=== PATIENT | female | born 1955 | race Two or more races ===

== ENCOUNTER → 2020-03-05 13:02 | Outpatient (BNVA) | payer OTHER, SELFPAY | PROVIDERS: PCP Internal Medicine; Visit Provider Internal Medicine | DX: I82.402 Acute embolism and thrombosis of unspecified deep veins of left lower extremity (principal); Z51.81 Encounter for therapeutic drug level monitoring; Z79.01 Long term (current) use of anticoagulants | CPT/HCPCS: 85610; 99211 ==

== ENCOUNTER → 2020-03-19 13:15 | Outpatient (BNVA) | payer OTHER, SELFPAY | PROVIDERS: PCP Internal Medicine; Visit Provider Internal Medicine | DX: I82.402 Acute embolism and thrombosis of unspecified deep veins of left lower extremity (principal); Z51.81 Encounter for therapeutic drug level monitoring; Z79.01 Long term (current) use of anticoagulants | CPT/HCPCS: 85610; 99211 ==

== ENCOUNTER → 2020-03-26 13:28 | Outpatient (BNVA) | payer OTHER, SELFPAY | PROVIDERS: PCP Internal Medicine; Visit Provider Internal Medicine | DX: I82.402 Acute embolism and thrombosis of unspecified deep veins of left lower extremity (principal); Z51.81 Encounter for therapeutic drug level monitoring; Z79.01 Long term (current) use of anticoagulants | CPT/HCPCS: 85610; 99211 ==

== ENCOUNTER → 2020-04-03 11:42 | Outpatient (BNVA) | payer OTHER, SELFPAY | PROVIDERS: PCP Internal Medicine; Visit Provider Internal Medicine | DX: I82.402 Acute embolism and thrombosis of unspecified deep veins of left lower extremity (principal); Z51.81 Encounter for therapeutic drug level monitoring; Z79.01 Long term (current) use of anticoagulants | CPT/HCPCS: 85610; 99211 ==

== ENCOUNTER → 2020-04-15 14:23 | Outpatient (BNVA) | payer OTHER, SELFPAY | PROVIDERS: Visit Provider Internal Medicine | DX: I82.409 Acute embolism and thrombosis of unspecified deep veins of unspecified lower extremity (principal); Z51.81 Encounter for therapeutic drug level monitoring; Z79.01 Long term (current) use of anticoagulants | CPT/HCPCS: 85610; 99211 ==

== ENCOUNTER → 2020-05-01 13:24 | Outpatient (BNVA) | payer OTHER, SELFPAY | PROVIDERS: PCP Internal Medicine; Visit Provider Internal Medicine | DX: I82.409 Acute embolism and thrombosis of unspecified deep veins of unspecified lower extremity (principal); Z51.81 Encounter for therapeutic drug level monitoring; Z79.01 Long term (current) use of anticoagulants | CPT/HCPCS: 85610; 99211 ==

== ENCOUNTER → 2020-05-14 13:04 | Outpatient (BNVA) | payer OTHER, SELFPAY | PROVIDERS: PCP Internal Medicine; Visit Provider Internal Medicine | DX: I82.409 Acute embolism and thrombosis of unspecified deep veins of unspecified lower extremity (principal); Z51.81 Encounter for therapeutic drug level monitoring; Z79.01 Long term (current) use of anticoagulants | CPT/HCPCS: 85610; 99211 ==

== ENCOUNTER → 2020-06-04 13:05 | Outpatient (BNVA) | payer OTHER, SELFPAY | PROVIDERS: PCP Internal Medicine; Visit Provider Internal Medicine | DX: I82.409 Acute embolism and thrombosis of unspecified deep veins of unspecified lower extremity (principal); Z79.01 Long term (current) use of anticoagulants; Z51.81 Encounter for therapeutic drug level monitoring | CPT/HCPCS: 85610; 99211 ==

== ENCOUNTER → 2020-07-02 09:12 | Outpatient (BNVA) | payer OTHER, SELFPAY | PROVIDERS: PCP Internal Medicine; Visit Provider Internal Medicine | DX: I82.402 Acute embolism and thrombosis of unspecified deep veins of left lower extremity (principal); Z51.81 Encounter for therapeutic drug level monitoring; Z79.01 Long term (current) use of anticoagulants | CPT/HCPCS: 85610; 99211 ==

== ENCOUNTER → 2020-07-30 11:34 | Outpatient (BNVA) | payer OTHER, SELFPAY | PROVIDERS: PCP Internal Medicine; Visit Provider Internal Medicine | DX: I82.402 Acute embolism and thrombosis of unspecified deep veins of left lower extremity (principal); Z51.81 Encounter for therapeutic drug level monitoring; Z79.01 Long term (current) use of anticoagulants | CPT/HCPCS: 85610; 99211 ==

== ENCOUNTER → 2020-08-20 11:01 | Outpatient (BNVA) | payer OTHER, SELFPAY | PROVIDERS: PCP Internal Medicine; Visit Provider Internal Medicine | DX: I82.402 Acute embolism and thrombosis of unspecified deep veins of left lower extremity (principal); Z51.81 Encounter for therapeutic drug level monitoring; Z79.01 Long term (current) use of anticoagulants | CPT/HCPCS: 85610; 99211 ==

== ENCOUNTER 2020-08-27 11:05 | Outpatient (REF) | payer OTHER, SELFPAY ==
[2020-08-27 13:17] LABS: MANUAL DIFF FLAG NO
[2020-08-27 13:23] LABS: Basophils Percent Auto 0.3 % (0-2); Eosinophils Absolute Auto 0.2 X10*3/uL (0.0-0.4); Eosinophils Percent Auto 2.9 % (0-4); Hematocrit 42.9 % (37-47); Hemoglobin 14.3 g/dl (12.0-16.0); Imm Gran Abs Auto 0.01 X10*3/uL (0.00-0.03); Imm Gran Pct Auto 0.2 % (0.0-0.4); Lymphocytes Absolute Auto 1.6 X10*3/uL (1.2-4.9); Lymphocytes Percent Auto 27.3 % (20-40); Mean Corpuscular HGB Conc 33.3 g/dl (31.0-35.0); Mean Corpuscular Hemoglobin 28.7 pg (27.0-33.0); Mean Corpuscular Volume 86.1 fL (80-98); Monocytes Absolute Auto 0.5 X10*3/uL (0.1-1.2); Monocytes Percent Auto 8.9 % (2-11); Neutrophils Absolute Auto 3.5 X10*3/uL (2.0-8.3); Neutrophils Percent Auto 60.4 % (45-73); Platelet Count 204 X10*3/uL (160-400); Red Blood Count 4.98 X10*6/uL (4.20-5.50); Red Cell Distribution Width 13.8 % (11.0-16.0); White Blood Count 5.9 X10*3/uL (4.8-10.8)
[2020-08-27 13:30] LABS: D Dimer 268 NG/ML
[2020-08-27 13:37] LABS: Estimated Average Glucose 206 mg/dL; Hemoglobin A1c % 8.8 %
[2020-08-27 13:43] LABS: Alanine Aminotransferase 37 U/L (0-31); Alkaline Phosphatase 92 U/L (39-117); Anion Gap 14 (12-20); Aspartate Amino Transferase 34 U/L (5-31); Bilirubin Direct 0.3 mg/dL (0.0-0.5); Bilirubin Total 0.7 mg/dL (0.0-1.0); Blood Urea Nitrogen 20 mg/dL (9-16); Calcium 9.2 mg/dL (8.4-10.2); Carbon Dioxide 26 mmol/L (22-29); Chloride 103 mmol/L (96-108); Estimated Glomerular Filt Rate 53; Glucose Random 313 mg/dL (60-115); Potassium 4.6 mmol/L (3.3-5.1); Sodium 138 mmol/L (135-145); Total Protein 6.8 g/dL (6.5-8.0)
[2020-08-27 13:50] LABS: Creatinine Urine 119.58 mg/dL; Microalbum/Creatinine Ratio Ur 64.3 ug/mg cr
[2020-08-28 05:12] LABS: LDL Cholesterol Direct 83 mg/dL (<100)
== END 2020-08-27 11:06 | disposition home or self-care (01) ==
LOC: HO.LAB 11:05
PROVIDERS: Absent Provider Internal Medicine; PCP Internal Medicine; Referring Provider Internal Medicine Medical Oncology; Visit Provider Internal Medicine
DX: E13.9 Other specified diabetes mellitus without complications (principal); N18.2 Chronic kidney disease, stage 2 (mild); E55.9 Vitamin D deficiency, unspecified; K21.9 Gastro-esophageal reflux disease without esophagitis; E66.01 Morbid (severe) obesity due to excess calories; I82.409 Acute embolism and thrombosis of unspecified deep veins of unspecified lower extremity; Z79.4 Long term (current) use of insulin
CPT/HCPCS: 36415; 80053; 80076; 82043; 82248; 83036; 83721; 85025; 85379; 85610; 99211

== ENCOUNTER 2020-09-08 11:29 | Outpatient (REF) | payer OTHER, SELFPAY ==
--- NOTE | ~2020-09-08 | MM_ITS ---
EXAMINATION: MM SCREENING DIGITAL BREAST TOMOSYNTHESIS, BILATERAL CLINICAL INFORMATION: Screening. Asymptomatic. The lifetime risk of breast cancer based on the Tyrer-Cuzick Model is 8.9%. COMPARISON: Mammography: June 17, 2019 and studies dating back to January 30, 2014 TECHNIQUE: Digital breast tomosynthesis is performed in both the craniocaudal and mediolateral oblique views along with computer-aided detection (CAD). Synthesized 2D images are generated from the tomosynthesis. FINDINGS: The breasts are almost entirely fatty (ACR BI-RADS breast composition Category a). There are no significant masses, abnormal calcifications, or other abnormalities. MM/MM tomosynthesis screening BI IMPRESSION: There are no significant changes from prior study. ASSESSMENT: BI-RADS 1: Negative RECOMMENDATION: Routine annual mammography screening. This patient's information was entered into a reminder system with a target due date for their next mammogram.
== END 2020-09-08 11:30 | disposition home or self-care (01) ==
LOC: HO.MAMMO 11:29
PROVIDERS: PCP Internal Medicine; Visit Provider Internal Medicine
DX: Z12.31 Encounter for screening mammogram for malignant neoplasm of breast (principal)
CPT/HCPCS: 77063; 77067

== ENCOUNTER → 2020-09-10 11:01 | Outpatient (BNVA) | payer OTHER, SELFPAY | PROVIDERS: PCP Internal Medicine; Visit Provider Internal Medicine | DX: I82.402 Acute embolism and thrombosis of unspecified deep veins of left lower extremity (principal); Z51.81 Encounter for therapeutic drug level monitoring; Z79.01 Long term (current) use of anticoagulants | CPT/HCPCS: 85610; 99211 ==

== ENCOUNTER → 2020-10-01 11:20 | Outpatient (BNVA) | payer OTHER, SELFPAY | PROVIDERS: PCP Internal Medicine; Visit Provider Internal Medicine | DX: I82.402 Acute embolism and thrombosis of unspecified deep veins of left lower extremity (principal); Z51.81 Encounter for therapeutic drug level monitoring; Z79.01 Long term (current) use of anticoagulants | CPT/HCPCS: 85610; 99211 ==

== ENCOUNTER → 2020-10-29 11:28 | Outpatient (BNVA) | payer OTHER, SELFPAY | PROVIDERS: PCP Internal Medicine; Visit Provider Internal Medicine | DX: I82.402 Acute embolism and thrombosis of unspecified deep veins of left lower extremity (principal); Z51.81 Encounter for therapeutic drug level monitoring; Z79.01 Long term (current) use of anticoagulants | CPT/HCPCS: 85610; 99211 ==

== ENCOUNTER → 2020-11-26 11:38 | Outpatient (BNVA) | payer OTHER, SELFPAY | PROVIDERS: PCP Internal Medicine; Visit Provider Internal Medicine | DX: I82.402 Acute embolism and thrombosis of unspecified deep veins of left lower extremity (principal); Z51.81 Encounter for therapeutic drug level monitoring; Z79.01 Long term (current) use of anticoagulants | CPT/HCPCS: 85610; 99211 ==

== ENCOUNTER → 2020-12-24 11:43 | Outpatient (BNVA) | payer OTHER, SELFPAY | PROVIDERS: PCP Internal Medicine; Visit Provider Internal Medicine | DX: I82.402 Acute embolism and thrombosis of unspecified deep veins of left lower extremity (principal); Z51.81 Encounter for therapeutic drug level monitoring; Z79.01 Long term (current) use of anticoagulants | CPT/HCPCS: 85610; 99211 ==

== ENCOUNTER → 2021-01-21 11:30 | Outpatient (BNVA) | payer OTHER, SELFPAY | PROVIDERS: PCP Internal Medicine; Visit Provider Internal Medicine | DX: I82.402 Acute embolism and thrombosis of unspecified deep veins of left lower extremity (principal); Z51.81 Encounter for therapeutic drug level monitoring; Z79.01 Long term (current) use of anticoagulants | CPT/HCPCS: 85610; 99211 ==

== ENCOUNTER → 2021-02-18 11:22 | Outpatient (BNVA) | payer OTHER, SELFPAY | PROVIDERS: PCP Internal Medicine; Visit Provider Internal Medicine | DX: I82.402 Acute embolism and thrombosis of unspecified deep veins of left lower extremity (principal); Z51.81 Encounter for therapeutic drug level monitoring; Z79.01 Long term (current) use of anticoagulants | CPT/HCPCS: 85610; 99211 ==

== ENCOUNTER → 2021-03-11 11:11 | Outpatient (BNVA) | payer OTHER, SELFPAY | PROVIDERS: PCP Internal Medicine; Visit Provider Internal Medicine | DX: I82.402 Acute embolism and thrombosis of unspecified deep veins of left lower extremity (principal); Z51.81 Encounter for therapeutic drug level monitoring; Z79.01 Long term (current) use of anticoagulants | CPT/HCPCS: 85610; 99211 ==

== ENCOUNTER 2021-03-23 14:30 | Outpatient (REF) | payer OTHER, SELFPAY ==
[2021-03-23 16:29] LABS: MANUAL DIFF FLAG NO
[2021-03-23 16:33] LABS: Basophils Percent Auto 0.3 % (0-2); Eosinophils Absolute Auto 0.2 X10*3/uL (0.0-0.4); Eosinophils Percent Auto 2.3 % (0-4); Hematocrit 44.2 % (37.0-47.0); Hemoglobin 14.8 g/dl (12.0-16.0); Imm Gran Abs Auto 0.03 X10*3/uL (0.00-0.03); Imm Gran Pct Auto 0.4 % (0.0-0.4); Lymphocytes Absolute Auto 1.8 X10*3/uL (1.2-4.9); Lymphocytes Percent Auto 23.8 % (20-40); Mean Corpuscular HGB Conc 33.5 g/dl (31.0-35.0); Mean Corpuscular Hemoglobin 28.3 pg (27.0-33.0); Mean Corpuscular Volume 84.5 fL (80.0-98.0); Mean Platelet Volume 12.9 fL (9.4-12.3); Monocytes Absolute Auto 0.7 X10*3/uL (0.1-1.2); Monocytes Percent Auto 9.5 % (2-11); Neutrophils Absolute Auto 4.9 x10*3/uL (2.0-8.3); Neutrophils Percent Auto 63.7 % (45-73); Platelet Count 210 X10*3/uL (160-400); Red Blood Count 5.23 X10*6/uL (4.20-5.50); White Blood Count 7.7 X10*3/uL (4.8-10.8)
[2021-03-23 16:51] LABS: Alanine Aminotransferase 28 U/L (0-31); Albumin Level 4.2 g/dL (3.5-5.0); Alkaline Phosphatase 90 U/L (39-117); Anion Gap 12 (12-20); Aspartate Amino Transferase 29 U/L (5-31); Bilirubin Total 0.6 mg/dL (0.0-1.0); Blood Urea Nitrogen 19 mg/dL (9-16); Calcium 9.3 mg/dL (8.4-10.2); Carbon Dioxide 25 mmol/L (22-29); Chloride 107 mmol/L (96-108); Estimated Glomerular Filt Rate 52; Glucose Random 185 mg/dL (60-115); Magnesium 1.8 mg/dL (1.6-2.6); Sodium 140 mmol/L (135-145); Total Protein 6.9 g/dL (6.5-8.0)
[2021-03-23 16:56] LABS: Creatinine Urine 129.51 mg/dL; Microalbum/Creatinine Ratio Ur 79.5 ug/mg cr
[2021-03-23 17:14] LABS: Estimated Average Glucose 186 mg/dL; Hemoglobin A1c % 8.1 %
== END 2021-03-23 14:31 | disposition home or self-care (01) ==
LOC: HO.HMGCLDS 14:30
PROVIDERS: PCP Internal Medicine; Visit Provider Internal Medicine
DX: I12.9 Hypertensive chronic kidney disease with stage 1 through stage 4 chronic kidney disease, or unspecified chronic kidney disease (principal); N18.2 Chronic kidney disease, stage 2 (mild); E11.22 Type 2 diabetes mellitus with diabetic chronic kidney disease; E11.21 Type 2 diabetes mellitus with diabetic nephropathy; E66.01 Morbid (severe) obesity due to excess calories; F32.9 Major depressive disorder, single episode, unspecified; F41.9 Anxiety disorder, unspecified; K21.9 Gastro-esophageal reflux disease without esophagitis; Z79.4 Long term (current) use of insulin; Z91.09 Other allergy status, other than to drugs and biological substances
CPT/HCPCS: 36415; 80053; 82043; 83036; 83735; 85025

== ENCOUNTER → 2021-03-25 11:14 | Outpatient (BNVA) | payer OTHER, SELFPAY | PROVIDERS: PCP Internal Medicine; Visit Provider Internal Medicine | DX: I82.402 Acute embolism and thrombosis of unspecified deep veins of left lower extremity (principal); Z79.01 Long term (current) use of anticoagulants; Z51.81 Encounter for therapeutic drug level monitoring | CPT/HCPCS: 85610; 99211 ==

== ENCOUNTER → 2021-04-15 11:28 | Outpatient (BNVA) | payer OTHER, SELFPAY | PROVIDERS: PCP Internal Medicine; Visit Provider Internal Medicine | DX: I82.402 Acute embolism and thrombosis of unspecified deep veins of left lower extremity (principal); Z51.81 Encounter for therapeutic drug level monitoring; Z79.01 Long term (current) use of anticoagulants | CPT/HCPCS: 85610; 99211 ==

== ENCOUNTER → 2021-05-06 10:59 | Outpatient (BNVA) | payer OTHER, SELFPAY | PROVIDERS: PCP Internal Medicine; Visit Provider Internal Medicine | DX: I82.402 Acute embolism and thrombosis of unspecified deep veins of left lower extremity (principal); Z51.81 Encounter for therapeutic drug level monitoring; Z79.01 Long term (current) use of anticoagulants | CPT/HCPCS: 85610; 99211 ==

== ENCOUNTER → 2021-06-03 11:06 | Outpatient (BNVA) | payer OTHER, SELFPAY | PROVIDERS: PCP Internal Medicine; Visit Provider Internal Medicine | DX: I82.402 Acute embolism and thrombosis of unspecified deep veins of left lower extremity (principal); Z51.81 Encounter for therapeutic drug level monitoring; Z79.01 Long term (current) use of anticoagulants | CPT/HCPCS: 85610; 99211 ==

== ENCOUNTER → 2021-06-24 11:08 | Outpatient (BNVA) | payer OTHER, SELFPAY | PROVIDERS: PCP Internal Medicine; Visit Provider Internal Medicine | DX: I82.402 Acute embolism and thrombosis of unspecified deep veins of left lower extremity (principal); Z51.81 Encounter for therapeutic drug level monitoring; Z79.01 Long term (current) use of anticoagulants | CPT/HCPCS: 85610; 99211 ==

== ENCOUNTER 2021-07-12 09:55 | Outpatient (REF) | payer OTHER, SELFPAY ==
[2021-07-12 11:47] LABS: Estimated Average Glucose 174 mg/dL; Hemoglobin A1c % 7.7 %
[2021-07-12 11:55] LABS: Alanine Aminotransferase 25 U/L (0-31); Albumin Level 4.1 g/dL (3.5-5.0); Alkaline Phosphatase 94 U/L (39-117); Anion Gap 13 (12-20); Aspartate Amino Transferase 28 U/L (5-31); Bilirubin Total 0.7 mg/dL (0.0-1.0); Blood Urea Nitrogen 17 mg/dL (9-16); Calcium 9.5 mg/dL (8.4-10.2); Carbon Dioxide 27 mmol/L (22-29); Chloride 103 mmol/L (96-108); Estimated Glomerular Filt Rate 50; Glucose Random 179 mg/dL (60-115); Potassium 4.4 mmol/L (3.3-5.1); Sodium 139 mmol/L (135-145)
== END 2021-07-12 09:56 | disposition home or self-care (01) ==
LOC: HO.HMGCLDS 09:55
PROVIDERS: Visit Provider Internal Medicine
DX: F41.9 Anxiety disorder, unspecified (principal); F32.9 Major depressive disorder, single episode, unspecified; E66.01 Morbid (severe) obesity due to excess calories; E11.22 Type 2 diabetes mellitus with diabetic chronic kidney disease; I12.9 Hypertensive chronic kidney disease with stage 1 through stage 4 chronic kidney disease, or unspecified chronic kidney disease; E11.21 Type 2 diabetes mellitus with diabetic nephropathy; N18.2 Chronic kidney disease, stage 2 (mild); K21.9 Gastro-esophageal reflux disease without esophagitis; E13.9 Other specified diabetes mellitus without complications; Z79.4 Long term (current) use of insulin
CPT/HCPCS: 36415; 80053; 83036

== ENCOUNTER 2021-07-13 12:28 | Outpatient (REF) | payer OTHER, SELFPAY ==
[2021-07-13 13:33] LABS: Creatinine Urine 106.37 mg/dL; Microalbum/Creatinine Ratio Ur 25.3 ug/mg cr
== END 2021-07-13 12:29 | disposition home or self-care (01) ==
LOC: HO.LNP 12:28
PROVIDERS: Visit Provider Internal Medicine
DX: E10.21 Type 1 diabetes mellitus with diabetic nephropathy (principal); E10.22 Type 1 diabetes mellitus with diabetic chronic kidney disease; I12.9 Hypertensive chronic kidney disease with stage 1 through stage 4 chronic kidney disease, or unspecified chronic kidney disease; N18.2 Chronic kidney disease, stage 2 (mild); K21.9 Gastro-esophageal reflux disease without esophagitis; E66.01 Morbid (severe) obesity due to excess calories; F41.8 Other specified anxiety disorders; Z79.4 Long term (current) use of insulin
CPT/HCPCS: 82043

== ENCOUNTER → 2021-07-15 10:56 | Outpatient (BNVA) | payer OTHER, SELFPAY | PROVIDERS: PCP Internal Medicine; Visit Provider Internal Medicine | DX: Z86.718 Personal history of other venous thrombosis and embolism (principal); Z51.81 Encounter for therapeutic drug level monitoring; Z79.01 Long term (current) use of anticoagulants | CPT/HCPCS: 85610; 99211 ==

== ENCOUNTER → 2021-08-12 11:12 | Outpatient (BNVA) | payer OTHER, SELFPAY | PROVIDERS: PCP Internal Medicine; Visit Provider Internal Medicine | DX: Z86.718 Personal history of other venous thrombosis and embolism (principal); Z51.81 Encounter for therapeutic drug level monitoring; Z79.01 Long term (current) use of anticoagulants | CPT/HCPCS: 85610; 99211 ==

== ENCOUNTER 2021-08-25 08:50 | Outpatient (REF) | payer OTHER, SELFPAY ==
--- NOTE | ~2021-08-25 | MM_ITS ---
EXAMINATION: MM DIAGNOSTIC DIGITAL BREAST TOMOSYNTHESIS, BILATERAL US DIAGNOSTIC ULTRASOUND BREAST, RIGHT CLINICAL INFORMATION: Palpable area periareolar upper outer right breast noted at routine clinical exam. No palpable concern noted by patient. No discharge. Due for yearly. Family history breast cancer, sister. The lifetime risk of breast cancer based on the Tyrer-Cuzick Model is 9%. COMPARISON: Mammography: 09/08/2020, 06/17/2019, 01/31/2018. TECHNIQUE: Digital breast tomosynthesis is performed in both the craniocaudal and mediolateral oblique views along with computer-aided detection (CAD). Synthesized 2D images are generated from the tomosynthesis. Additional right CC and right MLO views are obtained with nipple in profile. Ultrasound right breast is targeted to the retroareolar and periareolar region including the periareolar upper outer quadrant in area of recent palpable concern at clinical exam. Grayscale imaging and color Doppler are performed without and with harmonics. FINDINGS: There are scattered areas of fibroglandular density (ACR BI-RADS breast composition Category b). Parenchymal pattern is similar to prior studies. There is no developing density or interval mass or architectural abnormality. No skin thickening or coarsening of the Adeel's ligaments. There is a biopsy clip marker again noted left breast mid upper outer quadrant. Scattered bilateral predominantly vascular and some punctate round calcifications are again seen. No significant changes. Ultrasound demonstrates no cystic or solid mass, architectural abnormality, or focal duct ectasia. No skin thickening or edema tracking in soft tissue planes. No hyperemia. Results are discussed with the patient at time of visit. MM/MM tomosynthesis diagnostic BI IMPRESSION: -No mammographic evidence of malignancy. -Unremarkable right breast ultrasound. ASSESSMENT: BI-RADS 1: Negative RECOMMENDATION: 1. Patient should be managed based on the clinical impression. If there is still a clinically palpable concern, further evaluation may be considered with surgical consult. Decision to proceed with biopsy should be based on clinical grounds and degree of clinical concern. 2. Otherwise, routine annual screening mammography. This patient's information was entered into a reminder system with a target due date for their next mammogram.
== END 2021-08-25 08:51 | disposition home or self-care (01) ==
LOC: HO.MAMMO 08:50
PROVIDERS: PCP Internal Medicine; Visit Provider Internal Medicine
DX: N64.59 Other signs and symptoms in breast (principal)
CPT/HCPCS: 76642; 77062; 77066

== ENCOUNTER → 2021-08-26 11:15 | Outpatient (BNVA) | payer OTHER, SELFPAY | PROVIDERS: PCP Internal Medicine; Visit Provider Internal Medicine | DX: Z86.718 Personal history of other venous thrombosis and embolism (principal); Z79.01 Long term (current) use of anticoagulants; Z51.81 Encounter for therapeutic drug level monitoring | CPT/HCPCS: 85610; 99211 ==

== ENCOUNTER → 2021-09-09 11:35 | Outpatient (BNVA) | payer OTHER, SELFPAY | PROVIDERS: PCP Internal Medicine; Visit Provider Internal Medicine | DX: Z86.718 Personal history of other venous thrombosis and embolism (principal); Z79.01 Long term (current) use of anticoagulants; Z51.81 Encounter for therapeutic drug level monitoring | CPT/HCPCS: 85610; 99211 ==

== ENCOUNTER → 2021-09-23 11:13 | Outpatient (BNVA) | payer OTHER, SELFPAY | PROVIDERS: PCP Internal Medicine; Visit Provider Internal Medicine | DX: Z86.718 Personal history of other venous thrombosis and embolism (principal); Z79.01 Long term (current) use of anticoagulants; Z51.81 Encounter for therapeutic drug level monitoring | CPT/HCPCS: 85610; 99211 ==

== ENCOUNTER 2021-10-07 10:14 | Outpatient (REF) | payer OTHER, SELFPAY ==
[2021-10-13 06:12] LABS: HPV mRNA E6/E7 rflx Not Detected (Not Detected)
== END 2021-10-07 10:15 | disposition home or self-care (01) ==
LOC: HO.LAB 10:14
PROVIDERS: PCP Internal Medicine; Visit Provider Advanced Practice Midwife
DX: Z01.419 Encounter for gynecological examination (general) (routine) without abnormal findings (principal); Z87.891 Personal history of nicotine dependence
CPT/HCPCS: 87624; 88142

== ENCOUNTER → 2021-10-08 11:20 | Outpatient (BNVA) | payer OTHER, SELFPAY | PROVIDERS: PCP Internal Medicine; Visit Provider Internal Medicine | DX: Z86.718 Personal history of other venous thrombosis and embolism (principal); Z79.01 Long term (current) use of anticoagulants; Z51.81 Encounter for therapeutic drug level monitoring | CPT/HCPCS: 85610; 99211 ==

== ENCOUNTER → 2021-10-22 11:17 | Outpatient (BNVA) | payer OTHER, SELFPAY | PROVIDERS: PCP Internal Medicine; Visit Provider Internal Medicine | DX: Z86.718 Personal history of other venous thrombosis and embolism (principal); Z79.01 Long term (current) use of anticoagulants; Z51.81 Encounter for therapeutic drug level monitoring | CPT/HCPCS: 85610; 99211 ==

== ENCOUNTER → 2021-11-11 15:16 | Outpatient (BNVA) | payer OTHER, SELFPAY | PROVIDERS: PCP Internal Medicine; Visit Provider Internal Medicine | DX: Z86.718 Personal history of other venous thrombosis and embolism (principal); Z51.81 Encounter for therapeutic drug level monitoring; Z79.01 Long term (current) use of anticoagulants | CPT/HCPCS: 85610; 99211 ==

== ENCOUNTER 2021-11-23 10:37 | Outpatient (REF) | payer OTHER, SELFPAY ==
[2021-11-23 14:02] LABS: Alanine Aminotransferase 25 U/L (0-31); Albumin Level 4.2 g/dL (3.5-5.0); Alkaline Phosphatase 79 U/L (39-117); Anion Gap 12 (12-20); Aspartate Amino Transferase 30 U/L (5-31); Bilirubin Total 0.9 mg/dL (0.0-1.0); Blood Urea Nitrogen 20 mg/dL (9-16); Calcium 9.4 mg/dL (8.4-10.2); Carbon Dioxide 27 mmol/L (22-29); Chloride 104 mmol/L (96-108); Estimated Glomerular Filt Rate 49; Glucose Random 249 mg/dL (60-115); Potassium 4.6 mmol/L (3.3-5.1); Sodium 138 mmol/L (135-145)
[2021-11-23 14:06] LABS: Estimated Average Glucose 194 mg/dL; Hemoglobin A1c % 8.4 %
== END 2021-11-23 10:38 | disposition home or self-care (01) ==
LOC: HO.HMGCLDS 10:37
PROVIDERS: Visit Provider Internal Medicine
DX: Z00.01 Encounter for general adult medical examination with abnormal findings (principal); E11.21 Type 2 diabetes mellitus with diabetic nephropathy; F32.9 Major depressive disorder, single episode, unspecified; F41.9 Anxiety disorder, unspecified; I10 Essential (primary) hypertension; K21.9 Gastro-esophageal reflux disease without esophagitis; Z91.09 Other allergy status, other than to drugs and biological substances; Z79.4 Long term (current) use of insulin
CPT/HCPCS: 36415; 80053; 83036

== ENCOUNTER → 2021-12-02 11:11 | Outpatient (BNVA) | payer OTHER, SELFPAY | PROVIDERS: PCP Internal Medicine; Visit Provider Internal Medicine | DX: Z86.718 Personal history of other venous thrombosis and embolism (principal); Z79.01 Long term (current) use of anticoagulants; Z51.81 Encounter for therapeutic drug level monitoring | CPT/HCPCS: 85610; 99211 ==

== ENCOUNTER → 2021-12-30 09:16 | Outpatient (BNVA) | payer OTHER, SELFPAY | PROVIDERS: PCP Internal Medicine; Visit Provider Internal Medicine | DX: Z86.718 Personal history of other venous thrombosis and embolism (principal); Z79.01 Long term (current) use of anticoagulants; Z51.81 Encounter for therapeutic drug level monitoring | CPT/HCPCS: 85610; 99211 ==

== ENCOUNTER → 2022-01-27 10:58 | Outpatient (BNVA) | payer OTHER, SELFPAY | PROVIDERS: PCP Internal Medicine; Visit Provider Internal Medicine | DX: Z86.718 Personal history of other venous thrombosis and embolism (principal); Z79.01 Long term (current) use of anticoagulants; Z51.81 Encounter for therapeutic drug level monitoring | CPT/HCPCS: 85610; 99211 ==

== ENCOUNTER → 2022-02-03 10:52 | Outpatient (BNVA) | payer OTHER, SELFPAY | PROVIDERS: PCP Internal Medicine; Visit Provider Internal Medicine | DX: Z86.718 Personal history of other venous thrombosis and embolism (principal); Z79.01 Long term (current) use of anticoagulants; Z51.81 Encounter for therapeutic drug level monitoring | CPT/HCPCS: 85610; 99211 ==

== ENCOUNTER → 2022-02-25 11:00 | Outpatient (BNVA) | payer OTHER, SELFPAY | PROVIDERS: PCP Internal Medicine; Visit Provider Internal Medicine | DX: Z86.718 Personal history of other venous thrombosis and embolism (principal); Z79.01 Long term (current) use of anticoagulants; Z51.81 Encounter for therapeutic drug level monitoring | CPT/HCPCS: 85610; 99211 ==

== ENCOUNTER → 2022-03-10 11:14 | Outpatient (BNVA) | payer OTHER, SELFPAY | PROVIDERS: PCP Internal Medicine; Visit Provider Internal Medicine | DX: Z86.718 Personal history of other venous thrombosis and embolism (principal); Z79.01 Long term (current) use of anticoagulants; Z51.81 Encounter for therapeutic drug level monitoring | CPT/HCPCS: 85610; 99211 ==

== ENCOUNTER 2022-03-21 10:01 | Outpatient (REF) | payer OTHER, SELFPAY ==
[2022-03-21 11:22] LABS: MANUAL DIFF FLAG NO
[2022-03-21 11:25] LABS: Basophils Percent Auto 0.5 % (0-2); Eosinophils Absolute Auto 0.2 X10*3/uL (0.0-0.4); Eosinophils Percent Auto 3.1 % (0-4); Hematocrit 42.2 % (37.0-47.0); Imm Gran Abs Auto 0.01 X10*3/uL (0.00-0.03); Imm Gran Pct Auto 0.2 % (0.0-0.4); Lymphocytes Absolute Auto 1.6 X10*3/uL (1.2-4.9); Lymphocytes Percent Auto 26.6 % (20-40); Mean Corpuscular HGB Conc 33.2 g/dl (31.0-35.0); Mean Corpuscular Hemoglobin 28.2 pg (27.0-33.0); Mean Corpuscular Volume 85.1 fL (80.0-98.0); Mean Platelet Volume 12.3 fL (9.4-12.3); Monocytes Absolute Auto 0.6 X10*3/uL (0.1-1.2); Monocytes Percent Auto 10.2 % (2-11); Neutrophils Absolute Auto 3.5 x10*3/uL (2.0-8.3); Neutrophils Percent Auto 59.4 % (45-73); Platelet Count 194 X10*3/uL (160-400); Red Blood Count 4.96 X10*6/uL (4.20-5.50); Red Cell Distribution Width 13.7 % (11.0-16.0); White Blood Count 5.9 X10*3/uL (4.8-10.8)
[2022-03-21 12:00] LABS: Creatinine Urine 114.02 mg/dL; Microalbum/Creatinine Ratio Ur 53.4 ug/mg cr
[2022-03-21 12:28] LABS: Estimated Average Glucose 151 mg/dL; Hemoglobin A1c % 6.9 %
[2022-03-21 12:29] LABS: Alanine Aminotransferase 26 U/L (0-31); Albumin Level 4.1 g/dL (3.5-5.0); Alkaline Phosphatase 85 U/L (39-117); Anion Gap 16 (12-20); Aspartate Amino Transferase 31 U/L (5-31); Bilirubin Total 0.6 mg/dL (0.0-1.0); Blood Urea Nitrogen 20 mg/dL (9-16); Calcium 9.1 mg/dL (8.4-10.2); Carbon Dioxide 24 mmol/L (22-29); Chloride 105 mmol/L (96-108); Estimated Glomerular Filt Rate 47; Glucose Random 116 mg/dL (60-115); Potassium 4.3 mmol/L (3.3-5.1); Sodium 141 mmol/L (135-145); Total Protein 6.8 g/dL (6.5-8.0)
== END 2022-03-21 10:02 | disposition home or self-care (01) ==
LOC: HO.HMGCLDS 10:01
PROVIDERS: PCP Internal Medicine; Visit Provider Internal Medicine
DX: I12.9 Hypertensive chronic kidney disease with stage 1 through stage 4 chronic kidney disease, or unspecified chronic kidney disease (principal); E11.22 Type 2 diabetes mellitus with diabetic chronic kidney disease; E11.21 Type 2 diabetes mellitus with diabetic nephropathy; N18.2 Chronic kidney disease, stage 2 (mild); F32.9 Major depressive disorder, single episode, unspecified; F41.9 Anxiety disorder, unspecified; K21.9 Gastro-esophageal reflux disease without esophagitis; Z79.4 Long term (current) use of insulin
CPT/HCPCS: 36415; 80053; 82043; 83036; 85025

== ENCOUNTER → 2022-03-30 10:52 | Outpatient (BNVA) | payer OTHER, SELFPAY | PROVIDERS: PCP Internal Medicine; Visit Provider Internal Medicine | DX: Z86.718 Personal history of other venous thrombosis and embolism (principal); Z79.01 Long term (current) use of anticoagulants; Z51.81 Encounter for therapeutic drug level monitoring | CPT/HCPCS: 85610; 99211 ==

== ENCOUNTER → 2022-04-06 10:21 | Outpatient (BNVA) | payer OTHER, SELFPAY | PROVIDERS: PCP Internal Medicine; Visit Provider Internal Medicine | DX: Z86.718 Personal history of other venous thrombosis and embolism (principal); Z79.01 Long term (current) use of anticoagulants; Z51.81 Encounter for therapeutic drug level monitoring | CPT/HCPCS: 85610; 99211 ==

== ENCOUNTER → 2022-04-21 11:01 | Outpatient (BNVA) | payer OTHER, SELFPAY | PROVIDERS: PCP Internal Medicine; Visit Provider Internal Medicine | DX: Z86.718 Personal history of other venous thrombosis and embolism (principal); Z79.01 Long term (current) use of anticoagulants; Z51.81 Encounter for therapeutic drug level monitoring | CPT/HCPCS: 85610; 99211 ==

== ENCOUNTER → 2022-05-05 13:15 | Outpatient (BNVA) | payer OTHER, SELFPAY | PROVIDERS: PCP Internal Medicine; Visit Provider Internal Medicine | DX: Z86.718 Personal history of other venous thrombosis and embolism (principal); Z79.01 Long term (current) use of anticoagulants; Z51.81 Encounter for therapeutic drug level monitoring | CPT/HCPCS: 85610; 99211 ==

== ENCOUNTER → 2022-05-26 11:41 | Outpatient (BNVA) | payer OTHER, SELFPAY | PROVIDERS: PCP Internal Medicine; Visit Provider Internal Medicine | DX: Z86.718 Personal history of other venous thrombosis and embolism (principal); Z79.01 Long term (current) use of anticoagulants; Z51.81 Encounter for therapeutic drug level monitoring | CPT/HCPCS: 85610; 99211 ==

== ENCOUNTER → 2022-05-30 08:24 | Outpatient (BNVA) | payer OTHER, SELFPAY | PROVIDERS: PCP Internal Medicine; Visit Provider Internal Medicine | DX: Z86.718 Personal history of other venous thrombosis and embolism (principal); Z79.01 Long term (current) use of anticoagulants; Z51.81 Encounter for therapeutic drug level monitoring | CPT/HCPCS: 85610; 99211 ==

== ENCOUNTER → 2022-06-07 11:04 | Outpatient (BNVA) | payer OTHER, SELFPAY | PROVIDERS: PCP Internal Medicine; Visit Provider Internal Medicine | DX: Z86.718 Personal history of other venous thrombosis and embolism (principal); Z79.01 Long term (current) use of anticoagulants; Z51.81 Encounter for therapeutic drug level monitoring | CPT/HCPCS: 85610; 99211 ==

== ENCOUNTER → 2022-06-13 11:24 | Outpatient (BNVA) | payer OTHER, SELFPAY | PROVIDERS: PCP Internal Medicine; Visit Provider Internal Medicine | DX: Z79.01 Long term (current) use of anticoagulants (principal) ==

== ENCOUNTER → 2022-06-14 16:06 | Outpatient (BNVA) | payer OTHER, SELFPAY | PROVIDERS: PCP Internal Medicine; Visit Provider Internal Medicine | DX: Z79.01 Long term (current) use of anticoagulants (principal) ==

== ENCOUNTER 2022-06-16 09:00 | Outpatient (REF) | payer OTHER, SELFPAY ==
--- NOTE | ~2022-06-16 | XR_ITS ---
EXAMINATION: XR CHEST CLINICAL INFORMATION: Cough. COMPARISON: None TECHNIQUE: 2 views of the chest were obtained. FINDINGS: No significant abnormality is noted involving the heart, lungs, mediastinum, bony thorax or soft tissues. XR/XR chest 2V IMPRESSION: Unremarkable chest examination.
[2022-06-16 11:21] LABS: MANUAL DIFF FLAG NO
[2022-06-16 11:37] LABS: Basophils Percent Auto 0.2 % (0-2); Eosinophils Absolute Auto 0.1 X10*3/uL (0.0-0.4); Eosinophils Percent Auto 2.2 % (0-4); Hematocrit 45.2 % (37.0-47.0); Lymphocytes Absolute Auto 1.5 X10*3/uL (1.2-4.9); Lymphocytes Percent Auto 28.8 % (20-40); Mean Corpuscular HGB Conc 33.2 g/dl (31.0-35.0); Mean Corpuscular Hemoglobin 27.8 pg (27.0-33.0); Mean Corpuscular Volume 83.7 fL (80.0-98.0); Mean Platelet Volume 12.8 fL (9.4-12.3); Monocytes Absolute Auto 0.7 X10*3/uL (0.1-1.2); Monocytes Percent Auto 12.7 % (2-11); Neutrophils Absolute Auto 2.9 x10*3/uL (2.0-8.3); Neutrophils Percent Auto 56.1 % (45-73); Platelet Count 200 X10*3/uL (160-400); Red Cell Distribution Width 13.6 % (11.0-16.0); White Blood Count 5.1 X10*3/uL (4.8-10.8)
[2022-06-16 11:44] LABS: INTERNATIONAL NORM RATIO 1.4 (0.9-1.1)
[2022-06-16 12:09] LABS: Alanine Aminotransferase 37 U/L (0-31); Albumin Level 3.9 g/dL (3.5-5.0); Alkaline Phosphatase 83 U/L (39-117); Anion Gap 12 (12-20); Aspartate Amino Transferase 45 U/L (5-31); Bilirubin Total 0.9 mg/dL (0.0-1.0); Blood Urea Nitrogen 20 mg/dL (9-16); Calcium 8.7 mg/dL (8.4-10.2); Carbon Dioxide 26 mmol/L (22-29); Chloride 103 mmol/L (96-108); Estimated Glomerular Filt Rate 49; Glucose Random 101 mg/dL (60-115); Potassium 3.3 mmol/L (3.3-5.1); Sodium 138 mmol/L (135-145); Total Protein 6.6 g/dL (6.5-8.0)
[2022-06-16 12:47] LABS: Influenza A PCR POSITIVE (Negative); Influenza B PCR NEGATIVE (Negative); Resp Syncy Virus RNA Qual PCR NEGATIVE (Negative); SARS COV2 PCR INHOUSE NEGATIVE (Negative)
== END 2022-06-16 09:01 | disposition home or self-care (01) ==
LOC: HO.HMGCX 09:00
PROVIDERS: PCP Internal Medicine; Visit Provider Internal Medicine
DX: R05.9 Cough, unspecified (principal); R50.9 Fever, unspecified; R11.2 Nausea with vomiting, unspecified; R53.83 Other fatigue; R09.89 Other specified symptoms and signs involving the circulatory and respiratory systems; Z20.822 Contact with and (suspected) exposure to COVID-19; Z86.718 Personal history of other venous thrombosis and embolism; Z51.81 Encounter for therapeutic drug level monitoring; Z79.01 Long term (current) use of anticoagulants
CPT/HCPCS: 0241U; 36415; 71046; 80053; 85025; 85610; 99211

== ENCOUNTER → 2022-06-20 11:24 | Outpatient (BNVA) | payer OTHER, SELFPAY | PROVIDERS: PCP Internal Medicine; Visit Provider Internal Medicine | DX: Z86.718 Personal history of other venous thrombosis and embolism (principal); Z79.01 Long term (current) use of anticoagulants; Z51.81 Encounter for therapeutic drug level monitoring | CPT/HCPCS: 85610; 99211 ==

== ENCOUNTER → 2022-06-27 11:33 | Outpatient (BNVA) | payer OTHER, SELFPAY | PROVIDERS: PCP Internal Medicine; Visit Provider Internal Medicine | DX: Z86.718 Personal history of other venous thrombosis and embolism (principal); Z79.01 Long term (current) use of anticoagulants; Z51.81 Encounter for therapeutic drug level monitoring | CPT/HCPCS: 85610; 99211 ==

== ENCOUNTER → 2022-07-08 10:56 | Outpatient (BNVA) | payer OTHER, SELFPAY | PROVIDERS: PCP Internal Medicine; Visit Provider Internal Medicine | DX: Z86.718 Personal history of other venous thrombosis and embolism (principal); Z79.01 Long term (current) use of anticoagulants; Z51.81 Encounter for therapeutic drug level monitoring | CPT/HCPCS: 85610; 99211 ==

== ENCOUNTER → 2022-07-22 11:17 | Outpatient (BNVA) | payer OTHER, SELFPAY | PROVIDERS: PCP Internal Medicine; Visit Provider Internal Medicine | DX: Z86.718 Personal history of other venous thrombosis and embolism (principal); Z79.01 Long term (current) use of anticoagulants; Z51.81 Encounter for therapeutic drug level monitoring | CPT/HCPCS: 85610; 99211 ==

== ENCOUNTER → 2022-08-08 11:21 | Outpatient (BNVA) | payer OTHER, SELFPAY | PROVIDERS: PCP Internal Medicine; Visit Provider Internal Medicine | DX: Z86.718 Personal history of other venous thrombosis and embolism (principal); Z79.01 Long term (current) use of anticoagulants; Z51.81 Encounter for therapeutic drug level monitoring | CPT/HCPCS: 85610; 99211 ==

== ENCOUNTER 2022-08-12 11:39 | Outpatient (REF) | payer OTHER, SELFPAY ==
--- NOTE | ~2022-08-12 | XR_ITS ---
EXAMINATION: XR FOOT, RIGHT CLINICAL INFORMATION: Right foot contusion. COMPARISON: None available. TECHNIQUE: AP, lateral, and oblique views of the right foot. FINDINGS: No acute fracture or dislocation. The tarsal bones are normally aligned. There is a small plantar calcaneal spur. Mild calcification is seen proximally in the plantar facia. The soft tissues are unremarkable. XR/XR foot RT min 3V IMPRESSION: 1. No acute fracture. 2. Small plantar calcaneal spur. 3. Mild calcification in the plantar facia is nonspecific, but could be degenerative in nature.
--- NOTE | ~2022-08-12 | XR_ITS ---
EXAMINATION: XR FOOT, LEFT CLINICAL INFORMATION: Left foot pain. COMPARISON: None available. TECHNIQUE: AP, lateral, and oblique views of the left foot. FINDINGS: There is no acute fracture or dislocation. The bony pelvis is intact. Moderate sized plantar calcaneal spur. Mild calcifications proximally in the plantar fascia. Mild soft tissue swelling. XR/XR foot LT min 3V IMPRESSION: 1. Mild soft tissue swelling without acute underlying osseous abnormality. 2. Moderate plantar calcaneal spur. 3. Mild calcifications proximally in the plantar fascia.
[2022-08-12 14:05] LABS: Alanine Aminotransferase 22 U/L (0-31); Alkaline Phosphatase 81 U/L (39-117); Anion Gap 12 (12-20); Aspartate Amino Transferase 25 U/L (5-31); Bilirubin Total 0.9 mg/dL (0.0-1.0); Blood Urea Nitrogen 16 mg/dL (9-16); Calcium 9.7 mg/dL (8.4-10.2); Carbon Dioxide 30 mmol/L (22-29); Chloride 104 mmol/L (96-108); Estimated Glomerular Filt Rate 52; Glucose Random 111 mg/dL (60-115); Potassium 4.5 mmol/L (3.3-5.1); Sodium 141 mmol/L (135-145); Total Protein 6.8 g/dL (6.5-8.0)
[2022-08-12 14:13] LABS: Estimated Average Glucose 140 mg/dL; Hemoglobin A1c % 6.5 %
== END 2022-08-12 11:40 | disposition home or self-care (01) ==
LOC: HO.HMGCX 11:39
PROVIDERS: Absent Provider Internal Medicine; PCP Internal Medicine; Visit Provider Internal Medicine
DX: E11.21 Type 2 diabetes mellitus with diabetic nephropathy (principal); S90.32XA Contusion of left foot, initial encounter; S90.31XA Contusion of right foot, initial encounter
CPT/HCPCS: 36415; 73630; 80053; 83036

== ENCOUNTER → 2022-08-25 10:57 | Outpatient (BNVA) | payer OTHER, SELFPAY | PROVIDERS: PCP Internal Medicine; Visit Provider Internal Medicine | DX: Z86.718 Personal history of other venous thrombosis and embolism (principal); Z51.81 Encounter for therapeutic drug level monitoring; Z79.01 Long term (current) use of anticoagulants | CPT/HCPCS: 85610; 99211 ==

== ENCOUNTER 2022-09-12 12:14 | Outpatient (REF) | payer OTHER, SELFPAY ==
--- NOTE | ~2022-09-12 | MM_ITS ---
EXAMINATION: MM SCREENING DIGITAL BREAST TOMOSYNTHESIS, BILATERAL CLINICAL INFORMATION: Screening. Asymptomatic. Family history breast cancer, sister. The lifetime risk of breast cancer based on the Tyrer-Cuzick Model is 7%. COMPARISON: Mammography: 08/25/2021, 09/08/2020, 06/17/2019, 05/02/2018; right breast ultrasound 08/25/2021. TECHNIQUE: Digital breast tomosynthesis is performed in both the craniocaudal and mediolateral oblique views along with computer-aided detection (CAD). Synthesized 2D images are generated from the tomosynthesis. FINDINGS: There are scattered areas of fibroglandular density (ACR BI-RADS breast composition Category b). There are no significant masses, abnormal calcifications, or other abnormalities. No architectural abnormality or developing density. There are scattered bilateral predominantly vascular and some punctate round calcifications again seen. Left breast has biopsy clip marker central mid upper outer quadrant. The axilla and skin contours are unremarkable. MM/MM tomosynthesis screening BI IMPRESSION: No mammographic evidence of malignancy. ASSESSMENT: BI-RADS 2: Benign RECOMMENDATION: Routine annual mammography screening. This patient's information was entered into a reminder system with a target due date for their next mammogram.
== END 2022-09-12 12:15 | disposition home or self-care (01) ==
LOC: HO.MAMMO 12:14
PROVIDERS: PCP Internal Medicine; Visit Provider Internal Medicine
DX: Z12.31 Encounter for screening mammogram for malignant neoplasm of breast (principal)
CPT/HCPCS: 77063; 77067

== ENCOUNTER → 2022-09-15 11:17 | Outpatient (BNVA) | payer OTHER, SELFPAY | PROVIDERS: PCP Internal Medicine; Visit Provider Internal Medicine | DX: Z86.718 Personal history of other venous thrombosis and embolism (principal); Z79.01 Long term (current) use of anticoagulants; Z51.81 Encounter for therapeutic drug level monitoring | CPT/HCPCS: 85610; 99211 ==

== ENCOUNTER → 2022-10-06 11:45 | Outpatient (BNVA) | payer OTHER, SELFPAY | PROVIDERS: PCP Internal Medicine; Visit Provider Internal Medicine | DX: Z86.718 Personal history of other venous thrombosis and embolism (principal); Z79.01 Long term (current) use of anticoagulants; Z51.81 Encounter for therapeutic drug level monitoring | CPT/HCPCS: 85610; 99211 ==

== ENCOUNTER → 2022-10-27 11:13 | Outpatient (BNVA) | payer MEDICARE, MEDICAID, SELFPAY | PROVIDERS: PCP Internal Medicine; Visit Provider Internal Medicine | DX: Z86.718 Personal history of other venous thrombosis and embolism (principal); Z79.01 Long term (current) use of anticoagulants; Z51.81 Encounter for therapeutic drug level monitoring | CPT/HCPCS: 85610; 99211 ==

== ENCOUNTER → 2022-11-03 11:16 | Outpatient (BNVA) | payer MEDICARE, MEDICAID, SELFPAY | PROVIDERS: PCP Internal Medicine; Visit Provider Internal Medicine | DX: Z86.718 Personal history of other venous thrombosis and embolism (principal); Z79.01 Long term (current) use of anticoagulants; Z51.81 Encounter for therapeutic drug level monitoring | CPT/HCPCS: 85610; 99211 ==

== ENCOUNTER → 2022-11-08 11:30 | Outpatient (BNVA) | payer MEDICARE, MEDICAID, SELFPAY | PROVIDERS: PCP Internal Medicine; Visit Provider Internal Medicine | DX: Z86.718 Personal history of other venous thrombosis and embolism (principal); Z51.81 Encounter for therapeutic drug level monitoring; Z79.01 Long term (current) use of anticoagulants | CPT/HCPCS: 85610; 99212 ==

== ENCOUNTER → 2022-11-16 11:24 | Outpatient (BNVA) | payer MEDICARE, SELFPAY | PROVIDERS: PCP Internal Medicine; Visit Provider Internal Medicine | DX: Z86.718 Personal history of other venous thrombosis and embolism (principal); Z79.01 Long term (current) use of anticoagulants; Z51.81 Encounter for therapeutic drug level monitoring | CPT/HCPCS: 85610; 99211 ==

== ENCOUNTER 2022-11-23 11:18 | Outpatient (AMB) | payer MEDICARE, SELFPAY ==
[2022-11-23 11:30] LABS: Prothrombin Time Whole Bld POC 23.6 sec (11.1-13.5)
--- NOTE | 2022-11-23 11:35 | MHC.OFFVISCO ---
Intake Intake Visit Reasons: Anticoagulation Allergies medroxyprogesterone [Provera] Allergy (Intermediate, Verified 11/23/22 11:25) SKIN PEELING niacin [From NIASPAN EXTENDED-RELEASE] Allergy (Intermediate, Verified 11/23/22 11:25) facial flushing atorvastatin [From Lipitor] Allergy (Mild, Verified 11/23/22 11:25) MUSCLE ACHES, myalgia gemfibrozil [From Lopid] Allergy (Mild, Verified 11/23/22 11:25) MUSCLE ACHES fluconazole [From DIFLUCAN] Allergy (Unknown, Verified 11/23/22 11:25) PER H&P nitroglycerin [From Nitro-Dur] Adverse Reaction (Mild, Verified 11/23/22 11:25) LOW BLOOD PRESSURE Medication List - Last Reconciled 11/23/22 by Amee Quintero RN albuterol sulfate 90 mcg/actuation 2 puffs PO Q6H PRN 30 days amoxicillin 2,000 mg PO ONCE blood sugar diagnostic (FreeStyle Lite Strips) Use to check blood sugars twice daily citalopram 20 mg PO DAILY 90 days FreeStyle Lite Meter (blood-glucose meter) As directed NS hydrochlorothiazide 12.5 mg PO DAILY insulin glargine (Lantus Solostar U-100 Insulin) 75 units (0.75 mL) subcut BID 90 days lancets (BD Ultra Fine Lancets) Use to check blood sugar twice daily lisinopril 20 mg PO DAILY 90 days metformin 1,000 mg PO BID 90 days omeprazole 20 mg PO ONCE 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, 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 [place]) BID PRN warfarin 10 mg See Protocol PO DAILY Nursing Note NO CP,SOB,DIET/MED CHANGES,FALLS OR SX OF BLEEDING. WILL CONTINUE PRESENT DOSE AND FOLLOW-UP IN 1 WEEK GOOD UNDERSTANDFING OF DOSING INSTR. Anti-Coag Initial Assessment Social Hx Patient Tobacco Use Status: Former Tobacco user Tobacco use type: Cigarette alcohol intake: former Alcohol intake frequency: holidays/special occasions only Coding Level of Care Code Est Patient Level 1 Diagnoses Current use of anticoagulant therapy Z79.01 Assessment & Plan Assessment & Plan (1) Current use of anticoagulant therapy: Code(s): Z79.01 - long-term (current) use of 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
== END 2022-11-23 11:37 | disposition home or self-care (01) ==
LOC: HO.ACS 11:18
PROVIDERS: PCP Internal Medicine; Visit Provider Internal Medicine
DX: Z79.01 Long term (current) use of anticoagulants (principal)

== ENCOUNTER → 2022-11-23 11:18 | Outpatient (BNVA) | payer MEDICARE, SELFPAY | PROVIDERS: PCP Internal Medicine; Visit Provider Internal Medicine | DX: Z86.718 Personal history of other venous thrombosis and embolism (principal); Z79.01 Long term (current) use of anticoagulants; Z51.81 Encounter for therapeutic drug level monitoring | CPT/HCPCS: 85610; 99211 ==

== ENCOUNTER 2022-11-30 11:24 | Outpatient (AMB) | payer MEDICARE, SELFPAY ==
--- NOTE | 2022-11-30 11:32 | MHC.OFFVISCO ---
Intake Intake Visit Reasons: Anticoagulation Allergies medroxyprogesterone [Provera] Allergy (Intermediate, Verified 11/30/22 11:27) SKIN PEELING niacin [From NIASPAN EXTENDED-RELEASE] Allergy (Intermediate, Verified 11/30/22 11:27) facial flushing atorvastatin [From Lipitor] Allergy (Mild, Verified 11/30/22 11:27) MUSCLE ACHES, myalgia gemfibrozil [From Lopid] Allergy (Mild, Verified 11/30/22 11:27) MUSCLE ACHES fluconazole [From DIFLUCAN] Allergy (Unknown, Verified 11/30/22 11:27) PER H&P nitroglycerin [From Nitro-Dur] Adverse Reaction (Mild, Verified 11/30/22 11:27) LOW BLOOD PRESSURE Medication List - Last Reconciled 11/30/22 by Shruthi Quinones RN albuterol sulfate 90 mcg/actuation 2 puffs PO Q6H PRN 30 days amoxicillin 2,000 mg PO ONCE blood sugar diagnostic (FreeStyle Lite Strips) Use to check blood sugars twice daily citalopram 20 mg PO DAILY 90 days FreeStyle Lite Meter (blood-glucose meter) As directed NS hydrochlorothiazide 12.5 mg PO DAILY insulin glargine (Lantus Solostar U-100 Insulin) 75 units (0.75 mL) subcut BID 90 days lancets (BD Ultra Fine Lancets) Use to check blood sugar twice daily lisinopril 20 mg PO DAILY 90 days metformin 1,000 mg PO BID 90 days omeprazole 20 mg PO ONCE 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 Bleeding, bruising, clotting discussed Nutritional guidance given Dose: 15mg x 2, 10mg x 5 F/U INR: 10 days Patient verbalizes understanding of instructions given pt amb with cane today, c.o vertigo- states blood sugar this am 88, enc to f/u with pcp Anti-Coag Initial Assessment Social Hx Patient Tobacco Use Status: Former Tobacco user Tobacco use type: Cigarette alcohol intake: former Alcohol intake frequency: holidays/special occasions only Coding Level of Care Code Est Patient Level 1 Diagnoses Current use of anticoagulant therapy Z79.01 Assessment & Plan Assessment & Plan (1) Current use of anticoagulant therapy: Code(s): Z79.01 - alf (current) use of 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
[2022-11-30 11:33] LABS: Prothrombin Time Whole Bld POC 30.4 sec (11.1-13.5); ~PT, ~INR - Anti Coag Clinic 2.5 (0.9-1.1)
== END 2022-11-30 13:01 | disposition home or self-care (01) ==
LOC: HO.ACS 11:24
PROVIDERS: PCP Internal Medicine; Visit Provider Internal Medicine
DX: Z79.01 Long term (current) use of anticoagulants (principal)

== ENCOUNTER → 2022-11-30 11:24 | Outpatient (BNVA) | payer MEDICARE, SELFPAY | PROVIDERS: PCP Internal Medicine; Visit Provider Internal Medicine | DX: Z86.718 Personal history of other venous thrombosis and embolism (principal); Z79.01 Long term (current) use of anticoagulants; Z51.81 Encounter for therapeutic drug level monitoring | CPT/HCPCS: 85610; 99211 ==

== ENCOUNTER 2022-12-09 13:30 | Outpatient (AMB) | payer MEDICARE, SELFPAY ==
[2022-12-09 13:41] LABS: ~PT, ~INR - Anti Coag Clinic 2.8 (0.9-1.1)
--- NOTE | 2022-12-09 13:45 | MHC.OFFVISCO ---
Intake Intake Visit Reasons: Anticoagulation Allergies medroxyprogesterone [Provera] Allergy (Intermediate, Verified 12/09/22 13:35) SKIN PEELING niacin [From NIASPAN EXTENDED-RELEASE] Allergy (Intermediate, Verified 12/09/22 13:35) facial flushing atorvastatin [From Lipitor] Allergy (Mild, Verified 12/09/22 13:35) MUSCLE ACHES, myalgia gemfibrozil [From Lopid] Allergy (Mild, Verified 12/09/22 13:35) MUSCLE ACHES fluconazole [From DIFLUCAN] Allergy (Unknown, Verified 12/09/22 13:35) PER H&P nitroglycerin [From Nitro-Dur] Adverse Reaction (Mild, Verified 12/09/22 13:35) LOW BLOOD PRESSURE Medication List - Last Reconciled 12/09/22 by Bernadette Hutchinson RN albuterol sulfate 90 mcg/actuation 2 puffs PO Q6H PRN 30 days amoxicillin 2,000 mg PO ONCE blood sugar diagnostic (FreeStyle Lite Strips) Use to check blood sugars twice daily citalopram 20 mg PO DAILY 90 days FreeStyle Lite Meter (blood-glucose meter) As directed NS hydrochlorothiazide 12.5 mg PO DAILY insulin glargine (Lantus Solostar U-100 Insulin) 75 units (0.75 mL) subcut BID 90 days lancets (BD Ultra Fine Lancets) Use to check blood sugar twice daily lisinopril 20 mg PO DAILY 90 days metformin 1,000 mg PO BID 90 days omeprazole 20 mg PO ONCE 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, 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 [place]) BID PRN warfarin 10 mg See Protocol PO DAILY Nursing Note Amb to ACS feeling well, sts no vertigo now Medications and supplements reviewed No changes in health, diet, medications, or supplements Denies any unusual signs and symptoms of bruising, bleeding Denies any new Chest pain, SOB, or clotting INR: 2.8 in therapeutic range Nutritional guidance given: ok for greens today then balance greens and reds in diet Dose: continue usual dosing; 15mg x 2 days and 10mg x 5 days F/U INR: 10 days Patient verbalizes understanding of instructions given with accurate read back/ teach back of dosing Anti-Coag Initial Assessment Social Hx Patient Tobacco Use Status: Former Tobacco user Tobacco use type: Cigarette alcohol intake: former Alcohol intake frequency: holidays/special occasions only Coding Level of Care Code Est Patient Level 1 Diagnoses Current use of anticoagulant therapy Z79.01 Time Spent (min) 15 Assessment & Plan Assessment & Plan (1) Current use of anticoagulant therapy: Code(s): Z79.01 - 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
== END 2022-12-09 15:42 | disposition home or self-care (01) ==
LOC: HO.ACS 13:30
PROVIDERS: PCP Internal Medicine; Visit Provider Internal Medicine
DX: Z79.01 Long term (current) use of anticoagulants (principal)

== ENCOUNTER → 2022-12-09 13:30 | Outpatient (BNVA) | payer MEDICARE, SELFPAY | PROVIDERS: PCP Internal Medicine; Visit Provider Internal Medicine | DX: Z86.718 Personal history of other venous thrombosis and embolism (principal); Z79.01 Long term (current) use of anticoagulants; Z51.81 Encounter for therapeutic drug level monitoring | CPT/HCPCS: 85610; 99211 ==

== ENCOUNTER 2022-12-20 13:34 | Outpatient (AMB) | payer MEDICARE, SELFPAY ==
--- NOTE | 2022-12-20 13:47 | MHC.OFFVISCO ---
Intake Intake Visit Reasons: Anticoagulation Allergies medroxyprogesterone [Provera] Allergy (Intermediate, Verified 12/20/22 13:43) SKIN PEELING niacin [From NIASPAN EXTENDED-RELEASE] Allergy (Intermediate, Verified 12/20/22 13:43) facial flushing atorvastatin [From Lipitor] Allergy (Mild, Verified 12/20/22 13:43) MUSCLE ACHES, myalgia gemfibrozil [From Lopid] Allergy (Mild, Verified 12/20/22 13:43) MUSCLE ACHES fluconazole [From DIFLUCAN] Allergy (Unknown, Verified 12/20/22 13:43) PER H&P nitroglycerin [From Nitro-Dur] Adverse Reaction (Mild, Verified 12/20/22 13:43) LOW BLOOD PRESSURE Medication List - Last Reconciled 12/20/22 by Shruthi Quinones RN albuterol sulfate 90 mcg/actuation 2 puffs PO Q6H PRN 30 days amoxicillin 2,000 mg PO ONCE blood sugar diagnostic (FreeStyle Lite Strips) Use to check blood sugars twice daily citalopram 20 mg PO DAILY 90 days FreeStyle Lite Meter (blood-glucose meter) As directed NS hydrochlorothiazide 12.5 mg PO DAILY insulin glargine (Lantus Solostar U-100 Insulin) 75 units (0.75 mL) subcut BID 90 days lancets (BD Ultra Fine Lancets) Use to check blood sugar twice daily lisinopril 20 mg PO DAILY 90 days metformin 1,000 mg PO BID 90 days omeprazole 20 mg PO ONCE 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 Bleeding, bruising, clotting discussed Nutritional guidance given Dose: 15mg x 2, 10mg x 5 F/U INR: 2 weeks Patient verbalizes understanding of instructions given Anti-Coag Initial Assessment Social Hx Patient Tobacco Use Status: Former Tobacco user Tobacco use type: Cigarette alcohol intake: former Alcohol intake frequency: holidays/special occasions only Coding Level of Care Code Est Patient Level 1 Diagnoses Current use of anticoagulant therapy Z79.01 Assessment & Plan Assessment & Plan (1) Current use of anticoagulant therapy: Code(s): Z79.01 - detention (current) use of 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
[2022-12-20 13:48] LABS: Prothrombin Time Whole Bld POC 28.1 sec (11.1-13.5); ~PT, ~INR - Anti Coag Clinic 2.3 (0.9-1.1)
== END 2022-12-20 13:52 | disposition home or self-care (01) ==
LOC: HO.ACS 13:34
PROVIDERS: PCP Internal Medicine; Visit Provider Internal Medicine
DX: Z79.01 Long term (current) use of anticoagulants (principal)

== ENCOUNTER → 2022-12-20 13:34 | Outpatient (BNVA) | payer MEDICARE, SELFPAY | PROVIDERS: PCP Internal Medicine; Visit Provider Internal Medicine | DX: Z86.718 Personal history of other venous thrombosis and embolism (principal); Z79.01 Long term (current) use of anticoagulants; Z51.81 Encounter for therapeutic drug level monitoring | CPT/HCPCS: 85610; 99211 ==

== ENCOUNTER 2022-12-28 11:43 | Outpatient (REF) | payer MEDICARE, SELFPAY ==
[2022-12-28 13:03] LABS: MANUAL DIFF FLAG NO
[2022-12-28 13:22] LABS: Basophils Percent Auto 0.5 % (0-2); Eosinophils Absolute Auto 0.2 X10*3/uL (0.0-0.4); Eosinophils Percent Auto 2.6 % (0-4); Hematocrit 43.4 % (37.0-47.0); Hemoglobin 14.5 g/dl (12.0-16.0); Imm Gran Abs Auto 0.02 X10*3/uL (0.00-0.03); Imm Gran Pct Auto 0.3 % (0.0-0.4); Lymphocytes Absolute Auto 1.4 X10*3/uL (1.2-4.9); Lymphocytes Percent Auto 24.3 % (20-40); Mean Corpuscular HGB Conc 33.4 g/dl (31.0-35.0); Mean Corpuscular Hemoglobin 28.5 pg (27.0-33.0); Mean Corpuscular Volume 85.4 fL (80.0-98.0); Mean Platelet Volume 12.5 fL (9.4-12.3); Monocytes Absolute Auto 0.6 X10*3/uL (0.1-1.2); Monocytes Percent Auto 9.9 % (2-11); Neutrophils Absolute Auto 3.7 x10*3/uL (2.0-8.3); Neutrophils Percent Auto 62.4 % (45-73); Platelet Count 208 X10*3/uL (160-400); Red Blood Count 5.08 X10*6/uL (4.20-5.50); Red Cell Distribution Width 13.5 % (11.0-16.0); White Blood Count 5.9 X10*3/uL (4.8-10.8)
[2022-12-28 13:30] LABS: Estimated Average Glucose 120 mg/dL; Hemoglobin A1C 150.9719 umol/L; Hemoglobin A1c % 5.8 %
[2022-12-28 13:31] LABS: D Dimer High Sensitivity < 150 NG/ML
[2022-12-28 13:42] LABS: Alanine Aminotransferase 27 U/L (0-31); Albumin Level 3.9 g/dL (3.5-5.0); Alkaline Phosphatase 89 U/L (39-117); Anion Gap 12 (12-20); Aspartate Amino Transferase 29 U/L (5-31); Bilirubin Total 0.7 mg/dL (0.0-1.0); Blood Urea Nitrogen 17 mg/dL (9-16); Calcium 9.2 mg/dL (8.4-10.2); Carbon Dioxide 27 mmol/L (22-29); Chloride 105 mmol/L (96-108); Estimated Glomerular Filt Rate 51; Glucose Random 160 mg/dL (60-115); Potassium 4.2 mmol/L (3.3-5.1); Sodium 140 mmol/L (135-145); Total Protein 7.1 g/dL (6.5-8.0)
== END 2022-12-28 11:44 | disposition home or self-care (01) ==
LOC: HO.HMGCLDS 11:43
PROVIDERS: Absent Provider Internal Medicine; PCP Internal Medicine; Visit Provider Internal Medicine Medical Oncology
DX: I82.409 Acute embolism and thrombosis of unspecified deep veins of unspecified lower extremity (principal); I10 Essential (primary) hypertension; F41.9 Anxiety disorder, unspecified; F32.9 Major depressive disorder, single episode, unspecified; N18.2 Chronic kidney disease, stage 2 (mild); E13.9 Other specified diabetes mellitus without complications; Z79.4 Long term (current) use of insulin; K21.9 Gastro-esophageal reflux disease without esophagitis; E11.21 Type 2 diabetes mellitus with diabetic nephropathy
CPT/HCPCS: 36415; 80053; 83036; 85025; 85379

== ENCOUNTER 2023-01-03 10:51 | Outpatient (AMB) | payer MEDICARE, SELFPAY ==
[2023-01-03 11:00] LABS: Prothrombin Time Whole Bld POC 26.4 sec (11.1-13.5); ~PT, ~INR - Anti Coag Clinic 2.2 (0.9-1.1)
--- NOTE | 2023-01-03 11:07 | MHC.OFFVISCO ---
Intake Intake Visit Reasons: Anticoagulation Allergies medroxyprogesterone [Provera] Allergy (Intermediate, Verified 01/03/23 10:55) SKIN PEELING niacin [From NIASPAN EXTENDED-RELEASE] Allergy (Intermediate, Verified 01/03/23 10:55) facial flushing atorvastatin [From Lipitor] Allergy (Mild, Verified 01/03/23 10:55) MUSCLE ACHES, myalgia gemfibrozil [From Lopid] Allergy (Mild, Verified 01/03/23 10:55) MUSCLE ACHES fluconazole [From DIFLUCAN] Allergy (Unknown, Verified 01/03/23 10:55) PER H&P nitroglycerin [From Nitro-Dur] Adverse Reaction (Mild, Verified 01/03/23 10:55) LOW BLOOD PRESSURE Medication List - Last Reconciled 01/03/23 by Amee Quintero RN albuterol sulfate 90 mcg/actuation 2 puffs PO Q6H PRN 30 days amoxicillin 2,000 mg PO ONCE blood sugar diagnostic (FreeStyle Lite Strips) Use to check blood sugars twice daily citalopram 20 mg PO DAILY 90 days FreeStyle Lite Meter (blood-glucose meter) As directed NS hydrochlorothiazide 12.5 mg PO DAILY insulin glargine (Lantus Solostar U-100 Insulin) 75 units (0.75 mL) subcut BID 90 days lancets (BD Ultra Fine Lancets) Use to check blood sugar twice daily lisinopril 20 mg PO DAILY 90 days metformin 1,000 mg PO BID 90 days omeprazole 20 mg PO ONCE 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 CONTINUE PRESENT DOSE AND FOLLOW-UP IN 3 WEEKS. GOOD UNDERSTANDING OF DOSING INSTR. 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
== END 2023-01-03 11:08 | disposition home or self-care (01) ==
LOC: HO.ACS 10:51
PROVIDERS: PCP Internal Medicine; Visit Provider Internal Medicine
DX: Z79.01 Long term (current) use of anticoagulants (principal)

== ENCOUNTER → 2023-01-03 10:51 | Outpatient (BNVA) | payer MEDICARE, SELFPAY | PROVIDERS: PCP Internal Medicine; Visit Provider Internal Medicine | DX: Z86.718 Personal history of other venous thrombosis and embolism (principal); Z79.01 Long term (current) use of anticoagulants; Z51.81 Encounter for therapeutic drug level monitoring | CPT/HCPCS: 85610; 99211 ==

== ENCOUNTER 2023-01-06 12:37 | Outpatient (AMB) | payer MEDICARE, SELFPAY ==
--- NOTE | 2023-01-06 12:39 | MHC.PC.OV ---
Vital Signs 01/06/23 12:40 Height 5 ft 7 in Weight 290 lb BMI 45.4 BP 120/70 Blood Pressure Location Lt brachial Position Sitting Pulse 70 Pulse Source Pulse Oximeter Pulse Oximetry (%) 98 Oxygen Delivery Method Room Air Intake Visit Reasons: Dec Follow up Intake Note: Pt is here today for a follow up visit. Allergies medroxyprogesterone [Provera] Allergy (Intermediate, Verified 01/06/23 12:42) SKIN PEELING niacin [From NIASPAN EXTENDED-RELEASE] Allergy (Intermediate, Verified 01/06/23 12:42) facial flushing atorvastatin [From Lipitor] Allergy (Mild, Verified 01/06/23 12:42) MUSCLE ACHES, myalgia gemfibrozil [From Lopid] Allergy (Mild, Verified 01/06/23 12:42) MUSCLE ACHES fluconazole [From DIFLUCAN] Allergy (Unknown, Verified 01/06/23 12:42) PER H&P nitroglycerin [From Nitro-Dur] Adverse Reaction (Mild, Verified 01/06/23 12:42) LOW BLOOD PRESSURE Medication List - Last Reconciled 01/06/23 by Ricco Hill MD albuterol sulfate 90 mcg/actuation 2 puffs PO Q6H PRN 30 days amoxicillin 2,000 mg PO ONCE blood sugar diagnostic (FreeStyle Lite Strips) Use to check blood sugars twice daily citalopram 20 mg PO DAILY 90 days FreeStyle Lite Meter (blood-glucose meter) As directed NS hydrochlorothiazide 12.5 mg PO DAILY insulin glargine (Lantus Solostar U-100 Insulin) 75 units (0.75 mL) subcut BID 90 days lancets (BD Ultra Fine Lancets) Use to check blood sugar twice daily lisinopril 20 mg PO DAILY 90 days metformin 1,000 mg PO BID 90 days omeprazole 20 mg PO ONCE 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, 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 [place]) BID PRN warfarin 10 mg See Protocol PO DAILY Tobacco use date assessed: 01/06/23 Fall risk assessment: 1 Fall in past year Last assessed Fall Risk: 01/06/23 Dental Screening Dental Screen Date: 01/06/23 Did you have a dental visit in the last 12 months?: Yes Did you have a dental problem in the last 6 months where you did not have access to dental care?: No Was dental information given to patient?: Patient has dentist HPI Aug Follow up HPI Details Patient is 67-year-old female came in today for her regular follow-up appointment Labs done recently reviewed with the patient Insulin dependent diabetes mellitus:? Patient is currently on Lantus 75 units b.i.d. her hemoglobin A1c is stable at 5.8% Patient says that couple of time she had low sugar so she cut done Lantus to 60 units and metformin to 500 mg from 1 g b.i.d. Kidney function liver functions within normal limit allergies stable with generic Zyrtec, depression anxiety:? Patient is on? citalopram 20 mg, and is doing well blood pressure is stable with hydrochlorothiazide 12.5 mg and lisinopril 20 mg daily GERD is stable with omeprazole b.i.d. BMI is elevated patient is trying to lose weight f/u 3 M? ? ?labs are needed before visit [facility] Medical History Diabetes 1.5, managed as type 1 Long-term insulin use Surgical History History of breast biopsy History of colonoscopy History of revision of total replacement of right knee joint History of tonsillectomy History of total left knee replacement (TKR) History of total right knee replacement (TKR) Family History Father Type 2 diabetes mellitus Polymyalgia Mother Cancer of thyroid Sister Breast cancer Sister Leukemia Brother Diabetes mellitus HTN (hypertension) High cholesterol Social History Housing: House Alcohol intake: former Patient Tobacco Use Status: Former Tobacco user Tobacco use type: Cigarette Years Smoked: 4 years e-Cigarette/Vaping Use: Never Used Current occupational status: unemployed Cognitive needs: No Hearing needs: No Vision needs: Yes Questionnaire Thrive Questionnaire Date Thrive assessed: 09/09/22 LEX-7 AMB Questionnaire LEX-7 Date LEX - 7 assessed: 09/09/22 Source: Developed by Drs. Roney Mitchell, Molly Duran, Earl Muhammad and colleagues, with an educational willem from [employer]. Review of Systems Const Denies chills and Denies fever(s) ENT Denies epistaxis and Denies nasal discharge Card Denies chest pain Resp Denies chest congestion, Denies cough and Denies hemoptysis GI Denies diarrhea and Denies nausea Skin/Breast Denies rash Neuro Reports no additional complaints Psych Reports no additional complaints Endo Reports no additional complaints Physical exam (Primary Care) Vital Signs: Last Vital Signs Pulse 70 01/06/23 12:40 BP 120/70 01/06/23 12:40 Pulse Ox 98 01/06/23 12:40 Oxygen Delivery Method Room Air 01/06/23 12:40 BMI result Body Mass Index 45.4 BMI Assessment/Plan discussion: High Tobacco/Smoking Status: Tobacco use Status Tobacco use date assessed 01/06/23 01/06/23 12:43 Patient Tobacco Use Status Former Tobacco user 01/06/23 12:43 Tobacco use type Cigarette 01/06/23 12:43 e-Cigarette/Vaping Use Never Used 01/06/23 12:43 Thrive Assessment: Date of Thrive Assessment Date Thrive assessed 09/09/22 01/06/23 12:43 Const General: cooperative, comfortable and no acute distress Orientation/consciousness: patient oriented x3 HENMT Head: Yes normocephalic Eyes General: appearance normal, both eyes and all related structures Neck Neck: Yes supple Resp Effort & Inspection: normal respiratory effort, no cough and no stridor Cardio Rhythm: regular rhythm Heart sounds: S1 normal heart sound present and S2 normal heart sound present Skin General skin exam: turgor normal Neuro General: patient oriented x3, tone normal and moves all extremities Extrem Right lower extremity: no edema Left lower extremity: no edema Assessment and Plan Assessment & Plan (1) Diabetes 1.5, managed as type 1: Code(s): E13.9 - Other specified diabetes mellitus without complications (2) Long-term insulin use: Code(s): Z79.4 - intermission coordinator (current) use of insulin (3) Hypertension, essential: Code(s): I10 - Essential (primary) hypertension (4) Anxiety and depression: Code(s): F41.9 - Anxiety disorder, unspecified; F32.9 - Major depressive disorder, single episode, unspecified (5) Chronic kidney disease, stage 2 (mild): Code(s): N18.2 - Chronic kidney disease, stage 2 (mild) (6) Chronic GERD: Code(s): K21.9 - Gastro-esophageal reflux disease without esophagitis (7) Diabetic nephropathy: Code(s): E11.21 - Type 2 diabetes mellitus with diabetic nephropathy Qualifiers: Diabetes mellitus type: due to underlying condition Qualified Code(s): E08.21 - Diabetes mellitus due to underlying condition with diabetic nephropathy (8) Morbid obesity: Code(s): E66.01 - Morbid (severe) obesity due to excess calories Plan Patient is 67-year-old female came in today for her regular follow-up appointment Labs done recently reviewed with the patient Insulin dependent diabetes mellitus:? Patient is currently on Lantus 75 units b.i.d. her hemoglobin A1c is stable at 5.8% Patient says that couple of time she had low sugar so she cut done Lantus to 60 units and metformin to 500 mg from 1 g b.i.d. Kidney function liver functions within normal limit allergies stable with generic Zyrtec, depression anxiety:? Patient is on? citalopram 20 mg, and is doing well blood pressure is stable with hydrochlorothiazide 12.5 mg and lisinopril 20 mg daily GERD is stable with omeprazole b.i.d. BMI is elevated patient is trying to lose weight f/u 3 M? ? ?labs are needed before visit Orders: Orders Comprehensive Met. Panel 3 Months E11.21 - Type 2 diabetes mellitus with diabetic nephropathy, E13.9 - Other specified diabetes mellitus without complications, E66.01 - Morbid (severe) obesity due to excess calories, F32.9 - Major depressive disorder, single episode, unspecified, F41.9 - Anxiety disorder, unspecified, I10 - Essential (primary) hypertension, K21.9 - Gastro-esophageal reflux disease without esophagitis, N18.2 - Chronic kidney disease, stage 2 (mild), Z79.4 - intermission coordinator (current) use of insulin Hemoglobin A1c 3 Months E11.21 - Type 2 diabetes mellitus with diabetic nephropathy, E13.9 - Other specified diabetes mellitus without complications, E66.01 - Morbid (severe) obesity due to excess calories, F32.9 - Major depressive disorder, single episode, unspecified, F41.9 - Anxiety disorder, unspecified, I10 - Essential (primary) hypertension, K21.9 - Gastro-esophageal reflux disease without esophagitis, N18.2 - Chronic kidney disease, stage 2 (mild), Z79.4 - retirement (current) use of insulin Medications: Refilled omeprazole 20 mg PO ONCE 90 days 90 caps 0RF K21.9 - Gastro-esophageal reflux disease without esophagitis Discontinued warfarin 10 mg See Protocol PO DAILY 90 tabs 0RF Coding Level of Care Code Est Pt Level 4 (06903) Diagnoses Diabetes 1.5, managed as type 1 E13.9 Long-term insulin use Z79.4 Hypertension, essential I10 Anxiety and depression F41.9; F32.9 Chronic kidney disease, stage 2 (mild) N18.2 Chronic GERD K21.9 Diabetic nephropathy E08.21 Diabetes mellitus type: due to underlying condition Morbid obesity E66.01
[2023-01-06 12:40] VITALS: BP 120/70; PULSE 70; O2SAT 98; BMI 45.4
== END 2023-01-06 13:58 | disposition home or self-care (01) ==
PROVIDERS: PCP Internal Medicine; Visit Provider Internal Medicine
DX: I12.9 Hypertensive chronic kidney disease with stage 1 through stage 4 chronic kidney disease, or unspecified chronic kidney disease (principal); N18.2 Chronic kidney disease, stage 2 (mild); E13.9 Other specified diabetes mellitus without complications; Z79.4 Long term (current) use of insulin; F41.9 Anxiety disorder, unspecified; F32.9 Major depressive disorder, single episode, unspecified; K21.9 Gastro-esophageal reflux disease without esophagitis; E08.21 Diabetes mellitus due to underlying condition with diabetic nephropathy; E66.01 Morbid (severe) obesity due to excess calories
CPT/HCPCS: 99214

== ENCOUNTER 2023-01-11 10:28 | Outpatient (AMB) | payer MEDICARE, SELFPAY ==
--- NOTE | 2023-01-11 10:32 | A.OFFVIS_ITS ---
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 Scribed for FERN Morales by Capri Sahu medical reimbursement manager, on 01/11/2023 at 10:50 am EST. Veterinary Virologist Required: No Information Interpreted: non-clinical & clinical Grant Specialist: Grant Specialist Present (Aidyn) Allergies medroxyprogesterone [Provera] Allergy (Intermediate, Verified 01/11/23 10:36) SKIN PEELING niacin [From NIASPAN EXTENDED-RELEASE] Allergy (Intermediate, Verified 01/11/23 10:36) facial flushing atorvastatin [From Lipitor] Allergy (Mild, Verified 01/11/23 10:36) MUSCLE ACHES, myalgia gemfibrozil [From Lopid] Allergy (Mild, Verified 01/11/23 10:36) MUSCLE ACHES fluconazole [From DIFLUCAN] Allergy (Unknown, Verified 01/11/23 10:36) PER H&P nitroglycerin [From Nitro-Dur] Adverse Reaction (Mild, Verified 01/11/23 10:36) LOW BLOOD PRESSURE Is last menstrual period known: No Post menopausal: Yes HPI HPI Comments History of Present Illness Details She is a postmenopausal woman presenting for annual exam. Doing well with no rug setter velvet concerns. She reports a rash under her breast due to ill fitting bra, she is looking for a replacement. Patient admits she tries to eat a healthy diet including Calcium and Vitamin D. She stays active with exercise. Currently not sexually active. Denies vaginal itching and irritation. Denies family hx of colon and ovarian cancer. Last pap smear 09/17/21. Last mammogram 09/12/22. Not UTD on colonoscopy. [facility] Medical History Diabetes 1.5, managed as type 1 Long-term insulin use Surgical History History of breast biopsy History of colonoscopy History of revision of total replacement of right knee joint History of tonsillectomy History of total left knee replacement (TKR) History of total right knee replacement (TKR) Family History Father Type 2 diabetes mellitus Polymyalgia Mother Cancer of thyroid Sister Breast cancer Sister Leukemia Brother Diabetes mellitus HTN (hypertension) High cholesterol Social History Housing: House Alcohol intake: former Patient Tobacco Use Status: Former Tobacco user Tobacco use type: Cigarette Years Smoked: 4 years e-Cigarette/Vaping Use: Never Used Current occupational status: unemployed Cognitive needs: No Hearing needs: No Vision needs: Yes Female Reproductive History Menstrual Age of Menarche: 12 control method: none Total pregnancies: 2 Full term: 2 Number of Living Children: 2 Date of last pap smear: 09/17/21 (negative) History of abnormal pap smear: No Date of Mammogram: 09/12/22 Physical Exam Vital Signs: Last Vital Signs BP 130/74 01/11/23 10:33 BMI result Body Mass Index 45.1 Const General: cooperative, healthy appearing, no acute distress, well developed and alert Orientation/consciousness: patient oriented x3 HEENT Head: Yes normal to inspection Eyes General: appearance normal, both eyes and all related structures Neck Neck: Yes normal visual inspection Thyroid: Thyroid normal Chest Other: bilateral rash under breast due to clothing irritation Chest palpation & inspection: normal inspection of the chest Breast/axilla inspection: normal inspection of the breasts (no puckering, di mpling, peau de orange, retraction, discharge, masses) Breast/axilla palpation: normal palpation of the breasts Resp Effort & Inspection: normal respiratory effort GI Inspection: Yes normal to inspection and Yes obesity Palpation (GI): Soft to palpation (to palpation) Rectal Exam - Female: deferred General: Yes bladder normal to inspection External Female Exam: normal external appearance and normal appearance of the urethra Speculum Exam - Vagina: normal appearance of the vagina, normal palpation and vagina atrophic Speculum Exam - Cervix: normal appearance of the cervix and normal palpation Bimanual exam- vagina & uterus: normal palpation and normal palpation Bimanual Exam- Adnexa, other: normal adnexae and no masses Skin General skin exam: no rashes or lesions noted Neuro General: patient oriented x3 Cognition (Neuro): normal cognition Extrem General: Yes normal to inspection Psych Attitude: cooperative Thought process: Normal thought process present Assessment & Plan Assessment & Plan (1) Encounter for well woman exam: Code(s): Z01.419 - Encounter for gynecological examination (general) (routine) without abnormal findings Plan: Discussed: Current recommendations for pap smears per ASCCP guidelines. Breast awareness and periodic self breast exams. Encouraged yearly mammograms. Maintaining a healthy lifestyle including a well balanced diet including Calcium and Vitamin D and routine exercise. Contact office with any PMB. All of her questions and concerns were addressed to the best of my ability. RTO in 1 year for AG. Medications: Discontinued warfarin 10 mg See Protocol PO DAILY 90 tabs 0RF Coding Level of Care Code Est Pt Prev Care >65y(53090) Diagnoses Encounter for well woman exam Z01.419
[2023-01-11 10:33] VITALS: BP 130/74; BMI 45.1
== END 2023-01-11 11:03 | disposition home or self-care (01) ==
PROVIDERS: Visit Provider Advanced Practice Midwife
DX: Z01.419 Encounter for gynecological examination (general) (routine) without abnormal findings (principal)
CPT/HCPCS: 99397

== ENCOUNTER → 2023-01-11 10:28 | Outpatient (BNVA) | payer MEDICARE, SELFPAY | PROVIDERS: Visit Provider Advanced Practice Midwife ==

== ENCOUNTER 2023-01-24 11:00 | Outpatient (AMB) | payer MEDICARE, SELFPAY ==
--- NOTE | 2023-01-24 11:11 | MHC.OFFVISCO ---
Intake Intake Visit Reasons: Anticoagulation Allergies medroxyprogesterone [Provera] Allergy (Intermediate, Verified 01/24/23 11:06) SKIN PEELING niacin [From NIASPAN EXTENDED-RELEASE] Allergy (Intermediate, Verified 01/24/23 11:06) facial flushing atorvastatin [From Lipitor] Allergy (Mild, Verified 01/24/23 11:06) MUSCLE ACHES, myalgia gemfibrozil [From Lopid] Allergy (Mild, Verified 01/24/23 11:06) MUSCLE ACHES fluconazole [From DIFLUCAN] Allergy (Unknown, Verified 01/24/23 11:06) PER H&P nitroglycerin [From Nitro-Dur] Adverse Reaction (Mild, Verified 01/11/23 10:36) LOW BLOOD PRESSURE Medication List - Last Reconciled 01/24/23 by Shruthi Quinones RN albuterol sulfate 90 mcg/actuation 2 puffs PO Q6H PRN 30 days blood sugar diagnostic (FreeStyle Lite Strips) Use to check blood sugars twice daily citalopram 20 mg PO DAILY 90 days FreeStyle Lite Meter (blood-glucose meter) As directed NS hydrochlorothiazide 12.5 mg PO DAILY insulin glargine (Lantus Solostar U-100 Insulin) 75 units (0.75 mL) subcut BID 90 days lancets (BD Ultra Fine Lancets) Use to check blood sugar twice daily lisinopril 20 mg PO DAILY 90 days omeprazole 20 mg PO 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 Bleeding, bruising, clotting discussed Nutritional guidance given Dose: 15mg x 2, 10mg x 5 F/U INR: 3 weeks Patient verbalizes understanding of instructions given pt states tendonitis and arthritis to foot Anti-Coag Initial Assessment Social Hx Patient Tobacco Use Status: Former Tobacco user Tobacco use type: Cigarette alcohol intake: former Alcohol intake frequency: holidays/special occasions only Coding Level of Care Code Est Patient Level 1 Diagnoses Current use of anticoagulant therapy Z79.01 Assessment & Plan Assessment & Plan (1) Current use of anticoagulant therapy: Code(s): Z79.01 - senior living (current) use of anticoagulants Category: Medical Medications: New metformin 500 mg PO BID Changed From insulin glargine (Lantus Solostar U-100 Insulin) 75 units (0.75 mL) subcut BID 90 days 135 mL 3RF To insulin glargine (Lantus Solostar U-100 Insulin) 60 units (0.6 mL) subcut BID 108 mL 3RF 90 days
[2023-01-24 11:12] LABS: Prothrombin Time Whole Bld POC 30.1 sec (11.1-13.5); ~PT, ~INR - Anti Coag Clinic 2.5 (0.9-1.1)
== END 2023-01-24 11:18 | disposition home or self-care (01) ==
LOC: HO.ACS 11:00
PROVIDERS: PCP Internal Medicine; Visit Provider Internal Medicine
DX: Z79.01 Long term (current) use of anticoagulants (principal)

== ENCOUNTER → 2023-01-24 11:00 | Outpatient (BNVA) | payer MEDICARE, SELFPAY | PROVIDERS: PCP Internal Medicine; Visit Provider Internal Medicine | DX: Z86.718 Personal history of other venous thrombosis and embolism (principal); Z79.01 Long term (current) use of anticoagulants; Z51.81 Encounter for therapeutic drug level monitoring | CPT/HCPCS: 85610; 99211 ==

== ENCOUNTER 2023-02-14 11:15 | Outpatient (AMB) | payer MEDICARE, SELFPAY ==
[2023-02-14 11:39] LABS: Prothrombin Time Whole Bld POC 12.4 sec (11.1-13.5)
--- NOTE | 2023-02-14 11:48 | MHC.OFFVISCO ---
Intake Intake Visit Reasons: Anticoagulation Allergies medroxyprogesterone [Provera] Allergy (Intermediate, Verified 02/14/23 11:23) SKIN PEELING niacin [From NIASPAN EXTENDED-RELEASE] Allergy (Intermediate, Verified 02/14/23 11:23) facial flushing atorvastatin [From Lipitor] Allergy (Mild, Verified 02/14/23 11:23) MUSCLE ACHES, myalgia gemfibrozil [From Lopid] Allergy (Mild, Verified 02/14/23 11:23) MUSCLE ACHES fluconazole [From DIFLUCAN] Allergy (Unknown, Verified 02/14/23 11:23) PER H&P nitroglycerin [From Nitro-Dur] Adverse Reaction (Mild, Verified 02/14/23 11:23) LOW BLOOD PRESSURE Medication List - Last Reconciled 02/14/23 by Bernadette Hutchinson RN albuterol sulfate 90 mcg/actuation 2 puffs PO Q6H PRN 30 days blood sugar diagnostic (FreeStyle Lite Strips) Use to check blood sugars twice daily citalopram 20 mg PO DAILY 90 days FreeStyle Lite Meter (blood-glucose meter) As directed NS hydrochlorothiazide 12.5 mg PO DAILY insulin glargine (Lantus Solostar U-100 Insulin) 60 units (0.6 mL) subcut BID 90 days lancets (BD Ultra Fine Lancets) Use to check blood sugar twice daily lisinopril 20 mg PO DAILY 90 days metformin 500 mg PO BID omeprazole 20 mg PO 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, 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 [place]) 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 PRN warfarin 10 mg orally 5days/ 15mg x 2 days; warfarin 10 mg See Protocol PO DAILY Nursing Note Amb to [facility] feeling ok, sts she ran out of her warfarin taking last dose last (see compose note of 02/13) sts did not receive refill untill Monday Medications and supplements reviewed, no other changes No changes in health, diet, medications, or supplements-sts she quit job on Monday due to continued health issues Denies any unusual signs and symptoms of bruising, bleeding Denies any new Chest pain, SOB, or clotting INR:1.0 critical low however expected due to 3 missed doses and just resuming warfarin last night Nutritional guidance given: no greens until seen Dose: take 15mg daily till recheck on Monday; F/U INR: Saturday 02/17 Patient verbalizes understanding of instructions given with accurate read back/ teach back of dosing call to Dr Contreras office, spoke with Azul TREJO critical INR reported 1.0, missed doses x 3 days as pt ran out of warfarin, resumed last night 15mg, continue 15mg until seen on Monday return call from Elizabeth TREJO at Dr Contreras office, no new orders, continue with dosing this week as noted Anti-Coag Initial Assessment Social Hx Patient Tobacco Use Status: Former Tobacco user Tobacco use type: Cigarette alcohol intake: former Alcohol intake frequency: holidays/special occasions only Questionnaires HAS-BLED Does the patient had uncontrolled Hypertension?: No Does the patient have renal disease?: Yes Does the patient have liver disease?: No Does the patient have a history of stroke?: No Has the patient had major bleeding or predisposition to bleeding?: No Does the patient have labile INRs?: Yes Is the patient over 65 years of age?: Yes Is the patient on medications that gives them a predisposition to bleeding?: Yes Does the patient use alcohol?: No HAS-BLED Score: 4 CHADSVASC Age: <65 Gender: Female Does the patient have a history of CHF?: No Does the patient have a history of Hypertension?: Yes Does the patient have a history of Stroke/TIA/Thromboembolism?: Yes Does the patient have a history of Vascular Disease (prior CA, PAD or aortic plaque)?: No Does the patient have a history of Diabetes?: Yes CHADS VACS Score: 5 Mode Prediction Score Rsk VTE Active Cancer: No Previous VTE, excluding superficial vein thrombosis: Yes Reduced mobility: No Already known Thrombophilic Condition: Yes With-in last month Trauma and/or Surgery: No Elderly 70 year or older: No Heart and/or Respiratory Failure: No Acute Myocardial infarction and/or Ischemic Stroke: No Acute Infection and/or Rheumatologic Disorder: No Obesity (BMI 30 or greater): Yes Ongoing Hormonal Treatment: No Score: 7 Mode Score less than 4; Low Risk of VTE Mode Score 4 or greater; High Risk of VTE Coding Level of Care Code Est Patient Level 1 Diagnoses Current use of anticoagulant therapy Z79.01 Time Spent (min) 15 Results AMB INR Fingerstick AMB INR Fingerstick 1.0 Last Edit by Bernadette Hutchinson RN on 02/14/23 11:31 interface failure Assessment & Plan Assessment & Plan (1) Current use of anticoagulant therapy: 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
== END 2023-02-14 12:09 | disposition home or self-care (01) ==
LOC: HO.ACS 11:15
PROVIDERS: PCP Internal Medicine; Visit Provider Internal Medicine
DX: Z79.01 Long term (current) use of anticoagulants (principal)

== ENCOUNTER → 2023-02-14 11:15 | Outpatient (BNVA) | payer MEDICARE, SELFPAY | PROVIDERS: PCP Internal Medicine; Visit Provider Internal Medicine | DX: Z86.718 Personal history of other venous thrombosis and embolism (principal); Z51.81 Encounter for therapeutic drug level monitoring; Z79.01 Long term (current) use of anticoagulants | CPT/HCPCS: 85610; 99211 ==

== ENCOUNTER 2023-02-17 10:50 | Outpatient (AMB) | payer MEDICARE, SELFPAY ==
--- NOTE | 2023-02-17 11:01 | MHC.OFFVISCO ---
Intake Intake Visit Reasons: Anticoagulation Allergies medroxyprogesterone [Provera] Allergy (Intermediate, Verified 02/17/23 10:53) SKIN PEELING niacin [From NIASPAN EXTENDED-RELEASE] Allergy (Intermediate, Verified 02/17/23 10:53) facial flushing atorvastatin [From Lipitor] Allergy (Mild, Verified 02/17/23 10:53) MUSCLE ACHES, myalgia gemfibrozil [From Lopid] Allergy (Mild, Verified 02/17/23 10:53) MUSCLE ACHES fluconazole [From DIFLUCAN] Allergy (Unknown, Verified 02/17/23 10:53) PER H&P nitroglycerin [From Nitro-Dur] Adverse Reaction (Mild, Verified 02/17/23 10:53) LOW BLOOD PRESSURE Medication List - Last Reconciled 02/17/23 by Bernadette Hutchinson RN albuterol sulfate 90 mcg/actuation 2 puffs PO Q6H PRN 30 days blood sugar diagnostic (FreeStyle Lite Strips) Use to check blood sugars twice daily citalopram 20 mg PO DAILY 90 days FreeStyle Lite Meter (blood-glucose meter) As directed NS hydrochlorothiazide 12.5 mg PO DAILY insulin glargine (Lantus Solostar U-100 Insulin) 60 units (0.6 mL) subcut BID 90 days lancets (BD Ultra Fine Lancets) Use to check blood sugar twice daily lisinopril 20 mg PO DAILY 90 days metformin 500 mg PO BID omeprazole 20 mg PO ONCE 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, 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 [place]) BID PRN warfarin See Protocol 10 mg orally 5days/ 15mg x 2 days; warfarin 10 mg See Protocol PO DAILY Nursing Note Amb to [facility] feeling well Medications and supplements reviewed No changes in health, diet, medications, or supplements Denies any unusual signs and symptoms of bruising, bleeding Denies any new Chest pain, SOB, or clotting INR: 2.2 now in therapeutic range after prev 1.0 due to no med x 3 days Nutritional guidance given: balance greens and reds in diet Dose: continue usual dosing;15mg x 2 days and 10mg x 5 days F/U INR: 2 weeks Patient verbalizes understanding of instructions given with accurate read back/ teach back of dosing Anti-Coag Initial Assessment Social Hx Patient Tobacco Use Status: Former Tobacco user Tobacco use type: Cigarette alcohol intake: former Alcohol intake frequency: holidays/special occasions only Coding Level of Care Code Est Patient Level 1 Diagnoses Current use of anticoagulant therapy Z79.01 Time Spent (min) 15 Assessment & Plan Assessment & Plan (1) Current use of anticoagulant therapy: 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
== END 2023-02-17 11:06 | disposition home or self-care (01) ==
LOC: HO.ACS 10:50
PROVIDERS: PCP Internal Medicine; Visit Provider Internal Medicine
DX: Z79.01 Long term (current) use of anticoagulants (principal)

== ENCOUNTER → 2023-02-17 10:50 | Outpatient (BNVA) | payer MEDICARE, SELFPAY | PROVIDERS: PCP Internal Medicine; Visit Provider Internal Medicine | DX: Z86.718 Personal history of other venous thrombosis and embolism (principal); Z79.01 Long term (current) use of anticoagulants; Z51.81 Encounter for therapeutic drug level monitoring | CPT/HCPCS: 85610; 99211 ==

== ENCOUNTER 2023-03-02 11:08 | Outpatient (AMB) | payer MEDICARE, SELFPAY ==
--- NOTE | 2023-03-02 11:22 | MHC.OFFVISCO ---
Intake Intake Visit Reasons: Anticoagulation Allergies medroxyprogesterone [Provera] Allergy (Intermediate, Verified 03/02/23 11:14) SKIN PEELING niacin [From NIASPAN EXTENDED-RELEASE] Allergy (Intermediate, Verified 03/02/23 11:14) facial flushing atorvastatin [From Lipitor] Allergy (Mild, Verified 03/02/23 11:14) MUSCLE ACHES, myalgia gemfibrozil [From Lopid] Allergy (Mild, Verified 03/02/23 11:14) MUSCLE ACHES fluconazole [From DIFLUCAN] Allergy (Unknown, Verified 03/02/23 11:14) PER H&P nitroglycerin [From Nitro-Dur] Adverse Reaction (Mild, Verified 03/02/23 11:14) LOW BLOOD PRESSURE Medication List - Last Reconciled 03/02/23 by Shruthi Quinones RN albuterol sulfate 90 mcg/actuation 2 puffs PO Q6H PRN 30 days blood sugar diagnostic (FreeStyle Lite Strips) Use to check blood sugars twice daily citalopram 20 mg PO DAILY 90 days FreeStyle Lite Meter (blood-glucose meter) As directed NS hydrochlorothiazide 12.5 mg PO DAILY insulin glargine (Lantus Solostar U-100 Insulin) 60 units (0.6 mL) subcut BID 90 days lancets (BD Ultra Fine Lancets) Use to check blood sugar twice daily lisinopril 20 mg PO DAILY 90 days metformin 500 mg PO BID omeprazole 20 mg PO ONCE 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 Bleeding, bruising, clotting discussed Nutritional guidance given Dose: 10mg x 5, 15mg x 2 F/U INR: 2 weeks Patient verbalizes understanding of instructions given Anti-Coag Initial Assessment Social Hx Patient Tobacco Use Status: Former Tobacco user Tobacco use type: Cigarette alcohol intake: former Alcohol intake frequency: holidays/special occasions only Coding Level of Care Code Est Patient Level 1 Diagnoses Current use of anticoagulant therapy Z79.01 Results AMB INR Fingerstick AMB INR Fingerstick 2.9 Last Edit by Shruthi Quinones RN on 03/02/23 11:29 Assessment & Plan Assessment & Plan (1) Current use of anticoagulant therapy: Code(s): Z79.01 - group home (current) use of anticoagulants Category: Medical
[2023-03-02 12:10] LABS: Prothrombin Time Whole Bld POC 34.8 sec (11.1-13.5); ~PT, ~INR - Anti Coag Clinic 2.9 (0.9-1.1)
== END 2023-03-02 11:34 | disposition home or self-care (01) ==
LOC: HO.ACS 11:08
PROVIDERS: PCP Internal Medicine; Visit Provider Internal Medicine
DX: Z79.01 Long term (current) use of anticoagulants (principal)

== ENCOUNTER → 2023-03-02 11:08 | Outpatient (BNVA) | payer MEDICARE, SELFPAY | PROVIDERS: PCP Internal Medicine; Visit Provider Internal Medicine | DX: Z86.718 Personal history of other venous thrombosis and embolism (principal); Z79.01 Long term (current) use of anticoagulants; Z51.81 Encounter for therapeutic drug level monitoring | CPT/HCPCS: 85610; 99211 ==

== ENCOUNTER 2023-03-16 11:10 | Outpatient (AMB) | payer MEDICARE, SELFPAY ==
[2023-03-16 11:16] LABS: ~PT, ~INR - Anti Coag Clinic 4.1 (0.9-1.1)
--- NOTE | 2023-03-16 11:21 | MHC.OFFVISCO ---
Intake Intake Visit Reasons: Anticoagulation Allergies medroxyprogesterone [Provera] Allergy (Intermediate, Verified 03/16/23 11:11) SKIN PEELING niacin [From NIASPAN EXTENDED-RELEASE] Allergy (Intermediate, Verified 03/16/23 11:11) facial flushing atorvastatin [From Lipitor] Allergy (Mild, Verified 03/16/23 11:11) MUSCLE ACHES, myalgia gemfibrozil [From Lopid] Allergy (Mild, Verified 03/16/23 11:11) MUSCLE ACHES fluconazole [From DIFLUCAN] Allergy (Unknown, Verified 03/16/23 11:11) PER H&P nitroglycerin [From Nitro-Dur] Adverse Reaction (Mild, Verified 03/16/23 11:11) LOW BLOOD PRESSURE Medication List - Last Reconciled 03/16/23 by Bernadette Hutchinson RN albuterol sulfate 90 mcg/actuation 2 puffs PO Q6H PRN 30 days blood sugar diagnostic (FreeStyle Lite Strips) Use to check blood sugars twice daily citalopram 20 mg PO DAILY 90 days FreeStyle Lite Meter (blood-glucose meter) As directed NS hydrochlorothiazide 12.5 mg PO DAILY insulin glargine (Lantus Solostar U-100 Insulin) 60 units (0.6 mL) subcut BID 90 days lancets (BD Ultra Fine Lancets) Use to check blood sugar twice daily lisinopril 20 mg PO DAILY 90 days metformin 500 mg PO BID omeprazole 20 mg PO ONCE 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, 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 [place]) BID PRN warfarin See Protocol 10 mg orally 5days/ 15mg x 2 days; warfarin 10 mg See Protocol PO DAILY Nursing Note Amb to [facility] feeling well Medications and supplements reviewed No changes in health, diet, medications, or supplements Denies any unusual signs and symptoms of bruising, bleeding Denies any new Chest pain, SOB, or clotting INR: 4.1 above therapeutic range, sts she hasn't been eating the usual greens Nutritional guidance given: greens today then balance greens and reds in diet, be consistent Dose: decrease dose today to 5mg (vs 15mg) then resume usual dosing; 15mg x 2 days and 10mg x 5 days F/U INR: 1 week Patient verbalizes understanding of instructions given with accurate read back/ teach back of dosing Anti-Coag Initial Assessment Social Hx Patient Tobacco Use Status: Former Tobacco user Tobacco use type: Cigarette alcohol intake: former Alcohol intake frequency: holidays/special occasions only Coding Level of Care Code Est Patient Level 1 Diagnoses Current use of anticoagulant therapy Z79.01 Time Spent (min) 15 Assessment & Plan Assessment & Plan (1) Current use of anticoagulant therapy: Code(s): Z79.01 - [facility] (current) use of anticoagulants Category: Medical
== END 2023-03-16 11:27 | disposition home or self-care (01) ==
LOC: HO.ACS 11:10
PROVIDERS: PCP Internal Medicine; Visit Provider Internal Medicine
DX: Z79.01 Long term (current) use of anticoagulants (principal)

== ENCOUNTER → 2023-03-16 11:10 | Outpatient (BNVA) | payer MEDICARE, SELFPAY | PROVIDERS: PCP Internal Medicine; Visit Provider Internal Medicine | DX: Z86.718 Personal history of other venous thrombosis and embolism (principal); Z79.01 Long term (current) use of anticoagulants; Z51.81 Encounter for therapeutic drug level monitoring | CPT/HCPCS: 85610; 99211 ==

== ENCOUNTER 2023-03-23 11:14 | Outpatient (AMB) | payer MEDICARE, SELFPAY ==
--- NOTE | 2023-03-23 11:27 | MHC.OFFVISCO ---
Intake Intake Visit Reasons: Anticoagulation Allergies medroxyprogesterone [Provera] Allergy (Intermediate, Verified 03/23/23 11:15) SKIN PEELING niacin [From NIASPAN EXTENDED-RELEASE] Allergy (Intermediate, Verified 03/23/23 11:15) facial flushing atorvastatin [From Lipitor] Allergy (Mild, Verified 03/23/23 11:15) MUSCLE ACHES, myalgia gemfibrozil [From Lopid] Allergy (Mild, Verified 03/23/23 11:15) MUSCLE ACHES fluconazole [From DIFLUCAN] Allergy (Unknown, Verified 03/23/23 11:15) PER H&P nitroglycerin [From Nitro-Dur] Adverse Reaction (Mild, Verified 03/23/23 11:15) LOW BLOOD PRESSURE Medication List - Last Reconciled 03/23/23 by Kathia Kennedy RN albuterol sulfate 90 mcg/actuation 2 puffs PO Q6H PRN 30 days blood sugar diagnostic (FreeStyle Lite Strips) Use to check blood sugars twice daily citalopram 20 mg PO DAILY 90 days FreeStyle Lite Meter (blood-glucose meter) As directed NS hydrochlorothiazide 12.5 mg PO DAILY insulin glargine (Lantus Solostar U-100 Insulin) 60 units (0.6 mL) subcut BID 90 days lancets (BD Ultra Fine Lancets) Use to check blood sugar twice daily lisinopril 20 mg PO DAILY 90 days metformin 500 mg PO BID omeprazole 20 mg PO ONCE 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 Bleeding, bruising, clotting discussed Nutritional guidance given - EXPLAINED COOKED GREENS LOWER INR MORE Dose: 15MG X 2 DAYS/ 10MG X 5 DAYS F/U INR: 04/04/23 Patient verbalizes understanding of instructions given Anti-Coag Initial Assessment Social Hx Patient Tobacco Use Status: Former Tobacco user Tobacco use type: Cigarette alcohol intake: former Alcohol intake frequency: holidays/special occasions only Coding Level of Care Code Est Patient Level 1 Diagnoses Current use of anticoagulant therapy Z79.01 Results AMB INR Fingerstick AMB INR Fingerstick 3.3 Last Edit by Kathia Kennedy RN on 03/23/23 11:21 MANUAL ENTRY AMB INR Fingerstick AMB INR Fingerstick 3.2 Last Edit by Kathia Kennedy RN on 03/23/23 11:26 MANUAL ENTRY Assessment & Plan Assessment & Plan (1) Current use of anticoagulant therapy: 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
[2023-03-24 09:36] LABS: Prothrombin Time Whole Bld POC 38.6 sec (11.1-13.5); ~PT, ~INR - Anti Coag Clinic 3.2 (0.9-1.1)
== END 2023-03-23 11:32 | disposition home or self-care (01) ==
LOC: HO.ACS 11:14
PROVIDERS: PCP Internal Medicine; Visit Provider Internal Medicine
DX: Z79.01 Long term (current) use of anticoagulants (principal)

== ENCOUNTER → 2023-03-23 11:14 | Outpatient (BNVA) | payer MEDICARE, SELFPAY | PROVIDERS: PCP Internal Medicine; Visit Provider Internal Medicine | DX: Z86.718 Personal history of other venous thrombosis and embolism (principal); Z79.01 Long term (current) use of anticoagulants; Z51.81 Encounter for therapeutic drug level monitoring | CPT/HCPCS: 85610; 99211 ==

== ENCOUNTER 2023-04-11 11:15 | Outpatient (AMB) | payer MEDICARE, SELFPAY ==
[2023-04-11 11:22] LABS: Prothrombin Time Whole Bld POC 40.3 sec (11.1-13.5); ~PT, ~INR - Anti Coag Clinic 3.4 (0.9-1.1)
--- NOTE | 2023-04-11 11:22 | MHC.OFFVISCO ---
Intake Intake Visit Reasons: Anticoagulation Allergies medroxyprogesterone [Provera] Allergy (Intermediate, Verified 04/11/23 11:16) SKIN PEELING niacin [From NIASPAN EXTENDED-RELEASE] Allergy (Intermediate, Verified 04/11/23 11:16) facial flushing atorvastatin [From Lipitor] Allergy (Mild, Verified 04/11/23 11:16) MUSCLE ACHES, myalgia gemfibrozil [From Lopid] Allergy (Mild, Verified 04/11/23 11:16) MUSCLE ACHES fluconazole [From DIFLUCAN] Allergy (Unknown, Verified 04/11/23 11:16) PER H&P nitroglycerin [From Nitro-Dur] Adverse Reaction (Mild, Verified 04/11/23 11:16) LOW BLOOD PRESSURE Medication List - Last Reconciled 04/11/23 by Kathia Kennedy RN albuterol sulfate 90 mcg/actuation 2 puffs PO Q6H PRN 30 days blood sugar diagnostic (FreeStyle Lite Strips) Use to check blood sugars twice daily citalopram 20 mg PO DAILY 90 days FreeStyle Lite Meter (blood-glucose meter) As directed NS hydrochlorothiazide 12.5 mg PO DAILY insulin glargine (Lantus Solostar U-100 Insulin) 60 units (0.6 mL) subcut BID 90 days lancets (BD Ultra Fine Lancets) Use to check blood sugar twice daily lisinopril 20 mg PO DAILY 90 days metformin 500 mg PO BID omeprazole 20 mg PO ONCE 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, 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 [place]) BID PRN warfarin See Protocol 10 mg orally 5days/ 15mg x 2 days; warfarin 10 mg See Protocol PO DAILY Nursing Note INR 3.4 out of therapeutic range Medications and supplements reviewed Patient status: S/P COVID AND FLU VACCINE LAST WEEK, AND THANKSGIVING, HAS HAD SALADS Medications or supplements: NO CHANGES Diet: GOOD Denies any signs and symptoms of bleeding or clotting or unusual bruising Bleeding, bruising, clotting discussed Nutritional guidance given: KEEP EATING WEEKLY GREENS AND A MIX OF FRUITS AND VEGETABLES Dose: KEEP SAME DOSE FOR NOW 15MG X 2 DAYS/ 10MG X 5 DAYS F/U INR Date: 2 WEEKS ?? Patient verbalizing understanding of instructions given. Anti-Coag Initial Assessment Social Hx Patient Tobacco Use Status: Former Tobacco user Tobacco use type: Cigarette alcohol intake: former Alcohol intake frequency: holidays/special occasions only Coding Level of Care Code Est Patient Level 1
== END 2023-04-11 11:51 | disposition home or self-care (01) ==
LOC: HO.ACS 11:15
PROVIDERS: PCP Internal Medicine; Visit Provider Internal Medicine
DX: Z79.01 Long term (current) use of anticoagulants (principal)

== ENCOUNTER 2023-04-11 11:15 | Outpatient (REF) | payer MEDICARE, SELFPAY ==
[2023-04-11 14:31] LABS: Alanine Aminotransferase 21 U/L (0-31); Albumin Level 4.1 g/dL (3.5-5.0); Alkaline Phosphatase 93 U/L (39-117); Anion Gap 12 (12-20); Aspartate Amino Transferase 25 U/L (5-31); Bilirubin Total 0.8 mg/dL (0.0-1.0); Blood Urea Nitrogen 15 mg/dL (9-16); Calcium 9.7 mg/dL (8.4-10.2); Carbon Dioxide 29 mmol/L (22-29); Chloride 103 mmol/L (96-108); Estimated Glomerular Filt Rate 51; Glucose Random 137 mg/dL (60-115); Sodium 140 mmol/L (135-145); Total Protein 7.5 g/dL (6.5-8.0)
[2023-04-11 14:32] LABS: Estimated Average Glucose 174 mg/dL; Hemoglobin A1c % 7.7 % (<6.0)
== END 2023-04-11 11:16 | disposition home or self-care (01) ==
LOC: HO.LAB 11:15
PROVIDERS: Absent Provider Internal Medicine; PCP Internal Medicine; Visit Provider Internal Medicine
DX: Z86.718 Personal history of other venous thrombosis and embolism (principal); Z51.81 Encounter for therapeutic drug level monitoring; Z79.01 Long term (current) use of anticoagulants; I12.9 Hypertensive chronic kidney disease with stage 1 through stage 4 chronic kidney disease, or unspecified chronic kidney disease; E11.22 Type 2 diabetes mellitus with diabetic chronic kidney disease; N18.2 Chronic kidney disease, stage 2 (mild); E11.21 Type 2 diabetes mellitus with diabetic nephropathy; E66.01 Morbid (severe) obesity due to excess calories; K21.9 Gastro-esophageal reflux disease without esophagitis; Z79.4 Long term (current) use of insulin
CPT/HCPCS: 36415; 80053; 83036; 85610; 99211

== ENCOUNTER 2023-04-14 13:07 | Outpatient (AMB) | payer MEDICARE, SELFPAY ==
--- NOTE | 2023-04-14 13:10 | MHC.PC.OV ---
Vital Signs 04/14/23 13:12 Height 5 ft 7 in Weight 288 lb BMI 45.1 BP 110/64 Blood Pressure Location Rt brachial Position Sitting Pulse 72 Pulse Source Pulse Oximeter Pulse Oximetry (%) 93 Oxygen Delivery Method Room Air Intake Visit Reasons: 3 month fu Allergies medroxyprogesterone [Provera] Allergy (Intermediate, Verified 04/14/23 13:12) SKIN PEELING niacin [From NIASPAN EXTENDED-RELEASE] Allergy (Intermediate, Verified 04/14/23 13:12) facial flushing atorvastatin [From Lipitor] Allergy (Mild, Verified 04/14/23 13:12) MUSCLE ACHES, myalgia gemfibrozil [From Lopid] Allergy (Mild, Verified 04/14/23 13:12) MUSCLE ACHES fluconazole [From DIFLUCAN] Allergy (Unknown, Verified 04/14/23 13:12) PER H&P nitroglycerin [From Nitro-Dur] Adverse Reaction (Mild, Verified 04/14/23 13:12) LOW BLOOD PRESSURE Medication List - Last Reconciled 04/14/23 by Ricco Hill MD albuterol sulfate 90 mcg/actuation 2 puffs PO Q6H PRN 30 days blood sugar diagnostic (FreeStyle Lite Strips) Use to check blood sugars twice daily citalopram 20 mg PO DAILY 90 days FreeStyle Lite Meter (blood-glucose meter) As directed NS hydrochlorothiazide 12.5 mg PO DAILY insulin glargine (Lantus Solostar U-100 Insulin) 60 units (0.6 mL) subcut BID 90 days lancets (BD Ultra Fine Lancets) Use to check blood sugar twice daily lisinopril 20 mg PO DAILY 90 days metformin 500 mg PO BID omeprazole 20 mg PO ONCE 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, 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 [place]) BID PRN warfarin See Protocol 10 mg orally 5days/ 15mg x 2 days; warfarin 10 mg See Protocol PO DAILY Tobacco use date assessed: 04/14/23 Fall risk assessment: 2 + Falls in past year Last assessed Fall Risk: 04/14/23 Dental Screening Dental Screen Date: 04/14/23 Did you have a dental visit in the last 12 months?: Yes Did you have a dental problem in the last 6 months where you did not have access to dental care?: No Was dental information given to patient?: Patient has dentist HPI 3 month fu HPI Details Patient is 67-year-old female came in today for her regular follow-up appointment Insulin dependent diabetes mellitus:? Patient is currently on Lantus 75 units b.i.d. her hemoglobin A1c is stable at 5.8% Patient says that couple of time she had low sugar so she cut done Lantus to 60 units and metformin to 500 mg from 1 g b.i.d. Kidney function liver functions within normal limit allergies stable with generic Zyrtec, depression anxiety:? Patient is on? citalopram 20 mg, and is doing well blood pressure is stable with hydrochlorothiazide 12.5 mg and lisinopril 20 mg daily GERD is stable with omeprazole b.i.d. BMI is elevated patient is trying to lose weight f/u 3 M? ? ?labs are needed before visit [facility] Medical History Long-term insulin use Diabetes 1.5, managed as type 1 Surgical History History of revision of total replacement of right knee joint History of colonoscopy History of total left knee replacement (TKR) History of total right knee replacement (TKR) History of breast biopsy History of tonsillectomy Family History Father Type 2 diabetes mellitus Polymyalgia Mother Cancer of thyroid Sister Breast cancer Sister Leukemia Brother Diabetes mellitus HTN (hypertension) High cholesterol Social History Housing: House Alcohol intake: former Patient Tobacco Use Status: Former Tobacco user Tobacco use type: Cigarette Years Smoked: 4 years e-Cigarette/Vaping Use: Never Used Current occupational status: unemployed Cognitive needs: No Hearing needs: No Vision needs: Yes Female Reproductive History Menstrual Age of Menarche: 12 Questionnaire PHQ-9 Over the last 2 weeks, how often have you been bothered by any of the following problems? 1. Little interest or pleasure in doing things: not at all 2. Feeling down, depressed, or hopeless: not at all 3. Trouble falling or staying asleep, or sleeping too much: several days 4. Feeling tired or having little energy: several days 5. Poor appetite or overeating: not at all 6. Feeling bad about yourself - or that you are a failure or have let yourself or your family down: not at all 7. Trouble concentrating on things, such as reading the newspaper or watching television: not at all 8. Moving or speaking so slowly that other people could have noticed. Or the opposite - being so fidgety or restless that you have been moving around a lot more than usual: not at all 9. Thoughts that you would be better off or of hurting yourself in some way: not at all Total score: 2 Depression Screening Interpretation: Negative Depression Screening Done: Yes 35111 - PHQ-9 Billing: Yes Source: Developed by Drs. Roney Mitchell, Molly Duran, Earl Muhammad and colleagues, with an educational willem from [employer]. Thrive Questionnaire Date Thrive assessed: 09/09/22 LEX-7 AMB Questionnaire LEX-7 Date LEX - 7 assessed: 09/09/22 Source: Developed by Drs. Roney Mitchell, Molly Duran, Earl Muhammad and colleagues, with an educational willem from [employer]. Review of Systems Const Denies chills and Denies fever(s) ENT Denies epistaxis and Denies nasal discharge Card Denies chest pain Resp Denies hemoptysis GI Denies diarrhea and Denies nausea Skin/Breast Denies rash Neuro Reports no additional complaints Psych Reports no additional complaints Endo Reports no additional complaints Physical exam (Primary Care) Vital Signs: Last Vital Signs Pulse 72 04/14/23 13:12 BP 110/64 04/14/23 13:12 Pulse Ox 93 04/14/23 13:12 Oxygen Delivery Method Room Air 04/14/23 13:12 BMI result Body Mass Index 45.1 Tobacco/Smoking Status: Tobacco use Status Tobacco use date assessed 04/14/23 04/14/23 13:13 Patient Tobacco Use Status Former Tobacco user 04/14/23 13:11 Tobacco use type Cigarette 04/14/23 13:11 e-Cigarette/Vaping Use Never Used 04/14/23 13:11 PHQ-9: PHQ-9 Score PHQ-9: Total score 2 04/14/23 15:16 Depression Screening Interpretation: Negative Thrive Assessment: Date of Thrive Assessment Date Thrive assessed 09/09/22 04/14/23 13:11 Const General: cooperative, comfortable and no acute distress Orientation/consciousness: patient oriented x3 HENMT Head: Yes normocephalic Eyes General: appearance normal, both eyes and all related structures Neck Neck: Yes supple Resp Effort & Inspection: normal respiratory effort, no cough and no stridor Cardio Rhythm: regular rhythm Heart sounds: S1 normal heart sound present and S2 normal heart sound present Skin General skin exam: turgor normal Neuro General: patient oriented x3, tone normal and moves all extremities Extrem Right lower extremity: no edema Left lower extremity: no edema Assessment and Plan Assessment & Plan (1) Diabetes 1.5, managed as type 1: Code(s): E13.9 - Other specified diabetes mellitus without complications (2) Long-term insulin use: Code(s): 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.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 (3) Hypertension, essential: Code(s): I10 - Essential (primary) hypertension (4) Anxiety and depression: Code(s): F41.9 - Anxiety disorder, unspecified; F32.9 - Major depressive disorder, single episode, unspecified (5) Chronic kidney disease, stage 2 (mild): Code(s): N18.2 - Chronic kidney disease, stage 2 (mild) (6) Chronic GERD: Code(s): K21.9 - Gastro-esophageal reflux disease without esophagitis (7) Diabetic nephropathy: Code(s): E11.21 - Type 2 diabetes mellitus with diabetic nephropathy Qualifiers: Diabetes mellitus type: due to underlying condition Qualified Code(s): E08.21 - Diabetes mellitus due to underlying condition with diabetic nephropathy (8) Morbid obesity: Code(s): E66.01 - Morbid (severe) obesity due to excess calories Plan Patient is 67-year-old female came in today for her regular follow-up appointment Insulin dependent diabetes mellitus:? Patient is currently on Lantus 75 units b.i.d. her hemoglobin A1c is stable at 5.8% Patient says that couple of time she had low sugar so she cut done Lantus to 60 units and metformin to 500 mg from 1 g b.i.d. Kidney function liver functions within normal limit allergies stable with generic Zyrtec, depression anxiety:? Patient is on? citalopram 20 mg, and is doing well blood pressure is stable with hydrochlorothiazide 12.5 mg and lisinopril 20 mg daily GERD is stable with omeprazole b.i.d. BMI is elevated patient is trying to lose weight f/u 3 M? ? ?labs are needed before visit Medications: New amoxicillin 500 mg PO Q8H 30 caps 0RF 10 days Changed From metformin 500 mg PO BID To metformin 500 mg (1/2 x 1,000 mg) PO BID 90 tabs 0RF 90 days Refilled omeprazole 20 mg PO ONCE 90 caps 0RF 90 days K21.9 - Gastro-esophageal reflux disease without esophagitis warfarin 10 mg See Protocol PO DAILY 90 tabs 0RF albuterol sulfate 90 mcg/actuation 2 puffs PO Q6H PRN 8.5 grams 0RF Wheezing 30 days hydrochlorothiazide 12.5 mg PO DAILY 90 caps 0RF I10 - Essential (primary) hypertension Coding Level of Care Code Est Pt Level 4 (89329) Diagnoses Diabetes 1.5, managed as type 1 E13.9 Long-term insulin use Z79.4 Hypertension, essential I10 Anxiety and depression F41.9; F32.9 Chronic kidney disease, stage 2 (mild) N18.2 Chronic GERD K21.9 Diabetic nephropathy associated with diabetes mellitus due to underlying condition E08.21 Diabetes mellitus type: due to underlying condition Morbid obesity E66.01
[2023-04-14 13:12] VITALS: BP 110/64; PULSE 72; O2SAT 93; BMI 45.1
== END 2023-04-14 14:04 | disposition home or self-care (01) ==
PROVIDERS: PCP Internal Medicine; Visit Provider Internal Medicine
DX: I12.9 Hypertensive chronic kidney disease with stage 1 through stage 4 chronic kidney disease, or unspecified chronic kidney disease (principal); E11.22 Type 2 diabetes mellitus with diabetic chronic kidney disease; N18.2 Chronic kidney disease, stage 2 (mild); Z79.4 Long term (current) use of insulin; E08.21 Diabetes mellitus due to underlying condition with diabetic nephropathy; E66.01 Morbid (severe) obesity due to excess calories; F41.9 Anxiety disorder, unspecified; F32.9 Major depressive disorder, single episode, unspecified; K21.9 Gastro-esophageal reflux disease without esophagitis
CPT/HCPCS: 99214

== ENCOUNTER 2023-04-21 11:06 | Outpatient (AMB) | payer MEDICARE, SELFPAY ==
--- NOTE | 2023-04-21 11:24 | MHC.OFFVISCO ---
Intake Intake Visit Reasons: Anticoagulation Allergies medroxyprogesterone [Provera] Allergy (Intermediate, Verified 04/21/23 11:20) SKIN PEELING niacin [From NIASPAN EXTENDED-RELEASE] Allergy (Intermediate, Verified 04/21/23 11:20) facial flushing atorvastatin [From Lipitor] Allergy (Mild, Verified 04/21/23 11:20) MUSCLE ACHES, myalgia gemfibrozil [From Lopid] Allergy (Mild, Verified 04/21/23 11:20) MUSCLE ACHES fluconazole [From DIFLUCAN] Allergy (Unknown, Verified 04/21/23 11:20) PER H&P nitroglycerin [From Nitro-Dur] Adverse Reaction (Mild, Verified 04/21/23 11:20) LOW BLOOD PRESSURE Medication List - Last Reconciled 04/21/23 by Shruthi Quinones RN albuterol sulfate 90 mcg/actuation 2 puffs PO Q6H PRN 30 days amoxicillin 500 mg PO Q8H 10 days blood sugar diagnostic (FreeStyle Lite Strips) Use to check blood sugars twice daily citalopram 20 mg PO DAILY 90 days FreeStyle Lite Meter (blood-glucose meter) As directed NS hydrochlorothiazide 12.5 mg PO DAILY insulin glargine (Lantus Solostar U-100 Insulin) 60 units (0.6 mL) subcut BID 90 days lancets (BD Ultra Fine Lancets) Use to check blood sugar twice daily lisinopril 20 mg PO DAILY 90 days metformin 500 mg (1/2 x 1,000 mg) PO BID 90 days omeprazole 20 mg PO ONCE 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 out of therapeutic range of 2-3 Medications and supplements reviewed Patient status: upper resp emigdio- clear Medications or supplements: no changes but taking mucinex prn Diet: same Denies any signs and symptoms of bleeding or clotting or unusual bruising Bleeding, bruising, clotting discussed - aware at risk for bleeding, avoid high risk activity Nutritional guidance given: greens for 2 days, no reds for 2 days Dose: hold warfarin today then reduce weekly dosing to 10mg x 6. 15mg x 1 F/U INR Date : 1 week?? Patient verbalizing understanding of instructions given. Anti-Coag Initial Assessment Social Hx Patient Tobacco Use Status: Former Tobacco user Tobacco use type: Cigarette alcohol intake: former Alcohol intake frequency: holidays/special occasions only Coding Level of Care Code Est Patient Level 1 Diagnoses Current use of anticoagulant therapy Z79.01 Assessment & Plan Assessment & Plan (1) Current use of anticoagulant therapy: Code(s): Z79.01 - [facility] (current) use of anticoagulants Category: Medical
[2023-04-21 11:26] LABS: Prothrombin Time Whole Bld POC 53.5 sec (11.1-13.5); ~PT, ~INR - Anti Coag Clinic 4.5 (0.9-1.1)
== END 2023-04-21 11:38 | disposition home or self-care (01) ==
LOC: HO.ACS 11:06
PROVIDERS: PCP Internal Medicine; Visit Provider Internal Medicine
DX: Z79.01 Long term (current) use of anticoagulants (principal)

== ENCOUNTER → 2023-04-21 11:06 | Outpatient (BNVA) | payer MEDICARE, SELFPAY | PROVIDERS: PCP Internal Medicine; Visit Provider Internal Medicine | DX: Z86.718 Personal history of other venous thrombosis and embolism (principal); Z79.01 Long term (current) use of anticoagulants; Z51.81 Encounter for therapeutic drug level monitoring | CPT/HCPCS: 85610; 99211 ==

== ENCOUNTER 2023-04-27 10:54 | Outpatient (AMB) | payer MEDICARE, SELFPAY ==
[2023-04-27 11:08] LABS: Prothrombin Time Whole Bld POC 33.9 sec (11.1-13.5); ~PT, ~INR - Anti Coag Clinic 2.8 (0.9-1.1)
--- NOTE | 2023-04-27 11:18 | MHC.OFFVISCO ---
Intake Intake Visit Reasons: Anticoagulation Allergies medroxyprogesterone [Provera] Allergy (Intermediate, Verified 04/27/23 11:03) SKIN PEELING niacin [From NIASPAN EXTENDED-RELEASE] Allergy (Intermediate, Verified 04/27/23 11:03) facial flushing atorvastatin [From Lipitor] Allergy (Mild, Verified 04/27/23 11:03) MUSCLE ACHES, myalgia gemfibrozil [From Lopid] Allergy (Mild, Verified 04/27/23 11:03) MUSCLE ACHES fluconazole [From DIFLUCAN] Allergy (Unknown, Verified 04/27/23 11:03) PER H&P nitroglycerin [From Nitro-Dur] Adverse Reaction (Mild, Verified 04/27/23 11:03) LOW BLOOD PRESSURE Medication List - Last Reconciled 04/27/23 by Amee Quintero RN albuterol sulfate 90 mcg/actuation 2 puffs PO Q6H PRN 30 days amoxicillin 500 mg PO Q8H 10 days blood sugar diagnostic (FreeStyle Lite Strips) Use to check blood sugars twice daily citalopram 20 mg PO DAILY 90 days FreeStyle Lite Meter (blood-glucose meter) As directed NS hydrochlorothiazide 12.5 mg PO DAILY insulin glargine (Lantus Solostar U-100 Insulin) 60 units (0.6 mL) subcut BID 90 days lancets (BD Ultra Fine Lancets) Use to check blood sugar twice daily lisinopril 20 mg PO DAILY 90 days metformin 500 mg (1/2 x 1,000 mg) PO BID 90 days omeprazole 20 mg PO ONCE 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 COMTINUE PRESENT DOSE AND FOLLOW-UP IN 2 WEEKS. GOOD UNDERSTANDING OF DOSING INSTR. 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
== END 2023-04-27 11:19 | disposition home or self-care (01) ==
LOC: HO.ACS 10:54
PROVIDERS: PCP Internal Medicine; Visit Provider Internal Medicine
DX: Z79.01 Long term (current) use of anticoagulants (principal)

== ENCOUNTER → 2023-04-27 10:54 | Outpatient (BNVA) | payer MEDICARE, SELFPAY | PROVIDERS: PCP Internal Medicine; Visit Provider Internal Medicine | DX: Z86.718 Personal history of other venous thrombosis and embolism (principal); Z79.01 Long term (current) use of anticoagulants; Z51.81 Encounter for therapeutic drug level monitoring | CPT/HCPCS: 85610; 99211 ==

== ENCOUNTER 2023-05-11 10:54 | Outpatient (AMB) | payer MEDICARE, SELFPAY ==
[2023-05-11 11:09] LABS: Prothrombin Time Whole Bld POC 23.7 sec (11.1-13.5)
--- NOTE | 2023-05-11 11:09 | MHC.OFFVISCO ---
Intake Intake Visit Reasons: Anticoagulation Allergies medroxyprogesterone [Provera] Allergy (Intermediate, Verified 05/11/23 11:03) SKIN PEELING niacin [From NIASPAN EXTENDED-RELEASE] Allergy (Intermediate, Verified 05/11/23 11:03) facial flushing atorvastatin [From Lipitor] Allergy (Mild, Verified 05/11/23 11:03) MUSCLE ACHES, myalgia gemfibrozil [From Lopid] Allergy (Mild, Verified 05/11/23 11:03) MUSCLE ACHES fluconazole [From DIFLUCAN] Allergy (Unknown, Verified 05/11/23 11:03) PER H&P nitroglycerin [From Nitro-Dur] Adverse Reaction (Mild, Verified 05/11/23 11:03) LOW BLOOD PRESSURE Medication List - Last Reconciled 05/11/23 by Shruthi Quinones RN albuterol sulfate 90 mcg/actuation 2 puffs PO Q6H PRN 30 days amoxicillin 500 mg PO Q8H 10 days blood sugar diagnostic (FreeStyle Lite Strips) Use to check blood sugars twice daily citalopram 20 mg PO DAILY 90 days FreeStyle Lite Meter (blood-glucose meter) As directed NS hydrochlorothiazide 12.5 mg PO DAILY insulin glargine (Lantus Solostar U-100 Insulin) 60 units (0.6 mL) subcut BID 90 days lancets (BD Ultra Fine Lancets) Use to check blood sugar twice daily lisinopril 20 mg PO DAILY 90 days metformin 500 mg (1/2 x 1,000 mg) PO BID 90 days omeprazole 20 mg PO ONCE 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 Bleeding, bruising, clotting discussed Nutritional guidance given - no greens for 2-3 days, eat reds to raise Dose: cont 15mg x 2, 10mg x 5 F/U INR 1 week due to missed dose Patient verbalizes understanding of instructions given Anti-Coag Initial Assessment Social Hx Patient Tobacco Use Status: Former Tobacco user Tobacco use type: Cigarette alcohol intake: former Alcohol intake frequency: holidays/special occasions only Coding Level of Care Code Est Patient Level 1 Diagnoses Current use of anticoagulant therapy Z79.01 Assessment & Plan Assessment & Plan (1) Current use of anticoagulant therapy: Code(s): Z79.01 - snf (current) use of anticoagulants Category: Medical
== END 2023-05-11 11:31 | disposition home or self-care (01) ==
LOC: HO.ACS 10:54
PROVIDERS: PCP Internal Medicine; Visit Provider Internal Medicine
DX: Z79.01 Long term (current) use of anticoagulants (principal)

== ENCOUNTER → 2023-05-11 10:54 | Outpatient (BNVA) | payer MEDICARE, SELFPAY | PROVIDERS: PCP Internal Medicine; Visit Provider Internal Medicine | DX: Z86.718 Personal history of other venous thrombosis and embolism (principal); Z79.01 Long term (current) use of anticoagulants; Z51.81 Encounter for therapeutic drug level monitoring | CPT/HCPCS: 85610; 99211 ==

== ENCOUNTER 2023-05-18 11:02 | Outpatient (AMB) | payer MEDICARE, SELFPAY ==
--- NOTE | 2023-05-18 11:14 | MHC.OFFVISCO ---
Intake Intake Visit Reasons: Anticoagulation Allergies medroxyprogesterone [Provera] Allergy (Intermediate, Verified 05/18/23 11:02) SKIN PEELING niacin [From NIASPAN EXTENDED-RELEASE] Allergy (Intermediate, Verified 05/18/23 11:02) facial flushing atorvastatin [From Lipitor] Allergy (Mild, Verified 05/18/23 11:02) MUSCLE ACHES, myalgia gemfibrozil [From Lopid] Allergy (Mild, Verified 05/18/23 11:02) MUSCLE ACHES fluconazole [From DIFLUCAN] Allergy (Unknown, Verified 05/18/23 11:02) PER H&P nitroglycerin [From Nitro-Dur] Adverse Reaction (Mild, Verified 05/18/23 11:02) LOW BLOOD PRESSURE Medication List - Last Reconciled 05/18/23 by Amee Quintero RN albuterol sulfate 90 mcg/actuation 2 puffs PO Q6H PRN 30 days amoxicillin 500 mg PO Q8H 10 days blood sugar diagnostic (FreeStyle Lite Strips) Use to check blood sugars twice daily citalopram 20 mg PO DAILY 90 days FreeStyle Lite Meter (blood-glucose meter) As directed NS hydrochlorothiazide 12.5 mg PO DAILY insulin glargine (Lantus Solostar U-100 Insulin) 60 units (0.6 mL) subcut BID 90 days lancets (BD Ultra Fine Lancets) Use to check blood sugar twice daily lisinopril 20 mg PO DAILY 90 days metformin 500 mg (1/2 x 1,000 mg) PO BID 90 days omeprazole 20 mg PO ONCE 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 CONMTINUE PRESENT DOSE AND FOLLOW-UP IN 2 WEEKS. GOOD UNDERSTANDING OF DOSING INSTR. Anti-Coag Initial Assessment Social Hx Patient Tobacco Use Status: Former Tobacco user Tobacco use type: Cigarette alcohol intake: former Alcohol intake frequency: holidays/special occasions only Coding Level of Care Code Est Patient Level 1 Diagnoses Current use of anticoagulant therapy Z79.01 Assessment & Plan Assessment & Plan (1) Current use of anticoagulant therapy: Code(s): Z79.01 - [facility] (current) use of anticoagulants Category: Medical
== END 2023-05-18 11:15 | disposition home or self-care (01) ==
LOC: HO.ACS 11:02
PROVIDERS: PCP Internal Medicine; Visit Provider Internal Medicine
DX: Z79.01 Long term (current) use of anticoagulants (principal)

== ENCOUNTER → 2023-05-18 11:02 | Outpatient (BNVA) | payer MEDICARE, SELFPAY | PROVIDERS: PCP Internal Medicine; Visit Provider Internal Medicine | DX: Z86.718 Personal history of other venous thrombosis and embolism (principal); Z79.01 Long term (current) use of anticoagulants; Z51.81 Encounter for therapeutic drug level monitoring | CPT/HCPCS: 85610; 99211 ==

== ENCOUNTER 2023-06-02 10:48 | Outpatient (AMB) | payer MEDICARE, SELFPAY ==
[2023-06-02 11:00] LABS: Prothrombin Time Whole Bld POC 37.6 sec (11.1-13.5); ~PT, ~INR - Anti Coag Clinic 3.1 (0.9-1.1)
--- NOTE | 2023-06-02 11:09 | MHC.OFFVISCO ---
Intake Intake Visit Reasons: Anticoagulation Allergies medroxyprogesterone [Provera] Allergy (Intermediate, Verified 06/02/23 11:00) SKIN PEELING niacin [From NIASPAN EXTENDED-RELEASE] Allergy (Intermediate, Verified 06/02/23 11:00) facial flushing atorvastatin [From Lipitor] Allergy (Mild, Verified 06/02/23 11:00) MUSCLE ACHES, myalgia gemfibrozil [From Lopid] Allergy (Mild, Verified 06/02/23 11:00) MUSCLE ACHES fluconazole [From DIFLUCAN] Allergy (Unknown, Verified 06/02/23 11:00) PER H&P nitroglycerin [From Nitro-Dur] Adverse Reaction (Mild, Verified 06/02/23 11:00) LOW BLOOD PRESSURE Medication List - Last Reconciled 06/02/23 by Bernadette Barreto, RN albuterol sulfate 90 mcg/actuation 2 puffs PO Q6H PRN 30 days amoxicillin 500 mg PO Q8H 10 days blood sugar diagnostic (FreeStyle Lite Strips) Use to check blood sugars twice daily citalopram 20 mg PO DAILY 90 days FreeStyle Lite Meter (blood-glucose meter) As directed NS hydrochlorothiazide 12.5 mg PO DAILY insulin glargine (Lantus Solostar U-100 Insulin) 60 units (0.6 mL) subcut BID 90 days lancets (BD Ultra Fine Lancets) Use to check blood sugar twice daily lisinopril 20 mg PO DAILY 90 days metformin 500 mg (1/2 x 1,000 mg) PO BID 90 days omeprazole 20 mg PO ONCE 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 PT DENIES BLEEDING. USUAL SMALL BRUISES. TO RETURN IN 3WEEKS. INSTRUCTED TO CONTINUE EATING GREENS. PT VERBALIZES UNDERSTANDING. Anti-Coag Initial Assessment Social Hx Patient Tobacco Use Status: Former Tobacco user Tobacco use type: Cigarette alcohol intake: former Alcohol intake frequency: holidays/special occasions only Coding Level of Care Code Est Patient Level 1 Diagnoses Current use of anticoagulant therapy Z79.01 Assessment & Plan Assessment & Plan (1) Current use of anticoagulant therapy: Code(s): Z79.01 - half-way (current) use of anticoagulants Category: Medical
== END 2023-06-02 11:16 | disposition home or self-care (01) ==
LOC: HO.ACS 10:48
PROVIDERS: PCP Internal Medicine; Visit Provider Internal Medicine
DX: Z79.01 Long term (current) use of anticoagulants (principal)

== ENCOUNTER → 2023-06-02 10:48 | Outpatient (BNVA) | payer MEDICARE, SELFPAY | PROVIDERS: PCP Internal Medicine; Visit Provider Internal Medicine | DX: Z86.718 Personal history of other venous thrombosis and embolism (principal); Z79.01 Long term (current) use of anticoagulants; Z51.81 Encounter for therapeutic drug level monitoring | CPT/HCPCS: 85610; 99211 ==

== ENCOUNTER 2023-06-22 10:26 | Outpatient (AMB) | payer MEDICARE, SELFPAY ==
[2023-06-22 10:37] LABS: Prothrombin Time Whole Bld POC 39.9 sec (11.1-13.5); ~PT, ~INR - Anti Coag Clinic 3.3 (0.9-1.1)
--- NOTE | 2023-06-22 10:43 | MHC.OFFVISCO ---
Intake Intake Visit Reasons: Anticoagulation Allergies medroxyprogesterone [Provera] Allergy (Intermediate, Verified 06/22/23 10:32) SKIN PEELING niacin [From NIASPAN EXTENDED-RELEASE] Allergy (Intermediate, Verified 06/22/23 10:32) facial flushing atorvastatin [From Lipitor] Allergy (Mild, Verified 06/22/23 10:32) MUSCLE ACHES, myalgia gemfibrozil [From Lopid] Allergy (Mild, Verified 06/22/23 10:32) MUSCLE ACHES fluconazole [From DIFLUCAN] Allergy (Unknown, Verified 06/22/23 10:32) PER H&P nitroglycerin [From Nitro-Dur] Adverse Reaction (Mild, Verified 06/22/23 10:32) LOW BLOOD PRESSURE Medication List - Last Reconciled 06/22/23 by Bernadette Barreto, RN albuterol sulfate 90 mcg/actuation 2 puffs PO Q6H PRN 30 days amoxicillin 500 mg PO Q8H 10 days blood sugar diagnostic (FreeStyle Lite Strips) Use to check blood sugars twice daily citalopram 20 mg PO DAILY 90 days FreeStyle Lite Meter (blood-glucose meter) As directed NS hydrochlorothiazide 12.5 mg PO DAILY insulin glargine (Lantus Solostar U-100 Insulin) 60 units (0.6 mL) subcut BID 90 days lancets (BD Ultra Fine Lancets) Use to check blood sugar twice daily lisinopril 20 mg PO DAILY 90 days metformin 500 mg (1/2 x 1,000 mg) PO BID 90 days omeprazole 20 mg PO ONCE 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 Bleeding, bruising, clotting discussed Nutritional guidance given Dose: todays dose decreased to 10 mg then resume usual dose of 15 mg X2 days and 10 mg X 1 day F/U INR: 1 week Patient verbalizes understanding of instructions given Anti-Coag Initial Assessment Social Hx Patient Tobacco Use Status: Former Tobacco user Tobacco use type: Cigarette alcohol intake: former Alcohol intake frequency: holidays/special occasions only Coding Level of Care Code Est Patient Level 1 Diagnoses Current use of anticoagulant therapy Z79.01 Assessment & Plan Assessment & Plan (1) Current use of anticoagulant therapy: 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
== END 2023-06-22 10:47 | disposition home or self-care (01) ==
LOC: HO.ACS 10:26
PROVIDERS: PCP Internal Medicine; Visit Provider Internal Medicine
DX: Z79.01 Long term (current) use of anticoagulants (principal)

== ENCOUNTER → 2023-06-22 10:26 | Outpatient (BNVA) | payer MEDICARE, SELFPAY | PROVIDERS: PCP Internal Medicine; Visit Provider Internal Medicine | DX: Z86.718 Personal history of other venous thrombosis and embolism (principal); Z79.01 Long term (current) use of anticoagulants; Z51.81 Encounter for therapeutic drug level monitoring | CPT/HCPCS: 85610; 99211 ==

== ENCOUNTER 2023-06-29 10:38 | Outpatient (AMB) | payer MEDICARE, SELFPAY ==
[2023-06-29 10:47] LABS: Prothrombin Time Whole Bld POC 35.4 sec (11.1-13.5); ~PT, ~INR - Anti Coag Clinic 2.9 (0.9-1.1)
--- NOTE | 2023-06-29 10:49 | MHC.OFFVISCO ---
Intake Intake Visit Reasons: Anticoagulation Allergies medroxyprogesterone [Provera] Allergy (Intermediate, Verified 06/29/23 10:43) SKIN PEELING niacin [From NIASPAN EXTENDED-RELEASE] Allergy (Intermediate, Verified 06/29/23 10:43) facial flushing atorvastatin [From Lipitor] Allergy (Mild, Verified 06/29/23 10:43) MUSCLE ACHES, myalgia gemfibrozil [From Lopid] Allergy (Mild, Verified 06/29/23 10:43) MUSCLE ACHES fluconazole [From DIFLUCAN] Allergy (Unknown, Verified 06/29/23 10:43) PER H&P nitroglycerin [From Nitro-Dur] Adverse Reaction (Mild, Verified 06/29/23 10:43) LOW BLOOD PRESSURE Medication List - Last Reconciled 06/29/23 by Bernadette Htuchinson RN albuterol sulfate 90 mcg/actuation 2 puffs PO Q6H PRN 30 days amoxicillin 500 mg PO Q8H 10 days blood sugar diagnostic (FreeStyle Lite Strips) Use to check blood sugars twice daily citalopram 20 mg PO DAILY 90 days FreeStyle Lite Meter (blood-glucose meter) As directed NS hydrochlorothiazide 12.5 mg PO DAILY insulin glargine (Lantus Solostar U-100 Insulin) 60 units (0.6 mL) subcut BID 90 days lancets (BD Ultra Fine Lancets) Use to check blood sugar twice daily lisinopril 20 mg PO DAILY 90 days metformin 500 mg (1/2 x 1,000 mg) PO BID 90 days omeprazole 20 mg PO ONCE 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, 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) 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 PRN warfarin See Protocol 10 mg orally 5days/ 15mg x 2 days; Nursing Note Amb to ACS feeling well Medications and supplements reviewed No changes in health, diet, medications, or supplements Denies any unusual signs and symptoms of bruising, bleeding Denies any new Chest pain, SOB, or clotting INR: 2.9 now in therapeutic range Nutritional guidance given: balance greens and reds in diet, sts she has cut back on her garlic and onions Dose: continue usual dosing; 15mg x 2 days and 10mg x 5 days F/U INR: 2 weeks Patient verbalizes understanding of instructions given with accurate read back/ teach back of dosing Anti-Coag Initial Assessment Social Hx Patient Tobacco Use Status: Former Tobacco user Tobacco use type: Cigarette alcohol intake: former Alcohol intake frequency: holidays/special occasions only Coding Level of Care Code Est Patient Level 1 Diagnoses Current use of anticoagulant therapy Z79.01 Time Spent (min) 15 Assessment & Plan Assessment & Plan (1) Current use of anticoagulant therapy: Code(s): 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
== END 2023-06-29 10:54 | disposition home or self-care (01) ==
LOC: HO.ACS 10:38
PROVIDERS: PCP Internal Medicine; Visit Provider Internal Medicine
DX: Z79.01 Long term (current) use of anticoagulants (principal)

== ENCOUNTER → 2023-06-29 10:38 | Outpatient (BNVA) | payer MEDICARE, SELFPAY | PROVIDERS: PCP Internal Medicine; Visit Provider Internal Medicine | DX: Z86.718 Personal history of other venous thrombosis and embolism (principal); Z79.01 Long term (current) use of anticoagulants; Z51.81 Encounter for therapeutic drug level monitoring | CPT/HCPCS: 85610; 99211 ==

== ENCOUNTER 2023-07-13 10:59 | Outpatient (AMB) | payer MEDICARE, SELFPAY ==
[2023-07-13 11:06] LABS: Prothrombin Time Whole Bld POC 44.3 sec (11.1-13.5); ~PT, ~INR - Anti Coag Clinic 3.7 (0.9-1.1)
--- NOTE | 2023-07-13 11:20 | MHC.OFFVISCO ---
Intake Intake Visit Reasons: Anticoagulation Allergies medroxyprogesterone [Provera] Allergy (Intermediate, Verified 07/13/23 11:00) SKIN PEELING niacin [From NIASPAN EXTENDED-RELEASE] Allergy (Intermediate, Verified 07/13/23 11:00) facial flushing atorvastatin [From Lipitor] Allergy (Mild, Verified 07/13/23 11:00) MUSCLE ACHES, myalgia gemfibrozil [From Lopid] Allergy (Mild, Verified 07/13/23 11:00) MUSCLE ACHES fluconazole [From DIFLUCAN] Allergy (Unknown, Verified 07/13/23 11:00) PER H&P nitroglycerin [From Nitro-Dur] Adverse Reaction (Mild, Verified 07/13/23 11:00) LOW BLOOD PRESSURE Medication List - Last Reconciled 07/13/23 by Kathia Kennedy RN albuterol sulfate 90 mcg/actuation 2 puffs PO Q6H PRN 30 days amoxicillin 500 mg PO Q8H 10 days blood sugar diagnostic (FreeStyle Lite Strips) Use to check blood sugars twice daily citalopram 20 mg PO DAILY 90 days FreeStyle Lite Meter (blood-glucose meter) As directed NS hydrochlorothiazide 12.5 mg PO DAILY insulin glargine (Lantus Solostar U-100 Insulin) 60 units (0.6 mL) subcut BID 90 days lancets (BD Ultra Fine Lancets) Use to check blood sugar twice daily lisinopril 20 mg PO DAILY 90 days metformin 500 mg (1/2 x 1,000 mg) PO BID 90 days omeprazole 20 mg PO ONCE 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, 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) 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 PRN warfarin See Protocol 10 mg orally 5days/ 15mg x 2 days; Nursing Note INR 3.7 out of therapeutic range Medications and supplements reviewed 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 Patient verbalizing understanding of instructions given. 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
== END 2023-07-13 11:25 | disposition home or self-care (01) ==
LOC: HO.ACS 10:59
PROVIDERS: PCP Internal Medicine; Visit Provider Internal Medicine
DX: Z79.01 Long term (current) use of anticoagulants (principal)

== ENCOUNTER → 2023-07-13 10:59 | Outpatient (BNVA) | payer MEDICARE, SELFPAY | PROVIDERS: PCP Internal Medicine; Visit Provider Internal Medicine | DX: Z86.718 Personal history of other venous thrombosis and embolism (principal); Z79.01 Long term (current) use of anticoagulants; Z51.81 Encounter for therapeutic drug level monitoring | CPT/HCPCS: 85610; 99211 ==

== ENCOUNTER 2023-07-20 11:25 | Outpatient (AMB) | payer MEDICARE, SELFPAY ==
[2023-07-20 11:58] LABS: Prothrombin Time Whole Bld POC 47.4 sec (11.1-13.5); ~PT, ~INR - Anti Coag Clinic 3.9 (0.9-1.1)
--- NOTE | 2023-07-20 12:11 | MHC.OFFVISCO ---
Intake Intake Visit Reasons: Anticoagulation Allergies medroxyprogesterone [Provera] Allergy (Intermediate, Verified 07/20/23 11:44) SKIN PEELING niacin [From NIASPAN EXTENDED-RELEASE] Allergy (Intermediate, Verified 07/20/23 11:44) facial flushing atorvastatin [From Lipitor] Allergy (Mild, Verified 07/20/23 11:44) MUSCLE ACHES, myalgia gemfibrozil [From Lopid] Allergy (Mild, Verified 07/20/23 11:44) MUSCLE ACHES fluconazole [From DIFLUCAN] Allergy (Unknown, Verified 07/20/23 11:44) PER H&P nitroglycerin [From Nitro-Dur] Adverse Reaction (Mild, Verified 07/20/23 11:44) LOW BLOOD PRESSURE Nursing Note INR 3.9??out of therapeutic range of 2-3 Medications and supplements reviewed, no change Patient status: feels well Medications or supplements: no change Diet: pt states has been eating peanut butter and crackers lately, possible cause of increased INR Denies any signs and symptoms of bleeding or clotting or unusual bruising Bleeding, bruising, clotting discussed, pt aware high INR can cause bleeding Nutritional guidance given: have a serving og greens today and tomorrow Dose: todays dose decreased to 5mg(10mg), then to continue usual dose of 10 mg X6 Days and 15mg X 1 day F/U INR Date : 1 week?? Patient verbalizing understanding of instructions given. 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
== END 2023-07-20 13:43 | disposition home or self-care (01) ==
LOC: HO.ACS 11:25
PROVIDERS: PCP Internal Medicine; Visit Provider Internal Medicine
DX: Z79.01 Long term (current) use of anticoagulants (principal)

== ENCOUNTER → 2023-07-20 11:25 | Outpatient (BNVA) | payer MEDICARE, SELFPAY | PROVIDERS: PCP Internal Medicine; Visit Provider Internal Medicine | DX: Z86.718 Personal history of other venous thrombosis and embolism (principal); Z79.01 Long term (current) use of anticoagulants; Z51.81 Encounter for therapeutic drug level monitoring | CPT/HCPCS: 85610; 99211 ==

== ENCOUNTER 2023-07-27 11:27 | Outpatient (AMB) | payer MEDICARE, SELFPAY ==
[2023-07-27 11:34] LABS: Prothrombin Time Whole Bld POC 30.5 sec (11.1-13.5); ~PT, ~INR - Anti Coag Clinic 2.5 (0.9-1.1)
--- NOTE | 2023-07-27 11:36 | MHC.OFFVISCO ---
Intake Intake Visit Reasons: Anticoagulation Allergies medroxyprogesterone [Provera] Allergy (Intermediate, Verified 07/27/23 11:28) SKIN PEELING niacin [From NIASPAN EXTENDED-RELEASE] Allergy (Intermediate, Verified 07/27/23 11:28) facial flushing atorvastatin [From Lipitor] Allergy (Mild, Verified 07/27/23 11:28) MUSCLE ACHES, myalgia gemfibrozil [From Lopid] Allergy (Mild, Verified 07/27/23 11:28) MUSCLE ACHES fluconazole [From DIFLUCAN] Allergy (Unknown, Verified 07/27/23 11:28) PER H&P nitroglycerin [From Nitro-Dur] Adverse Reaction (Mild, Verified 07/27/23 11:28) LOW BLOOD PRESSURE Medication List - Last Reconciled 07/27/23 by Bernadette Hutchinson RN albuterol sulfate 90 mcg/actuation 2 puffs PO Q6H PRN 30 days amoxicillin 500 mg PO Q8H 10 days blood sugar diagnostic (FreeStyle Lite Strips) Use to check blood sugars twice daily citalopram 20 mg PO DAILY 90 days FreeStyle Lite Meter (blood-glucose meter) As directed NS hydrochlorothiazide 12.5 mg PO DAILY insulin glargine (Lantus Solostar U-100 Insulin) 60 units (0.6 mL) subcut BID 90 days lancets (BD Ultra Fine Lancets) Use to check blood sugar twice daily lisinopril 20 mg PO DAILY 90 days metformin 500 mg (1/2 x 1,000 mg) PO BID 90 days omeprazole 20 mg PO ONCE 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, 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) BID PRN warfarin See Protocol 10 mg orally 5days/ 15mg x 2 days; Nursing Note Amb to [facility] feeling well Medications and supplements reviewed, recent warfarin dosing changes No changes in health, diet, medications, or supplements Denies any unusual signs and symptoms of bruising, bleeding Denies any new Chest pain, SOB, or clotting INR: 2.5 in therapeutic range Nutritional guidance given: balance greens and reds in diet Dose: continue new dosing; 15mg x 1 day and 10mg x 6 days F/U INR: 2 weeks Patient verbalizes understanding of instructions given with accurate read back/ teach back of dosing Anti-Coag Initial Assessment Social Hx Patient Tobacco Use Status: Former Tobacco user Tobacco use type: Cigarette alcohol intake: former Alcohol intake frequency: holidays/special occasions only Coding Level of Care Code Est Patient Level 1 Diagnoses Current use of anticoagulant therapy Z79.01 Time Spent (min) 15 Assessment & Plan Assessment & Plan (1) Current use of anticoagulant therapy: 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
== END 2023-07-27 11:42 | disposition home or self-care (01) ==
LOC: HO.ACS 11:27
PROVIDERS: PCP Internal Medicine; Visit Provider Internal Medicine
DX: Z79.01 Long term (current) use of anticoagulants (principal)

== ENCOUNTER → 2023-07-27 11:27 | Outpatient (BNVA) | payer MEDICARE, SELFPAY | PROVIDERS: PCP Internal Medicine; Visit Provider Internal Medicine | DX: Z86.718 Personal history of other venous thrombosis and embolism (principal); Z79.01 Long term (current) use of anticoagulants; Z51.81 Encounter for therapeutic drug level monitoring | CPT/HCPCS: 85610; 99211 ==

== ENCOUNTER 2023-08-10 13:02 | Outpatient (AMB) | payer MEDICARE, SELFPAY ==
[2023-08-10 13:14] LABS: Prothrombin Time Whole Bld POC 39.8 sec (11.1-13.5); ~PT, ~INR - Anti Coag Clinic 3.3 (0.9-1.1)
--- NOTE | 2023-08-10 13:23 | MHC.OFFVISCO ---
Intake Intake Visit Reasons: Anticoagulation Allergies medroxyprogesterone [Provera] Allergy (Intermediate, Verified 08/10/23 13:05) SKIN PEELING niacin [From NIASPAN EXTENDED-RELEASE] Allergy (Intermediate, Verified 08/10/23 13:05) facial flushing atorvastatin [From Lipitor] Allergy (Mild, Verified 08/10/23 13:05) MUSCLE ACHES, myalgia gemfibrozil [From Lopid] Allergy (Mild, Verified 08/10/23 13:05) MUSCLE ACHES fluconazole [From DIFLUCAN] Allergy (Unknown, Verified 08/10/23 13:05) PER H&P nitroglycerin [From Nitro-Dur] Adverse Reaction (Mild, Verified 08/10/23 13:05) LOW BLOOD PRESSURE Medication List - Last Reconciled 08/10/23 by Bernadette Hutchinson RN albuterol sulfate 90 mcg/actuation 2 puffs PO Q6H PRN 30 days amoxicillin 500 mg PO Q8H 10 days blood sugar diagnostic (FreeStyle Lite Strips) Use to check blood sugars twice daily citalopram 20 mg PO DAILY 90 days FreeStyle Lite Meter (blood-glucose meter) As directed NS hydrochlorothiazide 12.5 mg PO DAILY insulin glargine (Lantus Solostar U-100 Insulin) 60 units (0.6 mL) subcut BID 90 days lancets (BD Ultra Fine Lancets) Use to check blood sugar twice daily lisinopril 20 mg PO DAILY 90 days metformin 500 mg (1/2 x 1,000 mg) PO BID 90 days omeprazole 20 mg PO ONCE 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, 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) BID PRN warfarin See Protocol 10 mg orally 5days/ 15mg x 2 days; Nursing Note Amb to [facility] feeling ok Medications and supplements reviewed No changes in health, diet, medications, or supplements Denies any unusual signs and symptoms of bruising, bleeding Denies any new Chest pain, SOB, or clotting INR: 3.3 above therapeutic range, sts she has been eating a lot of nuts , celery and carrots but also brussels sprouts, broccoli and cauliflower Nutritional guidance given: balance greens and reds in diet and be consistent Dose: decrease dose today to 5mg (10mg tablets) then resume usual dosing; 15mg x 1 day and 10mg x 6 days F/U INR: 1 week Patient verbalizes understanding of instructions given with accurate read back/ teach back of dosing Anti-Coag Initial Assessment Social Hx Patient Tobacco Use Status: Former Tobacco user Tobacco use type: Cigarette alcohol intake: former Alcohol intake frequency: holidays/special occasions only Coding Level of Care Code Est Patient Level 1 Diagnoses Current use of anticoagulant therapy Z79.01 Time Spent (min) 15 Assessment & Plan Assessment & Plan (1) Current use of anticoagulant therapy: 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
== END 2023-08-10 13:44 | disposition home or self-care (01) ==
LOC: HO.ACS 13:02
PROVIDERS: PCP Internal Medicine; Visit Provider Internal Medicine
DX: Z79.01 Long term (current) use of anticoagulants (principal)

== ENCOUNTER → 2023-08-10 13:02 | Outpatient (BNVA) | payer MEDICARE, SELFPAY | PROVIDERS: PCP Internal Medicine; Visit Provider Internal Medicine | DX: Z86.718 Personal history of other venous thrombosis and embolism (principal); Z79.01 Long term (current) use of anticoagulants; Z51.81 Encounter for therapeutic drug level monitoring | CPT/HCPCS: 85610; 99211 ==

== ENCOUNTER 2023-08-17 09:32 | Outpatient (AMB) | payer MEDICARE, SELFPAY ==
[2023-08-17 09:47] LABS: Prothrombin Time Whole Bld POC 33.6 sec (11.1-13.5); ~PT, ~INR - Anti Coag Clinic 2.8 (0.9-1.1)
--- NOTE | 2023-08-17 09:51 | MHC.OFFVISCO ---
Intake Intake Visit Reasons: Anticoagulation Allergies medroxyprogesterone [Provera] Allergy (Intermediate, Verified 08/17/23 09:35) SKIN PEELING niacin [From NIASPAN EXTENDED-RELEASE] Allergy (Intermediate, Verified 08/17/23 09:35) facial flushing atorvastatin [From Lipitor] Allergy (Mild, Verified 08/17/23 09:35) MUSCLE ACHES, myalgia gemfibrozil [From Lopid] Allergy (Mild, Verified 08/17/23 09:35) MUSCLE ACHES fluconazole [From DIFLUCAN] Allergy (Unknown, Verified 08/17/23 09:35) PER H&P nitroglycerin [From Nitro-Dur] Adverse Reaction (Mild, Verified 08/17/23 09:35) LOW BLOOD PRESSURE Medication List - Last Reconciled 08/17/23 by Bernadette Barreto, RN albuterol sulfate 90 mcg/actuation 2 puffs PO Q6H PRN 30 days amoxicillin 500 mg PO Q8H 10 days blood sugar diagnostic (FreeStyle Lite Strips) Use to check blood sugars twice daily citalopram 20 mg PO DAILY 90 days FreeStyle Lite Meter (blood-glucose meter) As directed NS hydrochlorothiazide 12.5 mg PO DAILY insulin glargine (Lantus Solostar U-100 Insulin) 60 units (0.6 mL) subcut BID 90 days lancets (BD Ultra Fine Lancets) Use to check blood sugar twice daily lisinopril 20 mg PO DAILY 90 days metformin 500 mg (1/2 x 1,000 mg) PO BID 90 days omeprazole 20 mg PO ONCE 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 Pt is eating healthier. reviewed pt's diet and she is having more greens but also increased intake of fruit and foods from the red side. Denies any signs and symptoms of bleeding or bruising or clotting. Bleeding, bruising, clotting discussed Nutritional guidance given to continue to balance reds and greens Dose: decrease weekly dose to 10mg daily a 5mg weekly decrease as pt has been high. F/U INR: 1 week Patient verbalizes understanding of instructions given Anti-Coag Initial Assessment Social Hx Patient Tobacco Use Status: Former Tobacco user Tobacco use type: Cigarette alcohol intake: former Alcohol intake frequency: holidays/special occasions only Coding Level of Care Code Est Patient Level 1 Diagnoses Current use of anticoagulant therapy Z79.01 Results AMB INR Fingerstick AMB INR Fingerstick 2.8 Last Edit by Bernadette Barreto RN on 08/17/23 09:42 interface delay Assessment & Plan Assessment & Plan (1) Current use of anticoagulant therapy: Code(s): Z79.01 - snf (current) use of anticoagulants Category: Medical
== END 2023-08-17 09:59 | disposition home or self-care (01) ==
LOC: HO.ACS 09:32
PROVIDERS: PCP Internal Medicine; Visit Provider Internal Medicine
DX: Z79.01 Long term (current) use of anticoagulants (principal)

== ENCOUNTER → 2023-08-17 09:32 | Outpatient (BNVA) | payer MEDICARE, SELFPAY | PROVIDERS: PCP Internal Medicine; Visit Provider Internal Medicine | DX: I82.402 Acute embolism and thrombosis of unspecified deep veins of left lower extremity (principal); Z79.01 Long term (current) use of anticoagulants; Z51.81 Encounter for therapeutic drug level monitoring | CPT/HCPCS: 85610; 99211 ==

== ENCOUNTER 2023-08-24 10:59 | Outpatient (AMB) | payer MEDICARE, SELFPAY ==
[2023-08-24 11:09] LABS: Prothrombin Time Whole Bld POC 27.8 sec (11.1-13.5); ~PT, ~INR - Anti Coag Clinic 2.3 (0.9-1.1)
--- NOTE | 2023-08-24 11:16 | MHC.OFFVISCO ---
Intake Intake Visit Reasons: Anticoagulation Allergies medroxyprogesterone [Provera] Allergy (Intermediate, Verified 08/24/23 11:02) SKIN PEELING niacin [From NIASPAN EXTENDED-RELEASE] Allergy (Intermediate, Verified 08/24/23 11:02) facial flushing atorvastatin [From Lipitor] Allergy (Mild, Verified 08/24/23 11:02) MUSCLE ACHES, myalgia gemfibrozil [From Lopid] Allergy (Mild, Verified 08/24/23 11:02) MUSCLE ACHES fluconazole [From DIFLUCAN] Allergy (Unknown, Verified 08/24/23 11:02) PER H&P nitroglycerin [From Nitro-Dur] Adverse Reaction (Mild, Verified 08/24/23 11:02) LOW BLOOD PRESSURE Medication List - Last Reconciled 08/24/23 by Kathia Kennedy RN albuterol sulfate 90 mcg/actuation 2 puffs PO Q6H PRN 30 days amoxicillin 500 mg PO Q8H 10 days blood sugar diagnostic (FreeStyle Lite Strips) Use to check blood sugars twice daily citalopram 20 mg PO DAILY 90 days FreeStyle Lite Meter (blood-glucose meter) As directed NS hydrochlorothiazide 12.5 mg PO DAILY insulin glargine (Lantus Solostar U-100 Insulin) 60 units (0.6 mL) subcut BID 90 days lancets (BD Ultra Fine Lancets) Use to check blood sugar twice daily lisinopril 20 mg PO DAILY 90 days metformin takes 500mg q hs omeprazole 20 mg PO ONCE 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 Bleeding, bruising, clotting discussed Nutritional guidance given- REVIEW FOOD LIST WEEKLY Dose: KEEP SAME 10MG DAILY F/U INR: 2 WEEKS Patient verbalizes understanding of instructions given Anti-Coag Initial Assessment Social Hx Patient Tobacco Use Status: Former Tobacco user Tobacco use type: Cigarette alcohol intake: former Alcohol intake frequency: holidays/special occasions only Coding Level of Care Code Est Patient Level 1 Diagnoses Current use of anticoagulant therapy Z79.01 Results AMB INR Fingerstick AMB INR Fingerstick 2.3 Last Edit by Kathia Kennedy RN on 08/24/23 11:11 manual entry Assessment & Plan Assessment & Plan (1) Current use of anticoagulant therapy: Code(s): Z79.01 - retirement (current) use of anticoagulants Category: Medical Medications: Changed From metformin 500 mg (1/2 x 1,000 mg) PO BID 90 days 90 tabs 0RF To metformin takes 500mg q hs
== END 2023-08-24 11:18 | disposition home or self-care (01) ==
LOC: HO.ACS 10:59
PROVIDERS: PCP Internal Medicine; Visit Provider Internal Medicine
DX: Z79.01 Long term (current) use of anticoagulants (principal)

== ENCOUNTER → 2023-08-24 10:59 | Outpatient (BNVA) | payer MEDICARE, SELFPAY | PROVIDERS: PCP Internal Medicine; Visit Provider Internal Medicine | DX: I82.402 Acute embolism and thrombosis of unspecified deep veins of left lower extremity (principal); Z79.01 Long term (current) use of anticoagulants; Z51.81 Encounter for therapeutic drug level monitoring | CPT/HCPCS: 85610; 99211 ==

== ENCOUNTER 2023-09-07 11:11 | Outpatient (AMB) | payer MEDICARE, SELFPAY ==
[2023-09-07 11:23] LABS: Prothrombin Time Whole Bld POC 35.4 sec (11.1-13.5)
--- NOTE | 2023-09-07 11:30 | MHC.OFFVISCO ---
Intake Intake Visit Reasons: Anticoagulation Allergies medroxyprogesterone [Provera] Allergy (Intermediate, Verified 09/07/23 11:18) SKIN PEELING niacin [From NIASPAN EXTENDED-RELEASE] Allergy (Intermediate, Verified 09/07/23 11:18) facial flushing atorvastatin [From Lipitor] Allergy (Mild, Verified 09/07/23 11:18) MUSCLE ACHES, myalgia gemfibrozil [From Lopid] Allergy (Mild, Verified 09/07/23 11:18) MUSCLE ACHES fluconazole [From DIFLUCAN] Allergy (Unknown, Verified 09/07/23 11:18) PER H&P nitroglycerin [From Nitro-Dur] Adverse Reaction (Mild, Verified 09/07/23 11:18) LOW BLOOD PRESSURE Medication List - Last Reconciled 09/07/23 by Kathia Kennedy RN albuterol sulfate 90 mcg/actuation 2 puffs PO Q6H PRN 30 days amoxicillin 500 mg PO Q8H 10 days blood sugar diagnostic (FreeStyle Lite Strips) Use to check blood sugars twice daily citalopram 20 mg PO DAILY 90 days FreeStyle Lite Meter (blood-glucose meter) As directed NS hydrochlorothiazide 12.5 mg PO DAILY insulin glargine (Lantus Solostar U-100 Insulin) 60 units (0.6 mL) subcut BID 90 days lancets (BD Ultra Fine Lancets) Use to check blood sugar twice daily lisinopril 20 mg PO DAILY 90 days metformin takes 500mg q hs omeprazole 20 mg PO ONCE 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 Bleeding, bruising, clotting discussed Nutritional guidance given - greens today and weekly Dose: keep same for now 10mg daily F/U INR: 2 weeks Patient verbalizes understanding of instructions given Anti-Coag Initial Assessment Social Hx Patient Tobacco Use Status: Former Tobacco user Tobacco use type: Cigarette alcohol intake: former Alcohol intake frequency: holidays/special occasions only Coding Level of Care Code Est Patient Level 1 Diagnoses Current use of anticoagulant therapy Z79.01 Results AMB INR Fingerstick AMB INR Fingerstick 3.0 Last Edit by Kathia Kennedy RN on 09/07/23 11:26 MANUAL ENTRY Assessment & Plan Assessment & Plan (1) Current use of anticoagulant therapy: 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
== END 2023-09-07 11:33 | disposition home or self-care (01) ==
LOC: HO.ACS 11:11
PROVIDERS: PCP Internal Medicine; Visit Provider Internal Medicine
DX: Z79.01 Long term (current) use of anticoagulants (principal)

== ENCOUNTER → 2023-09-07 11:11 | Outpatient (BNVA) | payer MEDICARE, SELFPAY | PROVIDERS: PCP Internal Medicine; Visit Provider Internal Medicine | DX: Z86.718 Personal history of other venous thrombosis and embolism (principal); Z51.81 Encounter for therapeutic drug level monitoring; Z79.01 Long term (current) use of anticoagulants | CPT/HCPCS: 85610; 99211 ==

== ENCOUNTER 2023-09-10 23:31 | Emergency (ER) | payer MEDICARE, SELFPAY ==
--- NOTE | 2023-09-10 | ECG_ITS ---
Test Reason : CHEST PRESSURE Blood Pressure : / mmHG Vent. Rate : 077 BPM Atrial Rate : 077 BPM P-R Int : 156 ms QRS Dur : 082 ms QT Int : 374 ms P-R-T Axes : 041 052 043 degrees QTc Int : 423 ms Normal sinus rhythm Normal ECG When compared with ECG of 23-JUN-2018 11:02, No significant change was found Referred By: Generic ED Physician Electronically Signed By:LIYAH PARSON
--- NOTE | ~2023-09-10 | CT_ITS ---
EXAMINATION: CT ANGIOGRAM OF THE CHEST WITH AND WITHOUT CONTRAST (CT PULMONARY ANGIOGRAM FOR PE) CLINICAL INFORMATION: Reason for Exam cough, hemoptysis COMPARISON: 03/27/2014. TECHNIQUE: Prior to contrast administration, noncontrast localization images were obtained. Subsequently, multidetector volumetric imaging was performed from the thoracic inlet to below the diaphragms following the administration of 80 mL Omnipaque 350 intravenous contrast. No contrast reaction reported Sagittal, coronal, and MIP oblique sagittal reformatted images were obtained on the CT workstation, uploaded to PACS, and reviewed. This CT examination was performed using dose optimization techniques as appropriate, variously including the following: *Automated exposure control *Adjustment of mA and/or kV according to patient size (this includes techniques or standardized protocols for targeted exams where dose is matched to indication/reason for exam; i.e. extremities or head) *Use of iterative reconstruction technique Total exam dose-length product 466 mGy-cm FINDINGS: QUALITY OF STUDY/CONTRAST BOLUS: Satisfactory. PULMONARY ARTERIES: No pulmonary emboli. THORACIC AORTA: No aneurysm. LUNG: There is posterior left lower lobe consolidation. PLEURA: No pleural effusion or pneumothorax. MEDIASTINUM: Normal heart size. No pericardial effusion. No hilar or mediastinal lymphadenopathy. No evidence of septal bowing or right heart strain. CORONARY ARTERY CALCIFICATION: None visualized on this study. CHEST WALL/AXILLA: No axillary or internal mammary lymphadenopathy. OSSEOUS STRUCTURES: No acute or suspicious osseous abnormality. UPPER ABDOMEN: Small fatty left adrenal lesions are again seen. No reflux of contrast into the hepatic veins to suggest elevated right heart pressures. CT/CT angio chest PE protocol IMPRESSION: 1. No evidence of pulmonary embolism. 2. Posterior left lower lobe consolidation. Suspect pneumonia. Consider radiographic follow-up posttreatment. VTE: negative.
[2023-09-10 23:39] VITALS: BP 155/82; PULSE 81; RESP 20; TEMP 37.1; O2SAT 93; BMI 46.2
[2023-09-11 00:09] LABS: Hemoglobin 13.8 g/dl (12.0-16.0); Mean Corpuscular HGB Conc 33.7 g/dl (31.0-35.0); Mean Corpuscular Hemoglobin 27.9 pg (27.0-33.0); Platelet Count 197 X10*3/uL (160-400); Red Blood Count 4.94 X10*6/uL (4.20-5.50); White Blood Count 8.4 X10*3/uL (4.8-10.8)
--- NOTE | 2023-09-11 00:13 | ED_ITS ---
HPI - URI/Sore Throat General Chief Complaint: General Medical Stated Complaint: spitting up blood Time Seen by Provider: 09/11/23 00:08 Source: patient Mode of arrival: ambulatory Limitations: no limitations History of Present Illness HPI Narrative: 67 yo female with PMH of DVT on coumadin, DM, CKD, obesity, HTN, GERD notes she comes in with c/o feeling like crap starting Monday works at [employer] might have sick contacts. At this time she notes chills, feverish, cough, body aches - tonight felt a rattling in her chest and coughed up blood - no clots x 4 on tissue did not saturate them but saw blood on tissue this happened 1.5 hours prior to arrival. This has never happened before to her. MD elicited complaint: cough and other (viral syndrome) Onset (ago): hour(s) (sick since Monday, hemoptysis last 1.5 hours) Consistency: constant Severity: moderate Description of mucous: bloody Able to tolerate fluids by mouth: Yes Exacerbating factors: other (coughing) Relieving factors: nothing Context: sick contacts Associated symptoms: chills, voice changes, myalgias, rhinorrhea and cough Treatments prior to arrival: none Related Data Home Medications ?Medication ?Instructions ?Recorded ?Confirmed metformin 1,000 mg tablet See Rx Instructions PO BID 08/24/23 09/07/23 Previous Rx's ?Medication ?Instructions ?Recorded FreeStyle Lite Meter #1 ea 03/16/21 (blood-glucose meter) blood sugar diagnostic (FreeStyle #100 ea 11/14/22 Lite Strips) citalopram 20 mg tablet 20 mg PO DAILY 90 days #90 tabs 11/14/22 lancets 33 gauge (BD Ultra Fine #100 ea 11/14/22 Lancets) lisinopril 20 mg tablet 20 mg PO DAILY 90 days #90 tabs 11/14/22 insulin glargine 100 unit/mL (3 60 unit (0.6 mL) subcut BID 90 01/24/23 mL) subcutaneous pen (Lant #108 mL Solostar U-100 Insulin) amoxicillin 500 mg capsule 500 mg PO Q8H 10 days #30 caps 04/14/23 hydrochlorothiazide 12.5 mg capsule 12.5 mg PO DAILY #90 caps 12/01/23 albuterol sulfate 90 mcg/actuation 2 puff PO Q6H PRN Wheezing 30 days 05/16/23 aerosol inhaler #8.5 grams pen needle, diabetic 32 gauge x #100 ea 05/22/23 (BD Ginny 2nd Gen Pen Needle) warfarin 10 mg tablet 10 mg PO .COMPLEX #96 tabs 07/20/23 omeprazole 20 mg capsule,delayed 20 mg PO ONCE 90 days #90 caps 08/24/23 release azithromycin 250 mg tablet 250 mg PO DAILY 4 days #4 tabs 09/11/23 cefuroxime axetil 500 mg tablet 500 mg PO BID 7 days #14 tabs 09/11/23 Allergies Allergy/AdvReac Type Severity Reaction Status Date / Time medroxyprogesterone [Provera] Allergy Intermediate SKIN Verified 09/10/23 23:44 PEELING niacin Allergy Intermediate facial Verified 09/10/23 23:44 [From NIASPAN flushing EXTENDED-RELEASE] atorvastatin [From Lipitor] Allergy Mild MUSCLE Verified 09/10/23 23:44 ACHES, myalgia gemfibrozil [From Lopid] Allergy Mild MUSCLE Verified 09/10/23 23:44 ACHES fluconazole [From DIFLUCAN] Allergy Unknown PER H&P Verified 09/10/23 23:44 nitroglycerin AdvReac Mild LOW BLOOD Verified 09/10/23 23:44 [From Nitro-Dur] PRESSURE Review of Systems 2 Review of Systems: Constitutional : No Fever, pos Chills, pos Fatigue ENT/Mouth : No sore throat, No Rhinorrhea Eyes: No Eye Pain, No Swelling, No Redness Cardiovascular : No Chest Pain, No SOB, No Dyspnea on Exertion Respiratory : pos Cough, pos Sputum Gastrointestinal : No Nausea, No Vomiting, No Diarrhea, No abdominal Pain Genitourinary : No Dysuria, No Urinary Frequency, No Hematuria, Musculoskeletal : No joint pain, pos Myalgias, No Joint Swelling Skin : No Skin Lesions, No rash Neuro : No Weakness, No Numbness, No Dizziness, no Headache Psych : No Anxiety/Panic, No Depression Heme/Lymph: No Bruising, No Bleeding,No Lymphadenopathy Endocrine : No Polyuria, No Polydipsia All other systems reviewed and are negative PMFSH Past Medical History Attestation statement: The following information was validated with the patient. Source: old records reviewed Medical History Long-term insulin use Diabetes 1.5, managed as type 1 Surgical History History of revision of total replacement of right knee joint History of colonoscopy History of total left knee replacement (TKR) History of total right knee replacement (TKR) History of breast biopsy History of tonsillectomy Family History Family History Father Type 2 diabetes mellitus Polymyalgia Mother Cancer of thyroid Sister Breast cancer Sister Leukemia Brother Diabetes mellitus HTN (hypertension) High cholesterol Social History Social History Housing: House Alcohol intake: former Patient Tobacco Use Status: Former Tobacco user Tobacco use type: Cigarette Years Smoked: 4 years e-Cigarette/Vaping Use: Never Used Advance Directives: Yes Advance Directives on File: Yes Advance Directives Date on File: 03/05/20 Do you have a plan to hurt others: No Plan Current occupational status: unemployed Cognitive needs: No Hearing needs: No Vision needs: Yes Physical Exam 2 Vital Signs: Vital Signs: Last Vital Signs Temp 98.4 F 09/11/23 05:12 Pulse 66 09/11/23 05:12 Resp 16 09/11/23 05:12 BP 98/62 09/11/23 05:12 Pulse Ox 95 09/11/23 05:12 O2 Del Method Room Air 09/11/23 05:12 BMI result Body Mass Index 46.2 Appearance: Alert. Oriented X3. No acute distress. Eyes: Pupils equal, round and reactive to light. ENT: Pharynx normal. Neck: Normal inspection. Neck supple. CVS: Normal heart rate and rhythm. Pulses normal. Respiratory: No respiratory distress. Breath sounds normal. Abdomen: Soft and nontender. Skin: Skin warm and dry. Normal skin color. Normal skin turgor. Extremities: No lower extremity edema. No calf ttp Neuro: Oriented X 3. No motor deficit. No sensory deficit. Course Course Course Narrative: no signs of sepsis has not had any further hemoptysis since arrival plan will be to start IV ceftriaxone and oral azithromycin and monitor longer while in the ED if no more recurrence will DC home with strict precautions Medications Administered Discontinued Medications Generic Name Dose Route Start Last Admin Trade Name Boy PRN Reason Stop Dose Admin Acetaminophen 650 mg 09/11/23 00:57 09/11/23 02:27 Acetaminophen 325 Mg Tablet PO 09/11/23 00:58 650 mg ONCE ONE Administration Albuterol/Ipratropium 3 ml 09/11/23 01:21 09/11/23 01:23 Albuterol/Iprat 2.5/0.5mg 3 Ml Ampul.Neb INHALE 09/11/23 01:22 3 ml ONCE ONE Administration Azithromycin 500 mg 09/11/23 02:21 09/11/23 02:27 Azithromycin 500 Mg Tablet PO 09/11/23 02:22 500 mg ONCE ONE Administration Guaifenesin/Codeine Phosphate 5 ml 09/11/23 00:57 09/11/23 02:26 Guaifen/Codeine Sf 200/20/10ml 10 Ml Liquid PO 09/11/23 00:58 5 ml ONCE ONE Administration Ceftriaxone Sodium 1 gm/ 50 mls @ 100 mls/hr 09/11/23 02:18 09/11/23 03:00 Sodium Chloride IV 09/11/23 02:47 Infused ONCE ONE Infusion Iohexol 100 ml 09/11/23 01:01 09/11/23 01:01 Iohexol 350 Mg/Ml 100 Ml Infus..Btl IV 09/11/23 01:02 100 ml ONCE ONE Administration Medical Decision Making Medical Decision Making [facility] Narrative: 67 yo female with PMH of DVT on coumadin, DM, CKD, obesity, HTN, GERD here with c/o body aches, not feeling well, chills, cough - noted rattle in chest then hemoptysis at this time she had 4 episodes she is on coumadin will obtain basic labs, viral panel and CTA given the mild hemoptysis to evaluate for any bleeding sites/mass/VTE/infection Differential Diagnosis Differential Diagnoses: The differential diagnosis associated with the presentation includes pneumonia, bronchitis, mass, viral syndrome VTE less likely Admission/Observation Consideration of admission/observation: Escalation of care including admission/observation considered no further hemoptysis since arrival VS stable, H/H stable INR 1.6 observed for 5 hours and 40 minutes and no repeat events of hemoptysis Lab Data [facility] Lab Attestation statement: I reviewed the patient's lab results. 09/10/23 23:57 09/10/23 23:57 Labs: Lab Results 09/10/23 Range/Units 23:57 WBC 8.4 (4.8-10.8) X10*3/uL RBC 4.94 (4.20-5.50) X10*6/uL Hgb 13.8 (12.0-16.0) g/dl Hct 41.0 (37.0-47.0) % MCV 83.0 (80.0-98.0) fL MCH 27.9 (27.0-33.0) pg MCHC 33.7 (31.0-35.0) g/dl RDW 14.0 (11.0-16.0) % Plt Count 197 (160-400) X10*3/uL MPV 12.0 (9.4-12.3) fL Absolute Nucleated RBC 0.000 (0.0-0.012) X10*3/uL Nucleated RBC % (auto) 0.0 (0.0-0.2) /100WBC PT 19.9 H (11.1-13.3) SEC INR 1.6 H (0.9-1.1) Sodium 137 (135-145) mmol/L Potassium 3.8 (3.3-5.1) mmol/L Chloride 105 (96-108) mmol/L Carbon Dioxide 22 (22-29) mmol/L Anion Gap 14 (12-20) BUN 20 H (9-16) mg/dL Creatinine 1.06 (0.5-1.4) mg/dL Estim Creat Clear Calc 75.5 Estimated GFR 52 Random Glucose 115 (60-115) mg/dL Calcium 9.1 D (8.4-10.2) mg/dL Total Bilirubin 0.7 (0.0-1.0) mg/dL AST 18 (5-31) U/L ALT 16 (0-31) U/L Alkaline Phosphatase 90 (39-117) U/L Troponin I High Sens 5.6 (<3.5-17.0) ng/L Total Protein 7.1 (6.5-8.0) g/dL Albumin 3.7 (3.5-5.0) g/dL Influenza Type A (PCR) NEGATIVE (Negative) Influenza Type B (PCR) NEGATIVE (Negative) RSV RNA Qual (PCR) NEGATIVE (Negative) SARS-CoV-2 RNA (RT-PCR) NEGATIVE (Negative) Independent Interpretation I performed an independent interpretation of an: EKG and CT Scan (LL pneumonia) Interpretation: Rate: 77 Rhythm: NSR [place]: normal Normal P waves. Normal SHARON. Normal QRS complex. ST T wave : normal no AKIL qTC: 423 prior studies: no acute ischemia The study has been interpreted contemporaneously by me. . Radiology Impression Discussion of test interpretation with radiology: I have reviewed the radiologist's reading. External Record Review External record reviewed: Inpatient record Prescription Management I considered prescription management with: Antibiotic and Other Discharge Plan Discharge Clinical Impression: Cough with hemoptysis Pneumonia Qualifiers: Pneumonia type: due to unspecified organism Laterality: left Lung location: l ower lobe of lung Qualified Code(s): J18.9 - Pneumonia, unspecified organism Patient Disposition: Home, Self-Care Instructions: Hemoptysis (ED), Pneumonia (ED) Additional Instructions: INR 1.6 return for any worsening bleeding, clots, increased pain, difficulty breathing or any other concerns. you need to finish both antibiotics. follow up and monitor INR more than 6 stools a day is not normal seek CARE if this happens Prescriptions: New azithromycin 250 mg tablet 250 mg PO DAILY 4 Days Qty: 4 0RF Rx Instructions: start on day 2 of therapy cefuroxime axetil 500 mg tablet 500 mg PO BID 7 Days Qty: 14 0RF No Action (DME) blood-glucose meter [FreeStyle Lite Meter] Kit See Rx Instructions .Route Qty: 1 0RF Rx Instructions: As directed (DME) FreeStyle Lite Strips Strip See Rx Instructions .Route Qty: 100 3RF Rx Instructions: Use to check blood sugars twice daily citalopram 20 mg tablet 20 mg PO DAILY 90 Days Qty: 90 3RF (DME) lancets [BD Ultra Fine Lancets] 33 gauge misc See Rx Instructions .Route Qty: 100 3RF Rx Instructions: Use to check blood sugar twice daily lisinopril 20 mg tablet 20 mg PO DAILY 90 Days Qty: 90 3RF albuterol sulfate 90 mcg/actuation HFA aerosol inhaler 2 puff PO Q6H PRN (Reason: Wheezing) 30 Days Qty: 8.5 0RF (DME) pen needle, diabetic [BD Ginny 2nd Gen Pen Needle] 32 gauge x 5/32 needle See Rx Instructions .ROUTE .MEDSUPPLY Qty: 100 3RF Rx Instructions: BID PRN warfarin 10 mg tablet 10 mg PO .COMPLEX Qty: 96 0RF Protocol: Dose Management Condition: Monday (Week One) Dose/Route: 10 mg Instruction: 1 x 10 mg tablet Condition: Monday Dose/Route: 10 mg Instruction: 1 x 10 mg tablet Condition: Monday Dose/Route: 10 mg Instruction: 1 x 10 mg tablet Condition: Monday Dose/Route: 10 mg Instruction: 1 x 10 mg tablet Condition: Dose/Route: 10 mg Instruction: 1 x 10 mg tablet Condition: Monday Dose/Route: 10 mg Instruction: 1 x 10 mg tablet Condition: Monday Dose/Route: 10 mg Instruction: 1 x 10 mg tablet Condition: Monday (Week Two) Dose/Route: 10 mg Instruction: 1 x 10 mg tablet Condition: Monday Dose/Route: 10 mg Instruction: 1 x 10 mg tablet Condition: Monday Dose/Route: 10 mg Instruction: 1 x 10 mg tablet Condition: Monday Dose/Route: 10 mg Instruction: 1 x 10 mg tablet Condition: Dose/Route: 10 mg Instruction: 1 x 10 mg tablet Condition: Monday Dose/Route: 10 mg Instruction: 1 x 10 mg tablet Condition: Monday Dose/Route: 10 mg Instruction: 1 x 10 mg tablet Protocol Text: Adjustment Start Date: 09/07/23 INR Value: 2.3 INR Date: 08/24/23 Additional Instructions: REVIEW FOOD LIST WEEKLY, EAT A MIX OF FRUITS AND VEGETABLES Rx Instructions: 10 mg orally 5days/ 15mg x 2 days; omeprazole 20 mg capsule,delayed release(DR/EC) 20 mg PO ONCE 90 Days Qty: 90 0RF amoxicillin 500 mg capsule 500 mg PO Q8H 10 Days Qty: 30 0RF hydrochlorothiazide 12.5 mg capsule 12.5 mg PO DAILY Qty: 90 0RF insulin glargine [Lantus Solostar U-100 Insulin] 100 unit/mL (3 mL) insulin pen 60 unit subcut BID 90 Days Qty: 108 3RF metformin 1,000 mg tablet See Rx Instructions PO BID Rx Instructions: takes 500mg q hs Interventions: ED Discharge Assessment Last Done: 09/11/23 05:12 Discharge Date/Time: 09/11/23 05:18 Print Language: Occitan
[2023-09-11 00:15] LABS: INTERNATIONAL NORM RATIO 1.6 (0.9-1.1); Prothrombin Time 19.9 SEC (11.1-13.3)
[2023-09-11 00:22] LABS: Alanine Aminotransferase 16 U/L (0-31); Albumin Level 3.7 g/dL (3.5-5.0); Alkaline Phosphatase 90 U/L (39-117); Anion Gap 14 (12-20); Aspartate Amino Transferase 18 U/L (5-31); Bilirubin Total 0.7 mg/dL (0.0-1.0); Blood Urea Nitrogen 20 mg/dL (9-16); Calcium 9.1 mg/dL (8.4-10.2); Carbon Dioxide 22 mmol/L (22-29); Chloride 105 mmol/L (96-108); Creatinine Clr Calc Pharmacy 75.5; Estimated Glomerular Filt Rate 52; Glucose Random 115 mg/dL (60-115); Potassium 3.8 mmol/L (3.3-5.1); Sodium 137 mmol/L (135-145); Total Protein 7.1 g/dL (6.5-8.0)
[2023-09-11 00:31] LABS: Troponin-I High Sensitivity 5.6 ng/L (<3.5-17.0)
[2023-09-11 00:46] LABS: Influenza A PCR NEGATIVE (Negative); Influenza B PCR NEGATIVE (Negative); Resp Syncy Virus RNA Qual PCR NEGATIVE (Negative); SARS COV2 PCR INHOUSE NEGATIVE (Negative)
[2023-09-11] MEDS: iohexoL 350 MG/ML 100 ML INFUS..BTL IV (01:01)
[2023-09-11 01:23] VITALS: PULSE 80; RESP 16; O2SAT 97
[2023-09-11] MEDS: Albuterol/Iprat 2.5/0.5MG 3 ML AMPUL.NEB INHALE (01:23)
[2023-09-11] MEDS: guaiFEN/Codeine SF 200/20/10ML 10 ML LIQUID 5 ML PO (02:26)
[2023-09-11] MEDS: Acetaminophen 325 MG TABLET 650 MG PO (02:27)
[2023-09-11] MEDS: Azithromycin 500 MG TABLET PO (02:27)
[2023-09-11] MEDS: cefTRIAXone sodium 1 GM in 0.9 % Sodium Chloride 50 ML IV (02:27)
[2023-09-11 05:10] VITALS: BP 98/62; PULSE 66; RESP 16; TEMP 36.9; O2SAT 95
[2023-09-11 05:12] VITALS: BP 98/62; PULSE 66; RESP 16; TEMP 36.9; O2SAT 95
== END 2023-09-11 05:18 | disposition home or self-care (01) ==
PROVIDERS: Emergency Provider Emergency Medicine; PCP Internal Medicine
DX: J18.9 Pneumonia, unspecified organism (principal); R04.2 Hemoptysis; R07.89 Other chest pain; I10 Essential (primary) hypertension; M79.10 Myalgia, unspecified site; R05.9 Cough, unspecified; R50.9 Fever, unspecified; Z11.52 Encounter for screening for COVID-19; Z20.822 Contact with and (suspected) exposure to COVID-19; Z79.01 Long term (current) use of anticoagulants; Z86.718 Personal history of other venous thrombosis and embolism; Z87.891 Personal history of nicotine dependence
CPT/HCPCS: 0241U; 36415; 71275; 80053; 84484; 85027; 85610; 93005; 94640; 96365; 99285; J0696; Q9967

== ENCOUNTER → 2023-09-10 23:49 | Outpatient (BNV) | payer MEDICARE, SELFPAY | PROVIDERS: Emergency Provider Emergency Medicine; PCP Internal Medicine; Visit Provider Internal Medicine | DX: R07.89 Other chest pain (principal) | CPT/HCPCS: 93010 ==

== ENCOUNTER 2023-09-12 12:45 | Outpatient (AMB) | payer MEDICARE, SELFPAY ==
--- NOTE | 2023-09-12 12:53 | MHC.PC.OV ---
Vital Signs 09/12/23 12:54 Height 5 ft 7 in Weight 291 lb BMI 45.6 BP 110/70 Blood Pressure Location Rt brachial Position Sitting Pulse 66 Pulse Source Pulse Oximeter Pulse Oximetry (%) 95 Intake Visit Reasons: ED F/U~ Allergies medroxyprogesterone [Provera] Allergy (Intermediate, Verified 09/12/23 12:54) SKIN PEELING niacin [From NIASPAN EXTENDED-RELEASE] Allergy (Intermediate, Verified 09/12/23 12:54) facial flushing atorvastatin [From Lipitor] Allergy (Mild, Verified 09/12/23 12:54) MUSCLE ACHES, myalgia gemfibrozil [From Lopid] Allergy (Mild, Verified 09/12/23 12:54) MUSCLE ACHES fluconazole [From DIFLUCAN] Allergy (Unknown, Verified 09/12/23 12:54) PER H&P nitroglycerin [From Nitro-Dur] Adverse Reaction (Mild, Verified 09/12/23 12:54) LOW BLOOD PRESSURE Medication List - Last Reconciled 09/12/23 by Ricco Hill MD albuterol sulfate 90 mcg/actuation 2 puffs PO Q6H PRN 30 days amoxicillin 2,000 mg PO ONCE PRN azithromycin 250 mg PO DAILY 4 days blood sugar diagnostic (FreeStyle Lite Strips) Use to check blood sugars twice daily cefuroxime axetil 500 mg PO BID 7 days citalopram 20 mg PO DAILY 90 days FreeStyle Lite Meter (blood-glucose meter) As directed NS hydrochlorothiazide 12.5 mg PO DAILY insulin glargine (Lantus Solostar U-100 Insulin) 60 units (0.6 mL) subcut BID 90 days lancets (BD Ultra Fine Lancets) Use to check blood sugar twice daily lisinopril 20 mg PO DAILY 90 days metformin takes 500mg q hs omeprazole 20 mg PO ONCE 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, 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) BID PRN warfarin See Protocol 10 mg orally 5days/ 15mg x 2 days; Tobacco use date assessed: 09/12/23 Fall risk assessment: 1 Fall in past year Last assessed Fall Risk: 09/12/23 Dental Screening Dental Screen Date: 09/12/23 Did you have a dental visit in the last 12 months?: Yes Did you have a dental problem in the last 6 months where you did not have access to dental care?: No Was dental information given to patient?: Patient has dentist HPI ED F/U~ HPI Details Patient is 67-year-old female with a 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, diabetes mellitus, chronic kidney disease, obesity, hypertension, GERD presented to emergency room [facility] dated 09/11/2023 with a chief complaint of feeling sick with body aches and pains cough and feeling feverish, cough started 24 hours ago and she coughed up blood before she arrived in emergency room She remained stable in emergency room, H&H was stable and INR was 1.6 After observation for 5 hours and 40 minutes patient was discharged Her hemoglobin was 13.8 with hematocrit of 41.0 EKG showed rate of 77 beats per minute normal sinus rhythm no acute findings CTA showed no evidence of pulmonary embolism Posterior left lower lobe consolidation. Suspect pneumonia She was given script of azithromycin and cefuroxime 500 mg b.i.d. for 7 days She continued to cough with little bit of blood as well Patient have appointment with the [facility] in 2 days Meanwhile she is to continue with her baseline dose of Coumadin I have sent another course of azithromycin and cefuroxime to be continued for total of 14 days Patient will return in 2 weeks for follow-up [facility] Medical History Long-term insulin use Diabetes 1.5, managed as type 1 Surgical History History of revision of total replacement of right knee joint History of colonoscopy History of total left knee replacement (TKR) History of total right knee replacement (TKR) History of breast biopsy History of tonsillectomy Family History Father Type 2 diabetes mellitus Polymyalgia Mother Cancer of thyroid Sister Breast cancer Sister Leukemia Brother Diabetes mellitus HTN (hypertension) High cholesterol Social History Housing: House Alcohol intake: former Patient Tobacco Use Status: Former Tobacco user Tobacco use type: Cigarette Years Smoked: 4 years e-Cigarette/Vaping Use: Never Used Advance Directives Date on File: 03/05/20 Current occupational status: unemployed Cognitive needs: No Hearing needs: No Vision needs: Yes Female Reproductive History Menstrual Age of Menarche: 12 Questionnaire PHQ-9 Over the last 2 weeks, how often have you been bothered by any of the following problems? 1. Little interest or pleasure in doing things: not at all 2. Feeling down, depressed, or hopeless: not at all 3. Trouble falling or staying asleep, or sleeping too much: several days 4. Feeling tired or having little energy: several days 5. Poor appetite or overeating: not at all 6. Feeling bad about yourself - or that you are a failure or have let yourself or your family down: not at all 7. Trouble concentrating on things, such as reading the newspaper or watching television: not at all 8. Moving or speaking so slowly that other people could have noticed. Or the opposite - being so fidgety or restless that you have been moving around a lot more than usual: not at all 9. Thoughts that you would be better off or of hurting yourself in some way: not at all Total score: 2 Depression Screening Interpretation: Negative Depression Screening Done: Yes 57522 - PHQ-9 Billing: Yes Source: Developed by Drs. Roney Mitchell, Molly Duran, Earl Muhammad and colleagues, with an educational willem from [employer]. Thrive Questionnaire Date Thrive assessed: 09/12/23 I am a: Patient What is your living situation today?: I have a steady place to live Within the past 12 months, did the food you bought not last and you didn't have the money to get more?: Never true Within the past 12 months, did you worry whether your food would run out before you got money to buy more?: Never true Do you have trouble paying for medicines?: No Do you have trouble getting transportation to medical appointments?: No Do you have trouble paying your heating and electricity bill?: No Do you have trouble taking care of your child, family member or friend?: No Do you have trouble with day-to-day activities such as bathing, preparing meals, shopping, managing finances, etc.?: No Are you currently unemployed and looking for a job?: No Are you interested in more education?: No Please select the resources that you would like help with: None Currently or been in a relationship where the following occur: no concerns reported THRIVE Score: 0 AUDIT C Alcohol Use Questionnaire (AUDIT-C) 1. How often do you have a drink containing alcohol?: Never 3. How often do you have six or more drinks on one occasion?: Never Total Score: 0 Score Reviewed/Action Taken: Yes LEX-7 AMB Questionnaire LEX-7 Date LEX - 7 assessed: 09/12/23 Feeling nervous, anxious, or on edge: 0 = Not at all Not being able to stop or control worryin = Not at all Worrying too much about different things: 0 = Not at all Trouble relaxin = Not at all Being so restless that it is hard to sit still: 0 = Not at all Becoming easily annoyed or irritable: 0 = Not at all Feeling afraid as if something awful might happen: 0 = Not at all Total LEX-7 score (0-4 normal; 5-9 mild; 10-14 moderate; 15-21 severe): 0 Source: Developed by Drs. Roney Mitchell, Molly Duran, Earl Muhammad and colleagues, with an educational willem from [employer]. LEX-7 Assessment Billing LEX-7 Assessment Tool: LEX-7 Assessment 73731 Review of Systems Const Denies chills and Denies fever(s) ENT Denies epistaxis and Denies nasal discharge Card Denies chest pain GI Denies diarrhea and Denies nausea Skin/Breast Denies rash Neuro Reports no additional complaints Psych Reports no additional complaints Endo Reports no additional complaints Physical exam (Primary Care) Vital Signs: Last Vital Signs Pulse 66 09/12/23 12:54 BP 110/70 09/12/23 12:54 Pulse Ox 95 09/12/23 12:54 BMI result Body Mass Index 45.6 Tobacco/Smoking Status: Tobacco use Status Tobacco use date assessed 09/12/23 09/12/23 12:59 Patient Tobacco Use Status Former Tobacco user 09/12/23 12:53 Tobacco use type Cigarette 09/12/23 12:53 e-Cigarette/Vaping Use Never Used 09/12/23 12:53 PHQ-9: PHQ-9 Score PHQ-9: Total score 2 09/12/23 15:00 Depression Screening Interpretation: Negative Thrive Assessment: Date of Thrive Assessment Date Thrive assessed 09/12/23 09/12/23 12:59 Currently or been in a relationship where the following occur: no concerns reported Const General: cooperative, comfortable and no acute distress Orientation/consciousness: patient oriented x3 HENMT Head: Yes normocephalic Eyes General: appearance normal, both eyes and all related structures Neck Neck: Yes supple Resp Other: Rhonchi left lower base posteriorly Effort & Inspection: normal respiratory effort and no stridor Cardio Rhythm: regular rhythm Heart sounds: S1 normal heart sound present and S2 normal heart sound present Skin General skin exam: turgor normal Neuro General: patient oriented x3, tone normal and moves all extremities Extrem Right lower extremity: no edema Left lower extremity: no edema Assessment and Plan Assessment & Plan (1) LLL pneumonia: Code(s): J18.9 - Pneumonia, unspecified organism Qualifiers: Pneumonia type: due to unspecified organism Qualified Code(s): J18.9 - Pneumonia, unspecified organism (2) Coughing up blood: Code(s): R04.2 - Hemoptysis (3) Current use of anticoagulant therapy: Code(s): Z79.01 - [facility] (current) use of anticoagulants (4) Fatigue: Code(s): R53.83 - Other fatigue Qualifiers: Fatigue type: other Qualified Code(s): R53.83 - Other fatigue Plan Patient is 67-year-old female with a 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, diabetes mellitus, chronic kidney disease, obesity, hypertension, GERD presented to emergency room [facility] dated 09/11/2023 with a chief complaint of feeling sick with body aches and pains cough and feeling feverish, cough started 24 hours ago and she coughed up blood before she arrived in emergency room She remained stable in emergency room, H&H was stable and INR was 1.6 After observation for 5 hours and 40 minutes patient was discharged Her hemoglobin was 13.8 with hematocrit of 41.0 EKG showed rate of 77 beats per minute normal sinus rhythm no acute findings CTA showed no evidence of pulmonary embolism Posterior left lower lobe consolidation. Suspect pneumonia She was given script of azithromycin and cefuroxime 500 mg b.i.d. for 7 days She continued to cough with little bit of blood as well Patient have appointment with the Coumadin Clinic in 2 days Meanwhile she is to continue with her baseline dose of Coumadin I have sent another course of azithromycin and cefuroxime to be continued for total of 14 days Patient will return in 2 weeks for follow-up Orders: Orders XR chest 2V 4 Weeks J18.9 - Pneumonia, unspecified organism Medications: New azithromycin Take 2 tablets today then 1 daily 250 mg PO ONCE 6 tabs 0RF 5 days J06.9 - Acute upper respiratory infection, unspecified codeine-guaifenesin 10-200 mg/5 mL (Coditussin AC) 10 mL PO TID PRN 150 mL 0RF cough 10 days Refilled cefuroxime axetil 500 mg PO BID 14 tabs 0RF 7 days albuterol sulfate 90 mcg/actuation 2 puffs PO Q6H PRN 8.5 grams 0RF Wheezing 30 days Coding Level of Care Code Est Pt Level 5 (74569) Diagnoses Pneumonia of left lower lobe due to infectious organism J18.9 Pneumonia type: due to unspecified organism Coughing up blood R04.2 Current use of anticoagulant therapy Z79.01 Other fatigue R53.83 Fatigue type: other Additional Codes LEX-7 Assessment Billing - LEX-7 Assessment Tool: LEX-7 Assessment 16800 ([id number]) Time Spent (min) 40
[2023-09-12 12:54] VITALS: BP 110/70; PULSE 66; O2SAT 95; BMI 45.6
== END 2023-09-12 14:11 | disposition home or self-care (01) ==
PROVIDERS: Visit Provider Internal Medicine
DX: J18.9 Pneumonia, unspecified organism (principal); R04.2 Hemoptysis; Z79.01 Long term (current) use of anticoagulants; R53.83 Other fatigue
CPT/HCPCS: 99215

== ENCOUNTER 2023-09-14 11:00 | Outpatient (AMB) | payer MEDICARE, SELFPAY ==
[2023-09-14 11:10] LABS: ~PT, ~INR - Anti Coag Clinic 2.8 (0.9-1.1)
--- NOTE | 2023-09-14 11:31 | MHC.OFFVISCO ---
Intake Intake Visit Reasons: Anticoagulation Allergies medroxyprogesterone [Provera] Allergy (Intermediate, Verified 09/14/23 11:01) SKIN PEELING niacin [From NIASPAN EXTENDED-RELEASE] Allergy (Intermediate, Verified 09/14/23 11:01) facial flushing atorvastatin [From Lipitor] Allergy (Mild, Verified 09/14/23 11:01) MUSCLE ACHES, myalgia gemfibrozil [From Lopid] Allergy (Mild, Verified 09/14/23 11:01) MUSCLE ACHES fluconazole [From DIFLUCAN] Allergy (Unknown, Verified 09/14/23 11:01) PER H&P nitroglycerin [From Nitro-Dur] Adverse Reaction (Mild, Verified 09/14/23 11:01) LOW BLOOD PRESSURE Medication List - Last Reconciled 09/14/23 by Amee Quintero RN albuterol sulfate 90 mcg/actuation 2 puffs PO Q6H PRN 30 days amoxicillin 2,000 mg PO ONCE PRN azithromycin 250 mg PO DAILY 4 days azithromycin 250 mg PO ONCE 5 days blood sugar diagnostic (FreeStyle Lite Strips) Use to check blood sugars twice daily cefuroxime axetil 500 mg PO BID 7 days citalopram 20 mg PO DAILY 90 days codeine-guaifenesin 10-200 mg/5 mL (Coditussin AC) 10 mL PO TID PRN 10 days FreeStyle Lite Meter (blood-glucose meter) As directed NS hydrochlorothiazide 12.5 mg PO DAILY insulin glargine (Lantus Solostar U-100 Insulin) 60 units (0.6 mL) subcut BID 90 days lancets (BD Ultra Fine Lancets) Use to check blood sugar twice daily lisinopril 20 mg PO DAILY 90 days metformin takes 500mg q hs omeprazole 20 mg PO ONCE 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 PT.STATES THAT SHE IS FEELING A BIT BETTER TODAY. decreSE DOSE ON 09/14 TO 5MGM THEN RESUME USUAL DOSE AND FOLLOW-UP ON 09/17. WILL HAVE [facility] GOOD UNDERSTANDING OF DOSING INSTR. 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
== END 2023-09-14 14:34 | disposition home or self-care (01) ==
LOC: HO.ACS 11:00
PROVIDERS: PCP Internal Medicine; Visit Provider Internal Medicine
DX: Z79.01 Long term (current) use of anticoagulants (principal)

== ENCOUNTER → 2023-09-14 11:00 | Outpatient (BNVA) | payer MEDICARE, SELFPAY | PROVIDERS: PCP Internal Medicine; Visit Provider Internal Medicine | DX: I82.402 Acute embolism and thrombosis of unspecified deep veins of left lower extremity (principal); Z51.81 Encounter for therapeutic drug level monitoring; Z79.01 Long term (current) use of anticoagulants | CPT/HCPCS: 85610; 99211 ==

== ENCOUNTER 2023-09-21 11:09 | Outpatient (AMB) | payer MEDICARE, SELFPAY ==
[2023-09-21 11:21] LABS: Prothrombin Time Whole Bld POC 31.7 sec (11.1-13.5); ~PT, ~INR - Anti Coag Clinic 2.6 (0.9-1.1)
--- NOTE | 2023-09-21 11:27 | MHC.OFFVISCO ---
Intake Intake Visit Reasons: Anticoagulation Allergies medroxyprogesterone [Provera] Allergy (Intermediate, Verified 09/21/23 11:15) SKIN PEELING niacin [From NIASPAN EXTENDED-RELEASE] Allergy (Intermediate, Verified 09/21/23 11:15) facial flushing atorvastatin [From Lipitor] Allergy (Mild, Verified 09/21/23 11:15) MUSCLE ACHES, myalgia gemfibrozil [From Lopid] Allergy (Mild, Verified 09/21/23 11:15) MUSCLE ACHES fluconazole [From DIFLUCAN] Allergy (Unknown, Verified 09/21/23 11:15) PER H&P nitroglycerin [From Nitro-Dur] Adverse Reaction (Mild, Verified 09/21/23 11:15) LOW BLOOD PRESSURE Medication List - Last Reconciled 09/21/23 by Kathia Kennedy RN albuterol sulfate 90 mcg/actuation 2 puffs PO Q6H PRN 30 days amoxicillin 2,000 mg PO ONCE PRN blood sugar diagnostic (FreeStyle Lite Strips) Use to check blood sugars twice daily cefuroxime axetil 500 mg PO BID 7 days citalopram 20 mg PO DAILY 90 days codeine-guaifenesin 10-200 mg/5 mL (Coditussin AC) 10 mL PO TID PRN 10 days FreeStyle Lite Meter (blood-glucose meter) As directed NS hydrochlorothiazide 12.5 mg PO DAILY insulin glargine (Lantus Solostar U-100 Insulin) 60 units (0.6 mL) subcut BID 90 days lancets (BD Ultra Fine Lancets) Use to check blood sugar twice daily lisinopril 20 mg PO DAILY 90 days metformin takes 500mg q hs omeprazole 20 mg PO ONCE 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 Bleeding, bruising, clotting discussed Nutritional guidance given - DOES NOT HAVE USUAL APPETITE OR ENERGY TO COOK MUCH, HAVE GREENS OVER THE WEEKEND Dose: 10MG REST OF THIS WEEK 5MG MONDAY THEN RESUME USUAL DOSE 10MG DAILY F/U INR: 1 WEEK Patient verbalizes understanding of instructions given Anti-Coag Initial Assessment Social Hx Patient Tobacco Use Status: Former Tobacco user Tobacco use type: Cigarette alcohol intake: former Alcohol intake frequency: holidays/special occasions only Coding Level of Care Code Est Patient Level 1 Diagnoses Current use of anticoagulant therapy Z79.01 Results AMB INR Fingerstick AMB INR Fingerstick 2.6 Last Edit by Kathia Kennedy RN on 09/21/23 11:21 manual entry Assessment & Plan Assessment & Plan (1) Current use of anticoagulant therapy: 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
== END 2023-09-21 13:23 | disposition home or self-care (01) ==
LOC: HO.ACS 11:09
PROVIDERS: PCP Internal Medicine; Visit Provider Internal Medicine
DX: Z79.01 Long term (current) use of anticoagulants (principal)

== ENCOUNTER → 2023-09-21 11:09 | Outpatient (BNVA) | payer MEDICARE, SELFPAY | PROVIDERS: PCP Internal Medicine; Visit Provider Internal Medicine | DX: Z86.718 Personal history of other venous thrombosis and embolism (principal); Z79.01 Long term (current) use of anticoagulants; Z51.81 Encounter for therapeutic drug level monitoring | CPT/HCPCS: 85610; 99211 ==

== ENCOUNTER 2023-09-26 11:18 | Outpatient (AMB) | payer MEDICARE, SELFPAY ==
[2023-09-26 11:20] VITALS: BP 126/68; PULSE 71; O2SAT 94; BMI 46.1
--- NOTE | 2023-09-26 11:20 | MHC.PC.OV ---
Vital Signs 09/26/23 11:20 Height 5 ft 7 in Weight 294 lb 8 oz BMI 46.1 BP 126/68 Blood Pressure Location Lt brachial Position Sitting Pulse 71 Pulse Source Pulse Oximeter Pulse Oximetry (%) 94 Oxygen Delivery Method Room Air Intake Visit Reasons: 2 week follow up Allergies medroxyprogesterone [Provera] Allergy (Intermediate, Verified 09/26/23 11:21) SKIN PEELING niacin [From NIASPAN EXTENDED-RELEASE] Allergy (Intermediate, Verified 09/26/23 11:21) facial flushing atorvastatin [From Lipitor] Allergy (Mild, Verified 09/26/23 11:21) MUSCLE ACHES, myalgia gemfibrozil [From Lopid] Allergy (Mild, Verified 09/26/23 11:21) MUSCLE ACHES fluconazole [From DIFLUCAN] Allergy (Unknown, Verified 09/26/23 11:21) PER H&P nitroglycerin [From Nitro-Dur] Adverse Reaction (Mild, Verified 09/26/23 11:21) LOW BLOOD PRESSURE Medication List - Last Reconciled 09/26/23 by Ricco Hill MD albuterol sulfate 90 mcg/actuation 2 puffs PO Q6H PRN 30 days blood sugar diagnostic (FreeStyle Lite Strips) Use to check blood sugars twice daily citalopram 20 mg PO DAILY 90 days FreeStyle Lite Meter (blood-glucose meter) As directed NS hydrochlorothiazide 12.5 mg PO DAILY insulin glargine (Lantus Solostar U-100 Insulin) 60 units (0.6 mL) subcut BID 90 days lancets (BD Ultra Fine Lancets) Use to check blood sugar twice daily lisinopril 20 mg PO DAILY 90 days metformin takes 500mg q hs omeprazole 20 mg PO ONCE 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, 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) BID PRN warfarin See Protocol 10 mg orally 5days/ 15mg x 2 days; Tobacco use date assessed: 09/26/23 Fall risk assessment: No Falls in past year Last assessed Fall Risk: 09/26/23 Dental Screening Dental Screen Date: 09/26/23 Did you have a dental visit in the last 12 months?: No Did you have a dental problem in the last 6 months where you did not have access to dental care?: No Was dental information given to patient?: Patient has dentist HPI 2 week follow up HPI Details Patient came in for her 2 week follow-up appointment on left lower lobe pneumonia and also for regular follow-up appointment for other medical problems Is feeling better, finished with antibiotic Still having irritated cough which sometimes present with coughing fit, and once in a while she also spits up blood Patient is on chronic anticoagulant. But generally she is feeling better Patient says that she has not ready to go back to work until she has had x-ray end of this month Patient is insulin-dependent diabetic: And is due for hemoglobin A1c which came back at 8 Patient is currently on Lantus 75 units b.i.d. She also diabetic nephropathy, we are monitoring kidney functions allergies stable with generic Zyrtec, depression anxiety:? Patient is on? citalopram 20 mg, and is doing well blood pressure is stable with hydrochlorothiazide 12.5 mg and lisinopril 20 mg daily GERD is stable with omeprazole b.i.d. BMI is elevated patient is trying to lose weight f/u 3 M? ? ?labs are needed before visit [facility] Medical History Long-term insulin use Diabetes 1.5, managed as type 1 Surgical History History of revision of total replacement of right knee joint History of colonoscopy History of total left knee replacement (TKR) History of total right knee replacement (TKR) History of breast biopsy History of tonsillectomy Family History Father Type 2 diabetes mellitus Polymyalgia Mother Cancer of thyroid Sister Breast cancer Sister Leukemia Brother Diabetes mellitus HTN (hypertension) High cholesterol Social History Housing: House Alcohol intake: former Patient Tobacco Use Status: Former Tobacco user Tobacco use type: Cigarette Years Smoked: 4 years e-Cigarette/Vaping Use: Never Used Advance Directives Date on File: 03/05/20 Current occupational status: unemployed Cognitive needs: No Hearing needs: No Vision needs: Yes Female Reproductive History Menstrual Age of Menarche: 12 Questionnaire Thrive Questionnaire Date Thrive assessed: 09/12/23 AUDIT C Alcohol Use Questionnaire (AUDIT-C) 1. How often do you have a drink containing alcohol?: Never 3. How often do you have six or more drinks on one occasion?: Never Total Score: 0 Score Reviewed/Action Taken: Yes LEX-7 AMB Questionnaire LEX-7 Date LEX - 7 assessed: 09/12/23 Source: Developed by Drs. Roney Mitchell, Molly Duran, Earl Muhammad and colleagues, with an educational willem from [employer]. Review of Systems Const Denies chills and Denies fever(s) ENT Denies epistaxis and Denies nasal discharge Card Denies chest pain GI Denies diarrhea and Denies nausea Skin/Breast Denies rash Neuro Reports no additional complaints Psych Reports no additional complaints Endo Reports no additional complaints Physical exam (Primary Care) Vital Signs: Last Vital Signs Pulse 71 09/26/23 11:20 BP 126/68 09/26/23 11:20 Pulse Ox 94 09/26/23 11:20 Oxygen Delivery Method Room Air 09/26/23 11:20 BMI result Body Mass Index 46.1 Tobacco/Smoking Status: Tobacco use Status Tobacco use date assessed 09/26/23 09/26/23 11:28 Patient Tobacco Use Status Former Tobacco user 09/26/23 11:28 Tobacco use type Cigarette 09/26/23 11:28 e-Cigarette/Vaping Use Never Used 09/26/23 11:28 Thrive Assessment: Date of Thrive Assessment Date Thrive assessed 09/12/23 09/26/23 11:28 Const General: cooperative, comfortable and no acute distress Orientation/consciousness: patient oriented x3 HENMT Head: Yes normocephalic Eyes General: appearance normal, both eyes and all related structures Neck Neck: Yes supple Resp Effort & Inspection: normal respiratory effort, able to speak in complete sentences, no cough and no stridor Auscultation: clear to auscultation bilaterally Cardio Rhythm: regular rhythm Heart sounds: S1 normal heart sound present and S2 normal heart sound present Skin General skin exam: turgor normal Neuro General: patient oriented x3, tone normal and moves all extremities Extrem Right lower extremity: no edema Left lower extremity: no edema Results AMB Hemoglobin A1c AMB Hemoglobin A1c 8 % Last Edit by Lavon Romo MA on 09/26/23 12:09 AMB Urinalysis, Automated UA Leukoctes 0 Rayshawn/uL Last Edit by Lavon Romo MA on 09/26/23 12:11 UA Nitrite Negative Last Edit by Lavon Romo MA on 09/26/23 12:11 UA Urobilinogen 0.2 mg/dL Last Edit by Lavon Romo MA on 09/26/23 12:11 UA Protein 30 mg/dL Last Edit by Lavon Romo MA on 09/26/23 12:11 UA pH 6.0 Last Edit by Lavon Romo MA on 09/26/23 12:11 UA Blood 0 Jb/uL Last Edit by Lavon Romo MA on 09/26/23 12:11 UA Specific [place] 1,020 Last Edit by Lavon Romo MA on 09/26/23 12:11 UA Ketone Negative Last Edit by Lavon Romo MA on 09/26/23 12:11 UA Bilirubin 0 mg/dL Last Edit by Lavon Romo MA on 09/26/23 12:11 UA Glucose 0 mg/dL Last Edit by Lavon Romo MA on 09/26/23 12:11 Results Reviewed Results Reviewed: Laboratory Last Values Hgb A1c (Clinic) 8 % (4.0-6.0) H 09/26/23 12:08 Urine pH (Auto) 6.0 09/26/23 12:09 Specific [place] (Auto) 1,020 09/26/23 12:09 Urine Protein (Auto) 30 mg/dL 09/26/23 12:09 Glucose (UA)(Auto) 0 mg/dL 09/26/23 12:09 Urine Ketones (Auto) Negative 09/26/23 12:09 Urine Blood (Auto) 0 Jb/uL 09/26/23 12:09 Urine Nitrite (Auto) Negative 09/26/23 12:09 Urine Bilirubin (Auto) 0 mg/dL 09/26/23 12:09 Urine Urobilinogen (Auto) 0.2 mg/dL 09/26/23 12:09 Leukocyte Esterase (Auto) 0 Rayshawn/uL 09/26/23 12:09 Assessment and Plan Assessment & Plan (1) LLL pneumonia: Code(s): J18.9 - Pneumonia, unspecified organism Qualifiers: Pneumonia type: due to unspecified organism Qualified Code(s): J18.9 - Pneumonia, unspecified organism (2) Coughing up blood: Code(s): R04.2 - Hemoptysis (3) Diabetes 1.5, managed as type 1: Code(s): E13.9 - Other specified diabetes mellitus without complications (4) Long-term insulin use: Code(s): Z79.4 - 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 insulin (5) Chronic GERD: Code(s): K21.9 - Gastro-esophageal reflux disease without esophagitis (6) Diabetic nephropathy: Code(s): E11.21 - Type 2 diabetes mellitus with diabetic nephropathy Qualifiers: Diabetes mellitus type: due to underlying condition Qualified Code(s): E08.21 - Diabetes mellitus due to underlying condition with diabetic nephropathy (7) Morbid obesity: Code(s): E66.01 - Morbid (severe) obesity due to excess calories (8) Hypertension, essential: Code(s): I10 - Essential (primary) hypertension (9) Environmental allergies: Code(s): Z91.09 - Other allergy status, other than to drugs and biological substances (10) Anxiety and depression: Code(s): F41.9 - Anxiety disorder, unspecified; F32.9 - Major depressive disorder, single episode, unspecified Plan Patient came in for her 2 week follow-up appointment on left lower lobe pneumonia and also for regular follow-up appointment for other medical problems Is feeling better, finished with antibiotic Still having irritated cough which sometimes present with coughing fit, and once in a while she also spits up blood Patient is on chronic anticoagulant. But generally she is feeling better Patient says that she has not ready to go back to work until she has had x-ray end of this month Patient is insulin-dependent diabetic: And is due for hemoglobin A1c which came back at 8 Patient is currently on Lantus 75 units b.i.d. She also diabetic nephropathy, we are monitoring kidney functions allergies stable with generic Zyrtec, depression anxiety:? Patient is on? citalopram 20 mg, and is doing well blood pressure is stable with hydrochlorothiazide 12.5 mg and lisinopril 20 mg daily GERD is stable with omeprazole b.i.d. BMI is elevated patient is trying to lose weight f/u 3 M? ? 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, Z91.09 - Other allergy status, other than to drugs and biological substances Hemoglobin A1c 3 Months E08.21 - Diabetes mellitus due to underlying condition with diabetic nephropathy, E13.9 - Other specified diabetes mellitus without complications, E66.01 - Morbid (severe) obesity due to excess calories, F32.9 - Major depressive disorder, single episode, unspecified, F41.9 - Anxiety disorder, unspecified, I10 - Essential (primary) hypertension, K21.9 - Gastro-esophageal reflux disease without esophagitis, Z79.4 - 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, Z91.09 - Other allergy status, other than to drugs and biological substances Microalbumin, Random (w Creat) 3 Months E08.21 - Diabetes mellitus due to underlying condition with diabetic nephropathy, E13.9 - Other specified diabetes mellitus without complications, E66.01 - Morbid (severe) obesity due to excess calories, F32.9 - Major depressive disorder, single episode, unspecified, F41.9 - Anxiety disorder, unspecified, I10 - Essential (primary) hypertension, J18.9 - Pneumonia, unspecified organism, K21.9 - Gastro-esophageal reflux disease without esophagitis, R04.2 - Hemoptysis, Z79.4 - FDC (current) use of insulin, Z91.09 - Other allergy status, other than to drugs and biological substances Complete Blood Count Auto Diff 3 Months E08.21 - Diabetes mellitus due to underlying condition with diabetic nephropathy, E13.9 - Other specified diabetes mellitus without complications, E66.01 - Morbid (severe) obesity due to excess calories, F32.9 - Major depressive disorder, single episode, unspecified, F41.9 - Anxiety disorder, unspecified, I10 - Essential (primary) hypertension, J18.9 - Pneumonia, unspecified organism, K21.9 - Gastro-esophageal reflux disease without esophagitis, R04.2 - Hemoptysis, Z79.4 - FDC (current) use of insulin, Z91.09 - Other allergy status, other than to drugs and biological substances Comprehensive [place]. Panel Fast 3 Months E08.21 - Diabetes mellitus due to underlying condition with diabetic nephropathy, E13.9 - Other specified diabetes mellitus without complications, E66.01 - Morbid (severe) obesity due to excess calories, F32.9 - Major depressive disorder, single episode, unspecified, F41.9 - Anxiety disorder, unspecified, I10 - Essential (primary) hypertension, J18.9 - Pneumonia, unspecified organism, K21.9 - Gastro-esophageal reflux disease without esophagitis, R04.2 - Hemoptysis, Z79.4 - FDC (current) use of insulin, Z91.09 - Other allergy status, other than to drugs and biological substances Coding Level of Care Code Est Pt Level 4 (91515) Diagnoses Pneumonia of left lower lobe due to infectious organism J18.9 Pneumonia type: due to unspecified organism Coughing up blood R04.2 Diabetes 1.5, managed as type 1 E13.9 Long-term insulin use Z79.4 Chronic GERD K21.9 Diabetic nephropathy associated with diabetes mellitus due to underlying condition E08.21 Diabetes mellitus type: due to underlying condition Morbid obesity E66.01 Hypertension, essential I10 Environmental allergies Z91.09 Anxiety and depression F41.9; F32.9
== END 2023-09-26 12:06 | disposition home or self-care (01) ==
PROVIDERS: PCP Internal Medicine; Visit Provider Internal Medicine
DX: J18.9 Pneumonia, unspecified organism (principal); Z79.4 Long term (current) use of insulin; E66.01 Morbid (severe) obesity due to excess calories; Z68.42 Body mass index [BMI] 45.0-49.9, adult; E08.21 Diabetes mellitus due to underlying condition with diabetic nephropathy; R04.2 Hemoptysis; K21.9 Gastro-esophageal reflux disease without esophagitis; I10 Essential (primary) hypertension; Z91.09 Other allergy status, other than to drugs and biological substances; F41.9 Anxiety disorder, unspecified; F32.9 Major depressive disorder, single episode, unspecified
CPT/HCPCS: 99214

== ENCOUNTER 2023-09-28 11:25 | Outpatient (AMB) | payer MEDICARE, SELFPAY ==
[2023-09-28 11:32] LABS: Prothrombin Time Whole Bld POC 24.7 sec (11.1-13.5); ~PT, ~INR - Anti Coag Clinic 2.1 (0.9-1.1)
--- NOTE | 2023-09-28 11:36 | MHC.OFFVISCO ---
Intake Intake Visit Reasons: Anticoagulation Allergies medroxyprogesterone [Provera] Allergy (Intermediate, Verified 09/28/23 11:27) SKIN PEELING niacin [From NIASPAN EXTENDED-RELEASE] Allergy (Intermediate, Verified 09/28/23 11:27) facial flushing atorvastatin [From Lipitor] Allergy (Mild, Verified 09/28/23 11:27) MUSCLE ACHES, myalgia gemfibrozil [From Lopid] Allergy (Mild, Verified 09/28/23 11:27) MUSCLE ACHES fluconazole [From DIFLUCAN] Allergy (Unknown, Verified 09/28/23 11:27) PER H&P nitroglycerin [From Nitro-Dur] Adverse Reaction (Mild, Verified 09/28/23 11:27) LOW BLOOD PRESSURE Medication List - Last Reconciled 09/28/23 by Bernadette Hutchinson, RN albuterol sulfate 90 mcg/actuation 2 puffs PO Q6H PRN 30 days blood sugar diagnostic (FreeStyle Lite Strips) Use to check blood sugars twice daily citalopram 20 mg PO DAILY 90 days FreeStyle Lite Meter (blood-glucose meter) As directed NS hydrochlorothiazide 12.5 mg PO DAILY insulin glargine (Lantus Solostar U-100 Insulin) 60 units (0.6 mL) subcut BID 90 days lancets (BD Ultra Fine Lancets) Use to check blood sugar twice daily lisinopril 20 mg PO DAILY 90 days metformin takes 500mg q hs omeprazole 20 mg PO ONCE 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, 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) BID PRN warfarin See Protocol 10 mg orally 5days/ 15mg x 2 days; Nursing Note Amb to [facility] feeling better s/p pneumonia Medications and supplements reviewed, antibiotic completed 09/24 No other changes in health, diet, medications, or supplements, sts she had some hemoptysis with coughing, none the last couple days PCP is aware, F/U CXR end of month Denies any other signs and symptoms of bleeding or bruising or clotting. INR 2.1 in therapeutic range Dose: Continue usual 10mg daily ( dose decreased to 5mg 09/23 only in anticipation of delayed raise from antibiotic continue with good greens every other day F/U INR:1 week Patient verbalizes understanding of instructions given Anti-Coag Initial Assessment Social Hx Patient Tobacco Use Status: Former Tobacco user Tobacco use type: Cigarette alcohol intake: former Alcohol intake frequency: holidays/special occasions only Coding Level of Care Code Est Patient Level 1 Diagnoses Current use of anticoagulant therapy Z79.01 Time Spent (min) 15 Assessment & Plan Assessment & Plan (1) Current use of anticoagulant therapy: Code(s): Z79.01 - nursing home (current) use of anticoagulants Category: Medical
== END 2023-09-28 11:44 | disposition home or self-care (01) ==
LOC: HO.ACS 11:25
PROVIDERS: PCP Internal Medicine; Visit Provider Internal Medicine
DX: Z79.01 Long term (current) use of anticoagulants (principal)

== ENCOUNTER → 2023-09-28 11:25 | Outpatient (BNVA) | payer MEDICARE, SELFPAY | PROVIDERS: PCP Internal Medicine; Visit Provider Internal Medicine | DX: Z86.718 Personal history of other venous thrombosis and embolism (principal); Z51.81 Encounter for therapeutic drug level monitoring; Z79.01 Long term (current) use of anticoagulants | CPT/HCPCS: 85610; 99211 ==

== ENCOUNTER 2023-09-29 16:04 | Outpatient (REF) | payer MEDICARE, SELFPAY ==
--- NOTE | ~2023-09-29 | MM_ITS ---
EXAMINATION: MM SCREENING DIGITAL BREAST TOMOSYNTHESIS, BILATERAL CLINICAL INFORMATION: Screening. Asymptomatic. COMPARISON: Mammography: This study is compared with prior exams dating back to 2018. TECHNIQUE: Digital breast tomosynthesis is performed in both the craniocaudal and mediolateral oblique views along with computer-aided detection (CAD). Synthesized 2D images are generated from the tomosynthesis. FINDINGS: The breasts are almost entirely fatty (ACR BI-RADS breast composition Category a). There are no significant masses, abnormal calcifications, or other abnormalities. There is a tissue marker present in the superior aspect of the left breast from prior benign percutaneous biopsy. MM/MM tomosynthesis screening BI IMPRESSION: No mammographic evidence of malignancy. ASSESSMENT: BI-RADS BI-RADS 1 - Negative RECOMMENDATION: Routine annual mammography screening. 1 year F/U This examination should not preclude the clinical evaluation of a suspicious palpable abnormality. This patient's information was entered into a reminder system with a target due date for their next mammogram.
== END 2023-09-29 16:05 | disposition home or self-care (01) ==
LOC: HO.MAMMO 16:04
PROVIDERS: PCP Internal Medicine; Visit Provider Internal Medicine
DX: Z12.31 Encounter for screening mammogram for malignant neoplasm of breast (principal)
CPT/HCPCS: 77063; 77067

== ENCOUNTER → 2023-09-29 16:30 | Outpatient (BNV) | payer MEDICARE, SELFPAY | PROVIDERS: PCP Internal Medicine; Visit Provider Radiology Diagnostic Radiology | DX: Z12.31 Encounter for screening mammogram for malignant neoplasm of breast (principal) | CPT/HCPCS: 77063; 77067 ==

== ENCOUNTER 2023-10-05 10:50 | Outpatient (AMB) | payer MEDICARE, SELFPAY ==
--- NOTE | 2023-10-05 11:08 | MHC.OFFVISCO ---
Intake Intake Visit Reasons: Anticoagulation Allergies medroxyprogesterone [Provera] Allergy (Intermediate, Verified 10/05/23 11:03) SKIN PEELING niacin [From NIASPAN EXTENDED-RELEASE] Allergy (Intermediate, Verified 10/05/23 11:03) facial flushing atorvastatin [From Lipitor] Allergy (Mild, Verified 10/05/23 11:03) MUSCLE ACHES, myalgia gemfibrozil [From Lopid] Allergy (Mild, Verified 10/05/23 11:03) MUSCLE ACHES fluconazole [From DIFLUCAN] Allergy (Unknown, Verified 10/05/23 11:03) PER H&P nitroglycerin [From Nitro-Dur] Adverse Reaction (Mild, Verified 10/05/23 11:03) LOW BLOOD PRESSURE Medication List - Last Reconciled 10/05/23 by Shruthi Quinones RN albuterol sulfate 90 mcg/actuation 2 puffs PO Q6H PRN 30 days blood sugar diagnostic (FreeStyle Lite Strips) Use to check blood sugars twice daily citalopram 20 mg PO DAILY 90 days FreeStyle Lite Meter (blood-glucose meter) As directed NS hydrochlorothiazide 12.5 mg PO DAILY insulin glargine (Lantus Solostar U-100 Insulin) 60 units (0.6 mL) subcut BID 90 days lancets (BD Ultra Fine Lancets) Use to check blood sugar twice daily lisinopril 20 mg PO DAILY 90 days metformin takes 500mg q hs omeprazole 20 mg PO ONCE 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, 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) BID PRN warfarin 10 mg See Protocol PO DAILY Nursing Note INR 1.9-? out of therapeutic range of 2-3 Medications and supplements reviewed Patient status: s/p pneumonia, finished antibiotics on 09/25/23 Medications or supplements: no changes Diet: improved Denies any signs and symptoms of bleeding or clotting or unusual bruising Bleeding, bruising, clotting discussed Nutritional guidance given: no greens for 2 days, eat reds to raise Dose: 15mg today then 10mg x 7 F/U INR Date : 1 week? Patient verbalizing understanding of instructions given. Anti-Coag Initial Assessment Social Hx Patient Tobacco Use Status: Former Tobacco user Tobacco use type: Cigarette alcohol intake: former Alcohol intake frequency: holidays/special occasions only Coding Level of Care Code Est Patient Level 1 Diagnoses Current use of anticoagulant therapy Z79.01 Assessment & Plan Assessment & Plan (1) Current use of anticoagulant therapy: Code(s): Z79.01 - retirement (current) use of anticoagulants Category: Medical Medications: Changed From warfarin See Protocol 10 mg orally 5days/ 15mg x 2 days; 96 tabs 0RF To warfarin 10 mg See Protocol PO DAILY
[2023-10-05 11:10] LABS: Prothrombin Time Whole Bld POC 23.1 sec (11.1-13.5); ~PT, ~INR - Anti Coag Clinic 1.9 (0.9-1.1)
== END 2023-10-05 11:17 | disposition home or self-care (01) ==
LOC: HO.ACS 10:50
PROVIDERS: PCP Internal Medicine; Visit Provider Internal Medicine
DX: Z79.01 Long term (current) use of anticoagulants (principal)

== ENCOUNTER → 2023-10-05 10:50 | Outpatient (BNVA) | payer MEDICARE, SELFPAY | PROVIDERS: PCP Internal Medicine; Visit Provider Internal Medicine | DX: Z86.718 Personal history of other venous thrombosis and embolism (principal); Z79.01 Long term (current) use of anticoagulants; Z51.81 Encounter for therapeutic drug level monitoring | CPT/HCPCS: 85610; 99211 ==

== ENCOUNTER 2023-10-10 09:31 | Emergency (ER) | payer MEDICARE, SELFPAY ==
--- NOTE | ~2023-10-10 | US_ITS ---
EXAMINATION: US VENOUS WITH DOPPLER UPPER EXTREMITY, LEFT CLINICAL INFORMATION: Left hand pain and discoloration COMPARISON: None available. TECHNIQUE: Ultrasound of the upper extremity is performed using compression sonography and color and pulse Doppler flow with assessment of augmentation of flow. There is also imaging and Doppler assessment of the jugular and subclavian veins. Spectral analysis with color-flow imaging is performed. FINDINGS: Respiratory variation and normal compression throughout the upper extremity including the brachial, basilic, cephalic and radial and ulnar veins. There is normal flow in the internal jugular, subclavian and axillary veins. There is no visible deep or superficial thrombophlebitis. No obvious effusion is seen at the elbow. US/US venous duplex UE LT IMPRESSION: No DVT demonstrated in the left upper extremity.
[2023-10-10 10:15] VITALS: BP 145/69; PULSE 18; RESP 18; TEMP 36.4; O2SAT 94; BMI 46.1
--- NOTE | 2023-10-10 10:53 | ED_ITS ---
HPI - Extremity Problem General Chief complaint: Extremity Injury, Upper Stated complaint: hand pain, possible bloodclot ? Time Seen by Provider: 10/10/23 10:51 Source: patient Mode of arrival: ambulatory Limitations: no limitations History of Present Illness ED Provider: Consuelo Reynaga NP HPI Narrative: Patient is a 67-year-old female with history of DVT on warfarin, DM, CKD, obesity, HTN, GERD presenting to the ED with complaint of pain and bruising to left hand and wrist for the past two weeks. She denies any known injury or trauma. Was seen at urgent care, had x-rays of wrist and hand which were both negative. Given her history of DVTs, was advised to come to ED to rule out DVT to left arm. Has been taking Tylenol with little improvement. Denies numbness or tingling. Reports decreased strength in hand due to pain. Denies chest pain, palpitations, dyspnea. Has been having INR monitored more frequently recently as she was being treated for pneumonia. MD Complaint: extremity pain Onset (ago): week(s) Pain Consistency: constant Location: left and upper extremity Quality: aching Relieving factors: nothing Exacerbating factors: weight bearing Associated symptoms: denies other symptoms Context: history of DVT Related Data Home Medications ?Medication ?Instructions ?Recorded ?Confirmed metformin 1,000 mg tablet See Rx Instructions PO BID 08/24/23 09/28/23 warfarin 10 mg tablet 10 mg PO DAILY 10/05/23 10/05/23 Previous Rx's ?Medication ?Instructions ?Recorded FreeStyle Lite Meter #1 ea 03/16/21 (blood-glucose meter) blood sugar diagnostic (FreeStyle #100 ea 11/14/22 Lite Strips) lancets 33 gauge (BD Ultra Fine #100 ea 11/14/22 Lancets) insulin glargine 100 unit/mL (3 60 unit (0.6 mL) subcut BID 90 01/24/23 mL) subcutaneous pen (Lan days #108 mL Solostar U-100 Insulin) pen needle, diabetic 32 gauge x #100 ea 05/22/23 (BD Ginny 2nd Gen Pen Needle) citalopram 20 mg tablet 20 mg PO DAILY 90 days #90 tabs 09/13/23 hydrochlorothiazide 12.5 mg capsule 12.5 mg PO DAILY #90 caps 09/13/23 lisinopril 20 mg tablet 20 mg PO DAILY 90 days #90 tabs 09/13/23 omeprazole 20 mg capsule,delayed 20 mg PO ONCE 90 days #90 caps 09/13/23 release albuterol sulfate 90 mcg/actuation 2 puff PO Q6H PRN Wheezing 30 days 10/10/23 aerosol inhaler #8.5 grams diclofenac sodium 1 % topical gel 2 g topical QID #100 grams 10/10/23 Allergies Allergy/AdvReac Type Severity Reaction Status Date / Time medroxyprogesterone [Provera] Allergy Intermediate SKIN Verified 10/10/23 10:16 PEELING niacin Allergy Intermediate facial Verified 10/10/23 10:16 [From NIASPAN flushing EXTENDED-RELEASE] atorvastatin [From Lipitor] Allergy Mild MUSCLE Verified 10/10/23 10:16 ACHES, myalgia gemfibrozil [From Lopid] Allergy Mild MUSCLE Verified 10/10/23 10:16 ACHES fluconazole [From DIFLUCAN] Allergy Unknown PER H&P Verified 10/10/23 10:16 nitroglycerin AdvReac Mild LOW BLOOD Verified 10/10/23 10:16 [From Nitro-Dur] PRESSURE Review of Systems 2 Review of Systems: As per HPI. Yes all other systems are reviewed and are negative Constitutional: Constitutional: Reports as per HPI PMFSH Past Medical History Medical History Long-term insulin use Diabetes 1.5, managed as type 1 Surgical History History of revision of total replacement of right knee joint History of colonoscopy History of total left knee replacement (TKR) History of total right knee replacement (TKR) History of breast biopsy History of tonsillectomy Family History Family History Father Type 2 diabetes mellitus Polymyalgia Mother Cancer of thyroid Sister Breast cancer Sister Leukemia Brother Diabetes mellitus HTN (hypertension) High cholesterol Social History Social History Housing: House Alcohol intake: former Patient Tobacco Use Status: Former Tobacco user Tobacco use type: Cigarette Years Smoked: 4 years e-Cigarette/Vaping Use: Never Used Advance Directives: No Advance Directives Information Provided: Yes Advance Directives Date on File: 03/05/20 Do you have a plan to hurt others: No Plan Current occupational status: unemployed Cognitive needs: No Hearing needs: No Vision needs: Yes Physical Exam 2 Vital Signs: Vital Signs: Last Vital Signs Temp 97.6 F 10/10/23 10:15 Pulse 18 L 10/10/23 10:15 Resp 18 10/10/23 10:15 BP 145/69 H 10/10/23 10:15 Pulse Ox 94 10/10/23 10:15 O2 Del Method Room Air 10/10/23 10:15 BMI result Body Mass Index 46.1 Vital signs have been reviewed and appear to be correct. Blood pressure elevated. Heart rate normal. Respiratory rate normal. Temperature normal. Oxygen saturation normal. Const: General: cooperative, healthy appearing and no acute distress O rientation/consciousness: oriented to person, oriented to place, oriented to time and patient oriented x3 Limitations: no limitations HEENT: Head: Yes normocephalic and Yes atraumatic Ears: external ears normal General nose exam: Normal external nose present Face and sinus: Yes face symmetric Mouth: oropharynx normal and moist mucous membranes Throat: Yes uvula midline Eyes: Pupils: Equal, round and reactive pupils present Neck: Neck: Yes normal visual inspection and Yes supple Resp: Effort & Inspection: normal respiratory effort and able to speak in complete sentences Auscultation: clear to auscultation bilaterally Cardio: Rate: regular rate Rhythm: regular rhythm Heart sounds: S1 normal heart sound present and S2 normal heart sound present GI: Palpation (GI): Soft to palpation and nontender Auscultation: n ormoactive bowel sounds : General: Yes no CVA tenderness Back/Spine/Pelvis: Back: no CVA tenderness Skin: General skin exam: elasticity normal and turgor normal Neuro: General: oriented to person, oriented to place, oriented to time, patient oriented x3, moves all extremities, no focal motor deficits and CN's II- XI intact bilaterally Cranial nerves: Yes Equal, round and reactive pupils present Cognition (Neuro): normal cognition Extrem: General: Yes full ROM, Yes no pedal edema and Yes no calf tenderness Left upper extremity: wrist forearm distal anterior Details: tenderness Location: of the volar wrist, normal ROM, ecchymosis forearm distal anterior - wrist distal volar Details: single (healing/yellow), normal vascular exam and radial pulse present; no unusual warmth and hand Details: normal capillary refill, neuromotor exam normal, neurosensory exam normal, tenderness Location: of the palm Location: centrally, normal ROM of fingers and ecchymosis Location: of the dorsal hand Location: over the 3rd metacarpal and over the 4th metacarpal and of the palm Location: centrally Elbow/forearm/wrist images: 1. healing ecchymosis 2. healing ecchymosis Hand/finger images: 1. healing ecchymosis Psych: Mental Status: mental status grossly normal Affect: normal affect Thought process: Normal thought process present Medical Decision Making Medical Decision Making MDM Narrative: Patient is a 67-year-old female with history of DVT on warfarin, DM, CKD, obesity, HTN, GERD presenting to the ED with complaint of pain and bruising to left hand and wrist for the past two weeks. On exam patient is awake, A+Ox3, VS WNL, afebrile, normal neurological exam without focal deficits, physical exam findings as above. Given reported symptoms and physical exam findings, initial differential includes contusion, DVT. Not consistent with cellulitis or vasculitis. Ultrasound notable for no DVT. My interpretation is in agreement with the radiologist's interpretation. Ecchymosis most consistent with contusion. Discussed with patient that when on warfarin, it is easy to cause bruising with minimal trauma/injury. Advised patient to apply warm compresses intermittently. Will send prescription for diclofenac gel. Advised patient to follow-up with the primary care provider. Return precautions discussed at bedside. Patient verbalized understanding of and agreement with plan. Differential Diagnosis Differential Diagnoses: The differential diagnosis associated with the presentation includes As per MDM. Independent Interpretation I performed an independent interpretation of an: Ultrasound Interpretation: No evidence of DVT left upper extremity Radiology Impression Discussion of test interpretation with radiology: I have reviewed the radiologist's reading. Radiologist Impression: US/US venous duplex UE LT IMPRESSION: No DVT demonstrated in the left upper extremity. External Record Review External record reviewed: Inpatient record, Office record and Outpatient record Prescription Management I considered prescription management with: Pain Medication Discharge Plan Discharge Clinical Impression: Contusion of multiple sites of left hand and wrist Patient Disposition: Home, Self-Care Instructions: Contusion in Adults (ED) Additional Instructions: You were evaluated in the emergency department today for pain and discoloration to your left wrist and hand. Your ultrasound did not show evidence of a DVT, also known as a blood clot. Your pain and discoloration are likely due to bruising. We recommend applying warm compresses to the areas for 10-15 minutes at a time several times daily. You are also being prescribed a topical pain relieving gel, please use this as prescribed. We recommend that you follow-up with your primary care provider this week. Return to the emergency department if you develop increasing areas of discoloration, new weakness, numbness, tingling, severe pain, fever or any other concerning symptoms. Prescriptions: New diclofenac sodium 1 % gel 2 g topical QID Qty: 100 0RF Rx Instructions: apply to single elbow, wrist or hand; for hand includes palm/fingers/back of hand No Action (DME) blood-glucose meter [FreeStyle Lite Meter] Kit See Rx Instructions .Route Qty: 1 0RF Rx Instructions: As directed (DME) FreeStyle Lite Strips Strip See Rx Instructions .Route Qty: 100 3RF Rx Instructions: Use to check blood sugars twice daily (DME) lancets [BD Ultra Fine Lancets] 33 gauge misc See Rx Instructions .Route Qty: 100 3RF Rx Instructions: Use to check blood sugar twice daily (DME) pen needle, diabetic [BD Ginny 2nd Gen Pen Needle] 32 gauge x 5/32 needle See Rx Instructions .ROUTE .MEDSUPPLY Qty: 100 3RF Rx Instructions: BID PRN hydrochlorothiazide 12.5 mg capsule 12.5 mg PO DAILY Qty: 90 0RF omeprazole 20 mg capsule,delayed release(DR/EC) 20 mg PO ONCE 90 Days Qty: 90 0RF citalopram 20 mg tablet 20 mg PO DAILY 90 Days Qty: 90 3RF lisinopril 20 mg tablet 20 mg PO DAILY 90 Days Qty: 90 3RF albuterol sulfate 90 mcg/actuation HFA aerosol inhaler 2 puff PO Q6H PRN (Reason: Wheezing) 30 Days Qty: 8.5 0RF insulin glargine [Lantus Solostar U-100 Insulin] 100 unit/mL (3 mL) insulin pen 60 unit subcut BID 90 Days Qty: 108 3RF metformin 1,000 mg tablet See Rx Instructions PO BID Rx Instructions: takes 500mg q hs warfarin 10 mg tablet 10 mg PO DAILY Protocol: Dose Management Condition: Monday (Week One) Dose/Route: 10 mg Instruction: 1 x 10 mg tablet Condition: Monday Dose/Route: 10 mg Instruction: 1 x 10 mg tablet Condition: Monday Dose/Route: 10 mg Instruction: 1 x 10 mg tablet Condition: Monday Dose/Route: 10 mg Instruction: 1 x 10 mg tablet Condition: Dose/Route: 15 mg Instruction: 1.5 x 10 mg tablets Condition: Monday Dose/Route: 10 mg Instruction: 1 x 10 mg tablet Condition: Monday Dose/Route: 10 mg Instruction: 1 x 10 mg tablet Condition: Monday (Week Two) Dose/Route: 10 mg Instruction: 1 x 10 mg tablet Condition: Monday Dose/Route: 10 mg Instruction: 1 x 10 mg tablet Condition: Monday Dose/Route: 10 mg Instruction: 1 x 10 mg tablet Condition: Monday Dose/Route: 10 mg Instruction: 1 x 10 mg tablet Condition: Dose/Route: 10 mg Instruction: 1 x 10 mg tablet Condition: Monday Dose/Route: 10 mg Instruction: 1 x 10 mg tablet Condition: Monday Dose/Route: 10 mg Instruction: 1 x 10 mg tablet Protocol Text: Adjustment Start Date: 10/05/23 INR Value: 1.9 INR Date: 10/05/23 Recheck Date: 10/12/23 Additional Instructions: take 15mg today, then cont 10mg x 7 no greens for 2 days, eat reds to raise Print Language: Jordanian
[2023-10-10 13:11] VITALS: BP 133/77; PULSE 86; RESP 20; TEMP 36.6; O2SAT 96
== END 2023-10-10 13:18 | disposition home or self-care (01) ==
PROVIDERS: Emergency Provider Emergency Medicine; PCP Internal Medicine
DX: R58 Hemorrhage, not elsewhere classified (principal); I12.9 Hypertensive chronic kidney disease with stage 1 through stage 4 chronic kidney disease, or unspecified chronic kidney disease; E13.22 Other specified diabetes mellitus with diabetic chronic kidney disease; N18.9 Chronic kidney disease, unspecified; Z86.718 Personal history of other venous thrombosis and embolism; Z79.01 Long term (current) use of anticoagulants; Z79.4 Long term (current) use of insulin; Z79.899 Other long term (current) drug therapy
CPT/HCPCS: 71046; 93971; 99283; 99284

== ENCOUNTER 2023-10-10 13:17 | Outpatient (REF) | payer MEDICARE, SELFPAY ==
--- NOTE | ~2023-10-10 | XR_ITS ---
EXAMINATION: XR CHEST CLINICAL INFORMATION: Pneumonia, unspecified organism COMPARISON: Chest radiograph 06/16/2022 TECHNIQUE: 2 views of the chest were obtained. FINDINGS: The lungs are well expanded. No focal consolidation, effusion, edema, or pneumothorax. The cardiomediastinal silhouette is within normal limits for technique and unchanged. No acute osseous abnormality. XR/XR chest 2V IMPRESSION: No acute pulmonary disease. Specifically, no focal consolidation to suggest pneumonia.
== END 2023-10-10 13:18 | disposition home or self-care (01) ==
LOC: HO.HMGCX 13:17
PROVIDERS: PCP Internal Medicine; Visit Provider Internal Medicine
DX: Z13.89 Encounter for screening for other disorder (principal)
CPT/HCPCS: 71046

== ENCOUNTER 2023-10-12 11:21 | Outpatient (AMB) | payer MEDICARE, SELFPAY ==
[2023-10-12 11:34] LABS: ~PT, ~INR - Anti Coag Clinic 2.8 (0.9-1.1)
--- NOTE | 2023-10-12 11:55 | MHC.OFFVISCO ---
Intake Intake Visit Reasons: Anticoagulation Allergies medroxyprogesterone [Provera] Allergy (Intermediate, Verified 10/12/23 11:26) SKIN PEELING niacin [From NIASPAN EXTENDED-RELEASE] Allergy (Intermediate, Verified 10/12/23 11:26) facial flushing atorvastatin [From Lipitor] Allergy (Mild, Verified 10/12/23 11:26) MUSCLE ACHES, myalgia gemfibrozil [From Lopid] Allergy (Mild, Verified 10/12/23 11:26) MUSCLE ACHES fluconazole [From DIFLUCAN] Allergy (Unknown, Verified 10/12/23 11:26) PER H&P nitroglycerin [From Nitro-Dur] Adverse Reaction (Mild, Verified 10/12/23 11:26) LOW BLOOD PRESSURE Medication List - Last Reconciled 10/12/23 by Kathia Kennedy RN albuterol sulfate 90 mcg/actuation 2 puffs PO Q6H PRN 30 days blood sugar diagnostic (FreeStyle Lite Strips) Use to check blood sugars twice daily citalopram 20 mg PO DAILY 90 days diclofenac sodium 1% 2 grams topical QID FreeStyle Lite Meter (blood-glucose meter) As directed NS hydrochlorothiazide 12.5 mg PO DAILY insulin glargine (Lantus Solostar U-100 Insulin) 60 units (0.6 mL) subcut BID 90 days lancets (BD Ultra Fine Lancets) Use to check blood sugar twice daily lisinopril 20 mg PO DAILY 90 days metformin takes 500mg q hs omeprazole 20 mg PO ONCE 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, 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) BID PRN warfarin 10 mg See Protocol PO DAILY Nursing Note INR 2.8? out of therapeutic range- feeling better post pnuemonia- but still fatigued after a few hours. Medications and supplements reviewed Patient status: Pt completed 1 antbx 2 weeks then another last week- both can increase risk of bleeding even with out warfarin. she stated that she had unusual bruising that gradually started about 2 weeks ago and progressively got worse because her hand was so swollen and bruised point that she went to the ER Monday - had ultra sound at [facility] and xray done at urgent care [facility] [place] - no fracture or clot found at time exams- Antibiotics per up to date can increase risk of bleeding- pt enc to f/u with MD- to call [facility] with any more bruising - may need to decrease warfarin or possibly hold if occurs again Enc to maybe f/u PCP and with Vascular or Ortho Medications or supplements: diclofenac topical prescribed - explained to pt that it can raise the INR - to use sparringly- and eat extra greens while using it Diet: Denies any signs and symptoms of bleeding or clotting or unusual bruising Bleeding, bruising, clotting discussed Nutritional guidance given: increase greens while using diclofenac - because it can raise the INR Dose: 10mg daily for now F/U INR Date : 5 days 10/16/23?? Patient verbalizing understanding of instructions given. 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
== END 2023-10-12 12:16 | disposition home or self-care (01) ==
LOC: HO.ACS 11:21
PROVIDERS: PCP Internal Medicine; Visit Provider Internal Medicine
DX: Z79.01 Long term (current) use of anticoagulants (principal)

== ENCOUNTER → 2023-10-12 11:21 | Outpatient (BNVA) | payer MEDICARE, SELFPAY | PROVIDERS: PCP Internal Medicine; Visit Provider Internal Medicine | DX: I82.402 Acute embolism and thrombosis of unspecified deep veins of left lower extremity (principal); Z51.81 Encounter for therapeutic drug level monitoring; Z79.01 Long term (current) use of anticoagulants | CPT/HCPCS: 85610; 99211 ==

== ENCOUNTER → 2023-10-16 15:34 | Outpatient (BNVA) | payer MEDICARE, SELFPAY | PROVIDERS: PCP Internal Medicine; Visit Provider Internal Medicine | DX: Z86.718 Personal history of other venous thrombosis and embolism (principal); Z79.01 Long term (current) use of anticoagulants; Z51.81 Encounter for therapeutic drug level monitoring | CPT/HCPCS: 85610; 99211 ==

== ENCOUNTER → 2023-10-26 10:58 | Outpatient (BNVA) | payer MEDICARE, SELFPAY | PROVIDERS: PCP Internal Medicine; Visit Provider Internal Medicine | DX: Z86.718 Personal history of other venous thrombosis and embolism (principal); Z79.01 Long term (current) use of anticoagulants; Z51.81 Encounter for therapeutic drug level monitoring | CPT/HCPCS: 85610; 99211 ==

== ENCOUNTER 2023-11-06 13:28 | Outpatient (AMB) | payer MEDICARE, SELFPAY ==
--- NOTE | 2023-11-06 13:38 | A.OFFVIS_ITS ---
Vital Signs 11/06/23 13:50 Height 5 ft 7 in Weight 286 lb 9.615 oz BMI 44.9 BP 120/72 Pulse 76 Intake Visit Reasons: T2DM/MAILBOX FULL Intake Note: New Patient present today to established treatment for Type 2 Diabetes Mellitus. Patient receives: Pharmacy Last Diabetic Eye exam: UTD, 10/05 - no retinopathy Last Podiatry Visit: overdue Random Glucose: 86mg/dl HgA1C: 7.9 % Property Claims Adjuster Required: No Accompanied by: Self / Same As Patient Allergies medroxyprogesterone [Provera] Allergy (Intermediate, Verified 11/06/23 13:44) SKIN PEELING niacin [From NIASPAN EXTENDED-RELEASE] Allergy (Intermediate, Verified 11/06/23 13:44) facial flushing atorvastatin [From Lipitor] Allergy (Mild, Verified 11/06/23 13:44) MUSCLE ACHES, myalgia gemfibrozil [From Lopid] Allergy (Mild, Verified 11/06/23 13:44) MUSCLE ACHES fluconazole [From DIFLUCAN] Allergy (Unknown, Verified 11/06/23 13:44) PER H&P nitroglycerin [From Nitro-Dur] Adverse Reaction (Mild, Verified 11/06/23 13:44) LOW BLOOD PRESSURE Medication List - Last Reconciled 11/06/23 by Elena Michael PA-C albuterol sulfate 90 mcg/actuation 2 puffs PO Q6H PRN 30 days blood sugar diagnostic (FreeStyle Lite Strips) Use to check blood sugars twice daily citalopram 20 mg PO DAILY 90 days diclofenac sodium 1% 2 grams topical QID FreeStyle Lite Meter (blood-glucose meter) As directed NS hydrochlorothiazide 12.5 mg PO DAILY insulin glargine (Lantus Solostar U-100 Insulin) 60 units (0.6 mL) subcut BID 90 days lancets (BD Ultra Fine Lancets) Use to check blood sugar twice daily lisinopril 20 mg PO DAILY 90 days metformin takes 500mg q hs omeprazole 20 mg PO ONCE 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, 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) BID PRN warfarin 10 mg See Protocol PO DAILY HPI HPI T2DM/MAILBOX FULL: Details: Patient is a 68-year-old female with a significant past medical history of prior DVT, on chronic anticoagulation, CKD, diabetic nephropathy, long-term insulin use, 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 She was dx with dm 30 years ago. Her A1c today in the office is 7.9. She is currently on 60 units of Lantus twice a day, metformin 500 once a day. She has never seen an manager account management. She states her diabetes has only ever been managed by her PCP. She did go to diabetic Education years ago. She thinks she when she was 1st diagnosed. She checks her blood sugars once a day. She does not have a CGM. -Mother had thyroid cancer. -in the past treated with glyburide but did not tolerate it. complications include nephropathy and neuropathy She states that in the past she has had 2 hypoglycemic events this year. She treats it with juice. Does not have any glucose tabs at home. She follows with nephrology, last saw them 4 years ago. She has an appointment tomorrow to get reestablished. Overdue for microalbumin. Her blood pressure today in the office is 120/72. She is on lisinopril 20 mg and hydrochlorothiazide 12.5. Did not tolerate statins or gemfibrozil or niacin. [facility] Medical History Long-term insulin use Diabetes 1.5, managed as type 1 Surgical History History of revision of total replacement of right knee joint History of colonoscopy History of total left knee replacement (TKR) History of total right knee replacement (TKR) History of breast biopsy History of tonsillectomy Family History Father Type 2 diabetes mellitus Polymyalgia Mother Cancer of thyroid Sister Breast cancer Sister Leukemia Brother Diabetes mellitus HTN (hypertension) High cholesterol Social History Housing: House Alcohol intake: former Patient Tobacco Use Status: Former Tobacco user Tobacco use type: Cigarette Years Smoked: 4 years e-Cigarette/Vaping Use: Never Used Advance Directives Date on File: 03/05/20 Current occupational status: unemployed Cognitive needs: No Hearing needs: No Vision needs: Yes Female Reproductive History Menstrual Age of Menarche: 12 Physical Exam Vital Signs: Last Vital Signs Pulse 76 11/06/23 13:50 BP 120/72 11/06/23 13:50 BMI result Body Mass Index 44.9 Const Orientation/consciousness: patient oriented x3 Neck Neck: Yes no lymphadenopathy Thyroid: Thyroid normal Carotids: no bruits Resp Auscultation: clear to auscultation bilaterally Cardio Rate: regular rate Rhythm: regular rhythm Heart sounds: S1 normal heart sound present and S2 normal heart sound present Peripheral pulses: dorsalis pedis present Neuro General: patient oriented x3, gait normal and no focal motor deficits Extrem Other: Monofilament sensation intact bilaterally. Vibratory sensation intact but diminished bilaterally. Skin intact. General: Yes normal to inspection Results AMB Hemoglobin A1c AMB Hemoglobin A1c 7.6 % Last Edit by MELISSA Boudreaux on 11/06/23 14:15 Results Reviewed Results Reviewed: Laboratory Last Values Glucose (Clinic) 86 mg/dL (60-115) 11/06/23 13:52 Hgb A1c (Clinic) 7.6 % (4.0-6.0) H 11/06/23 13:55 Laboratory Tests 03/21/22 09/10/23 09/26/23 10:06 23:57 12:08 Sodium 137 Potassium 3.8 Chloride 105 Carbon Dioxide 22 Anion Gap 14 BUN 20 H Creatinine 1.06 Estim Creat Clear Calc 75.5 Estimated GFR 52 Random Glucose 115 Hgb A1c (Clinic) 8 H Calcium 9.1 D Urine Creatinine 114.02 Urine Microalbumin 61.0 Microalb/Creat Ratio 53.4 Assessment & Plan Assessment & Plan (1) Diabetes 1.5, managed as type 1: Code(s): E13.9 - Other specified diabetes mellitus without complications Category: Medical Plan: We discussed adding short-acting, mealtime insulin however she does not want to do this until she has a CGM. Advised her to call us when she gets this and we will help her with setting this up. Microalbumin ordered. Labs reviewed with patient. Discussed that she is also overdue for cholesterol. Will order today. I have referred her back to Podiatry. (2) Long-term insulin use: Code(s): Z79.4 - snf (current) use of insulin Category: Medical Plan: Will continue current regimen. Had a long discussion about insulin, diet, exer cise, rule of 15 15. We discussed the importance of compliance and additional complications associated with poorly controlled diabetes. (3) Morbid obesity: Code(s): E66.01 - Morbid (severe) obesity due to excess calories Category: Medical Plan: I have encouraged weight loss with diet changes. We discussed aiming for 30 minutes of walking a day. (4) Hypertension, essential: Code(s): I10 - Essential (primary) hypertension Category: Medical Plan: Continue current regimen. Blood pressure well controlled. Orders: Orders Lipid Panel Today E13.9 - Other specified diabetes mellitus without complications, I10 - Essential (primary) hypertension AMB Hemoglobin A1c Today E13.9 - Other specified diabetes mellitus without complications, Z13.9 - Encounter for screening, unspecified Microalbumin, Random (w Creat) Today E13.9 - Other specified diabetes mellitus without complications, N18.2 - Chronic kidney disease, stage 2 (mild), Z79.4 - terminal make up operator (current) use of insulin Referrals Diabetes Education Referral E13.9 - Other specified diabetes mellitus without complications Podiatry Referral E13.9 - Other specified diabetes mellitus without complications, Z79.4 - terminal make up operator (current) use of insulin Medications: New blood-glucose sensor (FreeStyle Ara 3 Sensor device) Apply every 14 days As directed 2 ea 11RF E11.9 - Type 2 diabetes mellitus without complications, Z79.4 - snf (current) use of insulin blood-glucose meter,continuous (FreeStyle Ara 3 Fine) As directed 1 ea 0RF Coding Level of Care Code New Pt Level 5 (44688) Complex EM visit Add On G2211 Diagnoses Diabetes 1.5, managed as type 1 E13.9 Long-term insulin use Z79.4 Morbid obesity E66.01 Hypertension, essential I10 Time Spent (min) 80
[2023-11-06 13:50] VITALS: BP 120/72; PULSE 76; BMI 44.9
[2023-11-06 13:56] LABS: Glucose, Whole Blood 86 mg/dL (60-115)
== END 2023-11-06 14:43 | disposition home or self-care (01) ==
PROVIDERS: PCP Internal Medicine; Visit Provider Physician Assistant
DX: E13.9 Other specified diabetes mellitus without complications (principal); Z79.4 Long term (current) use of insulin; E66.01 Morbid (severe) obesity due to excess calories; I10 Essential (primary) hypertension; Z13.9 Encounter for screening, unspecified
CPT/HCPCS: 99205; G2211; G2212

== ENCOUNTER → 2023-11-06 13:28 | Outpatient (BNVA) | payer MEDICARE, SELFPAY | PROVIDERS: PCP Internal Medicine; Visit Provider Physician Assistant | DX: E13.9 Other specified diabetes mellitus without complications (principal); I10 Essential (primary) hypertension; E66.01 Morbid (severe) obesity due to excess calories; Z68.41 Body mass index [BMI] 40.0-44.9, adult; Z79.4 Long term (current) use of insulin | CPT/HCPCS: 82947; 83036; 99202 ==

== ENCOUNTER 2023-11-07 10:32 | Outpatient (REF) | payer MEDICARE, SELFPAY ==
[2023-11-07 12:26] LABS: Microalbum/Creatinine Ratio Ur 83.5 ug/mg cr (<30)
== END 2023-11-07 10:33 | disposition home or self-care (01) ==
LOC: HO.LAB 10:32
PROVIDERS: PCP Internal Medicine; Visit Provider Physician Assistant
DX: I12.9 Hypertensive chronic kidney disease with stage 1 through stage 4 chronic kidney disease, or unspecified chronic kidney disease (principal); E13.22 Other specified diabetes mellitus with diabetic chronic kidney disease; N18.2 Chronic kidney disease, stage 2 (mild); K21.9 Gastro-esophageal reflux disease without esophagitis; Z79.4 Long term (current) use of insulin; Z79.899 Other long term (current) drug therapy
CPT/HCPCS: 82043; 82570; 99202

== ENCOUNTER 2023-11-07 11:07 | Outpatient (AMB) | payer MEDICARE, SELFPAY ==
--- NOTE | 2023-11-03 10:13 | HO.NEPHOV ---
Intake Visit Reasons: Self Referral/ CKD & HTN Allergies medroxyprogesterone [Provera] Allergy (Intermediate, Verified 10/26/23 11:04) SKIN PEELING niacin [From NIASPAN EXTENDED-RELEASE] Allergy (Intermediate, Verified 10/26/23 11:04) facial flushing atorvastatin [From Lipitor] Allergy (Mild, Verified 10/26/23 11:04) MUSCLE ACHES, myalgia gemfibrozil [From Lopid] Allergy (Mild, Verified 10/26/23 11:04) MUSCLE ACHES fluconazole [From DIFLUCAN] Allergy (Unknown, Verified 10/26/23 11:04) PER H&P nitroglycerin [From Nitro-Dur] Adverse Reaction (Mild, Verified 10/26/23 11:04) LOW BLOOD PRESSURE [facility] Medical History Long-term insulin use Diabetes 1.5, managed as type 1 Surgical History History of revision of total replacement of right knee joint History of colonoscopy History of total left knee replacement (TKR) History of total right knee replacement (TKR) History of breast biopsy History of tonsillectomy Family History Father Type 2 diabetes mellitus Polymyalgia Mother Cancer of thyroid Sister Breast cancer Sister Leukemia Brother Diabetes mellitus HTN (hypertension) High cholesterol Social History Housing: House Alcohol intake: former Patient Tobacco Use Status: Former Tobacco user Tobacco use type: Cigarette Years Smoked: 4 years e-Cigarette/Vaping Use: Never Used Advance Directives Date on File: 03/05/20 Current occupational status: unemployed Cognitive needs: No Hearing needs: No Vision needs: Yes Female Reproductive History Menstrual Age of Menarche: 12 Results Reviewed Nephrology Results: No Data to Display Coding
[2023-11-07 11:09] VITALS: BP 128/70; PULSE 79; O2SAT 93; BMI 45.4
--- NOTE | 2023-11-07 11:09 | HO.NEPHOV_ITS ---
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: No Accompanied by: Self / Same As Patient Allergies medroxyprogesterone [Provera] Allergy (Intermediate, Verified 11/07/23 11:11) SKIN PEELING niacin [From NIASPAN EXTENDED-RELEASE] Allergy (Intermediate, Verified 11/07/23 11:11) facial flushing atorvastatin [From Lipitor] Allergy (Mild, Verified 11/07/23 11:11) MUSCLE ACHES, myalgia gemfibrozil [From Lopid] Allergy (Mild, Verified 11/07/23 11:11) MUSCLE ACHES fluconazole [From DIFLUCAN] Allergy (Unknown, Verified 11/07/23 11:11) PER H&P nitroglycerin [From Nitro-Dur] Adverse Reaction (Mild, Verified 11/07/23 11:11) LOW BLOOD PRESSURE Medication List - Last Reconciled 11/07/23 by Goran Lopez MD albuterol sulfate 90 mcg/actuation 2 puffs PO Q6H PRN 30 days blood sugar diagnostic (FreeStyle Lite Strips) Use to check blood sugars twice daily blood-glucose meter,continuous (FreeStyle Ara 3 [place]) As directed blood-glucose sensor (FreeStyle Ara 3 Sensor device) Apply every 14 days As directed citalopram 20 mg PO DAILY 90 days FreeStyle Lite Meter (blood-glucose meter) As directed NS hydrochlorothiazide 12.5 mg PO DAILY insulin glargine (Lantus Solostar U-100 Insulin) 60 units (0.6 mL) subcut BID 90 days lancets (BD Ultra Fine Lancets) Use to check blood sugar twice daily lisinopril 20 mg PO DAILY 90 days metformin takes 500mg q hs omeprazole 20 mg PO DAILY pen needle, 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) BID PRN warfarin 10 mg See Protocol PO DAILY HPI Comments Details: Janna is a pleasant 68-year-old woman with a history of diabetes mellitus for almost 30 years. Blood sugars have been well controlled. She has here for a renal evaluation. Serum creatinine has been around 1.06 mg/dL and has been reasonably stable over the last few years. She is currently on lisinopril 20 mg a day along with hydrochlorothiazide 12.5 mg. Back in 2020 she had urine microalbumin creatinine ratio was 272 which has decreased to 54 as of 2021. She has a history of DVT. She has been on Coumadin for more than 15 years. She was evaluated by Hematology few years ago and there was no definite to etiology determined for the DVT. From renal standpoint she has no specific complaints today. No headache nausea or vomiting. No shortness of breath. No polyuria polydipsia. No significant edema. [facility] Medical History Long-term insulin use Diabetes 1.5, managed as type 1 Surgical History History of revision of total replacement of right knee joint History of colonoscopy History of total left knee replacement (TKR) History of total right knee replacement (TKR) History of breast biopsy History of tonsillectomy Family History Father Type 2 diabetes mellitus Polymyalgia Mother Cancer of thyroid Sister Breast cancer Sister Leukemia Brother Diabetes mellitus HTN (hypertension) High cholesterol Social History Housing: House Alcohol intake: former Patient Tobacco Use Status: Former Tobacco user Tobacco use type: Cigarette Years Smoked: 4 years e-Cigarette/Vaping Use: Never Used Advance Directives Date on File: 03/05/20 Current occupational status: unemployed Cognitive needs: No Hearing needs: No Vision needs: Yes Female Reproductive History Menstrual Age of Menarche: 12 Review of Systems Const Denies fever(s) and Denies weight loss Card Denies chest pain Resp Denies cough and Denies hemoptysis GI Denies abdominal pain, Denies diarrhea and Denies nausea Musc Denies back pain Neuro Denies focal weakness Physical Exam Vital Signs: Last Vital Signs Pulse 79 11/07/23 11:09 BP 128/70 11/07/23 11:09 Pulse Ox 93 11/07/23 11:09 Oxygen Delivery Method Room Air 11/07/23 11:09 BMI result Body Mass Index 45.4 Const General: comfortable; No acute distress Orientation/consciousness: patient oriented x3 Eyes General: appearance normal, both eyes and all related structures Visual Savage: normal visual savage by confrontation Neck Neck: Yes supple and Yes no JVD Resp Effort & Inspection: normal respiratory effort and respiratory effort not decreased Auscultation: rhonchi Cardio Palpation: no palpable S3 and no palpable S4 Heart sounds: no rubs GI Inspection: Yes normal to inspection Palpation (GI): Soft to palpation Percussion: Yes normal to percussion Auscultation: normal bowel sounds General: Yes no CVA tenderness Back/Spine/Pelvis Back: no CVA tenderness Skin General skin exam: no petechiae and no purpura Neuro General: patient oriented x3 and no focal motor deficits Extrem General: No clubbing and No edema Results Reviewed Results Reviewed: Labs reviewed recent creatinine was 1.06 in 09/02/2023. Nephrology Results: Urine Creatinine Pending 11/07/23 Assessment & Plan Assessment & Plan (1) Hypertension, essential: Code(s): I10 - Essential (primary) hypertension Category: Medical (2) Chronic kidney disease, stage 2 (mild): Code(s): N18.2 - Chronic kidney disease, stage 2 (mild) Category: Medical Plan Pleasant 68 year woman with hypertension diabetes mellitus and obesity with mild CKD. Renal function stable with a creatinine of 1.01. She probably has CKD stage 2. She would microalbuminuria most likely due to underlying diabetic hypertensive kidney disease. Obesity would be a contributing factor as well. Goal is to slow the progression of renal disease. Continue with HENRIQUE inhibitor for renal protection Maintain blood pressure less than 130/80. Discussed importance of tight control blood sugar to slow the progression of disease. Avoid nephrotoxic agents including NSAIDs. Encouraged her to increase her fluid intake. Stay on low-sodium diet. She will benefit from SGLT2 inhibitor however we will defer this to audiovisual technician. She has been on anticoagulation for more than 15 years. She has not had DVTs renal almost 15 years. I have encouraged her to follow-up with hematology Orders: Orders Basic Metabolic Panel 3 Months Goran Lopez MD I10 - Essential (primary) hypertension Creatinine Urine 3 Months Goran Lopez MD I10 - Essential (primary) hypertension Total Protein Urine Random 3 Months Goran Lopez MD I10 - Essential (primary) hypertension Medications: Changed From omeprazole 20 mg PO ONCE 90 days 90 caps 0RF K21.9 - Gastro-esophageal reflux disease without esophagitis To omeprazole 20 mg PO DAILY K21.9 - Gastro-esophageal reflux disease without esophagitis Ricco Hill MD Coding Level of Care Code New Pt Level 4 (49701) Diagnoses Hypertension, essential I10 Chronic kidney disease, stage 2 (mild) N18.2
== END 2023-11-07 11:34 | disposition home or self-care (01) ==
PROVIDERS: PCP Internal Medicine; Visit Provider Internal Medicine Hypertension Specialist
DX: I12.9 Hypertensive chronic kidney disease with stage 1 through stage 4 chronic kidney disease, or unspecified chronic kidney disease (principal); N18.2 Chronic kidney disease, stage 2 (mild)
CPT/HCPCS: 99204

== ENCOUNTER 2023-11-08 13:24 | Outpatient (AMB) | payer MEDICARE, SELFPAY ==
[2023-11-08 13:45] LABS: Prothrombin Time Whole Bld POC 25.7 sec (11.1-13.5); ~PT, ~INR - Anti Coag Clinic 2.1 (0.9-1.1)
--- NOTE | 2023-11-08 13:48 | MHC.OFFVISCO ---
Intake Intake Visit Reasons: Anticoagulation Allergies medroxyprogesterone [Provera] Allergy (Intermediate, Verified 11/08/23 13:35) SKIN PEELING niacin [From NIASPAN EXTENDED-RELEASE] Allergy (Intermediate, Verified 11/08/23 13:35) facial flushing atorvastatin [From Lipitor] Allergy (Mild, Verified 11/08/23 13:35) MUSCLE ACHES, myalgia gemfibrozil [From Lopid] Allergy (Mild, Verified 11/08/23 13:35) MUSCLE ACHES fluconazole [From DIFLUCAN] Allergy (Unknown, Verified 11/08/23 13:35) PER H&P nitroglycerin [From Nitro-Dur] Adverse Reaction (Mild, Verified 11/08/23 13:35) LOW BLOOD PRESSURE Nursing Note NO CP,SOB,DIET/MED CHANGES,FALLS OR SX OF BLEEDING. CONTINUE PRESNT DOSE AND FOLLOW-UP IN 3 WEEKS. GOOD UNDERSTANDING OF DOSING INSTR. 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
== END 2023-11-08 13:49 | disposition home or self-care (01) ==
LOC: HO.ACS 13:24
PROVIDERS: PCP Internal Medicine; Visit Provider Internal Medicine
DX: Z79.01 Long term (current) use of anticoagulants (principal)

== ENCOUNTER → 2023-11-08 13:24 | Outpatient (BNVA) | payer MEDICARE, SELFPAY | PROVIDERS: PCP Internal Medicine; Visit Provider Internal Medicine | DX: Z86.718 Personal history of other venous thrombosis and embolism (principal); Z79.01 Long term (current) use of anticoagulants; Z51.81 Encounter for therapeutic drug level monitoring | CPT/HCPCS: 85610; 99211 ==

== ENCOUNTER 2023-11-13 10:53 | Outpatient (AMB) | payer MEDICARE, SELFPAY ==
--- NOTE | 2023-11-13 10:56 | A.OFFVIS_ITS ---
Vital Signs 11/13/23 10:59 Height 5 ft 7 in Weight 291 lb 0.163 oz BMI 45.6 BP 124/74 Blood Pressure Location Rt brachial Position Sitting Pulse 73 Pulse Source Pulse Oximeter Intake Visit Reasons: CGM help- Per Elena-confirmed Intake Note: Patient presents today to follow-up on CGM Per Elena: Patient receives: Pharmacy Last Diabetic Eye exam: UTD, 10/05 - no retinopathy Last Podiatry Visit: overdue Random Glucose: 195mg/dL HgA1C: 7.9 % 11/06/2023 Computer Operations Specialist Required: No Accompanied by: Self / Same As Patient Allergies medroxyprogesterone [Provera] Allergy (Intermediate, Verified 11/13/23 10:58) SKIN PEELING niacin [From NIASPAN EXTENDED-RELEASE] Allergy (Intermediate, Verified 11/13/23 10:58) facial flushing atorvastatin [From Lipitor] Allergy (Mild, Verified 11/13/23 10:58) MUSCLE ACHES, myalgia gemfibrozil [From Lopid] Allergy (Mild, Verified 11/13/23 10:58) MUSCLE ACHES fluconazole [From DIFLUCAN] Allergy (Unknown, Verified 11/13/23 10:58) PER H&P nitroglycerin [From Nitro-Dur] Adverse Reaction (Mild, Verified 11/13/23 10:58) LOW BLOOD PRESSURE HPI Comments Details: The patient is a type 2 diabetic who presents today for training on DataXu 3. She would like to use a reader instead of her android phone. She is currently on metformin and split doses of Lantus with an A1C of 7.6%. She did not bring in her meter for review at her last visit. [facility] Medical History Long-term insulin use Diabetes 1.5, managed as type 1 Surgical History History of revision of total replacement of right knee joint History of colonoscopy History of total left knee replacement (TKR) History of total right knee replacement (TKR) History of breast biopsy History of tonsillectomy Family History Father Type 2 diabetes mellitus Polymyalgia Mother Cancer of thyroid Sister Breast cancer Sister Leukemia Brother Diabetes mellitus HTN (hypertension) High cholesterol Social History Housing: House Alcohol intake: former Patient Tobacco Use Status: Former Tobacco user Tobacco use type: Cigarette Years Smoked: 4 years e-Cigarette/Vaping Use: Never Used Advance Directives Date on File: 03/05/20 Current occupational status: unemployed Cognitive needs: No Hearing needs: No Vision needs: Yes Female Reproductive History Menstrual Age of Menarche: 12 Physical Exam Vital Signs: Last Vital Signs Pulse 73 11/13/23 10:59 BP 124/74 11/13/23 10:59 BMI result Body Mass Index 45.6 Results Reviewed Results Reviewed: Laboratory Last Values Glucose (Clinic) 195 mg/dL (60-115) H 11/13/23 11:05 Assessment & Plan Assessment & Plan (1) Diabetes 1.5, managed as type 1: Code(s): E13.9 - Other specified diabetes mellitus without complications Category: Medical Plan: Today in the office she was trained on how to use the Tailored [employer] Ara 3. She was able to insert the sensor using good technique. . She was coached on how to respond to low and high alarms, meaning of arrows next to the number. Because she did not have any data yet with a new sensor, she was shown on another reader how to use the average glucose and GMI indicator. We at length reviewed target GMI of 7%, how this correlates to A1C and average blood sugar. She was instructed to watch an additional training video on either [employer] web site or on you tube. She was shown how to contact [employer] rep for techical questions or if a sensor was dislodged to obtain a new one. Swimming instructions given. She was instructed on removal of device and is due for new sensor in 2 weeks. She will attempt to insert this on her own and I will see her the next day to review her glucose readings. SHe was advised on average, patients lower their A1C by 1.3% when they use the data from the sensor in particular in relation to post prandial readings from consuming different foods varying in carb content. Medications: New metformin 500 mg PO DAILY 90 days 90 tabs 3RF E13.9 - Other specified diabetes mellitus without complications Coding Level of Care Code Est Pt Level 3 (79061) Diagnoses Diabetes 1.5, managed as type 1 E13.9 Time Spent (min) 30 Comment patient instruction, review of chart and documenting
[2023-11-13 10:59] VITALS: BP 124/74; PULSE 73; BMI 45.6
[2023-11-13 11:11] LABS: Glucose, Whole Blood 195 mg/dL (60-115)
== END 2023-11-13 11:54 | disposition home or self-care (01) ==
PROVIDERS: PCP Internal Medicine; Visit Provider Nurse Practitioner Adult Health
DX: E13.9 Other specified diabetes mellitus without complications (principal)
CPT/HCPCS: 99213

== ENCOUNTER → 2023-11-13 10:53 | Outpatient (BNVA) | payer MEDICARE, SELFPAY | PROVIDERS: PCP Internal Medicine; Visit Provider Nurse Practitioner Adult Health | DX: E13.9 Other specified diabetes mellitus without complications (principal) | CPT/HCPCS: 82947; 99212 ==

== ENCOUNTER 2023-11-22 13:32 | Outpatient (AMB) | payer MEDICARE, SELFPAY ==
[2023-11-22 13:37] VITALS: BP 102/70; PULSE 72; O2SAT 98; BMI 45.1
--- NOTE | 2023-11-22 13:37 | A.OFFPC_ITS ---
Vital Signs 11/22/23 13:37 Height 5 ft 7 in Weight 288 lb BMI 45.1 BP 102/70 Blood Pressure Location Lt brachial Position Sitting Pulse 72 Pulse Source Pulse Oximeter Pulse Oximetry (%) 98 Oxygen Delivery Method Room Air Intake Visit Reasons: transfer of care Sergio/ TISHA Byproduct Engineer Required: No Sales Assoc: Not Required per policy Accompanied by: Self / Same As Patient Allergies medroxyprogesterone [Provera] Allergy (Intermediate, Verified 11/22/23 13:38) SKIN PEELING niacin [From NIASPAN EXTENDED-RELEASE] Allergy (Intermediate, Verified 11/22/23 13:38) facial flushing atorvastatin [From Lipitor] Allergy (Mild, Verified 11/22/23 13:38) MUSCLE ACHES, myalgia gemfibrozil [From Lopid] Allergy (Mild, Verified 11/22/23 13:38) MUSCLE ACHES fluconazole [From DIFLUCAN] Allergy (Unknown, Verified 11/22/23 13:38) PER H&P nitroglycerin [From Nitro-Dur] Adverse Reaction (Mild, Verified 11/22/23 13:38) LOW BLOOD PRESSURE Medication List - Last Reconciled 11/22/23 by Jabier Russell MD albuterol sulfate 90 mcg/actuation 2 puffs PO Q6H PRN 30 days blood sugar diagnostic (FreeStyle Lite Strips) Use to check blood sugars twice daily blood-glucose meter,continuous (FreeStyle Ara 3 [place]) As directed blood-glucose sensor (FreeStyle Ara 3 Sensor device) Apply every 14 days As directed citalopram 20 mg PO DAILY 90 days FreeStyle Lite Meter (blood-glucose meter) As directed NS hydrochlorothiazide 12.5 mg PO DAILY insulin glargine (Lantus Solostar U-100 Insulin) 60 units (0.6 mL) subcut BID 90 days lancets (BD Ultra Fine Lancets) Use to check blood sugar twice daily lisinopril 20 mg PO DAILY 90 days metformin 500 mg PO DAILY 90 days omeprazole 20 mg PO DAILY pen needle, 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) BID PRN warfarin 10 mg See Protocol PO DAILY Tobacco use date assessed: 09/26/23 Fall risk assessment: No Falls in past year Last assessed Fall Risk: 11/22/23 Dental Screening Dental Screen Date: 09/26/23 HPI transfer of care Sergio/ TISHA HPI Details [age] year old morbidly obese female with diabetes mellitus on insulin GERD chronic kidney disease recurrent DVT hypertension generalized anxiety disorder coming in to see me for the 1st time and for physical exam. Notes here from the last colonoscopy was 01/01/2010. Mammogram is up-to-date. Review of the notes has been seen by Neurology November 14 2023 for left hand swelling and pain diagnosis of carpal tunnel left wrist and diabetic peripheral neuropathy nerve conduction test done showing mild diffuse sensory greater than motor axonal peripheral neuropathy in the lower extremities normal EMG right L4- S1 innervated muscles. Patient also is being followed up by Endocrinology has the continuous glucose monitor presently on metformin and Lantus with an A1c of 7.6. Patient is being followed up by Nephrology also seen in 11/07/2023 diagnosis of chronic kidney disease stage 2 microalbuminuria most likely due to underlying diabetic hypertensive kidney disease. On Del inhibitor and to maintain blood pressure. Patient had a recent ER visit for pneumonia in August, treated with Zithromax and cefuroxime. Patient goes to [facility] seen in 05/18/2023 diabetic retinopathy mild nonproliferative does have cataract dry eye syndrome. Patient complained of left hand numbness after the admission where in IV access was placed on the left hand and states had a hematoma there as the patient is on blood thinners also. [facility] Medical History (Updated 11/22/23 @ 14:12 by Jabier Russell MD) Anxiety and depression Shoulder pain, bilateral Environmental allergies LLL pneumonia Encounter for annual routine gynecological examination Contusion of foot Long-term insulin use Diabetes 1.5, managed as type 1 Surgical History History of revision of total replacement of right knee joint History of colonoscopy History of total left knee replacement (TKR) History of total right knee replacement (TKR) History of breast biopsy History of tonsillectomy Family History Father Type 2 diabetes mellitus Polymyalgia Mother Cancer of thyroid Sister Breast cancer Sister Leukemia Brother Diabetes mellitus HTN (hypertension) High cholesterol Social History (Updated 11/22/23 @ 13:55 by Jabier Russell MD) Housing: House Alcohol intake: former Patient Tobacco Use Status: Former Tobacco user Tobacco use type: Cigarette Years Smoked: stopped 1984 e-Cigarette/Vaping Use: Never Used Advance Directives Date on File: 03/05/20 Current occupational status: unemployed Cognitive needs: No Hearing needs: No Vision needs: Yes Female Reproductive History Menstrual Age of Menarche: 12 Questionnaire Thrive Questionnaire Date Thrive assessed: 09/12/23 LEX-7 AMB Questionnaire LEX-7 Date LEX - 7 assessed: 09/12/23 Source: Developed by Drs. Roney Mitchell, Molly Duran, Earl Muhammad and colleagues, with an educational willem from [employer]. Review of Systems Const Denies poor appetite and Denies weakness Eyes Denies no additional complaints ENT Reports Normal hearing present, Denies dizziness, Denies nasal congestion, Denies tinnitus and Denies sore throat Card Denies chest pain, Denies syncope, Denies rapid heart rate and Denies dyspnea Resp Denies cough and Denies dyspnea GI Denies change in stool character, Reports constipation, Denies diarrhea, Denies nausea and Denies vomiting Denies urinary frequency, Denies difficulty voiding and Denies dysuria Neuro Reports Normal hearing present, Denies confusion, Denies dizziness, Denies syncope and Denies weakness Psych Denies confusion Physical exam (Primary Care) Vital Signs: Last Vital Signs Pulse 72 11/22/23 13:37 BP 102/70 11/22/23 13:37 Pulse Ox 98 11/22/23 13:37 Oxygen Delivery Method Room Air 11/22/23 13:37 BMI result Body Mass Index 45.1 Tobacco/Smoking Status: Tobacco use Status Tobacco use date assessed 09/26/23 11/22/23 13:38 Patient Tobacco Use Status Former Tobacco user 11/22/23 13:55 Tobacco use type Cigarette 11/22/23 13:55 e-Cigarette/Vaping Use Never Used 11/22/23 13:55 Thrive Assessment: Date of Thrive Assessment Date Thrive assessed 09/12/23 11/22/23 13:38 Const General: alert; No acute distress or confusion Orientation/consciousness: No confusion HENMT Other: R ear TM impacted cerumen L TM intact Head: Yes normocephalic Ears: external ears normal Face and sinus: Yes normal facial exam Mouth: moist mucous membranes Throat: Yes tonsils normal Eyes Conjunctivae: conjunctivae normal Pupils: Equal, round and reactive pupils present and Pupil accommodation reflex normal Direct Ophthalmoscopy: normal light reflex Neck Neck: No lymphadenopathy Thyroid: Thyroid normal Chest Chest palpation & inspection: normal inspection of the chest Resp Effort & Inspection: normal respiratory effort and no audible wheezes Auscultation: clear to auscultation bilaterally Cardio Rate: regular rate Rhythm: regular rhythm Peripheral pulses: radial pulses present and dorsalis pedis present GI Other: colon test pending pedal pulse and pin prick good Inspection: Yes normal to inspection Palpation (GI): no masses Auscultation: normal bowel sounds and normoactive bowel sounds Rectal Exam - Female: deferred Skin General skin exam: no rashes or lesions noted Rashes: no rashes Neuro General: deep tendon reflexes 2+ bilaterally and No confusion Cranial nerves: Yes Equal, round and reactive pupils present, Yes Midline tongue present, Yes Normal hearing present and Yes Ability to bilaterally elevate shoulders present Cognition (Neuro): normal cognition Gait exam (Neuro): Normal gait present Motor exam (neuro): 5/5 motor strength present throughout Deep tendon reflexes (DTR's): Right brachioradialis reflex intensity grade: 2+, Left brachioradialis reflex intensity grade: 2+, Right patellar reflex intensity grade: 2+ and Left patellar reflex intensity grade: 2+ Extrem General: Yes normal to inspection and No edema Immunizations pneumoc 20-[place] conj-dip cr(PF) 0.5 mL IM syringe Performing Provider: Jabier Russell MD Performing Location: [facility] Administered by: MELISSA Chandler on 11/22/23 14:28 Dose Route Admin Location Dispensed Lot Number Expiration Date [facility] [place] Rink Rat 0.5 mL IM Right Deltoid 0.5 mL [id number] 11/11/24 5629-6572-95 [employer] VIS Given Date VIS Provided VIS Publication Date 11/22/23 Single Vaccine 21 Eligibility Eligibility Date Funding Source Not [facility] Eligible 11/22/23 Private Assessment and Plan Assessment & Plan (1) Diabetes 1.5, managed as type 1: Code(s): E13.9 - Other specified diabetes mellitus without complications Plan: Decrease the amount of carbohydrate intake, pasta, bread, rice and potatoes are all sugar and that is aside from all the sweet stuff, remember that fruits are good but they are Sweet also. Patient is being followed up by Endocrinology has the metformin 500 mg once a day Lantus at 60 units once a day (2) Chronic GERD: Code(s): K21.9 - Gastro-esophageal reflux disease without esophagitis Plan: Avoid the foods that causes that usually spicy foods, tomato products, juices, coffee, soda and foods that your sensitive to. After eating do not lie down, allow 3-4 hours before in lie down. And keep the head of bed above 30 degrees to avoid the acid from going up. On omeprazole (3) Chronic kidney disease, stage 2 (mild): Code(s): N18.2 - Chronic kidney disease, stage 2 (mild) Plan: Keep well hydrated, avoid NSAIDs patient has seen Nephrology continue with lisinopril 20 mg once a day did discuss about SGLT2 (4) Recurrent deep vein thrombosis (DVT): Code(s): I82.409 - Acute embolism and thrombosis of unspecified deep veins of unspecified lower extremity Plan: Continue with anticoagulation with Coumadin (5) Hypertension, essential: Code(s): I10 - Essential (primary) hypertension Plan: Continue with blood pressure medication. Decrease salt intake and exercise on lisinopril 20 mg once a day hydrochlorothiazide 12.5 mg once a day (6) Generalized anxiety disorder: Code(s): F41.1 - Generalized anxiety disorder Plan: Continue with present medication discussed about counseling. (7) Asthma: Code(s): J45.909 - Unspecified asthma, uncomplicated Plan: Continue with the present inhaler and patient is controlled (8) Colon cancer screening: Code(s): Z12.11 - Encounter for screening for malignant neoplasm of colon Plan: Referral to Gastroenterology done 4: Testing (9) Age-related osteoporosis without current pathological fracture: Code(s): M81.0 - Age-related osteoporosis without current pathological fracture Plan: Referral for bone density requested (10) Annual physical exam: Code(s): Z00.00 - Encounter for general adult medical examination without abnormal findings Plan: Patient is advised to eat healthy, keep well hydrated, keep active and have adequate sleep. (11) Hypersomnia: Code(s): G47.10 - Hypersomnia, unspecified Plan: declined testing for now (12) Mixed incontinence: Code(s): N39.46 - Mixed incontinence Plan: Timed voiding meaning every 1-2 hours even if you do not feel like urinating empty the bladder, avoid drinks with high sweet content like juices or caffeine that makes her urinate, 2 hours before you sleep hold liquids so that in the morning you do not get the bladder to be too full. (13) Numbness of left hand: Code(s): R20.0 - Anesthesia of skin Plan: Discussed about carpal tunnel syndrome and testing is pending Orders: Orders XR DEXA axial skeleton Today M81.0 - Age-related osteoporosis without current pathological fracture Complete Blood Count Auto Diff Today E08.21 - Diabetes mellitus due to underlying condition with diabetic nephropathy, E13.9 - Other specified diabetes mellitus without complications, E66.01 - Morbid (severe) obesity due to excess calories, F32.9 - Major depressive disorder, single episode, unspecified, F41.9 - Anxiety disorder, unspecified, I10 - Essential (primary) hypertension, J18.9 - Pneumonia, unspecified organism, K21.9 - Gastro-esophageal reflux disease without esophagitis, R04.2 - Hemoptysis, Z79.4 - terminal clerk (current) use of insulin, Z91.09 - Other allergy status, other than to drugs and biological substances Comprehensive [place]. Panel Fast Today E08.21 - Diabetes mellitus due to underlying condition with diabetic nephropathy, E13.9 - Other specified diabetes mellitus without complications, E66.01 - Morbid (severe) obesity due to excess calories, F32.9 - Major depressive disorder, single episode, unspecified, F41.9 - Anxiety disorder, unspecified, I10 - Essential (primary) hypertension, J18.9 - Pneumonia, unspecified organism, K21.9 - Gastro-esophageal reflux disease without esophagitis, R04.2 - Hemoptysis, Z79.4 - alf (current) use of insulin, Z91.09 - Other allergy status, other than to drugs and biological substances Creatinine Urine Today I10 - Essential (primary) hypertension Lipid Panel Today E13.9 - Other specified diabetes mellitus without complications, I10 - Essential (primary) hypertension Microalbumin, Random (w Creat) Today E08.21 - Diabetes mellitus due to underlying condition with diabetic nephropathy, E13.9 - Other specified diabetes mellitus without complications, E66.01 - Morbid (severe) obesity due to excess calories, F32.9 - Major depressive disorder, single episode, unspecified, F41.9 - Anxiety disorder, unspecified, I10 - Essential (primary) hypertension, J18.9 - Pneumonia, unspecified organism, K21.9 - Gastro-esophageal reflux disease without esophagitis, R04.2 - Hemoptysis, Z79.4 - terminal clerk (current) use of insulin, Z91.09 - Other allergy status, other than to drugs and biological substances Free T4 (Free Thyroxine) Today N18.2 - Chronic kidney disease, stage 2 (mild) Vitamin D 25-OH Total Today N18.2 - Chronic kidney disease, stage 2 (mild) D Dimer High Sensitivity Today I82.409 - Acute embolism and thrombosis of unspecified deep veins of unspecified lower extremity Hemoglobin A1c Today E08.21 - Diabetes mellitus due to underlying condition with diabetic nephropathy, E13.9 - Other specified diabetes mellitus without complications, E66.01 - Morbid (severe) obesity due to excess calories, F32.9 - Major depressive disorder, single episode, unspecified, F41.9 - Anxiety disorder, unspecified, I10 - Essential (primary) hypertension, K21.9 - Gastro- esophageal reflux disease without esophagitis, Z79.4 - alf (current) use of insulin, Z91.09 - Other allergy status, other than to drugs and biological substances Thyroid Stimulating Hormone Today N18.2 - Chronic kidney disease, stage 2 (mild) Vitamin B12 and Folate Today N18.2 - Chronic kidney disease, stage 2 (mild) Pneumococcal 20 Immunization Today Z23 - Encounter for immunization Referrals Psychiatry Referral F41.1 - Generalized anxiety disorder Gastroenterology Referral Z12.11 - Encounter for screening for malignant neoplasm of colon Coding Level of Care Code Est Pt Level 4 (72482) Diagnoses Diabetes 1.5, managed as type 1 E13.9 Chronic GERD K21.9 Chronic kidney disease, stage 2 (mild) N18.2 Recurrent deep vein thrombosis (DVT) I82.409 Hypertension, essential I10 Generalized anxiety disorder F41.1 Asthma J45.909 Colon cancer screening Z12.11 Age-related osteoporosis without current pathological fracture M81.0 Annual physical exam Z00.00 Hypersomnia G47.10 Mixed incontinence N39.46 Numbness of left hand R20.0
== END 2023-11-22 14:33 | disposition home or self-care (01) ==
PROVIDERS: PCP Internal Medicine; Visit Provider Internal Medicine
DX: I12.9 Hypertensive chronic kidney disease with stage 1 through stage 4 chronic kidney disease, or unspecified chronic kidney disease (principal); E13.9 Other specified diabetes mellitus without complications; I82.409 Acute embolism and thrombosis of unspecified deep veins of unspecified lower extremity; Z23 Encounter for immunization; N18.2 Chronic kidney disease, stage 2 (mild); K21.9 Gastro-esophageal reflux disease without esophagitis; F41.1 Generalized anxiety disorder; J45.909 Unspecified asthma, uncomplicated; Z12.11 Encounter for screening for malignant neoplasm of colon; M81.0 Age-related osteoporosis without current pathological fracture; G47.10 Hypersomnia, unspecified; N39.46 Mixed incontinence
CPT/HCPCS: 90471; 90677; 99214

== ENCOUNTER 2023-11-29 11:12 | Outpatient (AMB) | payer MEDICARE, SELFPAY ==
[2023-11-29 11:19] LABS: Prothrombin Time Whole Bld POC 27.2 sec (11.1-13.5); ~PT, ~INR - Anti Coag Clinic 2.3 (0.9-1.1)
--- NOTE | 2023-11-29 11:27 | MHC.OFFVISCO ---
Intake Intake Visit Reasons: Anticoagulation Allergies medroxyprogesterone [Provera] Allergy (Intermediate, Verified 11/29/23 11:14) SKIN PEELING niacin [From NIASPAN EXTENDED-RELEASE] Allergy (Intermediate, Verified 11/29/23 11:14) facial flushing atorvastatin [From Lipitor] Allergy (Mild, Verified 11/29/23 11:14) MUSCLE ACHES, myalgia gemfibrozil [From Lopid] Allergy (Mild, Verified 11/29/23 11:14) MUSCLE ACHES fluconazole [From DIFLUCAN] Allergy (Unknown, Verified 11/29/23 11:14) PER H&P nitroglycerin [From Nitro-Dur] Adverse Reaction (Mild, Verified 11/29/23 11:14) LOW BLOOD PRESSURE Medication List - Last Reconciled 11/29/23 by Amee Quintero RN albuterol sulfate 90 mcg/actuation 2 puffs PO Q6H PRN 30 days blood sugar diagnostic (FreeStyle Lite Strips) Use to check blood sugars twice daily blood-glucose meter,continuous (FreeStyle Ara 3 [place]) As directed blood-glucose sensor (FreeStyle Ara 3 Sensor device) Apply every 14 days As directed citalopram 20 mg PO DAILY 90 days FreeStyle Lite Meter (blood-glucose meter) As directed NS hydrochlorothiazide 12.5 mg PO DAILY insulin glargine (Lantus Solostar U-100 Insulin) 60 units (0.6 mL) subcut BID 90 days lancets (BD Ultra Fine Lancets) Use to check blood sugar twice daily lisinopril 20 mg PO DAILY 90 days metformin 500 mg PO DAILY 90 days omeprazole 20 mg PO DAILY pen needle, 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) BID PRN warfarin 10 mg See Protocol PO DAILY Nursing Note NO CP,SOB,DIET/MED CHANGES,FALLS OR SX OF BLEEDING. CONTINUE 10MGM DAILY AND FOLLOW-UP IUN 4 WEEKS. GOOD UNDERSTANDING OF DOSING INSTR. Anti-Coag Initial Assessment Social Hx Patient Tobacco Use Status: Former Tobacco user Tobacco use type: Cigarette alcohol intake: former Alcohol intake frequency: holidays/special occasions only Coding Level of Care Code Est Patient Level 1 Diagnoses Current use of anticoagulant therapy Z79.01 Assessment & Plan Assessment & Plan (1) Current use of anticoagulant therapy: 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
== END 2023-11-29 11:29 | disposition home or self-care (01) ==
LOC: HO.ACS 11:12
PROVIDERS: PCP Internal Medicine; Visit Provider Internal Medicine
DX: Z79.01 Long term (current) use of anticoagulants (principal)

== ENCOUNTER → 2023-11-29 11:12 | Outpatient (BNVA) | payer MEDICARE, SELFPAY | PROVIDERS: PCP Internal Medicine; Visit Provider Internal Medicine | DX: Z86.718 Personal history of other venous thrombosis and embolism (principal); Z79.01 Long term (current) use of anticoagulants; Z51.81 Encounter for therapeutic drug level monitoring | CPT/HCPCS: 85610; 99211 ==

== ENCOUNTER 2023-12-05 10:25 | Outpatient (AMB) | payer MEDICARE, SELFPAY ==
--- NOTE | 2023-12-05 10:29 | A.OFFVIS_ITS ---
Vital Signs 12/05/23 10:33 Height 5 ft 7 in Weight 286 lb 9.615 oz BMI 44.9 BP 126/84 Blood Pressure Location Rt brachial Position Sitting Pulse 70 Intake Visit Reasons: DM f/u per dustin/UNABLE TO LVM Intake Note: Patient presents today for a follow-up on Type 1 Diabetes Mellitus: Most recent Eye Exam: UTD, 10/05 - no retinopathy Most recent Podiatry Exam: DUE Most recent HbA1c: 7.6%, 11/06/2023 Random Glucose- 169mg/dL, Today Non Clinical Advisor Required: No Accompanied by: Self / Same As Patient Allergies medroxyprogesterone [Provera] Allergy (Intermediate, Verified 12/05/23 10:31) SKIN PEELING niacin [From NIASPAN EXTENDED-RELEASE] Allergy (Intermediate, Verified 12/05/23 10:31) facial flushing atorvastatin [From Lipitor] Allergy (Mild, Verified 12/05/23 10:31) MUSCLE ACHES, myalgia gemfibrozil [From Lopid] Allergy (Mild, Verified 12/05/23 10:31) MUSCLE ACHES fluconazole [From DIFLUCAN] Allergy (Unknown, Verified 12/05/23 10:31) PER H&P nitroglycerin [From Nitro-Dur] Adverse Reaction (Mild, Verified 12/05/23 10:31) LOW BLOOD PRESSURE HPI Comments Details: Patient is a 68-year-old female with a significant past medical history of prior DVT, on chronic anticoagulation, CKD, diabetic nephropathy, long-term insulin use, type 1.5 diabetes managed as a type 1, and hypertension presenting today for a follow-up regarding her diabetes after recently being started on a free style raoul 3 sensor. She was dx with dm 30 years ago. Her A1c earlier this month is 7.9. She is currently on 60 units of Lantus twice a day, metformin 500 once a day. She has never seen an policyholder information clerk. She states her diabetes has only ever been managed by her PCP. She did go to diabetic Education years ago. She thinks she went she was 1st diagnosed. Dexcom average glucose: [209 ] Glucose Managment indicator [7.3 0 ] % TIme in range: 6 % very high (above 250) [34 ] % high ?(181-250) [ 59] % in range ?(70-180] [1 ] % low (69-55) [0.65 ] % ?very low (below 54) -Mother had thyroid cancer and metastatic abdominal cancer (not sure if involving pancreas) -in the past treated with glyburide but did not tolerate it. complications include nephropathy and neuropathy She states that in the past she has had 2 hypoglycemic events this year. She treats it with juice. Does not have any glucose tabs at home. She follows with nephrology, last saw them 4 years ago. She has an appointment tomorrow to get reestablished. Overdue for microalbumin. She is on lisinopril 20 mg and hydrochlorothiazide 12.5. Did not tolerate statins or gemfibrozil or niacin. [facility] Medical History Anxiety and depression Shoulder pain, bilateral Environmental allergies LLL pneumonia Encounter for annual routine gynecological examination Contusion of foot Long-term insulin use Diabetes 1.5, managed as type 1 Surgical History History of revision of total replacement of right knee joint History of colonoscopy History of total left knee replacement (TKR) History of total right knee replacement (TKR) History of breast biopsy History of tonsillectomy Family History Father Type 2 diabetes mellitus Polymyalgia Mother Cancer of thyroid Sister Breast cancer Sister Leukemia Brother Diabetes mellitus HTN (hypertension) High cholesterol Social History Housing: House Alcohol intake: former Patient Tobacco Use Status: Former Tobacco user Tobacco use type: Cigarette Years Smoked: stopped 1984 e-Cigarette/Vaping Use: Never Used Advance Directives Date on File: 03/05/20 Current occupational status: unemployed Cognitive needs: No Hearing needs: No Vision needs: Yes Female Reproductive History Menstrual Age of Menarche: 12 Physical Exam Vital Signs: Last Vital Signs Pulse 70 12/05/23 10:33 BP 126/84 12/05/23 10:33 BMI result Body Mass Index 44.9 Neck Neck: Yes normal visual inspection Thyroid: Thyroid normal Chest Chest palpation & inspection: normal inspection of the chest Resp Effort & Inspection: normal respiratory effort Results Reviewed Results Reviewed: Laboratory Last Values Glucose (Clinic) 169 mg/dL (60-115) H 12/05/23 10:38 Assessment & Plan Assessment & Plan (1) Fatty liver: Code(s): K76.0 - Fatty (change of) liver, not elsewhere classified Category: Medical Plan Fib 4 stge 2-3 fibrosis Will check ultrasound with elastography. Once results are received will order fibrosis labs. She is not interested in GLp-1 agonist but could consider Rezdiffra Orders: Orders US abdomen rocha w elastography Today K76.0 - Fatty (change of) liver, not elsewhere classified Coding Level of Care Code Est Pt Level 4 (29949) Complex EM visit Add On G2211 Diagnoses Fatty liver K76.0 Time Spent (min) 30 Comment chart review, lab review, face to face, documenting
[2023-12-05 10:33] VITALS: BP 126/84; PULSE 70; BMI 44.9
[2023-12-05 10:43] LABS: Glucose, Whole Blood 169 mg/dL (60-115)
== END 2023-12-05 11:09 | disposition home or self-care (01) ==
PROVIDERS: PCP Internal Medicine; Visit Provider Nurse Practitioner Adult Health
DX: K76.0 Fatty (change of) liver, not elsewhere classified (principal)
CPT/HCPCS: 99214; G2211

== ENCOUNTER → 2023-12-05 10:25 | Outpatient (BNVA) | payer MEDICARE, SELFPAY | PROVIDERS: PCP Internal Medicine; Visit Provider Nurse Practitioner Adult Health | DX: E13.21 Other specified diabetes mellitus with diabetic nephropathy (principal); E13.40 Other specified diabetes mellitus with diabetic neuropathy, unspecified; K76.0 Fatty (change of) liver, not elsewhere classified | CPT/HCPCS: 82947; 99212 ==

== ENCOUNTER 2023-12-19 11:22 | Outpatient (REF) | payer MEDICARE, SELFPAY ==
--- NOTE | ~2023-12-19 | MM_ITS ---
EXAMINATION: BONE DENSITOMETRY CLINICAL INDICATION: Age-related osteoporosis without recurrent pathological fracture. COMPARISON: This is the patient's baseline examination. TECHNIQUE: Using a [employer]ant[employer] DXA System (software version: 13.1) manufactured by [employer], dual-energy x-ray absorptiometry was performed of the lumbar spine and left hip. The images are of good technical quality. Summary results are attached. FINDINGS: LEFT FEMUR, NECK: BMD 1.145 g/cm2, Z-score 1.5, T-score 0.8, normal. LEFT FEMUR, TOTAL: BMD 1.233 g/cm2, Z-score 2.2, T-score 1.8, normal. AP SPINE L1-L4: BMD 1.588 g/cm2, Z-score 3.8, T-score 3.4, normal. IDENTIFIED RISK FACTORS: Early menopause, height loss, renal, secondary osteoporosis. HISTORY OF FRACTURE: None listed. MEDICATIONS: Calcium, vitamin D. MM/XR DEXA axial skeleton IMPRESSION: 1. DIAGNOSIS: Normal bone density based on the lowest T-score value of 0.8 in the femoral neck applying World Health Organization criteria. 2. 10-YEAR FRACTURE RISK PREDICTION, FRAX: According to the guidelines, FRAX calculation should only be performed on patients in the osteopenia bone density category. Therefore, FRAX was not performed on this patient. 3. Treatment Recommendations: NOF guidelines recommend consideration for treatment in postmenopausal women and men age 50 and older presenting with the following: -A hip or vertebral (clinical or morphometric) fracture. -T-score less than or equal to -2.5 at the femoral neck or spine after appropriate evaluation to exclude secondary causes. -Low bone mass at the hip or spine and a 10-year fracture probability by FRAX of greater than or equal to 3% for hip fracture or greater than or equal to 20% for major osteoporotic fracture based on the [place] adapted WHO algorithm. 4. Other Recommendations: All treatment decisions require clinical judgment and consideration of individual patient factors, including patient preferences, comorbidities, previous drug use, risk factors not captured in the FRAX model (e.g. frailty, falls, vitamin D deficiency, increased bone turnover, interval significant decline in bone density) and possible under or overestimation of fracture risk by FRAX. FUTURE SCAN RECOMMENDATION: People with diagnosed cases of osteoporosis or at high risk for fracture should have regular bone mineral density tests. For patients eligible for Medicare, routine testing is allowed once every 2 years. The testing frequency can be increased to one year for patients who have rapidly progressing disease, those who are receiving or discontinuing medical therapy to restore bone mass, or have additional risk factors.
== END 2023-12-19 11:23 | disposition home or self-care (01) ==
LOC: HO.MAMMO 11:22
PROVIDERS: PCP Internal Medicine; Visit Provider Internal Medicine
DX: M81.0 Age-related osteoporosis without current pathological fracture (principal)
CPT/HCPCS: 77080

== ENCOUNTER 2023-12-20 11:06 | Outpatient (AMB) | payer MEDICARE, SELFPAY ==
--- NOTE | 2023-12-20 11:06 | A.OFFPC_ITS ---
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 Allergies medroxyprogesterone [Provera] Allergy (Intermediate, Verified 12/20/23 11:07) SKIN PEELING niacin [From NIASPAN EXTENDED-RELEASE] Allergy (Intermediate, Verified 12/20/23 11:07) facial flushing atorvastatin [From Lipitor] Allergy (Mild, Verified 12/20/23 11:07) MUSCLE ACHES, myalgia gemfibrozil [From Lopid] Allergy (Mild, Verified 12/20/23 11:07) MUSCLE ACHES fluconazole [From DIFLUCAN] Allergy (Unknown, Verified 12/20/23 11:07) PER H&P nitroglycerin [From Nitro-Dur] Adverse Reaction (Mild, Verified 12/20/23 11:07) LOW BLOOD PRESSURE Medication List - Last Reconciled 12/20/23 by Ayla Pretty PA-C albuterol sulfate 90 mcg/actuation 2 puffs PO Q6H PRN 30 days blood sugar diagnostic (FreeStyle Lite Strips) Use to check blood sugars twice daily blood-glucose meter,continuous (FreeStyle Ara 3 [place]) As directed blood-glucose sensor (FreeStyle Ara 3 Sensor device) Apply every 14 days As directed citalopram 20 mg PO DAILY 90 days FreeStyle Lite Meter (blood-glucose meter) As directed NS hydrochlorothiazide 12.5 mg PO DAILY insulin glargine (Lantus Solostar U-100 Insulin) 60 units (0.6 mL) subcut BID 90 days lancets (BD Ultra Fine Lancets) Use to check blood sugar twice daily lisinopril 20 mg PO DAILY 90 days metformin 500 mg PO DAILY 90 days omeprazole 20 mg PO DAILY pen needle, 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) BID PRN warfarin 10 mg See Protocol PO DAILY Tobacco use date assessed: 09/26/23 Fall risk assessment: No Falls in past year Last assessed Fall Risk: 12/20/23 Dental Screening Dental Screen Date: 09/26/23 HPI ear wax removal HPI Details 68-year-old female with past medical his tory diabetes mellitus on insulin, diabetic nephropathy, GERD, chronic kidney disease, hypertension, generalized anxiety disorder, fatty liver disease, and recurrent DVT last seen by Dr. Russell November 2023 coming in for cerumen removal.? In review of the notes, she was seen by endocrinology November 2023 ordered for ultrasound with elastography to evaluate fatty liver scheduled for 12/27/2023.? Bone density completed 12/19/2023. Patient states she has been using hydrogen peroxide in the ears to loosen the wax which has not been working. She also mentioned she has been having dizziness when moving her head which she also relates the wax. [facility] Medical History (Updated 12/20/23 @ 11:50 by Ayla Pretty PA-C) Fatty liver Anxiety and depression Shoulder pain, bilateral Environmental allergies LLL pneumonia Encounter for annual routine gynecological examination Contusion of foot Long-term insulin use Diabetes 1.5, managed as type 1 Surgical History History of revision of total replacement of right knee joint History of colonoscopy History of total left knee replacement (TKR) History of total right knee replacement (TKR) History of breast biopsy History of tonsillectomy Family History Father Type 2 diabetes mellitus Polymyalgia Mother Cancer of thyroid Sister Breast cancer Sister Leukemia Brother Diabetes mellitus HTN (hypertension) High cholesterol Social History Housing: House Alcohol intake: former Patient Tobacco Use Status: Former Tobacco user Tobacco use type: Cigarette Years Smoked: stopped 1984 e-Cigarette/Vaping Use: Never Used Advance Directives Date on File: 03/05/20 Current occupational status: unemployed Cognitive needs: No Hearing needs: No Vision needs: Yes Female Reproductive History Menstrual Age of Menarche: 12 Questionnaire Thrive Questionnaire Date Thrive assessed: 09/12/23 AUDIT C Alcohol Use Questionnaire (AUDIT-C) 1. How often do you have a drink containing alcohol?: Never 3. How often do you have six or more drinks on one occasion?: Never Total Score: 0 Score Reviewed/Action Taken: Yes LEX-7 AMB Questionnaire LEX-7 Date LEX - 7 assessed: 09/12/23 Source: Developed by Drs. Roney Mitchell, Molly Duran, Earl Muhammad and colleagues, with an educational willem from [employer]. Review of Systems Const Denies fever(s) and Denies headache(s) Eyes Reports no additional complaints ENT Denies Normal hearing present (Decreased hearing in right ear), Reports dizziness (With rapid head turning) and Denies headache(s) Resp Denies cough Musc Reports no additional complaints and Denies abnormal gait Skin/Breast Reports system reviewed and no additional complaints, except as documented Neuro Denies Normal hearing present (Decreased hearing in right ear), Denies abnormal gait, Reports dizziness (With rapid head turning) and Denies headache(s) Psych Reports no additional complaints Physical exam (Primary Care) Vital Signs: Last Vital Signs Pulse 74 12/20/23 11:07 BP 130/82 12/20/23 11:07 Pulse Ox 92 12/20/23 11:07 Oxygen Delivery Method Room Air 12/20/23 11:07 BMI result Body Mass Index 44.5 Tobacco/Smoking Status: Tobacco use Status Tobacco use date assessed 09/26/23 12/20/23 11:09 Patient Tobacco Use Status Former Tobacco user 12/20/23 11:09 Tobacco use type Cigarette 12/20/23 11:09 e-Cigarette/Vaping Use Never Used 12/20/23 11:09 Thrive Assessment: Date of Thrive Assessment Date Thrive assessed 09/12/23 12/20/23 11:09 Const General: cooperative, comfortable and no acute distress HENMT Head: Yes normocephalic Ears: hearing grossly normal bilaterally, Abnormal EAC present cerumen impaction bilateral and unable to visualize TM bilaterally Resp Effort & Inspection: normal respiratory effort and able to speak in complete sentences Cardio Rate: regular rate Rhythm: regular rhythm Neuro Cranial nerves: No Normal hearing present (Decreased hearing in right ear) Office Procedures Cerumen Removal From which ear canal was the cerumen removed: bilateral Removal: irrigation and otoscope w/curette Notes: patient tolerated procedure well, no complications and ear canal clear [id number] Irrigation/Lavage Assessment and Plan Assessment & Plan (1) Impacted cerumen: Code(s): H61.20 - Impacted cerumen, unspecified ear Plan: Bilateral ear canals were impacted with cerumen which were successfully cleared with the use of irrigation and curette. Patient tolerated the procedure well and denies any pain or dizziness. States hearing has improved after clearing of the wax. We will follow up in 3 months for repeat irrigation. Plan This note was constructed using voice recognition software. While every effort has been made to ensure accuracy and van helper, still areas may have been included sometimes these areas may affect the content or meeting of the given symptoms. Total time spent caring for the patient today was 20 minutes. This includes time spent before the visit reviewing the chart, time spent during the visit, and time spent after the visit and documentation. Medications: Refilled insulin glargine (Lantus Solostar U-100 Insulin) 60 units (0.6 mL) subcut BID 90 days 108 mL 3RF Coding Level of Care Code Est Pt Level 3 (32502) Diagnoses Impacted cerumen H61.20 CPT Codes Office Procedure - CPT: 65079-Kuz Irrigation/Lavage ([id number])
[2023-12-20 11:07] VITALS: BP 130/82; PULSE 74; O2SAT 92; BMI 44.5
== END 2023-12-20 11:49 | disposition home or self-care (01) ==
PROVIDERS: PCP Internal Medicine
DX: H61.23 Impacted cerumen, bilateral (principal)
CPT/HCPCS: 69210; 99213

== ENCOUNTER 2023-12-27 08:55 | Outpatient (REF) | payer MEDICARE, SELFPAY ==
--- NOTE | ~2023-12-27 | US_ITS ---
EXAMINATION: US ABDOMEN LIMITED WITH LIVER ELASTOGRAPHY CLINICAL INFORMATION: Fatty liver. COMPARISON: CT chest 09/11/2023. TECHNIQUE: Real-time imaging of the abdominal viscera. Noninvasive ultrasound liver fibrosis assessment is performed using Patricio ElastPQ point quantification shear wave elastography (pSWE) with a 5 MHz transducer. Multiple elastography samples are obtained. FINDINGS: PANCREAS: The visualized pancreatic head and body are normal in appearance. The remainder of the pancreas is obscured from visualization by the overlying bowel gas. LIVER: The liver is enlarged measuring 19.8 cm in greatest length with increased echogenicity consistent with hepatic steatosis. No focal lesion or intrahepatic biliary duct dilatation. Shear wave elastography provides a median stiffness of 1.46 m/s (reference: normal median stiffness is 0.81 - 1.22 m/s). The IQR/median stiffness to assess sampling precision is 0.11 (reference: optimal IQR/median stiffness is under 0.3). GALLBLADDER: The gallbladder contracted without evidence of stones, sludge, polyps, or pericholecystic fluid. COMMON BILE DUCT: Normal in caliber measuring 0.4 cm in diameter. RIGHT KIDNEY: Normal. No hydronephrosis. No renal calculi or focal parenchymal lesions. The kidney measures 11.6 cm in maximum dimension. FREE FLUID: None. US/US abdomen rocha w elastography IMPRESSION: 1. Enlarged fatty liver. 2. Liver Elastography: In the absence of other known clinical signs, measurements rule out compensated advanced chronic liver disease. If there are known clinical signs, further testing may be needed for confirmation. REFERENCE: Society of Radiologists in Ultrasound Liver Stiffness Thresholds (2020): LIVER STIFFNESS THRESHOLDS: *Liver Stiffness equal or less than 1.3 m/s: High probability of being normal. *Liver Stiffness less than 1.7 m/s: In the absence of other known clinical signs, rules out compensated advanced chronic liver disease. *Liver Stiffness 1.7-2.1 m/s: Suggestive of compensated advanced chronic liver disease but need further test for confirmation. *Liver Stiffness over 2.1 m/s: Rules in compensated advanced chronic liver disease. *Liver Stiffness over 2.4 m/s: Suggestive of clinically significant portal hypertension. QUALITY OF DATA SET: *IQR/Median value equal or less than 0.15 implies a quality data set. *IQR/Median value over 0.15 implies a poor quality data set. SIGNIFICANT CHANGE FROM PRIOR EXAM: Significant change if liver stiffness measurement is 10% or greater from prior exam. OTHER CONSIDERATIONS: The stage of liver fibrosis may be overestimated in the setting of acute hepatitis, liver inflammation, elevated liver function tests, hepatic vascular congestion, obstructive cholestasis, non-fasting state, and infiltrative diseases such as amyloidosis and lymphoma. In some patients with NAFLD, the liver stiffness thresholds for compensated advanced chronic liver disease may be lower. In causes other than viral hepatitis and NAFLD, liver stiffness thresholds are not well established. Electronically signed by: Maninder Roman MD 01/19/2024 09:38 PM EDT
[2023-12-27 09:11] LABS: MANUAL DIFF FLAG NO
[2023-12-27 09:36] LABS: Basophils Percent Auto 0.4 % (0-2); Eosinophils Absolute Auto 0.1 X10*3/uL (0.0-0.4); Eosinophils Percent Auto 2.5 % (0-4); Hemoglobin 14.7 g/dl (12.0-16.0); Imm Gran Abs Auto 0.01 X10*3/uL (0.00-0.03); Imm Gran Pct Auto 0.2 % (0.0-0.4); Lymphocytes Absolute Auto 1.6 X10*3/uL (1.2-4.9); Lymphocytes Percent Auto 28.3 % (20-40); Mean Corpuscular HGB Conc 33.4 g/dl (31.0-35.0); Mean Corpuscular Volume 80.7 fL (80.0-98.0); Mean Platelet Volume 12.1 fL (9.4-12.3); Monocytes Absolute Auto 0.5 X10*3/uL (0.1-1.2); Monocytes Percent Auto 8.6 % (2-11); Neutrophils Absolute Auto 3.4 x10*3/uL (2.0-8.3); Platelet Count 211 X10*3/uL (160-400); Red Blood Count 5.45 X10*6/uL (4.20-5.50); White Blood Count 5.7 X10*3/uL (4.8-10.8)
[2023-12-27 09:54] LABS: D Dimer High Sensitivity < 150 NG/ML
[2023-12-27 10:04] LABS: Estimated Average Glucose 174 mg/dL; Hemoglobin A1c % 7.7 % (<6.0)
[2023-12-27 10:22] LABS: Alanine Aminotransferase 20 U/L (0-31); Alkaline Phosphatase 99 U/L (39-117); Anion Gap 11 (12-20); Aspartate Amino Transferase 24 U/L (5-31); Bilirubin Total 0.6 mg/dL (0.0-1.0); Blood Urea Nitrogen 25 mg/dL (9-16); Calcium 9.3 mg/dL (8.4-10.2); Carbon Dioxide 27 mmol/L (22-29); Chloride 105 mmol/L (96-108); Cholesterol 183 mg/dL (<200); Estimated Glomerular Filt Rate 52; Glucose Fasting 147 mg/dL (60-99); HDL Cholesterol 28 mg/dL (>40); LDL Cholesterol Calculated 78 mg/dL (<100); Potassium 4.1 mmol/L (3.3-5.1); Sodium 139 mmol/L (135-145); Total Protein 7.3 g/dL (6.5-8.0); Triglycerides 389 mg/dL (<150)
[2023-12-27 10:40] LABS: Free T4 (Free Thyroxine) 0.94 ng/dL (0.71-1.85); Thyroid Stimulating Hormone 1.07 uIU/mL (0.32-4.0); Vitamin D 25-OH Total 50.2 ng/mL (>30)
[2023-12-27 11:03] LABS: Folate 11.4 ng/mL (> or = 4.0); Vitamin B12 635 pg/mL (200-900)
[2023-12-27 11:27] LABS: Creatinine Urine 106.54 mg/dL; Microalbum/Creatinine Ratio Ur 152.9 ug/mg cr (<30)
== END 2023-12-27 08:56 | disposition home or self-care (01) ==
LOC: HO.US 08:55
PROVIDERS: Absent Provider Internal Medicine; PCP Internal Medicine; Visit Provider Nurse Practitioner Adult Health
DX: I10 Essential (primary) hypertension (principal); E13.9 Other specified diabetes mellitus without complications; N18.2 Chronic kidney disease, stage 2 (mild); I82.409 Acute embolism and thrombosis of unspecified deep veins of unspecified lower extremity; Z79.4 Long term (current) use of insulin; K21.9 Gastro-esophageal reflux disease without esophagitis; E08.21 Diabetes mellitus due to underlying condition with diabetic nephropathy; E66.01 Morbid (severe) obesity due to excess calories; Z91.09 Other allergy status, other than to drugs and biological substances; F41.9 Anxiety disorder, unspecified; F32.9 Major depressive disorder, single episode, unspecified; J18.9 Pneumonia, unspecified organism; R04.2 Hemoptysis; K76.0 Fatty (change of) liver, not elsewhere classified
CPT/HCPCS: 36415; 76705; 76981; 80053; 80061; 82043; 82306; 82570; 82607; 82746; 83036; 84439; 84443; 85025; 85379

== ENCOUNTER 2023-12-28 11:10 | Outpatient (AMB) | payer MEDICARE, SELFPAY ==
[2023-12-28 11:27] LABS: Prothrombin Time Whole Bld POC 28.8 sec (11.1-13.5); ~PT, ~INR - Anti Coag Clinic 2.4 (0.9-1.1)
--- NOTE | 2023-12-28 11:33 | MHC.OFFVISCO ---
Intake Intake Visit Reasons: Anticoagulation Allergies medroxyprogesterone [Provera] Allergy (Intermediate, Verified 12/28/23 11:19) SKIN PEELING niacin [From NIASPAN EXTENDED-RELEASE] Allergy (Intermediate, Verified 12/28/23 11:19) facial flushing atorvastatin [From Lipitor] Allergy (Mild, Verified 12/28/23 11:19) MUSCLE ACHES, myalgia gemfibrozil [From Lopid] Allergy (Mild, Verified 12/28/23 11:19) MUSCLE ACHES fluconazole [From DIFLUCAN] Allergy (Unknown, Verified 12/28/23 11:19) PER H&P nitroglycerin [From Nitro-Dur] Adverse Reaction (Mild, Verified 12/28/23 11:19) LOW BLOOD PRESSURE Medication List - Last Reconciled 12/28/23 by Kathia Kennedy RN albuterol sulfate 90 mcg/actuation 2 puffs PO Q6H PRN 30 days blood sugar diagnostic (FreeStyle Lite Strips) Use to check blood sugars twice daily blood-glucose meter,continuous (FreeStyle Ara 3 [place]) As directed blood-glucose sensor (FreeStyle Ara 3 Sensor device) Apply every 14 days As directed citalopram 20 mg PO DAILY 90 days FreeStyle Lite Meter (blood-glucose meter) As directed NS hydrochlorothiazide 12.5 mg PO DAILY insulin glargine (Lantus Solostar U-100 Insulin) 60 units (0.6 mL) subcut BID 90 days lancets (BD Ultra Fine Lancets) Use to check blood sugar twice daily lisinopril 20 mg PO DAILY 90 days metformin 500 mg PO DAILY 90 days omeprazole 20 mg PO DAILY pen needle, 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) BID PRN warfarin 10 mg See Protocol PO DAILY Nursing Note INR: 2.4 in therapeutic range Medications and supplements reviewed No changes in health, diet, medications, or supplements, Denies any signs and symptoms of bleeding or bruising or clotting. 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
== END 2023-12-28 11:35 | disposition home or self-care (01) ==
LOC: HO.ACS 11:10
PROVIDERS: PCP Internal Medicine; Visit Provider Internal Medicine
DX: Z79.01 Long term (current) use of anticoagulants (principal)

== ENCOUNTER → 2023-12-28 11:10 | Outpatient (BNVA) | payer MEDICARE, SELFPAY | PROVIDERS: PCP Internal Medicine; Visit Provider Internal Medicine | DX: Z86.718 Personal history of other venous thrombosis and embolism (principal); Z79.01 Long term (current) use of anticoagulants; Z51.81 Encounter for therapeutic drug level monitoring | CPT/HCPCS: 85610; 99211 ==

== ENCOUNTER 2024-01-03 10:58 | Outpatient (AMB) | payer MEDICARE, SELFPAY ==
--- NOTE | 2024-01-03 10:59 | A.OFFVIS_ITS ---
Vital Signs 01/03/24 11:17 Height 5 ft 7 in Weight 288 lb 12.889 oz BMI 45.2 BP 120/70 Blood Pressure Location Rt brachial Position Sitting Pulse 70 Pulse Source Pulse Oximeter Intake Visit Reasons: DM/CONFIRMED Intake Note: Patient presents today for a follow-up on Type 1 Diabetes Mellitus: Most recent Eye Exam: UTD, 10/05 - no retinopathy Most recent Podiatry Exam: DUE Most recent HbA1c: 7.6%, 11/06/2023 Random Glucose- 242mg/dL, Today Rib Cutter Required: No Accompanied by: Self / Same As Patient Allergies medroxyprogesterone [Provera] Allergy (Intermediate, Verified 01/03/24 11:22) SKIN PEELING niacin [From NIASPAN EXTENDED-RELEASE] Allergy (Intermediate, Verified 01/03/24 11:22) facial flushing atorvastatin [From Lipitor] Allergy (Mild, Verified 01/03/24 11:22) MUSCLE ACHES, myalgia gemfibrozil [From Lopid] Allergy (Mild, Verified 01/03/24 11:22) MUSCLE ACHES fluconazole [From DIFLUCAN] Allergy (Unknown, Verified 01/03/24 11:22) PER H&P nitroglycerin [From Nitro-Dur] Adverse Reaction (Mild, Verified 01/03/24 11:22) LOW BLOOD PRESSURE HPI Comments Details: Patient is a 68-year-old female with a significant past medical history of prior DVT, on chronic anticoagulation, CKD, diabetic nephropathy, long-term insulin use and hypertension presenting today for a follow-up regarding her diabetes after recently being started on a free style raoul 3 sensor. I am unable to find any insulin antibody testing in her record. She was dx with dm 30 years ago. Her A1c earlier this month is 7.9. She is currently on 60 units of Lantus twice a day, metformin 500 once a day. She has never seen an crm technical lead. She states her diabetes has only ever been managed by her PCP. She did go to diabetic Education years ago. She thinks she went she was 1st diagnosed. freestyle raoul 3: average glucose: [176 ] Glucose Management indicator 7.5[ ] % TIme in range: [ 13] % very high (above 250) [29 ] % v high (181-250) [58 ] % in range (70-180] [0 ] % low (69-55) [ 0] % very low (below 54) Details [higher readings throughout te day ] -Mother had thyroid cancer and metastatic abdominal cancer (not sure if involving pancreas) -in the past treated with glyburide but did not tolerate it. complications include nephropathy and neuropathy Recent dexa: normal bone density She states that in the past she has had 2 hypoglycemic events this year. She treats it with juice. Does not have any glucose tabs at home. She follows with nephrology, last saw them 4 years ago. She has an appointment tomorrow to get reestablished. Overdue for microalbumin. She is on lisinopril 20 mg and hydrochlorothiazide 12.5. Did not tolerate statins or gemfibrozil or niacin. [facility] Medical History Fatty liver Anxiety and depression Shoulder pain, bilateral Environmental allergies LLL pneumonia Encounter for annual routine gynecological examination Contusion of foot Long-term insulin use Diabetes 1.5, managed as type 1 Surgical History History of revision of total replacement of right knee joint History of colonoscopy History of total left knee replacement (TKR) History of total right knee replacement (TKR) History of breast biopsy History of tonsillectomy Family History Father Type 2 diabetes mellitus Polymyalgia Mother Cancer of thyroid Sister Breast cancer Sister Leukemia Brother Diabetes mellitus HTN (hypertension) High cholesterol Social History Housing: House Alcohol intake: former Patient Tobacco Use Status: Former Tobacco user Tobacco use type: Cigarette Years Smoked: stopped 1984 e-Cigarette/Vaping Use: Never Used Advance Directives Date on File: 03/05/20 Current occupational status: unemployed Cognitive needs: No Hearing needs: No Vision needs: Yes Female Reproductive History Menstrual Age of Menarche: 12 Physical Exam Vital Signs: Last Vital Signs Pulse 70 01/03/24 11:17 BP 120/70 01/03/24 11:17 BMI result Body Mass Index 45.2 Const Other: Absence of Cushingoid features. Absence of acromegalic features. Neck exam reveals nl size thyroid about 15 gms. No thyroid nodules palpable. Heart S1 S2, Reg R/R. No M/R G. Skin exam reveals absence of vitiligo or acanthosis nigricans. Extrem Other: Visual exam of foot performed. No ulcerations or open lesions. No onchomycosis, no callouses. Sensation diminshed to monofilament exam. . Results Reviewed Results Reviewed: Laboratory Last Values Glucose (Clinic) 242 mg/dL (60-115) H 01/03/24 11:21 Laboratory Tests 12/27/23 12/27/23 09:07 09:10 Potassium 4.1 Creatinine 1.05 Estimated GFR 52 Hemoglobin A1c % 7.7 H AST 24 ALT 20 Triglycerides 389 H Cholesterol 183 LDL Cholesterol, Calc 78 HDL Cholesterol 28 L 25-OH Vitamin D Total 50.2 TSH 1.07 Free T4 0.94 Urine Creatinine 106.54 Urine Microalbumin 163.0 Microalb/Creat Ratio 152.9 H Assessment & Plan Assessment & Plan (1) Diabetes 1.5, managed as type 1: Code(s): E13.9 - Other specified diabetes mellitus without complications Category: Medical Plan: continue current rx with the exception of lowering Long acting insulin by 6 units when she starts Jardiance Bone density was in normal range. Liver elastography is pending to confirm fatty liver. If this is confirmed will order liver fibrosis panel along with gada/insulin antibodies/.c peptide I suspect she has type 2. Freestyle download shows an average of 176 and would like to bring this down to the 150s. Dexa wnl. Medications: New empagliflozin (Jardiance) 10 mg PO DAILY 30 days 30 tabs 6RF E13.9 - Other specified diabetes mellitus without complications Coding Level of Care Code Est Pt Level 4 (51233) Complex EM visit Add On G2211 Diagnoses Diabetes 1.5, managed as type 1 E13.9 Time Spent (min) 30 Comment Time spent reviewing labs/provider notes, face to face, chart doc
[2024-01-03 11:17] VITALS: BP 120/70; PULSE 70; BMI 45.2
[2024-01-03 11:46] LABS: Glucose, Whole Blood 242 mg/dL (60-115)
== END 2024-01-03 11:55 | disposition home or self-care (01) ==
PROVIDERS: PCP Internal Medicine; Visit Provider Nurse Practitioner Adult Health
DX: E13.9 Other specified diabetes mellitus without complications (principal)
CPT/HCPCS: 99214; G2211

== ENCOUNTER → 2024-01-03 10:58 | Outpatient (BNVA) | payer MEDICARE, SELFPAY | PROVIDERS: PCP Internal Medicine; Visit Provider Nurse Practitioner Adult Health | DX: E13.9 Other specified diabetes mellitus without complications (principal) | CPT/HCPCS: 82947; 99212 ==

== ENCOUNTER → 2024-01-11 13:22 | Outpatient (RCR) | payer OTHER, SELFPAY ==
--- NOTE | 2020-07-07 10:05 | P.PNHO_ITS ---
[facility] Telehealth - Telehealth Location of Provider rendering services: Hem/onc office. Location of Patient: Home. Patient Identification confirmed using: Name, : Yes Telehealth Method: Via telephone. Patient verbally consented to treatment: Yes. Patient verbally consented to billing insurance company: Yes Patient informed of any privacy concerns related to visit: Yes Medical Summary - Medical Summary Date of Service: 07/07/20 Service Date: 07/07/20 Chief complaint: Follow-up for: History of DVT. Medical Summary: DIAGNOSIS: LEFT LOWER EXTREMITY DVT. CURRENT THERAPY: Coumadin: INR from July 02 was 2.5. In May 2.6. She is to take 12.5 mg for 2 days, 10 mg for the rest of the 5 days. Interval History Interval history: This is a pleasant 64 year-old lady, with whom a follow-up tele visit was held. She tells me she has been feeling relatively well. She is homebound, waiting for the vaccine. She is trying to make the most of it. She has not been eating a lot. Three sq meals a day. She is eating her vegetables. She gets on the bike and does laps around the house. Just trying to maintain healthy habits. She denies easy fatigability. No fever nor chills. She denies any pain or edema of her legs. No headache no dizziness. No chest pain or trouble breathing. She denies abdominal pain nausea vomiting heartburn indigestion. Bowels are working without any gross blood in it. She enjoys a good appetite. She has gained weight. She is in good spirits. Rest of the review of systems is unremarkable. Previous history: She had had symptoms of early satiety, dysphonia and regurgitation. She had an upper endoscopy on December 18, 2019 which revealed: Esophagus: GE junction at 43 cm. No esophagitis or Varner?s. Balloon dilation done at [facility] no tears noted, random esophagus bx taken. small amount of food was noted in esophagus. Squamous epithelium within normal limits. Stomach, biopsies: Mild gastric erythema. Biopsies were obtained. Grade 2 flap. valve on retroflexed examination of the cardia. A 12 mm solitary sessile polyp noted in antrum removed with cold snare. Gastric mucosa with mild chronic, inactive gastritis; negative for Helicobacter pylori; negative for intestinal metaplasia/dysplasia. Stomach, polyp, biopsies: Fundic gland polyp with background mild chronic inactive inflammation; no Helicobacter organisms seen. Duodenum: Normal bulb and descending duodenum Intervention: Biopsies as noted above She had a follow-up appointment with Dr. Mcgill, via televisit. She has already been on omeprazole. It is working. Review of Systems - Constitutional Reports system reviewed and no additional complaints, except as documented - Eyes Reports system reviewed and no additional complaints, except as documented - ENT Reports system reviewed and no additional complaints, except as documented - Cardiovascular Reports system reviewed and no additional complaints, except as documented - Respiratory Reports no additional respiratory complaints - Gastrointestinal Reports system reviewed and no additional complaints, except as documented - Genitourinary Reports no additional female genitourinary complaints - Musculoskeletal Reports system reviewed and no additional complaints, except as documented - Integumentary/Breasts Skin/Breast: Reports no additional skin complaints - Neurologic Reports system reviewed and no additional complaints, except as documented - Psychiatric Reports system reviewed and no additional complaints, except as documented - Endocrine Reports no additional endocrine complaints - Hematologic/Lymphatic Reports system reviewed and no additional complaints, except as documented - Allergic/Immunologic Reports system reviewed and no additional complaints, except as documented Oncology Screenings - ECOG Performance Status ECOG Performance Status: 0 Home Medications and Allergies Home Medications Medication Instructions Recorded Confirmed Type cetirizine 10 mg tablet 10 mg PO DAILY 04/03/20 07/07/20 History albuterol sulfate 90 mcg/actuation 2 puff PO Q6H PRN 05/01/20 07/07/20 History aerosol inhaler Allergies Allergy/AdvReac Type Severity Reaction Status Date / Time medroxyprogesterone [Provera] Allergy Intermediate SKIN Verified 07/02/20 09:13 PEELING atorvastatin [From Lipitor] Allergy Mild MUSCLE Verified 07/02/20 09:13 ACHES, myalgia gemfibrozil [From Lopid] Allergy Mild MUSCLE Verified 07/02/20 09:13 ACHES fluconazole [From DIFLUCAN] Allergy Unknown PER H&P Verified 07/02/20 09:13 niacin Allergy Unknown PER H&P Verified 07/02/20 09:13 [From NIASPAN EXTENDED-RELEASE] nitroglycerin AdvReac Mild LOW BLOOD Verified 07/02/20 09:13 [From Nitro-Dur] PRESSURE Progress Note: A/P (1) Left leg DVT Status: Acute Assessment and plan: This is a pleasant 64 year-old lady with a previous history of DVT. She developed a new DVT mid May. I proceeded with a hypercoagulable workup. This came back negative. She is currently on Warfarin. INR from July 02 was 2.5. She takes 12.5 mg of warfarin for 2 days and 10 mg for rest of the 5 days. She is clinically doing well. Indulging in healthy lifestyle. Her D-dimer is 325. More or less stable. PLAN: She will need long-term anticoagulation, since this is her 2nd episode. I will send a refill to [facility] pharmacy. She will have labs drawn tomorrow at the her primary care's office. She will return in 3 months for a follow-up visit. She will call for any questions or problems prior to that time. 25 minutes were spent coordinating her care including the tele visit, review of labs, review of imaging, and counseling the patient. Thank you, CC: Dr. Ricco Hill. - Time Spent With Patient Total time spent is greater than 50% in coordination of care (as documented) at patient's floor/unit and/or counseling patient: 25 - 35 minutes
--- NOTE | 2020-07-07 10:49 | MHC.HEMONCMA ---
Patient called and requested televisit. Patient was called and reviewed medical history.
--- NOTE | 2020-07-07 12:32 | MHC.HEMONCMA ---
Patient requested telehealth visit. History reviewed with patient.
--- NOTE | 2020-08-26 10:45 | MHC.HEMONCMA ---
Patient called to let us know that last 08/19/2020 she got the Diego and Diego vaccine and developed a blood clot in her right calf. She sees the Coumadin clinic tomorrow to see what her levels are, but was wondering if Dr Contreras would like to see her before or after appt for the blood clot. I did tell her that Dr Contreras is off on but that I would send her a message to see what she says. She is ok with this plan.
[2020-08-27 11:41] VITALS: BP 135/70; PULSE 69; RESP 12; TEMP 36.6; O2SAT 94; BMI 47.2
--- NOTE | 2020-08-27 12:14 | P.PNHO_ITS ---
Medical Summary - Medical Summary Date of Service: 08/27/20 Chief complaint: F/U for: 1. H/O DVT. 2. Recent Diego & diego vaccine. Medical Summary: DIAGNOSIS: LEFT LOWER EXTREMITY DVT. CURRENT THERAPY: Coumadin: INR from today was 2.6. She is to take 12.5 mg for 2 days, 10 mg for the rest of the 5 days. Interval History Interval history: This is a pleasant 64 year-old lady, who is here for an unscheduled visit. She tells me she has received the Diego and Diego COVID vaccine when stable for last. She has actually been feeling relatively well. She noted a red spot medial to her right knee which was a bit tender. She denies any pain or swelling of the lower extremity. Denies any other symptoms of headache no dizziness. No chest pain or trouble breathing. She denies easy fatigability. No fever nor chills. She denies any pain or edema of her legs. No headache no dizziness. No chest pain or trouble breathing. She denies abdominal pain nausea vomiting heartburn indigestion. Bowels are working without any gross blood in it. She enjoys a good appetite. She has gained weight. She is eating her vegetables. She gets on the bike and does laps around the house. Just trying to maintain healthy habits. She is in good spirits. Rest of the review of systems is unremarkable. Previous history: She had had symptoms of early satiety, dysphonia and regurgitation. She had an upper endoscopy on December 18, 2019 which revealed: Esophagus: GE junction at 43 cm. No esophagitis or Varner?s. Balloon dilation done at [facility] no tears noted, random esophagus bx taken. small amount of food was noted in esophagus. Squamous epithelium within normal limits. Stomach, biopsies: Mild gastric erythema. Biopsies were obtained. Grade 2 flap. valve on retroflexed examination of the cardia. A 12 mm solitary sessile polyp noted in antrum removed with cold snare. Gastric mucosa with mild chronic, inactive gastritis; negative for Helicobacter pylori; negative for intestinal metaplasia/dysplasia. Stomach, polyp, biopsies: Fundic gland polyp with background mild chronic inactive inflammation; no Helicobacter organisms seen. Duodenum: Normal bulb and descending duodenum Intervention: Biopsies as noted above She had a follow-up appointment with Dr. Mcgill, via televisit. She has already been on omeprazole. It is working. Review of Systems - Constitutional Reports system reviewed and no additional complaints, except as documented - Eyes Reports system reviewed and no additional complaints, except as documented - ENT Reports system reviewed and no additional complaints, except as documented - Cardiovascular Reports system reviewed and no additional complaints, except as documented - Respiratory Reports no additional respiratory complaints - Gastrointestinal Reports system reviewed and no additional complaints, except as documented - Genitourinary Reports no additional female genitourinary complaints - Musculoskeletal Reports system reviewed and no additional complaints, except as documented - Integumentary/Breasts Skin/Breast: Reports no additional skin complaints, Reports redness - Neurologic Reports system reviewed and no additional complaints, except as documented - Psychiatric Reports system reviewed and no additional complaints, except as documented - Endocrine Reports no additional endocrine complaints - Hematologic/Lymphatic Reports system reviewed and no additional complaints, except as documented - Allergic/Immunologic Reports system reviewed and no additional complaints, except as documented PMF Medical History: Medical History (Last Reviewed 08/27/20 @ 11:42 by Caryl Cervantes) Diabetes 1.5, managed as type 1 Long-term insulin use Family History: Family History (Last Reviewed 08/27/20 @ 11:42 by Caryl Cervantes) Father Type 2 diabetes mellitus Polymyalgia Mother Cancer of thyroid Sister Breast cancer Sister Leukemia Brother Diabetes mellitus HTN (hypertension) High cholesterol Surgical History: Surgical History (Last Reviewed 08/27/20 @ 11:42 by Caryl Cervantes) History of breast biopsy History of colonoscopy History of revision of total replacement of right knee joint History of tonsillectomy History of total left knee replacement (TKR) History of total right knee replacement (TKR) Social History: Social History (Last Updated 08/27/20 @ 11:42 by Caryl Cervantes) Alcohol History: Alcohol intake: former Alcohol History Details: Alcohol intake frequency: holiday/special occasion Tobacco History: Smoking Status: Former smoker Substance Use History: Use of substances other than those prescribed or required for medical reasons : No Smoking status: Former smoker Oncology Screenings - ECOG Performance Status ECOG Performance Status: 0 Home Medications and Allergies Home Medications Medication Instructions Recorded Confirmed Type cetirizine 10 mg tablet 10 mg PO DAILY 04/03/20 07/07/20 History albuterol sulfate 90 mcg/actuation 2 puff PO Q6H PRN 05/01/20 07/07/20 History aerosol inhaler Allergies Allergy/AdvReac Type Severity Reaction Status Date / Time medroxyprogesterone [Provera] Allergy Intermediate SKIN Verified 08/27/20 11:17 PEELING atorvastatin [From Lipitor] Allergy Mild MUSCLE Verified 08/27/20 11:17 ACHES, myalgia gemfibrozil [From Lopid] Allergy Mild MUSCLE Verified 08/27/20 11:17 ACHES fluconazole [From DIFLUCAN] Allergy Unknown PER H&P Verified 08/27/20 11:17 niacin Allergy Unknown PER H&P Verified 08/27/20 11:17 [From NIASPAN EXTENDED-RELEASE] nitroglycerin AdvReac Mild LOW BLOOD Verified 08/27/20 11:17 [From Nitro-Dur] PRESSURE Exam Vital signs: Vital Signs Temp 97.8 F 08/27/20 11:41 Pulse 69 08/27/20 11:41 Resp 12 08/27/20 11:41 BP 135/70 08/27/20 11:41 Pulse Ox 94 08/27/20 11:41 Intake & Output 08/26/20 08/27/20 08/27/20 18:59 06:59 18:59 Other: Weight 136.9 kg Weight in Grams [id number] Weight 136.9 kg Body Mass Index 47.2 - Constitutional Present: no acute distress - Routine HEENT Exam Head: Present: normal inspection Eye: Present: normal appearance ENT: Present: mucous membranes moist - Routine Neck Exam Present: full ROM - Routine Respiratory Exam Present: CTAB - Routine Cardiovascular Exam Cardiovascular: Present: RRR, S1, S2 - Routine Abdominal Exam Present: soft, nontender - Routine Rectal Exam Patient deferred: digital exam - Routine Extremities Exam Present: nontender - Routine Back/Spine/Pelvis Exam Back/Spine: Present: full ROM - Routine Skin Exam Present: intact - Routine Neurological Exam Present: alert, oriented X3 - Routine Psychiatric Exam Present: normal affect Progress Note: A/P (1) Left leg DVT Status: Acute Assessment and plan: This is a pleasant 64 year-old lady with a previous history of DVT. She developed a new DVT mid May. I proceeded with a hypercoagulable workup. This came back negative. She is currently on Warfarin. INR from today was 2.6. She takes 12.5 mg of warfarin for 2 days and 10 mg for rest of the 5 days. She is clinically doing well. Indulging in healthy lifestyle. Her D-dimer was 325. More or less stable. She is here for an unscheduled visit since she got the Diego and Diego vaccine a week ago Monday. She had noted a red spot which was tender to touch in the medial part of the right leg, next to the knee. It has subsided. She denies noticing any pain or edema of the leg. PLAN: I reassured her that the blood clots related to Diego Diego vaccine are extremely rare. They have been noted in only 6 patients out of 7 million doses given. Most of the clots were in younger women less than 50 and occurred within 2 weeks of administration of vaccine. She is already on anticoagulation which should be protective. However God forbid, if she develops any pain or swelling of the leg, any GI or neurological symptoms she should go to the ER at once. She will need long-term anticoagulation, since this is her 2nd episode. I will send a refill to [facility] pharmacy. She will return in one months for a follow-up visit. She will call for any questions or problems prior to that time. Thank you, CC: Dr. Ricco Hill. - Time Spent With Patient Total time spent is greater than 50% in coordination of care (as documented) at patient's floor/unit and/or counseling patient: 15 - 24 minutes
--- NOTE | 2020-08-27 12:53 | MHC.HEMONCMA ---
Pt present for DVT after receiving the J&J vaccine. History reviewed, labs drawn and pt to return in a month.
--- NOTE | 2022-11-16 12:53 | MHC.HEMONC ---
INR reported to Dr Carreno per [facility]. They have advised her on rx dosing. She will re-send Dr Contreras's rx for warfarin to local pharmacy. I asked OA to schedule f/u with Dr Contreras as she has not been here in 2 years.
--- NOTE | 2022-11-16 13:08 | HE.ONCSEC ---
Called and LVM for pt informing her of upcoming appt on 11/22/22 at 9:40am.
--- NOTE | 2023-02-07 12:20 | MHC.HEMONC ---
Triage- Pt called to request a refill of Warfarin. Msg sent to the provider.
== END | disposition home or self-care (01) ==
LOC: HO.ONC 07-07 11:25
PROVIDERS: PCP Internal Medicine; Visit Provider Internal Medicine Medical Oncology
DX: I82.402 Acute embolism and thrombosis of unspecified deep veins of left lower extremity (principal); Z79.01 Long term (current) use of anticoagulants
CPT/HCPCS: 99214

== ENCOUNTER 2024-01-25 11:18 | Outpatient (AMB) | payer MEDICARE, SELFPAY ==
[2024-01-25 11:31] LABS: Prothrombin Time Whole Bld POC 36.8 sec (11.1-13.5); ~PT, ~INR - Anti Coag Clinic 3.1 (0.9-1.1)
--- NOTE | 2024-01-25 11:38 | MHC.OFFVISCO ---
Intake Intake Visit Reasons: Anticoagulation Allergies medroxyprogesterone [Provera] Allergy (Intermediate, Verified 01/25/24 11:22) SKIN PEELING niacin [From NIASPAN EXTENDED-RELEASE] Allergy (Intermediate, Verified 01/25/24 11:22) facial flushing atorvastatin [From Lipitor] Allergy (Mild, Verified 01/25/24 11:22) MUSCLE ACHES, myalgia gemfibrozil [From Lopid] Allergy (Mild, Verified 01/25/24 11:22) MUSCLE ACHES fluconazole [From DIFLUCAN] Allergy (Unknown, Verified 01/25/24 11:22) PER H&P nitroglycerin [From Nitro-Dur] Adverse Reaction (Mild, Verified 01/25/24 11:22) LOW BLOOD PRESSURE Medication List - Last Reconciled 01/25/24 by Kathia Kennedy RN albuterol sulfate 90 mcg/actuation 2 puffs PO Q6H PRN 30 days blood sugar diagnostic (FreeStyle Lite Strips) Use to check blood sugars twice daily blood-glucose meter,continuous (FreeStyle Ara 3 Barrett) As directed blood-glucose sensor (FreeStyle Ara 3 Sensor device) Apply every 14 days As directed citalopram 20 mg PO DAILY 90 days FreeStyle Lite Meter (blood-glucose meter) As directed NS hydrochlorothiazide 12.5 mg PO DAILY insulin glargine (Lantus Solostar U-100 Insulin) 60 units (0.6 mL) subcut BID 90 days lancets (BD Ultra Fine Lancets) Use to check blood sugar twice daily lancets (FreeStyle Lancets) As directed lisinopril 20 mg PO DAILY 90 days metformin 500 mg PO DAILY 90 days omeprazole 20 mg PO DAILY pen needle, 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) BID PRN warfarin 10 mg See Protocol PO DAILY Nursing Note INR: 3.1 almost therapeutic range Medications and supplements reviewed No changes in health, diet, medications, or supplements, Has a light fading purple bruise on right hand finger from moving construction debris, no other s/sx of bleeding bruising or clotting Bleeding, bruising, clotting discussed Nutritional guidance given- eat greens today- review food list weekly Dose: 10 mg daily F/U INR: 4 weeks Patient verbalizes understanding of instructions given Anti-Coag Initial Assessment Social Hx Patient Tobacco Use Status: Former Tobacco user Tobacco use type: Cigarette alcohol intake: former Alcohol intake frequency: holidays/special occasions only Coding Level of Care Code Est Patient Level 1 Diagnoses Current use of anticoagulant therapy Z79.01 Assessment & Plan Assessment & Plan (1) Current use of anticoagulant therapy: 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
== END 2024-01-25 11:41 | disposition home or self-care (01) ==
LOC: HO.ACS 11:18
PROVIDERS: PCP Internal Medicine; Visit Provider Internal Medicine
DX: Z79.01 Long term (current) use of anticoagulants (principal)

== ENCOUNTER → 2024-01-25 11:18 | Outpatient (BNVA) | payer MEDICARE, SELFPAY | PROVIDERS: PCP Internal Medicine; Visit Provider Internal Medicine | DX: Z86.718 Personal history of other venous thrombosis and embolism (principal); Z79.01 Long term (current) use of anticoagulants; Z51.81 Encounter for therapeutic drug level monitoring | CPT/HCPCS: 85610; 99211 ==

== ENCOUNTER 2024-02-22 14:21 | Outpatient (AMB) | payer MEDICARE, SELFPAY ==
[2024-02-22 14:32] LABS: Prothrombin Time Whole Bld POC 25.4 sec (11.1-13.5); ~PT, ~INR - Anti Coag Clinic 2.1 (0.9-1.1)
--- NOTE | 2024-02-22 14:45 | MHC.OFFVISCO ---
Intake Intake Visit Reasons: Anticoagulation Allergies medroxyprogesterone [Provera] Allergy (Intermediate, Verified 02/22/24 14:27) SKIN PEELING niacin [From NIASPAN EXTENDED-RELEASE] Allergy (Intermediate, Verified 02/22/24 14:27) facial flushing atorvastatin [From Lipitor] Allergy (Mild, Verified 02/22/24 14:27) MUSCLE ACHES, myalgia gemfibrozil [From Lopid] Allergy (Mild, Verified 02/22/24 14:27) MUSCLE ACHES fluconazole [From DIFLUCAN] Allergy (Unknown, Verified 02/22/24 14:27) PER H&P nitroglycerin [From Nitro-Dur] Adverse Reaction (Mild, Verified 02/22/24 14:27) LOW BLOOD PRESSURE Medication List - Last Reconciled 02/22/24 by Bernadette Barreto, RN albuterol sulfate 90 mcg/actuation 2 puffs PO Q6H PRN 30 days blood sugar diagnostic (FreeStyle Lite Strips) Use to check blood sugars twice daily blood-glucose meter,continuous (FreeStyle Ara 3 Sherman) As directed blood-glucose sensor (FreeStyle Ara 3 Sensor device) Apply every 14 days As directed calcium carbonate-vitamin D3 (Calcium 600 + D(3)) PO cholecalciferol (vitamin D3) 25 mcg PO DAILY citalopram 20 mg PO DAILY 90 days FreeStyle Lite Meter (blood-glucose meter) As directed NS hydrochlorothiazide 12.5 mg PO DAILY insulin glargine (Lantus Solostar U-100 Insulin) 60 units (0.6 mL) subcut BID 90 days lancets (BD Ultra Fine Lancets) Use to check blood sugar twice daily lancets (FreeStyle Lancets) As directed lisinopril 20 mg PO DAILY 90 days metformin 500 mg PO DAILY 90 days omeprazole 20 mg PO DAILY pen needle, 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) BID PRN vitamin B complex 1 tab PO DAILY warfarin 10 mg See Protocol PO DAILY Nursing Note INR: 2.1 in therapeutic range of 2-3 Medications and supplements reviewed No changes in health, diet, medications, or supplements, Denies any signs and symptoms of bleeding or bruising or clotting. 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
== END 2024-02-22 14:54 | disposition home or self-care (01) ==
LOC: HO.ACS 14:21
PROVIDERS: PCP Internal Medicine; Visit Provider Internal Medicine
DX: Z79.01 Long term (current) use of anticoagulants (principal)

== ENCOUNTER → 2024-02-22 14:21 | Outpatient (BNVA) | payer MEDICARE, SELFPAY | PROVIDERS: PCP Internal Medicine; Visit Provider Internal Medicine | DX: Z86.718 Personal history of other venous thrombosis and embolism (principal); Z79.01 Long term (current) use of anticoagulants; Z51.81 Encounter for therapeutic drug level monitoring | CPT/HCPCS: 85610; 99211 ==

== ENCOUNTER 2024-02-28 14:03 | Outpatient (AMB) | payer MEDICARE, SELFPAY ==
[2024-02-28 14:10] VITALS: BP 131/60; PULSE 70; BMI 45.2
--- NOTE | 2024-02-28 14:10 | MHC.OFFVIS ---
Vital Signs 02/28/24 14:10 Height 5 ft 7 in Weight 288 lb 12.889 oz BMI 45.2 BP 131/60 Blood Pressure Location Rt brachial Position Sitting Pulse 70 Comment Patient step on scale with purse and water jug, declined to put it down. Intake Visit Reasons: Colonoscopy Intake Note: Janna presents as a new patient for colonoscopy screening. CC: Patient denies having any GI symptoms or concerns today. Outside Parts Sales Required: No Accompanied by: Self / Same As Patient Allergies medroxyprogesterone [Provera] Allergy (Intermediate, Verified 04/26/24 11:33) SKIN PEELING niacin [From NIASPAN EXTENDED-RELEASE] Allergy (Intermediate, Verified 04/26/24 11:33) facial flushing atorvastatin [From Lipitor] Allergy (Mild, Verified 04/26/24 11:33) MUSCLE ACHES, myalgia gemfibrozil [From Lopid] Allergy (Mild, Verified 04/26/24 11:33) MUSCLE ACHES fluconazole [From DIFLUCAN] Allergy (Unknown, Verified 04/26/24 11:33) PER H&P empagliflozin [From Jardiance] Adverse Reaction (Mild, Verified 04/26/24 11:33) urinary incontinence nitroglycerin [From Nitro-Dur] Adverse Reaction (Mild, Verified 04/26/24 11:33) LOW BLOOD PRESSURE HPI HPI Colonoscopy: Details: 68-year-old female here for preprocedural meeting to discuss a screening colonoscopy. She is referred by Ricco [facility]. Kt Pascual Asthma History of DVT Chronic anticoagulation - coumadin Dr. Russell Morbid obesity Diabetes Hypertension Chronic kidney disease stage 2 GERD Anxiety Urinary incontinence Fatty liver * SURGICAL HISTORY Right total knee replacement Colonoscopy-2009 [place] Left total knee replacement Tonsillectomy Breast biopsy * ALLERGIES Medrol progesterone - pt unsure Niacin Atorvastatin Gemfibrozil Fluconazole Nitroglycerin - hypotension Morphone - resp depression * MEDITECH LABS: in chart TODAY'S VISIT She disliked the prep with the last colonoscopy - will try Miralax prep NO bowel or upper GI problems. Her asthma is seasonal and well controlled and she denies cardiac problems. No ID problems. No anes or sed problems. There is no known FHX of crc or polyps. [facility] Medical History (Updated 04/26/24 @ 13:05 by Gordon Contreras MD) Fatty liver determined by biopsy Urgency incontinence Fatty liver Anxiety and depression Shoulder pain, bilateral Environmental allergies LLL pneumonia Encounter for annual routine gynecological examination Contusion of foot Long-term insulin use Diabetes 1.5, managed as type 1 Surgical History History of revision of total replacement of right knee joint History of colonoscopy History of total left knee replacement (TKR) History of total right knee replacement (TKR) History of breast biopsy History of tonsillectomy Family History Father Type 2 diabetes mellitus Polymyalgia Mother Cancer of thyroid Sister Breast cancer Sister Leukemia Brother Diabetes mellitus HTN (hypertension) High cholesterol Social History (Updated 04/26/24 @ 11:32 by Laurence Delgado) Household Members: None Housing: House Alcohol intake: former Patient Tobacco Use Status: Former Tobacco user Tobacco use type: Cigarette Years Smoked: stopped 1984 e-Cigarette/Vaping Use: Never Used Use of substances other than those prescribed or required for medical reasons: No Have you been hit, kicked, punched, or otherwise hurt by someone within the past year? If so, by whom?: No Do you feel safe in your current relationship?: Yes Advance Directives Date on File: 03/05/20 Do you have thoughts of harming others: None Do you have a plan to hurt others: No Plan Patient : No service: No Current occupational status: employed Cognitive needs: No Hearing needs: No Vision needs: Yes Female Reproductive History Menstrual Age of Menarche: 12 Review of Systems Const Denies fatigue, Denies fever(s), Denies night sweats, Denies poor appetite and Denies weight loss ENT Reports Normal hearing present, Denies dysphagia, Denies odynophagia, Denies throat swelling and Denies tongue swelling Card Reports no additional complaints Resp Reports no additional complaints GI Details: Denies abdominal pain, Denies melena, Denies bloating, Denies hematochezia, Denies constipation, Denies GI cramping, Denies dysphagia, Denies excessive flatus, Denies early satiety, Denies heartburn, Denies diarrhea, Denies nausea, Denies odynophagia, Denies vomiting and Denies hematemesis Skin/Breast Denies pruritus, Denies lesions, Denies rash and Denies jaundice Neuro Reports Normal hearing present and Denies Abnormal speech present Endo Denies fatigue Aller/Immun Denies throat swelling and Denies tongue swelling Physical Exam Vital Signs: Last Vital Signs Pulse 70 02/28/24 14:10 BP 131/60 02/28/24 14:10 BMI result Body Mass Index 45.2 Const General: cooperative, no acute distress, well developed and well groomed Nutritional Appearance: well nourished, obese and overweight Orientation/consciousness: oriented to person, oriented to place and oriented to time Limitations: No language barrier, ambulation with cane, ambulation with walker and wheelchair HEENT Head: Yes normocephalic and Yes atraumatic Eyes General: appearance normal, both eyes and all related structures Pupils: Equal, round and reactive pupils present Neck Neck: Yes normal visual inspection and Yes no lymphadenopathy Thyroid: Thyroid normal Resp Effort & Inspection: normal respiratory effort and able to speak in complete sentences Auscultation: clear to auscultation bilaterally Cardio Rate: regular rate Rhythm: regular rhythm Heart sounds: Normal, physiologic split S2 sound present Peripheral pulses: radial pulses present and posterior tibial pulses present GI Inspection: No distended, Yes Abdominal panniculus present, Yes obesity and Yes striae Palpation (GI): Soft to palpation, nontender, no guarding, not rigid and No hepatosplenomegaly present Percussion: Yes normal to percussion Auscultation: normal bowel sounds Rectal Exam - Female: deferred Skin General skin exam: no rashes or lesions noted, turgor normal, skin not dry, no jaundice, No spider nevi and no striae Rashes: no rashes Nails: normal Neuro General: oriented to person, oriented to place and oriented to time Cranial nerves: Yes Equal, round and reactive pupils present and Yes Normal hearing present Speech: No Abnormal speech present Extrem General: Yes normal to inspection, No clubbing, No cyanosis, Yes edema (mild pitting) and Yes venous stasis dermatitis Psych Thought process: Normal thought process present and not confabulating Thought content: Normal thought content present Insight: Good insight present (Psych) Judgement: Good judgement present (Psych) Assessment & Plan Assessment & Plan (1) Pre-op examination: Code(s): Z01.818 - Encounter for other preprocedural examination Category: Medical Plan She disliked the prep with the last colonoscopy - will try Miralax prep NO bowel or upper GI problems. Her asthma is seasonal and well controlled and she denies cardiac problems. No ID problems. No anes or sed problems. There is no known FHX of crc or polyps. Orders: Orders Colonoscopy - GI Use Only 02/28/24 Z01.818 - Encounter for other preprocedural examination Medications: New bisacodyl (Dulcolax (bisacodyl)) 10 mg (2 x 5 mg) PO BEDTIME 4 tabs 0RF 2 days polyethylene glycol 3350 (Miralax) 238 grams PO ONCE 238 grams 0RF colonoscopy prep 1 day Coding Level of Care Code New Pt Level 3 (51231) Diagnoses Pre-op examination Z01.818
== END 2024-02-28 14:53 | disposition home or self-care (01) ==
PROVIDERS: PCP Internal Medicine; Visit Provider Nurse Practitioner
DX: Z01.818 Encounter for other preprocedural examination (principal); Z12.11 Encounter for screening for malignant neoplasm of colon
CPT/HCPCS: 99203

== ENCOUNTER → 2024-02-28 14:03 | Outpatient (BNVA) | payer MEDICARE, SELFPAY | PROVIDERS: PCP Internal Medicine; Visit Provider Nurse Practitioner | DX: Z01.818 Encounter for other preprocedural examination (principal) | CPT/HCPCS: 99202 ==

== ENCOUNTER 2024-03-21 11:26 | Outpatient (AMB) | payer MEDICARE, SELFPAY ==
[2024-03-21 11:29] VITALS: BP 120/74; PULSE 73; O2SAT 94; BMI 43.7
--- NOTE | 2024-03-21 11:29 | A.OFFPC_ITS ---
Vital Signs 03/21/24 11:29 Height 5 ft 7 in Weight 279 lb BMI 43.7 BP 120/74 Blood Pressure Location Lt brachial Position Sitting Pulse 73 Pulse Source Pulse Oximeter Pulse Oximetry (%) 94 Oxygen Delivery Method Room Air Intake Visit Reasons: ear cleaning Allergies medroxyprogesterone [Provera] Allergy (Intermediate, Verified 03/21/24 11:29) SKIN PEELING niacin [From NIASPAN EXTENDED-RELEASE] Allergy (Intermediate, Verified 03/21/24 11:29) facial flushing atorvastatin [From Lipitor] Allergy (Mild, Verified 03/21/24 11:29) MUSCLE ACHES, myalgia gemfibrozil [From Lopid] Allergy (Mild, Verified 03/21/24 11:29) MUSCLE ACHES fluconazole [From DIFLUCAN] Allergy (Unknown, Verified 03/21/24 11:29) PER H&P nitroglycerin [From Nitro-Dur] Adverse Reaction (Mild, Verified 03/21/24 11:29) LOW BLOOD PRESSURE Medication List - Last Reconciled 03/21/24 by Ayla Pretty PA-C albuterol sulfate 90 mcg/actuation 2 puffs PO Q6H PRN 30 days bisacodyl (Dulcolax (bisacodyl)) 10 mg (2 x 5 mg) PO BEDTIME 2 days blood sugar diagnostic (FreeStyle Lite Strips) Use to check blood sugars twice daily blood-glucose meter,continuous (FreeStyle Ara 3 Dameron) As directed blood-glucose sensor (FreeStyle Ara 3 Sensor device) Apply every 14 days As directed calcium carbonate-vitamin D3 (Calcium 600 + D(3)) PO DAILY cholecalciferol (vitamin D3) 25 mcg PO DAILY citalopram 20 mg PO DAILY 90 days FreeStyle Lite Meter (blood-glucose meter) As directed NS hydrochlorothiazide 12.5 mg PO DAILY insulin glargine (Lantus Solostar U-100 Insulin) 60 units (0.6 mL) subcut BID 90 days lancets (BD Ultra Fine Lancets) Use to check blood sugar twice daily lancets (FreeStyle Lancets) As directed lisinopril 20 mg PO DAILY 90 days metformin 500 mg PO DAILY 90 days omeprazole 20 mg PO DAILY pen needle, 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) BID PRN polyethylene glycol 3350 (Miralax) 238 grams PO ONCE 1 day vitamin B complex 1 tab PO DAILY warfarin 10 mg See Protocol PO DAILY Tobacco use date assessed: 09/26/23 Fall risk assessment: No Falls in past year Last assessed Fall Risk: 03/21/24 Dental Screening Dental Screen Date: 09/26/23 HPI ear cleaning HPI Details 68-year-old female with past medical his tory diabetes mellitus on insulin, diabetic nephropathy, GERD, chronic kidney disease, hypertension, generalized anxiety disorder, fatty liver disease, and recurrent DVT last seen December 2023 coming in for cerumen removal. Patient states she previously would go for ear flushing every three months and would like to continue on this schedule. [facility] Medical History Fatty liver Anxiety and depression Shoulder pain, bilateral Environmental allergies LLL pneumonia Encounter for annual routine gynecological examination Contusion of foot Long-term insulin use Diabetes 1.5, managed as type 1 Surgical History History of revision of total replacement of right knee joint History of colonoscopy History of total left knee replacement (TKR) History of total right knee replacement (TKR) History of breast biopsy History of tonsillectomy Family History Father Type 2 diabetes mellitus Polymyalgia Mother Cancer of thyroid Sister Breast cancer Sister Leukemia Brother Diabetes mellitus HTN (hypertension) High cholesterol Social History Housing: House Alcohol intake: former Patient Tobacco Use Status: Former Tobacco user Tobacco use type: Cigarette Years Smoked: stopped 1984 e-Cigarette/Vaping Use: Never Used Advance Directives Date on File: 03/05/20 Current occupational status: unemployed Cognitive needs: No Hearing needs: No Vision needs: Yes Female Reproductive History Menstrual Age of Menarche: 12 Questionnaire Thrive Questionnaire Date Thrive assessed: 09/12/23 AUDIT C Alcohol Use Questionnaire (AUDIT-C) 1. How often do you have a drink containing alcohol?: Never 3. How often do you have six or more drinks on one occasion?: Never Total Score: 0 Score Reviewed/Action Taken: Yes LEX-7 AMB Questionnaire LEX-7 Date LEX - 7 assessed: 09/12/23 Source: Developed by DrsJagdish Mitchell, Molly Duran, Earl Muhammad and colleagues, with an educational willem from [employer]. Review of Systems Const Denies body aches and Denies fever(s) Eyes Reports no additional complaints ENT Reports Normal hearing present, Denies ear discharge and Denies otalgia Card Reports no additional complaints Resp Reports no additional complaints GI Reports no additional complaints Neuro Reports Normal hearing present Physical exam (Primary Care) Vital Signs: Last Vital Signs Pulse 73 03/21/24 11:29 BP 120/74 03/21/24 11:29 Pulse Ox 94 03/21/24 11:29 Oxygen Delivery Method Room Air 03/21/24 11:29 BMI result Body Mass Index 43.7 Tobacco/Smoking Status: Tobacco use Status Tobacco use date assessed 09/26/23 03/21/24 11:30 Patient Tobacco Use Status Former Tobacco user 03/21/24 11:30 Tobacco use type Cigarette 03/21/24 11:30 e-Cigarette/Vaping Use Never Used 03/21/24 11:30 Thrive Assessment: Date of Thrive Assessment Date Thrive assessed 09/12/23 03/21/24 11:30 Const General: cooperative, healthy appearing, comfortable and no acute distress Orientation/consciousness: patient oriented x3 HENMT Head: Yes normocephalic Ears: hearing grossly normal bilaterally, TM's normal bilaterally and EAC's normal General nose exam: Normal external nose present Eyes General: appearance normal, both eyes and all related structures Conjunctivae: conjunctivae normal Neck Neck: Yes full ROM and Yes no lymphadenopathy Resp Effort & Inspection: normal respiratory effort Cardio Rate: regular rate Rhythm: regular rhythm Skin General skin exam: no rashes or lesions noted Neuro General: patient oriented x3 Cranial nerves: Yes Normal hearing present Gait exam (Neuro): Normal gait present Extrem General: Yes normal to inspection, Yes full ROM and No edema Psych Affect: normal affect Attitude: cooperative Insight: Good insight present (Psych) Judgement: Good judgement present (Psych) Coding Level of Care Code Est Pt Level 3 (40821) Diagnoses Impacted cerumen H61.20 Asthma J45.909 Hypertension, essential I10 Morbid obesity E66.01 Assessment & Plan Assessment & Plan (1) Impacted cerumen: Code(s): H61.20 - Impacted cerumen, unspecified ear Category: Medical Plan: No cerumen in bilateral ear canals. advised to follow up as needed for this concern. (2) Asthma: Code(s): J45.909 - Unspecified asthma, uncomplicated Category: Medical Plan: Asthma currently controlled on present medications. Continue on albuterol inhaler as needed. Avoid triggers such as allergies. (3) Hypertension, essential: Code(s): I10 - Essential (primary) hypertension Category: Medical Plan: Continue on current blood pressure medication. Avoid salt intake and encourage healthy diet and regular exercise. (4) Morbid obesity: Code(s): E66.01 - Morbid (severe) obesity due to excess calories Category: Medical Plan: Healthy diet and regular exercise is encouraged. Patient has been working out 5 days/week and has noticed an improvement in mood, energy levels and has noticed weight loss. Noted 9 pound weight loss since last visit. Plan This note was constructed using voice recognition software. While every effort has been made to ensure accuracy and sales and marketing manager, still areas may have been included sometimes these areas may affect the content or meeting of the given symptoms. Total time spent caring for the patient today was 30 minutes. This includes time spent before the visit reviewing the chart, time spent during the visit, and time spent after the visit and documentation. Medications: Refilled albuterol sulfate 90 mcg/actuation 2 puffs PO Q6H 30 days PRN 8.5 grams 0RF Wheezing J45.909 - Unspecified asthma, uncomplicated citalopram 20 mg PO DAILY 90 days 90 tabs 3RF F32.9 - Major depressive disorder, single episode, unspecified, F41.9 - Anxiety disorder, unspecified omeprazole 20 mg PO DAILY 90 caps 0RF K21.9 - Gastro-esophageal reflux disease without esophagitis pen needle, 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) BID PRN 100 ea 3RF hydrochlorothiazide 12.5 mg PO DAILY 90 caps 0RF I10 - Essential (primary) hypertension insulin glargine (Lantus Solostar U-100 Insulin) 60 units (0.6 mL) subcut BID 90 days 108 mL 3RF lisinopril 20 mg PO DAILY 90 days 90 tabs 3RF I10 - Essential (primary) hypertension metformin 500 mg PO DAILY 90 days 90 tabs 3RF E13.9 - Other specified diabetes mellitus without complications Discontinued FreeStyle Lite Meter (blood-glucose meter) Discontinued Reason: Patient no longer taking As directed 1 ea 0RF NS E13.9 - Other specified diabetes mellitus without complications blood sugar diagnostic (FreeStyle Lite Strips) Discontinued Reason: Patient no longer taking Use to check blood sugars twice daily 100 ea 3RF E13.9 - Other specified diabetes mellitus without complications lancets (BD Ultra Fine Lancets) Discontinued Reason: Patient no longer taking Use to check blood sugar twice daily 100 ea 3RF E13.9 - Other specified diabetes mellitus without complications
== END 2024-03-21 12:41 | disposition home or self-care (01) ==
LOC: HO.HMCH 11:27
PROVIDERS: PCP Internal Medicine
DX: J45.909 Unspecified asthma, uncomplicated (principal); E66.01 Morbid (severe) obesity due to excess calories; Z68.41 Body mass index [BMI] 40.0-44.9, adult; I10 Essential (primary) hypertension

== ENCOUNTER → 2024-03-21 11:26 | Outpatient (BNVA) | payer MEDICARE, SELFPAY | PROVIDERS: PCP Internal Medicine | DX: H61.20 Impacted cerumen, unspecified ear (principal); J45.909 Unspecified asthma, uncomplicated; I10 Essential (primary) hypertension; E66.01 Morbid (severe) obesity due to excess calories | CPT/HCPCS: 99212 ==

== ENCOUNTER 2024-03-22 10:29 | Outpatient (AMB) | payer MEDICARE, SELFPAY ==
--- NOTE | 2024-03-22 10:31 | MHC.OFFVIS ---
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 Present ([place]) Allergies medroxyprogesterone [Provera] Allergy (Intermediate, Verified 03/22/24 11:18) SKIN PEELING niacin [From NIASPAN EXTENDED-RELEASE] Allergy (Intermediate, Verified 03/22/24 11:18) facial flushing atorvastatin [From Lipitor] Allergy (Mild, Verified 03/22/24 11:18) MUSCLE ACHES, myalgia gemfibrozil [From Lopid] Allergy (Mild, Verified 03/22/24 11:18) MUSCLE ACHES fluconazole [From DIFLUCAN] Allergy (Unknown, Verified 03/22/24 11:18) PER H&P nitroglycerin [From Nitro-Dur] Adverse Reaction (Mild, Verified 03/22/24 11:18) LOW BLOOD PRESSURE HPI Comments Details: She is a postmenopausal woman 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 She is doing well with concerns: She reports an episode of vaginal bleeding approximately 3 weeks ago and attributed to her medication Jardiance, she since discontinued. Also has concerns for incontinence, stress and urgency. Attempting to eat a healthy diet with calcium and vitamin D and stays active with exercise-goes to the gym 6 days a week. Currently not sexually active. may consider in the near future. Denies any vaginal dryness or irritation. STI testing offered; she declined. Last pap smear; 2021. Last mammogram; 2023. Colonoscopy is scheduled 06/2024. Denies any family history of ovarian or colon cancer. Family history of breast cancer sister. [facility] Medical History Fatty liver Anxiety and depression Shoulder pain, bilateral Environmental allergies LLL pneumonia Encounter for annual routine gynecological examination Contusion of foot Long-term insulin use Diabetes 1.5, managed as type 1 Surgical History History of revision of total replacement of right knee joint History of colonoscopy History of total left knee replacement (TKR) History of total right knee replacement (TKR) History of breast biopsy History of tonsillectomy Family History Father Type 2 diabetes mellitus Polymyalgia Mother Cancer of thyroid Sister Breast cancer Sister Leukemia Brother Diabetes mellitus HTN (hypertension) High cholesterol Social History Housing: House Alcohol intake: former Patient Tobacco Use Status: Former Tobacco user Tobacco use type: Cigarette Years Smoked: stopped 1984 e-Cigarette/Vaping Use: Never Used Advance Directives Date on File: 03/05/20 Current occupational status: unemployed Cognitive needs: No Hearing needs: No Vision needs: Yes Female Reproductive History Menstrual Age of Menarche: 12 Total pregnancies: 2 Full term: 2 Date of last pap smear: 10/07/21 (negative pap smear, negative hpv) Date of Mammogram: 09/29/23 (bi-rad 1) Date of last Bone Density Screenin12/19/23 Review of Systems Const All systems reviewed & are unremarkable except as noted in HPI and below Reports as per HPI Eyes Reports no additional complaints ENT Reports no additional complaints Card Reports no additional complaints Resp Reports no additional complaints GI Reports as per HPI and Reports no additional complaints Reports as per HPI Musc Reports no additional complaints Skin/Breast Reports as per HPI Neuro Reports no additional complaints Psych Reports no additional complaints Endo Reports no additional complaints Bernard/Lymph Reports no additional complaints Aller/Immun Reports no additional complaints Physical Exam Vital Signs: Last Vital Signs BP 104/58 L 03/22/24 10:39 BMI result Body Mass Index 43.8 Const General: cooperative, healthy appearing, no acute distress, well developed and alert Orientation/consciousness: patient oriented x3 HEENT Head: Yes normal to inspection Eyes General: appearance normal, both eyes and all related structures Neck Neck: Yes normal visual inspection Thyroid: Thyroid normal Chest Chest palpation & inspection: normal inspection of the chest and other (no puckering, dimpling, peau de orange, retraction, discharge, masses) Breast/axilla inspection: normal inspection of the breasts Breast/axilla palpation: normal palpation of the breasts Resp Effort & Inspection: normal respiratory effort GI Inspection: Yes normal to inspection Palpation (GI): Soft to palpation Rectal Exam - Female: deferred General: Yes bladder normal to palpation External Female Exam: normal external appearance and normal appearance of the urethra Speculum Exam - Vagina: normal appearance of the vagina, normal palpation, normal vaginal discharge and vagina atrophic Speculum Exam - Cervix: normal appearance of the cervix and normal palpation Bimanual exam- vagina & uterus: normal bimanual exam, normal palpation, uterine size normal, bladder normal to palpation, normal palpation and non-tender Bimanual Exam- Adnexa, other: no masses Skin General skin exam: no rashes or lesions noted Rashes: no rashes Neuro General: patient oriented x3 Cognition (Neuro): normal cognition Extrem General: Yes normal to inspection Psych Attitude: cooperative Thought process: Normal thought process present Results AMB INR Fingerstick AMB INR Fingerstick 2.1 Last Edit by Bernadette Barreto RN on 03/22/24 11:32 interface delay Assessment & Plan Assessment & Plan (1) Encounter for well woman exam with routine gynecological exam: Code(s): Z01.419 - Encounter for gynecological examination (general) (routine) without abnormal findings Category: Medical (2) Urgency incontinence: Code(s): N39.41 - Urge incontinence Category: Medical (3) Mixed incontinence: Code(s): N39.46 - Mixed incontinence Category: Medical (4) Postmenopausal bleeding: Code(s): N95.0 - Postmenopausal bleeding Plan Discussed: Current recommendations for pap smears per ASCCP guidelines. Breast awareness, periodic self breast exams and yearly mammogram. Maintain a healthy lifestyle, well balanced diet including Calcium 1,200 mg and Vitamin D 600 IU daily, and routine exercise. Use of condoms for STI prevention if indicated. Contact the office with any further postmenopausal bleeding. Plan pelvic ultrasound and consider endometrial biopsy to rule out uterine cancer. Follow up for ultrasound results in person. Referral placed to urology and pelvic floor therapy. Patient verbalizes understanding and agrees to the plan of care. She was given opportunity to ask questions and all questions were answered to the best of my ability. 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 This note is constructed using voice recognition software. While every effort has been made to ensure accuracy, hardwood floor refinisher errors may have been included. Orders: Orders US pelvic and transvaginal Today N95.0 - Postmenopausal bleeding Referrals Urology Referral N39.41 - Urge incontinence, N39.46 - Mixed incontinence Pelvic Solid Waste Division Supervisor Referral N39.46 - Mixed incontinence Coding Level of Care Code Est Pt Prev Care >65y(77917) Diagnoses Encounter for well woman exam with routine gynecological exam Z01.419 Urgency incontinence N39.41 Mixed incontinence N39.46 Postmenopausal bleeding N95.0
[2024-03-22 10:39] VITALS: BP 104/58; BMI 43.8
== END 2024-03-22 11:10 | disposition home or self-care (01) ==
PROVIDERS: PCP Internal Medicine; Visit Provider Advanced Practice Midwife
DX: Z01.419 Encounter for gynecological examination (general) (routine) without abnormal findings (principal); N39.41 Urge incontinence; N39.46 Mixed incontinence; N95.0 Postmenopausal bleeding
CPT/HCPCS: 99397

== ENCOUNTER → 2024-03-22 10:29 | Outpatient (BNVA) | payer MEDICARE, SELFPAY | PROVIDERS: PCP Internal Medicine; Visit Provider Advanced Practice Midwife | DX: Z01.419 Encounter for gynecological examination (general) (routine) without abnormal findings (principal); N39.41 Urge incontinence; N39.46 Mixed incontinence; N95.0 Postmenopausal bleeding; Z86.718 Personal history of other venous thrombosis and embolism; Z79.01 Long term (current) use of anticoagulants; Z51.81 Encounter for therapeutic drug level monitoring | CPT/HCPCS: 85610; 99211; 99212; 99397; G0101 ==

== ENCOUNTER 2024-03-22 11:16 | Outpatient (AMB) | payer MEDICARE, SELFPAY ==
--- NOTE | 2024-03-22 11:30 | MHC.OFFVISCO ---
Intake Intake Visit Reasons: Anticoagulation Allergies medroxyprogesterone [Provera] Allergy (Intermediate, Verified 03/22/24 11:18) SKIN PEELING niacin [From NIASPAN EXTENDED-RELEASE] Allergy (Intermediate, Verified 03/22/24 11:18) facial flushing atorvastatin [From Lipitor] Allergy (Mild, Verified 03/22/24 11:18) MUSCLE ACHES, myalgia gemfibrozil [From Lopid] Allergy (Mild, Verified 03/22/24 11:18) MUSCLE ACHES fluconazole [From DIFLUCAN] Allergy (Unknown, Verified 03/22/24 11:18) PER H&P nitroglycerin [From Nitro-Dur] Adverse Reaction (Mild, Verified 03/22/24 11:18) LOW BLOOD PRESSURE Medication List - Last Reconciled 03/22/24 by Bernadette Barreto, RN albuterol sulfate 90 mcg/actuation 2 puffs PO Q6H PRN 30 days bisacodyl (Dulcolax (bisacodyl)) 10 mg (2 x 5 mg) PO BEDTIME 2 days blood-glucose meter,continuous (FreeStyle Ara 3 [place]) As directed blood-glucose sensor (FreeStyle Ara 3 Sensor device) Apply every 14 days As directed calcium carbonate-vitamin D3 (Calcium 600 + D(3)) PO DAILY citalopram 20 mg PO DAILY 90 days hydrochlorothiazide 12.5 mg PO DAILY insulin glargine (Lantus Solostar U-100 Insulin) 60 units (0.6 mL) subcut BID 90 days lisinopril 20 mg PO DAILY 90 days metformin 500 mg PO DAILY 90 days omeprazole 20 mg PO DAILY pen needle, 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) BID PRN polyethylene glycol 3350 (Miralax) 238 grams PO ONCE 1 day vitamin B complex 1 tab PO DAILY warfarin 10 mg See Protocol PO DAILY Nursing Note INR: 2.1 in therapeutic range of 2-3 Medications and supplements reviewed No changes in health, diet, medications, or supplements, Denies any signs and symptoms of bleeding or bruising or clotting. Bleeding, bruising, clotting discussed Nutritional guidance given Dose: 10mg daily F/U INR: 4 weeks Patient verbalizes understanding of instructions given Anti-Coag Initial Assessment Social Hx Patient Tobacco Use Status: Former Tobacco user Tobacco use type: Cigarette alcohol intake: former Alcohol intake frequency: holidays/special occasions only Coding Level of Care Code Est Patient Level 1 Diagnoses Current use of anticoagulant therapy Z79.01 Results AMB INR Fingerstick AMB INR Fingerstick 2.1 Last Edit by Bernadette Barreto RN on 03/22/24 11:32 interface delay Assessment & Plan Assessment & Plan (1) Current use of anticoagulant therapy: Code(s): Z79.01 - buttermaker continuous churn (current) use of anticoagulants Category: Medical
[2024-03-22 11:34] LABS: Prothrombin Time Whole Bld POC 24.8 sec (11.1-13.5); ~PT, ~INR - Anti Coag Clinic 2.1 (0.9-1.1)
== END 2024-03-22 11:30 | disposition home or self-care (01) ==
LOC: HO.ACS 11:16
PROVIDERS: PCP Internal Medicine; Visit Provider Internal Medicine
DX: Z79.01 Long term (current) use of anticoagulants (principal)

== ENCOUNTER 2024-03-25 06:41 | Outpatient (REF) | payer MEDICARE, SELFPAY ==
[2024-03-25 07:54] LABS: Anion Gap 12 (12-20); Blood Urea Nitrogen 23 mg/dL (9-16); Carbon Dioxide 26 mmol/L (22-29); Chloride 105 mmol/L (96-108); Estimated Glomerular Filt Rate 54; Glucose Random 181 mg/dL (60-115); Sodium 139 mmol/L (135-145)
[2024-03-25 08:05] LABS: Creatinine Urine 96.65 mg/dL
[2024-03-25 08:06] LABS: Total Protein Urine Random 38 mg/dL (<12)
== END 2024-03-25 06:42 | disposition home or self-care (01) ==
LOC: HO.LAB 06:41
PROVIDERS: PCP Internal Medicine; Visit Provider Internal Medicine Hypertension Specialist
DX: I10 Essential (primary) hypertension (principal)
CPT/HCPCS: 36415; 80048; 82570; 84156

== ENCOUNTER 2024-03-28 09:26 | Outpatient (AMB) | payer MEDICARE, SELFPAY ==
[2024-03-28 09:27] VITALS: BP 116/60; PULSE 73; O2SAT 94; BMI 44.0
--- NOTE | 2024-03-28 09:27 | A.OFFPC_ITS ---
Vital Signs 03/28/24 09:27 Height 5 ft 7 in Weight 281 lb BMI 44.0 BP 116/60 Blood Pressure Location Rt brachial Position Sitting Pulse 73 Pulse Source Pulse Oximeter Pulse Oximetry (%) 94 Oxygen Delivery Method Room Air Intake Visit Reasons: DM Follow Up Allergies medroxyprogesterone [Provera] Allergy (Intermediate, Verified 03/28/24 09:27) SKIN PEELING niacin [From NIASPAN EXTENDED-RELEASE] Allergy (Intermediate, Verified 03/28/24 09:27) facial flushing atorvastatin [From Lipitor] Allergy (Mild, Verified 03/28/24 09:27) MUSCLE ACHES, myalgia gemfibrozil [From Lopid] Allergy (Mild, Verified 03/28/24 09:27) MUSCLE ACHES fluconazole [From DIFLUCAN] Allergy (Unknown, Verified 03/28/24 09:27) PER H&P nitroglycerin [From Nitro-Dur] Adverse Reaction (Mild, Verified 03/28/24 09:27) LOW BLOOD PRESSURE Medication List - Last Reconciled 03/28/24 by Ayla Pretty PA-C albuterol sulfate 90 mcg/actuation 2 puffs PO Q6H PRN 30 days bisacodyl (Dulcolax (bisacodyl)) 10 mg (2 x 5 mg) PO BEDTIME 2 days blood-glucose meter,continuous (FreeStyle Ara 3 [place]) As directed blood-glucose sensor (FreeStyle Ara 3 Sensor device) Apply every 14 days As directed calcium carbonate-vitamin D3 (Calcium 600 + D(3)) PO DAILY citalopram 20 mg PO DAILY 90 days hydrochlorothiazide 12.5 mg PO DAILY insulin glargine (Lantus Solostar U-100 Insulin) 60 units (0.6 mL) subcut BID 90 days lisinopril 20 mg PO DAILY 90 days metformin 500 mg PO DAILY 90 days omeprazole 20 mg PO DAILY pen needle, 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) BID PRN polyethylene glycol 3350 (Miralax) 238 grams PO ONCE 1 day vitamin B complex 1 tab PO DAILY warfarin 10 mg See Protocol PO DAILY Tobacco use date assessed: 09/26/23 Fall risk assessment: No Falls in past year Last assessed Fall Risk: 03/28/24 Dental Screening Dental Screen Date: 09/26/23 HPI DM Follow Up HPI Details 68-year-old female with past medical his tory diabetes mellitus on insulin, diabetic nephropathy, GERD, chronic kidney disease, hypertension, generalized anxiety disorder, fatty liver disease, and recurrent DVT last seen March 2024 coming in for follow up. Patient states she is feeling generally well. She saw gynecology and was recommended to have pelvic and transvaginal US for post-meopausal bleeding and pelvic floor exercises for urinary incontinence. She has been working on lifestyle changes and has been more active lately. [facility] Medical History (Updated 03/22/24 @ 11:09 by Elizabeth Shearer CNM) Urgency incontinence Fatty liver Anxiety and depression Shoulder pain, bilateral Environmental allergies LLL pneumonia Encounter for annual routine gynecological examination Contusion of foot Long-term insulin use Diabetes 1.5, managed as type 1 Surgical History History of revision of total replacement of right knee joint History of colonoscopy History of total left knee replacement (TKR) History of total right knee replacement (TKR) History of breast biopsy History of tonsillectomy Family History Father Type 2 diabetes mellitus Polymyalgia Mother Cancer of thyroid Sister Breast cancer Sister Leukemia Brother Diabetes mellitus HTN (hypertension) High cholesterol Social History Housing: House Alcohol intake: former Patient Tobacco Use Status: Former Tobacco user Tobacco use type: Cigarette Years Smoked: stopped 1984 e-Cigarette/Vaping Use: Never Used Advance Directives Date on File: 03/05/20 Current occupational status: unemployed Cognitive needs: No Hearing needs: No Vision needs: Yes Female Reproductive History Menstrual Age of Menarche: 12 Questionnaire Thrive Questionnaire Date Thrive assessed: 09/12/23 AUDIT C Alcohol Use Questionnaire (AUDIT-C) 1. How often do you have a drink containing alcohol?: Never 3. How often do you have six or more drinks on one occasion?: Never Total Score: 0 Score Reviewed/Action Taken: Yes LEX-7 AMB Questionnaire LEX-7 Date LEX - 7 assessed: 09/12/23 Source: Developed by Drs. Roney Mitchell, Molly Duran, Earl Muhammad and colleagues, with an educational willem from [employer]. Review of Systems Const Denies body aches, Denies chills, Denies fever(s), Denies headache(s) and Denies poor appetite Eyes Reports no additional complaints ENT Denies dizziness and Denies headache(s) Card Denies chest pain, Denies syncope, Denies edema, Denies irregular heart rhythm, Denies lightheadedness and Denies dyspnea Resp Denies cough and Denies dyspnea GI Denies abdominal pain, Denies nausea and Denies vomiting Details: Stress incontinence Musc Reports no additional complaints and Denies abnormal gait Skin/Breast Reports system reviewed and no additional complaints, except as documented Neuro Denies abnormal gait, Denies dizziness, Denies syncope and Denies headache(s) Psych Reports no additional complaints Physical exam (Primary Care) Vital Signs: Last Vital Signs Pulse 73 03/28/24 09:27 BP 116/60 03/28/24 09:27 Pulse Ox 94 03/28/24 09:27 Oxygen Delivery Method Room Air 03/28/24 09:27 BMI result Body Mass Index 44.0 Tobacco/Smoking Status: Tobacco use Status Tobacco use date assessed 09/26/23 03/28/24 09:27 Patient Tobacco Use Status Former Tobacco user 03/28/24 09:27 Tobacco use type Cigarette 03/28/24 09:27 e-Cigarette/Vaping Use Never Used 03/28/24 09:27 Thrive Assessment: Date of Thrive Assessment Date Thrive assessed 09/12/23 03/28/24 09:27 Const General: cooperative, healthy appearing, comfortable and no acute distress Orientation/consciousness: patient oriented x3 HENMT Head: Yes normocephalic Ears: hearing grossly normal bilaterally General nose exam: Normal external nose present Eyes General: appearance normal, both eyes and all related structures Conjunctivae: conjunctivae normal Neck Neck: Yes full ROM and Yes no lymphadenopathy Resp Effort & Inspection: normal respiratory effort Auscultation: clear to auscultation bilaterally, no crackles, no rales, no rhonchi and no wheezes Cardio Rate: regular rate Rhythm: regular rhythm Skin General skin exam: no rashes or lesions noted Neuro General: patient oriented x3 Gait exam (Neuro): Normal gait present Extrem General: Yes normal to inspection, Yes full ROM and No edema Psych Affect: normal affect Attitude: cooperative Insight: Good insight present (Psych) Judgement: Good judgement present (Psych) Results AMB Hemoglobin A1c AMB Hemoglobin A1c 7.2 % Last Edit by MELISSA Peterson on 03/28/24 09:44 Results Reviewed Results Reviewed: Laboratory Last Values Hgb A1c (Clinic) 7.2 % (4.0-6.0) H 03/28/24 09:28 Coding Level of Care Code Est Pt Level 3 (46613) Diagnoses Urgency incontinence N39.41 Asthma J45.909 Left leg DVT I82.402 Hypertension, essential I10 Diabetic nephropathy associated with diabetes mellitus due to underlying condition E08.21 Diabetes mellitus type: due to underlying condition Chronic GERD K21.9 Diabetes 1.5, managed as type 1 E13.9 Assessment & Plan Assessment & Plan (1) Urgency incontinence: Code(s): N39.41 - Urge incontinence Category: Medical Plan: Referral placed to pelvic carpet floor layer apprentice by fisheries officer. (2) Asthma: Code(s): J45.909 - Unspecified asthma, uncomplicated Category: Medical Plan: Asthma currently controlled on present medications. Continue on albuterol as needed. Avoid triggers such as allergies. (3) Left leg DVT: Comment: 3 x Code(s): I82.402 - Acute embolism and thrombosis of unspecified deep veins of left lower extremity Category: Medical Plan: Patient previously followed with cable installer repairer for recurrent DVT was placed on warfarin. She has been on warfarin for several years and is interested in either switching to apixaban or taking the therapy off altogether. Referral placed to cable installer repairer. (4) Hypertension, essential: Code(s): I10 - Essential (primary) hypertension Category: Medical Plan: Continue on current blood pressure medication. Avoid salt intake and encourage healthy diet and regular exercise. Blood pressure at goal today. (5) Diabetic nephropathy: Code(s): E11.21 - Type 2 diabetes mellitus with diabetic nephropathy Category: Medical Qualifiers: Diabetes mellitus type: due to underlying condition Qualified Code(s): E08.21 - Diabetes mellitus due to underlying condition with diabetic nephropathy Plan: Decrease the amount of carbohydrates such as pasta, bread, rice, and potatoes and limit the amount of sweets. Although fruits are generally healthy they should be eaten in moderation as they are still high in sugar. Hemoglobin A1c goal of less than 7% (6) Chronic GERD: Code(s): K21.9 - Gastro-esophageal reflux disease without esophagitis Category: Medical Plan: Avoid trigger foods such as citrus, tomato products, soda, caffeine, spicy foods and other foods that may be irritating to your stomach. Avoid laying flat 3-4 hours after eating and elevate the head of the bed 30 degrees to prevent acid from moving into the esophagus. Continue on omeprazole (7) Diabetes 1.5, managed as type 1: Code(s): E13.9 - Other specified diabetes mellitus without complications Category: Medical Plan: Decrease the amount of carbohydrates such as pasta, bread, rice, and potatoes and limit the amount of sweets. Although fruits are generally healthy they should be eaten in moderation as they are still high in sugar. Hemoglobin A1c goal of less than 7%. Patient is seeing endocrinology next week and A1c in clinic today was 7.2%. Discussed with patient to continue with lifestyle modification. She is no longer taking the Jardiance and advised to discuss with endocrinology. Plan This note was constructed using voice recognition software. While every effort has been made to ensure accuracy and drainage design coordinator, still areas may have been included sometimes these areas may affect the content or meeting of the given symptoms. Total time spent caring for the patient today was 20 minutes. This includes time spent before the visit reviewing the chart, time spent during the visit, and time spent after the visit and documentation. Orders: Orders AMB Hemoglobin A1c Today E13.9 - Other specified diabetes mellitus without complications Lipid Panel 3 Months Z00.00 - Encounter for general adult medical examination without abnormal findings Referrals Hematology & Oncology Referral I82.409 - Acute embolism and thrombosis of unspecified deep veins of unspecified lower extremity, Z79.01 - terminal carman (current) use of anticoagulants
== END 2024-03-28 10:18 | disposition home or self-care (01) ==
PROVIDERS: PCP Internal Medicine
DX: I10 Essential (primary) hypertension (principal); I82.402 Acute embolism and thrombosis of unspecified deep veins of left lower extremity; E08.21 Diabetes mellitus due to underlying condition with diabetic nephropathy; N39.41 Urge incontinence; J45.909 Unspecified asthma, uncomplicated; K21.9 Gastro-esophageal reflux disease without esophagitis

== ENCOUNTER → 2024-03-28 09:26 | Outpatient (BNVA) | payer MEDICARE, SELFPAY | PROVIDERS: PCP Internal Medicine | DX: N39.41 Urge incontinence (principal); J45.909 Unspecified asthma, uncomplicated; I82.402 Acute embolism and thrombosis of unspecified deep veins of left lower extremity; I10 Essential (primary) hypertension; K21.9 Gastro-esophageal reflux disease without esophagitis; E13.9 Other specified diabetes mellitus without complications | CPT/HCPCS: 83036; 99212 ==

== ENCOUNTER 2024-04-09 07:32 | Outpatient (AMB) | payer MEDICARE, SELFPAY ==
--- NOTE | 2024-04-09 07:35 | A.OFFVIS_ITS ---
Vital Signs 04/09/24 07:36 Height 5 ft 7 in Weight 282 lb 6.594 oz BMI 44.2 BP 124/72 Blood Pressure Location Lt brachial Position Sitting Pulse 73 Pulse Source Pulse Oximeter Intake Visit Reasons: DM/CONF Intake Note: Patient presents today for D2MO follow up visit. 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 Accompanied by: Self / Same As Patient Allergies medroxyprogesterone [Provera] Allergy (Intermediate, Verified 04/09/24 07:42) SKIN PEELING niacin [From NIASPAN EXTENDED-RELEASE] Allergy (Intermediate, Verified 04/09/24 07:42) facial flushing atorvastatin [From Lipitor] Allergy (Mild, Verified 04/09/24 07:42) MUSCLE ACHES, myalgia gemfibrozil [From Lopid] Allergy (Mild, Verified 04/09/24 07:42) MUSCLE ACHES fluconazole [From DIFLUCAN] Allergy (Unknown, Verified 04/09/24 07:42) PER H&P empagliflozin [From Jardiance] Adverse Reaction (Mild, Verified 04/09/24 11:35) urinary incontinence nitroglycerin [From Nitro-Dur] Adverse Reaction (Mild, Verified 04/09/24 07:42) LOW BLOOD PRESSURE HPI Comments Details: Patient is a 68-year-old female with a significant past medical history of prior DVT, on chronic anticoagulation, CKD, diabetic nephropathy, long-term insulin use and hypertension presenting today for a follow-up regarding her diabetes after recently being started on jardiance. No change in renal function after starting jardiance. She was dx with dm 30 years ago. A1C 7.2% 03/28/24 down from previous 7.6% and 8%.She is currently on 60 units of Lantus twice a day, metformin 500 once a day. She had not seen an Endo prior to starting in Endo clinic at [facility].managed by her PCP. She did go to diabetic Education years ago. She thinks she when she was 1st diagnosed. She took Jardiance for 2 weeks in November and developed an increase in urinary incontinence and has had some slight vaginal spotting of blood. 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 She has no symptoms of urgency frequency or burning Freestyle raoul sensor 3 average glucose: 223 14 day continuous glucose sensor report reviewed Glucose Management indicator 8.6 % Time CGM active 51 % TIme in ranges: 34 % very high (above 250) 33 % high (181-250) 33 % in range (70-180] 0 % low (69-55) 0 % very low (below 54) 32.2 Glucose variability (target <36%) Interpretation of CGMS [glucose readings persistently above target with high numbers overnight dropping down to 160 by morning and staying with an average of about 180 throughout the day ] She reports she has been eating alot of sweets -Mother had thyroid cancer and metastatic abdominal cancer (not sure if involving pancreas). She was able to discuss her mother's history with her sister in the thyroid cancer she had was papillary thyroid cancer -in the past treated with glyburide but did not tolerate it. Last eye exam over due is scheduled with Dr. Martin at [facility] for the spring. NO prior h/o retinopathy. complications include nephropathy and neuropathy Recent dexa: normal bone density She states that in the past she has had 2 hypoglycemic events this year. She treats it with juice. Does not have any glucose tabs at home. She follows with nephrology and is due for f/u. She is on lisinopril 20 mg and hydrochlorothiazide 12.5. Did not tolerate statins or gemfibrozil or niacin. Recent liver elastography: enlarged liver, fatty, no advanced disease [facility] Medical History (Updated 04/09/24 @ 11:46 by Noemy Fair NP) Fatty liver determined by biopsy Urgency incontinence Fatty liver Anxiety and depression Shoulder pain, bilateral Environmental allergies LLL pneumonia Encounter for annual routine gynecological examination Contusion of foot Long-term insulin use Diabetes 1.5, managed as type 1 Surgical History History of revision of total replacement of right knee joint History of colonoscopy History of total left knee replacement (TKR) History of total right knee replacement (TKR) History of breast biopsy History of tonsillectomy Family History Father Type 2 diabetes mellitus Polymyalgia Mother Cancer of thyroid Sister Breast cancer Sister Leukemia Brother Diabetes mellitus HTN (hypertension) High cholesterol Social History Housing: House Alcohol intake: former Patient Tobacco Use Status: Former Tobacco user Tobacco use type: Cigarette Years Smoked: stopped 1984 e-Cigarette/Vaping Use: Never Used Advance Directives Date on File: 03/05/20 Current occupational status: unemployed Cognitive needs: No Hearing needs: No Vision needs: Yes Female Reproductive History Menstrual Age of Menarche: 12 Physical Exam Vital Signs: Last Vital Signs Pulse 73 04/09/24 07:36 BP 124/72 04/09/24 07:36 BMI result Body Mass Index 44.2 Const Other: Absence of Cushingoid features. Absence of acromegalic features. Neck exam reveals nl size thyroid about 15 gms. No thyroid nodules palpable. Heart S1 S2, Reg R/R. No M/R G. Skin exam reveals absence of vitiligo or acanthosis nigricans. Visual exam of foot performed. No ulcerations or open lesions. No inter digit maceration or fissuring. No onychomycosis, no callouses. Sensation intact to monofilament exam. Vibratory sensation is normal with 128 Hz tuning fork. Office Procedures Glucose Monitoring Details Details: see [facility] [id number] - Glucose monitoring, continuous-physician I&R Procedure code (CPT) selection complete Results Reviewed Results Reviewed: Laboratory Last Values Glucose (Clinic) 241 mg/dL (60-115) H 04/09/24 07:44 Assessment & Plan Assessment & Plan (1) Urinary urgency: Code(s): R39.15 - Urgency of urination Plan: She has f/u with pcp/bonsai culturist also has vag spotting. will check urine c and s (2) Long-term insulin use: Code(s): Z79.4 - halfway (current) use of insulin Category: Medical Plan: 68-year-old with improving A1c but recent Dexcom showing elevated readings. Continue insulin b.i.d. along with metformin and add Ozempic. She has a family history of thyroid cancer but this is papillary not medullary in her mother. All side effects of GLP 1 discussed with patient. If she tolerates ozempic at lowest dose can phone titrate monthly and have patient f/u 3 months (3) Fatty liver determined by biopsy: Code(s): K76.0 - Fatty (change of) liver, not elsewhere classified Category: Medical Plan: REFER to GI weight loss encouraged. 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
[2024-04-09 07:36] VITALS: BP 124/72; PULSE 73; BMI 44.2
[2024-04-09 07:48] LABS: Glucose, Whole Blood 241 mg/dL (60-115)
== END 2024-04-09 08:20 | disposition home or self-care (01) ==
PROVIDERS: PCP Internal Medicine; Visit Provider Nurse Practitioner Adult Health
DX: E11.9 Type 2 diabetes mellitus without complications (principal); Z79.4 Long term (current) use of insulin; R39.15 Urgency of urination; K76.0 Fatty (change of) liver, not elsewhere classified
CPT/HCPCS: 95251; 99215

== ENCOUNTER → 2024-04-09 07:32 | Outpatient (BNVA) | payer MEDICARE, SELFPAY | PROVIDERS: PCP Internal Medicine; Visit Provider Nurse Practitioner Adult Health | DX: E11.21 Type 2 diabetes mellitus with diabetic nephropathy (principal); E11.22 Type 2 diabetes mellitus with diabetic chronic kidney disease; N18.9 Chronic kidney disease, unspecified; R39.15 Urgency of urination; K76.0 Fatty (change of) liver, not elsewhere classified; Z79.01 Long term (current) use of anticoagulants; Z86.718 Personal history of other venous thrombosis and embolism; Z79.4 Long term (current) use of insulin | CPT/HCPCS: 82947; 99212 ==

== ENCOUNTER 2024-04-09 08:25 | Outpatient (REF) | payer MEDICARE, SELFPAY | END 2024-04-09 08:26 | disposition home or self-care (01) | LOC: HO.10HDLNP 08:25 | PROVIDERS: Visit Provider Nurse Practitioner Adult Health | DX: R39.15 Urgency of urination (principal) | CPT/HCPCS: 87086 ==

== ENCOUNTER 2024-04-18 11:21 | Outpatient (AMB) | payer MEDICARE, SELFPAY ==
[2024-04-18 11:28] LABS: Prothrombin Time Whole Bld POC 21.7 sec (11.1-13.5); ~PT, ~INR - Anti Coag Clinic 1.8 (0.9-1.1)
--- NOTE | 2024-04-18 11:36 | MHC.OFFVISCO ---
Intake Intake Visit Reasons: Anticoagulation Allergies medroxyprogesterone [Provera] Allergy (Intermediate, Verified 04/18/24 11:22) SKIN PEELING niacin [From NIASPAN EXTENDED-RELEASE] Allergy (Intermediate, Verified 04/18/24 11:22) facial flushing atorvastatin [From Lipitor] Allergy (Mild, Verified 04/18/24 11:22) MUSCLE ACHES, myalgia gemfibrozil [From Lopid] Allergy (Mild, Verified 04/18/24 11:22) MUSCLE ACHES fluconazole [From DIFLUCAN] Allergy (Unknown, Verified 04/18/24 11:22) PER H&P empagliflozin [From Jardiance] Adverse Reaction (Mild, Verified 04/18/24 11:22) urinary incontinence nitroglycerin [From Nitro-Dur] Adverse Reaction (Mild, Verified 04/18/24 11:22) LOW BLOOD PRESSURE Medication List - Last Reconciled 04/18/24 by Bernadette Barreto, NEIL albuterol sulfate 90 mcg/actuation 2 puffs PO Q6H PRN 30 days bisacodyl (Dulcolax (bisacodyl)) 10 mg (2 x 5 mg) PO BEDTIME 2 days blood-glucose meter,continuous (FreeStyle Ara 3 [place]) As directed blood-glucose sensor (FreeStyle Ara 3 Plus Sensor device) As directed change every 14 days calcium carbonate-vitamin D3 (Calcium 600 + D(3)) PO DAILY citalopram 20 mg PO DAILY 90 days hydrochlorothiazide 12.5 mg PO DAILY insulin degludec (Tresiba FlexTouch U-200 insulin) 120 units subcutaneously daily; 90 days lisinopril 20 mg PO DAILY 90 days metformin 500 mg PO DAILY 90 days omeprazole 20 mg PO DAILY pen needle, 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) BID PRN polyethylene glycol 3350 (Miralax) 238 grams PO ONCE 1 day semaglutide (Ozempic) 0.25 mg (0.368 mL) subcut QWEEK 28 days vitamin B complex 1 tab PO DAILY warfarin 10 mg See Protocol PO DAILY Nursing Note INR 1.8?out of therapeutic range of 2-2 Medications and supplements reviewed Patient status: well Medications or supplements: no changes Diet: usual diet for pt Denies any signs and symptoms of bleeding or clotting or unusual bruising Bleeding, bruising, clotting discussed Nutritional guidance given: to avoid greens for 2 days and to have a one serving of reds for the next 2 days. Pt states she will have sweet potato and carrots Dose: 10mg daily F/U INR Date : 1 week?? Patient verbalizing understanding of instructions given. 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
--- OUTSIDE RECORDS SUMMARY | 2024-04-24 01:55 | XMS_ITS ---
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 Role Phone Jabier Russell Primary Care Provider UnavailNeha Tidwell Unavailable [phone] Yrn Bill Unavailable [phone] Encounters Encounter Location Date Provider Diagnosis [address] [phone] 01/09/2024 Yrn Bill Plan Of Treatment Next Appt Details Provider Name:Yrn Bill , 06/07/2024 12:45:00 PM, [address] [place] [address], [phone], Progress Notes * SHIREENCheryl GOMEZcori MoniqueDOB:[birth year] (68 yo F)Acc No.[id number]:01/09/2024 Progress Note Patient:?Janna IYER Provider:?Yrn Bill DPM :1955???Age:68 Y???Sex:Female D ate:01/09/2024 Address:[address] [place], [place] [address] [id number] Pcp:Jabier Russell Subjective: * Chief Complaints: * ??? * Medical History:? Objective: * Vitals:? Assessment: Plan: * Treatment: * Images: * The named appointment provid er may or may not be the originator of this progress note, and it is not deemed complete until electronically signed by the appointment provider. Sign off status: Pending * Provider:Sandy Bill DPM Date:?2023 Generated for Isamar brand/Benjamin/Zofia on:?04/24/2024 01:55 AM EST
--- OUTSIDE RECORDS SUMMARY | 2024-04-24 01:55 | XMS_ITS ---
Author Organization [facility] Address [address] [place] [address] Care Team Providers Care Claim Agent Name Role Phone Jabier Russell Primary Care Provider Neha Roach [phone] REASON FOR VISIT rs appt 01/09/24 Encounters Encounter Location Date Provider Diagnosis [address] [address] 01/08/2024 Neha Horne Plan Of Treatment Next Appt Details Provider Name:Yrn Bill , 06/07/2024 12:45:00 PM, [address] [place], [phone], Progress Notes * Janna IYERDOB:[birth year] (68 yo F)Acc No.[id number]:01/08/2024 Patient:?Shireen, Janna Monique :1955???Age:68 Y???Sex:Female Address:[address] [place] [id number] * true * Date:? Generated for Printi ng/Famosheg/eTransmitting on:?04/24/2024 01:55 AM EST
--- OUTSIDE RECORDS SUMMARY | 2024-04-24 01:55 | XMS_ITS ---
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 Role Phone Jabier Russell Primary Care Provider Neha Roach Unavailable [phone] Yrn Bill Unavailable [phone] Allergies Allergen (clinical drug ingredient) Drug/Non Drug Allergy documented on EMR Reaction Allergy Type Onset Date Status medroxyprogesterone Provera Unknown Drug Allergy Active Latex Latex Unknown Allergy Active REASON FOR VISIT At Risk Footcare, Toe Irritation Medications Medication SIG (Take, Route, Frequency, Duration) Notes Start Date End Date Status Lisinopril 20 MG Orally Act danielle hydroCHLOROthiazide 12.5 MG Orally Active Calcium + D3 Active Vitamin C Active Cetirizine HCl Activ e Vitamin D 1000 UNIT Orally Active metFORMIN HCl 1000 MG Orally Active Citalopram Hydrobromide 20 MG Orally Active Omeprazole 20 MG Orally Act danielle Lantus 60Unit Active ASA 81 mg Not-Taking Extra Depth Orthopedic Shoes (1 Pair) with Customized Heat Molded Multidensity Innersoles (3 Pair) as directed Dx: NIDDM/Polyneuropathy (E11.42), Hammertoe Foot Deformity (M20.41,M20.42), Preulcerative Skin Lesion(s) (L85.1 03/08/2024 Active Social History Tobacco Use: Social History Observation Description Date Details (start date - stop date) Former Smoker NA - NA Tobacco Use/Smoking Question Answer Notes Are you a: former smoker When did you start smoking? 17yr old started When did you stop smoking? 32 yrs ago Additional Findings: Tobacco User Light cigarett e smoker ((1-9 cigs/day) Additional Findings: Tobacco Non-User Current no n-smoker Alcohol Screen Question Answer Notes Did you have a drink contain ing alcohol in the past year? Yes How often did you have a dri nk containing alcohol in the past year? Monthly or less (1 point) Points 1 Interpretation Negative Tobacco use other than smoking: Question Answer Notes Are you an other tobacco user? No Problems Problem Type SNOMED Code ICD Code Onset Dates Problem Status W/U Status Risk Notes Problem Polyneuropathy due to type 2 diabetes mellitus (105454890) Type 2 diabetes mellitus 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) Active confirmed Problem Acquired hammer toe of right foot (4883636085602527 ) Other hammer toe(s) (acquired), right foot (M20.41) Active confirmed Problem Acquired hammer toe of left foot (6018592453252475 ) Other hammer toe(s) (acquired), left foot (M20.42) Active confirmed Vital Signs Blood pressure systolic 123 mm Hg 03/08/20 24 Blood pressure diastolic 70 mm Hg 024 Height 5ft 7in in 03/08/2024 Weight 250 lbs 03/08/2024 BMI 39.15 kg/m2 03/08/2024 Procedures Procedure Date Ordered Date Performed Result Body Sit e 03021-JGYPWND NAIL, 1-5 03/08/2024 N/A 07280-OBCO SKIN LESIONS, OVER 4 03/08/2024 N/A O6927-SAIXDHID DYSTROPHIC NAILS ANY # 03/08/2024 N/A Encounters Encounter Location Date Provider Diagnosis [facility] [address] [address] 03/08/2024 Yrn Bill Type 2 diabetes mellitus with diabetic polyneuropathy E11.42 ; Tinea unguium B35.1 ; Other hammer toe(s) (acquired), right foot M20.41 and Other hammer toe(s) (acquired), left foot M20.42 Assessments Encounter Date Diagnosis (ICD Code) Assessment Notes Treatment Notes Treatment Clinical Notes Section Notes 03/08/2024 Type 2 diabetes mellitus with diabetic polyneuropathy (ICD-10 - E11.42) 03/08/2024 Tinea unguium (ICD-10 - B35.1) 03/08/2024 Other hammer toe(s) (acquired), right foot (ICD-10 - M20.41) Patient Educated with: DIABETIC FOOT CARE INSTRUCTIONS. pdf (DIABETIC FOOT CARE INSTRUCTIONS. pdf) 03/08/2024 Other hammer toe(s) (acquired), left foot (ICD-10 - M20.42) Plan Of Treatment Medication Medication Name Sig Start Date Stop Date Notes Extra Depth Orthopedic Shoes (1 Pair) with Customized Heat Molded Multidensity Innersoles (3 Pair) as directed Dx: NIDDM/Polyneuropathy (E11.42), Hammertoe Foot Deformity (M20.41,M20.42), Preulcerative Skin Lesion(s) (L85.1 03/08/2024 Treatment Notes Assessment Notes Other hammer toe(s) (acquired), right fo ot Patient Educated with: DIABETIC FOOT CARE INSTRUCTIONS.pdf (DIABETIC FOOT CARE INSTRUCTIONS.pdf) Pending Test Test Name Order Date 59066-DULPWSO NAIL, 1-5 03/08/2024 93127-SDOD SKIN LESIONS, OVER 4 03/08/20 Z4036-XJBFPRKC DYSTROPHIC NAILS ANY # Next Appt Details Follow Up: prn, Reason: Provider Name:Yrn Bill , 06/07/2024 12:45:00 PM, [address] [place] [address], [id number], Procedure Notes * Category Sub-Category Detail Notes Keratoma Treatment Parring or Cutting o f Benign Hyperkeratotic Lesion(s) (-57) More than 4 Lesions - The Benign hyperkeratotic lesions, as described above were pared, and/or cut utilizing a sterile 15 blade, tissue nippers, and/or dremel - 58970 Debride Nails 1-5 Procedure: Performance of this nail treatment by a nonprofessional would put this patients foot and overall health at risk. Therefore, nail debridement was performed extensively to reduce/remove overall nail length, girth, thickness, subungual debris, and necrotic tissue, by manual and/or electrical means through the use of a nail nipper and/or dremel-type disk grinder, to a more viable healthy nail plate or bed tissue 1-5. Silver nitrate used for any petechial bleeding as necessary. Definitive antifungal treatment options have been reviewed and discussed with the patient. The patient chooses, no pharmaceutical tx - 48967 Nail Reduction Nail Reduction (-27) Trimming o f dystrophic nails performed to reduce/remove overall nail length and girth, by manual and electrical means with use of a nail nipper and/or dremel, to more viable healthy nail plate or bed tissue, any number - G0127 Progress Notes * Janna IYERDOB:[birth year] (68 yo F)Acc No.[id number]:03/08/2024 Progress Note Patient:?Janna Iyer Provider:?Yrn Bill DPM :1955???Age:68 Y???Sex:Female D ate:03/08/2024 Address:[address] [place], [place] [id number] Pcp:Jabier Russell Subjective: * Chief Complaints: * ???At Risk FootcareToe Irrit ation * HPI: ???At Risk footcare:?Pt States Last PCP Visit:?Date?01/26/2024 ???Toe pain:?Location:?B/L feet.?Duration:?several years.?Course:?worse.?Aggravated by:?shoes, any pressure.?Treatments:?change in shoes.? * ROS:?General/Constitutional:?Nausea?denies.?Vomiting?denies.?Hunger Thirst?denies.?Loss appetite?denies.?Chills?denies.?Fatigue?denies.?Fever?denies.?Night Sweats?denies.?Unexplained weight loss?denies.?Unexplained weight gain?denies.?HEENTM:?Dentures?denies.?Dizziness?denies.?Glasses/contacts?denies.?Retinopathy?de nies.?Blurred/double vision?denies.?TMJ?denies.?Discharge/drainage?denies.?Implants?denies.?Sore throat?denies.?Dental implants?denies.?Hard of hearing ?denies.?Difficulty chewing/swallowing/speaking?denies.?Nose bleeds?denies.?Sore mouth?denies.?Respiratory:?On Oxygen?denies.?Pneumonia/pleurisy?denies.?Bronchitis?denies.?Emphysema?denies.?C oughing?denies.?Cough blood?denies.?Shortness of breath?denies.?Wheezing?denies.?Cardiovascular:?Pacemaker?denies.?MVP?denies.?WPW?denies.?CHF?denies.?Heart attack?denies.?Septal defect?denies.?Rapid beat?denies.?Chest pain ?denies.?Atrial Fib.?denies.?Murmur/Palpitations?denies.?Gastrointestinal:?Hemorrhoids?denies.?Stomach/Abdominal pain?denies.?Dark blood stool?denies.?Irritable bowel ?denies.?Constipation?denies.?Diarrhea?denies.?Hematology:?Swelling?admits.?Clots?denies.?Varicose Veins?denies.?Bruising?denies.?Bleeding problem?denies.?Genitourinary:?Blood urine?denies.?Frequent/Painfu/urination/bladder control?denies.?Kidney stones?denies.?Infection (UTI)?denies.?Nephropathy?denies.?sex trans dis (STD)?denies.?Prostate?denies.?Musculoskeletal:?Hammertoes?admits.?Bunions?denies.?Back Pain?denies.?Muscle Cramps/ Resting?denies.?Muscle cramps / walking?denies.?Generalized aches and pains?denies.?Weakness?denies.?Integ.:?Snyder?denies.?Scars?denies.?Corns/calluses?admits.?Ingrown nails?admits.?Painful nails?denies.?Open Sores?denies.?Rashes?denies.?Neurologic:?Difficulty sleeping?denies.?Brain disorder?denies.?Numbness?denies.?Balance trouble?denies.?Confusion?denies.?Fainting/blackouts?denies.?Tingling?denies.?Tr emors?denies.? * Medical History:? * Surgical History:?TK R+ R 10 .4 02/09/16TK R+ R 9. 03 06/02/2016 * Hospitalization/Major Diagno stic Procedure:?Denies Past Hospitalization * Family History:?Mother: dece ased, diagnosed with Family history of arthritis, Unspecified essential hypertension, Unspecified heart disease, Other malignant neoplasm of unspecified site.?Father: alive, diagnosed with Unspecified heart disease.?Siblings: unknown, depression, diagnosed with Family history of arthritis, Unspecified essential hypertension, Other malignant neoplasm of unspecified site.? * Social History:?Tobacco Use:?Tobacco Use/Smoking?Are you a:?former smoker ?When did you start smoking??17yr old started ?When did you stop smoking??32 yrs ago ?Additional Findings: Tobacco User?Light cigarette smoker ((1-9 cigs/day) ?Additional Findings: Tobacco Non-User?Current non-smoker ?Tobacco use other than smoking?Are you an other tobacco user??No ???Drugs/Alcohol:?Drugs?Have you used drugs other than those for medical reasons in the past 12 months??No ?Alcohol Screen?Did you have a drink containing alcohol in the past year??Yes ?How often did you have a drink containing alcohol in the past year??Monthly or less (1 point) ?Points?1 ?Interpretation?Negative ???Miscellaneous:?Caffeine: yes, frequency:, 1-2 cups of tea occassionally. ?Children: yes, 2. ?Exercise: yes, Daily. ?Marital status: single. ?Occupation: [employer], [employer]. * Medications:?TakingOmeprazol e 20 MG Capsule Delayed Release Orally Lantus 60Unit Vitamin D 1000 UNIT Tablet Orally metFORMIN HCl 1000 MG Tablet Orally Citalopram Hydrobromide 20 MG Tablet Orally Lisinopril 20 MG Tablet Orally hydroCHLOROthiazide 12.5 MG Tablet Orally Calcium + D3 Vitamin C Cetirizine HCl Taking Omeprazole 20 MG Capsule Delayed Release Orally Taking Lantus 60Unit Taking Vitamin D 1000 UNIT Tablet Orally Taking metFORMIN HCl 1000 MG Tablet Orally Taking Citalopram Hydrobromide 20 MG Tablet Orally Taking Lisinopril 20 MG Tablet Orally Taking hydroCHLOROthiazide 12.5 MG Tablet Orally Taking Calcium + D3 Taking Vitamin C Taking Cetirizine HCl Not-Taking/PRNASA 81 mg Medication List reviewed and reconciled with the patientNot-Taking/PRN ASA 81 mg Medication List reviewed and reconciled with the patient * Allergies:?ProveraLatex: All ergyyes[Allergies Verified] Objective: * Vitals:?Ht:5ft 7in, Wt:250, BMI:39.15, Shoe size:11W, BP:123/70 mm Hg, BS:not taken, Ht-cm: 170.18 cm, Wt-k.4 kg. * Examination: ???Neurological: ?SENSORY:?Neurological exam demonstrates, reduced light touch sensation, reduced sharp/dull discrimination , reduced vibration sensation, in a stocking fashion, B/L, 5.07 monofilament test performed at plantar aspects of 5 varied sites per foot shows sensation, reduced, B/L.?Nails: ?NAILS are:?Elongated, overgrown, dystrophic, lytic, greater than 3mm thick, discolored and friable with crumbly malodorous subungual debris , TA , T5 , remaining nails are elongated, overgrown, dystrophic.?Dermatologic: ?SKIN FINDINGS:?Skin exam reveals Keratotic lesion(s) located at , Medial , IPJ , TA , Medial , IPJ , T5 , SUB MTH (s) , 1 , B/L , Heel(s) , B/L.?Orthopedic: ?MUSCLE STRENGTH:?5/5 all groups in a symmetrical fashion, B/L.?DIGITAL DEFORMITIES:?Digital contracture, PIPJ, 2-5 B/L, incompl-reducible to push-up test, no over, nor underlapping,?there is?evidence of shoe producing skin irritation.?FOOTWEAR:?worn, non-supportive, shoe gear properties exacerbate patient's foot/toe deformity.?Vascular: ?DP PULSES(B):?3/4, B/L.?PT PULSES(B):?2/4, B/L.?CAPILLARY FILL TIME:?immediate, all digits, B/L.?TROPHIC CONDITION-TEXTURE/ELASTICITY/TURGOR/HAIR GROWTH(B):?normal, B/L.?TEMPERTURE GRADIENT(C):?normal, warm to cool, proximal to distal, B/L, B/L.?PIGMENTATION:?normal, B/L.?EDEMA(C):?2/4 , pitting , without aching pain , Leg(s) , Ankle(s) , Foot , B/L.?Ophthalmology Referral: ?DIABETES EYE EXAM?General Examination: ?GENERAL APPEARANCE:?Reveals a pleasant, alert, well nourished, well- developed, well hydrated individual, who demonstrates proper attention to hygiene/body habitus, and is in no acute distress, Pt serves as own historian for office visit today.?ORIENTED:?person, place, and time.?FOOT EXAM:?Footwear Evaluation? Assessment: * Assessment: 1.?Tinea unguium - B35.1?2.? Type 2 diabetes mellitus with diabetic polyneuropathy - E11.42 (Primary)?3.?Other hammer toe(s) (acquired), right foot - M20.41, Chronic problem, Worse (4),Rx Management (4)?4.?Other hammer toe(s) (acquired), left foot - M20.42, Chronic problem, Worse (4),Rx Management (4)? Plan: * Treatment: 2.?Other hammer toe(s) (acqu ired), right foot? Start Extra Depth Orthopedic Shoes (1 Pair) with Customized Heat Molded Multidensity Innersoles (3 Pair), as directed, Dx: NIDDM/Polyneuropathy (E11.42), Hammertoe Foot Deformity (M20.41,M20.42), Preulcerative Skin Lesion(s) (L85.1, 1, Refills 0.?? Notes: Patient Educated with: DIABETIC FOOT CARE INSTRUCTIONS.pdf (DIABETIC FOOT CARE INSTRUCTIONS.pdf)?? * Procedures:?Debride Nails 1-5:?Procedure:?Performance of this nail treatment by a nonprofessional would put this patients foot and overall health at risk. Therefore, nail debridement was performed extensively to reduce/remove overall nail length, girth, thickness, subungual debris, and necrotic tissue, by manual and/or electrical means through the use of a nail nipper and/or dremel-type disk grinder, to a more viable healthy nail plate or bed tissue 1-5. Silver nitrate used for any petechial bleeding as necessary. Definitive antifungal treatment options have been reviewed and discussed with the patient. The patient chooses, no pharmaceutical tx - 20869.?Keratoma Treatment:?Parring or Cutting of Benign Hyperkeratotic Lesion(s)?(-57) More than 4 Lesions - The Benign hyperkeratotic lesions, as described above were pared, and/or cut utilizing a sterile 15 blade, tissue nippers, and/or dremel - 32354.?Nail Reduction:?Nail Reduction?(-27) Trimming of dystrophic nails performed to reduce/remove overall nail length and girth, by manual and electrical means with use of a nail nipper and/or dremel, to more viable healthy nail plate or bed tissue, any number - G0127.? * Procedure Codes:?G0127 ESTELA ING DYSTROPHIC NAILS ANY #, Modifiers: XS 47650 DEBRIDE NAIL, 1-5, Modifiers: XS 24002 TRIM SKIN LESIONS, OVER 4, Modifiers: XS * Preventive Medicine:? ??Counseling:?BMI Care goal follow-up plan:?BMI counseling provided to patient:?Lifestyle education ?Discussion:?-14: Office or other outpatient visit for the evaluation and management of an established patient, which required a medically appropriate history and/or examination and MODERATE level of DECISION MAKING for: 1 OR MORE CHRONIC PROBLEM(S) THATS WORSENING, 2 STABLE CHRONIC PROBLEMS, A NEWLY DIAGNOSED PROBLEM WITH UNCERTAIN PROGNOSIS, AN ACUTE COMPLICATED INJURY WITH MULTIPLE TREATMENT OPTIONS, OR AN ACUTE PROBLEM WITH ACCOMPANYING SYSTEMIC SYMPTOMS, THAT POSE(S) A MODERATE RISK OF MORBIDITY. THIS CONDITION MAY ALSO INCLUDE RX DRUG MANAGEMENT, OR A DECISON FOR MINOR SURGERY. The visit on the day of the encounter encompassed interpreting the data and educating the patient as to the nature of their condition, treatment options available according to their individual PMH, meds, allergies, and overall health/living conditions, as well as any potential risks or complications that may occur from a failure to adhere to, and participate in, the recommended course of therapy. The discussion included a complete verbal, and/or written explanation of the examination results, any x-rays taken, the proposed diagnosis, and outline of the treatment plan. A schedule for future care needs was also explained. The patient verbalized an understanding of the instructions at this time and agreed to be an active participant in their treatment. If the patient should think of any questions or concerns after the visit, I have encouraged the patient to call the office.?Digital Surgery:?Digital surgery was discussed with the patient, We elected to try conservative treatment at the present time, due to the patients medical history and increased asssociated post-operative risks.?Digital Treatment:?HT- I explained to the patient the possible etiologies of Hammertoes, including genetics/foot type/shoegear/activity level/exercise routine and the risks/benefits of all the different treatment options for their pain including: No treatment at all, Rest, Ice, New/supportive/wider/deeper Shoegear, Digital Padding/Strapping/Taping/Bracing/Gel protective sleeves, Foot/Ankle AFO Bracing, Stretching exercises, Deep Tissue Massage, Arch support/shoe inserts with splay metatarsal padding, and Custom orthoses. I insisted that any digital devices be removed daily and not worn overnight for safety. The patient is to carefully examine the toes daily for any skin irritation while using any splinting or padding device. The advantages and disadvantages of each option were discussed and the patients questions re: shoegear, padding, custom vs prefabricated inserts, activity level, and consistency in home treatment regimens for optimal success were answered to their verbally confirmed satisfaction.?Shoe Gear Counseling:?SHOE Rx - The patient was counseled in great detail on their muscoloskeletal foot and toe deformities which coincided with the dermatological presentations visualized on exam. We discussed how their deformities put the integrity of their feet at risk for potential pedal complications which makes the accomidative diabetic shoes and cutomizable inserts medically necessary. We discussed the different shoe and insert treatment types and options, as well as the important advantages for adhering to regularly wearing these accomidative devices daily. The patient was made aware of the fact that a failure to abide by these recommedations may be deleterious to their foot health as they are able to prevent many pedal complications such as skin irritation, skin ulceration, infection, and even loss of toe/foot/leg/or life. Time was also spent with the patient dispensing and discussing proper diabetic footcare techniques including daily skin moisturization, daily foot inspection for any interruption in skin integrity including open lesions, or sign of infection such as redness/malodor/drainage/swelling. Also discussed and recommended were procedures regarding daily shoe inspection for the presence of internal foreign bodies as well as any visualized irregular shoe or insert wear. Patient questions re: shoes, inserts, and self foot inspections were answered to their satisfaction as the patient verbally confirmed a full understanding of the above information. A Rx for Extra Depth Orthopedic Shoes with 3 pair of custom heat-molded inserts was dispensed.? ??Screening/Special Tests:?Fall Risk?Assessment:?Performed ?Screening:?No falls in the past year ?FALLS: Screening for Future Fall Risk?Have you had any falls with injury in the past year??No * Follow Up:?prn * Images: * Sign off status: Completed true * Provider:?Yrn Bill DPM Date:?2023 Generated for Isamar brand/Benjamin/Dixonitting on:?04/24/2024 01:55 AM EST History and Physical Notes * HPI (History of Present Illness) Category Sub-Category Detail Notes Category Not es Toe pain Location: B/L feet Duration: several years Course: worse Aggravated by: shoes, any pressure Treatments: change in shoes At Risk footcare Pt States Last PCP Visit: Date: 4 Examination Category Sub-Category Detail Notes Category Not es Neurological SENSORY: Neurological exa m demonstrates, reduced light touch sensation, reduced sharp/dull discrimination , reduced vibration sensation, in a stocking fashion, B/L, 5.07 monofilament test performed at plantar aspects of 5 varied sites per foot shows sensation, reduced, B/L Dermatologic SKIN FINDINGS: Skin exam reveal s Keratotic lesion(s) located at , Medial , IPJ , TA , Medial , IPJ , T5 , SUB MTH (s) , 1 , B/L , Heel(s) , B/L Orthopedic FOOTWEAR: worn, non-suppor tive, shoe gear properties exacerbate patient's foot/toe deformity DIGITAL DEFORMITIES: Digital contracture , PIPJ, 2-5 B/L, incompl-reducible to push-up test, no over, nor underlapping, there is evidence of shoe producing skin irritation MUSCLE STRENGTH: 5/5 all groups in a symmetrical fashion, B/L General Examination GENERAL APPEARANCE: Reveals a pleasant, alert, well nourished, well-developed, well hydrated individual, who demonstrates proper attention to hygiene/body habitus, and is in no acute distress, Pt serves as own historian for office visit today FOOT EXAM: Lower Extremity Neurological Exa m performed:: Yes ORIENTED: person, place, and t adriana Footwear Evaluation Footwear Evaluation performe d:: Yes Ophthalmology Referral DIABETES EYE EXAM Diabetic Retinopa thy Screening:: Yes Findings of Diabetic Eye Exam:: no retin opathy Vascular DP PULSES(B): 3/4, B/L PT PULSES(B): 2/4, B/L CAPILLARY FILL TIME: immediate, all digi ts, B/L TEMPERTURE GRADIENT(C): normal, warm to cool, proximal to distal, B/L, B/L TROPHIC CONDITION-TEXTURE/ELASTICITY/TURGOR/HAIR GROWTH(B): normal, B/L EDEMA(C): 2/4 , pitting , with out aching pain , Leg(s) , Ankle(s) , Foot , B/L PIGMENTATION: normal, B/L Nails NAILS are: Elongated, overg rown, dystrophic, lytic, greater than 3mm thick, discolored and friable with crumbly malodorous subungual debris , TA , T5 , remaining nails are elongated, overgrown, dystrophic
--- OUTSIDE RECORDS SUMMARY | 2024-04-24 01:56 | XMS_ITS | Patient Health Record ---
Author Organization [facility] Address [address] [facility] [place] [address] Care Team Providers Care Plastic Process Technician Name Role Phone DrewSuzannecliff Primary Care Provider Neha Roach Unavailable [phone] Yrn Bill Unavailable [phone] Allergies Allergen (clinical drug ingredient) Drug/Non Drug Allergy documented on EMR Reaction Allergy Type Onset Date Status medroxyprogesterone Provera Unknown Drug Allergy Active Latex Latex Unknown Allergy Active Reason For Referral No Information Medications Medication SIG (Take, Route, Frequency, Duration) Notes Start Date End Date Status Lisinopril 20 MG Orally Act danielle hydroCHLOROthiazide 12.5 MG Orally Active Calcium + D3 Active Vitamin C Active Vitamin D 1000 UNIT Orally Active metFORMIN HCl 1000 MG Orally Active Citalopram Hydrobromide 20 MG Orally Active Cetirizine HCl Activ e ASA 81 mg Not-Taking Extra Depth Orthopedic Shoes (1 Pair) with Customized Heat Molded Multidensity Innersoles (3 Pair) as directed Dx: NIDDM/Polyneuropathy (E11.42), Hammertoe Foot Deformity (M20.41,M20.42), Preulcerative Skin Lesion(s) (L85.1 03/08/2024 Active Omeprazole 20 MG Orally Act danielle Lantus 60Unit Active Immunizations Vaccine Route Administration Date Status Comme nts Influenza Unknown 12/26/2016 Administered Influenza Unknown 06/15/2022 Administered Social History Tobacco Use: Social History Observation [...] Problem Status W/U Status Risk Notes Problem Acquired hammer toe of right foot (3652824821338385 ) Other hammer toe(s) (acquired), right foot (M20.41) Active confirmed Problem Acquired hammer toe of left foot (0748640839854830 ) Other hammer toe(s) (acquired), left foot (M20.42) Active confirmed Problem Polyneuropathy due to type 2 diabetes mellitus (080120230) Type 2 diabetes mellitus 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) Active confirmed Vital Signs Blood pressure diastolic 70 mm Hg 03/08/2024 Height 5ft 7in in 03/08/2024 Blood pressure systolic 123 mm Hg 03/08/2024 Weight 250 lbs 03/08/2024 BMI 39.15 kg/m2 03/08/2024 Procedures Procedure Date Ordered Date Performed Result Body Sit e 82764-ZIVYFCS NAIL, 1-5 03/08/2024 N/A 60792-OOUY SKIN LESIONS, OVER 4 03/08/2024 N/A G0013-SCWMVAWY DYSTROPHIC NAILS ANY # 03/08/2024 N/A Encounters Encounter Location Date Provider Diagnosis [facility] [address] [address] 03/08/2024 Yrn Bill Type 2 diabetes mellitus with diabetic polyneuropathy E11.42 ; Tinea unguium B35.1 ; Other hammer toe(s) (acquired), right foot M20.41 and Other hammer toe(s) (acquired), left foot M20.42 [facility] [address] [address] 01/08/2024 Neha Perica Assessments Encounter Date Diagnosis (ICD Code) Assessment Notes Treatment Notes Treatment Clinical Notes Section Notes 03/08/2024 Tinea unguium (ICD-10 - B35.1) 03/08/2024 Type 2 diabetes mellitus with diabetic polyneuropathy (ICD-10 - E11.42) 03/08/2024 Other hammer toe(s) (acquired), right foot (ICD-10 - M20.41) Patient Educated with: DIABETIC FOOT CARE INSTRUCTIONS. pdf (DIABETIC FOOT CARE INSTRUCTIONS. pdf) 03/08/2024 Other hammer toe(s) (acquired), left foot (ICD-10 - M20.42) Plan Of Treatment Pending Test Test Name Order Date X ray : Foot, left 3V 12/23/2022 X ray : Foot, right 3V 12/23/2022 23848-LATILAW NAIL, 1-5 03/08/2024 84366-ZJHB SKIN LESIONS, OVER 4 03/08/20 M6985-LWDVUFFL DYSTROPHIC NAILS ANY # Next Appt Details Provider Name:Yrn Bill , 06/07/2024 12:45:00 PM, [address] [place], [address], Insurance Providers Payer Name Payer Address Payer Phone Subscriber Number Group Number Insured Name Patient Relationship to Insured Coverage Start Date Coverage End Date [facility] 65 Medicare [address] [place] [address] [id number] Janna Iyer Self - patient is the insured Medical (General) History Medical History History ICD Code Arthritis CAD (Cholesterol) Depression type II diabetes High blood pressure keloids Reflux ( GERD) Vascular phlebitis (clots) Measles Mumps Chicken pox Bone implants/screws Transfusions Surgical History Surgery Date(Month/Year) TK R+ R 10.4 02/09/16 TK R+ R 9. 03 06/02/2016
== END 2024-04-18 11:41 | disposition home or self-care (01) ==
LOC: HO.ACS 11:21
PROVIDERS: PCP Internal Medicine; Visit Provider Internal Medicine
DX: Z79.01 Long term (current) use of anticoagulants (principal)

== ENCOUNTER → 2024-04-18 11:21 | Outpatient (BNVA) | payer MEDICARE, SELFPAY | PROVIDERS: PCP Internal Medicine; Visit Provider Internal Medicine | DX: Z86.718 Personal history of other venous thrombosis and embolism (principal); Z79.01 Long term (current) use of anticoagulants; Z51.81 Encounter for therapeutic drug level monitoring | CPT/HCPCS: 85610; 99211 ==

== ENCOUNTER → 2024-04-26 11:05 | Outpatient (BNV) | payer MEDICARE, SELFPAY | PROVIDERS: PCP Internal Medicine; Referring Provider Internal Medicine; Visit Provider Internal Medicine Medical Oncology | DX: I80.202 Phlebitis and thrombophlebitis of unspecified deep vessels of left lower extremity (principal) | CPT/HCPCS: 99214 ==

== ENCOUNTER 2024-05-02 11:11 | Outpatient (AMB) | payer MEDICARE, SELFPAY ==
[2024-05-02 11:19] LABS: ~PT, ~INR - Anti Coag Clinic 1.9 (0.9-1.1)
--- NOTE | 2024-05-02 11:29 | MHC.OFFVISCO ---
Intake Intake Visit Reasons: Anticoagulation Allergies medroxyprogesterone [Provera] Allergy (Intermediate, Verified 05/02/24 11:12) SKIN PEELING niacin [From NIASPAN EXTENDED-RELEASE] Allergy (Intermediate, Verified 05/02/24 11:12) facial flushing atorvastatin [From Lipitor] Allergy (Mild, Verified 05/02/24 11:12) MUSCLE ACHES, myalgia gemfibrozil [From Lopid] Allergy (Mild, Verified 05/02/24 11:12) MUSCLE ACHES fluconazole [From DIFLUCAN] Allergy (Unknown, Verified 05/02/24 11:12) PER H&P empagliflozin [From Jardiance] Adverse Reaction (Mild, Verified 05/02/24 11:12) urinary incontinence nitroglycerin [From Nitro-Dur] Adverse Reaction (Mild, Verified 05/02/24 11:12) LOW BLOOD PRESSURE Medication List - Last Reconciled 05/02/24 by Bernadette Hutchinson, RN albuterol sulfate 90 mcg/actuation 2 puffs PO Q6H PRN 30 days apixaban (Eliquis) 5 mg PO BID apixaban (Eliquis DVT-PE Treat 30D Start) 5 mg PO BID bisacodyl (Dulcolax (bisacodyl)) 10 mg (2 x 5 mg) PO BEDTIME 2 days blood-glucose meter,continuous (FreeStyle Ara 3 [place]) As directed blood-glucose sensor (FreeStyle Ara 3 Plus Sensor device) As directed change every 14 days calcium carbonate-vitamin D3 (Calcium 600 + D(3)) 600 mg PO DAILY citalopram 20 mg PO DAILY 90 days hydrochlorothiazide 12.5 mg PO DAILY insulin degludec (Tresiba FlexTouch U-200 insulin) 120 units subcutaneously daily; 90 days lisinopril 20 mg PO DAILY 90 days metformin 500 mg PO DAILY 90 days omeprazole 20 mg PO DAILY pen needle, 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) BID PRN polyethylene glycol 3350 (Miralax) 238 grams PO ONCE 1 day semaglutide (Ozempic) 0.25 mg (0.368 mL) subcut QWEEK 28 days vitamin B complex 1 tab PO DAILY warfarin 10 mg See Protocol PO DAILY Nursing Note Amb to [facility] for exit INR, to start on Eloquis, has in her possesion Medications and supplements reviewed, has started on Ozempic No other changes in health, diet, medications, or supplements, Denies any signs and symptoms of bleeding, bruising, or clotting. INR 1.9 can start eloquis tonight discussed with pt 12 hour dosing, important not to miss doses, no blood monitoring required still need to monitor for Bleeding, bruising, and clotting informational packet given regarding eloquis for patients review pt will remove warfarin from pill box and start eloquis tonight Patient verbalizes understanding of instructions given Anti-Coag Initial Assessment Social Hx Patient Tobacco Use Status: Former Tobacco user Tobacco use type: Cigarette alcohol intake: former Alcohol intake frequency: holidays/special occasions only Coding Level of Care Code Est Patient Level 1 Diagnoses Current use of anticoagulant therapy Z79.01 Time Spent (min) 15 Assessment & Plan Assessment & Plan (1) Current use of anticoagulant therapy: Code(s): 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
== END 2024-05-02 11:44 | disposition home or self-care (01) ==
LOC: HO.ACS 11:11
PROVIDERS: PCP Internal Medicine; Visit Provider Internal Medicine
DX: Z79.01 Long term (current) use of anticoagulants (principal)

== ENCOUNTER → 2024-05-02 11:11 | Outpatient (BNVA) | payer MEDICARE, SELFPAY | PROVIDERS: PCP Internal Medicine; Visit Provider Internal Medicine | DX: Z86.718 Personal history of other venous thrombosis and embolism (principal); Z79.01 Long term (current) use of anticoagulants; Z51.81 Encounter for therapeutic drug level monitoring | CPT/HCPCS: 85610; 99211 ==

== ENCOUNTER 2024-05-27 08:00 | Outpatient (AMB) | payer MEDICARE, SELFPAY ==
--- NOTE | 2024-05-27 08:32 | A.OFFVIS_ITS ---
Intake Visit Reasons: urge and mixed incontinence Intake Note: New Patient presents for initial visit for incontinence Urology Medications: none Blood Thinner:warfarin,apixaban PVR:0ml's Cap Machine Operator Required: No Accompanied by: Self / Same As Patient Allergies medroxyprogesterone [Provera] Allergy (Intermediate, Verified 05/27/24 13:31) SKIN PEELING niacin [From NIASPAN EXTENDED-RELEASE] Allergy (Intermediate, Verified 05/27/24 13:31) facial flushing atorvastatin [From Lipitor] Allergy (Mild, Verified 05/27/24 13:31) MUSCLE ACHES, myalgia gemfibrozil [From Lopid] Allergy (Mild, Verified 05/27/24 13:31) MUSCLE ACHES fluconazole [From DIFLUCAN] Allergy (Unknown, Verified 05/27/24 13:31) PER H&P empagliflozin [From Jardiance] Adverse Reaction (Mild, Verified 05/27/24 13:31) urinary incontinence nitroglycerin [From Nitro-Dur] Adverse Reaction (Mild, Verified 05/27/24 13:31) LOW BLOOD PRESSURE Medication List - Last Reconciled 05/27/24 by SERA Sesay- apixaban (Eliquis) 5 mg PO BID bisacodyl (Dulcolax (bisacodyl)) 10 mg (2 x 5 mg) PO BEDTIME 2 days blood-glucose meter,continuous (FreeStyle Ara 3 [place]) As directed blood-glucose sensor (FreeStyle Ara 3 Plus Sensor device) As directed change every 14 days calcium carbonate-vitamin D3 (Calcium 600 + D(3)) 600 mg PO DAILY citalopram 20 mg PO DAILY 90 days hydrochlorothiazide 12.5 mg PO DAILY insulin degludec (Tresiba FlexTouch U-200 insulin) 120 units subcutaneously daily; 90 days lisinopril 20 mg PO DAILY 90 days metformin 500 mg PO DAILY 90 days omeprazole 20 mg PO DAILY pen needle, 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) BID PRN polyethylene glycol 3350 (Miralax) 238 grams PO ONCE 1 day vitamin B complex 1 tab PO DAILY HPI Comments Details: Janna is a 68-year-old female patient of Dr. Russell. She has a past medical history of type 2 diabetes, fatty liver, anxiety, depression, environmental allergies, and urge incontinence. She presents to the office today as a new patient for ongoing lower urinary tract symptoms she has been experiencing. 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 She reports noting urinary urgency, urinary frequency, and episodes of urinary incontinence if not near a bathroom. She reports she attempts to bathroom plan as well as perform timed voiding and does not feel these have been helpful. She reports having followed up with her side laster tack and recommendations were made for urology referral for further assessment evaluation . We discussed at length potential causes of these lower urinary tract symptoms. She does report a previous history of 2 vaginal births of average size babies. In office urinalysis results reviewed with the patient today. PVR 0 mL. We discussed further treatment options and risks and benefits of these treatment options. In review of patient's chart it appears A1c 04/07 7.2. We discussed obtaining retroperitoneal ultrasound for further assessment evaluation, bladder triggers/irritants, weight loss in relation to lower urinary tract symptoms, pelvic floor therapy, and importance of managing diabetes for improvement in lower urinary tract symptoms as well as overall health and well- being. [facility] Medical History Fatty liver determined by biopsy Urgency incontinence Fatty liver Anxiety and depression Shoulder pain, bilateral Environmental allergies LLL pneumonia Encounter for annual routine gynecological examination Contusion of foot Long-term insulin use Diabetes 1.5, managed as type 1 Surgical History History of revision of total replacement of right knee joint History of colonoscopy History of total left knee replacement (TKR) History of total right knee replacement (TKR) History of breast biopsy History of tonsillectomy Family History Father Type 2 diabetes mellitus Polymyalgia Mother Cancer of thyroid Sister Breast cancer Sister Leukemia Brother Diabetes mellitus HTN (hypertension) High cholesterol Social History Household Members: None Housing: House Alcohol intake: former Patient Tobacco Use Status: Former Tobacco user Tobacco use type: Cigarette Years Smoked: stopped 1984 e-Cigarette/Vaping Use: Never Used Advance Directives Date on File: 03/05/20 service: No Current occupational status: employed Cognitive needs: No Hearing needs: No Vision needs: Yes Female Reproductive History Menstrual Age of Menarche: 12 Review of Systems Const All systems reviewed & are unremarkable except as noted in HPI and below Physical Exam Const General: cooperative, healthy appearing, comfortable, no acute distress, well developed, alert and awake Nutritional Appearance: overweight Orientation/consciousness: patient oriented x3 Limitations: no limitations HEENT Head: Yes normal to inspection, Yes normocephalic and Yes atraumatic Ears: hearing grossly normal bilaterally Eyes General: appearance normal, both eyes and all related structures Neck Neck: Yes normal visual inspection and Yes trachea midline Chest Chest palpation & inspection: normal inspection of the chest Resp Effort & Inspection: normal respiratory effort and able to speak in complete sentences Cardio Rate: regular rate GI Inspection: Yes normal to inspection General: Yes no CVA tenderness Back/Spine/Pelvis Back: no CVA tenderness Skin General skin exam: no rashes or lesions noted Neuro General: patient oriented x3 Extrem General: Yes normal to inspection Psych Appearance: grossly normal and well kempt Mental Status: mental status grossly normal Speech and movement: Normal speech and movement present and Clear speech present Affect: normal affect Attitude: cooperative Thought process: Normal thought process present Thought content: Normal thought content present Insight: Fair insight present (Psych) Judgement: Fair judgement present (Psych) Office Procedures Post Void Residual Post Residual Void Post Void Residual (PVR): 0 81649-Vnsj Void Residual by ultrasound Results AMB Urinalysis, Automated UA Leukoctes 15 Rayshawn/uL Last Edit by DRAKE Pina on 05/27/24 08:46 UA Nitrite Negative Last Edit by DRAKE Pina on 05/27/24 08:46 UA Urobilinogen 0.2 mg/dL Last Edit by DRAKE Pina on 05/27/24 08:4 6 UA Protein 15 mg/dL Last Edit by DRAKE Pina on 05/27/24 08:46 UA pH 6.0 Last Edit by DRAKE Pina on 05/27/24 08:46 UA Blood 0 Jb/uL Last Edit by DRAKE Pina on 05/27/24 08:46 UA Specific [place] 1.015 Last Edit by DRAKE Pina on 05/27/24 08: 46 UA Ketone Negative Last Edit by DRAKE Pina on 05/27/24 08:46 UA Bilirubin 0 mg/dL Last Edit by DRAKE Pina on 05/27/24 08:46 UA Glucose 0 mg/dL Last Edit by DRAKE Pnia on 05/27/24 08:46 Results Reviewed Results Reviewed: Laboratory Last Values Urine pH (Auto) 6.0 05/27/24 08:35 Specific [place] (Auto) 1.015 05/27/24 08:35 Urine Protein (Auto) 15 mg/dL 05/27/24 08:35 Glucose (UA)(Auto) 0 mg/dL 05/27/24 08:35 Urine Ketones (Auto) Negative 05/27/24 08:35 Urine Blood (Auto) 0 Jb/uL 05/27/24 08:35 Urine Nitrite (Auto) Negative 05/27/24 08:35 Urine Bilirubin (Auto) 0 mg/dL 05/27/24 08:35 Urine Urobilinogen (Auto) 0.2 mg/dL 05/27/24 08:35 Leukocyte Esterase (Auto) 15 Rayshawn/uL 05/27/24 08:35 Assessment & Plan Assessment & Plan (1) Urinary incontinence, mixed: Code(s): N39.46 - Mixed incontinence Category: Medical (2) Mixed incontinence: Code(s): N39.46 - Mixed incontinence Category: Medical (3) Urgency incontinence: Code(s): N39.41 - Urge incontinence Category: Medical Plan In office urinalysis results reviewed with the patient today; as noted above. PVR 0 mL. Will obtain retroperitoneal ultrasound for further assessment evaluation. Start Myrbetriq as discussed and prescribed. We discussed at length potential causes of lower urinary tract symptoms patient was experiencing as well as further treatment options and risks and benefits of these treatment options. Discussed bladder triggers/irritants. Will refer to pelvic floor therapy for further assessment evaluation. We discussed importance of management and diabetes for improvement in lower urinary tract symptoms as well as overall health and well-being. Follow-up in 1-3 months with imaging and PVR; or sooner with any issues, concerns, and or questions. Orders: Orders AMB Post Void Residual by ultrasound Today N39.41 - Urge incontinence US retroperitoneal comp Today N39.41 - Urge incontinence, N39.46 - Mixed incontinence PT Evaluation and Treatment Today N39.41 - Urge incontinence, N39.46 - Mixed incontinence AMB Urinalysis Automated Today Z13.9 - Encounter for screening, unspecified Medications: New mirabegron ER (Myrbetriq) 25 mg PO DAILY 30 tabs 3RF 30 days N30.10 - Inter stitial cystitis (chronic) without hematuria, N32.81 - Overactive bladder, R35.1 - Nocturia, R39.15 - Urgency of urination Patient Instructions: The patient had an opportunity to ask questions regarding the treatment plan. All questions were answered. Physical exam, labs, and imaging were discussed and reviewed in detail. As well as risks, benefits, and discussion of treatment choices. No major barriers to understanding were identified. The patient expressed understanding and agreement with the above treatment plan. The patient was made aware they should contact our office by phone for worsening of their current condition, the appearance of new symptoms, or with any questions or concerns. Compliance is encouraged with any medications and follow up testing that is ordered. It is a privilege to be allowed the opportunity to participate in? your urological care.? Again, if you have any questions or concerns If you have any questions or concerns please do not hesitate to contact me. The office is [phone]. This note is constructed using voice recognition software. While every effort has been made to ensure accuracy horse groomer errors may have been included. Yours sincerely, SERA Sesay-ZANE Coding Level of Care Code New Pt Level 4 (71532) Diagnoses Urinary incontinence, mixed N39.46 Mixed incontinence N39.46 Urgency incontinence N39.41 CPT Codes Post Residual Void - PVR CPT Code: 35614-Ptuf Void Residual by ultrasound ([id number])
== END 2024-05-27 09:06 | disposition home or self-care (01) ==
PROVIDERS: PCP Internal Medicine; Visit Provider Nurse Practitioner Family
DX: N39.46 Mixed incontinence (principal)
CPT/HCPCS: 99204

== ENCOUNTER → 2024-05-27 08:00 | Outpatient (BNVA) | payer MEDICARE, SELFPAY | PROVIDERS: PCP Internal Medicine; Visit Provider Nurse Practitioner Family | DX: I12.9 Hypertensive chronic kidney disease with stage 1 through stage 4 chronic kidney disease, or unspecified chronic kidney disease (principal); N18.2 Chronic kidney disease, stage 2 (mild); N39.46 Mixed incontinence; N39.41 Urge incontinence | CPT/HCPCS: 51798; 81003; 99202; 99212 ==

== ENCOUNTER 2024-05-27 11:05 | Outpatient (AMB) | payer MEDICARE, SELFPAY ==
[2024-05-27 11:10] VITALS: BP 132/72; PULSE 74; O2SAT 95; BMI 44.9
--- NOTE | 2024-05-27 11:10 | HO.NEPHOV_ITS ---
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 Accompanied by: Self / Same As Patient Allergies medroxyprogesterone [Provera] Allergy (Intermediate, Verified 05/27/24 11:12) SKIN PEELING niacin [From NIASPAN EXTENDED-RELEASE] Allergy (Intermediate, Verified 05/27/24 11:12) facial flushing atorvastatin [From Lipitor] Allergy (Mild, Verified 05/27/24 11:12) MUSCLE ACHES, myalgia gemfibrozil [From Lopid] Allergy (Mild, Verified 05/27/24 11:12) MUSCLE ACHES fluconazole [From DIFLUCAN] Allergy (Unknown, Verified 05/27/24 11:12) PER H&P empagliflozin [From Jardiance] Adverse Reaction (Mild, Verified 05/27/24 11:12) urinary incontinence nitroglycerin [From Nitro-Dur] Adverse Reaction (Mild, Verified 05/27/24 11:12) LOW BLOOD PRESSURE Medication List - Last Reconciled 05/27/24 by Goran Lopez MD apixaban (Eliquis) 5 mg PO BID bisacodyl (Dulcolax (bisacodyl)) 10 mg (2 x 5 mg) PO BEDTIME 2 days blood-glucose meter,continuous (FreeStyle Ara 3 [place]) As directed blood-glucose sensor (FreeStyle Ara 3 Plus Sensor device) As directed change every 14 days calcium carbonate-vitamin D3 (Calcium 600 + D(3)) 600 mg PO DAILY citalopram 20 mg PO DAILY 90 days hydrochlorothiazide 12.5 mg PO DAILY insulin degludec (Tresiba FlexTouch U-200 insulin) 120 units subcutaneously daily; 90 days lisinopril 20 mg PO DAILY 90 days metformin 500 mg PO DAILY 90 days mirabegron ER (Myrbetriq) 25 mg PO DAILY 30 days omeprazole 20 mg PO DAILY pen needle, 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) BID PRN polyethylene glycol 3350 (Miralax) 238 grams PO ONCE 1 day vitamin B complex 1 tab PO DAILY HPI Comments Details: Janna is a pleasant 68-year-old woman with a history of diabetes mellitus for almost 30 years. Blood sugars have been well controlled. She has here for a renal evaluation. Serum creatinine has been around 1.06 mg/dL and has been reasonably stable over the last few years. She is currently on lisinopril 20 mg a day along with hydrochlorothiazide 12.5 mg. Back in 2020 she had urine microalbumin creatinine ratio was 272 which has decreased to 54 as of 2021. She has a history of DVT. She has been on Coumadin for more than 15 years. She was evaluated by Hematology few years ago and there was no definite to etiology determined for the DVT. From renal standpoint she has no specific complaints today. No headache nausea or vomiting. No shortness of breath. No polyuria polydipsia. No significant edema. [facility] Medical History Fatty liver determined by biopsy Urgency incontinence Fatty liver Anxiety and depression Shoulder pain, bilateral Environmental allergies LLL pneumonia Encounter for annual routine gynecological examination Contusion of foot Long-term insulin use Diabetes 1.5, managed as type 1 Surgical History History of revision of total replacement of right knee joint History of colonoscopy History of total left knee replacement (TKR) History of total right knee replacement (TKR) History of breast biopsy History of tonsillectomy Family History Father Type 2 diabetes mellitus Polymyalgia Mother Cancer of thyroid Sister Breast cancer Sister Leukemia Brother Diabetes mellitus HTN (hypertension) High cholesterol Social History Household Members: None Housing: House Alcohol intake: former Patient Tobacco Use Status: Former Tobacco user Tobacco use type: Cigarette Years Smoked: stopped 1984 e-Cigarette/Vaping Use: Never Used Advance Directives Date on File: 03/05/20 service: No Current occupational status: employed Cognitive needs: No Hearing needs: No Vision needs: Yes Female Reproductive History Menstrual Age of Menarche: 12 Physical Exam Vital Signs: Last Vital Signs Pulse 74 05/27/24 11:10 BP 132/72 05/27/24 11:10 Pulse Ox 95 05/27/24 11:10 Oxygen Delivery Method Room Air 05/27/24 11:10 BMI result Body Mass Index 44.9 Results AMB Urinalysis, Automated UA Leukoctes 15 Rayshawn/uL Last Edit by DRAKE Pina on 05/27/24 08:46 UA Nitrite Negative Last Edit by Chirag Yuen [facility] on 05/27/24 08:46 UA Urobilinogen 0.2 mg/dL Last Edit by Chirag Yuen [facility] on 05/27/24 08:4 6 UA Protein 15 mg/dL Last Edit by Chirag Yuen [facility] on 05/27/24 08:46 UA pH 6.0 Last Edit by Chirag Yuen [facility] on 05/27/24 08:46 UA Blood 0 Jb/uL Last Edit by Chirag Yuen [facility] on 05/27/24 08:46 UA Specific [place] 1.015 Last Edit by Chirag Yuen [facility] on 05/27/24 08: 46 UA Ketone Negative Last Edit by Chirag Yuen [facility] on 05/27/24 08:46 UA Bilirubin 0 mg/dL Last Edit by Chirag Yuen [facility] on 05/27/24 08:46 UA Glucose 0 mg/dL Last Edit by Chirag Yuen [facility] on 05/27/24 08:46 Results Reviewed Nephrology Results: Hgb 14.4 g/dl (12.0-16.0) 04/26/24 WBC 6.0 X10*3/uL (4.8-10.8) 04/26/24 Plt Count 202 X10*3/uL (160-400) 04/26/24 Sodium 141 mmol/L (135-145) 04/26/24 Potassium 4.3 mmol/L (3.3-5.1) 04/26/24 Chloride 108 mmol/L (96-108) 04/26/24 Carbon Dioxide 29 mmol/L (22-29) 04/26/24 BUN 21 mg/dL (9-16) H 04/26/24 Creatinine 0.97 mg/dL (0.5-1.4) 04/26/24 Calcium 9.3 mg/dL (8.4-10.2) 04/26/24 Assessment & Plan Assessment & Plan (1) Hypertension, essential: Code(s): I10 - Essential (primary) hypertension Category: Medical (2) Chronic kidney disease, stage 2 (mild): Code(s): N18.2 - Chronic kidney disease, stage 2 (mild) Category: Medical Plan Pleasant 68 year woman with hypertension diabetes mellitus and obesity with mild CKD. Renal function stable with a creatinine of 1.01. She probably has CKD stage 2. She would microalbuminuria most likely due to underlying diabetic hypertensive kidney disease. Obesity would be a contributing factor as well. Goal is to slow the progression of renal disease. Continue with HENRIQUE inhibitor for renal protection Maintain blood pressure less than 130/80. Discussed importance of tight control blood sugar to slow the progression of disease. Avoid nephrotoxic agents including NSAIDs. Encouraged her to increase her fluid intake. Stay on low-sodium diet. She will benefit from SGLT2 inhibitor however she could not manage side effects of JArdiance She has been on anticoagulation for more than 15 years. She has not had DVTs renal almost 15 years. I have encouraged her to follow-up with hematology Orders: Orders Basic Metabolic Panel 1 Year I10 - Essential (primary) hypertension Total Protein Urine Random 1 Year I10 - Essential (primary) hypertension UA and rflx microscopic 1 Year I10 - Essential (primary) hypertension Creatinine Urine 1 Year I10 - Essential (primary) hypertension Coding Level of Care Code Est Pt Level 4 (24436) Diagnoses Hypertension, essential I10 Chronic kidney disease, stage 2 (mild) N18.2
--- OUTSIDE RECORDS SUMMARY | 2024-05-27 12:58 | XMS_ITS ---
Author Organization [facility] Address [address] [place] [address] Care Team Providers Care Imaging Nurse Name Role Phone Jabier Russell Primary Care Provider Neha Roach Unavailable [phone] Yrn Bill Unavailable [phone] Allergies Allergen (clinical drug ingredient) Drug/Non Drug [...] Date Details (start date - stop date) Never Smoker NA - NA Alcohol Screen Question Answer Notes Did you have a drink contain ing alcohol in the past year? Yes How often did you have a dri nk containing alcohol in the past year? Monthly or less (1 point) Points 1 Interpretation Negative Tobacco use other than smoking: Question Answer Notes Are you an other tobacco user? No Tobacco Control (Standard) Question Answer Notes Tobacco use: Nonsmoker Problems Problem Type SNOMED Code ICD Code Onset Dates Problem Status W/U Status Risk Notes Problem Polyneuropathy due to type 2 diabetes mellitus (559453287) Type 2 diabetes mellitus 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) Active confirmed Problem Acquired hammer toe of right foot (0813347721258868 ) Other hammer toe(s) (acquired), right foot (M20.41) Active confirmed Problem Acquired hammer toe of left foot (4803294832144015 ) Other hammer toe(s) (acquired), left foot (M20.42) Active confirmed Vital Signs Height 5ft 7in in 03/08/2024 Weight 250 lbs 03/08/2024 BMI 39.15 kg/m2 03/08/2024 Blood pressure systolic 123 mm Hg 03/08/20 24 Blood pressure diastolic 70 mm Hg 024 Procedures Procedure Date Ordered Date Performed Result Body Sit e 62276-WYZFRKH NAIL, 1-5 03/08/2024 N/A 35478-QSDW SKIN LESIONS, OVER 4 03/08/2024 N/A O5572-WGFOVMTY DYSTROPHIC NAILS ANY # 03/08/2024 N/A Encounters Encounter Location Date Provider Diagnosis [facility] [place] [address] [place] [address] 03/08/2024 Yrn Bill Type 2 diabetes mellitus [...] INSTRUCTIONS.pdf) Pending Test Test Name Order Date 04016-RCFQWKC NAIL, 1-5 03/08/2024 95114-NMNG SKIN LESIONS, OVER 4 03/08/20 J8937-BPQJAAWY DYSTROPHIC NAILS ANY # Next Appt Details Follow Up: prn, Reason: Provider Name:Yrn Bill , 06/07/2024 12:45:00 PM, [address] [place] [address], [phone], Procedure Notes * Category Sub-Category Detail Notes Keratoma Treatment Parring or Cutting o f Benign Hyperkeratotic Lesion(s) (-57) More than 4 Lesions - The Benign hyperkeratotic lesions, as described above were pared, and/or cut utilizing a sterile 15 blade, tissue nippers, and/or dremel - 68363 Debride Nails 1-5 Procedure: Performance of this nail treatment by a nonprofessional would put this patients foot and overall health at risk. Therefore, nail debridement was performed extensively to reduce/remove overall nail length, girth, thickness, subungual debris, and necrotic tissue, by manual and/or electrical means through the use of a nail nipper and/or dremel-type rail grinder, to a more viable healthy nail plate or bed tissue 1-5. Silver nitrate used for any petechial bleeding as necessary. Definitive antifungal treatment options have been reviewed and discussed with the patient. The patient chooses, no pharmaceutical tx - 00874 Nail Reduction Nail Reduction (-27) Trimming o f dystrophic nails performed to reduce/remove overall nail length and girth, by manual and electrical means with use of a nail nipper and/or dremel, to more viable healthy nail plate or bed tissue, any number - G0127 Progress Notes * Janna IYERDOB:[birth year] (68 yo F)Acc No.[id number]:03/08/2024 Progress Note Patient:?Janna IYER Provider:?Yrn Bill DPM :1955???Age:68 Y???Sex:Female D ate:03/08/2024 Address:[address] [place] [address], [place], [id number] Pcp:Jabier Russell Subjective: * Chief Complaints: * ???At Risk FootcareToe Irrit ation * HPI: ???At Risk footcare:?Pt States Last PCP Visit:?Date?01/26/2024 ???Toe pain:?Location:?B/L feet.?Duration:?several years.?Course:?worse.?Aggravated by:?shoes, any pressure.?Treatments:?change in shoes.? * ROS:?General/Constitutional:?Nausea?denies.?Vomiting?denies.?Hunger Thirst?denies.?Loss appetite?denies.?Chills?denies.?Fatigue?denies.?Fever?denies.?Night Sweats?denies.?Unexplained weight loss?denies.?Unexplained weight gain?denies.?HEENTM:?Dentures?denies.?Dizziness?denies.?Glasses/contacts?denies.?Retinopathy?den ies.?Blurred/double vision?denies.?TMJ?denies.?Discharge/drainage?denies.?Implants?denies.?Sore throat?denies.?Dental implants?denies.?Hard of hearing ?denies.?Difficulty chewing/swallowing/speaking?denies.?Nose bleeds?denies.?Sore mouth?denies.?Respiratory:?On O xygen?denies.?Pneumonia/pleurisy?denies.?Bronchitis?denies.?Emphysema?denies.?Co ughing?denies.?Cough blood?denies.?Shortness of breath?denies.?Wheezing?denies.?Cardiovascular:?Pacemaker?denies.?MVP?denies.?WPW?denies.?CHF?denies.?Heart attack?denies.?Septal defect?denies.?Rapid beat?denies.?Chest pain ?denies.?Atrial Fib.?denies.?Murmur/Palpitations?denies.?Gastrointestinal:?Hemorrhoids?denies.?Stomach/Abdominal pain?denies.?Dark blood stool?denies.?Irritable bowel ?denies.?Constipation?denies.?Diarrhea?denies.?Hematology:?Swelling?admits.?Clots?denies.?Varicose Veins?denies.?Bruising?denies.?Bleeding problem?denies.?Genitourinary:?Blood urine?denies.?Frequent/Painfu/urination/bladder control?denies.?Kidney stones?denies.?Infection (UTI)?denies.?Nephropathy?denies.?sex trans dis (STD)?denies.?Prostate?denies.?Musculoskeletal:?Hammertoes?admits.?Bunions?denies.?Back Pain?denies.?Muscle Cramps/ Resting?denies.?Muscle cramps / walking?denies.?Generalized aches and pains?denies.?Weakness?denies.?Integ.:?Snyder?denies.?Scars?denies.?Corns/calluses?admits.?Ingrown nails?admits.?Painful nails?denies.?Open Sores?denies.?Rashes?denies.?Neurologic:?Difficulty sleeping?denies.?Brain disorder?denies.?Numbness?denies.?Balance t rouble?denies.?Confusion?denies.?Fainting/blackouts?denies.?Tingling?denies.?Nick mors?denies.? * Medical History:? * Surgical History:?TK R+ [...] of unspecified site.? * Social History:?Tobacco Use:?Tobacco use other than smoking?Are you an other tobacco user??No ?Tobacco Control (Standard)?Tobacco use:?Nonsmoker ???Drugs/Alcohol:?Drugs?Have you used drugs other than those [...] ?Exercise: yes, Daily. ?Marital status: single. 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 * Medications:?TakingOmeprazol e 20 MG Capsule Delayed [...] * Vitals:?Ht:5ft 7in, Wt:250, BMI:39.15, Shoe size:11W, BP:123/70mm Hg, BS:not taken, Ht-cm: 170.18 cm, Wt-k.4 [...] gear properties exacerbate patient's foot/toe deformity.?Vascular: ?DP PULSES (B):?3/4, B/L.?PT PULSES (B):?2/4, B/L.?CAPILLARY FILL TIME:?immediate, all digits, B/L.?TROPHIC CONDITION-TEXTURE/ELASTICITY/TURGOR/HAIR GROWTH (B):?normal, B/L.?TEMPERTURE GRADIENT (C):?normal, warm to cool, proximal to distal, B/L, B/L.?PIGMENTATION:?normal, B/L.?EDEMA (C):?2/4 , pitting , without aching pain , [...] Evaluation? Assessment: * Assessment: 1.?Tinea unguium - B35.1???2 .?Type 2 diabetes mellitus with diabetic polyneuropathy - E11.42 (Primary)???3.?Other hammer toe(s) (acquired), right foot - M20.41???Specify :Chronic problem, Worse (4),Rx Management (4)???4.?Other hammer toe(s) (acquired), left foot - M20.42???Specify :Chronic problem, Worse (4),Rx Management (4)??? Plan: * Treatment: 2.?Other hammer toe(s) (acqu [...] use of a nail nipper and/or dremel-type rail grinder, to a more viable healthy nail plate or bed tissue 1-5. Silver nitrate used for any petechial bleeding as necessary. Definitive antifungal treatment options have been reviewed and discussed with the patient. The patient chooses, no pharmaceutical tx - 19475.?Keratoma Treatment:?Parring or Cutting of Benign Hyperkeratotic Lesion(s)?(-57) More than 4 Lesions - The Benign hyperkeratotic lesions, as described above were pared, and/or cut utilizing a sterile 15 blade, tissue nippers, and/or dremel - 72332.?Nail Reduction:?Nail Reduction?(-27) Trimming of dystrophic nails performed to reduce/remove overall nail length and girth, by manual and electrical means with use of a nail nipper and/or dremel, to more viable healthy nail plate or bed tissue, any number - G0127.? * Procedure Codes:?G0127 ESTELA ING DYSTROPHIC NAILS ANY #, Modifiers: XS 97609 DEBRIDE NAIL, 1-5, Modifiers: XS 97715 TRIM SKIN LESIONS, OVER 4, Modifiers: XS [...] Provider:?Yrn Bill DPM Date:?2023 Generated for Isamar brand/Benjamin/Zofia on:?05/27/2024 12:57 PM EST History and Physical Notes * HPI [...] Lower Extremity Neurological Exa m performed:: Yes Visual exam of foot performed:: Yes Date: 03/08/2024 ORIENTED: person, place, and t adriana Footwear Evaluation Footwear Evaluation performe d:: Yes Ophthalmology Referral DIABETES EYE EXAM Procedure Perform ed:: Yes ?Date of Exam Performed: 01/29/2024 Diabetic Retinopathy Screening:: Yes Findings of Diabetic Eye Exam:: no retin opathy Vascular DP PULSES (B): 3/4, B/L PT PULSES (B): 2/4, B/L CAPILLARY FILL TIME: immediate, all digi ts, B/L TEMPERTURE GRADIENT (C): normal, warm to cool, proximal to distal, B/L, B/L TROPHIC CONDITION-TEXTURE/ELASTICITY/TURGOR/HAIR GROWTH (B): normal, B/L EDEMA (C): 2/4 , pitting , with out aching pain , Leg(s) , Ankle(s) , Foot , B/L PIGMENTATION: normal, B/L Nails NAILS are: Elongated, overg rown, dystrophic, lytic, greater than 3mm thick, discolored and friable with crumbly malodorous subungual debris , TA , T5 , remaining nails are elongated, overgrown, dystrophic
--- OUTSIDE RECORDS SUMMARY | 2024-05-27 12:58 | XMS_ITS | Patient Health Record ---
Author Organization [facility] Address [address] [facility] [place] [address] Care Team Providers Care Mold Worker Name Role Phone DrewSuzannecliff Primary Care Provider Neha Roach Unavailable [phone] Yrn Bill Unavailable [phone] Allergies Allergen (clinical drug ingredient) Drug/Non Drug [...] Problem Acquired hammer toe of right foot (7665648044367207 ) Other hammer toe(s) (acquired), right foot (M20.41) Active confirmed Problem Acquired hammer toe of left foot (0622906459521546 ) Other hammer toe(s) (acquired), left foot (M20.42) Active confirmed Problem Polyneuropathy due to type 2 diabetes mellitus (929522804) Type 2 diabetes mellitus 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) Active confirmed Vital Signs Blood pressure diastolic 70 mm Hg 03/08/2024 Height 5ft 7in in 03/08/2024 Blood pressure systolic 123 mm Hg 03/08/2024 Weight 250 lbs 03/08/2024 BMI 39.15 kg/m2 03/08/2024 Procedures Procedure Date Ordered Date Performed Result Body Sit e 95638-JPYSVBN NAIL, 1-5 03/08/2024 N/A 81210-URBV SKIN LESIONS, OVER 4 03/08/2024 N/A W3775-USOZROHN DYSTROPHIC NAILS ANY # 03/08/2024 N/A Encounters Encounter Location Date Provider Diagnosis [facility] [address] [address] 03/08/2024 Yrn Bill Type 2 diabetes mellitus with diabetic polyneuropathy E11.42 ; Tinea unguium B35.1 ; Other hammer toe(s) (acquired), right foot M20.41 and Other hammer toe(s) (acquired), left foot M20.42 [facility] [address] [address] 01/08/2024 Neha Horne Assessments Encounter Date Diagnosis (ICD Code) Assessment [...] X ray : Foot, right 3V 12/23/2022 08296-VIKFWTC NAIL, 1-5 03/08/2024 41309-RMPH SKIN LESIONS, OVER 4 03/08/20 R5691-CVTCLDRG DYSTROPHIC NAILS ANY # Next Appt Details Provider Name:Yrn Maverick Bill , 06/07/2024 12:45:00 PM, [address] [place] [address], [address], Insurance Providers Payer Name Payer Address Payer Phone Subscriber Number Group Number Insured Name Patient Relationship to Insured Coverage Start Date Coverage End Date [facility] 65 Medicare Preferred [address] [place] [address] [id number] Janna Iyer Self - patient is the insured Medical (General) History Medical History History ICD Code Arthritis CAD (Cholesterol) Depression type II diabetes High blood pressure keloids Reflux ( GERD) Vascular phlebitis (clots) Measles Mumps Chicken pox Bone implants/screws Transfusions Surgical History Surgery Date(Month/Year) TK R+ R 10.4 02/09/16 TK R+ R 9. 03 06/02/2016
--- OUTSIDE RECORDS SUMMARY | 2024-05-27 12:58 | XMS_ITS ---
Author Organization [facility] Address [address] [place] [address] Care Team Providers Care Pants Closer Name Role Phone Jabier Russell Primary Care Provider Neha Roach [phone] REASON FOR VISIT rs appt 01/09/24 Encounters Encounter Location Date Provider Diagnosis [address] [address] 01/08/2024 Neha Horne Plan Of Treatment Next Appt Details Provider Name:Yrn Bill , 06/07/2024 12:45:00 PM, [address] [place], [address], Progress Notes * Janna IYERDOB:[birth year] (68 yo F)Acc No.[id number]:01/08/2024 Patient:?ShireenJanna :1955???Age:68 Y???Sex:Female Address:[address] [place] [phone] * true * Date:? Generated for Printi ng/Famosheg/eTransmitting on:?05/27/2024 12:58 PM EST
--- OUTSIDE RECORDS SUMMARY | 2024-05-27 12:58 | XMS_ITS ---
Author Organization [facility] Address [address] [place] [address] Care Team Providers Care Carton Waxing Machine Operator Name Role Phone Jabier Russell Primary Care Provider UnavailNeha Tidwell Unavailable [phone] Yrn Bill Unavailable [phone] Encounters Encounter Location Date Provider Diagnosis [address] [address] 01/09/2024 Yrn Bill Plan Of Treatment Next Appt Details Provider Name:Yrn Bill , 06/07/2024 12:45:00 PM, [address] [place] [address], [phone], Progress Notes * SHIREENCheryl GOMEZcori MoniqueDOB:[birth year] (68 yo F)Acc No.[id number]:01/09/2024 Progress Note Patient:?Janna IYER Provider:?Yrn Bill DPM :1955???Age:68 Y???Sex:Female D ate:01/09/2024 Address:[address] [place], [place] [id number] Pcp:Jabier Russell Subjective: * Chief Complaints: * [...] DPM Date:?2023 Generated for Isamar brand/Benjamin/Zofia on:?05/27/2024 12:58 PM EST
== END 2024-05-27 11:24 | disposition home or self-care (01) ==
PROVIDERS: PCP Internal Medicine; Visit Provider Internal Medicine Hypertension Specialist
DX: I12.9 Hypertensive chronic kidney disease with stage 1 through stage 4 chronic kidney disease, or unspecified chronic kidney disease (principal); N18.2 Chronic kidney disease, stage 2 (mild)
CPT/HCPCS: 99214

== ENCOUNTER 2024-06-11 11:01 | Outpatient (AMB) | payer MEDICARE, SELFPAY ==
--- NOTE | 2024-06-11 08:53 | A.OFFVIS_ITS ---
Vital Signs 06/11/24 11:08 Height 5 ft 7 in Weight 277 lb 12.519 oz BMI 43.5 BP 151/82 H Blood Pressure Location Rt brachial Position Sitting Pulse 72 Pulse Source Pulse Oximeter Intake Visit Reasons: DM Intake Note: Patient presents today for a follow-up on Type 2 Diabetes Mellitus: Last Diabetic eye exam was on: 07/14/2023 Last Podiatry exam was on: Patient last seen 02/13/2024 Most recent HbA1c: 7.2%, 03/28/2024 Random Glucose- 132 mg/dL, Today Student Development Coordinator Required: No Accompanied by: Self / Same As Patient Allergies medroxyprogesterone [Provera] Allergy (Intermediate, Verified 06/11/24 11:10) SKIN PEELING niacin [From NIASPAN EXTENDED-RELEASE] Allergy (Intermediate, Verified 06/11/24 11:10) facial flushing atorvastatin [From Lipitor] Allergy (Mild, Verified 06/11/24 11:10) MUSCLE ACHES, myalgia gemfibrozil [From Lopid] Allergy (Mild, Verified 06/11/24 11:10) MUSCLE ACHES fluconazole [From DIFLUCAN] Allergy (Unknown, Verified 06/11/24 11:10) PER H&P empagliflozin [From Jardiance] Adverse Reaction (Mild, Verified 06/11/24 11:10) urinary incontinence nitroglycerin [From Nitro-Dur] Adverse Reaction (Mild, Verified 06/11/24 11:10) LOW BLOOD PRESSURE ozempic Adverse Reaction (Intermediate, Uncoded 06/11/24 11:25) Headache Medication List - Last Reconciled 06/11/24 by Noemy Fair NP apixaban (Eliquis) 5 mg PO BID bisacodyl (Dulcolax (bisacodyl)) 10 mg (2 x 5 mg) PO BEDTIME 2 days blood-glucose meter,continuous (prollieStInstaMed Ara 3 Wrights) As directed blood-glucose sensor (FreeStyle Ara 3 Plus Sensor device) As directed change every 14 days calcium carbonate-vitamin D3 (Calcium 600 + D(3)) 600 mg PO DAILY citalopram 20 mg PO DAILY 90 days hydrochlorothiazide 12.5 mg PO DAILY insulin glargine (Lantus Solostar U-100 Insulin) 54 units subcut BID lisinopril 20 mg PO DAILY 90 days metformin 500 mg PO DAILY 90 days mirabegron ER (Myrbetriq) 25 mg PO DAILY 30 days omeprazole 20 mg PO DAILY pen needle, 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) BID PRN polyethylene glycol 3350 (Miralax) 238 grams PO ONCE 1 day tirzepatide (Mounjaro) 2.5 mg subcut QWEEK vitamin B complex 1 tab PO DAILY HPI Comments Details: Patient is a 68-year-old female with a significant past medical history of prior DVT, on chronic anticoagulation, CKD, diabetic nephropathy, long-term insulin use and hypertension presenting today for a follow-up regarding her diabetes She was dx with dm 30 years ago. A1C 7.2% 03/28/24 down from previous 7.6% and 8% Ozempic caused headache and nausea was unable to take Trial of Jardiance 2023 and had urinary symptoms: Incontinence Current medication: Lantus 60 units bid Mounjaro 2.5mg started one week ago, minimal side effects Doesn't have sensor with her. No idea what it's been running but has felt low a few times. She will come to the office next week with her sensor for download. -Mother had thyroid cancer and metastatic abdominal cancer (not sure if involving pancreas). She was able to discuss her mother's history with her sister in the thyroid cancer she had was papillary thyroid cancer -in the past treated with glyburide but did not tolerate it. Last eye exam over due is [place] [facility] [place] NO prior h/o retinopathy. complications include nephropathy and neuropathy Recently seen by Podiatry and has new shoes and inserts. She is working on sha ving down callus on the plantar aspect of her foot near the heel. Recent dexa: normal bone density She follows with nephrology and is due for f/u. She is on lisinopril 20 mg and hydrochlorothiazide 12.5. Did not tolerate statins or gemfibrozil or niacin. Recent liver elastography: enlarged liver, fatty, no advanced disease. GI consult was placed but GI addressed colonscopy screening, [facility] Medical History (Updated 06/11/24 @ 14:00 by Noemy Fair NP) Type 2 diabetes mellitus Fatty liver determined by biopsy Urgency incontinence Fatty liver Anxiety and depression Shoulder pain, bilateral Environmental allergies LLL pneumonia Encounter for annual routine gynecological examination Contusion of foot Long-term insulin use Surgical History History of revision of total replacement of right knee joint History of colonoscopy History of total left knee replacement (TKR) History of total right knee replacement (TKR) History of breast biopsy History of tonsillectomy Family History Father Type 2 diabetes mellitus Polymyalgia Mother Cancer of thyroid Sister Breast cancer Sister Leukemia Brother Diabetes mellitus HTN (hypertension) High cholesterol Social History Household Members: None Housing: House Alcohol intake: former Patient Tobacco Use Status: Former Tobacco user Tobacco use type: Cigarette Years Smoked: stopped 1984 e-Cigarette/Vaping Use: Never Used Advance Directives Date on File: 03/05/20 service: No Current occupational status: employed Cognitive needs: No Hearing needs: No Vision needs: Yes Female Reproductive History Menstrual Age of Menarche: 12 Physical Exam Vital Signs: Last Vital Signs Pulse 72 06/11/24 11:08 BP 151/82 H 06/11/24 11:08 BMI result Body Mass Index 43.5 Const Other: Absence of Cushingoid features. Absence of acromegalic features. Neck exam revea ls nl size thyroid about 15 gms. No thyroid nodules palpable. No carotid bruits present. Lungs CTA. Heart S1 S2, Reg R/R. No M/R G. Skin exam reveals absence of vitiligo or acanthosis nigricans. No edema Visual exam of foot performed. No ulcerations or open lesions. No inter digit maceration or fissuring. No onychomycosis, flat callous plantar aspect near heel. Sensation intact to monofilament exam. Vibratory sensation is normal with 128 Hz tuning fork. Results Reviewed Results Reviewed: Laboratory Last Values Glucose (Clinic) 132 mg/dL (60-115) H 06/11/24 11:17 Assessment & Plan Assessment & Plan (1) Type 2 diabetes mellitus: Code(s): E11.9 - Type 2 diabetes mellitus without complications Category: Medical Plan: 68 year old type 2 diabetic with improving glycemic control. She has had a fewmild lows but does not have her sensor with her, She will reduce insulin dose and bring hr sensor in for review. If she has any additional lows she will reduce insulin by another 6 units per dose,. Would not recommend increasing Mounjaro to 5 mg as she has had headaches and symptoms on other GLP 1 agonist and she is tolerating the low dose with improved numbers and weight reduction of 10 lb since last visit. New dosing: Lantus 54 units twice daily Mounjaro 2.5mg Medications: New tirzepatide (Mounjaro) for 4 weeks 2.5 mg (0.5 mL) subcut QWEEK 28 days 2 mL 11RF tirzepatide (Mounjaro) for 4 weeks 2.5 mg (0.5 mL) subcut QWEEK 28 days 2 mL 11RF Patient Instructions: Take 15 carb carbohydrate grams to treat a low sugar (3-4 glucose tablets, half a glass of juice or 15 carbohydrate grams of soft candy such as gummie snacks). Recheck your sugar in 15 minutes and re-treat again with 15 carbohydrate grams if low or still with symptoms. Do not drive a car or operate machinery if you do not know what your blood sugar is, if it is low or in excess of 300. Check your feet daily looking for any signs of infection, drainage, redness, ulceration and seek medical attention if this occurs. Break in shoes gradually and do not wear open-toed shoes or walk stocking footed or barefooted. The patient was counseled to achieve a target A1C of 7% (154 avg). Fasting blood sugars should be 90-130 in the morning and less than 180 two hours after meals. Reviewed the relationship between poor diabetic control and the development of complications. Coding Level of Care Code Est Pt Level 4 (69554) Complex EM visit Add On G2211 Diagnoses Type 2 diabetes mellitus E11.9 Time Spent (min) 30 Comment Time spent reviewing labs/provider notes, face to face, chart doc
[2024-06-11 11:08] VITALS: BP 151/82; PULSE 72; BMI 43.5
[2024-06-11 11:23] LABS: Glucose, Whole Blood 132 mg/dL (60-115)
--- OUTSIDE RECORDS SUMMARY | 2024-06-11 12:17 | XMS_ITS | Clinical Summary ---
Author Organization [facility], Address [address] [place] [address] [place] [address] Phone Care Team Providers Care Research Asst Name Role Phone Ricco Hill MD Primary Care Provider [phone] Allergies Active Allergy Reactions Criticality Noted Date Comments Medroxyprogesterone Other (see comments) 2019 Statins Other (see comments) 05/29/2019 Medications citalopram (CeleXA) 20 MG tablet Take 1 tablet by mouth 1 (one) time each day 07/11/2016 Active hydroCHLOROthia zide (MICROZIDE) 12.5 MG capsule Take 1 capsule by mouth 1 (one) time each day 07/11/2016 Active insulin glargine (LANTUS) 100 UNIT/ML injection Comments: Filled Date: Nov 21 2016 12:00AM 11/18/2016 Active lisinopril (PRINIVIL,ZESTR IL) 20 MG tablet Take 1 tablet by mouth 1 (one) time each day 07/11/2016 Active metFORMIN (GLUCOPHAGE) 1000 MG tablet Take 1 tablet by mouth 2 (two) times a day 11/18/2016 Active omeprazole (PriLOSEC) [address] capsule Take 1 capsule by mouth 1 (one) time each day 11/10/2015 Active Active Problems Problem Noted Date Diagnosed Date Chronic kidney disease stage 2 05/29/2019 Essential hypertension 05/29/2019 Family History Medical History Relation Comments Diabetes Father Cancer Mother thyroid/pamcreat ic/thryoid Dementia Mother Heart disease Mother Hypertension Mother Cancer Sibling 1 sister/leukemia, sister/breast Diabetes Sibling 1 brother Heart disease Sibling 1 breast Hypertension Sibling 1 brother/sisters Hypertension Sibling 2 brother, sister Cancer Sibling 3 sister breast ca x2, sister leukemia Relation Status Comments Father Alive Mother Sibling 1 Sibling 2 Sibling 3 Social History Tobacco Use Types Packs/Day Years Used Date Smoking Tobacco: Former Cigarettes Q uit: 11/24/1984 Alcohol Use Standard Drinks/Week Comments Yes 0 (1 standard drink = 0.6 oz pure alcohol) Alcoholic Drinks/day: Occasional social drink Comments Unknown Sex and Gender Information Value Date Recorded Sex Assigned at Not on file Legal Sex Female 4:36 PM EST Gender Identity Not on file Sexual Orientation Not on file Last Filed Vital Signs Vital Sign Reading Time Taken Comments Blood Pressure 120/70 08/07/2018 12:00 PM EDT Pulse - - Temperature - - Respiratory Rate - - Oxygen Saturation - - Inhaled Oxygen Concentration - - Weight 128 kg (283 lb) 08/07/2018 12:00 PM EDT Height 170.2 cm (5' 7 ) 08/07/2018 12:00 PM EDT Body Mass Index 44.32 08/07/2018 12:00 PM EDT Plan of Treatment Health Maintenance Due Date Last Done Comments Breast Cancer Screening 1955 Colorectal Cancer Screening: Annual FOBT 2006 Colorectal Cancer Screening: Colonoscopy 2006 Colorectal Cancer Screening: Sigmoidoscopy 2006 Pneumococcal Vaccine: 65+ Years (2 of 2 - PCV) 09/18/2013 09/18/2012 Diabetes: Hemoglobin A1C 07/07/2020 018, 09/25/2017, 05/01/2017 Diabetes: Ophthalmology Exam 07/07/2020 Diabetes: Pedal Pulse Checked 07/07/2020 Diabetes: Sensory Foot Exam 07/07/2020 Diabetes: Visual Foot Exam 07/07/2020 Influenza Vaccine (#1) 2024 Hepatitis B Vaccine Aged Out No longe r eligible based on patient's age to complete this topic Procedures Procedure Name Priority Date/Time Associated Diagnosis Comments LAB AUDIO VIDEO TECHNICIAN Routine 09/25/2017 12:00 AM EDT from Last 3 Months or Most Recently Relevant to Health Maintenance Results * Lab Ordnance Technician (09/25/2017 12:00 AM EDT) Carbon Dioxide (CO2) 27 22 - 29 mmol/L [facility] Hgb 14.7 12.0 - 16.0 g/dL [facility] Hemoglobin A1C 6.7 % [facility] Sodium 141 133 - 145 mmol/L [facility] Platelets 165 150 - 450 K/uL [facility] WBC 6.2 4.5 - 11.0 K/uL [facility] Hematocrit 41.8 % [facility] Potassium 3.9 3.6 - 5.2 mmol/L [facility] BUN 16 8 - 23 mg/dL [facility] Creatinine 0.87 0.4 - 1.1 mg/dL [facility] GFR Calculated >60 ml/min [facility] Calcium 9.5 8.4 - 10.2 mg/dL [facility] Phosphorus, Serum 4.3 2.5 - 4.5 mg/dL [facility] 09/25/2017 us [facility] Conversion LAB BIMINXONDD-HGCUSBKATOL-KIAM LICITED RESULTS Final Result [facility] from Last 3 Months or Most Recently Relevant to Health Maintenance Insurance [facility] Care Teams Research Asst Relationship Specialty Start Date End Date Ricco Hill MD 1959 [facility] [place] [address] PCP - General 03/19/19
--- OUTSIDE RECORDS SUMMARY | 2024-06-11 12:17 | XMS_ITS | Patient Health Record ---
Author Organization [facility] Address [address] [facility] [place] [address] Care Team Providers Care Historical Society Director Name Role Phone DrewJabier Primary Care Provider Neha Roach Unavailable [phone] Yrn Bill Unavailable [phone] Allergies Allergen (clinical drug ingredient) Drug/Non Drug Allergy documented on EMR Reaction Allergy Type Onset Date Status medroxyprogesterone Provera Unknown Drug Allergy Active Latex Latex Unknown Allergy Active Results Component Value Reference Range Notes HEMOGLOBIN A1C (GLYCOHEMOGLO BIN) Reviewed date:06/07/2024 01:07:03 PM Interpretation: Performing Lab: Notes/Report: HEMOGLOBIN A1C % (HH) 7.2 Reason For Referral No Information Medications Medication SIG (Take, Route, Frequency, Duration) Notes Start Date End Date Status metFORMIN HCl 1000 MG Orally Active Extra Depth Orthopedic Shoes (1 Pair) with Customized Heat Molded Multidensity Innersoles (3 Pair) as directed Dx: NIDDM/Polyneuropathy (E11.42), Hammertoe Foot Deformity (M20.41,M20.42), Preulcerative Skin Lesion(s) (L85.1 03/08/2024 Active Omeprazole 20 MG Orally Act danielle ASA 81 mg Not-Taking Lantus 60Unit Active Vitamin D 1000 UNIT Orally Active hydroCHLOROthiazide 12.5 MG Orally Active Calcium + D3 Active Vitamin C Active Cetirizine HCl Activ e Citalopram Hydrobromide 20 MG Orally Active Lisinopril 20 MG Orally Act danielle Immunizations Vaccine Route Administration Date Status Comme nts Influenza Unknown 12/26/2016 Administered Influenza Unknown 06/15/2022 Administered Social History Tobacco Use: Social History Observation Description Date Details (start date - stop date) Never Smoker NA - NA Tobacco use other than smoking: Question Answer Notes Are you an other tobacco user? No Tobacco Control (Standard) Question Answer Notes Tobacco use: Nonsmoker AUDIT-C (Standard) Question Answer Notes Did you have a drink containing alcohol in the p ast year? No Points 0 Interpretation Negative Problems Problem Type SNOMED Code ICD Code Onset Dates Problem Status W/U Status Risk Notes Problem Acquired hammer toe of right foot (2214797942182741 ) Other hammer toe(s) (acquired), right foot (M20.41) Active confirmed Response to treatment, Improvemen t Problem Acquired hammer toe of left foot (3313078141098837 ) Other hammer toe(s) (acquired), left foot (M20.42) Active confirmed Response to treatment, Improvemen t Problem Polyneuropathy due to type 2 diabetes mellitus (547710955) Type 2 diabetes mellitus 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) Active confirmed Vital Signs Blood pressure diastolic 80 mm Hg 06/07/2024 Height 5ft 7in in 06/07/2024 Blood pressure systolic 123 mm Hg 06/07/2024 Weight 250 lbs 06/07/2024 BMI 39.15 kg/m2 06/07/2024 Procedures Procedure Date Ordered Date Performed Result Body Sit e 59856-QOGGLDQ NAIL, 1-5 03/08/2024 N/A 29454-VCAV SKIN LESIONS, OVER 4 03/08/2024 N/A P2622-WYFSDSQC DYSTROPHIC NAILS ANY # 03/08/2024 N/A 91399-JNPHXVI NAIL, 1-5 06/07/2024 N/A 95865-YKNK SKIN LESIONS, OVER 4 06/07/2024 N/A C3730-KOFQNUEK DYSTROPHIC NAILS ANY # 06/07/2024 N/A Encounters Encounter Location Date Provider Diagnosis [facility] [address] [place] [address] 03/08/2024 Yrn Bill Type 2 diabetes mellitus with diabetic polyneuropathy E11.42 ; Tinea unguium B35.1 ; Other hammer toe(s) (acquired), right foot M20.41 and Other hammer toe(s) (acquired), left foot M20.[address] [address] 06/07/2024 Yrn Bill Type 2 diabetes mellitus with diabetic polyneuropathy E11.42 ; Tinea unguium B35.1 ; Other hammer toe(s) (acquired), right foot M20.41 and Other hammer toe(s) (acquired), left foot M20.[address] [address] 01/08/2024 Neha Horne Assessments Encounter Date Diagnosis (ICD Code) Assessment Notes Treatment Notes Treatment Clinical Notes Section Notes 03/08/2024 Tinea unguium (ICD-10 - B35.1) 03/08/2024 Type 2 diabetes mellitus with diabetic polyneuropathy (ICD-10 - E11.42) 06/07/2024 Tinea unguium (ICD-10 - B35.1) 06/07/2024 Type 2 diabetes mellitus with diabetic polyneuropathy (ICD-10 - E11.42) 03/08/2024 Other hammer toe(s) (acquired), right foot (ICD-10 - M20.41) Patient Educated with: DIABETIC FOOT CARE INSTRUCTIONS. pdf (DIABETIC FOOT CARE INSTRUCTIONS. pdf) 06/07/2024 Other hammer toe(s) (acquired), right foot (ICD-10 - M20.41) Response to treatment,Impro vement 06/07/2024 Other hammer toe(s) (acquired), left foot (ICD-10 - M20.42) Response to treatment,Impro vement 03/08/2024 Other hammer toe(s) (acquired), left foot (ICD-10 - M20.42) Plan Of Treatment Pending Test Test Name Order Date X ray : Foot, left 3V 12/23/2022 X ray : Foot, right 3V 12/23/2022 18849-USPQCAF NAIL, 1-5 03/08/2024 03736-HTEDCUD NAIL, 1-5 06/07/2024 32262-IUUX SKIN LESIONS, OVER 4 06/07/19 49992-EJLL SKIN LESIONS, OVER 4 03/08/20 Y4552-RPLSGCYF DYSTROPHIC NAILS ANY # V7975-APTKHNLT DYSTROPHIC NAILS ANY # Next Appt Details Provider Name:Yrn Bill , 09/10/2024 01:45:00 PM, [address] [place], [address], Insurance Providers Payer Name Payer Address Payer Phone Subscriber Number Group Number Insured Name Patient Relationship to Insured Coverage Start Date Coverage End Date [employer] 65 Medicare [address] [place] [address] [id number] Janna Iyer Self - patient is the insured Medical (General) History Medical History History ICD Code Arthritis CAD (Cholesterol) Depression type II diabetes High blood pressure keloids Reflux ( GERD) Vascular phlebitis (clots) Measles Mumps Chicken pox Bone implants/screws Transfusions Surgical History Surgery Date(Month/Year) TK R+ R 10.4 02/09/16 TK R+ R 9. 03 06/02/2016
--- OUTSIDE RECORDS SUMMARY | 2024-06-11 12:17 | XMS_ITS ---
Author Organization [facility] Address [address] [place] [address] Care Team Providers Care Pathology Secretary Name Role Phone Jabier Russell Primary Care Provider Neha Roach Unavailable [phone] Yrn Bill Unavailable [phone] Allergies Allergen (clinical drug ingredient) Drug/Non Drug [...] Polyneuropathy due to type 2 diabetes mellitus (694562089) Type 2 diabetes mellitus 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) Active confirmed Problem Acquired hammer toe of right foot (9267337282145248 ) Other hammer toe(s) (acquired), right foot (M20.41) Active confirmed Response to treatment, Improvemen t Problem Acquired hammer toe of left foot (4545566951946553 ) Other hammer toe(s) (acquired), left foot (M20.42) Active confirmed Response to treatment, Improvemen t Vital Signs Height 5ft 7in in 03/08/2024 Weight 250 lbs 03/08/2024 BMI 39.15 kg/m2 03/08/2024 Blood pressure systolic 123 mm Hg 03/08/20 24 Blood pressure diastolic 70 mm Hg 024 Procedures Procedure Date Ordered Date Performed Result Body Sit e 75906-BBVJVAV NAIL, 1-5 03/08/2024 N/A 47264-SOBU SKIN LESIONS, OVER 4 03/08/2024 N/A A7395-LFQGOERZ DYSTROPHIC NAILS ANY # 03/08/2024 N/A Encounters Encounter Location Date Provider Diagnosis [facility] [place] [address] [place] [address] 03/08/2024 Yrn Bill Type 2 diabetes mellitus [...] INSTRUCTIONS.pdf) Pending Test Test Name Order Date 91933-TQGCZAO NAIL, 1-5 03/08/2024 23917-NQDU SKIN LESIONS, OVER 4 03/08/20 24 J4360-SLEIHCNT DYSTROPHIC NAILS ANY # Next Appt Details Follow Up: prn, Reason: Provider Name:Yrn Bill , 09/10/2024 01:45:00 PM, [address] [place] [address], [phone], Procedure Notes * Category Sub-Category Detail Notes Keratoma Treatment Parring or Cutting o f Benign Hyperkeratotic Lesion(s) (-57) More than 4 Lesions - The Benign hyperkeratotic lesions, as described above were pared, and/or cut utilizing a sterile 15 blade, tissue nippers, and/or dremel - 69355 Debride Nails 1-5 Procedure: Performance of this nail treatment by a nonprofessional would put this patients foot and overall health at risk. Therefore, nail debridement was performed extensively to reduce/remove overall nail length, girth, thickness, subungual debris, and necrotic tissue, by manual and/or electrical means through the use of a nail nipper and/or dremel-type contour grinder, to a more viable healthy nail plate or bed tissue 1-5. Silver nitrate used for any petechial bleeding as necessary. Definitive antifungal treatment options have been reviewed and discussed with the patient. The patient chooses, no pharmaceutical tx - 6[address]08 Nail Reduction Nail Reduction (-27) Trimming o f dystrophic nails performed to reduce/remove overall nail length and girth, by manual and electrical means with use of a nail nipper and/or dremel, to more viable healthy nail plate or bed tissue, any number - G0127 Progress Notes * Janna IYERDOB:[birth year] (68 yo F)Acc No.[id number]:03/08/2024 Progress Note Patient:?Janna IYER Provider:?Yrn Bill DPM :1955???Age:68 Y???Sex:Female D ate:03/08/2024 Address:[address] [place] [address], [place], [id number] Pcp:Jabier Russell Subjective: * Chief Complaints: * [...] ?Exercise: yes, Daily. ?Marital status: single. 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 * Medications:?TakingOmeprazol e 20 MG Capsule Delayed [...] Ht-cm: 170.18 cm, Wt-k.4 kg. * Examination: ???Ophthalmology Referral: ?DIABETES EYE EXAM?Neurological: ?SENSORY:?Neurological exam demonstrates, reduced light touch sensation, [...] , Leg(s) , Ankle(s) , Foot , B/L.?General Examination: ?GENERAL APPEARANCE:?Reveals a pleasant, alert, well [...] use of a nail nipper and/or dremel-type contour grinder, to a more viable healthy nail plate or bed tissue 1-5. Silver nitrate used for any petechial bleeding as necessary. Definitive antifungal treatment options have been reviewed and discussed with the patient. The patient chooses, no pharmaceutical tx - 83711.?Keratoma Treatment:?Parring or Cutting of Benign Hyperkeratotic Lesion(s)?(-57) More than 4 Lesions - The Benign hyperkeratotic lesions, as described above were pared, and/or cut utilizing a sterile 15 blade, tissue nippers, and/or dremel - 61804.?Nail Reduction:?Nail Reduction?(-27) Trimming of dystrophic nails performed to reduce/remove overall nail length and girth, by manual and electrical means with use of a nail nipper and/or dremel, to more viable healthy nail plate or bed tissue, any number - G0127.? * Procedure Codes:?G0127 ESTELA ING DYSTROPHIC NAILS ANY #, Modifiers: XS 60424 DEBRIDE NAIL, 1-5, Modifiers: XS 06951 TRIM SKIN LESIONS, OVER 4, Modifiers: XS [...] custom heat-molded inserts was dispensed.? ??Screening/Special Tests:?Fall Risk?Screening:?No falls in the past year ?FALLS: Screening for Future Fall Risk?Have you had any falls with injury in the past year??No * Follow Up:?prn * Images: * Sign off status: Completed true * Provider:?Yrn Bill DPM Date:?2023 Generated for Isamar brand/Benjamin/Zofia on:?06/11/2024 12:16 PM EST History and Physical Notes * [...]
--- OUTSIDE RECORDS SUMMARY | 2024-06-11 12:17 | XMS_ITS ---
Author Organization [facility] Address [address] [place] [address] Care Team Providers Care Camp Manager Name Role Phone Jabier Russell Primary Care Provider UnavailNeha Tidwell Unavailable [phone] Yrn Bill Unavailable [phone] Encounters Encounter Location Date Provider Diagnosis [address] [address] 01/09/2024 Yrn Bill Plan Of Treatment Next Appt Details Provider Name:Yrn Bill , 09/10/2024 01:45:00 PM, [address] [place] [address], [phone], Progress Notes * SHIREEN, Janna MoniqueDOB:[birth year] (68 yo F)Acc No.[id number]:01/09/2024 Progress Note Patient:?Janna IYER Provider:?Yrn Bill DPM :1955???Age:68 Y???Sex:Female D ate:01/09/2024 Address:[address] [place], [place] [id number] Pcp:Jabier Russell Subjective: * Chief Complaints: * [...] DPM Date:?2023 Generated for Isamar brand/Benjamin/Zofia on:?06/11/2024 12:17 PM EST
--- OUTSIDE RECORDS SUMMARY | 2024-06-11 12:17 | XMS_ITS ---
[facility] Address [address] [place] [address] Care Team Providers Care Supervisor Vat [facility] Name Role Phone Jabier Russell Primary Care Provider Neha Roach Unavailable [phone] Yrn Bill Unavailable [phone] Allergies Allergen (clinical drug ingredient) Drug/Non Drug Allergy documented on EMR Reaction Allergy Type Onset Date Status medroxyprogesterone Provera Unknown Drug Allergy Active Latex Latex Unknown Allergy Active REASON FOR VISIT At Risk Footcare, Toe Irritation Medications Medication SIG (Take, Route, Frequency, Duration) Notes Start Date End Date Status hydroCHLOROthiazide 12.5 MG Orally Active Calcium + D3 Active Vitamin C Active Cetirizine HCl Activ e Lisinopril 20 MG Orally Act danielle metFORMIN HCl 1000 MG Orally Active Omeprazole 20 MG Orally Act danielle Lantus 60Unit Active Vitamin D 1000 UNIT Orally Active Citalopram Hydrobromide 20 MG Orally Active Extra Depth Orthopedic Shoes (1 Pair) with Customized Heat Molded Multidensity Innersoles (3 Pair) as directed Dx: NIDDM/Polyneuropathy (E11.42), Hammertoe Foot Deformity (M20.41,M20.42), Preulcerative Skin Lesion(s) (L85.1 03/08/2024 Active ASA 81 mg Not-Taking Social History Tobacco Use: Social History Observation [...] ast year? No Points 0 Interpretation Negative Vital Signs Height 5ft 7in in 06/07/2024 Weight 250 lbs 06/07/2024 BMI 39.15 kg/m2 06/07/2024 Blood pressure systolic 123 mm Hg 06/07/19 25 Blood pressure diastolic 80 mm Hg 025 Procedures Procedure Date Ordered Date Performed Result Body Sit e 21629-[id number] NAIL, 1-5 06/07/2024 N/A 30601-ZHUW SKIN LESIONS, OVER 4 06/07/2024 N/A [id number] DYSTROPHIC NAILS ANY # 06/07/2024 N/A Encounters Encounter Location Date Provider Diagnosis [facility] [address] [address] 06/07/2024 Yrn Bill Type 2 diabetes mellitus with diabetic polyneuropathy E11.42 ; Tinea unguium B35.1 ; Other hammer toe(s) (acquired), right foot M20.41 and Other hammer toe(s) (acquired), left foot M20.42 Assessments Encounter Date Diagnosis (ICD Code) Assessment Notes Treatment Notes Treatment Clinical Notes Section Notes 06/07/2024 Type 2 diabetes mellitus with diabetic polyneuropathy (ICD-10 - E11.42) 06/07/2024 Tinea unguium (ICD-10 - B35.1) 06/07/2024 Other hammer toe(s) (acquired), right foot (ICD-10 - M20.41) Response to treatment,Impro vement 06/07/2024 Other hammer toe(s) (acquired), left foot (ICD-10 - M20.42) Response to treatment,Impro vement Plan Of Treatment Pending Test Test Name Order Date [id number] NAIL, 1-5 06/07/2024 [id number]-[id number] SKIN LESIONS, OVER 4 06/07/19 25 [id number]-IWWNVEGY DYSTROPHIC NAILS ANY # Next Appt Details Follow Up: prn, Reason: Provider Name:Yrn Bill , 09/10/2024 01:45:00 PM, [address] [place] [address], [phone], Procedure Notes * Category Sub-Category Detail Notes Keratoma Treatment Parring or Cutting o f Benign Hyperkeratotic Lesion(s) (-57) More than 4 Lesions - Due to the at risk nature of the patients medical condition as documented in the exam findings, performance of this keratoderma treatment is medically necessary as its management by an unskilled/untrained nonprofessional would put this patients foot and overall health at risk. Therefore, the benign hyperkeratotic lesions, ( 6 ) in total, locations as stated and described in the exam ( Medial , IPJ , TA , Medial , IPJ , T5 , SUB MTH (s) , 1 , B/L , Plantar, Heel(s) , B/L ), were pared, and/or cut utilizing a sterile 15 blade, tissue nippers, and/or power dremel instrumentation by the physician of record - [id number] Debride Nails 1-5 Procedure: Due to the cli nical pathology outlined in the exam findings, performance of this nail treatment is medically necessary as its management by an unskilled/untrained nonprofessional would put this patients foot and overall health at risk. Therefore, debridement to affected nail(s), as described in exam ( TA , T5 ), was performed exclusively by the physician of record to reduce/remove overall nail length, girth, thickness, subungual debris, and necrotic tissue, by manual and/or electrical means through the use of a nail nipper and/or dremel stylegrinder, to a more viable healthy nail plate or bed tissue 5 nails or fewer in number. Silver nitrate was used for any petechial bleeding as necessary. Definitive antifungal treatment options, both pharmaceutical and surgical, have been reviewed and discussed with the patient. The patient solely prefers the use of intermittent/as needed professional debridement services for their nail condition and understands that additional periodic treatments may be required as necessary to maintain effective symptomatic relief - 45878 Nail Reduction Nail Reduction (-27) Trimming o f all dystrophic nails - Due to the at risk nature of the patients medical condition as documented in the exam findings, performance of this nail treatment is medically necessary as its management by an unskilled/untrained nonprofessional would put this patients foot and overall health at risk. Therefore, the dystrophic nails, in locations as stated and described in the exam ( T1, T2, T3, T4, T6, T7, T8, T9 ), were debrided by the phisician of record to reduce/remove overall nail length and girth, by manual and electrical means with use of a nail nipper and/or dremel, to more viable healthy nail plate or bed tissue - G0127 Progress Notes * Janna IYERDOB:[birth year] (68 yo F)Acc No.[id number]:06/07/2024 Progress Note Patient:?Janna IYER Provider:?Yrn Bill DPM :1955???Age:68 Y???Sex:Female D ate:06/07/2024 Address:[address] [place] [address], [facility] [id number] Pcp:Jabier Russell Subjective: * Chief Complaints: * ???At Risk FootcareToe Irrit ation * HPI: ???At Risk footcare:?Pt States Last PCP Visit:?Date?03/29/2024 ???Toe pain:?Treatments:?Rx shoes .? * ROS:?General/Constitutional:?Nausea?denies.?Vomiting?denies.?Hunger Thirst?denies.?Loss appetite?denies.?Chills?denies.?Fatigue?denies.?Fever?denies.?Night Sweats?denies.?Unexplained weight loss?denies.?Unexplained [...] * Family History:?Mother: dece ased, diagnosed with Other malignant neoplasm of unspecified site, Unspecified essential hypertension, Unspecified heart disease, Family history of arthritis.?Father: alive, diagnosed with Unspecified heart disease.?Siblings: unknown, depression, diagnosed with Other malignant neoplasm of unspecified site, Unspecified essential hypertension, Family history of arthritis.? * Social History:?Tobacco Use:?Tobacco use other than smoking?Are you an other tobacco user??No ?Tobacco Control (Standard)?Tobacco use:?Nonsmoker ???Drugs/Alcohol:?Drugs?Have you used drugs other than those for medical reasons in the past 12 months??No ???Drug/Alcohol:?AUDIT-C (Standard)?Did you have a drink containing alcohol in the past year??No ?Points?0 ?Interpretation?Negative * Medications:?TakingOmeprazol e 20 MG Capsule Delayed Release Orally Lantus 60Unit Vitamin D 1000 UNIT Tablet Orally metFORMIN HCl 1000 MG Tablet Orally Citalopram Hydrobromide 20 MG Tablet Orally Lisinopril 20 MG Tablet Orally hydroCHLOROthiazide 12.5 MG Tablet Orally Calcium + D3 Vitamin C Cetirizine HCl Extra Depth Orthopedic Shoes (1 Pair) with Customized Heat Molded Multidensity Innersoles (3 Pair) as directed Dx: NIDDM/Polyneuropathy (E11.42), Hammertoe Foot Deformity (M20.41,M20.42), Preulcerative Skin Lesion(s) (L85.1 Taking Omeprazole 20 MG Capsule Delayed Release Orally Taking Lantus 60Unit Taking Vitamin D 1000 UNIT Tablet Orally Taking metFORMIN HCl 1000 MG Tablet Orally Taking Citalopram Hydrobromide 20 MG Tablet Orally Taking Lisinopril 20 MG Tablet Orally Taking hydroCHLOROthiazide 12.5 MG Tablet Orally Taking Calcium + D3 Taking Vitamin C Taking Cetirizine HCl Taking Extra Depth Orthopedic Shoes (1 Pair) with Customized Heat Molded Multidensity Innersoles (3 Pair) as directed Dx: NIDDM/Polyneuropathy (E11.42), Hammertoe Foot Deformity (M20.41,M20.42), Preulcerative Skin Lesion(s) (L85.1 Not-Taking/PRNASA 81 mg Medication List reviewed and reconciled with the patientNot-Taking/PRN ASA 81 mg Medication List reviewed and reconciled with the patient * Allergies:?ProveraLatex: All ergyyes[Allergies Verified] Objective: * Vitals:?Ht:5ft 7in, Wt:250, BMI:39.15, Shoe size:11W, BP:123/80mm Hg, BS:82, Ht- cm: 170.18 cm, Wt-k.4 kg. * ???Past Orders: ???Lab:HEMOGLOBIN A1C (GLYCO HEMOGLOBIN) (Order Date - 03/15/2024) (Collection Date & Time - 04/15/2024 01:06 PM) ? Value Reference Range ?HEMOGLOBIN A1C % (HH) 7.2 * Examination: ???Ophthalmology Referral: ?DIABETES EYE EXAM?Neurological: ?SENSORY:?Neurological exam demonstrates, reduced light touch sensation, reduced sharp/dull discrimination , reduced vibration sensation, in a stocking fashion, B/L, 5.07 monofilament test performed at plantar aspects of 5 varied sites per foot shows sensation, reduced, B/L.?Nails: ?NAILS are:?Elongated, overgrown, dystrophic, lytic, greater than 3mm thick, discolored and friable with crumbly malodorous subungual debris , TA , T5, all other nails not described with characteristics as possessing mycosis are elongated, overgrown, and dystrophic ( T1, T2, T3, T4, T6, T7, T8, T9?).?Dermatologic: ?SKIN FINDINGS:?Skin exam reveals Keratotic lesion(s) located at , Medial , IPJ , TA , Medial , IPJ , T5 , SUB MTH (s) , 1 , B/L , Plantar, Heel(s) , B/L.?Orthopedic: ?DIGITAL DEFORMITIES:?Digital contracture, PIPJ, 2-5 B/L, incompl-reducible to push-up test, no over, nor underlapping, there is no longer, evidence of shoe producing skin irritation.?FOOTWEAR:?good condition, exhibit proper fit and accommodation for pedal deformities. OT were inspected and noted to be worn, but in good condition giving proper support at the present time.?General Examination: ?GENERAL APPEARANCE:?Reveals a pleasant, alert, well [...] (acquired), right foot - M20.41???Specify :Chronic problem, Stable (1=3,2=4)???Notes :Response to treatment,Improvement???4.?Other hammer toe(s) (acquired), left foot - M20.42???Specify :Chronic problem, Stable (1=3,2=4)???Notes :Response to treatment,Improvement??? Plan: * Treatment: * Procedures:?Debride Nails 1-5:?Procedure:?Due to the clinical pathology outlined in the exam findings, performance of this nail treatment is medically necessary as its management by an unskilled/untrained nonprofessional would put this patients foot and overall health at risk. Therefore, debridement to affected nail(s), as described in exam (?TA?,?T5?), was performed exclusively by the physician of record to reduce/remove overall nail length, girth, thickness, subungual debris, and necrotic tissue, by manual and/or electrical means through the use of a nail nipper and/or dremel stylegrinder, to a more viable healthy nail plate or bed tissue 5 nails or fewer in number. Silver nitrate was used for any petechial bleeding as necessary. Definitive antifungal treatment options, both pharmaceutical and surgical, have been reviewed and discussed with the patient. The patient solely prefers the use of intermittent/as needed professional debridement services for their nail condition and understands that additional periodic treatments may be required as necessary to maintain effective symptomatic relief - 44698.?Keratoma Treatment:?Parring or Cutting of Benign Hyperkeratotic Lesion(s)?(-57) More than 4 Lesions - Due to the at risk nature of the patients medical condition as documented in the exam findings, performance of this keratoderma treatment is medically necessary as its management by an unskilled/untrained nonprofessional would put this patients foot and overall health at risk. Therefore, the benign hyperkeratotic lesions, ( 6 ) in total, locations as stated and described in the exam (?Medial?,?IPJ?,?TA?,?Medial?,?IPJ?,?T5?,?SUB MTH (s)?,?1?,?B/L?,?Plantar,?Heel(s)?,?B/L?), were pared, and/or cut utilizing a sterile 15 blade, tissue nippers, and/or power dremel instrumentation by the physician of record - [id number].?Nail Reduction:?Nail Reduction?(-27) Trimming of all dystrophic nails - Due to the at risk nature of the patients medical condition as documented in the exam findings, performance of this nail treatment is medically necessary as its management by an unskilled/untrained nonprofessional would put this patients foot and overall health at risk. Therefore, the dystrophic nails, in locations as stated and described in the exam (?T1, T2, T3, T4, T6, T7, T8, T9?), were debrided by the phisician of manuel to reduce/remove overall nail length and girth, by manual and electrical means with use of a nail nipper and/or dremel, to more viable healthy nail plate or bed tissue - G0127.? * Procedure Codes:?G0127 ESTELA ING DYSTROPHIC NAILS ANY #, Modifiers: XS 51306 DEBRIDE NAIL, 1-5, Modifiers: XS 31141 TRIM SKIN LESIONS, OVER 4, Modifiers: XS * Preventive Medicine:? ??Counseling:?Discussion:?-13: Office or other outpatient visit for the evaluation and management of an established patient, which required a medically appropriate history and/or examination and LOW level of DECISION MAKING for: 1 STABLE ACUTE UNCOMPLICATED PROBLEM, 2 OR MORE MINOR PROBLEMS, OR 1 STABLE CHRONIC PROBLEM, THAT POSE(S) A LOW RISK FOR MORBIDITY/MORTALITY. The visit on the day of the [...] have encouraged the patient to call the office.?Shoe Gear Counseling:?A thorough inspection of the patients Rxed shoegear and inserts was performed and findings communicated. We reviewed the many important medical advantages for adhering to regularly wearing these shoe and insert accomidative devices daily as well as reviewed the fact that a failure in accepting these recommedations may be deleterious, unable to prevent, and disadvantagely result in, many pedal complications such as skin irritation, skin ulceration, infection, and even loss of toe/foot/leg/or even their life. Time was also spent reviewing the proper footcare techniques including daily skin moisturization, daily foot inspection for any interruption in skin integrity, open lesions, or sign of infection such as redness/malodor/drainage/swelling as well as daily shoe inspection for the presence of internal foreign bodies and shoe as well as insert wear. Patient questions re: shoes, inserts, and self foot inspections were answered to their satisfaction as the patient verbally confirmed a full understanding of the above information.? ??Screening/Special Tests:?Fall Risk?Screening:?No falls in the past year ?FALLS: Screening for Future Fall Risk?Have you had any falls with injury in the past year??No * Follow Up:?prn * Images: * Sign off status: Completed true * Provider:?Yrn Bill DPM Date:?2024 Generated for Isamar brand/Benjamin/Zofia on:?06/11/2024 12:17 PM EST History and Physical Notes * HPI (History of Present Illness) Category Sub-Category Detail Notes Category Not es Toe pain Treatments: Rx shoes At Risk footcare Pt States Last [...] MTH (s) , 1 , B/L , Plantar, Heel(s) , B/L Orthopedic FOOTWEAR: good condition, exhibit proper fit and accommodation for pedal deformities. OT were inspected and noted to be worn, but in good condition giving proper support at the present time DIGITAL DEFORMITIES: Digital contracture , PIPJ, 2-5 B/L, incompl-reducible to push-up test, no over, nor underlapping, there is no longer, evidence of shoe producing skin irritation General Examination GENERAL APPEARANCE: Reveals a pleasant, alert, well nourished, well-developed, well hydrated individual, who demonstrates proper attention to hygiene/body habitus, and is in no acute distress, Pt serves as own historian for office visit today FOOT EXAM: Lower Extremity Neurological Exa m performed:: Yes Visual exam of foot performed:: Yes Date: 06/07/2024 ORIENTED: person, place, and t adriana Footwear Evaluation Footwear Evaluation performe d:: Yes Ophthalmology Referral DIABETES EYE EXAM Procedure Perform ed:: Yes ?Date of Exam Performed: 01/29/2024 Stat es next appt - September 2024 Diabetic Retinopathy Screening:: Yes Findings of Diabetic Eye Exam:: no retin opathy Nails NAILS are: Elongated, overg rown, dystrophic, lytic, greater than 3mm thick, discolored and friable with crumbly malodorous subungual debris , TA , T5, all other nails not described with characteristics as possessing mycosis are elongated, overgrown, and dystrophic ( T1, T2, T3, T4, T6, T7, T8, T9 )
== END 2024-06-11 11:38 | disposition home or self-care (01) ==
PROVIDERS: PCP Internal Medicine; Visit Provider Nurse Practitioner Adult Health
DX: E11.9 Type 2 diabetes mellitus without complications (principal)
CPT/HCPCS: 99214; G2211

== ENCOUNTER → 2024-06-11 11:01 | Outpatient (BNVA) | payer MEDICARE, SELFPAY | PROVIDERS: PCP Internal Medicine; Visit Provider Nurse Practitioner Adult Health | DX: E11.9 Type 2 diabetes mellitus without complications (principal); Z79.4 Long term (current) use of insulin; Z79.84 Long term (current) use of oral hypoglycemic drugs | CPT/HCPCS: 82947; 99212 ==

== ENCOUNTER 2024-06-25 09:32 | Day surgery (SDC) | payer MEDICARE, SELFPAY ==
--- NOTE | 2024-06-24 09:48 | P.CONAN_ITS ---
Documented by User: Louise Hancock NP 06/24/24 09:51 HPI - Anesthesia Eval Consult details Narrative: 68yo F for Colonoscopy Follows [facility] [place] Heme for hx DVT/PE - on eliquis Anesthesia Pre-Procedure Meds Is the patient on any of the following meds?: GLP1/DPP4 PMFSH Active Problems Active Problems: All Active Problems Type 2 diabetes mellitus (Acute) Urinary incontinence, mixed (Acute) DVT femoral (deep venous thrombosis) with thrombophlebitis (Acute) Fatty liver determined by biopsy (Acute) Urgency incontinence (Acute) Encounter for well woman exam with routine gynecological exam (Acute) Pre-op examination (Acute) Impacted cerumen (Acute) Fatty liver (Acute) Numbness of left hand (Acute) Mixed incontinence (Acute) Hypersomnia (Acute) Annual physical exam (Acute) Age-related osteoporosis without current pathological fracture (Acute) Colon cancer screening (Acute) Asthma (Acute) Generalized anxiety disorder (Acute) Left leg DVT (Acute) Hypertension, essential (Acute) Recurrent deep vein thrombosis (DVT) (Acute) Morbid obesity (Acute) Chronic kidney disease, stage 2 (mild) (Acute) Vitamin D deficiency (Acute) Varicose veins of both lower extremities (Acute) Diabetic nephropathy (Acute) Chronic GERD (Acute) Long-term insulin use (Acute) Current use of anticoagulant therapy (Acute) Past Medical History Medical History Type 2 diabetes mellitus Fatty liver determined by biopsy Urgency incontinence Fatty liver Anxiety and depression Shoulder pain, bilateral Environmental allergies LLL pneumonia Encounter for annual routine gynecological examination Contusion of foot Long-term insulin use Family History Family History Father Type 2 diabetes mellitus Polymyalgia Mother Cancer of thyroid Sister Breast cancer Sister Leukemia Brother Diabetes mellitus HTN (hypertension) High cholesterol Surgical History Surgical History History of revision of total replacement of right knee joint History of colonoscopy History of total left knee replacement (TKR) History of total right knee replacement (TKR) History of breast biopsy History of tonsillectomy Social History Social History Household Members: None Housing: House Are you a primary resident care manager to a significant other at home: No Do you presently have visiting nurse or other home services: No Alcohol intake: former Patient Tobacco Use Status: Former Tobacco user Tobacco use type: Cigarette Years Smoked: stopped 1984 e-Cigarette/Vaping Use: Never Used Have you been hit, kicked, punched, or otherwise hurt by someone within the past year? If so, by whom?: No Are you DNR?: No Advance Directives: No Advance Directives Information Provided: Yes Advance Directives Date on File: 03/05/20 Recently lost weight without trying: No Nutrition Risks: No Nutritional Risk service: No Current occupational status: employed Cognitive needs: No Hearing needs: No Vision needs: Yes Meds Allergies Allergy/AdvReac Type Severity Reaction Status Date / Time medroxyprogesterone [Provera] Allergy Intermediate SKIN Verified 06/25/24 10:15 PEELING niacin Allergy Intermediate facial Verified 06/25/24 10:15 [From NIASPAN flushing EXTENDED-RELEASE] atorvastatin [From Lipitor] Allergy Mild MUSCLE Verified 06/25/24 10:15 ACHES, myalgia gemfibrozil [From Lopid] Allergy Mild MUSCLE Verified 06/25/24 10:15 ACHES fluconazole [From DIFLUCAN] Allergy Unknown PER H&P Verified 06/25/24 10:15 empagliflozin AdvReac Mild urinary Verified 06/25/24 10:15 [From Jardiance] incontinence nitroglycerin AdvReac Mild LOW BLOOD Verified 06/25/24 10:15 [From Nitro-Dur] PRESSURE ozempic AdvReac Intermediate Headache Uncoded 06/25/24 10:15 Home Medications ?Medication ?Instructions ?Recorded ?Confirmed ?Last Taken ?Type vitamin B complex 1 tab PO DAILY 01/25/24 06/25/24 Unknown History calcium carbonate-vitamin D3 600 mg PO DAILY 02/28/24 06/25/24 Unknown History [Calcium 600 + D(3)] insulin glargine 100 unit/mL (3 54 unit subcut BID 06/11/24 06/25/24 Unknown History mL) subcutaneous pen (Lantus Solostar U-100 Insulin) apixaban 5 mg tablet (Eliquis) 5 mg PO BID 06/24/24 06/25/24 Unknown History warfarin 10 mg tablet 10 mg PO DAILY 06/24/24 06/25/24 Unknown History Exam Pertinent Lab Results Pertinent Lab Results: Laboratory Tests 04/26/24 12:09 WBC 6.0 Hgb 14.4 Hct 43.9 Plt Count 202 Sodium 141 Potassium 4.3 Chloride 108 Carbon Dioxide 29 BUN 21 H Creatinine 0.97 Narrative Narrative: EKG 2023 Vent. Rate : 077 BPM Atrial Rate : 077 BPM P-R Int : 156 ms QRS Dur : 082 ms QT Int : 374 ms P-R-T Axes : 041 052 043 degrees QTc Int : 423 ms Normal sinus rhythm Normal ECG When compared with ECG of 23-JUN-2018 11:02, No significant change was found Assessment and Plan Assessment Anesthesia Assessment: Chart Reviewed Documented by User: Amee Ocampo MD 06/25/24 10:29 [facility] Active Problems Active Problems: @All Active Problems Type 2 diabetes mellitus (Acute) Urinary incontinence, mixed (Acute) DVT femoral (deep venous thrombosis) with thrombophlebitis (Acute) Fatty liver determined by biopsy (Acute) Urgency incontinence (Acute) Encounter for well woman exam with routine gynecological exam (Acute) Pre-op examination (Acute) Impacted cerumen (Acute) Fatty liver (Acute) Numbness of left hand (Acute) Mixed incontinence (Acute) Hypersomnia (Acute) Annual physical exam (Acute) Age-related osteoporosis without current pathological fracture (Acute) Colon cancer screening (Acute) Asthma (Acute) Generalized anxiety disorder (Acute) Left leg DVT (Acute) Hypertension, essential (Acute) Recurrent deep vein thrombosis (DVT) (Acute) Morbid obesity (Acute) Chronic kidney disease, stage 2 (mild) (Acute) Vitamin D deficiency (Acute) Varicose veins of both lower extremities (Acute) Diabetic nephropathy (Acute) Chronic GERD (Acute) Long-term insulin use (Acute) Current use of anticoagulant therapy (Acute) Past Medical History Medical History Type 2 diabetes mellitus Fatty liver determined by biopsy Urgency incontinence Fatty liver Anxiety and depression Shoulder pain, bilateral Environmental allergies LLL pneumonia Encounter for annual routine gynecological examination Contusion of foot Long-term insulin use Family History Family History Father Type 2 diabetes mellitus Polymyalgia Mother Cancer of thyroid Sister Breast cancer Sister Leukemia Brother Diabetes mellitus HTN (hypertension) High cholesterol Surgical History Surgical History History of revision of total replacement of right knee joint History of colonoscopy History of total left knee replacement (TKR) History of total right knee replacement (TKR) History of breast biopsy History of tonsillectomy History of Problems with Anesthesia: No Social History Social History Household Members: None Housing: House Are you a primary resident care manager to a significant other at home: No Do you presently have visiting nurse or other home services: No Alcohol intake: former Patient Tobacco Use Status: Former Tobacco user Tobacco use type: Cigarette Years Smoked: stopped 1984 e-Cigarette/Vaping Use: Never Used Have you been hit, kicked, punched, or otherwise hurt by someone within the past year? If so, by whom?: No Are you DNR?: No Advance Directives: No Advance Directives Information Provided: Yes Advance Directives Date on File: 03/05/20 Recently lost weight without trying: No Nutrition Risks: No Nutritional Risk service: No Current occupational status: employed Cognitive needs: No Hearing needs: No Vision needs: Yes Meds Allergies Allergy/AdvReac Type Severity Reaction Status Date / Time medroxyprogesterone [Provera] Allergy Intermediate SKIN Verified 06/25/24 10:15 PEELING niacin Allergy Intermediate facial Verified 06/25/24 10:15 [From NIASPAN flushing EXTENDED-RELEASE] atorvastatin [From Lipitor] Allergy Mild MUSCLE Verified 06/25/24 10:15 ACHES, myalgia gemfibrozil [From Lopid] Allergy Mild MUSCLE Verified 06/25/24 10:15 ACHES fluconazole [From DIFLUCAN] Allergy Unknown PER H&P Verified 06/25/24 10:15 empagliflozin AdvReac Mild urinary Verified 06/25/24 10:15 [From Jardiance] incontinence nitroglycerin AdvReac Mild LOW BLOOD Verified 06/25/24 10:15 [From Nitro-Dur] PRESSURE ozempic AdvReac Intermediate Headache Uncoded 06/25/24 10:15 Home Medications ?Medication ?Instructions ?Recorded ?Confirmed ?Last Taken ?Type vitamin B complex 1 tab PO DAILY 01/25/24 06/25/24 Unknown History calcium carbonate-vitamin D3 600 mg PO DAILY 02/28/24 06/25/24 Unknown History [Calcium 600 + D(3)] insulin glargine 100 unit/mL (3 54 unit subcut BID 06/11/24 06/25/24 Unknown History mL) subcutaneous pen (Lantus Solostar U-100 Insulin) apixaban 5 mg tablet (Eliquis) 5 mg PO BID 06/24/24 06/25/24 Unknown History warfarin 10 mg tablet 10 mg PO DAILY 06/24/24 06/25/24 Unknown History Exam Airway Mallampati Class: III TM Dist: >3cm Neck ROM: Full Partial: Upper and Lower Loose/Missing/Broken Teeth: Yes, Upper and Lower Heart: RRR Lungs: CTA Assessment and Plan Assessment Anesthesia Assessment: Anesthesia Plan Discussed Final Anesthetic Review History of Problems with Anesthesia: No NPO: Yes ASA Class: III Final Preanesthetic Review: Meds/Allgs Chart Reviewed, Consent Obtained/Reviewed and Anes Risks/Benef Reviewed Patient Risk: Intermediate Procedure Risk: Low Anesthetic Plan Anesthetic Plan: MAC: Disposition: Standard PACU
[2024-06-25 10:12] LABS: Glucose, Whole Blood 102 mg/dL (60-115)
[2024-06-25] MEDS: Lactated Ringers 1,000 ML 100 ML IVCONT (10:25)
--- NOTE | 2024-06-25 10:25 | P.HPSUR_ITS ---
Pre-Procedural Eval Section A - 24 Hr Update-Section A only Date of Service: 06/25/24 Section B - Complete if H&P > 30 days Chief Complaint: Encounter for screening for malignant neoplasm of Relevant Family History (Specify if Yes): No Relevant Social History: None Present Medications: see Short Stay Collaborative assessment Medical History: Significant History (Type 2 diabetes mellitus Fatty liver det ermined by biopsy Urgency incontinence Fatty liver Anxiety and depression Shoulder pain, bilateral Environmental allergies LLL pneumonia Encounter for annual routine gynecological examination Contusion of foot Long-term insulin use) History of Previous Operations: Relevant previous surgery/procedure and date(s) ( History of revision of total replacement of right knee joint History of colonoscopy History of total left knee replacement (TKR) History of total right knee replacement (TKR) History of breast biopsy History of tonsillectomy) Allergies: Allergies Allergy/AdvReac Type Severity Reaction Status Date / Time medroxyprogesterone [Provera] Allergy Intermediate SKIN Verified 06/25/24 10:15 PEELING niacin Allergy Intermediate facial Verified 06/25/24 10:15 [From NIASPAN flushing EXTENDED-RELEASE] atorvastatin [From Lipitor] Allergy Mild MUSCLE Verified 06/25/24 10:15 ACHES, myalgia gemfibrozil [From Lopid] Allergy Mild MUSCLE Verified 06/25/24 10:15 ACHES fluconazole [From DIFLUCAN] Allergy Unknown PER H&P Verified 06/25/24 10:15 empagliflozin AdvReac Mild urinary Verified 06/25/24 10:15 [From Jardiance] incontinence nitroglycerin AdvReac Mild LOW BLOOD Verified 06/25/24 10:15 [From Nitro-Dur] PRESSURE ozempic AdvReac Intermediate Headache Uncoded 06/25/24 10:15 Review of Systems Sugical H&P ROS: Negative: Constitution, Cardiovascular, Respiratory, Neurological, Psychiatric, Hem-Onc, Allergic/Immunologic, Gastrointestinal, Genitourinary, Musculoskeletal, Integumentary, Endocrine and Eyes/Ears/Nose/Throat Exam Surgical H&P Exam: Normal: HEENT, Normal: Heart, Normal: Lungs, Normal: Extremities, Normal: Abdomen, Normal: Skin and Normal: Neurological Plan Diagnosis/Plan: Unchanged I have reviewed the history and physical and performed a pertinent physical examination on my patient. No changes have occurred unless specified. Time Spent With Patient Time: Total time managing care of this patient today ____ minutes.
[2024-06-25 10:34] VITALS: BMI 43.5
[2024-06-25 10:36] VITALS: BP 115/57; PULSE 74; RESP 18; TEMP 36.7; O2SAT 95
--- OUTSIDE RECORDS SUMMARY | 2024-06-25 10:40 | XMS_ITS | Clinical Summary ---
Author Organization [facility], Address [address] [place] [address] [place] [address] Phone Care Team Providers Care Magazine Repairer Name Role Phone Ricco Hill MD Primary Care Provider [phone] Allergies Active Allergy Reactions Criticality Noted Date [...] Name Priority Date/Time Associated Diagnosis Comments LAB CLINICAL NURSE SPECIALIST Routine 09/25/2017 12:00 AM EDT from Last 3 Months or Most Recently Relevant to Health Maintenance Results * Lab Licensing Director (09/25/2017 12:00 AM EDT) Carbon Dioxide (CO2) [...] mg/dL KCTMA 09/25/2017 us Kctma Conversion LAB [id number] LICITED RESULTS Final Result KCTMA from Last 3 Months or Most Recently Relevant to Health Maintenance Insurance [employer] Care Teams Magazine Repairer Relationship Specialty Start Date End Date Ricco Hill MD 1959 [facility] [place] [address] PCP - General 03/19/19
--- NOTE | 2024-06-25 11:05 | P.OPN-COLO_ITS ---
Colonoscopy Operative Note Operative Note Date of Service: 06/25/24 Narrative: Operative Information Procedure Description: Colonoscopy Indication: screening Anesthesia: MAC COLONOSCOPY Instrument: Olympus variable stiffness pediatric scope 190L Colonoscopy Monitoring: Vital signs and clinical assessment, continuous EKG monitoring, Pulse oximetry, Carbon Dioxide monitoring and blood pressure monitoring were done throughout the procedure. Colon withdrawal time was 12 minutes. Procedure: The patient was placed in the left lateral decubitis position and pre-procedure medications were administered. After a digital rectal examination of the ano-rectum, the video colonoscope was inserted into the rectum and advanced through the colon to the cecum/TI. The colonoscope was slowly withdrawn in a retrograde panoramic fashion and the colon mucosa was carefully examined including a retroflexed view of the rectum. Findings and interventions are described below. Procedure Difficulty: easy Findings: Terminal Ileum-patchy erythema, bx taken random bx taken from right colon as well Cecum: x 2 sessile polyps 5-8 mm removed with cold forceps Ascending Colon: normal Transverse Colon -normal Descending Colon:normal Sigmoid Colon: mild diverticulosis Rectum: Retroflexion with small internal hemorrhoids seen, grade I Anorectum - normal Intervention: cold forceps Colon preparation: [place] Bowel Preparation Scale Right colon; 2 Transverse colon: 2 Left colon; 2 (0 = Unprepared colon segment with mucosa not seen due to solid stool that cannot be cleared. 1 = Portion of mucosa of the colon segment seen, but other areas of the colon segment not well seen due to staining, residual stool and/or opaque liquid. 2 = Minor amount of residual staining, small fragments of stool and/or opaque liquid, but mucosa of colon segment seen well. 3 = Entire mucosa of colon segment seen well with no residual staining, small fragments of stool or opaque liquid) Impression and Post Procedure Diagnosis: diverticulosis colon polyps internal hemorrhoids Plan: High fiber diet leaflet Avoid straining at stool, epsom salts and sitz bath, anusol supps or cream Repeat Colonoscopy in 5 years if pre cancerous polyps, 10 yrs if non pre cancerous or earlier if clinically indicated Above findings were reviewed with the patient and relevant handouts were provided if indicated.
[2024-06-25 11:08] VITALS: BP 110/71; PULSE 78; RESP 18; TEMP 36.1
[2024-06-25 11:23] VITALS: BP 110/71; PULSE 72; RESP 18; O2SAT 95
== END 2024-06-25 12:52 | disposition home or self-care (01) ==
PROVIDERS: PCP Internal Medicine; Visit Provider Internal Medicine Gastroenterology
PROC: 0DJD8ZZ Inspection of Lower Intestinal Tract, Via Natural or Artificial Opening Endoscopic (ICD-10-PCS; CPT 45378; principal; 2024-06-25 12:30)
DX: Z12.11 Encounter for screening for malignant neoplasm of colon (principal); D12.0 Benign neoplasm of cecum; K52.9 Noninfective gastroenteritis and colitis, unspecified; K57.30 Diverticulosis of large intestine without perforation or abscess without bleeding; K64.0 First degree hemorrhoids; E10.22 Type 1 diabetes mellitus with diabetic chronic kidney disease; I12.9 Hypertensive chronic kidney disease with stage 1 through stage 4 chronic kidney disease, or unspecified chronic kidney disease; N18.2 Chronic kidney disease, stage 2 (mild); J45.909 Unspecified asthma, uncomplicated; Z86.718 Personal history of other venous thrombosis and embolism; Z79.01 Long term (current) use of anticoagulants; Z79.4 Long term (current) use of insulin; Z87.891 Personal history of nicotine dependence; Z79.84 Long term (current) use of oral hypoglycemic drugs; Z79.899 Other long term (current) drug therapy
CPT/HCPCS: 45380; 82947; 88305; J2003; J2704

== ENCOUNTER → 2024-06-25 09:32 | Outpatient (BNV) | payer MEDICARE, SELFPAY | PROVIDERS: PCP Internal Medicine; Visit Provider Internal Medicine Gastroenterology | DX: Z12.11 Encounter for screening for malignant neoplasm of colon (principal); D12.0 Benign neoplasm of cecum; K57.30 Diverticulosis of large intestine without perforation or abscess without bleeding; K64.0 First degree hemorrhoids | CPT/HCPCS: 45380 ==

== ENCOUNTER 2024-07-01 11:24 | Outpatient (AMB) | payer MEDICARE, SELFPAY ==
--- OUTSIDE RECORDS SUMMARY | 2024-07-01 11:26 | XMS_ITS | Patient Health Record ---
Author Organization [facility] Address [address] [facility] [place] [address] Care Team Providers Care Seat Cover Cutter Name Role Phone DrewJabier Primary Care Provider Neha Roach Unavailable [phone] Yrn Bill Unavailable [phone] Allergies Allergen (clinical drug ingredient) Drug/Non Drug [...] Problem Acquired hammer toe of right foot (6171714822615468 ) Other hammer toe(s) (acquired), right foot (M20.41) Active confirmed Response to treatment, Improvemen t Problem Acquired hammer toe of left foot (6249212249752981 ) Other hammer toe(s) (acquired), left foot (M20.42) Active confirmed Response to treatment, Improvemen t Problem Polyneuropathy due to type 2 diabetes mellitus (897532769) Type 2 diabetes mellitus 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) Active confirmed Vital Signs Blood pressure diastolic 80 mm Hg 06/07/2024 Height 5ft 7in in 06/07/2024 Blood pressure systolic 123 mm Hg 06/07/2024 Weight 250 lbs 06/07/2024 BMI 39.15 kg/m2 06/07/2024 Procedures Procedure Date Ordered Date Performed Result Body Sit e 55553-JSEFATX NAIL, 1-5 03/08/2024 N/A 29864-AHVG SKIN LESIONS, OVER 4 03/08/2024 N/A G4953-WXOTAQYN DYSTROPHIC NAILS ANY # 03/08/2024 N/A 86107-CREDYNF NAIL, 1-5 06/07/2024 N/A 12864-VQEY SKIN LESIONS, OVER 4 06/07/2024 N/A B4945-FXSYNKDT DYSTROPHIC NAILS ANY # 06/07/2024 N/A Encounters Encounter Location Date Provider Diagnosis [facility] [address] [place] [address] 03/08/2024 Yrn Bill Type 2 diabetes mellitus with diabetic polyneuropathy E11.42 ; Tinea unguium B35.1 ; Other hammer toe(s) (acquired), right foot M20.41 and Other hammer toe(s) (acquired), left foot M20.[address] [address] 06/07/2024 Yrn Bill Type 2 diabetes mellitus with diabetic polyneuropathy E11.42 ; Tinea unguium B35.1 ; Other hammer toe(s) (acquired), right foot M20.41 and Other hammer toe(s) (acquired), left foot M20.[address] [address] 01/08/2024 Neha Horne Assessments Encounter Date Diagnosis [...] X ray : Foot, right 3V 12/23/2022 57149-ESGSHUN NAIL, 1-5 03/08/2024 81136-RKSQQNM NAIL, 1-5 06/07/2024 62143-ROWC SKIN LESIONS, OVER 4 06/07/19 83596-FRFJ SKIN LESIONS, OVER 4 03/08/20 W9375-DWTFFXDO DYSTROPHIC NAILS ANY # K0869-UXKIIKAH DYSTROPHIC NAILS ANY # Next Appt Details Provider Name:Yrn Bill , 09/10/2024 01:45:00 PM, [address] [place], [address], Insurance Providers Payer Name Payer Address Payer Phone Subscriber Number Group Number Insured Name Patient Relationship to Insured Coverage Start Date Coverage End Date [employer] 65 Medicare [address] [place] [address] [id number] Janna Iyer Self - patient is the insured Medical (General) History Medical History History ICD Code Arthritis CAD (Cholesterol) Depression type II diabetes High blood pressure keloids Reflux ( GERD) Vascular phlebitis (clots) Measles Mumps Chicken pox Bone implants/screws Transfusions Surgical History Surgery Date(Month/Year) TK R+ R 10.4 02/09/16 TK R+ R 9. 03 06/02/2016
--- OUTSIDE RECORDS SUMMARY | 2024-07-01 11:26 | XMS_ITS ---
Author Organization [facility] Address [address] [address] Care Team Providers Care [employer] Special Education Teacher Name Role Phone Jabier [place] Primary Care Provider Neha Roach Unavailable [phone] Yrn Bill Unavailable [phone] Allergies Allergen (clinical drug ingredient) Drug/Non Drug [...] Polyneuropathy due to type 2 diabetes mellitus (670583434) Type 2 diabetes mellitus 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) Active confirmed Problem Acquired hammer toe of right foot (8383607041939092 ) Other hammer toe(s) (acquired), right foot (M20.41) Active confirmed Response to treatment, Improvemen t Problem Acquired hammer toe of left foot (8404712956283819 ) Other hammer toe(s) (acquired), left foot (M20.42) Active confirmed Response to treatment, Improvemen t Vital Signs Height 5ft 7in in 03/08/2024 Weight 250 lbs 03/08/2024 BMI 39.15 kg/m2 03/08/2024 Blood pressure systolic 123 mm Hg 03/08/20 24 Blood pressure diastolic 70 mm Hg 024 Procedures Procedure Date Ordered Date Performed Result Body Sit e 02761-VJVDFRQ NAIL, 1-5 03/08/2024 N/A 13180-RNBY SKIN LESIONS, OVER 4 03/08/2024 N/A N5458-CHHEPXPU DYSTROPHIC NAILS ANY # 03/08/2024 N/A Encounters Encounter Location Date Provider Diagnosis [facility] [address] [place] [address] 03/08/2024 Yrn Bill Type 2 diabetes mellitus [...] INSTRUCTIONS.pdf) Pending Test Test Name Order Date 14003-ZIYXYEZ NAIL, 1-5 03/08/2024 08974-WGNF SKIN LESIONS, OVER 4 03/08/20 24 B1827-BJIXRWMC DYSTROPHIC NAILS ANY # Next Appt Details Follow Up: prn, Reason: Provider Name:Yrn Bill , 09/10/2024 01:45:00 PM, [address] [place] [address], [phone], Procedure Notes * Category Sub-Category Detail Notes Keratoma Treatment Parring or Cutting o f Benign Hyperkeratotic Lesion(s) (-57) More than 4 Lesions - The Benign hyperkeratotic lesions, as described above were pared, and/or cut utilizing a sterile 15 blade, tissue nippers, and/or dremel - 67854 Debride Nails 1-5 Procedure: Performance of this nail treatment by a nonprofessional would put this patients foot and overall health at risk. Therefore, nail debridement was performed extensively to reduce/remove overall nail length, girth, thickness, subungual debris, and necrotic tissue, by manual and/or electrical means through the use of a nail nipper and/or dremel-type blanchard grinder operator, to a more viable healthy nail plate or bed tissue 1-5. Silver nitrate used for any petechial bleeding as necessary. Definitive antifungal treatment options have been reviewed and discussed with the patient. The patient chooses, no pharmaceutical tx - 11051 Nail Reduction Nail Reduction (-27) Trimming o f dystrophic nails performed to reduce/remove overall nail length and girth, by manual and electrical means with use of a nail nipper and/or dremel, to more viable healthy nail plate or bed tissue, any number - G0127 Progress Notes * Janna IYERDOB:[birth year] (68 yo F)Acc No.[id number]:03/08/2024 Progress Note Patient:?Janna IYER Provider:?Yrn Bill DPM :1955???Age:68 Y???Sex:Female D ate:03/08/2024 Address:[address] [place] [address], [place], [id number] Pcp:Jabier [place] Subjective: * Chief Complaints: * [...] ?Exercise: yes, Daily. ?Marital status: single. 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 * Medications:?TakingOmeprazol e 20 MG Capsule Delayed [...] use of a nail nipper and/or dremel-type blanchard grinder operator, to a more viable healthy nail plate or bed tissue 1-5. Silver nitrate used for any petechial bleeding as necessary. Definitive antifungal treatment options have been reviewed and discussed with the patient. The patient chooses, no pharmaceutical tx - 43505.?Keratoma Treatment:?Parring or Cutting of Benign Hyperkeratotic Lesion(s)?(-57) More than 4 Lesions - The Benign hyperkeratotic lesions, as described above were pared, and/or cut utilizing a sterile 15 blade, tissue nippers, and/or dremel - 54647.?Nail Reduction:?Nail Reduction?(-27) Trimming of dystrophic nails performed to reduce/remove overall nail length and girth, by manual and electrical means with use of a nail nipper and/or dremel, to more viable healthy nail plate or bed tissue, any number - G0127.? * Procedure Codes:?G0127 ESTELA ING DYSTROPHIC NAILS ANY #, Modifiers: XS 78664 DEBRIDE NAIL, 1-5, Modifiers: XS 08405 TRIM SKIN LESIONS, OVER 4, Modifiers: XS [...] Bill DPM Date:?2023 Generated for Isamar brand/Benjamin/Zofia on:?07/01/2024 11:26 AM EST History and Physical Notes * [...]
--- OUTSIDE RECORDS SUMMARY | 2024-07-01 11:27 | XMS_ITS | Clinical Summary ---
Author Organization [facility], Address [address] [place] [address] [place] [address] Phone Care Team Providers Care Clinical Laboratory Technician Name Role Phone Ricco Hill MD Primary Care Provider [phone] Allergies Active Allergy Reactions Criticality Noted Date [...] Name Priority Date/Time Associated Diagnosis Comments LAB EXCELLENCE COACH Routine 09/25/2017 12:00 AM EDT from Last 3 Months or Most Recently Relevant to Health Maintenance Results * Lab Hot Wort Settler (09/25/2017 12:00 AM EDT) Carbon Dioxide (CO2) [...] mg/dL KCTMA 09/25/2017 us Kctma Conversion LAB [id number] LICITED RESULTS Final Result KCTMA from Last 3 Months or Most Recently Relevant to Health Maintenance Insurance [facility] Care Teams Clinical Laboratory Technician Relationship Specialty Start Date End Date Ricco Hill MD 1959 [facility] [place] [address] PCP - General 03/19/19
--- OUTSIDE RECORDS SUMMARY | 2024-07-01 11:27 | XMS_ITS ---
Author Organization [facility] Address [address] [place] [address] Care Team Providers Care Garden Worker Name Role Phone Jabier Russell Primary Care Provider UnavailNhea Tidwell Unavailable [phone] Yrn Bill Unavailable [phone] Encounters Encounter Location Date Provider Diagnosis [address] [address] 01/09/2024 Yrn Bill Plan Of Treatment Next Appt Details Provider Name:Yrn Bill , 09/10/2024 01:45:00 PM, [address] [place] [address], [phone], Progress Notes * SHIREEN, Janna MoniqueDOB:[birth year] (68 yo F)Acc No.[id number]:01/09/2024 Progress Note Patient:?Janna IYER Provider:?Yrn Bill DPM :1955???Age:68 Y???Sex:Female D ate:01/09/2024 Address:[address] [place], [place] [id number] Pcp:Jabier Russell Subjective: * Chief Complaints: * [...]
--- OUTSIDE RECORDS SUMMARY | 2024-07-01 11:27 | XMS_ITS ---
Author Organization [facility] Address [address] [place] [address] Care Team Providers Care Facility Attendant Name Role Phone Jabier Russell Primary Care Provider Neha Roach Unavailable [phone] Yrn Bill Unavailable [phone] Allergies Allergen (clinical drug ingredient) Drug/Non Drug [...] Ordered Date Performed Result Body Sit e 68553-SBSINYZ NAIL, 1-5 06/07/2024 N/A 48834-ZGEP SKIN LESIONS, OVER 4 06/07/2024 N/A T2547-VISCWTZO DYSTROPHIC NAILS ANY # 06/07/2024 N/A Encounters Encounter Location Date Provider Diagnosis [facility] [address] [address] 06/07/2024 Yrn Bill Type 2 diabetes mellitus [...] Treatment Pending Test Test Name Order Date 32490-LJTSJRW NAIL, 1-5 06/07/2024 49282-NIME SKIN LESIONS, OVER 4 06/07/19 25 S2507-EFNRSMLK DYSTROPHIC NAILS ANY # Next Appt Details Follow Up: prn, Reason: Provider Name:Yrn Bill , 09/10/2024 01:45:00 PM, [address] [place] [address], [phone], Procedure Notes * Category Sub-Category Detail Notes [...] instrumentation by the physician of record - 12000 Debride Nails 1-5 Procedure: Due to the [...] necessary to maintain effective symptomatic relief - 81336 Nail Reduction Nail Reduction (-27) Trimming o [...] * Janna IYERDOB:[birth year] (68 yo F)Acc No.[id number]:06/07/2024 Progress Note Patient:?Janna IYER Provider:?Yrn Bill DPM :1955???Age:68 Y???Sex:Female D ate:06/07/2024 Address:[address] [place] [address], [facility] [id number] Pcp:Jabier Russell Subjective: * Chief Complaints: * [...] necessary to maintain effective symptomatic relief - 85069.?Keratoma Treatment:?Parring or Cutting of Benign Hyperkeratotic Lesion(s)?(-57) [...] instrumentation by the physician of record - 81966.?Nail Reduction:?Nail Reduction?(-27) Trimming of all dystrophic nails [...] ING DYSTROPHIC NAILS ANY #, Modifiers: XS 94332 DEBRIDE NAIL, 1-5, Modifiers: XS 41786 TRIM SKIN LESIONS, OVER 4, Modifiers: XS [...] Bill DPM Date:?2024 Generated for Isamar brand/Benjamin/Zofia on:?07/01/2024 11:26 AM [...]
--- NOTE | 2024-07-01 11:29 | MHC.PC.OV ---
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 Accompanied by: Self / Same As Patient Allergies medroxyprogesterone [Provera] Allergy (Intermediate, Verified 07/01/24 11:31) SKIN PEELING niacin [From NIASPAN EXTENDED-RELEASE] Allergy (Intermediate, Verified 07/01/24 11:31) facial flushing atorvastatin [From Lipitor] Allergy (Mild, Verified 07/01/24 11:31) MUSCLE ACHES, myalgia gemfibrozil [From Lopid] Allergy (Mild, Verified 07/01/24 11:31) MUSCLE ACHES fluconazole [From DIFLUCAN] Allergy (Unknown, Verified 07/01/24 11:31) PER H&P empagliflozin [From Jardiance] Adverse Reaction (Mild, Verified 07/01/24 11:31) urinary incontinence nitroglycerin [From Nitro-Dur] Adverse Reaction (Mild, Verified 07/01/24 11:31) LOW BLOOD PRESSURE ozempic Adverse Reaction (Intermediate, Uncoded 07/01/24 11:31) Headache Medication List - Last Reconciled 07/01/24 by Ayla Pretty PA-C apixaban (Eliquis) 5 mg PO BID bisacodyl (Dulcolax (bisacodyl)) 10 mg (2 x 5 mg) PO BEDTIME 2 days blood-glucose meter,continuous (FreeStyle Ara 3 [place]) As directed blood-glucose sensor (FreeStyle Ara 3 Plus Sensor device) As directed change every 14 days calcium carbonate-vitamin D3 (Calcium 600 + D(3)) 600 mg PO DAILY citalopram 20 mg PO DAILY 90 days hydrochlorothiazide 12.5 mg PO DAILY insulin glargine (Lantus Solostar U-100 Insulin) 54 units subcut BID lisinopril 20 mg PO DAILY 90 days metformin 500 mg PO DAILY 90 days mirabegron ER (Myrbetriq) 25 mg PO DAILY 30 days omeprazole 20 mg PO DAILY pen needle, 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) BID PRN polyethylene glycol 3350 (Miralax) 238 grams PO ONCE 1 day tirzepatide (Mounjaro) 2.5 mg (0.5 mL) subcut QWEEK 28 days vitamin B complex 1 tab PO DAILY Tobacco use date assessed: 07/01/24 Fall risk assessment: No Falls in past year Last assessed Fall Risk: 07/01/24 Dental Screening Dental Screen Date: 07/01/24 Did you have a dental visit in the last 12 months?: Yes Did you have a dental problem in the last 6 months where you did not have access to dental care?: No Was dental information given to patient?: Patient has dentist HPI f/u DM and HLD HPI Details 68-year-old female with past medical history of diabetes mellitus on insulin, diabetic nephropathy, GERD, chronic kidney disease, hypertension, generalized anxiety disorder, fatty liver disease and recurrent DVT last seen 03/2024 coming in for follow up. In review of the notes, patient was seen by endocrinology 05/2024 started on Lantus 54 units twice daily and Mounjaro 2.5 mg. Patient was seen by Nephrology 05/2024 recommending follow up with Hematology and advised to avoid nephrotoxic agents Seen by urology 05/2024 advised ultrasound and started on Myrbetriq advised to follow up in 1-3 months. Seen by Hematology/Oncology 04/2024 patient was switched to Eliquis and advised to follow up in 3 months. Patient completed colonoscopy 06/25/2024 advised to follow up in 5 years. Presenting with a follow-up for Type 2 Diabetes Mellitus and Hyperlipidemia. Recent labs indicate an A1c of 6.7%, attributed to lifestyle adjustments, contributing to improved diabetes management. Hyperlipidemia management is ongoing, with plans for updated fasting blood work to assess current cholesterol levels, last noted as controlled. Patient tells us today the Myrbetriq has been helping as well. [facility] Medical History Type 2 diabetes mellitus Fatty liver determined by biopsy Urgency incontinence Fatty liver Anxiety and depression Shoulder pain, bilateral Environmental allergies LLL pneumonia Encounter for annual routine gynecological examination Contusion of foot Long-term insulin use Surgical History History of revision of total replacement of right knee joint History of colonoscopy History of total left knee replacement (TKR) History of total right knee replacement (TKR) History of breast biopsy History of tonsillectomy Family History Father Type 2 diabetes mellitus Polymyalgia Mother Cancer of thyroid Sister Breast cancer Sister Leukemia Brother Diabetes mellitus HTN (hypertension) High cholesterol Social History Household Members: None Housing: House Are you a primary resident care manager to a significant other at home: No Do you presently have visiting nurse or other home services: No Alcohol intake: former Patient Tobacco Use Status: Former Tobacco user Tobacco use type: Cigarette Years Smoked: stopped 1984 e-Cigarette/Vaping Use: Never Used Advance Directives Date on File: 03/05/20 service: No Current occupational status: employed Cognitive needs: No Hearing needs: No Vision needs: Yes Female Reproductive History Menstrual Age of Menarche: 12 Questionnaire PHQ-9 Over the last 2 weeks, how often have you been bothered by any of the following problems? 1. Little interest or pleasure in doing things: not at all 2. Feeling down, depressed, or hopeless: not at all 3. Trouble falling or staying asleep, or sleeping too much: not at all 4. Feeling tired or having little energy: not at all 5. Poor appetite or overeating: not at all 6. Feeling bad about yourself - or that you are a failure or have let yourself or your family down: not at all 7. Trouble concentrating on things, such as reading the newspaper or watching television: not at all 8. Moving or speaking so slowly that other people could have noticed. Or the opposite - being so fidgety or restless that you have been moving around a lot more than usual: not at all 9. Thoughts that you would be better off or of hurting yourself in some way: not at all Total score: 0 Depression Screening Interpretation: Negative Depression Screening Done: Yes 61135 - PHQ-9 Billing: Yes Source: Developed by Drs. Roney Mitchell, Molly Duran, Earl Muhammad and colleagues, with an educational willem from [employer]. Thrive Questionnaire Date Thrive assessed: 07/01/24 I am a: Patient What is your living situation today?: I have a steady place to live Within the past 12 months, did the food you bought not last and you didn't have the money to get more?: Never true Within the past 12 months, did you worry whether your food would run out before you got money to buy more?: Never true Do you have trouble paying for medicines?: No Do you have trouble getting transportation to medical appointments?: No Do you have trouble paying your heating and electricity bill?: No Do you have trouble taking care of your child, family member or friend?: No Do you have trouble with day-to-day activities such as bathing, preparing meals, shopping, managing finances, etc.?: No Are you currently unemployed and looking for a job?: No Are you interested in more education?: No Please select the resources that you would like help with: None Currently or been in a relationship where the following occur: No concerns reported THRIVE Score: 0 AUDIT C Alcohol Use Questionnaire (AUDIT-C) 1. How often do you have a drink containing alcohol?: Never 3. How often do you have six or more drinks on one occasion?: Never Total Score: 0 Score Reviewed/Action Taken: Yes LEX-7 AMB Questionnaire LEX-7 Date LEX - 7 assessed: 07/01/24 Feeling nervous, anxious, or on edge: 0 = Not at all Not being able to stop or control worryin = Not at all Worrying too much about different things: 0 = Not at all Trouble relaxin = Not at all Being so restless that it is hard to sit still: 0 = Not at all Becoming easily annoyed or irritable: 0 = Not at all Feeling afraid as if something awful might happen: 0 = Not at all Total LEX-7 score (0-4 normal; 5-9 mild; 10-14 moderate; 15-21 severe): 0 Source: Developed by Drs. Roney Mitchell, Molly Duran, Earl Muhammad and colleagues, with an educational willem from [employer]. LEX-7 Assessment Billing LEX-7 Assessment Tool: LEX-7 Assessment 76535 Review of Systems Const Denies body aches, Denies chills, Denies fever(s), Denies headache(s) and Denies poor appetite Eyes Reports no additional complaints ENT Denies dysphagia, Denies dizziness, Denies headache(s) and Denies odynophagia Card Denies chest pain, Denies syncope, Denies edema, Denies irregular heart rhythm, Denies lightheadedness and Denies dyspnea Resp Denies cough and Denies dyspnea GI Denies abdominal pain, Denies constipation, Denies dysphagia, Denies diarrhea, Denies nausea, Denies odynophagia and Denies vomiting Reports no additional complaints Musc Reports no additional complaints and Denies abnormal gait Skin/Breast Reports system reviewed and no additional complaints, except as documented Neuro Denies abnormal gait, Denies dizziness, Denies syncope and Denies headache(s) Psych Reports no additional complaints Physical exam (Primary Care) Vital Signs: Last Vital Signs Pulse 78 07/01/24 11:30 BP 132/80 07/01/24 11:30 Pulse Ox 95 07/01/24 11:30 Oxygen Delivery Method Room Air 07/01/24 11:30 Tobacco/Smoking Status: Tobacco use Status Tobacco use date assessed 07/01/24 07/01/24 11:33 Patient Tobacco Use Status Former Tobacco user 07/01/24 11:33 Tobacco use type Cigarette 07/01/24 11:33 e-Cigarette/Vaping Use Never Used 07/01/24 11:33 Depression Screening Interpretation: Negative Thrive Assessment: Date of Thrive Assessment Date Thrive assessed 09/12/23 07/01/24 11:33 Currently or been in a relationship where the following occur: No concerns reported Const General: cooperative, healthy appearing, comfortable and no acute distress Orientation/consciousness: patient oriented x3 [facility] Head: Yes normocephalic Ears: hearing grossly normal bilaterally General nose exam: Normal external nose present Eyes General: appearance normal, both eyes and all related structures Conjunctivae: conjunctivae normal Neck Neck: Yes full ROM and Yes no lymphadenopathy Resp Effort & Inspection: normal respiratory effort Auscultation: clear to auscultation bilaterally, no crackles, no rales, no rhonchi and no wheezes Cardio Rate: regular rate Rhythm: regular rhythm Skin General skin exam: no rashes or lesions noted Neuro General: patient oriented x3 Gait exam (Neuro): Normal gait present Extrem General: Yes normal to inspection, Yes full ROM and No edema Psych Affect: normal affect Attitude: cooperative Insight: Good insight present (Psych) Judgement: Good judgement present (Psych) Results AMB Hemoglobin A1c AMB Hemoglobin A1c 6.7 % Last Edit by DRAKE Rudolph on 07/01/24 11:37 Coding Level of Care Code Est Pt Level 4 (36826) Diagnoses Type 2 diabetes mellitus with diabetic nephropathy, with long-term current use of insulin E11.21; Z79.4 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 use: with environmental services floor tech use Diabetes mellitus complication status: with kidney complications Diabetes mellitus complication detail: with nephropathy Urinary incontinence, mixed N39.46 DVT femoral (deep venous thrombosis) with thrombophlebitis I82.419 Hypertension, essential I10 Chronic kidney disease, stage 2 (mild) N18.2 Diabetic nephropathy associated with diabetes mellitus due to underlying condition E08.21 Diabetes mellitus type: due to underlying condition Chronic GERD K21.9 Additional Codes LEX-7 Assessment Billing - LEX-7 Assessment Tool: LEX-7 Assessment 11003 ([id number]) PHQ-9 - 51415 - PHQ-9 Billing: Yes ([id number]) Assessment & Plan Assessment & Plan (1) Type 2 diabetes mellitus: Code(s): E11.9 - Type 2 diabetes mellitus without complications Category: Medical Qualifiers: 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 use: with usp use Diabetes mellitus complication status: with kidney complications Diabetes mellitus complication detail: with nephropathy Qualified Code(s): E11.21 - Type 2 diabetes mellitus with diabetic nephropathy; Z79.4 - 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 Although fruits are generally healthy they should be eaten in moderation as they are still high in sugar. Hemoglobin A1c goal of less than 7%. Patient was recently seen by endocrinology insulin was increased to 54 units b.i.d. and continued on Mounjaro 2.5 mg (2) Urinary incontinence, mixed: Code(s): N39.46 - Mixed incontinence Category: Medical Plan: Recently seen by Urology started on Myrbetriq and advised to follow up in 1-3 months after ultrasound can be completed. (3) DVT femoral (deep venous thrombosis) with thrombophlebitis: Code(s): I82.419 - Acute embolism and thrombosis of unspecified femoral vein Category: Medical Plan: Currently following with Hematology/Oncology has been on warfarin 10 mg for many years and recently attempted to switch to Eliquis. Patient has been on Eliquis without complication and follow up with Hematology coming up (4) Hypertension, essential: Code(s): I10 - Essential (primary) hypertension Category: Medical Plan: Continue on current blood pressure medication. Avoid salt intake and encourage healthy diet and regular exercise. (5) Chronic kidney disease, stage 2 (mild): Code(s): N18.2 - Chronic kidney disease, stage 2 (mild) Category: Medical Plan: Patient is following with kidney specialist advised to avoid nephrotoxic agents such as NSAIDs and stay well hydrated. Jardiance was recommended by preload supervisor however patient could not tolerate side effects. Continue to follow with Nephrology (6) Diabetic nephropathy: Code(s): E11.21 - Type 2 diabetes mellitus with diabetic nephropathy Category: Medical Qualifiers: Diabetes mellitus type: due to underlying condition Qualified Code(s): E08.21 - Diabetes mellitus due to underlying condition with diabetic nephropathy Plan: Patient is following with kidney specialist advised to avoid nephrotoxic agents such as NSAIDs and stay well hydrated. Jardiance was recommended by preload supervisor however patient could not tolerate side effects. (7) Chronic GERD: Code(s): K21.9 - Gastro-esophageal reflux disease without esophagitis Category: Medical Plan: Avoid trigger foods such as citrus, tomato products, soda, caffeine, spicy foods and other foods that may be irritating to your stomach. Avoid laying flat 3-4 hours after eating and elevate the head of the bed 30 degrees to prevent acid from moving into the esophagus. Continue on omeprazole 20 Plan This note was constructed using voice recognition software. While every effort has been made to ensure accuracy and digital marketing officer, still areas may have been included sometimes these areas may affect the content or meeting of the given symptoms. Total time spent caring for the patient today was 20 minutes. This includes time spent before the visit reviewing the chart, time spent during the visit, and time spent after the visit and documentation. Orders: Orders AMB Hemoglobin A1c Today E11.9 - Type 2 diabetes mellitus without complications Medications: Discontinued bisacodyl (Dulcolax (bisacodyl)) Discontinued Reason: Patient no longer taking 10 mg (2 x 5 mg) PO BEDTIME 2 days 4 tabs 0RF polyethylene glycol 3350 (Miralax) Discontinued Reason: Patient no longer taking 238 grams PO ONCE 1 day 238 grams 0RF colonoscopy prep
[2024-07-01 11:30] VITALS: BP 132/80; PULSE 78; O2SAT 95
== END 2024-07-01 12:15 | disposition home or self-care (01) ==
PROVIDERS: PCP Internal Medicine
DX: E11.21 Type 2 diabetes mellitus with diabetic nephropathy (principal); Z79.4 Long term (current) use of insulin; N39.46 Mixed incontinence; I82.419 Acute embolism and thrombosis of unspecified femoral vein; I12.9 Hypertensive chronic kidney disease with stage 1 through stage 4 chronic kidney disease, or unspecified chronic kidney disease; N18.2 Chronic kidney disease, stage 2 (mild); E08.21 Diabetes mellitus due to underlying condition with diabetic nephropathy; K21.9 Gastro-esophageal reflux disease without esophagitis

== ENCOUNTER → 2024-07-01 11:24 | Outpatient (BNVA) | payer MEDICARE, SELFPAY | PROVIDERS: PCP Internal Medicine | DX: E11.21 Type 2 diabetes mellitus with diabetic nephropathy (principal); Z79.4 Long term (current) use of insulin; I12.9 Hypertensive chronic kidney disease with stage 1 through stage 4 chronic kidney disease, or unspecified chronic kidney disease; E11.22 Type 2 diabetes mellitus with diabetic chronic kidney disease; N18.2 Chronic kidney disease, stage 2 (mild); K21.9 Gastro-esophageal reflux disease without esophagitis; N39.46 Mixed incontinence; Z86.718 Personal history of other venous thrombosis and embolism | CPT/HCPCS: 83036; 96127; 99212 ==

== ENCOUNTER 2024-07-05 09:53 | Outpatient (REF) | payer MEDICARE, SELFPAY ==
--- NOTE | ~2024-07-05 | US_ITS ---
CLINICAL HISTORY: N39.46 - Mixed incontinence US Renal Comparison: None Findings: Right kidney normal size and echotexture, 12 cm length. Left kidney normal size and echotexture, 12 cm length. There are hyperechoic lesions of the kidney 0.9 x 0.9 x 0.8 cm, 2 x 2 x 1.8 cm and 1.1 x 0.8 x 0.9 cm. No collecting system dilatation of either kidney. Normal color Doppler. No bladder lesions. Prevoid volume 266 mL. Postvoid volume 160 mL. Bilateral ureteral jets are visualized. IMPRESSION: Echogenic lesions of the left kidney could represent angiomyolipoma. Comparison to the prior imaging examination is recommended. Further evaluation by CT as indicated. Postvoid urinary retention of the bladder. This document has been electronically signed by: Gene Kerns MD on 07/08/2024 21:28:50
--- NOTE | ~2024-07-05 | US_ITS ---
EXAMINATION: US PELVIS CLINICAL INFORMATION: Postmenopausal bleed COMPARISON: October 30, 2011 is not available on PACS TECHNIQUE: Ultrasound of the pelvis is performed using both transabdominal and transvaginal transducers along with Doppler. Transvaginal imaging is performed due to inadequate visualization transabdominally. FINDINGS: Uterus: The uterus is anteverted and measures 7 x 2 x 4 cm. The double wall endometrial thickness is 2 mm. The uterus is smooth in contour and has normal myometrial echogenicity. No visible fibroid. Adnexa: The right ovary is not identified.. The left ovary is present with flow on color Doppler interrogation. No free fluid in the cul-de-sac. Left ovary measures 2 x 2 x 2 cm. Volume: 2 cc There is a 1.3 cm anechoic structure without flow on color Doppler interrogation. US/US pelvic and transvaginal IMPRESSION: Normal endometrial stripe. Right ovary is not identified. 1.3 cm cystic lesion, left ovary Electronically signed by: Corbin Sullivan MD 07/08/2024 08:56 AM EST
--- OUTSIDE RECORDS SUMMARY | 2024-07-05 10:34 | XMS_ITS ---
Author Organization [facility] Address [address] [place] [address] Care Team Providers Care Armament Installer Name Role Phone Jabier Russell Primary Care Provider Neha Roach Unavailable [phone] Yrn Bill Unavailable [phone] Allergies Allergen (clinical drug ingredient) Drug/Non Drug [...] Polyneuropathy due to type 2 diabetes mellitus ([id number]) Type 2 diabetes mellitus 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) Active confirmed Problem Acquired hammer toe of right foot ([id number] ) Other hammer toe(s) (acquired), right foot (M20.41) Active confirmed Response to treatment, Improvemen t Problem Acquired hammer toe of left foot ([id number] ) Other hammer toe(s) (acquired), left foot (M20.42) Active confirmed Response to treatment, Improvemen t Vital Signs Blood pressure systolic 123 mm Hg 03/08/20 24 Blood pressure diastolic 70 mm Hg 024 Height 5ft 7in in 03/08/2024 Weight 250 lbs 03/08/2024 BMI 39.15 kg/m2 03/08/2024 Procedures Procedure Date Ordered Date Performed Result Body Sit e 07666-VNWGPXG NAIL, 1-5 03/08/2024 N/A 45042-YISR SKIN LESIONS, OVER 4 03/08/2024 N/A X6273-DFNRBILF DYSTROPHIC NAILS ANY # 03/08/2024 N/A Encounters Encounter Location Date Provider Diagnosis [facility] [address] [place] [address] 03/08/2024 Yrn Bill Type 2 diabetes mellitus [...] INSTRUCTIONS.pdf) Pending Test Test Name Order Date 76666-PKGIGAS NAIL, 1-5 03/08/2024 05712-FQVY SKIN LESIONS, OVER 4 03/08/20 24 F8510-WJHEAWTS DYSTROPHIC NAILS ANY # Next Appt Details Follow Up: prn, Reason: Provider Name:Yrn Bill , 09/10/2024 01:45:00 PM, [address] [place] [address], [phone], Procedure Notes * Category Sub-Category Detail Notes Keratoma Treatment Parring or Cutting o f Benign Hyperkeratotic Lesion(s) (-57) More than 4 Lesions - The Benign hyperkeratotic lesions, as described above were pared, and/or cut utilizing a sterile 15 blade, tissue nippers, and/or dremel - 29676 Debride Nails 1-5 Procedure: Performance of this nail treatment by a nonprofessional would put this patients foot and overall health at risk. Therefore, nail debridement was performed extensively to reduce/remove overall nail length, girth, thickness, subungual debris, and necrotic tissue, by manual and/or electrical means through the use of a nail nipper and/or dremel-type snuff grinder, to a more viable healthy nail plate or bed tissue 1-5. Silver nitrate used for any petechial bleeding as necessary. Definitive antifungal treatment options have been reviewed and discussed with the patient. The patient chooses, no pharmaceutical tx - 56187 Nail Reduction Nail Reduction (-27) Trimming o f dystrophic nails performed to reduce/remove overall nail length and girth, by manual and electrical means with use of a nail nipper and/or dremel, to more viable healthy nail plate or bed tissue, any number - G0127 Progress Notes * Janna IYERDOB:[birth year] (68 yo F)Acc No.[id number]:03/08/2024 Progress Note Patient:?Janna IYER Provider:?Yrn Bill DPM :1955???Age:68 Y???Sex:Female D ate:03/08/2024 Address:[address] [place] [address], [place], [id number] Pcp:Jabier Russell Subjective: * Chief Complaints: * [...] ?Exercise: yes, Daily. ?Marital status: single. 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 * Medications:?TakingOmeprazol e 20 MG Capsule Delayed [...] use of a nail nipper and/or dremel-type snuff grinder, to a more viable healthy nail plate or bed tissue 1-5. Silver nitrate used for any petechial bleeding as necessary. Definitive antifungal treatment options have been reviewed and discussed with the patient. The patient chooses, no pharmaceutical tx - 31537.?Keratoma Treatment:?Parring or Cutting of Benign Hyperkeratotic Lesion(s)?(-57) More than 4 Lesions - The Benign hyperkeratotic lesions, as described above were pared, and/or cut utilizing a sterile 15 blade, tissue nippers, and/or dremel - 46087.?Nail Reduction:?Nail Reduction?(-27) Trimming of dystrophic nails performed to reduce/remove overall nail length and girth, by manual and electrical means with use of a nail nipper and/or dremel, to more viable healthy nail plate or bed tissue, any number - G0127.? * Procedure Codes:?G0127 ESTELA ING DYSTROPHIC NAILS ANY #, Modifiers: XS 00986 DEBRIDE NAIL, 1-5, Modifiers: XS 16753 TRIM SKIN LESIONS, OVER 4, Modifiers: XS [...] Bill DPM Date:?2023 Generated for Isamar brand/Benjamin/Zofia on:?07/05/2024 10:34 AM EST History and Physical Notes * [...]
--- OUTSIDE RECORDS SUMMARY | 2024-07-05 10:34 | XMS_ITS | Clinical Summary ---
Author Organization [facility], Address [address] [place] [address] [place] [address] Phone Care Team Providers Care Tunnel Heading Inspector Name Role Phone Ricco Hill MD Primary Care Provider [phone] Allergies Active Allergy Reactions Criticality Noted Date [...] Name Priority Date/Time Associated Diagnosis Comments LAB STENO POOL SUPERVISOR Routine 09/25/2017 12:00 AM EDT from Last 3 Months or Most Recently Relevant to Health Maintenance Results * Lab Reprographics Technician (09/25/2017 12:00 AM EDT) Carbon Dioxide [...] mg/dL KCTMA 09/25/2017 us Kctma Conversion LAB WHSONGNCMP-FWLICVHMUTJ-OUAF LICITED RESULTS Final Result KCTMA from Last 3 Months or Most Recently Relevant to Health Maintenance Insurance [facility] Care Teams Tunnel Heading Inspector Relationship Specialty Start Date End Date Ricco Hill MD [address] [facility] [place] [facility] [place] [address] PCP - General 03/19/19
--- OUTSIDE RECORDS SUMMARY | 2024-07-05 10:34 | XMS_ITS | Patient Health Record ---
Author [facility] Address [address] [facility] [place] [address] Care Team Providers Care Nurse Infection Control Name Role Phone DrewJabier Primary Care Provider Neha Roach Unavailable [phone] Yrn Bill Unavailable [phone] Allergies Allergen (clinical drug ingredient) Drug/Non Drug [...] Problem Acquired hammer toe of right foot (2887350226902348 ) Other hammer toe(s) (acquired), right foot (M20.41) Active confirmed Response to treatment, Improvemen t Problem Acquired hammer toe of left foot (5605573873811222 ) Other hammer toe(s) (acquired), left foot (M20.42) Active confirmed Response to treatment, Improvemen t Problem Polyneuropathy due to type 2 diabetes mellitus (649452474) Type 2 diabetes mellitus 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) Active confirmed Vital Signs Blood pressure diastolic 80 mm Hg 06/07/2024 Height 5ft 7in in 06/07/2024 Blood pressure systolic 123 mm Hg 06/07/2024 Weight 250 lbs 06/07/2024 BMI 39.15 kg/m2 06/07/2024 Procedures Procedure Date Ordered Date Performed Result Body Sit e 08674-SMFNAEP NAIL, 1-5 03/08/2024 N/A 99733-KHIP SKIN LESIONS, OVER 4 03/08/2024 N/A Z1066-UGBVWYGV DYSTROPHIC NAILS ANY # 03/08/2024 N/A 66041-FQMVIMW NAIL, 1-5 06/07/2024 N/A 83652-OGAD SKIN LESIONS, OVER 4 06/07/2024 N/A Z8885-XZIAAVPT DYSTROPHIC NAILS ANY # 06/07/2024 N/A Encounters Encounter Location Date Provider Diagnosis [facility] [place] [address] [place] [address] 03/08/2024 Yrn Bill Type 2 diabetes mellitus with diabetic polyneuropathy E11.42 ; Tinea unguium B35.1 ; Other hammer toe(s) (acquired), right foot M20.41 and Other hammer toe(s) (acquired), left foot M20.[address] [address] 06/07/2024 Yrn Bill Type 2 diabetes mellitus with diabetic polyneuropathy E11.42 ; Tinea unguium B35.1 ; Other hammer toe(s) (acquired), right foot M20.41 and Other hammer toe(s) (acquired), left foot M20.[address] [address] 01/08/2024 Neha Horne Assessments Encounter Date Diagnosis [...] X ray : Foot, right 3V 12/23/2022 79886-OYOUBNG NAIL, 1-5 03/08/2024 05523-BJTFIOG NAIL, 1-5 06/07/2024 49907-YMAW SKIN LESIONS, OVER 4 06/07/19 45218-KWJY SKIN LESIONS, OVER 4 03/08/20 R9708-IEEPGUDC DYSTROPHIC NAILS ANY # K7319-KWHKALCQ DYSTROPHIC NAILS ANY # Next Appt Details Provider Name:Yrn Bill , 09/10/2024 01:45:00 PM, [address] [place], [address], Insurance Providers Payer Name Payer Address Payer Phone Subscriber Number Group Number Insured Name Patient Relationship to Insured Coverage Start Date Coverage End Date [employer] 65 Medicare [address] [place] [address] [id number] Janna Iyer Self - patient is the insured Medical (General) History Medical History History ICD Code Arthritis CAD (Cholesterol) Depression type II diabetes High blood pressure keloids Reflux ( GERD) Vascular phlebitis (clots) Measles Mumps Chicken pox Bone implants/screws Transfusions Surgical History Surgery Date(Month/Year) TK R+ R 10.4 02/09/16 TK R+ R 9. 03 06/02/2016
--- OUTSIDE RECORDS SUMMARY | 2024-07-05 10:34 | XMS_ITS ---
Author Organization [facility] Address [address] [place] [address] Care Team Providers Care Sexual Assault Counselor Name Role Phone Jabier Russell Primary Care Provider UnavailNeha Tidwell Unavailable [phone] Yrn Bill Unavailable [phone] Encounters Encounter Location Date Provider Diagnosis [address] [address] 01/09/2024 Yrn Bill Plan Of Treatment Next Appt Details Provider Name:Yrn Bill , 09/10/2024 01:45:00 PM, [address] [place] [address], [address], Progress Notes * SHIREEN, Janna MoniqueDOB:[birth year] (68 yo F)Acc No.[id number]:01/09/2024 Progress Note Patient:?Janna IYER Provider:?Yrn Bill DPM :1955???Age:68 Y???Sex:Female D ate:01/09/2024 Address:[address] [place], [place] [address]y [id number] Pcp:Jabier Russell Subjective: * Chief Complaints: * [...]
--- OUTSIDE RECORDS SUMMARY | 2024-07-05 10:34 | XMS_ITS ---
Author Organization [facility] Address [address] [place] [address] Care Team Providers Care Motor Operator Name Role Phone Jabier Russell Primary Care Provider Neha Roach Unavailable [phone] Yrn Bill Unavailable [phone] Allergies Allergen (clinical drug ingredient) Drug/Non Drug [...] No Points 0 Interpretation Negative Vital Signs Blood pressure systolic 123 mm Hg 06/07/19 25 Blood pressure diastolic 80 mm Hg 025 Height 5ft 7in in 06/07/2024 Weight 250 lbs 06/07/2024 BMI 39.15 kg/m2 06/07/2024 Procedures Procedure Date Ordered Date Performed Result Body Sit e 01945-XBTLQEQ NAIL, 1-06/07/2024 N/A 14741-GBMX SKIN LESIONS, OVER 4 06/07/2024 N/A T0910-CQXPKUTR DYSTROPHIC NAILS ANY # 06/07/2024 N/A Encounters Encounter Location Date Provider Diagnosis [facility] [address] [address] 06/07/2024 Yrn Bill Type 2 diabetes mellitus [...] Treatment Pending Test Test Name Order Date 92737-RSFAMZB NAIL, 1-5 06/07/2024 97081-VGWV SKIN LESIONS, OVER 4 06/07/19 25 O4902-AKUWGRGO DYSTROPHIC NAILS ANY # Next Appt Details Follow Up: prn, Reason: Provider Name:Yrn Bill , 09/10/2024 01:45:00 PM, [address] [place] [address], [phone], Procedure Notes * Category Sub-Category Detail Notes [...] instrumentation by the physician of record - 52958 Debride Nails 1-5 Procedure: Due to the [...] necessary to maintain effective symptomatic relief - 07812 Nail Reduction Nail Reduction (-27) Trimming o [...] * Janna IYERDOB:[birth year] (68 yo F)Acc No.[id number]:06/07/2024 Progress Note Patient:?Janna IYER Provider:?Yrn Bill DPM :1955???Age:68 Y???Sex:Female D ate:06/07/2024 Address:[address] [place] [address] [id number] Pcp:Jabier Russell Subjective: * Chief Complaints: * [...] necessary to maintain effective symptomatic relief - 56234.?Keratoma Treatment:?Parring or Cutting of Benign Hyperkeratotic Lesion(s)?(-57) [...] instrumentation by the physician of record - 13513.?Nail Reduction:?Nail Reduction?(-27) Trimming of all dystrophic nails [...] ING DYSTROPHIC NAILS ANY #, Modifiers: XS 36797 DEBRIDE NAIL, 1-5, Modifiers: XS 55118 TRIM SKIN LESIONS, OVER 4, Modifiers: XS [...] Bill DPM Date:?2024 Generated for Isamar brand/Benjamin/Zofia on:?07/05/2024 10:34 AM [...]
== END 2024-07-05 09:54 | disposition home or self-care (01) ==
LOC: HO.US 09:53
PROVIDERS: PCP Internal Medicine; Visit Provider Advanced Practice Midwife
DX: N95.0 Postmenopausal bleeding (principal); N39.46 Mixed incontinence; N39.41 Urge incontinence
CPT/HCPCS: 76770; 76830; 76856

== ENCOUNTER → 2024-07-05 09:55 | Outpatient (BNV) | payer MEDICARE, SELFPAY | PROVIDERS: PCP Internal Medicine; Visit Provider Radiology Diagnostic Radiology | DX: N95.0 Postmenopausal bleeding (principal); N39.46 Mixed incontinence | CPT/HCPCS: 76770; 76830; 76856 ==

== ENCOUNTER 2024-07-25 11:39 | Outpatient (AMB) | payer MEDICARE, SELFPAY ==
--- NOTE | 2024-07-25 11:46 | MHC.OFFVIS ---
Intake Visit Reasons: 2m/US(set) Intake Note: Patient presents for follow visit for incontinence and ultrasound results imaging completed: 07/05/24 Urology Medications: myrbetriq Blood Thinner:warfarin,apixaban PVR:0ml's Medical Radiation Tech Required: No Accompanied by: Self / Same As Patient Allergies medroxyprogesterone [Provera] Allergy (Intermediate, Verified 07/25/24 12:12) SKIN PEELING niacin [From NIASPAN EXTENDED-RELEASE] Allergy (Intermediate, Verified 07/25/24 12:12) facial flushing atorvastatin [From Lipitor] Allergy (Mild, Verified 07/25/24 12:12) MUSCLE ACHES, myalgia gemfibrozil [From Lopid] Allergy (Mild, Verified 07/25/24 12:12) MUSCLE ACHES fluconazole [From DIFLUCAN] Allergy (Unknown, Verified 07/25/24 12:12) PER H&P empagliflozin [From Jardiance] Adverse Reaction (Mild, Verified 07/25/24 12:12) urinary incontinence nitroglycerin [From Nitro-Dur] Adverse Reaction (Mild, Verified 07/25/24 12:12) LOW BLOOD PRESSURE ozempic Adverse Reaction (Intermediate, Uncoded 07/25/24 12:12) Headache Medication List - Last Reconciled 07/25/24 by SERA Sesay-ZANE apixaban (Eliquis) 5 mg PO BID blood-glucose meter,continuous (FreeStyle Ara 3 [place]) As directed blood-glucose sensor (FreeStyle Ara 3 Plus Sensor device) As directed change every 14 days calcium carbonate-vitamin D3 (Calcium 600 + D(3)) 600 mg PO DAILY citalopram 20 mg PO DAILY 90 days hydrochlorothiazide 12.5 mg PO DAILY insulin glargine (Lantus Solostar U-100 Insulin) 54 units subcut BID lisinopril 20 mg PO DAILY 90 days metformin 500 mg PO DAILY 90 days mirabegron ER (Myrbetriq) 25 mg PO DAILY 30 days omeprazole 20 mg PO DAILY pen needle, 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) BID PRN tirzepatide (Mounjaro) 2.5 mg (0.5 mL) subcut QWEEK 28 days vitamin B complex 1 tab PO DAILY HPI Comments Details: Janna is a 68-year-old female patient of Dr. Russell. She has a past medical history of type 2 diabetes, fatty liver, anxiety, depression, environmental allergies, and urge incontinence. She presents to the office today for follow-up. Of note, patient was seen approximately 2 months ago as a new patient for ongoing lower urinary tract symptoms she has been experiencing at which time a retroperitoneal ultrasound was ordered for further assessment evaluation in the patient was started on Myrbetriq 25 mg daily. Recent renal imaging 07/09 bilateral kidneys are normal in size and echotexture. 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 Recommendation is made for further evaluation with CT per radiology report. No bladder lesions. Pre void bladder volume is approximately 270 mL. Postvoid bladder volume is approximately 160 mL. She reports feeling a significant improvement in urinary urgency and frequency. She discusses being able to not wear a peripad and feels this has been extremely helpful. we discussed at length potential causes of these lower urinary tract symptoms. She does have a history of 2 vaginal births in the past. We discussed importance of management and diabetes as well as weight loss in relation to lower urinary tract symptoms as well as overall health and well-being. In office urinalysis results reviewed with the patient today. PVR 0ml's. She discusses feeling lower urinary tract symptoms have been present for many years. she otherwise offers no other issues or concerns at this time. [facility] Medical History Type 2 diabetes mellitus Fatty liver determined by biopsy Urgency incontinence Fatty liver Anxiety and depression Shoulder pain, bilateral Environmental allergies LLL pneumonia Encounter for annual routine gynecological examination Contusion of foot Long-term insulin use Surgical History History of revision of total replacement of right knee joint History of colonoscopy History of total left knee replacement (TKR) History of total right knee replacement (TKR) History of breast biopsy History of tonsillectomy Family History Father Type 2 diabetes mellitus Polymyalgia Mother Cancer of thyroid Sister Breast cancer Sister Leukemia Brother Diabetes mellitus HTN (hypertension) High cholesterol Social History Household Members: None Housing: House Are you a primary child care coordinator to a significant other at home: No Do you presently have visiting nurse or other home services: No Alcohol intake: former Patient Tobacco Use Status: Former Tobacco user Tobacco use type: Cigarette Years Smoked: stopped 1984 e-Cigarette/Vaping Use: Never Used Advance Directives Date on File: 03/05/20 service: No Current occupational status: employed Cognitive needs: No Hearing needs: No Vision needs: Yes Female Reproductive History Menstrual Age of Menarche: 12 Review of Systems Const All systems reviewed & are unremarkable except as noted in HPI and below Physical Exam Const General: cooperative, healthy appearing, comfortable, no acute distress, well developed, alert and awake Nutritional Appearance: overweight Orientation/consciousness: patient oriented x3 Limitations: no limitations HEENT Head: Yes normal to inspection, Yes normocephalic and Yes atraumatic Ears: hearing grossly normal bilaterally Eyes General: appearance normal, both eyes and all related structures Neck Neck: Yes normal visual inspection and Yes trachea midline Chest Chest palpation & inspection: normal inspection of the chest Resp Effort & Inspection: normal respiratory effort and able to speak in complete sentences Cardio Rate: regular rate GI Inspection: Yes normal to inspection General: Yes no CVA tenderness Back/Spine/Pelvis Back: no CVA tenderness Skin General skin exam: no rashes or lesions noted Neuro General: patient oriented x3 Extrem General: Yes normal to inspection Psych Appearance: grossly normal and well kempt Mental Status: mental status grossly normal Speech and movement: Normal speech and movement present and Clear speech present Affect: normal affect Attitude: cooperative Thought process: Normal thought process present Thought content: Normal thought content present Insight: Fair insight present (Psych) Judgement: Fair judgement present (Psych) Office Procedures Post Void Residual Post Residual Void Post Void Residual (PVR): 0 43325-Oaue Void Residual by ultrasound Results AMB Urinalysis, Automated UA Leukoctes 0 Rayshawn/uL Last Edit by [employer]rempstar T[employer] Selena on 07/25/24 12:06 UA Nitrite Last Edit by [employer] Selena on 07/25/24 12:06 UA Urobilinogen 0.2 mg/dL Last Edit by [employer] Selena on 07/25/24 12:06 UA Protein 30 mg/dL Last Edit by [employer] Selena on 07/25/24 12:06 UA pH 5.5 Last Edit by Ricardo Walters on 07/25/24 12:06 UA Blood 0 Jb/uL Last Edit by Ricardo Walters on 07/25/24 12:06 UA Specific [place] 1.015 Last Edit by Ricardo Walters on 07/25/24 12:06 UA Ketone Negative Last Edit by Ricardo Walters on 07/25/24 12:06 UA Bilirubin 0 mg/dL Last Edit by Ricardo Walters on 07/25/24 12:06 UA Glucose 0 mg/dL Last Edit by Ricardo Walters on 07/25/24 12:06 Results Reviewed Results Reviewed: Laboratory Last Values Urine pH (Auto) 5.5 07/25/24 11:52 Specific [place] (Auto) 1.015 07/25/24 11:52 Urine Protein (Auto) 30 mg/dL 07/25/24 11:52 Glucose (UA)(Auto) 0 mg/dL 07/25/24 11:52 Urine Ketones (Auto) Negative 07/25/24 11:52 Urine Blood (Auto) 0 Jb/uL 07/25/24 11:52 Urine Bilirubin (Auto) 0 mg/dL 07/25/24 11:52 Urine Urobilinogen (Auto) 0.2 mg/dL 07/25/24 11:52 Leukocyte Esterase (Auto) 0 Rayshawn/uL 07/25/24 11:52 Date of Service: 07/05/24 Procedure(s): US retroperitoneal comp Findings: Right kidney normal size and echotexture, 12 cm length. Left kidney normal size and echotexture, 12 cm length. There are hyperechoic lesions of the kidney 0.9 x 0.9 x 0.8 cm, 2 x 2 x 1.8 cm and 1.1 x 0.8 x 0.9 cm. No collecting system dilatation of either kidney. Normal color Doppler. No bladder lesions. Prevoid volume 266 mL. Postvoid volume 160 mL. Bilateral ureteral jets are visualized. IMPRESSION: Echogenic lesions of the left kidney could represent angiomyolipoma. Comparison to the prior imaging examination is recommended. Further evaluation by CT as indicated. Postvoid urinary retention of the bladder. 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 PVR 0 mL. We discussed recent retroperitoneal ultrasound results with the patient today; as noted above. We discussed obtaining further imaging for further assessment evaluation of question angiolipoma. Continue Myrbetriq. We discussed at length the importance of managing diabetes as well as weight loss in relation to lower urinary tract symptoms as well as overall health and well-being. Patient reports be happy with current voiding parameters. Follow-up in 3 months with PVR; or sooner with any issues, concerns, and or questions. Orders: Orders AMB Urinalysis Automated Today Z13.9 - Encounter for screening, unspecified AMB Post Void Residual by ultrasound Today N39.46 - Mixed incontinence Medications: Changed From mirabegron ER (Myrbetriq) 25 mg PO DAILY 30 days 30 tabs 3RF N30.10 - Interstitial cystitis (chronic) without hematuria, N32.81 - Overactive bladder, R35.1 - Nocturia, R39.15 - Urgency of urination To mirabegron ER (Myrbetriq) 25 mg PO DAILY 90 days 90 tabs 1RF N30.10 - Interstitial cystitis (chronic) without hematuria, N32.81 - Overactive bladder, R35.1 - Nocturia, R39.15 - Urgency of urination Patient Instructions: The patient had an opportunity to ask questions regarding the treatment plan. All questions were answered. Physical exam, labs, and imaging were discussed and reviewed in detail. As well as risks, benefits, and discussion of treatment choices. No major barriers to understanding were identified. The patient expressed understanding and agreement with the above treatment plan. The patient was made aware they should contact our office by phone for worsening of their current condition, the appearance of new symptoms, or with any questions or concerns. Compliance is encouraged with any medications and follow up testing that is ordered. It is a privilege to be allowed the opportunity to participate in? your urological care.? Again, if you have any questions or concerns If you have any questions or concerns please do not hesitate to contact me. The office is [phone]. This note is constructed using voice recognition software. While every effort has been made to ensure accuracy styrene dehydration reactor operator errors may have been included. 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
--- OUTSIDE RECORDS SUMMARY | 2024-07-25 15:05 | XMS_ITS ---
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 Name Role Phone Jabier Russell Primary Care Provider Neha Roach Unavailable [phone] Yrn Bill Unavailable [phone] Allergies Allergen (clinical drug ingredient) Drug/Non Drug [...] Polyneuropathy due to type 2 diabetes mellitus ([id number]) Type 2 diabetes mellitus 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) Active confirmed Problem Acquired hammer toe of right foot (3592235243813442 ) Other hammer toe(s) (acquired), right foot (M20.41) Active confirmed Response to treatment, Improvemen t Problem Acquired hammer toe of left foot (6926166596390135 ) Other hammer toe(s) (acquired), left foot (M20.42) Active confirmed Response to treatment, Improvemen t Vital Signs Height 5ft 7in in 03/08/2024 Weight 250 lbs 03/08/2024 BMI 39.15 kg/m2 03/08/2024 Blood pressure systolic 123 mm Hg 03/08/20 24 Blood pressure diastolic 70 mm Hg 024 Procedures Procedure Date Ordered Date Performed Result Body Sit e 06039-KNTTYOE NAIL, 1-5 03/08/2024 N/A 28218-TEVH SKIN LESIONS, OVER 4 03/08/2024 N/A L5752-CLHQTQLJ DYSTROPHIC NAILS ANY # 03/08/2024 N/A Encounters Encounter Location Date Provider Diagnosis [facility] [place] [address] [place] [address] 03/08/2024 Yrn Bill Type 2 diabetes mellitus [...] INSTRUCTIONS.pdf) Pending Test Test Name Order Date 32838-NWIBTCT NAIL, 1-5 03/08/2024 51495-NAWK SKIN LESIONS, OVER 4 03/08/20 24 W1026-JNURRJNO DYSTROPHIC NAILS ANY # Next Appt Details Follow Up: prn, Reason: Provider Name:Yrn Bill , 09/10/2024 01:45:00 PM, [address] [place] [address], [phone], Procedure Notes * Category Sub-Category Detail Notes Keratoma Treatment Parring or Cutting o f Benign Hyperkeratotic Lesion(s) (-57) More than 4 Lesions - The Benign hyperkeratotic lesions, as described above were pared, and/or cut utilizing a sterile 15 blade, tissue nippers, and/or dremel - 61238 Debride Nails 1-5 Procedure: Performance of this nail treatment by a nonprofessional would put this patients foot and overall health at risk. Therefore, nail debridement was performed extensively to reduce/remove overall nail length, girth, thickness, subungual debris, and necrotic tissue, by manual and/or electrical means through the use of a nail nipper and/or dremel-type outer diameter grinder tool, to a more viable healthy nail plate or bed tissue 1-5. Silver nitrate used for any petechial bleeding as necessary. Definitive antifungal treatment options have been reviewed and discussed with the patient. The patient chooses, no pharmaceutical tx - 21833 Nail Reduction Nail Reduction (-27) Trimming o f dystrophic nails performed to reduce/remove overall nail length and girth, by manual and electrical means with use of a nail nipper and/or dremel, to more viable healthy nail plate or bed tissue, any number - G0127 Progress Notes * Janna IYERDOB:[birth year] (68 yo F)Acc No.[id number]:03/08/2024 Progress Note Patient:?Janna IYER Provider:?Yrn Bill DPM :1955???Age:68 Y???Sex:Female D ate:03/08/2024 Address:[address] [place] [address], [place], [id number] Pcp:Jabier Russell Subjective: * Chief Complaints: * [...] ?Exercise: yes, Daily. ?Marital status: single. 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 * Medications:?TakingOmeprazol e 20 MG Capsule Delayed [...] kg. * Examination: ???Ophthalmology Referral: ?DIABETES EYE EXAM?Procedure Performed:?Yes ?Date of Exam Performed?01/29/2024 ?Diabetic Retinopathy Screening:?Yes ?Findings of Diabetic Eye Exam:?no retinopathy?Neurological: ?SENSORY:?Neurological exam demonstrates, reduced light touch sensation, [...] for office visit today.?ORIENTED:?person, place, and time.?FOOT EXAM:?Lower Extremity Neurological Exam performed:?Yes ?Visual exam of foot performed:?Yes ?Date?03/08/2024 ?Footwear Evaluation?Footwear Evaluation performed:?Yes??? Assessment: * Assessment: 1.?Tinea unguium - B35.1???2 [...] use of a nail nipper and/or dremel-type outer diameter grinder tool, to a more viable healthy nail plate or bed tissue 1-5. Silver nitrate used for any petechial bleeding as necessary. Definitive antifungal treatment options have been reviewed and discussed with the patient. The patient chooses, no pharmaceutical tx - 65899.?Keratoma Treatment:?Parring or Cutting of Benign Hyperkeratotic Lesion(s)?(-57) More than 4 Lesions - The Benign hyperkeratotic lesions, as described above were pared, and/or cut utilizing a sterile 15 blade, tissue nippers, and/or dremel - 70408.?Nail Reduction:?Nail Reduction?(-27) Trimming of dystrophic nails performed to reduce/remove overall nail length and girth, by manual and electrical means with use of a nail nipper and/or dremel, to more viable healthy nail plate or bed tissue, any number - G0127.? * Procedure Codes:?G0127 ESTELA ING DYSTROPHIC NAILS ANY #, Modifiers: XS 49621 DEBRIDE NAIL, 1-5, Modifiers: XS 39284 TRIM SKIN LESIONS, OVER 4, Modifiers: XS [...] Bill DPM Date:?2023 Generated for Isamar brand/Benjamin/Dixonitting on:?07/25/2024 03:05 PM EDT History and Physical Notes * HPI (History [...]
--- OUTSIDE RECORDS SUMMARY | 2024-07-25 15:05 | XMS_ITS | Clinical Summary ---
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
--- OUTSIDE RECORDS SUMMARY | 2024-07-25 15:05 | XMS_ITS ---
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 Name Role Phone Jabier Russell Primary Care Provider Neha Roach Unavailable [phone] Yrn Bill Unavailable [phone] Allergies Allergen (clinical drug ingredient) Drug/Non Drug [...] Ordered Date Performed Result Body Sit e 94811-POAQGFS NAIL, 1-5 06/07/2024 N/A 09270-FWKC SKIN LESIONS, OVER 4 06/07/2024 N/A L5553-KNWGQGUQ DYSTROPHIC NAILS ANY # 06/07/2024 N/A Encounters Encounter Location Date Provider Diagnosis [facility] [address] [address] 06/07/2024 Yrn Bill Type 2 diabetes mellitus [...] Treatment Pending Test Test Name Order Date 83384-TZYEGBL NAIL, 1-5 06/07/2024 71887-CSEI SKIN LESIONS, OVER 4 06/07/19 25 O4995-WPBRXYSK DYSTROPHIC NAILS ANY # Next Appt Details Follow Up: prn, Reason: Provider Name:Yrn Bill , 09/10/2024 01:45:00 PM, [address] [place] [address], [id number], Procedure Notes * Category Sub-Category Detail Notes [...] instrumentation by the physician of record - 51722 Debride Nails 1-5 Procedure: Due to the [...] necessary to maintain effective symptomatic relief - 32450 Nail Reduction Nail Reduction (-27) Trimming o [...] * Janna IYERDOB:[birth year] (68 yo F)Acc No.[id number]:06/07/2024 Progress Note Patient:?Janna IYER Provider:?Yrn Bill DPM :1955???Age:68 Y???Sex:Female D ate:06/07/2024 Address:[address] [place] [address], [place], [id number] Pcp:Jabier Russell Subjective: * Chief Complaints: * [...] 7.2 * Examination: ???Ophthalmology Referral: ?DIABETES EYE EXAM?Procedure Performed:?Yes ?Date of Exam Performed?01/29/2024 States next appt soon - September 2024 ?Diabetic Retinopathy Screening:?Yes ?Findings of Diabetic Eye [...] Exam performed:?Yes ?Visual exam of foot performed:?Yes ?Date?06/07/2024 ?Footwear Evaluation?Footwear Evaluation performed:?Yes??? Assessment: * Assessment: [...] necessary to maintain effective symptomatic relief - 15390.?Keratoma Treatment:?Parring or Cutting of Benign Hyperkeratotic Lesion(s)?(-57) [...] instrumentation by the physician of record - 54797.?Nail Reduction:?Nail Reduction?(-27) Trimming of all dystrophic nails [...] T9?), were debrided by the phisician of record to reduce/remove overall nail length and girth, by manual and electrical means with use of a nail nipper and/or dremel, to more viable healthy nail plate or bed tissue - G0127.? * Procedure Codes:?G0127 ESTELA ING DYSTROPHIC NAILS ANY #, Modifiers: XS 09913 DEBRIDE NAIL, 1-5, Modifiers: XS 35481 TRIM SKIN LESIONS, OVER 4, Modifiers: XS [...] Bill DPM Date:?2024 Generated for Isamar brand/Benjamin/Zofia on:?07/25/2024 03:05 PM EDT History and Physical [...] Exam Performed: 01/29/2024 Stat es next appt soon - September 2024 Diabetic Retinopathy Screening:: Yes [...]
--- OUTSIDE RECORDS SUMMARY | 2024-07-25 15:05 | XMS_ITS | Patient Health Record ---
Author Organization [facility] Address [address] [facility] [place] [address] Care Team Providers Care Sports Leadership Instructor Name Role Phone DrewJabier Primary Care Provider Neha Roach Unavailable [phone] Yrn Bill Unavailable [phone] Allergies Allergen (clinical drug ingredient) Drug/Non Drug [...] Problem Acquired hammer toe of right foot (7277974980627347 ) Other hammer toe(s) (acquired), right foot (M20.41) Active confirmed Response to treatment, Improvemen t Problem Acquired hammer toe of left foot (5027228040793078 ) Other hammer toe(s) (acquired), left foot (M20.42) Active confirmed Response to treatment, Improvemen t Problem Polyneuropathy due to type 2 diabetes mellitus (296053374) Type 2 diabetes mellitus 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) Active confirmed Vital Signs Blood pressure diastolic 80 mm Hg 06/07/2024 Height 5ft 7in in 06/07/2024 Blood pressure systolic 123 mm Hg 06/07/2024 Weight 250 lbs 06/07/2024 BMI 39.15 kg/m2 06/07/2024 Procedures Procedure Date Ordered Date Performed Result Body Sit e 70818-VMMGBJU NAIL, 1-5 03/08/2024 N/A 00462-XFAT SKIN LESIONS, OVER 4 03/08/2024 N/A L3087-OZDZRRIF DYSTROPHIC NAILS ANY # 03/08/2024 N/A 34662-UFWKWPC NAIL, 1-5 06/07/2024 N/A 75786-GGHB SKIN LESIONS, OVER 4 06/07/2024 N/A P1082-UIHUIQDH DYSTROPHIC NAILS ANY # 06/07/2024 N/A Encounters Encounter Location Date Provider Diagnosis [facility] [place] [address] [place] [address] 03/08/2024 Yrn Bill Type 2 diabetes mellitus with diabetic polyneuropathy E11.42 ; Tinea unguium B35.1 ; Other hammer toe(s) (acquired), right foot M20.41 and Other hammer toe(s) (acquired), left foot M20.[address] [address] 06/07/2024 Yrn Bill Type 2 diabetes mellitus with diabetic polyneuropathy E11.42 ; Tinea unguium B35.1 ; Other hammer toe(s) (acquired), right foot M20.41 and Other hammer toe(s) (acquired), left foot M20.[address] [address] 01/08/2024 Neha Horne Assessments Encounter Date Diagnosis [...] X ray : Foot, right 3V 12/23/2022 10613-OGOAZWI NAIL, 1-5 03/08/2024 64953-HWXHHJH NAIL, 1-5 06/07/2024 56674-FZAN SKIN LESIONS, OVER 4 06/07/19 72140-YASD SKIN LESIONS, OVER 4 03/08/20 M0947-CCDNAYCV DYSTROPHIC NAILS ANY # I7272-MMEHQSTR DYSTROPHIC NAILS ANY # Next Appt Details Provider Name:Yrn Bill , 09/10/2024 01:45:00 PM, [address] [place], [address], Insurance Providers Payer Name Payer Address Payer Phone Subscriber Number Group Number Insured Name Patient Relationship to Insured Coverage Start Date Coverage End Date BlueCare 65 Medicare [address] [place] [address] [id number] Janna Iyer Self - patient is the insured Medical (General) History Medical History History ICD Code Arthritis CAD (Cholesterol) Depression type II diabetes High blood pressure keloids Reflux ( GERD) Vascular phlebitis (clots) Measles Mumps Chicken pox Bone implants/screws Transfusions Surgical History Surgery Date(Month/Year) TK R+ R 10.4 02/09/16 TK R+ R 9. 03 06/02/2016
--- OUTSIDE RECORDS SUMMARY | 2024-07-25 15:05 | XMS_ITS ---
Author Organization [facility] Address [address] [place] [address] Care Team Providers Care Utility Spray Operator Name Role Phone Jabier Russell Primary Care Provider UnavailNeha Tidwell Unavailable [phone] Yrn Bill Unavailable [phone] Encounters Encounter Location Date Provider Diagnosis [address] [address] 01/09/2024 Yrn Bill Plan Of Treatment Next Appt Details Provider Name:Yrn Bill , 09/10/2024 01:45:00 PM, [address] [place] [address], [address], Progress Notes * SHIREEN, Janna MoniqueDOB:[birth year] (68 yo F)Acc No.[id number]:01/09/2024 Progress Note Patient:?Janna IYER Provider:?Yrn Bill DPM :1955???Age:68 Y???Sex:Female D ate:01/09/2024 Address:[address] [place], [place] [id number] Pcp:Jabier Russell Subjective: * Chief Complaints: * ??? * Medical History:? Objective: * Vitals:? Assessment: Plan: * Treatment: * Images: * The named appointment provid er may or may not be the originator of this progress note, and it is not deemed complete until electronically signed by the appointment provider. Sign off status: Pending * Provider:Sandy Bill DPM Date:?2023 Generated for sIamar brand/Benjamin/Zofia on:?07/25/2024 03:05 PM EDT
== END 2024-07-25 12:29 | disposition home or self-care (01) ==
LOC: HO.HUSH 11:39
PROVIDERS: PCP Internal Medicine; Visit Provider Nurse Practitioner Family
DX: N39.46 Mixed incontinence (principal); D17.9 Benign lipomatous neoplasm, unspecified; Z13.9 Encounter for screening, unspecified
CPT/HCPCS: 99213

== ENCOUNTER → 2024-07-25 11:39 | Outpatient (BNVA) | payer MEDICARE, SELFPAY | PROVIDERS: PCP Internal Medicine; Visit Provider Nurse Practitioner Family | DX: N39.46 Mixed incontinence (principal); N28.9 Disorder of kidney and ureter, unspecified | CPT/HCPCS: 51798; 81003; 99212 ==

== ENCOUNTER 2024-07-25 14:24 | Outpatient (AMB) | payer MEDICARE, SELFPAY ==
[2024-07-25 14:26] VITALS: BP 122/78; PULSE 80; O2SAT 95; BMI 43.5
--- NOTE | 2024-07-25 14:26 | MHC.PC.OV ---
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 Accompanied by: Self / Same As Patient Allergies medroxyprogesterone [Provera] Allergy (Intermediate, Verified 07/25/24 14:27) SKIN PEELING niacin [From NIASPAN EXTENDED-RELEASE] Allergy (Intermediate, Verified 07/25/24 14:27) facial flushing atorvastatin [From Lipitor] Allergy (Mild, Verified 07/25/24 14:27) MUSCLE ACHES, myalgia gemfibrozil [From Lopid] Allergy (Mild, Verified 07/25/24 14:27) MUSCLE ACHES fluconazole [From DIFLUCAN] Allergy (Unknown, Verified 07/25/24 14:27) PER H&P empagliflozin [From Jardiance] Adverse Reaction (Mild, Verified 07/25/24 14:27) urinary incontinence nitroglycerin [From Nitro-Dur] Adverse Reaction (Mild, Verified 07/25/24 14:27) LOW BLOOD PRESSURE ozempic Adverse Reaction (Intermediate, Uncoded 07/25/24 14:27) Headache Medication List - Last Reconciled 07/25/24 by Ayla Pretty PA-C apixaban (Eliquis) 5 mg PO BID blood-glucose meter,continuous (FreeStyle Ara 3 Victoria) As directed blood-glucose sensor (FreeStyle Ara 3 Plus Sensor device) As directed change every 14 days calcium carbonate-vitamin D3 (Calcium 600 + D(3)) 600 mg PO DAILY citalopram 20 mg PO DAILY 90 days hydrochlorothiazide 12.5 mg PO DAILY insulin glargine (Lantus Solostar U-100 Insulin) 54 units subcut BID lisinopril 20 mg PO DAILY 90 days metformin 500 mg PO DAILY 90 days mirabegron ER (Myrbetriq) 25 mg PO DAILY 90 days omeprazole 20 mg PO DAILY pen needle, 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) BID PRN tirzepatide (Mounjaro) 2.5 mg (0.5 mL) subcut QWEEK 28 days vitamin B complex 1 tab PO DAILY Tobacco use date assessed: 07/25/24 Fall risk assessment: No Falls in past year Last assessed Fall Risk: 07/25/24 Dental Screening Dental Screen Date: 07/25/24 Did you have a dental visit in the last 12 months?: Yes Did you have a dental problem in the last 6 months where you did not have access to dental care?: No Was dental information given to patient?: Patient has dentist HPI left arm hurt HPI Details 68-year-old female with past medical history of diabetes mellitus on insulin, diabetic nephropathy, GERD, chronic kidney disease, hypertension, generalized anxiety disorder, fatty liver disease and recurrent DVT last seen 07/09 coming in for acute problem. The patient is presenting with shoulder pain, exacerbated after a fall two years ago and worsened following arm immobilization for hand surgery. The pain, described as aching and constant with associated shooting pain, disrupts sleep and is tender to palpation. The patient's activity level has increased with gym visits, possibly aggravating the shoulder. Family history of arthritis suggests this as a differential, though symptoms also align with a potential rotator cuff issue due to pain during overhead activities. [facility] Medical History Type 2 diabetes mellitus Fatty liver determined by biopsy Urgency incontinence Fatty liver Anxiety and depression Shoulder pain, bilateral Environmental allergies LLL pneumonia Encounter for annual routine gynecological examination Contusion of foot Long-term insulin use Surgical History History of revision of total replacement of right knee joint History of colonoscopy History of total left knee replacement (TKR) History of total right knee replacement (TKR) History of breast biopsy History of tonsillectomy Family History Father Type 2 diabetes mellitus Polymyalgia Mother Cancer of thyroid Sister Breast cancer Sister Leukemia Brother Diabetes mellitus HTN (hypertension) High cholesterol Social History Household Members: None Housing: House Are you a primary career center director to a significant other at home: No Do you presently have visiting nurse or other home services: No Alcohol intake: former Patient Tobacco Use Status: Former Tobacco user Tobacco use type: Cigarette Years Smoked: stopped 1984 e-Cigarette/Vaping Use: Never Used Advance Directives Date on File: 03/05/20 service: No Current occupational status: employed Cognitive needs: No Hearing needs: No Vision needs: Yes Female Reproductive History Menstrual Age of Menarche: 12 Questionnaire PHQ-9 Over the last 2 weeks, how often have you been bothered by any of the following problems? 1. Little interest or pleasure in doing things: not at all 2. Feeling down, depressed, or hopeless: not at all 3. Trouble falling or staying asleep, or sleeping too much: not at all 4. Feeling tired or having little energy: not at all 5. Poor appetite or overeating: not at all 6. Feeling bad about yourself - or that you are a failure or have let yourself or your family down: not at all 7. Trouble concentrating on things, such as reading the newspaper or watching television: not at all 8. Moving or speaking so slowly that other people could have noticed. Or the opposite - being so fidgety or restless that you have been moving around a lot more than usual: not at all 9. Thoughts that you would be better off or of hurting yourself in some way: not at all Total score: 0 Depression Screening Interpretation: Negative Depression Screening Done: Yes 41006 - PHQ-9 Billing: Yes Source: Developed by Drs. Roney Mitchell, Molly Duran, Earl Muhammad and colleagues, with an educational willem from [employer]. Thrive Questionnaire Date Thrive assessed: 07/25/24 I am a: Patient What is your living situation today?: I have a steady place to live Within the past 12 months, did the food you bought not last and you didn't have the money to get more?: Never true Within the past 12 months, did you worry whether your food would run out before you got money to buy more?: Never true Do you have trouble paying for medicines?: No Do you have trouble getting transportation to medical appointments?: No Do you have trouble paying your heating and electricity bill?: No Do you have trouble taking care of your child, family member or friend?: No Do you have trouble with day-to-day activities such as bathing, preparing meals, shopping, managing finances, etc.?: No Are you currently unemployed and looking for a job?: No Are you interested in more education?: No Please select the resources that you would like help with: None Currently or been in a relationship where the following occur: No concerns reported THRIVE Score: 0 AUDIT C Alcohol Use Questionnaire (AUDIT-C) 1. How often do you have a drink containing alcohol?: Never 3. How often do you have six or more drinks on one occasion?: Never Total Score: 0 Score Reviewed/Action Taken: Yes LEX-7 AMB Questionnaire LEX-7 Date ELX - 7 assessed: 07/25/24 Feeling nervous, anxious, or on edge: 0 = Not at all Not being able to stop or control worryin = Not at all Worrying too much about different things: 0 = Not at all Trouble relaxin = Not at all Being so restless that it is hard to sit still: 0 = Not at all Becoming easily annoyed or irritable: 0 = Not at all Feeling afraid as if something awful might happen: 0 = Not at all Total LEX-7 score (0-4 normal; 5-9 mild; 10-14 moderate; 15-21 severe): 0 Source: Developed by Drs. Roney Mitchell, Molly Duran, Earl Muhammad and colleagues, with an educational willem from [employer]. LEX-7 Assessment Billing LEX-7 Assessment Tool: LEX-7 Assessment 98677 Review of Systems Const Denies body aches, Denies chills, Denies fever(s), Denies headache(s) and Denies poor appetite Eyes Reports no additional complaints ENT Denies dizziness and Denies headache(s) Card Denies chest pain, Denies lightheadedness and Denies dyspnea Resp Denies cough and Denies dyspnea GI Reports no additional complaints Reports no additional complaints Musc Details: left shoulder pain radiating into the left bicep Denies abnormal gait Skin/Breast Reports system reviewed and no additional complaints, except as documented Neuro Denies abnormal gait, Denies dizziness and Denies headache(s) Psych Reports no additional complaints Physical exam (Primary Care) Vital Signs: Oxygen Delivery Method Room Air 07/25/24 14:26 Tobacco/Smoking Status: Tobacco use Status Tobacco use date assessed 07/01/24 07/01/24 11:33 Patient Tobacco Use Status Former Tobacco user 07/01/24 11:33 Tobacco use type Cigarette 07/01/24 11:33 e-Cigarette/Vaping Use Never Used 07/01/24 11:33 Depression Screening Interpretation: Negative Thrive Assessment: Date of Thrive Assessment Date Thrive assessed 07/01/24 07/01/24 11:38 Currently or been in a relationship where the following occur: No concerns reported Const General: cooperative, healthy appearing, comfortable and no acute distress Orientation/consciousness: patient oriented x3 HENMT Head: Yes normocephalic Ears: hearing grossly normal bilaterally General nose exam: Normal external nose present Eyes General: appearance normal, both eyes and all related structures Conjunctivae: conjunctivae normal Neck Neck: Yes full ROM and Yes no lymphadenopathy Resp Effort & Inspection: normal respiratory effort Auscultation: clear to auscultation bilaterally, no crackles, no rales, no rhonchi and no wheezes Cardio Rate: regular rate Rhythm: regular rhythm Skin General skin exam: no rashes or lesions noted Neuro General: patient oriented x3 Gait exam (Neuro): Normal gait present Extrem Other: Pain to palpation over anterior aspect of left shoulder without AC joint tenderness. Tenderness to palpation over left humerus. pain with active extension, lateral raise, internal rotation of left shoulder. intact strength sensation and pulses in bilateral upper extremities General: Yes normal to inspection, Yes full ROM and No edema Psych Affect: normal affect Attitude: cooperative Insight: Good insight present (Psych) Judgement: Good judgement present (Psych) Results AMB Urinalysis, Automated UA Leukoctes 0 Rayshawn/uL Last Edit by [employer] on 07/25/24 12:06 UA Nitrite Last Edit by [employer] on 07/25/24 12:06 UA Urobilinogen 0.2 mg/dL Last Edit by [employer] on 07/25/24 12:06 UA Protein 30 mg/dL Last Edit by [employer] on 07/25/24 12:06 UA pH 5.5 Last Edit by [employer] on 07/25/24 12:06 UA Blood 0 Jb/uL Last Edit by [employer] on 07/25/24 12:06 UA Specific [place] 1.015 Last Edit by [employer] on 07/25/24 12:06 UA Ketone Negative Last Edit by [employer] on 07/25/24 12:06 UA Bilirubin 0 mg/dL Last Edit by Ricardo Walters on 07/25/24 12:06 UA Glucose 0 mg/dL Last Edit by Ricardo Walters on 07/25/24 12:06 Coding Level of Care Code Est Pt Level 3 (42250) Diagnoses Left shoulder pain M25.512 Additional Codes LEX-7 Assessment Billing - LEX-7 Assessment Tool: LEX-7 Assessment 96020 ([id number]) PHQ-9 - 13327 - PHQ-9 Billing: Yes ([id number]) Assessment & Plan Assessment & Plan (1) Left shoulder pain: Code(s): M25.512 - Pain in left shoulder Category: Medical Plan: I have decided to perform a shoulder X-ray to evaluate for arthritis, considering the patient's family history and symptomatology. If arthritis is present, consultation with orthopedics for therapeutic intervention is recommended, along with physical therapy. The patient will maintain a modified exercise regimen to manage shoulder discomfort while continuing efforts to enhance weight management and overall health through exercise. I highlighted the current restrictions on pain management due to anticoagulant use and agreed on acetaminophen as the primary option for managing pain. I will contact the patient upon receipt of the X-ray findings to determine the next steps in management. Plan This note was constructed using voice recognition software. While every effort has been made to ensure accuracy and proofer apprentice, still areas may have been included sometimes these areas may affect the content or meeting of the given symptoms. Total time spent caring for the patient today was 20 minutes. This includes time spent before the visit reviewing the chart, time spent during the visit, and time spent after the visit and documentation. Patient was informed and verbally consented to the use of an ambient scribe for clinic note documentation during this visit. Orders: Orders XR humerus RT Today M25.512 - Pain in left shoulder XR shoulder LT min 2V Today M25.512 - Pain in left shoulder
--- OUTSIDE RECORDS SUMMARY | 2024-07-25 18:14 | XMS_ITS | Clinical Summary ---
Author Organization [facility], Address [address] [place] [address] [place] [address] Phone Care Team Providers Care Car Designer Name Role Phone Ricco Hill MD Primary Care Provider [phone] Allergies Active Allergy Reactions Criticality Noted Date [...] Name Priority Date/Time Associated Diagnosis Comments LAB OCCUPATIONAL SAFETY SPECIALIST Routine 09/25/2017 12:00 AM EDT from Last 3 Months or Most Recently Relevant to Health Maintenance Results * Lab Coffee Urn Attendant (09/25/2017 12:00 AM EDT) Carbon Dioxide (CO2) [...] mg/dL KCTMA 09/25/2017 us Kctma Conversion LAB [id number] LICITED RESULTS Final Result KCTMA from Last 3 Months or Most Recently Relevant to Health Maintenance Insurance [facility] Care Teams Car Designer Relationship Specialty Start Date End Date Ricco Hill MD [address] [facility] [place] [address] PCP - General 03/19/19
== END 2024-07-25 15:09 | disposition home or self-care (01) ==
LOC: HO.HMCH 14:24
PROVIDERS: PCP Internal Medicine
DX: M25.512 Pain in left shoulder (principal)

== ENCOUNTER 2024-07-25 15:06 | Outpatient (REF) | payer MEDICARE, SELFPAY ==
--- NOTE | ~2024-07-25 | XR_ITS ---
CLINICAL HISTORY: M25.512 - Pain in left shoulder Two views of the left humerus. COMPARISON: None FINDINGS: Humerus appears intact. Humeral head appears appropriately seated in the glenoid. Visualized portions of the left shoulder and elbow are unremarkable. No radiopaque foreign body. IMPRESSION: 1. No radiographic evidence of acute injury to the left humerus. This document has been electronically signed by: Rob Javier MD on 07/26/2024 13:42:12
--- NOTE | ~2024-07-25 | XR_ITS ---
CLINICAL HISTORY: M25.512 - Pain in left shoulder Four views of the left shoulder. COMPARISON: None FINDINGS: Proximal left humerus, the left scapula, and the left clavicle appear intact. Humeral head is appropriately seated in the glenoid. Mild hypertrophy of the left acromioclavicular joint. Visualized portions of the left lung are clear. IMPRESSION: 1. No radiographic evidence of acute injury to the left shoulder. 2. Mild acromioclavicular joint degenerative changes. This document has been electronically signed by: Rob Javier MD on 07/26/2024 13:55:43
--- OUTSIDE RECORDS SUMMARY | 2024-07-25 18:51 | XMS_ITS | Clinical Summary ---
Author Organization [facility], Address [address] [place] [address] [place] [address] Phone Care Team Providers Care Gravure Press Operator Name Role Phone Ricco Hill MD Primary Care Provider [phone] Allergies Active Allergy Reactions Criticality Noted Date [...] Name Priority Date/Time Associated Diagnosis Comments LAB SEC ACCOUNTANT Routine 09/25/2017 12:00 AM EDT from Last 3 Months or Most Recently Relevant to Health Maintenance Results * Lab Supervisor Grading (09/25/2017 12:00 AM EDT) Carbon Dioxide (CO2) [...] mg/dL KCTMA 09/25/2017 us Kctma Conversion LAB [id number] LICITED RESULTS Final Result KCTMA from Last 3 Months or Most Recently Relevant to Health Maintenance Insurance [facility] Care Teams Gravure Press Operator Relationship Specialty Start Date End Date Ricco Hill MD [address] [facility] [place] [address] PCP - General 03/19/19
== END 2024-07-25 15:07 | disposition home or self-care (01) ==
LOC: HO.XRAY 15:06
DX: M25.512 Pain in left shoulder (principal); E11.22 Type 2 diabetes mellitus with diabetic chronic kidney disease; I12.9 Hypertensive chronic kidney disease with stage 1 through stage 4 chronic kidney disease, or unspecified chronic kidney disease; N18.9 Chronic kidney disease, unspecified; Z79.4 Long term (current) use of insulin; N39.46 Mixed incontinence; N28.9 Disorder of kidney and ureter, unspecified
CPT/HCPCS: 51798; 73030; 73060; 81003; 96127; 99212

== ENCOUNTER → 2024-07-25 15:12 | Outpatient (BNV) | payer MEDICARE, SELFPAY | PROVIDERS: Visit Provider Radiology Diagnostic Radiology | DX: M25.512 Pain in left shoulder (principal) | CPT/HCPCS: 73030; 73060 ==

== ENCOUNTER 2024-08-08 08:53 | Outpatient (AMB) | payer MEDICARE, SELFPAY ==
--- NOTE | 2024-08-08 09:00 | A.OFFVIS_ITS ---
Intake Visit Reasons: US follow up Child Care Associate: Child Care Associate Present Allergies medroxyprogesterone [Provera] Allergy (Intermediate, Verified 08/08/24 09:00) SKIN PEELING niacin [From NIASPAN EXTENDED-RELEASE] Allergy (Intermediate, Verified 08/08/24 09:00) facial flushing atorvastatin [From Lipitor] Allergy (Mild, Verified 08/08/24 09:00) MUSCLE ACHES, myalgia gemfibrozil [From Lopid] Allergy (Mild, Verified 08/08/24 09:00) MUSCLE ACHES fluconazole [From DIFLUCAN] Allergy (Unknown, Verified 08/08/24 09:00) PER H&P empagliflozin [From Jardiance] Adverse Reaction (Mild, Verified 08/08/24 09:00) urinary incontinence nitroglycerin [From Nitro-Dur] Adverse Reaction (Mild, Verified 08/08/24 09:00) LOW BLOOD PRESSURE ozempic Adverse Reaction (Intermediate, Uncoded 07/25/24 14:27) Headache Is last menstrual period known: Yes HPI Comments Details: Patient is here today for a follow up pelvic ultrasound. She had an episode several months ago of vaginal bleeding after initiation of Jardiance and 1 time after intimacy small amount of blood when wiping, has not been sexually active since. No further bleeding noted, she denies any pelvic pain or other symptoms. [facility] Medical History Type 2 diabetes mellitus Fatty liver determined by biopsy Urgency incontinence Fatty liver Anxiety and depression Shoulder pain, bilateral Environmental allergies LLL pneumonia Encounter for annual routine gynecological examination Contusion of foot Long-term insulin use Surgical History History of revision of total replacement of right knee joint History of colonoscopy History of total left knee replacement (TKR) History of total right knee replacement (TKR) History of breast biopsy History of tonsillectomy Family History Father Type 2 diabetes mellitus Polymyalgia Mother Cancer of thyroid Sister Breast cancer Sister Leukemia Brother Diabetes mellitus HTN (hypertension) High cholesterol Social History Household Members: None Housing: House Are you a primary rn primary care to a significant other at home: No Do you presently have visiting nurse or other home services: No Alcohol intake: former Patient Tobacco Use Status: Former Tobacco user Tobacco use type: Cigarette Years Smoked: stopped 1984 e-Cigarette/Vaping Use: Never Used Advance Directives Date on File: 03/05/20 service: No Current occupational status: employed Cognitive needs: No Hearing needs: No Vision needs: Yes Female Reproductive History Menstrual Age of Menarche: 12 Review of Systems Const All systems reviewed & are unremarkable except as noted in HPI and below Endo Reports no additional complaints Physical Exam Const General: cooperative, healthy appearing and no acute distress Psych Appearance: well kempt Attitude: cooperative Thought process: Normal thought process present Results Reviewed Results Reviewed: [address] [address] Ultrasound Report Signed Patient: Janna Iyer MR#: [id number] : 1955 Acct:[id number] Age/Sex: 68 / F ADM Date: 07/05/24 Loc: HO.US Attending Dr: Elizabeth Shearer CNM Ordering Physician: Elizabeth Shearer CNM Date of Service: 07/05/24 Procedure(s): US pelvic and transvaginal Accession Number(s): [id number] cc: Elizabeth Shearer CNM; Jabier Russell MD~ EXAMINATION: US PELVIS CLINICAL INFORMATION: Postmenopausal bleed COMPARISON: October 30, 2011 is not available on PACS TECHNIQUE: Ultrasound of the pelvis is performed using both transabdominal and transvaginal transducers along with Doppler. Transvaginal imaging is performed due to inadequate visualization transabdominally. FINDINGS: Uterus: The uterus is anteverted and measures 7 x 2 x 4 cm. The double wall endometrial thickness is 2 mm. The uterus is smooth in contour and has normal myometrial echogenicity. No visible fibroid. Adnexa: The right ovary is not identified.. The left ovary is present with flow on color Doppler interrogation. No free fluid in the cul-de-sac. Left ovary measures 2 x 2 x 2 cm. Volume: 2 cc There is a 1.3 cm anechoic structure without flow on color Doppler interrogation. US/US pelvic and transvaginal IMPRESSION: Normal endometrial stripe. Right ovary is not identified. 1.3 cm cystic lesion, left ovary Electronically signed by: Corbin Sullivan MD 07/08/2024 08:56 AM EST Dictated By: Corbin Mckeon MD Signed By: <Electronically signed by Corbin Puente MD in OV> 07/08/24 0856 DD/ 1039 TD/TT: 07/05/24 1103 Grants Officer: Assessment & Plan Assessment & Plan (1) Postmenopausal bleeding: Code(s): N95.0 - Postmenopausal bleeding Plan Discussed: Ultrasound findings endometrial lining 2 mm, left ovarian cyst. IMPRESSION: Normal endometrial stripe. Right ovary is not identified. 1.3 cm cystic lesion, left ovary Advised if she has an episode of bleeding again advised to call to schedule to an endometrial biopsy. Call if there is any left-sided pelvic pain. Reviewed changes in menopause with atrophy and risks of vaginal tearing, use of Replens moisturizer and a lubricant if indicated. The patient expressed understanding and agreement with the plan of care. All of her questions and concerns were addressed to the best of my ability. Annual exam scheduled March 2025. This note is constructed using voice recognition software. While every effort has been made to ensure accuracy, electrical development engineer errors may have been included. Coding Level of Care Code Est Pt Level 3 (52807) Diagnoses Postmenopausal bleeding N95.0
--- OUTSIDE RECORDS SUMMARY | 2024-08-08 09:45 | XMS_ITS | Patient Health Record ---
Author Organization [facility] Address [address] [facility] [place] [address] Care Team Providers Care Videogame Tester Name Role Phone DrewJabier Primary Care Provider Neha Roach Unavailable [phone] Yrn Bill Unavailable [phone] Allergies Allergen (clinical drug ingredient) Drug/Non Drug [...] Problem Acquired hammer toe of right foot (3959904943475556 ) Other hammer toe(s) (acquired), right foot (M20.41) Active confirmed Response to treatment, Improvemen t Problem Acquired hammer toe of left foot (2533176301413212 ) Other hammer toe(s) (acquired), left foot (M20.42) Active confirmed Response to treatment, Improvemen t Problem Polyneuropathy due to type 2 diabetes mellitus (157738954) Type 2 diabetes mellitus 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) Active confirmed Vital Signs Blood pressure diastolic 80 mm Hg 06/07/2024 Height 5ft 7in in 06/07/2024 Blood pressure systolic 123 mm Hg 06/07/2024 Weight 250 lbs 06/07/2024 BMI 39.15 kg/m2 06/07/2024 Procedures Procedure Date Ordered Date Performed Result Body Sit e 67995-QXQCQED NAIL, 1-5 03/08/2024 N/A 09726-QCOS SKIN LESIONS, OVER 4 03/08/2024 N/A U8963-CPXODJBN DYSTROPHIC NAILS ANY # 03/08/2024 N/A 62509-ZYVGYFQ NAIL, 1-5 06/07/2024 N/A 04674-NDPF SKIN LESIONS, OVER 4 06/07/2024 N/A B8311-TVMNABRP DYSTROPHIC NAILS ANY # 06/07/2024 N/A Encounters Encounter Location Date Provider Diagnosis [facility] [place] [address] [place] [address] 03/08/2024 Yrn Bill Type 2 diabetes mellitus with diabetic polyneuropathy E11.42 ; Tinea unguium B35.1 ; Other hammer toe(s) (acquired), right foot M20.41 and Other hammer toe(s) (acquired), left foot M20.[address] [address] 06/07/2024 Yrn Bill Type 2 diabetes mellitus with diabetic polyneuropathy E11.42 ; Tinea unguium B35.1 ; Other hammer toe(s) (acquired), right foot M20.41 and Other hammer toe(s) (acquired), left foot M20.[address] [address] 01/08/2024 Neha Horne Assessments Encounter Date Diagnosis [...] X ray : Foot, right 3V 12/23/2022 22508-TTNEPQO NAIL, 1-5 03/08/2024 78648-NLTWGNT NAIL, 1-5 06/07/2024 70932-RCPE SKIN LESIONS, OVER 4 06/07/19 02958-EOHY SKIN LESIONS, OVER 4 03/08/20 W5381-VVPUCVMU DYSTROPHIC NAILS ANY # G1497-PWQZRNZD DYSTROPHIC NAILS ANY # Next Appt Details Provider Name:Yrn Bill , 09/10/2024 01:45:00 PM, [address] [place], [address], Insurance Providers Payer Name Payer Address Payer Phone Subscriber Number Group Number Insured Name Patient Relationship to Insured Coverage Start Date Coverage End Date BlueCare 65 Medicare Preferred [address] [place] [address] [id number] Janna Iyer Self - patient is the insured Medical (General) History Medical History History ICD Code Arthritis CAD (Cholesterol) Depression type II diabetes High blood pressure keloids Reflux ( GERD) Vascular phlebitis (clots) Measles Mumps Chicken pox Bone implants/screws Transfusions Surgical History Surgery Date(Month/Year) TK R+ R 10.4 02/09/16 TK R+ R 9. 03 06/02/2016
--- OUTSIDE RECORDS SUMMARY | 2024-08-08 09:46 | XMS_ITS ---
Author Organization [facility] Address [address] [place] [address] Care Team Providers Care Auto Repair Shop Manager Name Role Phone Jabier Russell Primary Care Provider Neha Roach Unavailable [phone] Yrn Bill Unavailable [phone] Allergies Allergen (clinical drug ingredient) Drug/Non Drug [...] Polyneuropathy due to type 2 diabetes mellitus (322053355) Type 2 diabetes mellitus 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) Active confirmed Problem Acquired hammer toe of right foot (2380656116813924 ) Other hammer toe(s) (acquired), right foot (M20.41) Active confirmed Response to treatment, Improvemen t Problem Acquired hammer toe of left foot (7321354742510680 ) Other hammer toe(s) (acquired), left foot (M20.42) Active confirmed Response to treatment, Improvemen t Vital Signs Height 5ft 7in in 03/08/2024 Weight 250 lbs 03/08/2024 BMI 39.15 kg/m2 03/08/2024 Blood pressure systolic 123 mm Hg 03/08/20 24 Blood pressure diastolic 70 mm Hg 024 Procedures Procedure Date Ordered Date Performed Result Body Sit e 74257-JMKEATM NAIL, 1-5 03/08/2024 N/A 31172-SMCP SKIN LESIONS, OVER 4 03/08/2024 N/A Z9074-HDEGLYHW DYSTROPHIC NAILS ANY # 03/08/2024 N/A Encounters Encounter Location Date Provider Diagnosis [facility] [place] [address] [place] [address] 03/08/2024 Yrn Bill Type 2 diabetes mellitus [...] INSTRUCTIONS.pdf) Pending Test Test Name Order Date 22985-VVKSNZE NAIL, 1-5 03/08/2024 82715-IZNL SKIN LESIONS, OVER 4 03/08/20 24 A6682-VGACKJSY DYSTROPHIC NAILS ANY # Next Appt Details Follow Up: prn, Reason: Provider Name:Yrn Bill , 09/10/2024 01:45:00 PM, [address] [place] [address], [phone], Procedure Notes * Category Sub-Category Detail Notes Keratoma Treatment Parring or Cutting o f Benign Hyperkeratotic Lesion(s) (-57) More than 4 Lesions - The Benign hyperkeratotic lesions, as described above were pared, and/or cut utilizing a sterile 15 blade, tissue nippers, and/or dremel - 11329 Debride Nails 1-5 Procedure: Performance of this nail treatment by a nonprofessional would put this patients foot and overall health at risk. Therefore, nail debridement was performed extensively to reduce/remove overall nail length, girth, thickness, subungual debris, and necrotic tissue, by manual and/or electrical means through the use of a nail nipper and/or dremel-type refractory grinder operator, to a more viable healthy nail plate or bed tissue 1-5. Silver nitrate used for any petechial bleeding as necessary. Definitive antifungal treatment options have been reviewed and discussed with the patient. The patient chooses, no pharmaceutical tx - 38408 Nail Reduction Nail Reduction (-27) Trimming o f dystrophic nails performed to reduce/remove overall nail length and girth, by manual and electrical means with use of a nail nipper and/or dremel, to more viable healthy nail plate or bed tissue, any number - G0127 Progress Notes * Janna IYERDOB:[birth year] (68 yo F)Acc No.[id number]:03/08/2024 Progress Note Patient:?Janna IYER Provider:?Yrn Bill DPM :1955???Age:68 Y???Sex:Female D ate:03/08/2024 Address:[address] [place] [address], [place], [id number] Pcp:Jabier Russell Subjective: * Chief Complaints: * [...] ?Exercise: yes, Daily. ?Marital status: single. ?Occupation: [employer], [employer]. * Medications:?TakingOmeprazol e 20 MG Capsule Delayed [...] use of a nail nipper and/or dremel-type refractory grinder operator, to a more viable healthy nail plate or bed tissue 1-5. Silver nitrate used for any petechial bleeding as necessary. Definitive antifungal treatment options have been reviewed and discussed with the patient. The patient chooses, no pharmaceutical tx - 14545.?Keratoma Treatment:?Parring or Cutting of Benign Hyperkeratotic Lesion(s)?(-57) More than 4 Lesions - The Benign hyperkeratotic lesions, as described above were pared, and/or cut utilizing a sterile 15 blade, tissue nippers, and/or dremel - 41331.?Nail Reduction:?Nail Reduction?(-27) Trimming of dystrophic nails performed to reduce/remove overall nail length and girth, by manual and electrical means with use of a nail nipper and/or dremel, to more viable healthy nail plate or bed tissue, any number - G0127.? * Procedure Codes:?G0127 ESTELA ING DYSTROPHIC NAILS ANY #, Modifiers: XS 27681 DEBRIDE NAIL, 1-5, Modifiers: XS 78906 TRIM SKIN LESIONS, OVER 4, Modifiers: XS [...] Provider:?Yrn Bill DPM Date:?2023 Generated for Isamar brand/Benjamin/Priscillasmitting on:?08/08/2024 09:45 AM EDT History and Physical Notes * HPI [...]
--- OUTSIDE RECORDS SUMMARY | 2024-08-08 09:46 | XMS_ITS | Clinical Summary ---
Author Organization [facility], Address [address] [place] [address] [place] [address] Phone Care Team Providers Care Community Pharmacist Name Role Phone Ricco Hill MD Primary Care Provider [phone] Allergies Active Allergy Reactions Criticality Noted Date [...] Name Priority Date/Time Associated Diagnosis Comments LAB LICENSED SALES ASSISTANT Routine 09/25/2017 12:00 AM EDT from Last 3 Months or Most Recently Relevant to Health Maintenance Results * Lab English Tutor (09/25/2017 12:00 AM EDT) Carbon Dioxide (CO2) [...] mg/dL KCTMA 09/25/2017 us Kctma Conversion LAB [id number] LICITED RESULTS Final Result KCTMA from Last 3 Months or Most Recently Relevant to Health Maintenance Insurance [facility] Care Teams Community Pharmacist Relationship Specialty Start Date End Date Ricco Hill MD [address] [facility] [place] [address] PCP - General 03/19/19
--- OUTSIDE RECORDS SUMMARY | 2024-08-08 09:46 | XMS_ITS ---
Author Organization [facility] Address [address] [place] [address] Care Team Providers Care Food Clerk Name Role Phone Jabier Russell Primary Care Provider UnavailNeha Tidwell Unavailable [phone] Yrn Bill Unavailable [phone] Encounters Encounter Location Date Provider Diagnosis [address] [address] 01/09/2024 Yrn Bill Plan Of Treatment Next Appt Details Provider Name:Yrn Bill , 09/10/2024 01:45:00 PM, [address] [place] [address], [address], Progress Notes * SHIREEN, Janna MonqiueDOB:[birth year] (68 yo F)Acc No.[id number]:01/09/2024 Progress Note Patient:?Janna IYER Provider:?Yrn Bill DPM :1955???Age:68 Y???Sex:Female D ate:01/09/2024 Address:[address] [place], [place] [address]-[id number] Pcp:Jabier Russell Subjective: * Chief Complaints: * ??? * Medical History:? Objective: * Vitals:? Assessment: Plan: * Treatment: * Images: * The named appointment provid er may or may not be the originator of this progress note, and it is not deemed complete until electronically signed by the appointment provider. Sign off status: Pending * Provider:Sandy Bill DPM Date:?2023 Generated for Isamar brand/Benjamin/Zofia on:?08/08/2024 09:45 AM EDT
--- OUTSIDE RECORDS SUMMARY | 2024-08-08 09:46 | XMS_ITS ---
[facility] Organization [facility] Address [address] [place] [address] Care Team Providers Care Land Agent Name Role Phone Jabier Russell Primary Care Provider Neha Roach Unavailable [phone] Yrn Bill Unavailable [phone] Allergies Allergen (clinical drug ingredient) Drug/Non Drug [...] Ordered Date Performed Result Body Sit e 73462-LFLDZYY NAIL, 1-5 06/07/2024 N/A 91760-YSGM SKIN LESIONS, OVER 4 06/07/2024 N/A T4722-DEDUUYID DYSTROPHIC NAILS ANY # 06/07/2024 N/A Encounters Encounter Location Date Provider Diagnosis [facility] [address] [address] 06/07/2024 Yrn Bill Type 2 diabetes mellitus [...] Treatment Pending Test Test Name Order Date 95071-TXRSKBD NAIL, 1-5 06/07/2024 71306-VDFT SKIN LESIONS, OVER 4 06/07/19 25 U7647-VWYZPUWM DYSTROPHIC NAILS ANY # Next Appt Details Follow Up: prn, Reason: Provider Name:Yrn Bill , 09/10/2024 01:45:00 PM, [address] [place] [address], [address], Procedure Notes * Category Sub-Category Detail Notes [...] instrumentation by the physician of record - 47908 Debride Nails 1-5 Procedure: Due to the [...] necessary to maintain effective symptomatic relief - 73776 Nail Reduction Nail Reduction (-27) Trimming o [...] * Janna IYERDOB:[birth year] (68 yo F)Acc No.[id number]:06/07/2024 Progress Note Patient:?Janna IYER Provider:?Yrn Bill DPM :1955???Age:68 Y???Sex:Female D ate:06/07/2024 Address:[address] [place] [address], [facility] [id number] Pcp:Jabier Russell Subjective: * Chief Complaints: * [...] necessary to maintain effective symptomatic relief - 19785.?Keratoma Treatment:?Parring or Cutting of Benign Hyperkeratotic Lesion(s)?(-57) [...] instrumentation by the physician of record - 31955.?Nail Reduction:?Nail Reduction?(-27) Trimming of all dystrophic nails [...] ING DYSTROPHIC NAILS ANY #, Modifiers: XS 90284 DEBRIDE NAIL, 1-5, Modifiers: XS 26081 TRIM SKIN LESIONS, OVER 4, Modifiers: XS [...] Bill DPM Date:?2024 Generated for Isamar brand/Benjamin/Zofia on:?08/08/2024 09:45 AM EDT History and Physical [...]
== END 2024-08-08 09:29 | disposition home or self-care (01) ==
LOC: HO.HWS 08:53
PROVIDERS: Visit Provider Advanced Practice Midwife
DX: N95.0 Postmenopausal bleeding (principal)
CPT/HCPCS: 99213

== ENCOUNTER → 2024-08-08 08:53 | Outpatient (BNVA) | payer MEDICARE, SELFPAY | PROVIDERS: Visit Provider Advanced Practice Midwife | DX: N95.0 Postmenopausal bleeding (principal) | CPT/HCPCS: 99212 ==

== ENCOUNTER 2024-09-10 10:23 | Outpatient (AMB) | payer MEDICARE, SELFPAY ==
--- NOTE | 2024-09-10 07:33 | A.OFFVIS_ITS ---
Vital Signs 09/10/24 10:28 Height 5 ft 7 in Weight 274 lb 4.081 oz BMI 42.9 BP 120/64 Blood Pressure Location Lt brachial Position Sitting Pulse 70 Pulse Source Pulse Oximeter Pulse Oximetry (%) 95 Oxygen Delivery Method Room Air Intake Visit Reasons: DM Intake Note: Patient presents today for a follow-up on Type 2 Diabetes Mellitus: Last Diabetic eye exam was on: 07/14/2023 [facility] Most recent HbA1c: 6.7%, 07/01/2024 Random Glucose- 154 mg/dL Quilting Supervisor Required: No Accompanied by: Self / Same As Patient Allergies medroxyprogesterone [Provera] Allergy (Intermediate, Verified 09/10/24 10:34) SKIN PEELING niacin [From NIASPAN EXTENDED-RELEASE] Allergy (Intermediate, Verified 09/10/24 10:34) facial flushing atorvastatin [From Lipitor] Allergy (Mild, Verified 09/10/24 10:34) MUSCLE ACHES, myalgia gemfibrozil [From Lopid] Allergy (Mild, Verified 09/10/24 10:34) MUSCLE ACHES fluconazole [From DIFLUCAN] Allergy (Unknown, Verified 09/10/24 10:34) PER H&P empagliflozin [From Jardiance] Adverse Reaction (Mild, Verified 09/10/24 10:34) urinary incontinence nitroglycerin [From Nitro-Dur] Adverse Reaction (Mild, Verified 09/10/24 10:34) LOW BLOOD PRESSURE ozempic Adverse Reaction (Intermediate, Uncoded 09/10/24 10:34) Headache Medication List - Last Reconciled 09/10/24 by Noemy Fair NP apixaban (Eliquis) 5 mg PO BID blood-glucose sensor (FreeStyle Ara 3 Plus Sensor device) As directed change every 14 days blood-glucose,facility coordinator,cont (FreeStyle Ara 3 Fowler) As directed calcium carbonate-vitamin D3 (Calcium 600 + D(3)) 600 mg PO DAILY citalopram 20 mg PO DAILY 90 days hydrochlorothiazide 12.5 mg PO DAILY lisinopril 20 mg PO DAILY 90 days metformin 500 mg PO DAILY 90 days mirabegron ER (Myrbetriq) 50 mg PO DAILY omeprazole 20 mg PO DAILY pen needle, 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) BID PRN tirzepatide (Mounjaro) 5 mg (0.5 mL) subcut QWEEK 84 days vitamin B complex 1 tab PO DAILY HPI Comments Details: Patient is a 68-year-old female with a significant past medical history of prior DVT, on chronic anticoagulation, CKD, diabetic nephropathy, long-term insulin use and hypertension presenting today for a follow-up regarding her diabetes. She was last seen 06/11/24. Most recent A1c 6.7% on 07/01/24. She was dx with dm 30 years ago. A1C 7.2% 03/28/24 down from previous 7.6% and 8% Ozempic caused headache and nausea Trial of Jardiance 2023 and had urinary symptoms: Incontinence Did not tolerate glyburide Mounjaro has not been increased secondary to previous side effects on higher doses of other GLp-1 agonists. She has been steadily losing weight on Mounjaro. Current medication: Lantus 48 units bid Mounjaro 2.5mg Metformin 500mg daily Dexcom average glucose: 153 14 day continuous glucose monitor report reviewed Glucose Managment indicator 7 % Days with CGM data 96 % TIme in ranges: 2 % very high (above 250) 25 % high ?(181-250) 73 % in range ?(70-180] 0 % low (69-55) 0 % ?very low (below 54) Interpretation: -Mother had thyroid cancer and metastatic abdominal cancer (not sure if involving pancreas). She was able to discuss her mother's history with her sister in the thyroid cancer she had was papillary thyroid cancer not medullary cancer No retinopathy Last eye exam over due is scheduled with Dr. Martin at [facility] for the spring. complications include nephropathy and neuropathy Recently seen by Podiatry and has new shoes and inserts. She is working on shaving down callus on the plantar aspect of her foot near the heel. Has nephropathy: 04/26/2024 EGFR 57 12/27/2023 microalbumin 163 she is followed by Nephrology and is on Del inhibitor she has f/u in one year Recent dexa: normal bone density. Did not tolerate statins or gemfibrozil or niacin. No recent lipid profile Recent liver elastography: enlarged liver, fatty, no advanced disease. GI consult was placed but GI addressed colonscopy screening, [facility] Medical History Type 2 diabetes mellitus Fatty liver determined by biopsy Urgency incontinence Fatty liver Anxiety and depression Shoulder pain, bilateral Environmental allergies LLL pneumonia Encounter for annual routine gynecological examination Contusion of foot Long-term insulin use Surgical History History of revision of total replacement of right knee joint History of colonoscopy History of total left knee replacement (TKR) History of total right knee replacement (TKR) History of breast biopsy History of tonsillectomy Family History Father Type 2 diabetes mellitus Polymyalgia Mother Cancer of thyroid Sister Breast cancer Sister Leukemia Brother Diabetes mellitus HTN (hypertension) High cholesterol Social History Household Members: None Housing: House Are you a primary progressive care unit registered nurse to a significant other at home: No Do you presently have visiting nurse or other home services: No Alcohol intake: former Patient Tobacco Use Status: Former Tobacco user Tobacco use type: Cigarette Years Smoked: stopped 1984 e-Cigarette/Vaping Use: Never Used Advance Directives Date on File: 03/05/20 service: No Current occupational status: employed Cognitive needs: No Hearing needs: No Vision needs: Yes Female Reproductive History Menstrual Age of Menarche: 12 Physical Exam Vital Signs: Last Vital Signs Pulse 70 09/10/24 10:28 BP 120/64 09/10/24 10:28 Pulse Ox 95 09/10/24 10:28 Oxygen Delivery Method Room Air 09/10/24 10:28 BMI result Body Mass Index 42.9 Const Other: Absence of Cushingoid features. Absence of acromegalic features. Neck exam reveals nl size thyroid about 15 gms. No thyroid nodules palpable. Heart S1 S2, Reg R/R. No M/R G. Skin exam reveals absence of vitiligo or acanthosis nigricans. Visual exam of foot performed. No ulcerations or open lesions. No inter digit maceration or fissuring. No onychomycosis, flat callous on heel Sensation intact to monofilament exam. Vibratory sensation is normal with 128 Hz tuning fork. Office Procedures Glucose Monitoring Details Details: see hpi 73512 - Glucose monitoring, continuous-physician I&R Procedure code (CPT) selection complete Results Reviewed Results Reviewed: Laboratory Last Values Glucose (Clinic) 154 mg/dL (60-115) H 09/10/24 10:36 Assessment & Plan Assessment & Plan (1) Type 2 diabetes mellitus: Code(s): E11.9 - Type 2 diabetes mellitus without complications Category: Medical Qualifiers: Diabetes mellitus complication detail: with nephropathy Diabetes mellitus complication status: with kidney complications Diabetes mellitus retirement insulin use: with retirement use Qualified Code(s): E11.21 - Type 2 diabetes mellitus with diabetic nephropathy; Z79.4 - ocean transportation intermediary (current) use of insulin Plan: 68-year-old type 2 diabetic with nephropathy followed by Nephrology and neuropathy with improved glycemic control. A1c 7.2%. We will increase Mounjaro to 5 mg. She was advised to watch for side effects with the increased dosage and let me know if it was a problem. She will reduce her insulin by 4 units She is to follow up with Nephrology in 1 year and has podiatry scheduled for today The patient had an opportunity to ask questions regarding treatment plan. The patient expressed understanding and agreement with the above treatment plan. The patient is aware they should contact our office by phone for worsening glucose readings or for any low blood sugars which may warrant a change in diabetes medication. Compliance is encouraged with medications and any followup testing/consults which may have been ordered. Orders: Orders Liver Fibrosis Pnl Today K76.0 - Fatty (change of) liver, not elsewhere classified AMB Glucose Monitoring Today E11.9 - Type 2 diabetes mellitus without complications Medications: New insulin glargine (Lantus Solostar U-100 Insulin) 44 units (0.44 mL) subcut BID 90 days 82 mL 3RF tirzepatide (Mounjaro) 5 mg (0.5 mL) subcut QWEEK 84 days 6 mL 3RF Discontinued tirzepatide (Mounjaro) for 4 weeks Discontinued Reason: Doctor's Order 2.5 mg (0.5 mL) subcut QWEEK 28 days 2 mL 11RF Patient Instructions: The patient was counseled to achieve a target A1C of 7% (154 avg). Fasting blood sugars should be 90-130 in the morning and less than 180 two hours after meals. Reviewed the relationship between poor diabetic control and the development of complications. Check your feet daily looking for any signs of infection, drainage, redness, ulceration and seek medical attention if this occurs. Break in shoes gradually and do not wear open-toed shoes or walk stocking footed or barefooted. Carry a sugar source at all times Coding Level of Care Code Est Pt Level 4 (59465) Complex EM visit Add On G2211 Diagnoses Type 2 diabetes mellitus with diabetic nephropathy, with long-term current use of insulin E11.21; Z79.4 Diabetes mellitus complication detail: with nephropathy Diabetes mellitus complication status: with kidney complications Diabetes mellitus retirement insulin use: with assistant terminal manager use CPT Codes Details - CPT: 95322 - Glucose monitoring, continuous-physician I&R ([id number]) Time Spent (min) 30 Comment Time spent reviewing labs/provider notes, glucose,sensor reports, face to face, chart doc
[2024-09-10 10:28] VITALS: BP 120/64; PULSE 70; O2SAT 95; BMI 42.9
[2024-09-10 10:41] LABS: Glucose, Whole Blood 154 mg/dL (60-115)
--- OUTSIDE RECORDS SUMMARY | 2024-09-10 11:55 | XMS_ITS ---
Author Organization [facility] Address [address] [place] [address] Care Team Providers Care Pipe Smoker Machine Operator Name Role Phone Jabier Russell Primary Care Provider UnavailNeha Tidwell Unavailable [phone] Yrn Bill Unavailable [phone] Encounters Encounter Location Date Provider Diagnosis [address] [address] 09/10/2024 Yrn Bill Plan Of Treatment Next Appt Details Provider Name:Yrn Bill , 09/10/2024 01:45:00 PM, [address] [place] [address], [phone], Progress Notes * SHIREEN, Janna MoniqueDOB:[birth year] (68 yo F)Acc No.[id number]:09/10/2024 Progress Note Patient:?Janna IYER Provider:?Yrn Bill DPM :1955???Age:68 Y???Sex:Female D ate:09/10/2024 Address:[address] [place], [place] [id number] Pcp:Jabier Russell Subjective: * Chief Complaints: * ??? * Medical History:? Objective: * Vitals:? Assessment: Plan: * Treatment: * Images: * The named appointment provid er may or may not be the originator of this progress note, and it is not deemed complete until electronically signed by the appointment provider. Sign off status: Pending * Provider:Sandy Bill DPM Date:?2024 Generated for Isamar brand/Benjamin/Zofia on:?09/10/2024 11:55 AM EDT
--- OUTSIDE RECORDS SUMMARY | 2024-09-10 11:56 | XMS_ITS | Clinical Summary ---
Author Organization [facility], Address [address] [place] [address] [place] [address] Phone Care Team Providers Care Graphics Editor Name Role Phone Ricco Hill MD Primary Care Provider [phone] Allergies Active Allergy Reactions Criticality Noted Date [...] Colorectal Cancer Screening: Sigmoidoscopy 2006 Pneumococcal Vaccine: 50+ Years (2 of 2 - PCV) 09/18/2013 09/18/2012 Diabetes: Hemoglobin A1C 07/07/2020 018, 09/25/2017, 05/01/2017 Diabetes: Ophthalmology Exam 07/07/2020 Diabetes: Pedal Pulse Checked 07/07/2020 Diabetes: Sensory Foot Exam 07/07/2020 Diabetes: Visual Foot Exam 07/07/2020 Influenza Vaccine (Season Ended) 2025 Pneumococcal Vaccine: Peds ( 0 to 5 Years) and At-Risk Patients (6 to 49 Years) Discontinued 09/18/2012 Hepatitis B Vaccine Aged Out No longe r eligible based on patient's age to complete this topic Procedures Procedure Name Priority Date/Time Associated Diagnosis Comments LAB CERTIFIED EMERGENCY VEHICLE TECHNICIAN Routine 09/25/2017 12:00 AM EDT from Last 3 Months or Most Recently Relevant to Health Maintenance Results * Lab Tmd Teacher Assistant (09/25/2017 12:00 AM EDT) Carbon Dioxide (CO2) [...] 4.3 2.5 - 4.5 mg/dL [facility] 09/25/2017 [facility] Conversion LAB [id number] LICITED RESULTS Final Result [facility] from Last 3 Months or Most Recently Relevant to Health Maintenance Insurance [facility] Care Teams Graphics Editor Relationship Specialty Start Date End Date Ricco Hill MD [address] [place] [address] PCP - General 03/19/19
--- OUTSIDE RECORDS SUMMARY | 2024-09-10 11:56 | XMS_ITS ---
Author Organization [facility] Address [address] [facility] [facility] [place] [address] Care Team Providers Care Software Database Architect Name Role Phone Jabier Russell Primary Care Provider Neha Roach Unavailable [phone] Yrn Bill Unavailable [phone] Allergies Allergen (clinical drug ingredient) Drug/Non Drug [...] Polyneuropathy due to type 2 diabetes mellitus (868743075) Type 2 diabetes mellitus 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) Active confirmed Problem Acquired hammer toe of right foot (4926590484011747 ) Other hammer toe(s) (acquired), right foot (M20.41) Active confirmed Response to treatment, Improvemen t Problem Acquired hammer toe of left foot (3420624534020135 ) Other hammer toe(s) (acquired), left foot (M20.42) Active confirmed Response to treatment, Improvemen t Vital Signs Height 5ft 7in in 03/08/2024 Weight 250 lbs 03/08/2024 BMI 39.15 kg/m2 03/08/2024 Blood pressure systolic 123 mm Hg 03/08/20 24 Blood pressure diastolic 70 mm Hg 024 Procedures Procedure Date Ordered Date Performed Result Body Sit e 86469-SWPGMBN NAIL, 1-5 03/08/2024 N/A 17197-ENIX SKIN LESIONS, OVER 4 03/08/2024 N/A Q9099-MRXBQKLM DYSTROPHIC NAILS ANY # 03/08/2024 N/A Encounters Encounter Location Date Provider Diagnosis [facility] [address] [place] [address] 03/08/2024 Yrn Bill Type 2 diabetes mellitus [...] INSTRUCTIONS.pdf) Pending Test Test Name Order Date 10063-MASYAYU NAIL, 1-5 03/08/2024 26165-BHEE SKIN LESIONS, OVER 4 03/08/20 24 W8343-CYMXKQBU DYSTROPHIC NAILS ANY # Next Appt Details Follow Up: prn, Reason: Provider Name:Yrn Bill , 09/10/2024 01:45:00 PM, [address] [place] [address], [phone], Procedure Notes * Category Sub-Category Detail Notes Keratoma Treatment Parring or Cutting o f Benign Hyperkeratotic Lesion(s) (-57) More than 4 Lesions - The Benign hyperkeratotic lesions, as described above were pared, and/or cut utilizing a sterile 15 blade, tissue nippers, and/or dremel - 26343 Debride Nails 1-5 Procedure: Performance of this nail treatment by a nonprofessional would put this patients foot and overall health at risk. Therefore, nail debridement was performed extensively to reduce/remove overall nail length, girth, thickness, subungual debris, and necrotic tissue, by manual and/or electrical means through the use of a nail nipper and/or dremel-type gear and spline grinder, to a more viable healthy nail plate or bed tissue 1-5. Silver nitrate used for any petechial bleeding as necessary. Definitive antifungal treatment options have been reviewed and discussed with the patient. The patient chooses, no pharmaceutical tx - 41626 Nail Reduction Nail Reduction (-27) Trimming o f dystrophic nails performed to reduce/remove overall nail length and girth, by manual and electrical means with use of a nail nipper and/or dremel, to more viable healthy nail plate or bed tissue, any number - G0127 Progress Notes * Janna IYERDOB:[birth year] (68 yo F)Acc No.[id number]:03/08/2024 Progress Note Patient:?Janna IYER Provider:?Yrn Bill DPM :1955???Age:68 Y???Sex:Female D ate:03/08/2024 Address:[address] [place] [address], [place], [id number] Pcp:Jabier Russell Subjective: * Chief Complaints: * [...] ?Exercise: yes, Daily. ?Marital status: single. ?Occupation: [employer], [employer]. * Medications:?TakingOmeprazol e 20 MG Capsule Delayed [...] use of a nail nipper and/or dremel-type gear and spline grinder, to a more viable healthy nail plate or bed tissue 1-5. Silver nitrate used for any petechial bleeding as necessary. Definitive antifungal treatment options have been reviewed and discussed with the patient. The patient chooses, no pharmaceutical tx - 19323.?Keratoma Treatment:?Parring or Cutting of Benign Hyperkeratotic Lesion(s)?(-57) More than 4 Lesions - The Benign hyperkeratotic lesions, as described above were pared, and/or cut utilizing a sterile 15 blade, tissue nippers, and/or dremel - 39933.?Nail Reduction:?Nail Reduction?(-27) Trimming of dystrophic nails performed to reduce/remove overall nail length and girth, by manual and electrical means with use of a nail nipper and/or dremel, to more viable healthy nail plate or bed tissue, any number - G0127.? * Procedure Codes:?G0127 ESTELA ING DYSTROPHIC NAILS ANY #, Modifiers: XS 74384 DEBRIDE NAIL, 1-5, Modifiers: XS 86784 TRIM SKIN LESIONS, OVER 4, Modifiers: XS [...] Bill DPM Date:?2023 Generated for Isamar brand/Benjamin/Priscillasmitting on:?09/10/2024 11:55 AM EDT History and Physical Notes * [...] , B/L , Heel(s) , B/L Orthopedic FOOTWEAR EVALUATION: worn, non-s upportive, shoe gear properties exacerbate patient's foot/toe deformity [...]
--- OUTSIDE RECORDS SUMMARY | 2024-09-10 11:56 | XMS_ITS ---
Author Organization [facility] Address [address] [place] [address] Care Team Providers Care Shear Assembler Name Role Phone Jabier Russell Primary Care Provider Neha Roach Unavailable [phone] Yrn Bill Unavailable [phone] Allergies Allergen (clinical drug ingredient) Drug/Non Drug [...] Ordered Date Performed Result Body Sit e 03331-YYESPLV NAIL, 1-5 06/07/2024 N/A 54816-BCYH SKIN LESIONS, OVER 4 06/07/2024 N/A K3393-DFYLYIOK DYSTROPHIC NAILS ANY # 06/07/2024 N/A Encounters Encounter Location Date Provider Diagnosis [facility] [address] [address] 06/07/2024 Yrn Bill Type 2 diabetes mellitus [...] Treatment Pending Test Test Name Order Date 54436-GCOHFHF NAIL, 1-5 06/07/2024 42351-FQZV SKIN LESIONS, OVER 4 06/07/19 25 O4621-DOKJKINY DYSTROPHIC NAILS ANY # Next Appt Details Follow Up: prn, Reason: Provider Name:Yrn Bill , 09/10/2024 01:45:00 PM, [address] [place] [address], [phone], Procedure Notes * Category Sub-Category Detail Notes [...] instrumentation by the physician of record - 48366 Debride Nails 1-5 Procedure: Due to the [...] necessary to maintain effective symptomatic relief - 58593 Nail Reduction Nail Reduction (-27) Trimming o [...] * Janna IYERDOB:[birth year] (68 yo F)Acc No.[id number]:06/07/2024 Progress Note Patient:?Janna IYER Provider:?Yrn Bill DPM :1955???Age:68 Y???Sex:Female D ate:06/07/2024 Address:[address] [place] [address], [facility] [id number] Pcp:Jabier Russell Subjective: * Chief Complaints: * [...] necessary to maintain effective symptomatic relief - 57713.?Keratoma Treatment:?Parring or Cutting of Benign Hyperkeratotic Lesion(s)?(-57) [...] instrumentation by the physician of record - 46617.?Nail Reduction:?Nail Reduction?(-27) Trimming of all dystrophic nails [...] ING DYSTROPHIC NAILS ANY #, Modifiers: XS 56584 DEBRIDE NAIL, 1-5, Modifiers: XS 14037 TRIM SKIN LESIONS, OVER 4, Modifiers: XS [...] DPM Date:?2024 Generated for Isamar brand/Benjamin/Zofia on:?09/10/2024 11:56 AM EDT History and Physical Notes * [...] B/L , Plantar, Heel(s) , B/L Orthopedic FOOTWEAR EVALUATION: good condit ion, exhibit proper fit and accommodation for pedal [...]
--- OUTSIDE RECORDS SUMMARY | 2024-09-10 11:56 | XMS_ITS | Patient Health Record ---
Author Organization [facility] Address [address] [facility] [place] [address] Care Team Providers Care Gas Station Cashier Name Role Phone DrewJabier Primary Care Provider Neha Roach Unavailable [phone] Yrn Bill Unavailable [phone] Allergies Allergen (clinical drug ingredient) Drug/Non Drug [...] Problem Acquired hammer toe of right foot (9456507637007004 ) Other hammer toe(s) (acquired), right foot (M20.41) Active confirmed Response to treatment, Improvemen t Problem Acquired hammer toe of left foot (2833774983691030 ) Other hammer toe(s) (acquired), left foot (M20.42) Active confirmed Response to treatment, Improvemen t Problem Polyneuropathy due to type 2 diabetes mellitus (426168022) Type 2 diabetes mellitus 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) Active confirmed Vital Signs Blood pressure diastolic 80 mm Hg 06/07/2024 Height 5ft 7in in 06/07/2024 Blood pressure systolic 123 mm Hg 06/07/2024 Weight 250 lbs 06/07/2024 BMI 39.15 kg/m2 06/07/2024 Procedures Procedure Date Ordered Date Performed Result Body Sit e 41378-UQMOESP NAIL, 1-5 03/08/2024 N/A 23474-ZQAP SKIN LESIONS, OVER 4 03/08/2024 N/A F5730-LGOTZZGG DYSTROPHIC NAILS ANY # 03/08/2024 N/A 23509-ZPTFDWL NAIL, 1-5 06/07/2024 N/A 46660-XULA SKIN LESIONS, OVER 4 06/07/2024 N/A K4771-IFJYHHEU DYSTROPHIC NAILS ANY # 06/07/2024 N/A Encounters Encounter Location Date Provider Diagnosis [facility] [address] [place] [address] 03/08/2024 Yrn Bill Type 2 diabetes mellitus with diabetic polyneuropathy E11.42 ; Tinea unguium B35.1 ; Other hammer toe(s) (acquired), right foot M20.41 and Other hammer toe(s) (acquired), left foot M20.[address] [address] 06/07/2024 Yrn Bill Type 2 diabetes mellitus with diabetic polyneuropathy E11.42 ; Tinea unguium B35.1 ; Other hammer toe(s) (acquired), right foot M20.41 and Other hammer toe(s) (acquired), left foot M20.[address] [address] 01/08/2024 Neha Horne Assessments Encounter Date Diagnosis [...] X ray : Foot, right 3V 12/23/2022 10700-IVMZJUF NAIL, 1-5 03/08/2024 25351-HJRXIGN NAIL, 1-5 06/07/2024 73008-SRAB SKIN LESIONS, OVER 4 06/07/19 42138-WYVM SKIN LESIONS, OVER 4 03/08/20 I5290-SXSMNUFN DYSTROPHIC NAILS ANY # X7272-HEDYAGDY DYSTROPHIC NAILS ANY # Next Appt Details Provider Name:Yrn Bill , 09/10/2024 01:45:00 PM, [address] [place], [address], Insurance Providers Payer Name Payer Address Payer Phone Subscriber Number Group Number Insured Name Patient Relationship to Insured Coverage Start Date Coverage End Date Blue[employer] 65 Medicare [address] [place] [address] [id number] Janna Iyer Self - patient is the insured Medical (General) History Medical History History ICD Code Arthritis CAD (Cholesterol) Depression type II diabetes High blood pressure keloids Reflux ( GERD) Vascular phlebitis (clots) Measles Mumps Chicken pox Bone implants/screws Transfusions Surgical History Surgery Date(Month/Year) TK R+ R 10.4 02/09/16 TK R+ R 9. 03 06/02/2016
== END 2024-09-10 11:02 | disposition home or self-care (01) ==
LOC: HO.ENCR 10:23
PROVIDERS: PCP Internal Medicine; Visit Provider Nurse Practitioner Adult Health
DX: E11.21 Type 2 diabetes mellitus with diabetic nephropathy (principal); Z79.4 Long term (current) use of insulin
CPT/HCPCS: 95251; 99214; G2211

== ENCOUNTER 2024-09-10 11:06 | Outpatient (REF) | payer MEDICARE, SELFPAY ==
--- OUTSIDE RECORDS SUMMARY | 2024-09-10 12:59 | XMS_ITS | Clinical Summary ---
Author Organization [facility], Address [address] [place] [address] [place] [address] Phone Care Team Providers Care Video Game Repair Technician Name Role Phone Ricco Hill MD Primary Care Provider [phone] Allergies Active Allergy Reactions Criticality Noted Date [...] Name Priority Date/Time Associated Diagnosis Comments LAB ENGINEERING TECHNICAL ANALYST Routine 09/25/2017 12:00 AM EDT from Last 3 Months or Most Recently Relevant to Health Maintenance Results * Lab Oracle Endeca Consultant (09/25/2017 12:00 AM EDT) Carbon Dioxide (CO2) [...] 4.5 mg/dL KCTMA 09/25/2017 [facility] Conversion LAB [id number]-[id number] LICITED RESULTS Final Result KCTMA from Last 3 Months or Most Recently Relevant to Health Maintenance Insurance [facility] Care Teams Video Game Repair Technician Relationship Specialty Start Date End Date Ricco Hill MD [address] [place] [address] PCP - General 03/19/19
[2024-09-10 14:44] LABS: Cholesterol 193 mg/dL (<200); HDL Cholesterol 29 mg/dL (>40); LDL Cholesterol Calculated 109 mg/dL (<100); Triglycerides 278 mg/dL (<150)
[2024-09-14 18:23] LABS: FIB-ALT 19 U/L (6-29); FIB-Alpha-2-Macroglobulin 274 mg/dL (106-279); FIB-Apolipoprotein A1 95 mg/dL (101-198); FIB-GGT 18 U/L (3-65); FIB-Haptoglobin 109 mg/dL (43-212); Liver Fibrosis Score 0.63; Liver Fibrosis Stage F3; Nec Inflam Act Grade A0; Nec Inflam Act Score 0.12; Reference ID 5467369
== END 2024-09-10 11:07 | disposition home or self-care (01) ==
LOC: HO.10HDL 11:06
PROVIDERS: Visit Provider Nurse Practitioner Adult Health
DX: K76.0 Fatty (change of) liver, not elsewhere classified (principal); E11.21 Type 2 diabetes mellitus with diabetic nephropathy; Z79.4 Long term (current) use of insulin; Z00.00 Encounter for general adult medical examination without abnormal findings
CPT/HCPCS: 36415; 80061; 81596; 82947; 99212

== ENCOUNTER 2024-09-23 12:55 | Outpatient (REF) | payer MEDICARE, SELFPAY ==
--- NOTE | ~2024-09-23 | XR_ITS ---
EXAMINATION: XR HIP, RIGHT CLINICAL INFORMATION: M25.551 - Pain in right hip COMPARISON: None available. TECHNIQUE: Two views of the right hip. FINDINGS: Sclerosis at the articular surface of the right acetabulum and asymmetric joint space narrowing right coxofemoral joint. No acute cortical disruption or malalignment. Patient's large body habitus. XR/XR hip RT min 2V IMPRESSION: Mild to moderate osteoarthrosis, right hip. Electronically signed by: Corbin Sullivan MD 09/23/2024 02:22 PM EDT
--- OUTSIDE RECORDS SUMMARY | 2024-09-23 14:02 | XMS_ITS | Clinical Summary ---
Author Organization [facility], Address [address] [place] [address] [place] [address] Phone Care Team Providers Care Senior Technical Support Analyst Name Role Phone Ricco Hill MD Primary Care Provider [phone] Allergies Active Allergy Reactions Criticality Noted Date [...] Name Priority Date/Time Associated Diagnosis Comments LAB WASTEWATER OPERATOR Routine 09/25/2017 12:00 AM EDT from Last 3 Months or Most Recently Relevant to Health Maintenance Results * Lab Parking Station Attendant (09/25/2017 12:00 AM EDT) Carbon Dioxide [...] 4.5 mg/dL [facility] 09/25/2017 [facility] Conversion LAB [id number] LICITED RESULTS Final Result [facility] from Last 3 Months or Most Recently Relevant to Health Maintenance Insurance [facility] Care Teams Senior Technical Support Analyst Relationship Specialty Start Date End Date Ricco Hill MD [address] [place] [address] PCP - General 03/19/19
== END 2024-09-23 12:56 | disposition home or self-care (01) ==
LOC: HO.XRAY 12:55
PROVIDERS: PCP Internal Medicine
DX: M25.551 Pain in right hip (principal); E11.21 Type 2 diabetes mellitus with diabetic nephropathy; Z79.4 Long term (current) use of insulin
CPT/HCPCS: 73502; 83036; 99212

== ENCOUNTER 2024-09-23 12:55 | Outpatient (AMB) | payer MEDICARE, SELFPAY ==
--- NOTE | 2024-09-23 13:07 | A.OFFPC_ITS ---
Vital Signs 09/23/24 13:09 Height 5 ft 7 in Weight 271 lb 8 oz BMI 42.5 BP 128/70 Blood Pressure Location Lt brachial Position Sitting Pulse 89 Pulse Source Pulse Oximeter Temp 97.1 F Temp Source Temporal Artery Scan Pulse Oximetry (%) 94 Oxygen Delivery Method Room Air Intake Visit Reasons: rt hip pain Intake Note: Patient is here to follow up on Right hip pain. Labor Service Representative Required: No Venipuncturist: Not Required per policy Accompanied by: Self / Same As Patient Allergies medroxyprogesterone [Provera] Allergy (Intermediate, Verified 09/23/24 13:13) SKIN PEELING niacin [From NIASPAN EXTENDED-RELEASE] Allergy (Intermediate, Verified 09/23/24 13:13) facial flushing atorvastatin [From Lipitor] Allergy (Mild, Verified 09/23/24 13:13) MUSCLE ACHES, myalgia gemfibrozil [From Lopid] Allergy (Mild, Verified 09/23/24 13:13) MUSCLE ACHES fluconazole [From DIFLUCAN] Allergy (Unknown, Verified 09/23/24 13:13) PER H&P empagliflozin [From Jardiance] Adverse Reaction (Mild, Verified 09/23/24 13:13) urinary incontinence nitroglycerin [From Nitro-Dur] Adverse Reaction (Mild, Verified 09/23/24 13:13) LOW BLOOD PRESSURE ozempic Adverse Reaction (Intermediate, Uncoded 09/23/24 13:13) Headache Medication List - Last Reconciled 09/23/24 by VALENTÍN Horowitz apixaban (Eliquis) 5 mg PO BID Divina Reid U-100 Insulin (insulin glargine) 44 units (0.44 mL) subcut BID 90 days NS blood-glucose sensor (FreeStyle Ara 3 Plus Sensor device) As directed change every 14 days blood-glucose,conductor freight,cont (FreeStyle Ara 3 [place]) As directed calcium carbonate-vitamin D3 (Calcium 600 + D(3)) 600 mg PO DAILY citalopram 20 mg PO DAILY 90 days hydrochlorothiazide 12.5 mg PO DAILY lisinopril 20 mg PO DAILY 90 days metformin 500 mg PO DAILY 90 days mirabegron ER (Myrbetriq) 50 mg PO DAILY omeprazole 20 mg PO DAILY pen needle, 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) BID PRN tirzepatide (Mounjaro) 5 mg (0.5 mL) subcut QWEEK 84 days vitamin B complex 1 tab PO DAILY Tobacco use date assessed: 09/23/24 Fall risk assessment: 1 Fall in past year Last assessed Fall Risk: 09/23/24 Dental Screening Dental Screen Date: 07/25/24 HPI rt hip pain HPI Details Patient is a 68-year-old female with significant past medical history of type 2 diabetes, mixed urinary incontinence, age-related osteoporosis without current pathological fracture, asthma and generalized anxiety disorder Presenting with right hip pain which she has experienced for about a month. She describes the pain as an ache, localized primarily to her hip and pelvic regions, occasionally strong when stimulated by certain activities like bending and quick twisting motions. The patient has noticed the pain is absent during treadmill exercises but can be exacerbated by bicycle rides, suggesting muscle involvement. Although the pain has not yet radiated beyond the pelvis, she remains cautious, especially at work, where physical demands could aggravate her condition or possibly lead to a fall due to a lack of support. The patient?s medical history includes osteoarthritis with no past diagnosis specific to the lower body. Prior arthritis treatments have focused on the hands and shoulders. She occasionally experiences aches but denies numbness/tingling. Family history suggests a differential diagnosis of hip versus pelvic issues, as her sister underwent hip surgery. The patient has not observed any alleviation with her current use of arthritis cream, and her focus remains identifying the nature of her pain to tailor future interventions and possibly prevent complications like fractures. [facility] Medical History Type 2 diabetes mellitus Fatty liver determined by biopsy Urgency incontinence Fatty liver Anxiety and depression Shoulder pain, bilateral Environmental allergies LLL pneumonia Encounter for annual routine gynecological examination Contusion of foot Long-term insulin use Surgical History History of revision of total replacement of right knee joint History of colonoscopy History of total left knee replacement (TKR) History of total right knee replacement (TKR) History of breast biopsy History of tonsillectomy Family History Father Type 2 diabetes mellitus Polymyalgia Mother Cancer of thyroid Sister Breast cancer Sister Leukemia Brother Diabetes mellitus HTN (hypertension) High cholesterol Social History Household Members: None Housing: House Are you a primary resident care manager to a significant other at home: No Do you presently have visiting nurse or other home services: No Alcohol intake: former Patient Tobacco Use Status: Former Tobacco user Tobacco use type: Cigarette Years Smoked: stopped 1984 e-Cigarette/Vaping Use: Never Used Advance Directives Date on File: 03/05/20 service: No Current occupational status: employed Cognitive needs: No Hearing needs: No Vision needs: Yes Female Reproductive History Menstrual Age of Menarche: 12 Questionnaire PHQ-9 Over the last 2 weeks, how often have you been bothered by any of the following problems? 1. Little interest or pleasure in doing things: more than half the days 2. Feeling down, depressed, or hopeless: nearly every day 3. Trouble falling or staying asleep, or sleeping too much: several days 4. Feeling tired or having little energy: not at all 5. Poor appetite or overeating: not at all 6. Feeling bad about yourself - or that you are a failure or have let yourself or your family down: not at all 7. Trouble concentrating on things, such as reading the newspaper or watching television: not at all 8. Moving or speaking so slowly that other people could have noticed. Or the opposite - being so fidgety or restless that you have been moving around a lot more than usual: not at all 9. Thoughts that you would be better off or of hurting yourself in some way: not at all Total score: 6 Depression Screening Interpretation: Positive Depression Screening Done: Yes Source: Developed by Drs. Roney Mitchell, Molly Duran, Earl Muhammad and colleagues, with an educational willem from [employer]. Thrive Questionnaire Date Thrive assessed: 07/25/24 I am a: Patient What is your living situation today?: I have a steady place to live Within the past 12 months, did the food you bought not last and you didn't have the money to get more?: Never true Within the past 12 months, did you worry whether your food would run out before you got money to buy more?: Never true Do you have trouble paying for medicines?: No Do you have trouble getting transportation to medical appointments?: No Do you have trouble paying your heating and electricity bill?: No Do you have trouble taking care of your child, family member or friend?: No Do you have trouble with day-to-day activities such as bathing, preparing meals, shopping, managing finances, etc.?: No Are you currently unemployed and looking for a job?: No Are you interested in more education?: No Please select the resources that you would like help with: None Currently or been in a relationship where the following occur: No concerns reported THRIVE Score: 0 AUDIT C Alcohol Use Questionnaire (AUDIT-C) 1. How often do you have a drink containing alcohol?: Never Total Score: 0 LEX-7 AMB Questionnaire LEX-7 Date LEX - 7 assessed: 09/23/24 Feeling nervous, anxious, or on edge: 1 = Several days Not being able to stop or control worryin = Not at all Worrying too much about different things: 0 = Not at all Trouble relaxin = Not at all Being so restless that it is hard to sit still: 0 = Not at all Becoming easily annoyed or irritable: 0 = Not at all Feeling afraid as if something awful might happen: 0 = Not at all Total LEX-7 score (0-4 normal; 5-9 mild; 10-14 moderate; 15-21 severe): 1 Source: Developed by Drs. Roney Mitchell, Molly Duran, Earl Muhammad and colleagues, with an educational willem from [employer]. Review of Systems Const Denies weakness Eyes Denies loss of vision ENT Reports no additional complaints Card Denies chest pain, Denies leg edema and Denies lightheadedness Resp Denies cough, Denies hemoptysis and Denies wheezing Musc Denies arthralgias (Right hip) Neuro Denies Abnormal speech present, Denies loss of vision and Denies weakness Bernard/Lymph Denies easy bleeding and Denies easy bruising Aller/Immun Denies wheezing Physical exam (Primary Care) Vital Signs: Last Vital Signs Temp 97.1 F 09/23/24 13:09 Pulse 89 09/23/24 13:09 BP 128/70 09/23/24 13:09 Pulse Ox 94 09/23/24 13:09 Oxygen Delivery Method Room Air 09/23/24 13:09 BMI result Body Mass Index 42.5 Tobacco/Smoking Status: Tobacco use Status Tobacco use date assessed 09/23/24 09/23/24 13:12 Patient Tobacco Use Status Former Tobacco user 09/23/24 13:12 Tobacco use type Cigarette 09/23/24 13:12 e-Cigarette/Vaping Use Never Used 09/23/24 13:12 PHQ-9: PHQ-9 Score PHQ-9: Total score 6 09/23/24 13:16 Depression Screening Interpretation: Positive Thrive Assessment: Date of Thrive Assessment Date Thrive assessed 07/25/24 09/23/24 13:12 Currently or been in a relationship where the following occur: No concerns reported Const General: healthy appearing, no acute distress, alert and awake Nutritional Appearance: well nourished Orientation/consciousness: oriented to person, oriented to place and oriented to time HENMT Ears: external ears normal General nose exam: Normal external nose present Eyes Conjunctivae: conjunctivae normal Sclerae: sclerae normal Pupils: Equal, round and reactive pupils present Neck Neck: Yes no lymphadenopathy Thyroid: Thyroid normal Resp Effort & Inspection: normal respiratory effort and not tachypneic Auscultation: no crackles, no rales, no rhonchi and no wheezes Cardio Rate: regular rate Rhythm: regular rhythm Heart sounds: no murmurs and normal S1 and S2 General: Yes no CVA tenderness Back/Spine/Pelvis Back: no CVA tenderness Neuro General: oriented to person, oriented to place and oriented to time Cranial nerves: Yes Equal, round and reactive pupils present Speech: No Abnormal speech present Gait exam (Neuro): Normal gait present Extrem Right upper extremity: full ROM Left upper extremity: full ROM Right lower extremity: full ROM and hip/thigh Details: abnormal ROM Details: pain with active ROM during; no tenderness; no edema Left lower extremity: full ROM; no edema Results AMB Hemoglobin A1c AMB Hemoglobin A1c 6.7 % Last Edit by MELISSA Cutler on 09/23/24 13:43 Results Reviewed Results Reviewed: Laboratory Last Values Hgb A1c (Clinic) 6.7 % (4.0-6.0) H 09/23/24 13:07 Coding Level of Care Code Est Pt Level 3 (28528) Diagnoses Right hip pain M25.551 Type 2 diabetes mellitus with diabetic nephropathy, with long-term current use of insulin E11.21; Z79.4 Diabetes mellitus shelter insulin use: with termite control servicer use Diabetes mellitus complication status: with kidney complications Diabetes mellitus complication detail: with nephropathy Time Spent (min) 29 Assessment & Plan Assessment & Plan (1) Right hip pain: Code(s): M25.551 - Pain in right hip Category: Medical Plan: Right hip x-ray in order to further evaluate. The patient wants to wait until resulted to make further decisions (2) Type 2 diabetes mellitus: Code(s): E11.9 - Type 2 diabetes mellitus without complications Category: Medical Qualifiers: Diabetes mellitus termite control servicer insulin use: with shelter use Diabetes mellitus complication status: with kidney complications Diabetes mellitus complication detail: with nephropathy Qualified Code(s): E11.21 - Type 2 diabetes mellitus with diabetic nephropathy; Z79.4 - custodial (current) use of insulin Plan: A1c within goal, continue current treatment Plan Right hip xray ordered, the patient wants to hold off and PT evaluation until imaging Orders: Orders AMB Hemoglobin A1c Today E11.21 - Type 2 diabetes mellitus with diabetic nephropathy, Z79.4 - custodial (current) use of insulin XR hip RT min 2V Today M25.551 - Pain in right hip
[2024-09-23 13:09] VITALS: BP 128/70; PULSE 89; TEMP 36.2; O2SAT 94; BMI 42.5
--- OUTSIDE RECORDS SUMMARY | 2024-09-23 13:14 | XMS_ITS ---
Author Organization [facility] Address [address] [place] [address] Care Team Providers Care Spot Sprayer Name Role Phone Jabier Russell Primary Care Provider Neha Roach Unavailable [phone] Yrn Bill Unavailable [phone] Allergies Allergen (clinical drug ingredient) Drug/Non Drug [...] Polyneuropathy due to type 2 diabetes mellitus (412805133) Type 2 diabetes mellitus 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) Active confirmed Problem Acquired hammer toe of right foot (4381545336865956 ) Other hammer toe(s) (acquired), right foot (M20.41) Active confirmed Response to treatment, Improvemen t Problem Acquired hammer toe of left foot (5193772474340927 ) Other hammer toe(s) (acquired), left foot (M20.42) Active confirmed Response to treatment, Improvemen t Vital Signs Height 5ft 7in in 03/08/2024 Weight 250 lbs 03/08/2024 BMI 39.15 kg/m2 03/08/2024 Blood pressure systolic 123 mm Hg 03/08/20 24 Blood pressure diastolic 70 mm Hg 024 Procedures Procedure Date Ordered Date Performed Result Body Sit e 22102-QNUJCVY NAIL, 1-5 03/08/2024 N/A 77341-XKIC SKIN LESIONS, OVER 4 03/08/2024 N/A F0437-GQLXPLRS DYSTROPHIC NAILS ANY # 03/08/2024 N/A Encounters Encounter Location Date Provider Diagnosis [facility] [place] [address] 03/08/2024 Yrn Bill Type 2 diabetes mellitus [...] INSTRUCTIONS.pdf) Pending Test Test Name Order Date 44915-PXEUEUM NAIL, 1-5 03/08/2024 90765-NRUZ SKIN LESIONS, OVER 4 03/08/20 24 V6691-OHHTCZKF DYSTROPHIC NAILS ANY # Next Appt Details Follow Up: prn, Reason: Provider Name:Yrn Bill , 12/13/2024 12:15:00 PM, [address] [place] [address], [phone], Procedure Notes * Category Sub-Category Detail Notes Keratoma Treatment Parring or Cutting o f Benign Hyperkeratotic Lesion(s) (-57) More than 4 Lesions - The Benign hyperkeratotic lesions, as described above were pared, and/or cut utilizing a sterile 15 blade, tissue nippers, and/or dremel - 84155 Debride Nails 1-5 Procedure: Performance of this nail treatment by a nonprofessional would put this patients foot and overall health at risk. Therefore, nail debridement was performed extensively to reduce/remove overall nail length, girth, thickness, subungual debris, and necrotic tissue, by manual and/or electrical means through the use of a nail nipper and/or dremel-type rotary surface grinder, to a more viable healthy nail plate or bed tissue 1-5. Silver nitrate used for any petechial bleeding as necessary. Definitive antifungal treatment options have been reviewed and discussed with the patient. The patient chooses, no pharmaceutical tx - 55136 Nail Reduction Nail Reduction (-27) Trimming o f dystrophic nails performed to reduce/remove overall nail length and girth, by manual and electrical means with use of a nail nipper and/or dremel, to more viable healthy nail plate or bed tissue, any number - G0127 Progress Notes * Janna IYERDOB:[birth year] (68 yo F)Acc No.[id number]:03/08/2024 Progress Note Patient:?Janna IYER Provider:?Yrn Bill DPM :1955???Age:68 Y???Sex:Female D ate:03/08/2024 Address:[address] [place] [address], [place], [id number] Pcp:Jabier Russell Subjective: * Chief Complaints: * [...] ?Exercise: yes, Daily. ?Marital status: single. 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 * Medications:?TakingOmeprazol e 20 MG Capsule Delayed [...] use of a nail nipper and/or dremel-type rotary surface grinder, to a more viable healthy nail plate or bed tissue 1-5. Silver nitrate used for any petechial bleeding as necessary. Definitive antifungal treatment options have been reviewed and discussed with the patient. The patient chooses, no pharmaceutical tx - 08813.?Keratoma Treatment:?Parring or Cutting of Benign Hyperkeratotic Lesion(s)?(-57) More than 4 Lesions - The Benign hyperkeratotic lesions, as described above were pared, and/or cut utilizing a sterile 15 blade, tissue nippers, and/or dremel - 22229.?Nail Reduction:?Nail Reduction?(-27) Trimming of dystrophic nails performed to reduce/remove overall nail length and girth, by manual and electrical means with use of a nail nipper and/or dremel, to more viable healthy nail plate or bed tissue, any number - G0127.? * Procedure Codes:?G0127 ESTELA ING DYSTROPHIC NAILS ANY #, Modifiers: XS 10018 DEBRIDE NAIL, 1-5, Modifiers: XS 46003 TRIM SKIN LESIONS, OVER 4, Modifiers: XS [...] Bill DPM Date:?2023 Generated for Isamar brand/Benjamin/Priscillasmitting on:?09/23/2024 01:13 PM EDT History and Physical Notes * [...]
--- OUTSIDE RECORDS SUMMARY | 2024-09-23 13:14 | XMS_ITS | Clinical Summary ---
Author Organization [facility], Address [address] [place] [address] [place] [address] Phone Care Team Providers Care Design Assistant Name Role Phone Ricco Hill MD Primary Care Provider [phone] Allergies Active Allergy Reactions Criticality Noted Date [...] Name Priority Date/Time Associated Diagnosis Comments LAB ADJUNCT PHYSICAL EDUCATION INSTRUCTOR Routine 09/25/2017 12:00 AM EDT from Last 3 Months or Most Recently Relevant to Health Maintenance Results * Lab Software Engineer (09/25/2017 12:00 AM EDT) Carbon Dioxide (CO2) [...] 4.5 mg/dL [facility] 09/25/2017 [facility] Conversion LAB [id number] LICITED RESULTS Final Result KCTMA from Last 3 Months or Most Recently Relevant to Health Maintenance Insurance [facility] Care Teams Design Assistant Relationship Specialty Start Date End Date Ricco Hill MD [address] [place] [address] PCP - General 03/19/19
--- OUTSIDE RECORDS SUMMARY | 2024-09-23 13:14 | XMS_ITS ---
Author Organization [facility] Address [address] [place] [address] Care Team Providers Care Patch Washer Name Role Phone Jabier Russell Primary Care Provider Neha Roach Unavailable [phone] Yrn Bill Unavailable [phone] Allergies Allergen (clinical drug ingredient) Drug/Non Drug Allergy documented on EMR Reaction Allergy Type Onset Date Status medroxyprogesterone Provera Unknown Drug Allergy Active Latex Latex Unknown Allergy Active REASON FOR VISIT At Risk Footcare Medications Medication SIG (Take, Route, Frequency, Duration) Notes Start Date End Date Status Citalopram Hydrobromide 20 MG Orally Active Lisinopril 20 MG Orally Act danielle Vitamin D 1000 UNIT Orally Active metFORMIN HCl 500 MG 1 tablet with a terell l Orally Once a day Active Lantus 60Unit 48units Active Vitamin C Active Omeprazole 20 MG Orally Act danielle ASA 81 mg Not-Taking Cetirizine HCl Activ e Extra Depth Orthopedic Shoes (1 Pair) with Customized Heat Molded Multidensity Innersoles (3 Pair) as directed Dx: NIDDM/Polyneuropathy (E11.42), Hammertoe Foot Deformity (M20.41,M20.42), Preulcerative Skin Lesion(s) (L85.1 03/08/2024 Active hydroCHLOROthiazide 12.5 MG Orally Active Calcium + D3 Active Social History Tobacco Use: Social History Observation Description Date Details (start date - stop date) Never Smoker NA - NA Tobacco use other than smoking: Question Answer Notes Are you an other tobacco user? No Tobacco Control (Standard) Question Answer Notes Tobacco use: Nonsmoker Vital Signs Height 5ft 7in in 09/10/2024 Weight 245 lbs 09/10/2024 BMI 38.37 kg/m2 09/10/2024 Blood pressure systolic 128 mm Hg 09/11/19 25 Blood pressure diastolic 70 mm Hg 025 Procedures Procedure Date Ordered Date Performed Result Body Sit e 73491-PJMWFNK NAIL, 1-5 09/10/2024 N/A 62262-GRFD SKIN LESIONS, OVER 4 09/10/2024 N/A S2739-VKKTMRVY DYSTROPHIC NAILS ANY # 09/10/2024 N/A Encounters Encounter Location Date Provider Diagnosis [facility] [address] [address] 09/10/2024 Yrn Bill Type 2 diabetes mellitus with diabetic polyneuropathy E11.42 and Tinea unguium B35.1 Assessments Encounter Date Diagnosis (ICD Code) Assessment Notes Treatment Notes Treatment Clinical Notes Section Notes 09/10/2024 Type 2 diabetes mellitus with diabetic polyneuropathy (ICD-10 - E11.42) 09/10/2024 Tinea unguium (ICD-10 - B35.1) Plan Of Treatment Pending Test Test Name Order Date 83288-JLJTNHS NAIL, 1-5 09/10/2024 61052-GUVK SKIN LESIONS, OVER 4 09/11/19 25 E5012-VWXSLAJF DYSTROPHIC NAILS ANY # Next Appt Details Follow Up: prn, Reason: Provider Name:Yrn Bill , 12/13/2024 12:15:00 PM, [address] [place] [address], [id number], Procedure Notes * Category Sub-Category Detail Notes [...] instrumentation by the physician of record - 26764 Debride Nails 1-5 Procedure: Due to the [...] necessary to maintain effective symptomatic relief - 05017 Nail Reduction Nail Reduction (-27) Trimming o [...] * Janna IYERDOB:[birth year] (68 yo F)Acc No.[id number]:09/10/2024 Progress Note Patient:?Janna IYER Kayden Provider:?Yrn Bill DPM :1955???Age:68 Y???Sex:Female D ate:09/10/2024 Address:[address] [id number] Pcp:Jabier Russell Subjective: * Chief Complaints: * ???At Risk Footcare * HPI: ???At Risk footcare:?Pt States Last PCP Visit:?Date?03/29/2024 * ROS:?General/Constitutional:?Nausea?denies.?Vomiting?denies.?Hunger Thirst?denies.?Loss appetite?denies.?Chills?denies.?Fatigue?denies.?Fever?denies.?Night Sweats?denies.?Unexplained weight loss?denies.?Unexplained [...] medical reasons in the past 12 months??No ???Miscellaneous:?Caffeine: yes, frequency:, 1-2 cups of tea occassionally. ?Children: yes, 2. ?Exercise: yes, Daily. ?Marital status: single. ?Occupation: [employer], [employer]. * Medications:?TakingOmeprazol e 20 MG Capsule Delayed Release Orally Lantus 60Unit , Notes to Pharmacist: 48unitsVitamin D 1000 UNIT Tablet Orally metFORMIN HCl 500 MG Tablet 1 tablet with a meal Orally Once a day Citalopram Hydrobromide 20 MG Tablet Orally Lisinopril 20 MG Tablet Orally hydroCHLOROthiazide 12.5 MG Tablet Orally Calcium + D3 Vitamin C Cetirizine HCl Extra Depth Orthopedic Shoes (1 Pair) with Customized Heat Molded Multidensity Innersoles (3 Pair) as directed Dx: NIDDM/Polyneuropathy (E11.42), Hammertoe Foot Deformity (M20.41,M20.42), Preulcerative Skin Lesion(s) (L85.1 Taking Omeprazole 20 MG Capsule Delayed Release Orally Taking Lantus 60Unit , Notes to Pharmacist: 48unitsTaking Vitamin D 1000 UNIT Tablet Orally Taking metFORMIN HCl 500 MG Tablet 1 tablet with a meal Orally Once a day Taking Citalopram Hydrobromide 20 MG Tablet Orally [...] All ergyyes[Allergies Verified] Objective: * Vitals:?Ht:5ft 7in, Wt:245, BMI:38.37, Shoe size:11M, BP:128/70mm Hg, BS:154, Ht-cm: 170.18 cm, Wt-k.13 kg. * ???Past Orders: ???Lab:HEMOGLOBIN A1C (GLYCO HEMOGLOBIN) (Order Date - 03/15/2024) (Collection Date & Time - 04/15/2024 01:06 PM) ? Value Reference Range ?HEMOGLOBIN A1C % (HH) 7.2 * Examination: ???Ophthalmology Referral: ?DIABETES EYE EXAM?Procedure Performed:?Yes ?Date of Exam Performed?01/29/2024 States next appt soon - September 2024 ?Diabetic Retinopathy Screening:?Yes ?Retinal Screening Performed:?Yes ?Findings of Diabetic Eye Exam:?no retinopathy?Neurological: ?SENSORY:?Neurological [...] 1 , B/L , Plantar, Heel(s) , B/L.? Assessment: * Assessment: 1.?Tinea unguium - B35.1???2 .?Type 2 diabetes mellitus with diabetic polyneuropathy - E11.42 (Primary)??? Plan: * Treatment: * Procedures:?Debride Nails 1-5:?Procedure:?Due [...] necessary to maintain effective symptomatic relief - 81133.?Keratoma Treatment:?Parring or Cutting of Benign Hyperkeratotic Lesion(s)?(-57) [...] instrumentation by the physician of record - 53063.?Nail Reduction:?Nail Reduction?(-27) Trimming of all dystrophic nails [...] ING DYSTROPHIC NAILS ANY #, Modifiers: XS 60909 DEBRIDE NAIL, 1-5, Modifiers: XS 07908 TRIM SKIN LESIONS, OVER 4, Modifiers: XS * Follow Up:?prn * Images: * Sign off status: Completed true * Provider:?Yrn Bill DPM Date:?2024 Generated for Isamar brand/Benjamin/Zofia on:?09/23/2024 01:13 PM EDT History and Physical Notes * HPI (History of Present Illness) Category Sub-Category Detail Notes Category Not es At Risk footcare Pt States Last PCP [...] , B/L , Plantar, Heel(s) , B/L Ophthalmology Referral DIABETES EYE EXAM Procedu re Performed:: Yes ?Date of Exam Performed: 01/29/2024 Stat es next appt - September 2024 Diabetic Retinopathy Screening:: Yes Retinal Screening Performed:: Yes Findings of Diabetic Eye Exam:: no [...]
--- OUTSIDE RECORDS SUMMARY | 2024-09-23 13:14 | XMS_ITS ---
Author Organization [facility] Address [address] [place] [address] Care Team Providers Care Examining Chair Assembler Name Role Phone Jabier Russell Primary Care Provider Neha Roach Unavailable [phone] Yrn Bill Unavailable [phone] Allergies Allergen (clinical drug ingredient) Drug/Non Drug [...] Ordered Date Performed Result Body Sit e 49909-COTOHBV NAIL, 1-5 06/07/2024 N/A 05252-LRVQ SKIN LESIONS, OVER 4 06/07/2024 N/A Z2439-IJTIAMPX DYSTROPHIC NAILS ANY # 06/07/2024 N/A Encounters Encounter Location Date Provider Diagnosis [facility] [address] [address] 06/07/2024 Yrn Bill Type 2 diabetes mellitus [...] Treatment Pending Test Test Name Order Date 02444-KQDTQAH NAIL, 1-5 06/07/2024 62381-OLVJ SKIN LESIONS, OVER 4 06/07/19 25 V5424-BMKKBPKP DYSTROPHIC NAILS ANY # Next Appt Details Follow Up: prn, Reason: Provider Name:Yrn Bill , 12/13/2024 12:15:00 PM, [address] [place] [address], [phone], Procedure Notes * Category Sub-Category Detail Notes [...] instrumentation by the physician of record - 18886 Debride Nails 1-5 Procedure: Due to the [...] necessary to maintain effective symptomatic relief - 79843 Nail Reduction Nail Reduction (-27) Trimming o [...] * Janna IYERDOB:[birth year] (68 yo F)Acc No.[id number]:06/07/2024 Progress Note Patient:?Janna IYER Provider:?Yrn Bill DPM :1955???Age:68 Y???Sex:Female D ate:06/07/2024 Address:[address] [place] [address], [facility] [id number] Pcp:Jabier Russell Subjective: * Chief Complaints: * [...] necessary to maintain effective symptomatic relief - 87400.?Keratoma Treatment:?Parring or Cutting of Benign Hyperkeratotic Lesion(s)?(-57) [...] instrumentation by the physician of record - 46146.?Nail Reduction:?Nail Reduction?(-27) Trimming of all dystrophic nails [...] ING DYSTROPHIC NAILS ANY #, Modifiers: XS 23316 DEBRIDE NAIL, 1-5, Modifiers: XS 63772 TRIM SKIN LESIONS, OVER 4, Modifiers: XS [...] DPM Date:?2024 Generated for Isamar brand/Benjamin/Zofia on:?09/23/2024 01:14 PM EDT History and Physical Notes * [...]
--- OUTSIDE RECORDS SUMMARY | 2024-09-23 13:14 | XMS_ITS | Patient Health Record ---
Author Organization [facility] Address [address] [facility] [place] [address] Care Team Providers Care Crm Marketing Manager Name Role Phone DrewJabier Primary Care Provider Neha Roach Unavailable [phone] Yrn Bill Unavailable [phone] Allergies Allergen (clinical drug ingredient) Drug/Non Drug [...] terell l Orally Once a day Active hydroCHLOROthiazide 12.5 MG Orally Active Calcium + D3 Active Vitamin C Active Omeprazole 20 MG Orally Act danielle ASA 81 mg Not-Taking Lantus 60Unit 48units Active Cetirizine HCl Activ e Extra Depth Orthopedic Shoes (1 Pair) with Customized Heat Molded Multidensity Innersoles (3 Pair) as directed Dx: NIDDM/Polyneuropathy (E11.42), Hammertoe Foot Deformity (M20.41,M20.42), Preulcerative Skin Lesion(s) (L85.1 03/08/2024 Active Immunizations Vaccine Route Administration Date Status [...] Problem Acquired hammer toe of right foot (9135833642960438 ) Other hammer toe(s) (acquired), right foot (M20.41) Active confirmed Response to treatment, Improvemen t Problem Acquired hammer toe of left foot (9491899035884570 ) Other hammer toe(s) (acquired), left foot (M20.42) Active confirmed Response to treatment, Improvemen t Problem Polyneuropathy due to type 2 diabetes mellitus (987114382) Type 2 diabetes mellitus 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) Active confirmed Vital Signs Blood pressure diastolic 70 mm Hg 09/10/2024 Height 5ft 7in in 09/10/2024 Blood pressure systolic 128 mm Hg 09/10/2024 Weight 245 lbs 09/10/2024 BMI 38.37 kg/m2 09/10/2024 Procedures Procedure Date Ordered Date Performed Result Body Sit e 34836-UGKWRZO NAIL, 1-5 03/08/2024 N/A 66871-HIPI SKIN LESIONS, OVER 4 03/08/2024 N/A R2245-QDTYIGII DYSTROPHIC NAILS ANY # 03/08/2024 N/A 89126-BKTTTSP NAIL, 1-5 06/07/2024 N/A 50660-JFRX SKIN LESIONS, OVER 4 06/07/2024 N/A Y6956-QDJGSVUP DYSTROPHIC NAILS ANY # 06/07/2024 N/A 35719-WNJIDAZ NAIL, 1-5 09/10/2024 N/A 30926-NZSH SKIN LESIONS, OVER 4 09/10/2024 N/A H1722-URSSYDOH DYSTROPHIC NAILS ANY # 09/10/2024 N/A Encounters Encounter Location Date Provider Diagnosis [facility] [place] [address] 03/08/2024 Yrnbelinda Bill Type 2 diabetes mellitus with diabetic polyneuropathy E11.42 ; Tinea unguium B35.1 ; Other hammer toe(s) (acquired), right foot M20.41 and Other hammer toe(s) (acquired), left foot M20.[address] [address] 06/07/2024 Yrnbelinda Bill Type 2 diabetes mellitus with diabetic polyneuropathy E11.42 ; Tinea unguium B35.1 ; Other hammer toe(s) (acquired), right foot M20.41 and Other hammer toe(s) (acquired), left foot M20.[address] [address] 09/10/2024 Yrn Bill Type 2 diabetes mellitus with diabetic polyneuropathy E11.42 and Tinea unguium B35.[address] [address] 01/08/2024 Neha Horne Assessments Encounter Date Diagnosis (ICD Code) Assessment Notes Treatment Notes Treatment Clinical Notes Section Notes 03/08/2024 Tinea unguium (ICD-10 - B35.1) 03/08/2024 Type 2 diabetes mellitus with diabetic polyneuropathy (ICD-10 - E11.42) 06/07/2024 Tinea unguium (ICD-10 - B35.1) 06/07/2024 Type 2 diabetes mellitus with diabetic polyneuropathy (ICD-10 - E11.42) 09/10/2024 Tinea unguium (ICD-10 - B35.1) 09/10/2024 Type 2 diabetes mellitus with diabetic polyneuropathy (ICD-10 - E11.42) 06/07/2024 Other hammer toe(s) (acquired), right foot (ICD-10 - M20.41) Response to treatment,Impro vement 03/08/2024 Other hammer toe(s) (acquired), right foot (ICD-10 - M20.41) Patient Educated with: DIABETIC FOOT CARE INSTRUCTIONS. pdf (DIABETIC FOOT CARE INSTRUCTIONS. pdf) 03/08/2024 Other hammer toe(s) (acquired), left foot (ICD-10 - M20.42) 06/07/2024 Other hammer toe(s) (acquired), left foot (ICD-10 - M20.42) Response to treatment,Impro vement Plan Of Treatment Pending Test Test Name Order Date X ray : Foot, left 3V 12/23/2022 X ray : Foot, right 3V 12/23/2022 32558-ORVYYIK NAIL, 1-5 03/08/2024 15755-XWWITAS NAIL, 1-5 06/07/2024 02880-SLLNKMR NAIL, 1-5 09/10/2024 15127-NYOJ SKIN LESIONS, OVER 4 09/11/19 31914-GLTN SKIN LESIONS, OVER 4 03/08/20 93539-TAOU SKIN LESIONS, OVER 4 06/07/19 Q7818-ZUKRXEYK DYSTROPHIC NAILS ANY # S2878-OUPDWGGS DYSTROPHIC NAILS ANY # S0080-QUCWSXSX DYSTROPHIC NAILS ANY # Next Appt Details Provider Name:Yrn Bill , 12/13/2024 12:15:00 PM, [address] [facility], [place], [address], Insurance Providers Payer Name Payer Address Payer Phone Subscriber Number Group Number Insured Name Patient Relationship to Insured Coverage Start Date Coverage End Date [facility] 65 Medicare [address] [place] [address] [id number] Janna Iyer Self - patient is the insured Medical (General) History Medical History History ICD Code Arthritis CAD (Cholesterol) Depression type II diabetes High blood pressure keloids Reflux ( GERD) Vascular phlebitis (clots) Measles Mumps Chicken pox Bone implants/screws Transfusions Surgical History Surgery Date(Month/Year) TK R+ R 10.4 02/09/16 TK R+ R 9. 03 06/02/2016
== END 2024-09-23 15:28 | disposition home or self-care (01) ==
LOC: HO.HMCH 12:56
PROVIDERS: PCP Internal Medicine
DX: M25.551 Pain in right hip (principal); E11.21 Type 2 diabetes mellitus with diabetic nephropathy; Z79.4 Long term (current) use of insulin

== ENCOUNTER → 2024-09-23 13:49 | Outpatient (BNV) | payer MEDICARE, SELFPAY | PROVIDERS: PCP Internal Medicine; Visit Provider Radiology Diagnostic Radiology | DX: M16.11 Unilateral primary osteoarthritis, right hip (principal) | CPT/HCPCS: 73502 ==

== ENCOUNTER 2024-10-28 11:42 | Outpatient (AMB) | payer MEDICARE, SELFPAY ==
--- NOTE | 2024-10-28 11:52 | A.OFFVIS_ITS ---
Intake Visit Reasons: 3m/PVR Intake Note: Patient presents today for follow visit for incontinence Urology Medications: myrbetriq Blood Thinner:warfarin,apixaban PVR: 7ml's Human Resources Consultant Required: No Accompanied by: Self / Same As Patient Allergies medroxyprogesterone [Provera] Allergy (Intermediate, Verified 10/28/24 16:55) SKIN PEELING niacin [From NIASPAN EXTENDED-RELEASE] Allergy (Intermediate, Verified 10/28/24 16:55) facial flushing atorvastatin [From Lipitor] Allergy (Mild, Verified 10/28/24 16:55) MUSCLE ACHES, myalgia gemfibrozil [From Lopid] Allergy (Mild, Verified 10/28/24 16:55) MUSCLE ACHES fluconazole [From DIFLUCAN] Allergy (Unknown, Verified 10/28/24 16:55) PER H&P empagliflozin [From Jardiance] Adverse Reaction (Mild, Verified 10/28/24 16:55) urinary incontinence nitroglycerin [From Nitro-Dur] Adverse Reaction (Mild, Verified 10/28/24 16:55) LOW BLOOD PRESSURE ozempic Adverse Reaction (Intermediate, Uncoded 10/28/24 16:55) Headache Medication List - Last Reconciled 10/28/24 by SERA Sesay-ZANE apixaban (Eliquis) 5 mg PO BID Divina Reid U-100 Insulin (insulin glargine) 44 units (0.44 mL) subcut BID 90 days NS blood-glucose sensor (FreeStyle Ara 3 Plus Sensor device) As directed change every 14 days blood-glucose,button buttonhole marker,cont (FreeStyle Ara 3 [place]) As directed calcium carbonate-vitamin D3 (Calcium 600 + D(3)) 600 mg PO DAILY cholecalciferol (vitamin D3) 50 mcg PO DAILY citalopram 20 mg PO DAILY 90 days hydrochlorothiazide 12.5 mg PO DAILY lisinopril 20 mg PO DAILY 90 days metformin 500 mg PO DAILY 90 days mirabegron ER (Myrbetriq) 50 mg PO DAILY omeprazole 20 mg PO DAILY pen needle, 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) BID PRN tirzepatide (Mounjaro) 5 mg (0.5 mL) subcut QWEEK 84 days vitamin B complex 1 tab PO DAILY HPI Comments Details: Janna is a 69-year-old female patient of Dr. Russell. She has a past medical history of type 2 diabetes, fatty liver, anxiety, depression, environmental allergies, and urge incontinence. She presents to the office today for follow-up of her lower urinary tract symptoms. In discussion with the patient today she reports feeling symptoms of urinary urgency and frequency have significantly improved with 50 mg of Myrbetriq daily however she does continue to experience episodes of urge/stress incontinence. In office urinalysis results reviewed with the patient today. PVR 0 mL. Previous workup has included a retroperitoneal ultrasound 07/09 bilateral kidneys are normal in size and echotexture. 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 No bladder lesions. Pre void bladder volume is approximately 270 mL. Postvoid bladder volume is approximately 160 mL. She does continue to utilize 2-4 Kita pads per day. We did discuss further treatment options of stress/urge incontinence and risks and benefits of these treatment options. She does have a history of 2 vaginal births in the past. We discussed importance of management and diabetes as well as weight loss in relation to lower urinary tract symptoms as well as overall health and well-being. She discusses feeling lower urinary tract symptoms have been present for many years. She discusses her upcoming care home this Monday in looking forward to care home. She otherwise offers no other issues or concerns at this time. [facility] Medical History Type 2 diabetes mellitus Fatty liver determined by biopsy Urgency incontinence Fatty liver Anxiety and depression Shoulder pain, bilateral Environmental allergies LLL pneumonia Encounter for annual routine gynecological examination Contusion of foot Long-term insulin use Surgical History History of revision of total replacement of right knee joint History of colonoscopy History of total left knee replacement (TKR) History of total right knee replacement (TKR) History of breast biopsy History of tonsillectomy Family History Father Type 2 diabetes mellitus Polymyalgia Mother Cancer of thyroid Sister Breast cancer Sister Leukemia Brother Diabetes mellitus HTN (hypertension) High cholesterol Social History Household Members: None Housing: House Are you a primary intensive care anaesthetist to a significant other at home: No Do you presently have visiting nurse or other home services: No Alcohol intake: former Patient Tobacco Use Status: Former Tobacco user Tobacco use type: Cigarette Years Smoked: stopped 1984 e-Cigarette/Vaping Use: Never Used Advance Directives Date on File: 03/05/20 service: No Current occupational status: employed Cognitive needs: No Hearing needs: No Vision needs: Yes Female Reproductive History Menstrual Age of Menarche: 12 Review of Systems Const All systems reviewed & are unremarkable except as noted in HPI and below Physical Exam Const General: cooperative, healthy appearing, comfortable, no acute distress, well developed, alert and awake Nutritional Appearance: overweight Orientation/consciousness: patient oriented x3 Limitations: no limitations HEENT Head: Yes normal to inspection, Yes normocephalic and Yes atraumatic Ears: hearing grossly normal bilaterally Eyes General: appearance normal, both eyes and all related structures Neck Neck: Yes normal visual inspection and Yes trachea midline Chest Chest palpation & inspection: normal inspection of the chest Resp Effort & Inspection: normal respiratory effort and able to speak in complete sentences Cardio Rate: regular rate GI Inspection: Yes normal to inspection General: Yes no CVA tenderness Back/Spine/Pelvis Back: no CVA tenderness Skin General skin exam: no rashes or lesions noted Neuro General: patient oriented x3 Extrem General: Yes normal to inspection Psych Appearance: grossly normal and well kempt Mental Status: mental status grossly normal Speech and movement: Normal speech and movement present and Clear speech present Affect: normal affect Attitude: cooperative Thought process: Normal thought process present Thought content: Normal thought content present Insight: Fair insight present (Psych) Judgement: Fair judgement present (Psych) Office Procedures Post Void Residual Post Residual Void Post Void Residual (PVR): 7 23578-Ggvs Void Residual by ultrasound Results AMB Urinalysis, Automated UA Leukoctes 0 Rayshawn/uL Last Edit by DRAKE Jaramillo on 10/28/24 13:37 UA Nitrite Negative Last Edit by Ricardo Bre, [facility] on 10/28/24 13:37 UA Urobilinogen 0.2 mg/dL Last Edit by Ricardo Pisano, [facility] on 10/28/24 13:3 7 UA Protein 0 mg/dL Last Edit by Armandoana maria Pisano, [facility] on 10/28/24 13:37 UA pH 6.0 Last Edit by Armandoana maria Pisano, [facility] on 10/28/24 13:37 UA Blood 0 Jb/uL Last Edit by Armandoana maria Pisano, [facility] on 10/28/24 13:37 UA Specific [place] 1.015 Last Edit by Armandoana maria Pisano, [facility] on 10/28/24 13: 37 UA Ketone Negative Last Edit by [facility] maria Pisano, [facility] on 10/28/24 13:37 UA Bilirubin 0 mg/dL Last Edit by Armandoana maria Pisano, [facility] on 10/28/24 13:37 UA Glucose 0 mg/dL Last Edit by [facility], [facility] on 10/28/24 13:37 Results Reviewed Results Reviewed: Laboratory Last Values Urine pH (Auto) 6.0 10/28/24 13:34 Specific [place] (Auto) 1.015 10/28/24 13:34 Urine Protein (Auto) 0 mg/dL 10/28/24 13:34 Glucose (UA)(Auto) 0 mg/dL 10/28/24 13:34 Urine Ketones (Auto) Negative 10/28/24 13:34 Urine Blood (Auto) 0 Jb/uL 10/28/24 13:34 Urine Nitrite (Auto) Negative 10/28/24 13:34 Urine Bilirubin (Auto) 0 mg/dL 10/28/24 13:34 Urine Urobilinogen (Auto) 0.2 mg/dL 10/28/24 13:34 Leukocyte Esterase (Auto) 0 Rayshawn/uL 10/28/24 13:34 Assessment & Plan Assessment & Plan (1) Urinary incontinence, mixed: Code(s): N39.46 - Mixed incontinence Category: Medical (2) Urgency incontinence: Code(s): N39.41 - Urge incontinence Category: Medical (3) Mixed incontinence: Code(s): N39.46 - Mixed incontinence Category: Medical Plan In office urinalysis results reviewed with the patient today; as noted above. PVR 7 mL. She does report improvement in episodes of urinary urgency and frequency she had been experiencing with Myrbetriq; will continue; we did discuss discontinuing prior to in office urodynamics. We discussed further treatment options of urge incontinence and risks and benefits of these treatment options. We discussed at length the importance of managing diabetes as well as weight loss in relation to lower urinary tract symptoms as well as overall health and well-being. Will schedule for in office urodynamics; information provided. All questions were answered . Follow-up per doctor's orders; or sooner with any issues, concerns, and or questions. Orders: Orders AMB Urinalysis Automated 10/28/24 Z13.9 - Encounter for screening, unspecified AMB Post Void Residual by ultrasound 10/28/24 N39.41 - Urge incontinence Medications: Changed From mirabegron ER (Myrbetriq) 50 mg PO DAILY 30 tabs 3RF To mirabegron ER (Myrbetriq) 50 mg PO DAILY 90 tabs 3RF 90 days Patient Instructions: The patient had an opportunity to ask questions regarding the treatment plan. All questions were answered. Physical exam, labs, and imaging were discussed and reviewed in detail. As well as risks, benefits, and discussion of treatment choices. No major barriers to understanding were identified. The patient expressed understanding and agreement with the above treatment plan. The patient was made aware they should contact our office by phone for worsening of their current condition, the appearance of new symptoms, or with any questions or concerns. Compliance is encouraged with any medications and follow up testing that is ordered. It is a privilege to be allowed the opportunity to participate in? your urological care.? Again, if you have any questions or concerns If you have any questions or concerns please do not hesitate to contact me. The office is [phone]. This note is constructed using voice recognition software. While every effort has been made to ensure accuracy jewelry designer errors may have been included. Yours sincerely, CONTRERAS Sesay Coding Level of Care Code Est Pt Level 3 (36839) Complex EM visit Add On G2211 Diagnoses Urinary incontinence, mixed N39.46 Urgency incontinence N39.41 Mixed incontinence N39.46 CPT Codes Post Residual Void - PVR CPT Code: 01359-Ahwv Void Residual by ultrasound ([id number])
--- OUTSIDE RECORDS SUMMARY | 2024-10-28 13:19 | XMS_ITS | Patient Health Record ---
[facility] Address [address] [facility] [place] [address] Care Team Providers Care Phys Ther Name Role Phone DrewJabier Primary Care Provider Neha Roach Unavailable [phone] Yrn Bill Unavailable [phone] Allergies Allergen (clinical drug ingredient) Drug/Non Drug [...] Problem Acquired hammer toe of right foot (6660157263420415 ) Other hammer toe(s) (acquired), right foot (M20.41) Active confirmed Response to treatment, Improvemen t Problem Acquired hammer toe of left foot (6092486412813659 ) Other hammer toe(s) (acquired), left foot (M20.42) Active confirmed Response to treatment, Improvemen t Problem Polyneuropathy due to type 2 diabetes mellitus (322762444) Type 2 diabetes mellitus 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) Active confirmed Vital Signs Blood pressure diastolic 70 mm Hg 09/10/2024 Height 5ft 7in in 09/10/2024 Blood pressure systolic 128 mm Hg 09/10/2024 Weight 245 lbs 09/10/2024 BMI 38.37 kg/m2 09/10/2024 Procedures Procedure Date Ordered Date Performed Result Body Sit e 27857-WPZNTWM NAIL, 1-5 03/08/2024 N/A 75498-LUQL SKIN LESIONS, OVER 4 03/08/2024 N/A Q6171-HGVRTTLO DYSTROPHIC NAILS ANY # 03/08/2024 N/A 60700-MRTLZRF NAIL, 1-5 06/07/2024 N/A 71608-TLHG SKIN LESIONS, OVER 4 06/07/2024 N/A G0119-KOJGAJPV DYSTROPHIC NAILS ANY # 06/07/2024 N/A 52742-OOOJBMS NAIL, 1-5 09/10/2024 N/A 62267-YFPV SKIN LESIONS, OVER 4 09/10/2024 N/A S5603-ZCDVUNSS DYSTROPHIC NAILS ANY # 09/10/2024 N/A Encounters Encounter Location Date Provider Diagnosis [place] [address] [place] [address] 03/08/2024 Yrnbelinda Bill Type 2 diabetes mellitus with diabetic polyneuropathy E11.42 ; Tinea unguium B35.1 ; Other hammer toe(s) (acquired), right foot M20.41 and Other hammer toe(s) (acquired), left foot M20.[address] [address] 06/07/2024 Yrnbelinda Bill Type 2 diabetes mellitus with diabetic polyneuropathy E11.42 ; Tinea unguium B35.1 ; Other hammer toe(s) (acquired), right foot M20.41 and Other hammer toe(s) (acquired), left foot M20.[address] [address] 09/10/2024 Yrn Bill Type 2 diabetes mellitus with diabetic polyneuropathy E11.42 and Tinea unguium B35.[address] [address] 01/08/2024 eNha Horne Assessments Encounter Date Diagnosis (ICD Code) [...] X ray : Foot, right 3V 12/23/2022 73689-YODEOUY NAIL, 1-5 03/08/2024 69910-VXGCZTT NAIL, 1-5 06/07/2024 35753-XNQSJIS NAIL, 1-5 09/10/2024 18074-EHTY SKIN LESIONS, OVER 4 09/11/19 54124-QTCP SKIN LESIONS, OVER 4 03/08/20 36352-PCGW SKIN LESIONS, OVER 4 06/07/19 R9247-XDFAFERY DYSTROPHIC NAILS ANY # F4780-GPZFVNED DYSTROPHIC NAILS ANY # S8480-BCZHHELS DYSTROPHIC NAILS ANY # Next Appt Details Provider Name:Yrn Bill , 12/13/2024 12:15:00 PM, [address] [facility], [place], [address], Insurance Providers Payer Name Payer Address Payer Phone Subscriber Number Group Number Insured Name Patient Relationship to Insured Coverage Start Date Coverage End Date [facility] 65 Medicare [address] [place] [address] [id number] Janna Iyer Self - patient is the insured Medical (General) History Medical History History ICD Code Arthritis CAD (Cholesterol) Depression type II diabetes High blood pressure keloids Reflux ( GERD) Vascular phlebitis (clots) Measles Mumps Chicken pox Bone implants/screws Transfusions Surgical History Surgery Date(Month/Year) TK R+ R 10.4 02/09/16 TK R+ R 9. 03 06/02/2016
== END 2024-10-28 12:48 | disposition home or self-care (01) ==
LOC: HO.HUSH 11:44
PROVIDERS: PCP Internal Medicine; Visit Provider Nurse Practitioner Family
DX: Z13.9 Encounter for screening, unspecified (principal)

== ENCOUNTER → 2024-10-28 11:42 | Outpatient (BNVA) | payer MEDICARE, SELFPAY | PROVIDERS: PCP Internal Medicine; Visit Provider Nurse Practitioner Family | DX: N39.46 Mixed incontinence (principal) | CPT/HCPCS: 51798; 81003; 99212 ==

== ENCOUNTER 2024-11-01 09:39 | Outpatient (REF) | payer MEDICARE, SELFPAY ==
--- NOTE | ~2024-11-01 | MM_ITS ---
EXAMINATION: MM SCREENING DIGITAL BREAST TOMOSYNTHESIS, BILATERAL CLINICAL INFORMATION: Screening. Asymptomatic. COMPARISON: Mammography: Comparison is made with available priors TECHNIQUE: Digital breast mammography with tomosynthesis is performed in both the craniocaudal and mediolateral oblique views along with computer-aided detection (CAD). FINDINGS: There are scattered areas of fibroglandular density (ACR BI-RADS breast composition Category b). Left: Focal asymmetry with increasing architectural distortion in the upper outer quadrant anterior depth. There is skin retraction best seen on CC view. Marker clip in the upper outer quadrant from previous remote benign needle core biopsy. Right: There are no significant masses, abnormal calcifications, or other abnormalities. MM/MM tomosynthesis screening BI IMPRESSION: Additional imaging is recommended ASSESSMENT: BI-RADS BI-RADS 0 - Incomplete: Needs additional Imaging. RECOMMENDATION: 1. Additional views of the left breast. 2. Targeted ultrasound if warranted after review of the additional views. 3. Radiology department staff will contact the patient for additional imaging. Additional Imaging required This patient's information was entered into a reminder system with a target due date for their next mammogram. Electronically signed by: Kacie Prieto DO 11/07/2024 12:36 PM EDT
--- OUTSIDE RECORDS SUMMARY | 2024-11-01 09:51 | XMS_ITS | Patient Health Record ---
Author [facility] Address [address] [facility] [place] [address] Care Team Providers Care Sign Board Erector Name Role Phone DrewJabier Primary Care Provider Neha Roach Unavailable [phone] Yrn Bill Unavailable [phone] Allergies Allergen (clinical drug ingredient) Drug/Non Drug [...] Problem Acquired hammer toe of right foot (9991821539461736 ) Other hammer toe(s) (acquired), right foot (M20.41) Active confirmed Response to treatment, Improvemen t Problem Acquired hammer toe of left foot (1439223770663593 ) Other hammer toe(s) (acquired), left foot (M20.42) Active confirmed Response to treatment, Improvemen t Problem Polyneuropathy due to type 2 diabetes mellitus (372241149) Type 2 diabetes mellitus 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) Active confirmed Vital Signs Blood pressure diastolic 70 mm Hg 09/10/2024 Height 5ft 7in in 09/10/2024 Blood pressure systolic 128 mm Hg 09/10/2024 Weight 245 lbs 09/10/2024 BMI 38.37 kg/m2 09/10/2024 Procedures Procedure Date Ordered Date Performed Result Body Sit e 23499-LMGAZNG NAIL, 1-5 03/08/2024 N/A 96545-LOEF SKIN LESIONS, OVER 4 03/08/2024 N/A X8969-KYIRDMZW DYSTROPHIC NAILS ANY # 03/08/2024 N/A 01930-PWWGYMV NAIL, 1-5 06/07/2024 N/A 85699-BISO SKIN LESIONS, OVER 4 06/07/2024 N/A C5386-WLPEBHAD DYSTROPHIC NAILS ANY # 06/07/2024 N/A 52817-DJZAIRW NAIL, 1-5 09/10/2024 N/A 28535-UAQH SKIN LESIONS, OVER 4 09/10/2024 N/A D5120-EJHWGTAU DYSTROPHIC NAILS ANY # 09/10/2024 N/A Encounters Encounter Location Date Provider Diagnosis [place] [address] [place] [address] 03/08/2024 Yrnbelinda Bill Type 2 diabetes mellitus with diabetic polyneuropathy E11.42 ; Tinea unguium B35.1 ; Other hammer toe(s) (acquired), right foot M20.41 and Other hammer toe(s) (acquired), left foot M20.[address] [address] 06/07/2024 Yrnbelinda Bill Type 2 diabetes mellitus with diabetic polyneuropathy E11.42 ; Tinea unguium B35.1 ; Other hammer toe(s) (acquired), right foot M20.41 and Other hammer toe(s) (acquired), left foot M20.[address] [address] 09/10/2024 Yrn Bill Type 2 diabetes mellitus with diabetic polyneuropathy E11.42 and Tinea unguium B35.[address] [address] 01/08/2024 Neha Horne Assessments Encounter Date Diagnosis [...] X ray : Foot, right 3V 12/23/2022 51764-LNMYXUU NAIL, 1-5 03/08/2024 02681-JWEIKRE NAIL, 1-5 06/07/2024 53183-EFCJURM NAIL, 1-5 09/10/2024 69579-VFCP SKIN LESIONS, OVER 4 09/11/19 13937-VNAE SKIN LESIONS, OVER 4 03/08/20 43679-OQNI SKIN LESIONS, OVER 4 06/07/19 Q1216-NZUKXAZB DYSTROPHIC NAILS ANY # R3256-RPBQOLJN DYSTROPHIC NAILS ANY # V7442-AGYAEFFH DYSTROPHIC NAILS ANY # Next Appt Details Provider Name:Yrn Bill , 12/13/2024 12:15:00 PM, [address] [facility], [place], [address], Insurance Providers Payer Name Payer Address Payer Phone Subscriber Number Group Number Insured Name Patient Relationship to Insured Coverage Start Date Coverage End Date [employer] 65 Medicare [address] [place] [address] [phone] [id number] Janna Iyer Self - patient is the insured Medical (General) History Medical History History ICD Code Arthritis CAD (Cholesterol) Depression type II diabetes High blood pressure keloids Reflux ( GERD) Vascular phlebitis (clots) Measles Mumps Chicken pox Bone implants/screws Transfusions Surgical History Surgery Date(Month/Year) TK R+ R 10.4 02/09/16 TK R+ R 9. 03 06/02/2016
== END 2024-11-01 09:40 | disposition home or self-care (01) ==
LOC: HO.MAMMO 09:39
PROVIDERS: PCP Internal Medicine
DX: Z12.31 Encounter for screening mammogram for malignant neoplasm of breast (principal)
CPT/HCPCS: 77063; 77067

== ENCOUNTER → 2024-11-01 09:45 | Outpatient (BNV) | payer MEDICARE, SELFPAY | PROVIDERS: PCP Internal Medicine; Visit Provider Internal Medicine | DX: Z12.31 Encounter for screening mammogram for malignant neoplasm of breast (principal) | CPT/HCPCS: 77063; 77067 ==

== ENCOUNTER 2024-11-05 11:28 | Outpatient (AMB) | payer MEDICARE, SELFPAY ==
--- NOTE | 2024-11-05 09:29 | A.OFFVIS_ITS ---
Vital Signs 11/05/24 11:32 Height 5 ft 7 in Weight 265 lb 3.457 oz BMI 41.5 BP 112/76 Blood Pressure Location Lt brachial Position Sitting Pulse 72 Pulse Source Pulse Oximeter Pulse Oximetry (%) 94 Oxygen Delivery Method Room Air Intake Visit Reasons: T2DM Intake Note: Patient presents today for a follow-up on Type 2 Diabetes Mellitus: Last Diabetic eye exam was on: 09/2024 Last Podiatry exam was on: 09/2024 at [facility] Most recent HbA1c: 6.7%, 09/23/2024 Random Glucose-136 mg/dL [place] Net Or Trap Required: No Accompanied by: Self / Same As Patient Allergies medroxyprogesterone (Provera) Allergy (Intermediate, Verified 11/05/24 11:38) SKIN PEELING niacin (From NIASPAN EXTENDED-RELEASE) Allergy (Intermediate, Verified 11/05/24 11:38) facial flushing atorvastatin (From Lipitor) Allergy (Mild, Verified 11/05/24 11:38) MUSCLE ACHES, myalgia gemfibrozil (From Lopid) Allergy (Mild, Verified 11/05/24 11:38) MUSCLE ACHES fluconazole (From DIFLUCAN) Allergy (Unknown, Verified 11/05/24 11:38) PER H&P empagliflozin (From Jardiance) Adverse Reaction (Mild, Verified 11/05/24 11:38) urinary incontinence nitroglycerin (From Nitro-Dur) Adverse Reaction (Mild, Verified 11/05/24 11:38) LOW BLOOD PRESSURE ozempic Adverse Reaction (Intermediate, Uncoded 11/05/24 11:38) Headache HPI Comments Details: Patient is a 69-year-old female with a significant past medical history of prior DVT, on chronic anticoagulation, CKD, diabetic nephropathy, long-term insulin use and hypertension presenting today for a follow-up regarding her diabetes. She was last seen 09/10/24 at which time Mounjaro was increased to 5 mg in basal insulin was lowered Most recent A1c 11/05/24 6.7%, 6.7% on 07/01/24. She was dx with dm 30 years ago. A1C 7.2% 03/28/24 down from previous 7.6% and 8% Ozempic caused headache and nausea Trial of Jardiance 2023 and had urinary symptoms: Incontinence Did not tolerate glyburide Mounjaro has not been increased secondary to previous side effects on higher doses of other GLp-1 agonists. She has been steadily losing weight on Mounjaro. Current medication: Lantus 40 units bid Mounjaro 5mg weekly Metformin 500mg daily Dexcom average glucose: 134 14 day continuous glucose monitor report reviewed Glucose Managment indicator 6.5 % Days with CGM data 96 % TIme in ranges: 0% very high (above 250) 9 % high ?(181-250) 90% in range ?(70-180] 0 % low (69-55) 0 % ?very low (below 54) Interpretation: Excellent control without hypoglycemia postprandial -Mother had thyroid cancer and metastatic abdominal cancer (not sure if involving pancreas). She was able to discuss her mother's history with her sister and the thyroid cancer she had was papillary thyroid cancer not medullary cancer No retinopathy Last eye exam over due is scheduled with Dr. Martin at [facility] September 2024 complications include nephropathy and neuropathy Recently seen by Podiatry and has new shoes and inserts. She is working on shaving down callus on the plantar aspect of her foot near the heel. Has nephropathy: 04/26/2024 EGFR 57 12/27/2023 microalbumin 163 she is followed by Nephrology and is on Del inhibitor she has f/u in one year Recent dexa: normal bone density. Did not tolerate statins or gemfibrozil or niacin. No recent lipid profile Recent liver elastography: enlarged liver, fatty, no advanced disease. GI consult was placed but GI addressed colonscopy screening, She reports she has f/u with GI [facility] Medical History Type 2 diabetes mellitus Fatty liver determined by biopsy Urgency incontinence Fatty liver Anxiety and depression Shoulder pain, bilateral Environmental allergies LLL pneumonia Encounter for annual routine gynecological examination Contusion of foot Long-term insulin use Surgical History History of revision of total replacement of right knee joint History of colonoscopy History of total left knee replacement (TKR) History of total right knee replacement (TKR) History of breast biopsy History of tonsillectomy Family History Father Type 2 diabetes mellitus Polymyalgia Mother Cancer of thyroid Sister Breast cancer Sister Leukemia Brother Diabetes mellitus HTN (hypertension) High cholesterol Social History Household Members: None Housing: House Are you a primary multi care technician to a significant other at home: No Do you presently have visiting nurse or other home services: No Alcohol intake: former Patient Tobacco Use Status: Former Tobacco user Tobacco use type: Cigarette Years Smoked: stopped 1984 e-Cigarette/Vaping Use: Never Used Advance Directives Date on File: 03/05/20 service: No Current occupational status: employed Cognitive needs: No Hearing needs: No Vision needs: Yes Female Reproductive History Menstrual Age of Menarche: 12 Physical Exam Vital Signs: Last Vital Signs Pulse 72 11/05/24 11:32 BP 112/76 11/05/24 11:32 Pulse Ox 94 11/05/24 11:32 Oxygen Delivery Method Room Air 11/05/24 11:32 BMI result Body Mass Index 41.5 Const Other: Absence of Cushingoid features. Absence of acromegalic features. Neck exam reveals nl size thyroid about 15 gms. No thyroid nodules palpable. Heart S1 S2, Reg R/R. No M/R G. Skin exam reveals absence of vitiligo or acanthosis nigricans. No edema Visual exam of foot performed. No ulcerations or open lesions. No inter digit maceration or fissuring. No onychomycosis, no callouses. Sensation intact to monofilament exam. Vibratory sensation is normal with 128 Hz tuning fork. 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 Continue current dosing of insulin a Rich Follow up with GI medicine for fatty liver The patient had an opportunity to ask questions regarding treatment plan. The patient expressed understanding and agreement with the above treatment plan. The patient is aware they should contact our office by phone for worsening glucose readings or for any low blood sugars which may warrant a change in diabetes medication. Compliance is encouraged with medications and any followup testing/consults which may have been ordered. Medications: Changed From Basaglar KwikPen U-100 Insulin (insulin glargine) 44 units (0.44 mL) subcut BID 90 days 82 mL 3RF NS To Basaglar KwikPen U-100 Insulin (insulin glargine) 40 units (0.4 mL) subcut BID 72 mL 3RF 90 days NS Patient Instructions: The patient was counseled to achieve a target A1C of 7% (154 avg). Fasting blood sugars should be 90-130 in the morning and less than 180 two hours after meals. Reviewed the relationship between poor diabetic control and the development of complications. Check your feet daily looking for any signs of infection, drainage, redness, ulceration and seek medical attention if this occurs. Break in shoes gradually and do not wear open-toed shoes or walk stocking footed or barefooted. Always carry a source of sugar Coding Level of Care Code Est Pt Level 4 (25187) Complex EM visit Add On G2211 Diagnoses Type 2 diabetes mellitus with diabetic nephropathy, with long-term current use of insulin E11.21; Z79.4 Diabetes mellitus complication detail: with nephropathy Diabetes mellitus complication status: with kidney complications Diabetes mellitus retirement insulin use: with oil heaterman use Time Spent (min) 30 Comment Time spent reviewing labs/provider notes, face to face, chart doc
[2024-11-05 11:32] VITALS: BP 112/76; PULSE 72; O2SAT 94; BMI 41.5
[2024-11-05 11:45] LABS: Glucose, Whole Blood 136 mg/dL (60-115)
--- OUTSIDE RECORDS SUMMARY | 2024-11-05 13:08 | XMS_ITS | Patient Health Record ---
[facility] Address [address] [facility] [place] [address] Care Team Providers Care Lead Ios Developer Name Role Phone DrewJabier Primary Care Provider Neha Roach Unavailable [phone] Yrn Bill Unavailable [phone] Allergies Allergen (clinical drug ingredient) Drug/Non Drug [...] Problem Acquired hammer toe of right foot ([id number] ) Other hammer toe(s) (acquired), right foot (M20.41) Active confirmed Response to treatment, Improvemen t Problem Acquired hammer toe of left foot ([id number] ) Other hammer toe(s) (acquired), left foot (M20.42) Active confirmed Response to treatment, Improvemen t Problem Polyneuropathy due to type 2 diabetes mellitus ([id number]) Type 2 diabetes mellitus 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) Active confirmed Vital Signs Blood pressure diastolic 70 mm Hg 09/10/2024 Height 5ft 7in in 09/10/2024 Blood pressure systolic 128 mm Hg 09/10/2024 Weight 245 lbs 09/10/2024 BMI 38.37 kg/m2 09/10/2024 Procedures Procedure Date Ordered Date Performed Result Body Sit e 84035-SNCDWGI NAIL, 1-5 03/08/2024 N/A 39964-XUQQ SKIN LESIONS, OVER 4 03/08/2024 N/A L9491-ABRZDIDQ DYSTROPHIC NAILS ANY # 03/08/2024 N/A 08599-WSHVUBQ NAIL, 1-5 06/07/2024 N/A 23840-LZMA SKIN LESIONS, OVER 4 06/07/2024 N/A S3559-ATIPBKPG DYSTROPHIC NAILS ANY # 06/07/2024 N/A 92786-JWHJYJE NAIL, 1-5 09/10/2024 N/A 67862-RGSB SKIN LESIONS, OVER 4 09/10/2024 N/A G0659-SHPGIWTU DYSTROPHIC NAILS ANY # 09/10/2024 N/A Encounters Encounter Location Date Provider Diagnosis [facility] [place] [address] 03/08/2024 Yrnbelinda Bill Type 2 diabetes mellitus with diabetic polyneuropathy E11.42 ; Tinea unguium B35.1 ; Other hammer toe(s) (acquired), right foot M20.41 and Other hammer toe(s) (acquired), left foot M20.[address] [address] 06/07/2024 Yrnbelinda Bill Type 2 diabetes mellitus with diabetic polyneuropathy E11.42 ; Tinea unguium B35.1 ; Other hammer toe(s) (acquired), right foot M20.41 and Other hammer toe(s) (acquired), left foot M20.[address] [address] 09/10/2024 Yrn Bill Type 2 diabetes mellitus with diabetic polyneuropathy E11.42 and Tinea unguium B35.[address] [address] 01/08/2024 Neha Horne Assessments Encounter Date Diagnosis [...] X ray : Foot, right 3V 12/23/2022 00812-WMZQJPY NAIL, 1-5 03/08/2024 83364-ETUYNDR NAIL, 1-5 06/07/2024 76412-GUGTPWL NAIL, 1-5 09/10/2024 02351-FLFJ SKIN LESIONS, OVER 4 09/11/19 23177-MPDF SKIN LESIONS, OVER 4 03/08/20 34137-QWZZ SKIN LESIONS, OVER 4 06/07/19 B6127-GPPZQBFJ DYSTROPHIC NAILS ANY # G5859-VBQKTHSZ DYSTROPHIC NAILS ANY # T4250-JUZUCCNT DYSTROPHIC NAILS ANY # Next Appt Details Provider Name:Yrn Bill , 12/13/2024 12:15:00 PM, [address] [facility], [place], [address], Insurance Providers Payer Name Payer Address Payer Phone Subscriber Number Group Number Insured Name Patient Relationship to Insured Coverage Start Date Coverage End Date [facility] 65 Medicare [address] [place] [address] [id number] Janna Iyer Self - patient is the insured Medical (General) History Medical History History ICD Code Arthritis CAD (Cholesterol) Depression type II diabetes High blood pressure keloids Reflux ( GERD) Vascular phlebitis (clots) Measles Mumps Chicken pox Bone implants/screws Transfusions Surgical History Surgery Date(Month/Year) TK R+ R 10.4 02/09/16 TK R+ R 9. 03 06/02/2016
== END 2024-11-05 12:07 | disposition home or self-care (01) ==
LOC: HO.ENCR 11:29
PROVIDERS: PCP Internal Medicine; Visit Provider Nurse Practitioner Adult Health
DX: E11.21 Type 2 diabetes mellitus with diabetic nephropathy (principal); Z79.4 Long term (current) use of insulin
CPT/HCPCS: 99214; G2211

== ENCOUNTER → 2024-11-05 11:28 | Outpatient (BNVA) | payer MEDICARE, SELFPAY | PROVIDERS: PCP Internal Medicine; Visit Provider Nurse Practitioner Adult Health | DX: E11.21 Type 2 diabetes mellitus with diabetic nephropathy (principal); Z79.4 Long term (current) use of insulin | CPT/HCPCS: 82947; 99212 ==

== ENCOUNTER 2024-11-27 11:44 | Outpatient (REF) | payer MEDICARE, SELFPAY ==
[2024-11-27 13:33] LABS: Alanine Aminotransferase 24 U/L (0-31); Albumin Level 4.4 g/dL (3.5-5.0); Alkaline Phosphatase 103 U/L (39-117); Anion Gap 12 (12-20); Aspartate Amino Transferase 28 U/L (5-31); Blood Urea Nitrogen 19 mg/dL (9-16); Calcium 10.4 mg/dL (8.4-10.2); Carbon Dioxide 28 mmol/L (22-29); Chloride 103 mmol/L (96-108); Estimated Glomerular Filt Rate 42; Potassium 4.4 mmol/L (3.3-5.1); Sodium 139 mmol/L (135-145); Total Protein 7.3 g/dL (6.5-8.0)
[2024-11-27 13:47] LABS: HBS Num1 0.01 mIU/mL (0-7.99); HBc Num1 0.10 S/CO (0.00-0.79); HBsAGNum1 0.51 S/CO (0.00-0.99); HIV Num 1 0.07 S/CO (0.00-0.99); Hepatitis A Antibody IgM 0.19 Index (0-0.79); Hepatitis B Surface Antigen Negative (Negative); ~HepC Num1 0.09 S/CO (0.00-0.79); ~Hepatitis A Antibody IgM Nonreactive (Nonreactive); ~Hepatitis B Surface Antibody NONREACTIVE (Nonreactive); ~Hepatitis C Antibody Nonreactive (Nonreactive)
[2024-11-27 13:48] LABS: Ferritin 46 ng/mL (10-250)
[2024-12-03 15:33] LABS: Anti Nuclear Antibody Pattern Nuclear, Speckled; Anti Nuclear Antibody Screen POSITIVE (NEGATIVE); Anti Nuclear Antibody Titer 1:40 titer
[2024-12-06 01:43] LABS: FIB-ALT 15 U/L (6-29); FIB-Alpha-2-Macroglobulin 358 mg/dL (106-279); FIB-Apolipoprotein A1 129 mg/dL (101-198); FIB-GGT 17 U/L (3-65); FIB-Haptoglobin 142 mg/dL (43-212); FIB-Total Bilirubin 0.6 mg/dL (0.2-1.2); Liver Fibrosis Score 0.52; Liver Fibrosis Stage F2; Nec Inflam Act Grade A0; Nec Inflam Act Score 0.07
== END 2024-11-27 11:45 | disposition home or self-care (01) ==
LOC: HO.LAB 11:44
PROVIDERS: PCP Internal Medicine; Visit Provider Nurse Practitioner
DX: K76.0 Fatty (change of) liver, not elsewhere classified (principal); E11.9 Type 2 diabetes mellitus without complications; D12.6 Benign neoplasm of colon, unspecified; Z01.84 Encounter for antibody response examination; Z11.59 Encounter for screening for other viral diseases; Z11.4 Encounter for screening for human immunodeficiency virus [HIV]
CPT/HCPCS: 36415; 80053; 81596; 82728; 86015; 86038; 86039; 86381; 86704; 86706; 86709; 86803; 87340; 87389; 99212

== ENCOUNTER 2024-11-27 11:44 | Outpatient (AMB) | payer MEDICARE, SELFPAY ==
--- NOTE | 2024-11-27 11:49 | MHC.OFFVIS ---
Vital Signs 11/27/24 12:05 Height 5 ft 7 in Weight 265 lb BMI 41.5 BP 118/76 Blood Pressure Location Lt brachial Position Sitting Pulse 82 Pulse Oximetry (%) 96 Oxygen Delivery Method Room Air Intake Visit Reasons: SCOT 2023. New concern - Liver abn. Intake Note: Patient follow up for liver abnormalities. Patient denies any GI issues for today Awning Assembler Required: No Accompanied by: Self / Same As Patient Allergies medroxyprogesterone (Provera) Allergy (Intermediate, Verified 11/27/24 12:03) SKIN PEELING niacin (From NIASPAN EXTENDED-RELEASE) Allergy (Intermediate, Verified 11/27/24 12:03) facial flushing atorvastatin (From Lipitor) Allergy (Mild, Verified 11/27/24 12:03) MUSCLE ACHES, myalgia gemfibrozil (From Lopid) Allergy (Mild, Verified 11/27/24 12:03) MUSCLE ACHES fluconazole (From DIFLUCAN) Allergy (Unknown, Verified 11/27/24 12:03) PER H&P empagliflozin (From Jardiance) Adverse Reaction (Mild, Verified 11/27/24 12:03) urinary incontinence nitroglycerin (From Nitro-Dur) Adverse Reaction (Mild, Verified 11/27/24 12:03) LOW BLOOD PRESSURE ozempic Adverse Reaction (Intermediate, Uncoded 11/05/24 11:38) Headache HPI HPI SCOT 2023. New concern - Liver abn.: Details: Assessment & Plan (1) Pre-op examination: Code(s): Z01.818 - Encounter for other preprocedural examination Category: Medical Plan She disliked the prep with the last colonoscopy - will try Miralax prep NO bowel or upper GI problems. Her asthma is seasonal and well controlled and she denies cardiac problems. No ID problems. No anes or sed problems. There is no known FHX of crc or polyps. Orders: Orders Colonoscopy - GI Use Only 02/28/24 Z01.818 - Encounter for other preprocedural examination Medications: New bisacodyl (Dulcolax (bisacodyl)) 10 mg (2 x 5 mg) PO BEDTIME 4 tabs 0RF 2 days polyethylene glycol 3350 (Miralax) 238 grams PO ONCE 238 grams 0RF colonoscopy prep 1 day COLONOSCOPY 06/25/24 Findings: Terminal Ileum-patchy erythema, bx taken random bx taken from right colon as well Cecum: x 2 sessile polyps 5-8 mm removed with cold forceps Ascending Colon: normal Transverse Colon -normal Descending Colon:normal Sigmoid Colon: mild diverticulosis Rectum: Retroflexion with small internal hemorrhoids seen, grade I Anorectum - normal Intervention: cold forceps Impression and Post Procedure Diagnosis: diverticulosis colon polyps internal hemorrhoids Plan: High fiber diet leaflet Avoid straining at stool, epsom salts and sitz bath, anusol supps or cream Repeat Colonoscopy in 5 years if pre cancerous polyps, 10 yrs if non pre cancerous or earlier if clinically indicated BIOPSY Received: 06/25/24 Diagnosis A. Cecum, polypectomies: - Tubular adenoma; negative for high-grade dysplasia or carcinoma. - Colonic mucosa with prominent lymphoid aggregates. B. Terminal ileum, biopsy: Chronic inactive ileitis; negative for dysplasia. C. Colon, right biopsy: Colonic mucosa within normal limits. US ABD 12/2023 WITH ELATOGRAPHY f0-f1) FINDINGS: PANCREAS: The visualized pancreatic head and body are normal in appearance. The remainder of the pancreas is obscured from visualization by the overlying bowel gas. LIVER: The liver is enlarged measuring 19.8 cm in greatest length with increased echogenicity consistent with hepatic steatosis. No focal lesion or intrahepatic biliary duct dilatation. Shear wave elastography provides a median stiffness of 1.46 m/s (reference: normal median stiffness is 0.81 - 1.22 m/s). The IQR/median stiffness to assess sampling precision is 0.11 (reference: optimal IQR/median stiffness is under 0.3). GALLBLADDER: The gallbladder contracted without evidence of stones, sludge, polyps, or pericholecystic fluid. COMMON BILE DUCT: Normal in caliber measuring 0.4 cm in diameter. RIGHT KIDNEY: Normal. No hydronephrosis. No renal calculi or focal parenchymal lesions. The kidney measures 11.6 cm in maximum dimension. FREE FLUID: None. US/US abdomen rocha w elastography IMPRESSION: 1. Enlarged fatty liver. 2. Liver Elastography: In the absence of other known clinical signs, measurements rule out compensated advanced chronic liver disease. If there are known clinical signs, further testing may be needed for confirmation. TODAYS VISIT The procedure needs to be repeated in 5 years due to the tubular adenoma. The procedure was well tolerated. The results were explained and the patient is agreeable to the follow-up interval as stated. The bowel pattern has returned to normal. Education was provided to tell any 1st degree relatives about their findings to be sure that they are screened by age 45. Educated that they will be put on a recall list when it is time for their repeat scope but should they move out of state or away from the hospital they will need to remember along with their primary to repeat the procedure in a timely fashion to avoid any adverse complications. We have to search for the reason for referral, it seems to have been an US from 2023 showing some steatosis. Oddly, there have been no recent liver chem studies, nor, as the record indicated, has the pt had any liver biopsies. She does not drink ETOH, NIDDM is well controlled with a1c under 7%, and no fHX of liver diseaswe known. ROV 6 weeks. [facility] Medical History (Updated 11/27/24 @ 13:16 by RON Fernández) Type 2 diabetes mellitus Urgency incontinence Fatty liver Anxiety and depression Shoulder pain, bilateral Environmental allergies LLL pneumonia Encounter for annual routine gynecological examination Contusion of foot Long-term insulin use Surgical History (Updated 11/27/24 @ 13:16 by RNO Fernández) History of revision of total replacement of right knee joint History of colonoscopy History of total left knee replacement (TKR) History of total right knee replacement (TKR) History of breast biopsy History of tonsillectomy Family History Father Type 2 diabetes mellitus Polymyalgia Mother Cancer of thyroid Sister Breast cancer Sister Leukemia Brother Diabetes mellitus HTN (hypertension) High cholesterol Social History Household Members: None Housing: House Are you a primary district manager primary care sales to a significant other at home: No Do you presently have visiting nurse or other home services: No Alcohol intake: former Patient Tobacco Use Status: Former Tobacco user Tobacco use type: Cigarette Years Smoked: stopped 1984 e-Cigarette/Vaping Use: Never Used Advance Directives Date on File: 03/05/20 service: No Current occupational status: employed Cognitive needs: No Hearing needs: No Vision needs: Yes Female Reproductive History Menstrual Age of Menarche: 12 Review of Systems Const Denies fatigue, Denies fever(s), Denies night sweats, Denies poor appetite and Denies weight loss ENT Reports Normal hearing present, Denies dysphagia, Denies odynophagia, Denies throat swelling and Denies tongue swelling Card Reports no additional complaints Resp Reports no additional complaints GI Details: Denies abdominal pain, Denies melena, Denies bloating, Denies hematochezia, Denies constipation, Denies GI cramping, Denies dysphagia, Denies excessive flatus, Denies early satiety, Denies heartburn, Denies diarrhea, Denies nausea, Denies odynophagia, Denies vomiting and Denies hematemesis Musc Reports abnormal gait, Reports back pain and Reports arthralgias Skin/Breast Denies pruritus, Denies lesions, Denies rash and Denies jaundice Neuro Reports Normal hearing present, Denies Abnormal speech present and Reports abnormal gait Endo Denies fatigue Aller/Immun Denies throat swelling and Denies tongue swelling Physical Exam Vital Signs: Last Vital Signs Pulse 82 11/27/24 12:05 BP 118/76 11/27/24 12:05 Pulse Ox 96 11/27/24 12:05 Oxygen Delivery Method Room Air 11/27/24 12:05 BMI result Body Mass Index 41.5 Const General: cooperative, no acute distress, well developed and well groomed Nutritional Appearance: well nourished and obese Orientation/consciousness: oriented to person, oriented to place and oriented to time Limitations: No language barrier and ambulation with cane HEENT Head: Yes normocephalic and Yes atraumatic Eyes General: appearance normal, both eyes and all related structures Pupils: Equal, round and reactive pupils present Neck Neck: Yes normal visual inspection and Yes no lymphadenopathy Thyroid: Thyroid normal Resp Effort & Inspection: normal respiratory effort and able to speak in complete sentences Auscultation: clear to auscultation bilaterally Cardio Rate: regular rate Rhythm: regular rhythm Heart sounds: Normal, physiologic split S2 sound present Peripheral pulses: radial pulses present and posterior tibial pulses present GI Inspection: No distended, Yes Abdominal panniculus present and Yes obesity Palpation (GI): Soft to palpation, nontender, no guarding, not rigid and No hepatosplenomegaly present Percussion: Yes normal to percussion Auscultation: normal bowel sounds Rectal Exam - Female: deferred Skin General skin exam: no rashes or lesions noted, turgor normal, skin not dry, no jaundice, No spider nevi and no striae Rashes: no rashes Nails: normal Neuro General: oriented to person, oriented to place and oriented to time Cranial nerves: Yes Equal, round and reactive pupils present and Yes Normal hearing present Speech: No Abnormal speech present Extrem General: Yes normal to inspection, No clubbing, No cyanosis and No edema Psych Appearance: grossly normal and well kempt Mental Status: mental status grossly normal Speech and movement: Normal speech and movement present Affect: normal affect Attitude: cooperative Thought process: Normal thought process present and not confabulating Thought content: Normal thought content present Insight: Fair insight present (Psych) Judgement: Fair judgement present (Psych) Assessment & Plan Assessment & Plan (1) Fatty liver: Code(s): K76.0 - Fatty (change of) liver, not elsewhere classified Category: Medical (2) Tubular adenoma of colon: Comment: 2024 scope =1TA repeat 5 years Code(s): D12.6 - Benign neoplasm of colon, unspecified Category: Medical Plan The procedure needs to be repeated in 5 years due to the tubular adenoma. The procedure was well tolerated. The results were explained and the patient is agreeable to the follow-up interval as stated. The bowel pattern has returned to normal. Education was provided to tell any 1st degree relatives about their findings to be sure that they are screened by age 45. Educated that they will be put on a recall list when it is time for their repeat scope but should they move out of state or away from the hospital they will need to remember along with their primary to repeat the procedure in a timely fashion to avoid any adverse complications. We have to search for the reason for referral, it seems to have been an US from 2023 showing some steatosis. Oddly, there have been no recent liver chem studies, nor, as the record indicated, has the pt had any liver biopsies. She does not drink ETOH, NIDDM is well controlled with a1c under 7%, and no fHX of liver diseaswe known. ROV 6 weeks. Orders: Orders Ferritin Today K76.0 - Fatty (change of) liver, not elsewhere classified Mitochondrial Antibody Today K76.0 - Fatty (change of) liver, not elsewhere classified Smooth Muscle Antibody Today K76.0 - Fatty (change of) liver, not elsewhere classified Liver Fibrosis Pnl Today K76.0 - Fatty (change of) liver, not elsewhere classified Comprehensive Met. Panel Today K76.0 - Fatty (change of) liver, not elsewhere classified HIV Ab/Ag Today K76.0 - Fatty (change of) liver, not elsewhere classified Hepatitis A,B,C Profile Today K76.0 - Fatty (change of) liver, not elsewhere classified CHUY Reflex Titer and Pattern Today K76.0 - Fatty (change of) liver, not elsewhere classified Coding Level of Care Code Est Pt Level 4 (58435) Diagnoses Fatty liver K76.0 Tubular adenoma of colon D12.6 Time Spent (min) 38
[2024-11-27 12:05] VITALS: BP 118/76; PULSE 82; O2SAT 96; BMI 41.5
--- OUTSIDE RECORDS SUMMARY | 2024-11-27 12:51 | XMS_ITS | Clinical Summary ---
Author Organization [facility], Address [address] [place] [address] [place] [address] Phone Care Team Providers Care Budget Assistant Name Role Phone Ricco Hill MD Primary Care Provider [phone] Allergies Active Allergy Reactions Criticality Noted Date [...] Visual Foot Exam 07/07/2020 Influenza Vaccine (#1) 2025 Pneumococcal Vaccine: Peds ( 0 to 5 Years) and At-Risk Patients (6 to 49 Years) Discontinued 09/18/2012 Hepatitis B Vaccine Aged Out No longe r eligible based on patient's age to complete this topic Procedures Procedure Name Priority Date/Time Associated Diagnosis Comments LAB HR COORDINATOR Routine 09/25/2017 12:00 AM EDT from Last 3 Months or Most Recently Relevant to Health Maintenance Results * Lab Bible Teacher (09/25/2017 12:00 AM EDT) Carbon Dioxide (CO2) [...] 4.5 mg/dL [facility] 09/25/2017 [facility] Conversion LAB [id number] LICITED RESULTS Final Result [facility] from Last 3 Months or Most Recently Relevant to Health Maintenance Insurance [facility] Care Teams Budget Assistant Relationship Specialty Start Date End Date Ricco Hill MD [address] [place] [address] PCP - General 03/19/19
--- OUTSIDE RECORDS SUMMARY | 2024-11-27 12:51 | XMS_ITS | Patient Health Record ---
[facility] Organization [facility] Address [address] [facility] [place] [address] Care Team Providers Care Fire Extinguisher Repairer Name Role Phone DrewJabier Primary Care Provider Neha Roach Unavailable [phone] Yrn Bill Unavailable [phone] Allergies Allergen (clinical drug ingredient) Drug/Non Drug [...] Problem Acquired hammer toe of right foot (3394123663003951 ) Other hammer toe(s) (acquired), right foot (M20.41) Active confirmed Response to treatment, Improvemen t Problem Acquired hammer toe of left foot (9720495496335097 ) Other hammer toe(s) (acquired), left foot (M20.42) Active confirmed Response to treatment, Improvemen t Problem Polyneuropathy due to type 2 diabetes mellitus (414627193) Type 2 diabetes mellitus 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) Active confirmed Vital Signs Blood pressure diastolic 70 mm Hg 09/10/2024 Height 5ft 7in in 09/10/2024 Blood pressure systolic 128 mm Hg 09/10/2024 Weight 245 lbs 09/10/2024 BMI 38.37 kg/m2 09/10/2024 Procedures Procedure Date Ordered Date Performed Result Body Sit e 57554-SCYOIXA NAIL, 1-5 03/08/2024 N/A 63164-ORUG SKIN LESIONS, OVER 4 03/08/2024 N/A O5139-EVIMVVFX DYSTROPHIC NAILS ANY # 03/08/2024 N/A 25280-VXYHKES NAIL, 1-5 06/07/2024 N/A 63355-YAUZ SKIN LESIONS, OVER 4 06/07/2024 N/A D7687-WEKKFCDK DYSTROPHIC NAILS ANY # 06/07/2024 N/A 70003-BGQPSYM NAIL, 1-5 09/10/2024 N/A 18163-CNNE SKIN LESIONS, OVER 4 09/10/2024 N/A X4131-UEOEWLQZ DYSTROPHIC NAILS ANY # 09/10/2024 N/A Encounters Encounter Location Date Provider Diagnosis [facility] [place] [address] 03/08/2024 Yrnbelinda Bill Type 2 diabetes mellitus with diabetic polyneuropathy E11.42 ; Tinea unguium B35.1 ; Other hammer toe(s) (acquired), right foot M20.41 and Other hammer toe(s) (acquired), left foot M20.[address] [address] 06/07/2024 Yrnbelinda Bill Type 2 diabetes mellitus with diabetic polyneuropathy E11.42 ; Tinea unguium B35.1 ; Other hammer toe(s) (acquired), right foot M20.41 and Other hammer toe(s) (acquired), left foot M20.[address] [address] 09/10/2024 Yrn Bill Type 2 diabetes mellitus with diabetic polyneuropathy E11.42 and Tinea unguium B35.[address] [address] 01/08/2024 Neha Horne Assessments Encounter Date Diagnosis [...] X ray : Foot, right 3V 12/23/2022 99526-YEGQVSJ NAIL, 1-5 03/08/2024 40395-SNUXAZX NAIL, 1-5 06/07/2024 09574-HCKEWSZ NAIL, 1-5 09/10/2024 88115-XMUI SKIN LESIONS, OVER 4 09/11/19 72918-ETDB SKIN LESIONS, OVER 4 03/08/20 57717-KYXR SKIN LESIONS, OVER 4 06/07/19 M2291-ZAMKBJKY DYSTROPHIC NAILS ANY # U5157-SJGXOSZL DYSTROPHIC NAILS ANY # P4462-NFWXGJFJ DYSTROPHIC NAILS ANY # Next Appt Details Provider Name:Yrn Bill , 12/13/2024 12:15:00 PM, [address] [facility], [place], [address], Insurance Providers Payer Name Payer Address Payer Phone Subscriber Number Group Number Insured Name Patient Relationship to Insured Coverage Start Date Coverage End Date [facility] 65 Medicare [address] [place] [address] [id number] Janna Iyer Self - patient is the insured Medical (General) History Medical History History ICD Code Arthritis CAD (Cholesterol) Depression type II diabetes High blood pressure keloids Reflux ( GERD) Vascular phlebitis (clots) Measles Mumps Chicken pox Bone implants/screws Transfusions Surgical History Surgery Date(Month/Year) TK R+ R 10.4 02/09/16 TK R+ R 9. 03 06/02/2016
== END 2024-11-27 12:32 | disposition home or self-care (01) ==
LOC: HO.HGI 11:45
PROVIDERS: PCP Internal Medicine; Visit Provider Nurse Practitioner
DX: K76.0 Fatty (change of) liver, not elsewhere classified (principal); D12.6 Benign neoplasm of colon, unspecified
CPT/HCPCS: 99214

== ENCOUNTER 2024-11-29 12:26 | Outpatient (AMB) | payer MEDICARE, SELFPAY ==
--- OUTSIDE RECORDS SUMMARY | 2023-10-09 15:25 | XMS_ITS | Encounter Summary ---
Author Organization [facility] Address [address] [place] [address] Phone Care Team Providers Care General Operator Name Role Phone Ricco Hill MD Primary Care Provider Unavailabl e Encounter Details Date Type Department Care Team (Late st Contact Info) Description 10/09/2023 3:25 PM EDT Hospital Encounter [facility] [address] [place] [phone] Kisha Roland DNP [address] [place] [address] [email or web address] Social History Tobacco Use Types Packs/Day Years [...] clinician's provided indication for this examination in [facility]: Pain; Swelling; ? fx COMPARISON: None available. FINDINGS: No fracture. Normal alignment. 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 Procedure Note Jose Real MD, MPH - 10/09/2023 XR WRIST 3 OR MORE VIEWS (LEFT), XR HAND 3 OR MORE VIEWS (LEFT) Referring clinician's provided indication for this examination in [facility]:Pain; Swelling; ? fx COMPARISON: None available. FINDINGS: No fracture. Normal alignment. 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 IMPRESSION: No fracture or dislocation. Kisha Roland [facility] IMG XR UPPER EXTREMITY Final Result documented in this encounter Visit Diagnoses Not on filedocumented in this encounter Care Teams General Operator Relationship Specialty Start Date End Date Ricco Hill MD PCP - General Internal Medicine 10/09/23 documented as of this encounter Additional Source Comments The information contained in this document represents components of the legal health record. It is not the complete legal health record.[facility]
--- NOTE | 2024-11-29 12:28 | MHC.PC.OV ---
Vital Signs 11/29/24 12:29 Height 5 ft 7 in Weight 260 lb BMI 40.7 BP 118/72 Blood Pressure Location Lt brachial Position Sitting Pulse 98 Pulse Source Pulse Oximeter Temp 97.3 F Temp Source Temporal Artery Scan Pulse Oximetry (%) 94 Oxygen Delivery Method Room Air Intake Visit Reasons: Annual exam Allergies medroxyprogesterone (Provera) Allergy (Intermediate, Verified 11/29/24 12:37) SKIN PEELING niacin (From NIASPAN EXTENDED-RELEASE) Allergy (Intermediate, Verified 11/29/24 12:37) facial flushing atorvastatin (From Lipitor) Allergy (Mild, Verified 11/29/24 12:37) MUSCLE ACHES, myalgia gemfibrozil (From Lopid) Allergy (Mild, Verified 11/29/24 12:37) MUSCLE ACHES fluconazole (From DIFLUCAN) Allergy (Unknown, Verified 11/29/24 12:37) PER H&P empagliflozin (From Jardiance) Adverse Reaction (Mild, Verified 11/29/24 12:37) urinary incontinence nitroglycerin (From Nitro-Dur) Adverse Reaction (Mild, Verified 11/29/24 12:37) LOW BLOOD PRESSURE ozempic Adverse Reaction (Intermediate, Uncoded 11/29/24 12:37) Headache Medication List - Last Reconciled 11/29/24 by Jabier Russell MD apixaban (Eliquis) 5 mg PO BID Divina Reid U-100 Insulin (insulin glargine) 40 units (0.4 mL) subcut BID 90 days NS blood-glucose sensor (FreeStyle Ara 3 Plus Sensor device) As directed change every 14 days blood-glucose,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,cont (FreeStyle Ara 3 [place]) As directed calcium carbonate-vitamin D3 (Calcium 600 + D(3)) 600 mg PO DAILY cholecalciferol (vitamin D3) 50 mcg PO DAILY citalopram 20 mg PO DAILY 90 days hydrochlorothiazide 12.5 mg PO DAILY lisinopril 20 mg PO DAILY 90 days metformin 500 mg PO DAILY 90 days mirabegron ER (Myrbetriq) 50 mg PO DAILY 90 days omeprazole 20 mg PO DAILY pen needle, 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) BID PRN tirzepatide (Mounjaro) 5 mg (0.5 mL) subcut QWEEK 84 days vitamin B complex 1 tab PO DAILY Tobacco use date assessed: 11/29/24 Fall risk assessment: No Falls in past year Last assessed Fall Risk: 11/29/24 Dental Screening Dental Screen Date: 11/29/24 Did you have a dental visit in the last 12 months?: Yes Did you have a dental problem in the last 6 months where you did not have access to dental care?: No Was dental information given to patient?: Patient has dentist [facility] Medical History Type 2 diabetes mellitus Urgency incontinence Fatty liver Anxiety and depression Shoulder pain, bilateral Environmental allergies LLL pneumonia Encounter for annual routine gynecological examination Contusion of foot Long-term insulin use Surgical History History of revision of total replacement of right knee joint History of colonoscopy History of total left knee replacement (TKR) History of total right knee replacement (TKR) History of breast biopsy History of tonsillectomy Family History Father Type 2 diabetes mellitus Polymyalgia Mother Cancer of thyroid Sister Breast cancer Sister Leukemia Brother Diabetes mellitus HTN (hypertension) High cholesterol Social History (Updated 11/29/24 @ 12:52 by Jabier Russell MD) Household Members: None Housing: House Are you a primary career technical counselor to a significant other at home: No Do you presently have visiting nurse or other home services: No Alcohol intake: former Comment: quit 1999 Patient Tobacco Use Status: Former Tobacco user Tobacco use type: Cigarette Years Smoked: stopped 1984 e-Cigarette/Vaping Use: Never Used Advance Directives Date on File: 03/05/20 service: No Current occupational status: employed Cognitive needs: No Hearing needs: No Vision needs: Yes Female Reproductive History Menstrual Age of Menarche: 12 Questionnaire PHQ-9 Over the last 2 weeks, how often have you been bothered by any of the following problems? 1. Little interest or pleasure in doing things: more than half the days 2. Feeling down, depressed, or hopeless: nearly every day 3. Trouble falling or staying asleep, or sleeping too much: several days 4. Feeling tired or having little energy: not at all 5. Poor appetite or overeating: not at all 6. Feeling bad about yourself - or that you are a failure or have let yourself or your family down: not at all 7. Trouble concentrating on things, such as reading the newspaper or watching television: not at all 8. Moving or speaking so slowly that other people could have noticed. Or the opposite - being so fidgety or restless that you have been moving around a lot more than usual: not at all 9. Thoughts that you would be better off or of hurting yourself in some way: not at all Total score: 6 Depression Screening Interpretation: Positive Depression Screening Done: Yes Source: Developed by Drs. Roney Mitchell, Molly Duran, Earl Muhammad and colleagues, with an educational willem from [employer]. Thrive Questionnaire Date Thrive assessed: 09/23/24 I am a: Patient What is your living situation today?: I have a steady place to live Within the past 12 months, did the food you bought not last and you didn't have the money to get more?: Never true Within the past 12 months, did you worry whether your food would run out before you got money to buy more?: Never true Do you have trouble paying for medicines?: No Do you have trouble getting transportation to medical appointments?: No Do you have trouble paying your heating and electricity bill?: No Do you have trouble taking care of your child, family member or friend?: No Do you have trouble with day-to-day activities such as bathing, preparing meals, shopping, managing finances, etc.?: No Are you currently unemployed and looking for a job?: No Are you interested in more education?: No Please select the resources that you would like help with: None Currently or been in a relationship where the following occur: No concerns reported THRIVE Score: 0 AUDIT C Alcohol Use Questionnaire (AUDIT-C) 1. How often do you have a drink containing alcohol?: Never 3. How often do you have six or more drinks on one occasion?: Never Total Score: 0 LEX-7 AMB Questionnaire LEX-7 Date LEX - 7 assessed: 09/23/24 Feeling nervous, anxious, or on edge: 1 = Several days Not being able to stop or control worryin = Not at all Worrying too much about different things: 0 = Not at all Trouble relaxin = Not at all Being so restless that it is hard to sit still: 0 = Not at all Becoming easily annoyed or irritable: 0 = Not at all Feeling afraid as if something awful might happen: 0 = Not at all Total LEX-7 score (0-4 normal; 5-9 mild; 10-14 moderate; 15-21 severe): 1 Source: Developed by Drs. Roney Mitchell, Molly Duran, Earl Muhammad and colleagues, with an educational willem from [employer]. Review of Systems Const Denies poor appetite and Denies weakness Eyes Denies no additional complaints ENT Reports Normal hearing present, Denies dizziness, Denies nasal congestion, Denies tinnitus and Denies sore throat Card Denies chest pain, Denies syncope, Denies rapid heart rate and Denies dyspnea Resp Denies cough and Denies dyspnea GI Denies change in stool character, Reports constipation, Denies diarrhea, Denies nausea and Denies vomiting Denies urinary frequency, Denies difficulty voiding and Denies dysuria Neuro Reports Normal hearing present, Denies confusion, Denies dizziness, Denies syncope and Denies weakness Psych Denies confusion Physical exam (Primary Care) Vital Signs: Last Vital Signs Temp 97.3 F 11/29/24 12:29 Pulse 98 11/29/24 12:29 BP 118/72 11/29/24 12:29 Pulse Ox 94 11/29/24 12:29 Oxygen Delivery Method Room Air 11/29/24 12:29 BMI result Body Mass Index 40.7 Tobacco/Smoking Status: Tobacco use Status Tobacco use date assessed 11/29/24 11/29/24 12:39 Patient Tobacco Use Status Former Tobacco user 11/29/24 12:52 Tobacco use type Cigarette 11/29/24 12:52 e-Cigarette/Vaping Use Never Used 11/29/24 12:52 PHQ-9: PHQ-9 Score PHQ-9: Total score 6 11/29/24 12:47 Depression Screening Interpretation: Positive Thrive Assessment: Date of Thrive Assessment Date Thrive assessed 09/23/24 11/29/24 12:30 Currently or been in a relationship where the following occur: No concerns reported Const General: No confusion Orientation/consciousness: No confusion HENMT Head: Yes normocephalic Ears: external ears normal and TM's normal bilaterally Face and sinus: Yes normal facial exam Mouth: moist mucous membranes Throat: Yes tonsils normal Eyes Conjunctivae: conjunctivae normal Pupils: Equal, round and reactive pupils present and Pupil accommodation reflex normal Direct Ophthalmoscopy: normal light reflex Neck Neck: No lymphadenopathy Thyroid: Thyroid normal Chest Chest palpation & inspection: normal inspection of the chest Resp Effort & Inspection: normal respiratory effort and no audible wheezes Auscultation: clear to auscultation bilaterally, no crackles, no wheezes and lung sounds not diminished Cardio Rate: regular rate Rhythm: regular rhythm Peripheral pulses: radial pulses present and dorsalis pedis present GI Other: seeing distribution spec Palpation (GI): no masses Auscultation: normal bowel sounds and normoactive bowel sounds Rectal Exam - Female: deferred Skin General skin exam: no rashes or lesions noted Rashes: no rashes Neuro General: No confusion Cranial nerves: Yes Equal, round and reactive pupils present and Yes Normal hearing present Cognition (Neuro): normal cognition Gait exam (Neuro): Normal gait present Motor exam (neuro): 5/5 motor strength present throughout Deep tendon reflexes (DTR's): Right brachioradialis reflex intensity grade: 2+, Left brachioradialis reflex intensity grade: 2+, Right patellar reflex intensity grade: 2+ and Left patellar reflex intensity grade: 2+ Extrem Other: pedal pulse and pin prick good General: No edema Coding Level of Care Code Est Pt Prev Care >65y(42631) Diagnoses Annual physical exam Z00.00 Type 2 diabetes mellitus with diabetic nephropathy, with long-term current use of insulin E11.21; Z79.4 Diabetes mellitus complication detail: with nephropathy Diabetes mellitus complication status: with kidney complications Diabetes mellitus [facility] insulin use: 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 Decrease salt intake and exercise patient takes lisinopril 20 mg once a day hydrochlorothiazide 12.5 mg once a day (4) Recurrent deep vein thrombosis (DVT): Code(s): I82.409 - Acute embolism and thrombosis of unspecified deep veins of unspecified lower extremity Category: Medical Plan: Continue with anticoagulation (5) Morbid obesity: Code(s): E66.01 - Morbid (severe) obesity due to excess calories Category: Medical Plan: Diet and exercise continue with Mounjaro (6) Fatty liver: Code(s): K76.0 - Fatty (change of) liver, not elsewhere classified Category: Medical Plan: Low-fat diet and exercise (7) Chronic kidney disease, stage 2 (mild): Code(s): N18.2 - Chronic kidney disease, stage 2 (mild) Category: Medical Plan: Continue to monitor. Continue to follow-up with Nephrology (8) Urinary incontinence, mixed: Code(s): N39.46 - Mixed incontinence Category: Medical Plan: Patient has seen Urology and has been placed on Myrbetriq (9) Generalized anxiety disorder: Code(s): F41.1 - Generalized anxiety disorder Category: Medical Plan: Continue with citalopram Plan History of Present Illness The patient is a 69-year-old female presenting for an annual physical examination and management of chronic conditions. The patient has a history of morbid obesity, with a recent weight loss of 5 pounds. She is managing her weight with Mounjaro, which she has been on for a month or two at a dose of 5 mg weekly. Despite this, her weight loss has been slow, and there is a consideration to increase the dose if weight reduction does not progress. She has diabetes mellitus, with a recent hemoglobin A1c of 6.7% in September, indicating good control. Her blood sugar was noted to be 136 mg/dL, and she is on Basaglar insulin, Metformin, and Mounjaro for management. She follows up with endocrinology for her diabetes care. The patient has chronic kidney disease with a glomerular filtration rate of 42 mL/min and a creatinine level of 1.26 mg/dL. She has nephropathy and is under nephrology care. Her urine test showed proteinuria, and she is on medication to manage this condition. She has a history of recurrent deep vein thrombosis and is on anticoagulation therapy with Eliquis. Her hypertension is managed with Lisinopril and Hydrochlorothiazide, and her blood pressure is reported to be well-controlled. The patient has generalized anxiety disorder and is on Citalopram for management. She has a history of asthma and hepatic steatosis, with no recent exacerbations reported. She reports left shoulder pain, which was noted during her last visit in July. She also has mixed urinary incontinence and is under urology care, taking Myrbetriq for management. Her preventative care includes a colonoscopy follow-up in 5 years due to a tubular adenoma found in June 2024, a mammogram in November 2024, and a normal bone density test in December 2023. She is up to date with her vaccinations, including shingles, tetanus, RSV, and pneumonia shots. Health Maintenance - Colonoscopy follow-up in 5 years due to tubular adenoma - Mammogram in November 2024 - Bone density normal in December 2023 - Vaccinations up to date: shingles, tetanus, RSV, pneumonia Social History - Alcohol: Quit 10-20 years ago - Tobacco: No current use - Recreational drugs: No use - Diet: Avoids fried foods, fast foods, and limits egg yolk intake - Exercise: Engages in pool exercises Review of Systems - General: Denies fever, dizziness, nausea, vomiting - Cardiovascular: Denies chest pain, dyspnea on exertion - Respiratory: Denies shortness of breath, cough - Gastrointestinal: Denies dysphagia, heartburn controlled with omeprazole - Genitourinary: Reports nocturia 1-2 times per night - Neurological: Denies syncope, reports no hearing issues Physical Exam General: Cooperative, morbidly obese, comfortable, no acute distress, and well developed Orientation: Patient oriented x3 Limitations: No limitations Head: Normal to inspection Ears: Hearing grossly normal bilaterally Nose: Normal external nose present Face and sinus: Normal facial exam Eyes: Appearance normal, both eyes and all related structures Neck: Normal visual inspection and Yes full ROM Respiratory: Decreased basagular use from 44 to 40, normal respiratory effort, and able to speak in complete sentences. Clear to auscultation bilaterally Cardiovascular: Regular rate and rhythm. Normal S1 and S2 GI: Normal to inspection. Soft to palpation and nontender Skin: No rashes or lesions noted Neuro: Patient oriented x3 Extremities: Normal to inspection Results - Labs: Hemoglobin A1c 6.7% (September), blood sugar 136 mg/dL, creatinine 1.26 mg/dL, GFR 42 mL/min, calcium 10.4 mg/dL, LDL 109 mg/dL, triglycerides 278 mg/dL - Urine test: Proteinuria present Plan The patient will continue with her current regimen of Basaglar insulin, Metformin, and Mounjaro for diabetes management, with a follow-up scheduled with endocrinology to assess the need for dose adjustment if weight loss remains insufficient. Her hypertension management will continue with Lisinopril and Hydrochlorothiazide, and her blood pressure will be monitored regularly. For her chronic kidney disease, she will maintain her nephrology follow-up, and her proteinuria will be managed with current medications. The patient is advised to continue her anticoagulation therapy with Eliquis for recurrent deep vein thrombosis. Her generalized anxiety disorder will be managed with Citalopram, and she is encouraged to seek counseling for additional support. For her mixed urinary incontinence, she will continue with Myrbetriq and follow up with urology as needed. Preventative care measures include scheduling a colonoscopy in five years due to the presence of a tubular adenoma, and maintaining up-to-date vaccinations. She is advised to continue her current diet and exercise regimen, focusing on reducing cholesterol intake and increasing physical activity to improve her lipid profile. Patient was informed and verbally consented to the use of an ambient scribe for clinic note documentation during this visit. Discussion Notes During the visit, I discussed with the patient the importance of maintaining her current medication regimen for diabetes, hypertension, and chronic kidney disease. We reviewed her recent lab results, noting the need to monitor her cholesterol levels and adjust her diet accordingly. I emphasized the significance of her preventative care schedule, including the upcoming colonoscopy and maintaining her vaccination status. We also talked about the potential need to adjust her Mounjaro dosage if her weight loss does not progress as desired. I encouraged her to continue her exercise routine and seek counseling for her anxiety disorder. Patient Instructions - Continue taking Basaglar insulin, Metformin, and Mounjaro as prescribed. - Monitor blood pressure regularly and continue Lisinopril and Hydrochlorothiazide. - Follow up with nephrology for kidney disease management. - Maintain anticoagulation therapy with Eliquis. - Continue Citalopram for anxiety and seek counseling support. - Follow up with urology for urinary incontinence management. - Schedule a colonoscopy in five years and keep vaccinations up to date. - Focus on a low-cholesterol diet and increase physical activity. Orders: Referrals Psychiatry Referral F41.1 - Generalized anxiety disorder
--- OUTSIDE RECORDS SUMMARY | 2024-11-29 12:28 | XMS_ITS | Patient Health Record ---
Author Organization [facility] Address [address] [facility] [place] [address] Care Team Providers Care Tail Trimmer Name Role Phone DrewJabier Primary Care Provider Neha Roach Unavailable [phone] Yrn Bill Unavailable [phone] Allergies Allergen (clinical drug ingredient) Drug/Non Drug [...] Problem Acquired hammer toe of right foot (0446237330604015 ) Other hammer toe(s) (acquired), right foot (M20.41) Active confirmed Response to treatment, Improvemen t Problem Acquired hammer toe of left foot (8301945550898019 ) Other hammer toe(s) (acquired), left foot (M20.42) Active confirmed Response to treatment, Improvemen t Problem Polyneuropathy due to type 2 diabetes mellitus (076423341) Type 2 diabetes mellitus 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) Active confirmed Vital Signs Blood pressure diastolic 70 mm Hg 09/10/2024 Height 5ft 7in in 09/10/2024 Blood pressure systolic 128 mm Hg 09/10/2024 Weight 245 lbs 09/10/2024 BMI 38.37 kg/m2 09/10/2024 Procedures Procedure Date Ordered Date Performed Result Body Sit e 97016-EXJHKUI NAIL, 1-5 03/08/2024 N/A 64440-YPEW SKIN LESIONS, OVER 4 03/08/2024 N/A G6628-WYCEIFFN DYSTROPHIC NAILS ANY # 03/08/2024 N/A 31028-PFFTYTI NAIL, 1-5 06/07/2024 N/A 52303-TFCN SKIN LESIONS, OVER 4 06/07/2024 N/A M8262-NZREWWJS DYSTROPHIC NAILS ANY # 06/07/2024 N/A 10950-RNDZZOU NAIL, 1-5 09/10/2024 N/A 25507-PQNM SKIN LESIONS, OVER 4 09/10/2024 N/A O9632-YYPHRUXA DYSTROPHIC NAILS ANY # 09/10/2024 N/A Encounters Encounter Location Date Provider Diagnosis [facility] [place] [address] 03/08/2024 Yrnbelinda Bill Type 2 diabetes mellitus with diabetic polyneuropathy E11.42 ; Tinea unguium B35.1 ; Other hammer toe(s) (acquired), right foot M20.41 and Other hammer toe(s) (acquired), left foot M20.[address] [address] 06/07/2024 Ynrbelinda Bill Type 2 diabetes mellitus with diabetic polyneuropathy E11.42 ; Tinea unguium B35.1 ; Other hammer toe(s) (acquired), right foot M20.41 and Other hammer toe(s) (acquired), left foot M20.[address] [address] 09/10/2024 Yrn Bill Type 2 diabetes mellitus with diabetic polyneuropathy E11.42 and Tinea unguium B35.[address] [address] 01/08/2024 Neha Horne Assessments Encounter Date Diagnosis [...] X ray : Foot, right 3V 12/23/2022 50614-AOBGNHF NAIL, 1-5 03/08/2024 10680-CYWWAQV NAIL, 1-5 06/07/2024 76034-VVPLOWU NAIL, 1-5 09/10/2024 18730-ZCHW SKIN LESIONS, OVER 4 09/11/19 35076-EZXR SKIN LESIONS, OVER 4 03/08/20 89247-KZGA SKIN LESIONS, OVER 4 06/07/19 P9434-RDWGTEMY DYSTROPHIC NAILS ANY # I9179-VAFEKVRM DYSTROPHIC NAILS ANY # K1207-YZTBVMLV DYSTROPHIC NAILS ANY # Next Appt Details Provider Name:Yrn Bill , 12/13/2024 12:15:00 PM, [address] [facility], [place], [address], Insurance Providers Payer Name Payer Address Payer Phone Subscriber Number Group Number Insured Name Patient Relationship to Insured Coverage Start Date Coverage End Date [facility] 65 Medicare [address] [place] [address] [id number] Janna Iyer Self - patient is the insured Medical (General) History Medical History History ICD Code Arthritis CAD (Cholesterol) Depression type II diabetes High blood pressure keloids Reflux ( GERD) Vascular phlebitis (clots) Measles Mumps Chicken pox Bone implants/screws Transfusions Surgical History Surgery Date(Month/Year) TK R+ R 10.4 02/09/16 TK R+ R 9. 03 06/02/2016
--- OUTSIDE RECORDS SUMMARY | 2024-11-29 12:28 | XMS_ITS | Clinical Summary ---
Author Organization [facility], Address [address] [place] [address] [place] [address] Phone Care Team Providers Care Technology Resource Teacher Name Role Phone Ricco Hill MD Primary Care Provider [phone] Allergies Active Allergy Reactions Criticality Noted Date [...] Name Priority Date/Time Associated Diagnosis Comments LAB SYSTEM DEVELOPER ASSOCIATE MANAGER Routine 09/25/2017 12:00 AM EDT from Last 3 Months or Most Recently Relevant to Health Maintenance Results * Lab Deputy Coroner (09/25/2017 12:00 AM EDT) Carbon Dioxide (CO2) [...] 4.5 mg/dL [facility] 09/25/2017 [facility] Conversion LAB [id number] LICITED RESULTS Final Result [facility] from Last 3 Months or Most Recently Relevant to Health Maintenance Insurance [facility] Care Teams Technology Resource Teacher Relationship Specialty Start Date End Date Ricco Hill MD [address] [place] [address] PCP - General 03/19/19
[2024-11-29 12:29] VITALS: BP 118/72; PULSE 98; TEMP 36.3; O2SAT 94; BMI 40.7
== END 2024-11-29 13:13 | disposition home or self-care (01) ==
LOC: HO.HMCH 12:26
PROVIDERS: PCP Internal Medicine; Visit Provider Internal Medicine
DX: Z00.00 Encounter for general adult medical examination without abnormal findings (principal); I12.9 Hypertensive chronic kidney disease with stage 1 through stage 4 chronic kidney disease, or unspecified chronic kidney disease; E11.21 Type 2 diabetes mellitus with diabetic nephropathy; Z79.4 Long term (current) use of insulin; I82.409 Acute embolism and thrombosis of unspecified deep veins of unspecified lower extremity; E66.01 Morbid (severe) obesity due to excess calories; K76.0 Fatty (change of) liver, not elsewhere classified; N18.2 Chronic kidney disease, stage 2 (mild); N39.46 Mixed incontinence; F41.1 Generalized anxiety disorder

== ENCOUNTER → 2024-11-29 12:26 | Outpatient (BNVA) | payer MEDICARE, SELFPAY | PROVIDERS: PCP Internal Medicine; Visit Provider Internal Medicine | DX: Z00.00 Encounter for general adult medical examination without abnormal findings (principal); E11.21 Type 2 diabetes mellitus with diabetic nephropathy; E11.22 Type 2 diabetes mellitus with diabetic chronic kidney disease; I12.9 Hypertensive chronic kidney disease with stage 1 through stage 4 chronic kidney disease, or unspecified chronic kidney disease; N18.2 Chronic kidney disease, stage 2 (mild); I82.409 Acute embolism and thrombosis of unspecified deep veins of unspecified lower extremity; E66.01 Morbid (severe) obesity due to excess calories; K76.0 Fatty (change of) liver, not elsewhere classified; N39.46 Mixed incontinence; F41.1 Generalized anxiety disorder; Z79.899 Other long term (current) drug therapy; Z79.01 Long term (current) use of anticoagulants; Z79.4 Long term (current) use of insulin | CPT/HCPCS: 96127; 99397 ==

== ENCOUNTER 2024-12-06 10:45 | Outpatient (AMB) | payer MEDICARE, SELFPAY ==
--- OUTSIDE RECORDS SUMMARY | 2023-10-09 15:25 | XMS_ITS | Encounter Summary ---
Author Organization [facility] Address [address] [place] [address] Phone Care Team Providers Care Pumper Gauger Apprentice Name Role Phone Ricco Hill MD Primary Care Provider [phone] Encounter Details Date Type Department Care Team (Late st Contact Info) Description 10/09/2023 3:25 PM EDT Hospital Encounter [facility] [address] [place] [phone] Kisha Roland DNP [address] [place] [address] [email or web address] Social History Tobacco Use Types Packs/Day Years [...] clinician's provided indication for this examination in [facility]: Pain; Swelling; ? fx COMPARISON: None available. FINDINGS: No fracture. Normal alignment. 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 Procedure Note Jose Real MD, MPH - 10/09/2023 XR WRIST 3 OR MORE VIEWS (LEFT), XR HAND 3 OR MORE VIEWS (LEFT) Referring clinician's provided indication for this examination in [facility]:Pain; Swelling; ? fx COMPARISON: None available. FINDINGS: No fracture. Normal alignment. 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 IMPRESSION: No fracture or dislocation. Kisha Roland [facility] IMG XR UPPER EXTREMITY Final Result documented in this encounter Visit Diagnoses Not on filedocumented in this encounter Care Teams Pumper Gauger Apprentice Relationship Specialty Start Date End Date Ricco Hill MD [facility] [place] [address] PCP - General Internal Medicine 10/09/23 documented as of this encounter Additional Source Comments The information contained in this document represents components of the legal health record. It is not the complete legal health record.[facility]
--- OUTSIDE RECORDS SUMMARY | 2024-12-06 10:53 | XMS_ITS | Patient Health Record ---
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 Name Role Phone DrewJabier Primary Care Provider Neha Roach Unavailable [phone] Yrn Bill Unavailable [phone] Allergies Allergen (clinical drug ingredient) Drug/Non Drug [...] Problem Acquired hammer toe of right foot ([id number] ) Other hammer toe(s) (acquired), right foot (M20.41) Active confirmed Response to treatment, Improvemen t Problem Acquired hammer toe of left foot ([id number] ) Other hammer toe(s) (acquired), left foot (M20.42) Active confirmed Response to treatment, Improvemen t Problem Polyneuropathy due to type 2 diabetes mellitus ([id number]) Type 2 diabetes mellitus 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) Active confirmed Vital Signs Blood pressure diastolic 70 mm Hg 09/10/2024 Height 5ft 7in in 09/10/2024 Blood pressure systolic 128 mm Hg 09/10/2024 Weight 245 lbs 09/10/2024 BMI 38.37 kg/m2 09/10/2024 Procedures Procedure Date Ordered Date Performed Result Body Sit e 78523-RTNEGJY NAIL, 1-5 03/08/2024 N/A 37827-GZZO SKIN LESIONS, OVER 4 03/08/2024 N/A I7824-CKUUVOCK DYSTROPHIC NAILS ANY # 03/08/2024 N/A 06332-RKCRNLN NAIL, 1-5 06/07/2024 N/A 36285-RNMT SKIN LESIONS, OVER 4 06/07/2024 N/A X6850-VIMIOITW DYSTROPHIC NAILS ANY # 06/07/2024 N/A 25872-ZDGCAJC NAIL, 1-5 09/10/2024 N/A 78144-UPRJ SKIN LESIONS, OVER 4 09/10/2024 N/A B1742-ZZEPPCHU DYSTROPHIC NAILS ANY # 09/10/2024 N/A Encounters Encounter Location Date Provider Diagnosis [facility] [address] [place] [address] 03/08/2024 Yrnbelinda Bill Type 2 diabetes mellitus with diabetic polyneuropathy E11.42 ; Tinea unguium B35.1 ; Other hammer toe(s) (acquired), right foot M20.41 and Other hammer toe(s) (acquired), left foot M20.[address] [address] 06/07/2024 Yrnbelinda Bill Type 2 diabetes mellitus with diabetic polyneuropathy E11.42 ; Tinea unguium B35.1 ; Other hammer toe(s) (acquired), right foot M20.41 and Other hammer toe(s) (acquired), left foot M20.[address] [address] 09/10/2024 Yrn Bill Type 2 diabetes mellitus with diabetic polyneuropathy E11.42 and Tinea unguium B35.[address] [address] 01/08/2024 Neha Horne Assessments Encounter Date Diagnosis [...] X ray : Foot, right 3V 12/23/2022 29721-LGSEHAO NAIL, 1-5 03/08/2024 97214-JDWJWIZ NAIL, 1-5 06/07/2024 54998-REQGVBD NAIL, 1-5 09/10/2024 50940-DAOJ SKIN LESIONS, OVER 4 09/11/19 98050-USZT SKIN LESIONS, OVER 4 03/08/20 99790-HMXZ SKIN LESIONS, OVER 4 06/07/19 D5344-QHTNOMMG DYSTROPHIC NAILS ANY # R4352-QJGTVZYH DYSTROPHIC NAILS ANY # T5989-SSFIWSMM DYSTROPHIC NAILS ANY # Next Appt Details Provider Name:Yrn Bill , 12/13/2024 12:15:00 PM, [address] [facility], [place], [address], Insurance Providers Payer Name Payer Address Payer Phone Subscriber Number Group Number Insured Name Patient Relationship to Insured Coverage Start Date Coverage End Date [facility] 65 Medicare [address] [place] [address] [id number] Janna Iyer Self - patient is the insured Medical (General) History Medical History History ICD Code Arthritis CAD (Cholesterol) Depression type II diabetes High blood pressure keloids Reflux ( GERD) Vascular phlebitis (clots) Measles Mumps Chicken pox Bone implants/screws Transfusions Surgical History Surgery Date(Month/Year) TK R+ R 10.4 02/09/16 TK R+ R 9. 03 06/02/2016
--- OUTSIDE RECORDS SUMMARY | 2024-12-06 10:53 | XMS_ITS | Clinical Summary ---
Author Organization [facility], Address [address] [place] [address] [place] [address] Phone Care Team Providers Care Fiberglass Roller Name Role Phone Ricco Hill MD Primary Care Provider [phone] Allergies Active Allergy Reactions Criticality Noted Date [...] Name Priority Date/Time Associated Diagnosis Comments LAB BEHAVIOR THERAPIST Routine 09/25/2017 12:00 AM EDT from Last 3 Months or Most Recently Relevant to Health Maintenance Results * Lab Professor Of Languages (09/25/2017 12:00 AM EDT) Carbon Dioxide (CO2) [...] 4.5 mg/dL [facility] 09/25/2017 [facility] Conversion LAB [id number] LICITED RESULTS Final Result K[facility]MA from Last 3 Months or Most Recently Relevant to Health Maintenance Insurance [facility] Care Teams Fiberglass Roller Relationship Specialty Start Date End Date Ricco Hill MD [address] [place] [address] PCP - General 03/19/19
--- NOTE | 2024-12-06 11:22 | MHC.OFFVIS ---
Intake Visit Reasons: UroD Allergies medroxyprogesterone (Provera) Allergy (Intermediate, Verified 11/29/24 12:37) SKIN PEELING niacin (From NIASPAN EXTENDED-RELEASE) Allergy (Intermediate, Verified 11/29/24 12:37) facial flushing atorvastatin (From Lipitor) Allergy (Mild, Verified 11/29/24 12:37) MUSCLE ACHES, myalgia gemfibrozil (From Lopid) Allergy (Mild, Verified 11/29/24 12:37) MUSCLE ACHES fluconazole (From DIFLUCAN) Allergy (Unknown, Verified 11/29/24 12:37) PER H&P empagliflozin (From Jardiance) Adverse Reaction (Mild, Verified 11/29/24 12:37) urinary incontinence nitroglycerin (From Nitro-Dur) Adverse Reaction (Mild, Verified 11/29/24 12:37) LOW BLOOD PRESSURE ozempic Adverse Reaction (Intermediate, Uncoded 11/29/24 12:37) Headache Medication List - Last Reconciled 12/07/24 by Chelsey Ratliff MD apixaban (Eliquis) 5 mg PO BID Sowmyaaglshirley Reid U-100 Insulin (insulin glargine) 40 units (0.4 mL) subcut BID 90 days NS blood-glucose sensor (CLEARStyle Ara 3 Plus Sensor device) As directed change every 14 days blood-glucose,it infrastructure architect,cont (FreeStyle Ara 3 [place]) As directed calcium carbonate-vitamin D3 (Calcium 600 + D(3)) 600 mg PO DAILY cholecalciferol (vitamin D3) 50 mcg PO DAILY citalopram 20 mg PO DAILY 90 days hydrochlorothiazide 12.5 mg PO DAILY lisinopril 20 mg PO DAILY 90 days metformin 500 mg PO DAILY 90 days mirabegron ER (Myrbetriq) 50 mg PO DAILY 90 days omeprazole 20 mg PO DAILY pen needle, 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) BID PRN solifenacin (Vesicare) 5 mg PO DAILY tirzepatide (Mounjaro) 5 mg (0.5 mL) subcut QWEEK 84 days vitamin B complex 1 tab PO DAILY HPI Comments Details: 12/06/24--Janna is here for urodynamics. The patient has complaints of urinary incontinence. Interpretation: During the filling phase there was sensory urgency was noted, strong desire was noted at 164 mL. detrusor overactivity noted during the filling phase. EMG- Appropriate changes in the waveforms were noted through out the study. Discussed OAB care pathway, including fluid management, dietary modifications, including caffeine intake. Bladder control strategies, including pelvic floor exercises. Discessed that urinary leakage can be related to pelvic floor muscles weakness and/or bladder spasms. Treatment options discussed for OAB included anticholinergics/antimuscarinics, neuromodulation, bladder botox injection. Plan combination therapy, resume Myrbetriq, add vesicare 5 mg at bedtime. [facility] Medical History Type 2 diabetes mellitus Urgency incontinence Fatty liver Anxiety and depression Shoulder pain, bilateral Environmental allergies LLL pneumonia Encounter for annual routine gynecological examination Contusion of foot Long-term insulin use Surgical History History of revision of total replacement of right knee joint History of colonoscopy History of total left knee replacement (TKR) History of total right knee replacement (TKR) History of breast biopsy History of tonsillectomy Family History Father Type 2 diabetes mellitus Polymyalgia Mother Cancer of thyroid Sister Breast cancer Sister Leukemia Brother Diabetes mellitus HTN (hypertension) High cholesterol Social History Household Members: None Housing: House Are you a primary acute care clinical nurse specialist to a significant other at home: No Do you presently have visiting nurse or other home services: No Alcohol intake: former Comment: quit 1999 Patient Tobacco Use Status: Former Tobacco user Tobacco use type: Cigarette Years Smoked: stopped 1984 e-Cigarette/Vaping Use: Never Used Advance Directives Date on File: 03/05/20 service: No Current occupational status: employed Cognitive needs: No Hearing needs: No Vision needs: Yes Female Reproductive History Menstrual Age of Menarche: 12 Review of Systems Const All systems reviewed & are unremarkable except as noted in HPI and below Reports no additional complaints Eyes Reports no additional complaints ENT Reports no additional complaints Card Reports no additional complaints Resp Reports no additional complaints GI Reports no additional complaints Reports as per HPI Musc Reports no additional complaints Skin/Breast Reports system reviewed and no additional complaints, except as documented Neuro Reports no additional complaints Psych Reports no additional complaints Endo Reports no additional complaints Bernard/Lymph Reports no additional complaints Aller/Immun Reports no additional complaints Office Procedures Urodynamic Studies Consent Discussed risk and benefit or proposed procedure with the patient. Information consent for procedure given to the patient. Discussed technical aspects, risks, benefits and alternatives in full. Addressed all of the patient's questions and concerns regarding the procedure. The patient demonstrated knowledge and understanding. They wish to proceed with this procedure. Preparation The patient was prepped in the usual manner. A dry chain puller was present and in the room. Genitalia was prepped with betadine solution in a sterile manner. Procedure Complex Uroflow Complex uroflow performed by: Chelsey Ratliff Maximum urinary flow rate (mL/second): 4.9 Voiding time (seconds): 48 seconds Voided volume (mL): 19ml Residual urine (mL):40ml Cystometrogram ? Vaginal/rectal catheter type: Vaginal First sensation at (mL): 18mL First desire at (mL): 30 mL Strong desire to void occurred at (mL): 164 mL Strong desire detrusor pressure (cm H2O): 1.9 Maximum Capacity (mL): 211 mL Voiding Summary Voided with max detrusor pressure of (cm H2O): 34 Maximum flow rate (mL/second): 19 mL/s Voided volume (mL): ? 209ml Calculated PVR: 0 mL Stress Testing Did not perform due to uncontrolled DO. DO Dry: 184ml, 211ml DO Wet: 211ml Prep: The patient was prepped in the usual manner. A dry chain puller was present and in the room. Genitalia was prepped with betadine solution in a sterile manner. 25357-Gduuiecdkwwmzu w/ UG DESIGNER 82842-Gvhzksz-Wzuzdulikjbb 90997-Fzrz/Urinary Muscle Study 73072-Qnory-Tbwcwsfle Pressure Test Procedure code (CPT) selection complete Office Meds nitrofurantoin monohydrate/macrocrystals 100 mg capsule Performing Provider: Chelsey Ratliff MD Performing [facility] Administered by: Ana Rosa Rubio RN on 12/06/24 11:22 Dose Route Admin Location Dispensed Lot Number Expiration Date NDC Adaptive Physical Education Teacher 100 mg PO 1 cap Results AMB Urinalysis, Automated UA Leukoctes 0 Rayshawn/uL Last Edit by Ana Rosa Rubio RN on 12/06/24 11:27 UA Nitrite Negative Last Edit by Ana Rosa Rubio RN on 12/06/24 11:27 UA Urobilinogen 3.5 mg/dL Last Edit by Ana Rosa Rubio RN on 12/06/24 11:27 UA Protein 0 mg/dL Last Edit by Ana Rosa Rubio RN on 12/06/24 11:27 UA pH 6.0 Last Edit by Ana Rosa Rubio RN on 12/06/24 11:27 UA Blood 0 Jb/uL Last Edit by Ana Rosa Rubio RN on 12/06/24 11:27 UA Specific [place] 1.0 Last Edit by Ana Rosa Rubio RN on 12/06/24 11:27 UA Ketone Negative Last Edit by Ana Rosa Rubio RN on 12/06/24 11:27 UA Bilirubin 0 mg/dL Last Edit by Ana Rosa Rubio RN on 12/06/24 11:27 UA Glucose 0 mg/dL Last Edit by Ana Rosa Rubio RN on 12/06/24 11:27 Results Reviewed Results Reviewed: Laboratory Last Values Urine pH (Auto) 6.0 12/06/24 10:38 Specific [place] (Auto) 1.0 12/06/24 10:38 Urine Protein (Auto) 0 mg/dL 12/06/24 10:38 Glucose (UA)(Auto) 0 mg/dL 12/06/24 10:38 Urine Ketones (Auto) Negative 12/06/24 10:38 Urine Blood (Auto) 0 Jb/uL 12/06/24 10:38 Urine Nitrite (Auto) Negative 12/06/24 10:38 Urine Bilirubin (Auto) 0 mg/dL 12/06/24 10:38 Urine Urobilinogen (Auto) 3.5 mg/dL 12/06/24 10:38 Leukocyte Esterase (Auto) 0 Rayshawn/uL 12/06/24 10:38 Assessment & Plan Assessment & Plan (1) Detrusor overactivity: Code(s): N32.81 - Overactive bladder Category: Medical Plan Plan combination therapy, resume Myrbetriq, add vesicare 5 mg at bedtime. Orders: Orders AMB Urodynamics Studies 12/06/24 N39.46 - Mixed incontinence AMB Urinalysis Automated 12/06/24 Z13.9 - Encounter for screening, unspecified Medications: New solifenacin (Vesicare) 5 mg PO DAILY 90 tabs 3RF Patient Instructions: The patient had an opportunity to ask questions regarding treatment plan. The patient expressed understanding and agreement with the above treatment plan. The patient is aware they should contact our office by phone for worsening of their current condition or the appearance of new symptoms. Compliance is encouraged with any medications and followup testing that is ordered. It is a privilege to be allowed the opportunity to participate in the urologic care of your patient. If you have any questions or concerns regarding treatment for the above conditions please do not hesitate to contact me. The office telephone contact is [phone]. This note is constructed in part using voice recognition software. While every effort has been made to ensure accuracy cabin man errors may have been included. Yours sincerely, Chelsey Ratliff MD Scribe Plan - Not visible on output: Patient was informed and verbally consented to the use of an ambient scribe for clinic note documentation during this visit. Coding Level of Care Code Est Pt Level 4 (71936) Diagnoses Detrusor overactivity N32.81 CPT Codes Urodynamic Studies - CPT: 38243-Bqwfebgdunftnd w/ UG DESIGNER ([id number]) Urodynamic Studies - CPT: 25373-Rbnficp-Ucvzlzsueicm ([id number]) Urodynamic Studies - CPT: 31937-Ubno/Urinary Muscle Study ([id number]) Urodynamic Studies - CPT: 02135-Yrosc-Bomqsexlu Pressure Test ([id number])
== END 2024-12-06 12:07 | disposition home or self-care (01) ==
LOC: HO.HUSH 10:46
PROVIDERS: PCP Internal Medicine; Visit Provider Urology
DX: N32.81 Overactive bladder (principal)
CPT/HCPCS: 51728; 51741; 51784; 51797; 99214

== ENCOUNTER → 2024-12-06 10:45 | Outpatient (BNVA) | payer MEDICARE, SELFPAY | PROVIDERS: PCP Internal Medicine; Visit Provider Urology | DX: N32.81 Overactive bladder (principal) | CPT/HCPCS: 51728; 51741; 51784; 51797; 81003; 99212 ==

== ENCOUNTER → 2024-12-13 10:00 | Outpatient (BNV) | payer MEDICARE, SELFPAY | PROVIDERS: PCP Internal Medicine; Visit Provider Internal Medicine | DX: R92.8 Other abnormal and inconclusive findings on diagnostic imaging of breast (principal) | CPT/HCPCS: 76642; 77065; G0279 ==

== ENCOUNTER 2024-12-13 10:01 | Outpatient (REF) | payer MEDICARE, SELFPAY ==
--- OUTSIDE RECORDS SUMMARY | 2023-10-09 15:25 | XMS_ITS | Encounter Summary ---
Author Organization [facility] Address [address] [place] [address] Phone Care Team Providers Care Assistant Warehouse Manager Name Role Phone Ricco Hill MD Primary Care Provider [phone] Encounter Details Date Type Department Care Team (Late st Contact Info) Description 10/09/2023 3:25 PM EDT Hospital Encounter [facility] [address] [place] [phone] Kisha Roland DNP [address] [place] [address] [email or web address] Social History Tobacco Use Types Packs/Day [...] clinician's provided indication for this examination in [facility]: Pain; Swelling; ? fx COMPARISON: None available. FINDINGS: No fracture. Normal alignment. 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 Procedure Note Jose Real MD, MPH - 10/09/2023 XR WRIST 3 OR MORE VIEWS (LEFT), XR HAND 3 OR MORE VIEWS (LEFT) Referring clinician's provided indication for this examination in [facility]:Pain; Swelling; ? fx COMPARISON: None available. FINDINGS: No fracture. Normal alignment. 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 IMPRESSION: No fracture or dislocation. Kisha Roland [facility] IMG XR UPPER EXTREMITY Final Result documented in this encounter Visit Diagnoses Not on filedocumented in this encounter Care Teams Assistant Warehouse Manager Relationship Specialty Start Date End Date Ricco Hill MD [facility] [place] [address] PCP - General Internal Medicine 10/09/23 documented as of this encounter Additional Source Comments The information contained in this document represents components of the legal health record. It is not the complete legal health record.[facility]
--- NOTE | ~2024-12-13 | US_ITS ---
EXAMINATION: MM DIAGNOSTIC DIGITAL BREAST TOMOSYNTHESIS, LEFT Limited left breast ultrasound. CLINICAL INFORMATION: History of benign left excisional biopsy. Left marker clip from previous needle core biopsy. Patient has recently lost 40 pounds. Call back from screening for distortion in the upper outer left breast with retraction. COMPARISON: Mammography: [facility] on PACS. TECHNIQUE: Digital breast tomosynthesis is performed in both the craniocaudal and mediolateral oblique views along with computer-aided detection (CAD). Synthesized 2D images are generated from the tomosynthesis. FINDINGS: There are scattered areas of fibroglandular density (ACR BI-RADS breast composition Category b). Postsurgical changes in the upper outer breast represent the previously seen distortion with skin retraction which also is result patient's weight loss. Marker clip in the upper outer breast. There are no significant masses, abnormal calcifications, or other abnormalities. Targeted color Doppler ultrasound scanning in the upper outer left breast from 1-4 o'clock demonstrates normal fibronodular breast tissue. There is no sonographic abnormal finding. US/US breast LT limited mamm only IMPRESSION: Postsurgical changes. Benign. ASSESSMENT: BI-RADS BI-RADS 2 - Benign Findings RECOMMENDATION: 1 year F/U Results were provided to the patient at time of visit by the technologist. This patient's information was entered into a reminder system with a target due date for their next mammogram. Electronically signed by: Kacie Prieto DO 12/13/2024 12:10 PM EDT
--- OUTSIDE RECORDS SUMMARY | 2024-12-13 10:11 | XMS_ITS | Clinical Summary ---
Author Organization [facility], Address [address] [place] [address] [place] [address] Phone Care Team Providers Care Leaf Sucker Operator Name Role Phone Ricco Hill MD Primary Care Provider [phone] Allergies Active Allergy Reactions Criticality Noted Date [...] Name Priority Date/Time Associated Diagnosis Comments LAB CORPORATE COMMUNICATIONS INTERN Routine 09/25/2017 12:00 AM EDT from Last 3 Months or Most Recently Relevant to Health Maintenance Results * Lab Hepatologist (09/25/2017 12:00 AM EDT) Carbon Dioxide (CO2) [...] 4.5 mg/dL [facility] 09/25/2017 [facility] Conversion LAB [id number]-[id number]-CJKG LICITED RESULTS Final Result [facility] from Last 3 Months or Most Recently Relevant to Health Maintenance Insurance [facility] Care Teams Leaf Sucker Operator Relationship Specialty Start Date End Date Ricco Hill MD [address] [place] [address] PCP - General 03/19/19
--- OUTSIDE RECORDS SUMMARY | 2024-12-13 10:11 | XMS_ITS | Patient Health Record ---
Author [facility] Address [address] [facility] [place] [address] Care Team Providers Care Precision Crop Manager Name Role Phone DrewJabier Primary Care Provider Neha Roach Unavailable [phone] Yrn Bill Unavailable [phone] Allergies Allergen (clinical drug ingredient) Drug/Non Drug [...] Start Date End Date Status metFORMIN HCl 500 MG 1 tablet with a terell l Orally Once a day Active Citalopram Hydrobromide 20 MG Orally Active Lisinopril 20 MG Orally Act danielle hydroCHLOROthiazide 12.5 MG Orally Active Calcium + D3 Active Vitamin C Active Cetirizine HCl Activ e Extra Depth Orthopedic Shoes (1 Pair) with Customized Heat Molded Multidensity Innersoles (3 Pair) as directed Dx: NIDDM/Polyneuropathy (E11.42), Hammertoe Foot Deformity (M20.41,M20.42), Preulcerative Skin Lesion(s) (L85.1 03/08/2024 Active Omeprazole 20 MG Orally Act danielle ASA 81 mg Not-Taking Lantus 60Unit 48units Active Vitamin D 1000 UNIT Orally Active Immunizations Vaccine Route Administration Date Status [...] Problem Acquired hammer toe of right foot ([id number]) Other hammer toe(s) (acquired), right foot (M20.41) Active confirmed Response to treatment,I mprovement Problem Acquired hammer toe of left foot ([id number]) Other hammer toe(s) (acquired), left foot (M20.42) Active confirmed Response to treatment,I mprovement Problem Type 2 diabetes mellitus 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) Active confirmed Vital Signs Blood pressure diastolic 70 mm Hg 09/10/2024 Height 5ft 7in in 09/10/2024 Blood pressure systolic 128 mm Hg 09/10/2024 Weight 245 lbs 09/10/2024 BMI 38.37 kg/m2 09/10/2024 Procedures Procedure Date Ordered Date Performed Result Body Sit e 67018-JCIANJG NAIL, 1-5 03/08/2024 N/A 68606-CXJZ SKIN LESIONS, OVER 4 03/08/2024 N/A F8020-VFESBLBP DYSTROPHIC NAILS ANY # 03/08/2024 N/A 14126-MKCUDQR NAIL, 1-5 06/07/2024 N/A 30933-UIJX SKIN LESIONS, OVER 4 06/07/2024 N/A Z1223-RUWXSBAW DYSTROPHIC NAILS ANY # 06/07/2024 N/A 06085-LRZICEJ NAIL, 1-5 09/10/2024 N/A 11104-CXDG SKIN LESIONS, OVER 4 09/10/2024 N/A E3785-COZVYHGK DYSTROPHIC NAILS ANY # 09/10/2024 N/A Encounters Encounter Location Date Provider Diagnosis [facility] [address] [place] [address] 03/08/2024 Yrn Bill Type 2 diabetes mellitus with diabetic polyneuropathy E11.42 ; Tinea unguium B35.1 ; Other hammer toe(s) (acquired), right foot M20.41 and Other hammer toe(s) (acquired), left foot M20.[address] [address] 06/07/2024 Yrn Bill Type 2 diabetes mellitus with diabetic polyneuropathy E11.42 ; Tinea unguium B35.1 ; Other hammer toe(s) (acquired), right foot M20.41 and Other hammer toe(s) (acquired), left foot M20.[address] [address] 09/10/2024 Yrn Bill Type 2 diabetes mellitus with diabetic polyneuropathy E11.42 and Tinea unguium B35.[address] [address] 01/08/2024 Neha Horne Assessments Encounter Date Diagnosis [...] X ray : Foot, right 3V 12/23/2022 41507-OCWHIQT NAIL, 1-5 03/08/2024 42137-SKPZHRQ NAIL, 1-5 06/07/2024 74718-ONLJPJO NAIL, 1-5 09/10/2024 88150-OSSA SKIN LESIONS, OVER 4 09/11/19 80483-KHLZ SKIN LESIONS, OVER 4 03/08/20 54951-OFSR SKIN LESIONS, OVER 4 06/07/19 R5977-GRMVOPCA DYSTROPHIC NAILS ANY # N0504-CLUDUFCP DYSTROPHIC NAILS ANY # O8547-OBTMKERO DYSTROPHIC NAILS ANY # Next Appt Details Provider Name:Yrn Bill , 12/13/2024 12:15:00 PM, [address] [place] [address], [id number], Insurance Providers Payer Name Payer Address Payer Phone Subscriber Number Group Number Insured Name Patient Relationship to Insured Coverage Start Date Coverage End Date [employer] 65 Medicare [address] [place] [address] [phone] [id number] Janna Iyer Self - patient is the insured Medical (General) History Medical History History ICD Code Arthritis CAD (Cholesterol) Depression type II diabetes High blood pressure keloids Reflux ( GERD) Vascular phlebitis (clots) Measles Mumps Chicken pox Bone implants/screws Transfusions Surgical History Surgery Date(Month/Year) TK R+ R 10.4 02/09/16 TK R+ R 9. 03 06/02/2016
== END 2024-12-13 10:02 | disposition home or self-care (01) ==
LOC: HO.MAMMO 10:01
PROVIDERS: PCP Internal Medicine; Visit Provider Internal Medicine
DX: N64.89 Other specified disorders of breast (principal)
CPT/HCPCS: 76642; 77061; 77065

== ENCOUNTER 2024-12-18 09:55 | Outpatient (RCR) | payer MEDICARE, SELFPAY ==
[2024-12-06 14:04] VITALS: BP 107/67; PULSE 72
--- NOTE | 2024-12-06 15:00 | MHC.PT.EP ---
[facility] [place] [facility] [place] [facility] [place] Office [address] [phone] F: [phone] F: [phone] F: [phone] F: [phone] Physical Therapy Plan of Care Date of Evaluation: 12/06/24 Date of Surgery: NA Diagnosis: Pain in R hip Unilateral primary OA, R hip Assessment: Janna is a 69 year old female who is referred to PT for pain in R hip, unilateral primary OA of R hip . She reports of having sudden onset of pain in R hip about 3 months back. She denies any trauma or falls but states her pain may have started after exercising in the gym. On PT examination she presents with TTP over R quad and R iliopsoas, 3/10 pain in R hip with walking and SL, R hip gross ROM WFL, decreased strength of R LE, altered posture and gait. She is independent with all ADLS but has pain with them. She is retired. She enjoys going to the gym 3/week and does exercise in the pool everyday. She would benefit from skilled PT to address the aforementioned impairments and improve tolerance to functional activities. Frequency and Duration: The patient will be seen 2/week for 5 weeks Short Term Goals: 1. Pt will have 50% decrease in pain which will enable her to sleep on her side in 2 weeks 2. Pt will be able to move her hip through all planes of motion without pain which will enable her to negotiate stairs without pain in 3 weeks Residence Director Goals: 1. Pt will demonstrate an increase in muscle strength by 1 grade which will enable her to walk and perform her exercises without pain in 5 weeks 2. Pt will be independent with all HEP for symptom management and maintenance following d/c in 5 weeks Treatment Plan: Modalities to reduce pain, spasms and effusion. Manual therapy to restore motion and function. Therapeutic exercise to improve strength and flexibility. Neuromuscular re-education for posture and balance. Therapeutic activities to return to functional activities of daily living. Electronically signed by: Mira Ott PT DPT Please sign and return to therapist. Thank you for your referral.
--- NOTE | 2025-01-06 08:41 | MHC.PT.DC ---
[facility] [place] Office [place] Office [place] Office [address] Gemma Colón [address] [phone] F: [phone] F: [phone] F: [phone] F: [phone] Physical Therapy Discharge Report Diagnosis: Pain in R hip Unilateral primary OA, R hip Date of Surgery: NA Date of Evaluation: 12/06/24 Date of Discharge: 01/06/25 Treatments to Date: 4 Cancellations to Date: No Shows to Date: Discharge Status: Patient Elected to Stop Discharge Summary: Janna d/c herself from PT due to high copay. Electronically signed by: Mira Ott PT DPT Please sign and return to therapist. Thank you for your referral.
== END 2025-01-06 08:42 | disposition home or self-care (01) ==
LOC: HO.PT 09:55
PROVIDERS: PCP Internal Medicine
DX: M25.551 Pain in right hip (principal); M16.11 Unilateral primary osteoarthritis, right hip
CPT/HCPCS: 97110; 97140; 97161

== ENCOUNTER 2024-12-27 10:56 | Outpatient (AMB) | payer MEDICARE, SELFPAY ==
--- OUTSIDE RECORDS SUMMARY | 2023-10-09 15:25 | XMS_ITS | Encounter Summary ---
Author Organization [facility] Address [address] [place] [address] Phone Care Team Providers Care Bead Trimmer Name Role Phone Ricco Hill MD Primary Care Provider [phone] Encounter Details Date Type Department Care Team (Late st Contact Info) Description 10/09/2023 3:25 PM EDT Hospital Encounter [facility] [address] [place] [phone] Kisha Roland DNP [address] [place] [address] [email or web address] Social History Tobacco Use [...] clinician's provided indication for this examination in [facility]: Pain; Swelling; ? fx COMPARISON: None available. FINDINGS: No fracture. Normal alignment. 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 Procedure Note Jose Real MD, MPH - 10/09/2023 XR WRIST 3 OR MORE VIEWS (LEFT), XR HAND 3 OR MORE VIEWS (LEFT) Referring clinician's provided indication for this examination in [facility]:Pain; Swelling; ? fx COMPARISON: None available. FINDINGS: No fracture. Normal alignment. 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 IMPRESSION: No fracture or dislocation. Kisha Roland [facility] IMG XR UPPER EXTREMITY Final Result documented in this encounter Visit Diagnoses Not on filedocumented in this encounter Care Teams Bead Trimmer Relationship Specialty Start Date End Date Ricco Hill MD [facility] [place] [address] PCP - General Internal Medicine 10/09/23 documented as of this encounter Additional Source Comments The information contained in this document represents components of the legal health record. It is not the complete legal health record.[facility]
--- NOTE | 2024-12-27 11:02 | MHC.OFFVIS ---
Vital Signs 12/27/24 11:06 Height 5 ft 7 in Weight 263 lb 14.293 oz BMI 41.3 BP 96/62 Blood Pressure Location Rt brachial Position Sitting Pulse 74 Pulse Source Pulse Oximeter Pulse Oximetry (%) 94 Oxygen Delivery Method Room Air Intake Visit Reasons: T2DM Intake Note: Patient presents today for a follow-up on Type 2 Diabetes Mellitus, last seen by Noemy Fair on 11/05/24. Last Diabetic eye exam was on: 09/2024 Last Podiatry exam was on: 09/10/2024 at [facility] Most recent HbA1c: 6.3% 12/27/2024 Random Glucose- 147 mg/dL, Today Rail Loader Required: No Accompanied by: Self / Same As Patient Allergies medroxyprogesterone (Provera) Allergy (Intermediate, Verified 12/27/24 11:06) SKIN PEELING niacin (From NIASPAN EXTENDED-RELEASE) Allergy (Intermediate, Verified 12/27/24 11:06) facial flushing atorvastatin (From Lipitor) Allergy (Mild, Verified 12/27/24 11:06) MUSCLE ACHES, myalgia gemfibrozil (From Lopid) Allergy (Mild, Verified 12/27/24 11:06) MUSCLE ACHES fluconazole (From DIFLUCAN) Allergy (Unknown, Verified 12/27/24 11:06) PER H&P empagliflozin (From Jardiance) Adverse Reaction (Mild, Verified 12/27/24 11:06) urinary incontinence nitroglycerin (From Nitro-Dur) Adverse Reaction (Mild, Verified 12/27/24 11:06) LOW BLOOD PRESSURE ozempic Adverse Reaction (Intermediate, Uncoded 12/27/24 11:06) Headache HPI Comments Details: Patient is a 69-year-old female with a significant past medical history of prior DVT, on chronic anticoagulation, CKD, diabetic nephropathy, long-term insulin use and hypertension presenting today for a follow-up regarding her diabetes. This is my 1st evaluation with the patient. She was diagnosed with type 2 diabetes 30 years ago. Hemoglobin A1c today is 6.3%. She does not use a CGM because it caused bruising and skin irritation. I reviewed her glucometer download which shows 100% of her blood sugars are within target range. The lowest sugar was 75. Past medication: Ozempic caused headache and nausea. Jardiance caused incontinence. She did not tolerate glyburide. Current medication: Tresiba 40 units bid Mounjaro 5mg weekly Metformin 500mg daily Complications: Nephropathy Denies hypoglycemia/hyperglycemia episodes and symptoms. She has hyperlipidemia but is intolerant to multiple classes of cholesterol medications. Followed by Ophthalmology, Podiatry and Nephrology. She is swimming for exercise and following a healthy diet. She is very active. She is a retired [employer]. ROS: Constitutional: No unexplained weight loss, fever, chills Respiratory: No shortness of breath Cardiovascular: No chest pain Endocrine: No cold or heat intolerance. No polyuria or polydipsia. Physical exam: Constitutional: Alert, in no distress. Head: Normocephalic. Neck: Supple, Full range of motion. No lymphadenopathy. No palpable thyroid masses. Respiratory: Clear to auscultation. Cardiovascular: S1 S2 regular. No murmurs. Psychiatric: Normal mood and affect [facility] Medical History Type 2 diabetes mellitus Urgency incontinence Fatty liver Anxiety and depression Shoulder pain, bilateral Environmental allergies LLL pneumonia Encounter for annual routine gynecological examination Contusion of foot Long-term insulin use Surgical History History of revision of total replacement of right knee joint History of colonoscopy History of total left knee replacement (TKR) History of total right knee replacement (TKR) History of breast biopsy History of tonsillectomy Family History Father Type 2 diabetes mellitus Polymyalgia Mother Cancer of thyroid Sister Breast cancer Sister Leukemia Brother Diabetes mellitus HTN (hypertension) High cholesterol Social History Household Members: None Housing: House Are you a primary foster care social worker to a significant other at home: No Do you presently have visiting nurse or other home services: No Alcohol intake: former Comment: quit 1999 Patient Tobacco Use Status: Former Tobacco user Tobacco use type: Cigarette Years Smoked: stopped 1984 e-Cigarette/Vaping Use: Never Used Advance Directives Date on File: 03/05/20 service: No Current occupational status: employed Cognitive needs: No Hearing needs: No Vision needs: Yes Female Reproductive History Menstrual Age of Menarche: 12 Physical Exam Vital Signs: Last Vital Signs Pulse 74 12/27/24 11:06 BP 96/62 12/27/24 11:06 Pulse Ox 94 12/27/24 11:06 Oxygen Delivery Method Room Air 12/27/24 11:06 BMI result Body Mass Index 41.3 Results AMB Hemoglobin A1c AMB Hemoglobin A1c 6.3 % Last Edit by MELISSA Castillo on 12/27/24 11:23 Results Reviewed Results Reviewed: Laboratory Last Values Glucose (Clinic) 147 mg/dL (60-115) H 12/27/24 11:13 Hgb A1c (Clinic) 6.3 % (4.0-6.0) H 12/27/24 11:17 Assessment & Plan Assessment & Plan (1) Type 2 diabetes mellitus: Code(s): E11.9 - Type 2 diabetes mellitus without complications Category: Medical Qualifiers: Diabetes mellitus supervisor intermediates insulin use: with supervisor intermediates use Diabetes mellitus complication status: with kidney complications Diabetes mellitus complication detail: with nephropathy Qualified Code(s): E11.21 - Type 2 diabetes mellitus with diabetic nephropathy; Z79.4 - assisted (current) use of insulin (2) Long-term insulin use: Code(s): Z79.4 - assisted (current) use of insulin Category: Medical Plan In summary this is a 69-year-old female with controlled type 2 diabetes on Mounjaro, metformin and Tresiba. Reduce Tresiba to 34 units twice daily. Increase Mounjaro to 7.5 mg weekly. She wants to increase the dose to promote weight loss. She will monitor closely for side effects. Continue metformin 500 mg daily. Continue lifestyle modifications. She exercises regularly. She did not tolerate a CGM. She will continue to use a glucometer and bring this to her appointments. She will have labs completed prior to her next visit. Follow up in 3 months or sooner as needed. Orders: Orders AMB Hemoglobin A1c Today E11.21 - Type 2 diabetes mellitus with diabetic nephropathy, Z79.4 - supervisor intermediates (current) use of insulin Vitamin B12 10 Weeks E11.21 - Type 2 diabetes mellitus with diabetic nephropathy, Z79.4 - assisted (current) use of insulin, Z91.89 - Other specified personal risk factors, not elsewhere classified Hemoglobin A1c 10 Weeks E11.21 - Type 2 diabetes mellitus with diabetic nephropathy, R73.9 - Hyperglycemia, unspecified, Z79.4 - assisted (current) use of insulin Microalbumin, Random (w Creat) 10 Weeks E11.9 - Type 2 diabetes mellitus without complications Creatinine 10 Weeks E11.21 - Type 2 diabetes mellitus with diabetic nephropathy, E11.9 - Type 2 diabetes mellitus without complications, Z79.4 - supervisor intermediates (current) use of insulin Aspartate Amino Transferase 10 Weeks E11.21 - Type 2 diabetes mellitus with diabetic nephropathy, Z79.4 - supervisor intermediates (current) use of insulin Alanine Aminotransferase 10 Weeks E11.21 - Type 2 diabetes mellitus with diabetic nephropathy, Z79.4 - assisted (current) use of insulin Lipid Panel 10 Weeks E11.21 - Type 2 diabetes mellitus with diabetic nephropathy, E78.5 - Hyperlipidemia, unspecified, Z79.4 - assisted (current) use of insulin Medications: New tirzepatide (Mounjaro) 7.5 mg (0.5 mL) subcut QWEEK 6 mL 0RF 84 days insulin degludec (Tresiba FlexTouch U-200 insulin) 34 units (0.17 mL) subcut BID 30.6 mL 3RF 90 days Discontinued blood-glucose,phlebotomy technologist,cont (FreeStyle Ara 3 Choudrant) Discontinued Reason: Doctor's Order As directed 1 ea 0RF blood-glucose sensor (FreeStyle Ara 3 Plus Sensor device) Discontinued Reason: Doctor's Order As directed change every 14 days 2 ea 5RF tirzepatide (Mounjaro) Discontinued Reason: Doctor's Order 5 mg (0.5 mL) subcut QWEEK 84 days 6 mL 3RF Basaglar KwikPen U-100 Insulin (insulin glargine) Discontinued Reason: Doctor's Order 40 units (0.4 mL) subcut BID 90 days 72 mL 3RF NS Patient Instructions: If you experience low blood sugar, treat this by eating a chewable fruit candy like skittles or jelly beans (about 8 pieces), 4 ounces (1/2 cup) of fruit juice (not diet), 1 tablespoon of honey or 4 glucose tablets. If your blood sugar is under 50, take double the amount of one of the above. Recheck your blood sugar in 15 minutes. Increase Mounjaro to 7.5 mg weekly Decrease Tresiba to 34 units twice daily Continue Metformin 500 mg daily Coding Level of Care Code Est Pt Level 4 (73812) Complex EM visit Add On G2211 Diagnoses Type 2 diabetes mellitus with diabetic nephropathy, with long-term current use of insulin E11.21; Z79.4 Diabetes mellitus correction insulin use: with correction use Diabetes mellitus complication status: with kidney complications Diabetes mellitus complication detail: with nephropathy Long-term insulin use Z79.4
--- OUTSIDE RECORDS SUMMARY | 2024-12-27 11:05 | XMS_ITS | Clinical Summary ---
Author Organization [facility], Address [address] [place] [address] [place] [address] Phone Care Team Providers Care Gas Meter Repairer Name Role Phone Ricco Hill MD Primary Care Provider [phone] Allergies Active Allergy Reactions Criticality Noted Date [...] Name Priority Date/Time Associated Diagnosis Comments LAB PREPARATORY TECHNICIAN Routine 09/25/2017 12:00 AM EDT from Last 3 Months or Most Recently Relevant to Health Maintenance Results * Lab Mold Bunch Trimmer (09/25/2017 12:00 AM EDT) Carbon Dioxide (CO2) [...] 4.5 mg/dL [facility] 09/25/2017 [facility] Conversion LAB [id number] LICITED RESULTS Final Result [facility] from Last 3 Months or Most Recently Relevant to Health Maintenance Insurance [facility] Care Teams Gas Meter Repairer Relationship Specialty Start Date End Date Ricco Hill MD [address] [place] [address] PCP - General 03/19/19
--- OUTSIDE RECORDS SUMMARY | 2024-12-27 11:05 | XMS_ITS | Patient Health Record ---
Author Organization [facility] Address [address] [place] [address] Care Team Providers Care Sheet Cutting Operator Name Role Phone DrewSuzannecliff Primary Care Provider Neha Roach Unavailable [phone] Yrn Bill Unavailable [phone] Allergies Allergen (clinical drug ingredient) Drug/Non Drug Allergy documented on EMR Reaction Allergy Type Onset Date Status medroxyprogesterone Provera Unknown Drug Allergy Active Latex Latex Unknown Allergy Active Results Component Value Reference Range Notes HEMOGLOBIN A1C (GLYCOHEMOGLO BIN) Reviewed date:06/07/2024 01:07:03 PM Interpretation: Performing Lab: Notes/Report: HEMOGLOBIN A1C % (HH) 7.2 HEMOGLOBIN A1C (GLYCOHEMOGLO BIN) Reviewed date:12/13/2024 12:37:40 PM Interpretation: Performing Lab: Notes/Report: HEMOGLOBIN A1C % (HH) 6.7 Reason For Referral No Information Medications Medication SIG (Take, Route, Frequency, Duration) Notes Start Date End Date Status Extra Depth Orthopedic Shoes (1 Pair) with [...] Vitamin C Active Cetirizine HCl Activ e Immunizations Vaccine Route Administration Date Status Comme nts Influenza Unknown 12/26/2016 Administered Influenza Unknown 06/15/2022 Administered Influenza Unknown 02/13/2024 Administered Social History Tobacco Use: Social History [...] Problem Acquired hammer toe of right foot (6542016867165366 ) Other hammer toe(s) (acquired), right foot (M20.41) Active confirmed Response to treatment, Improvemen t Problem Acquired hammer toe of left foot (7698987364717909 ) Other hammer toe(s) (acquired), left foot (M20.42) Active confirmed Response to treatment, Improvemen t Problem Polyneuropathy due to type 2 diabetes mellitus (226680534) Type 2 diabetes mellitus 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) Active confirmed Vital Signs Blood pressure diastolic 65 mm Hg 12/13/2024 Height 5ft 7in in 12/13/2024 Blood pressure systolic 126 mm Hg 12/13/2024 Weight 245 lbs 12/13/2024 BMI 38.37 kg/m2 12/13/2024 Procedures Procedure Date Ordered Date Performed Result Body Sit e 09144-KXTAGCA NAIL, 1-5 03/08/2024 N/A 92633-SGIO SKIN LESIONS, OVER 4 03/08/2024 N/A O9283-UMVDITKG DYSTROPHIC NAILS ANY # 03/08/2024 N/A 27393-CDNOWLU NAIL, 1-5 06/07/2024 N/A 17398-MYIS SKIN LESIONS, OVER 4 06/07/2024 N/A V3108-DQHITCIJ DYSTROPHIC NAILS ANY # 06/07/2024 N/A 02131-MMUNWGE NAIL, 1-5 09/10/2024 N/A 41187-VMBV SKIN LESIONS, OVER 4 09/10/2024 N/A C7809-BSGIJSZM DYSTROPHIC NAILS ANY # 09/10/2024 N/A 65808-UGFCEMB NAIL, 1-5 12/13/2024 N/A 15530-BMYN SKIN LESIONS, OVER 4 12/13/2024 N/A Q3193-ZHAFYYSC DYSTROPHIC NAILS ANY # 12/13/2024 N/A Encounters Encounter Location Date Provider Diagnosis [address] [address] 03/08/2024 Yrn Fly Type 2 diabetes mellitus with diabetic polyneuropathy E11.42 ; Tinea unguium B35.1 ; Other hammer toe(s) (acquired), right foot M20.41 and Other hammer toe(s) (acquired), left foot M20.[address] [address] 06/07/2024 Yrn Fly Type 2 diabetes mellitus with diabetic polyneuropathy E11.42 ; Tinea unguium B35.1 ; Other hammer toe(s) (acquired), right foot M20.41 and Other hammer toe(s) (acquired), left foot M20.[address] [address] 09/10/2024 Yrn Fly Type 2 diabetes mellitus with diabetic polyneuropathy E11.42 and Tinea unguium B35.[address] [address] 12/13/2024 Yrn Fly Type 2 diabetes mellitus with diabetic polyneuropathy E11.42 and Tinea unguium B35.[address] [address] 01/08/2024 Neha Horne Assessments Encounter Date Diagnosis [...] mellitus with diabetic polyneuropathy (ICD-10 - E11.42) 12/13/2024 Tinea unguium (ICD-10 - B35.1) 12/13/2024 Type 2 diabetes mellitus with diabetic polyneuropathy [...] X ray : Foot, right 3V 12/23/2022 76501-CUOICGP NAIL, 1-5 03/08/2024 02005-GRUJOKH NAIL, 1-5 06/07/2024 54819-IYTPAQD NAIL, 1-5 09/10/2024 33898-VQZLWML NAIL, 1-5 12/13/2024 56231-KAKG SKIN LESIONS, OVER 4 12/14/19 07713-QTQS SKIN LESIONS, OVER 4 06/07/19 71743-XBOB SKIN LESIONS, OVER 4 09/11/19 00954-JNWC SKIN LESIONS, OVER 4 03/08/20 F1962-AAGNKHCQ DYSTROPHIC NAILS ANY # O7801-KTFJKQIQ DYSTROPHIC NAILS ANY # L7761-WNYOKGLQ DYSTROPHIC NAILS ANY # R4635-SZAJBYLK DYSTROPHIC NAILS ANY # Next Appt Details Provider Name:Yrn Bill , 04/04/2025 12:15:00 PM, [address] [place], [address], Insurance Providers Payer Name Payer Address Payer Phone Subscriber Number Group Number Insured Name Patient Relationship to Insured Coverage Start Date Coverage End Date [employer] 65 Medicare Preferred [address] [place] [address] [id number] Janna Iyer Self - patient is the insured Medical (General) History Medical History History ICD Code Arthritis CAD (Cholesterol) Depression type II diabetes High blood pressure keloids Reflux ( GERD) Vascular phlebitis (clots) Measles Mumps Chicken pox Bone implants/screws Transfusions Surgical History Surgery Date(Month/Year) TK R+ R 10.4 02/09/16 TK R+ R 9. 03 06/02/2016
[2024-12-27 11:06] VITALS: BP 96/62; PULSE 74; O2SAT 94; BMI 41.3
[2024-12-27 11:18] LABS: Glucose, Whole Blood 147 mg/dL (60-115)
== END 2024-12-27 12:02 | disposition home or self-care (01) ==
LOC: HO.ENCR 10:56
PROVIDERS: PCP Internal Medicine; Visit Provider Physician Assistant Medical
DX: E11.21 Type 2 diabetes mellitus with diabetic nephropathy (principal); Z79.4 Long term (current) use of insulin

== ENCOUNTER → 2024-12-27 10:56 | Outpatient (BNVA) | payer MEDICARE, SELFPAY | PROVIDERS: PCP Internal Medicine; Visit Provider Physician Assistant Medical | DX: E11.21 Type 2 diabetes mellitus with diabetic nephropathy (principal); Z79.4 Long term (current) use of insulin; E78.5 Hyperlipidemia, unspecified | CPT/HCPCS: 82947; 83036; 99212 ==

== ENCOUNTER 2025-02-12 13:32 | Outpatient (AMB) | payer MEDICARE, SELFPAY ==
--- OUTSIDE RECORDS SUMMARY | 2023-10-09 15:25 | XMS_ITS | Encounter Summary ---
Author Organization [facility] Address [address] [place] [address] Phone Care Team Providers Care Button Clamper Name Role Phone Ricco Hill MD Primary Care Provider [phone] Encounter Details Date Type Department Care Team (Late st Contact Info) Description 10/09/2023 3:25 PM EDT Hospital Encounter [facility] [address] [place] [address] [phone] Kisha Roland, MEDICAL CLAIMS ASSISTANT [address] [place] [address] [email or web address] Social History Tobacco Use Types Packs/Day [...] clinician's provided indication for this examination in [facility]: Pain; Swelling; ? fx COMPARISON: None available. FINDINGS: No fracture. Normal alignment. 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 Procedure Note Jose Real MD, MPH - 10/09/2023 XR WRIST 3 OR MORE VIEWS (LEFT), XR HAND 3 OR MORE VIEWS (LEFT) Referring clinician's provided indication for this examination in [facility]:Pain; Swelling; ? fx COMPARISON: None available. FINDINGS: No fracture. Normal alignment. 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 IMPRESSION: No fracture or dislocation. us Kisha B Whitehill MEDICAL CLAIMS ASSISTANT IMG XR UPPER EXTREMITY Zayra l Result documented in this encounter Visit Diagnoses Not on filedocumented in this encounter Care Teams Button Clamper Relationship Specialty Start Date End Date Ricco Hill MD [facility] [place] [address] PCP - General Internal Medicine 10/09/23 documented as of this encounter Additional Source Comments The information contained in this document represents components of the legal health record. It is not the complete legal health record.[facility]
--- OUTSIDE RECORDS SUMMARY | 2023-10-09 15:27 | XMS_ITS | Encounter Summary ---
Author Organization [facility] Address [address] [place] [address] Phone Care Team Providers Care Preparer Samples And Repairs Name Role Phone Ricco Hill MD Primary Care Provider [phone] Encounter Details Date Type Department Care Team (Late st Contact Info) Description 10/09/2023 3:27 PM EDT Hospital Encounter [facility] [address] [place] [address] [phone] Kisha Roland, FINANCIAL SALES MANAGER [address] [place] [address] [email or web address] Social History Tobacco Use Types Packs/Day [...] clinician's provided indication for this examination in [facility]: Pain; Swelling; ? fx COMPARISON: None available. FINDINGS: No fracture. Normal alignment. 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 Procedure Note Jose Real MD, MPH - 10/09/2023 XR WRIST 3 OR MORE VIEWS (LEFT), XR HAND 3 OR MORE VIEWS (LEFT) Referring clinician's provided indication for this examination in [facility]:Pain; Swelling; ? fx COMPARISON: None available. FINDINGS: No fracture. Normal alignment. 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 IMPRESSION: No fracture or dislocation. us Kisha B Whitehill FINANCIAL SALES MANAGER IMG XR UPPER EXTREMITY Zayra l Result documented in this encounter Visit Diagnoses Not on filedocumented in this encounter Care Teams Preparer Samples And Repairs Relationship Specialty Start Date End Date Ricco Hill MD [facility] [place] [address] PCP - General Internal Medicine 10/09/23 documented as of this encounter Additional Source Comments The information contained in this document represents components of the legal health record. It is not the complete legal health record.[facility]
--- NOTE | 2025-02-12 13:35 | MHC.OFFVIS ---
Intake Visit Reasons: 11w f/u Intake Note: Patient presents today via telehealth for 11w follow up Urology Medications: myrbetriq Blood Thinner:warfarin,apixaban Drum Loader And Unloader Required: No Accompanied by: Self / Same As Patient Allergies medroxyprogesterone (Provera) Allergy (Intermediate, Verified 02/12/25 13:36) SKIN PEELING niacin (From NIASPAN EXTENDED-RELEASE) Allergy (Intermediate, Verified 02/12/25 13:36) facial flushing atorvastatin (From Lipitor) Allergy (Mild, Verified 02/12/25 13:36) MUSCLE ACHES, myalgia gemfibrozil (From Lopid) Allergy (Mild, Verified 02/12/25 13:36) MUSCLE ACHES fluconazole (From DIFLUCAN) Allergy (Unknown, Verified 02/12/25 13:36) PER H&P empagliflozin (From Jardiance) Adverse Reaction (Mild, Verified 02/12/25 13:36) urinary incontinence nitroglycerin (From Nitro-Dur) Adverse Reaction (Mild, Verified 02/12/25 13:36) LOW BLOOD PRESSURE ozempic Adverse Reaction (Intermediate, Uncoded 12/27/24 11:06) Headache HPI Comments Details: 02/12/25--Janna presents as a telehealth follow-up she was last seen on 12/06/2024 for urodynamics findings consistent with detrusor overactivity she is on combination therapy Myrbetriq and VESIcare. History of Present Illness The patient is a 69-year-old female presenting for a follow-up on overactive bladder management. The patient was last seen on December 06, 2024, for urodynamic studies which indicated bladder overactivity. She is currently on combination therapy with Mirabegron (Myrbetriq) 50 mg in the morning and Solifenacin (Vesicare) 5 mg at night. The patient reports significant improvement in symptoms over the past four weeks, with minimal leakage and the ability to wear underwear without pads or liners. She expresses satisfaction with the current treatment regimen and reports no adverse effects. Plan 1. Overactive Bladder - Continue current combination therapy with Mirabegron and Solifenacin. - Refill prescriptions for a 90-day supply. - Schedule a follow-up in one year unless symptoms change. 12/06/24--Janna is here for urodynamics. The patient has complaints of urinary incontinence. Interpretation: During the filling phase there was sensory urgency was noted, strong desire was noted at 164 mL. detrusor overactivity noted during the filling phase. EMG- Appropriate changes in the waveforms were noted through out the study. Discussed OAB care pathway, including fluid management, dietary modifications, including caffeine intake. Bladder control strategies, including pelvic floor exercises. Discessed that urinary leakage can be related to pelvic floor muscles weakness and/or bladder spasms. Treatment options discussed for OAB included anticholinergics/antimuscarinics, neuromodulation, bladder botox injection. Plan combination therapy, resume Myrbetriq, add vesicare 5 mg at bedtime. [facility] Medical History Type 2 diabetes mellitus Urgency incontinence Fatty liver Anxiety and depression Shoulder pain, bilateral Environmental allergies LLL pneumonia Encounter for annual routine gynecological examination Contusion of foot Long-term insulin use Surgical History History of revision of total replacement of right knee joint History of colonoscopy History of total left knee replacement (TKR) History of total right knee replacement (TKR) History of breast biopsy History of tonsillectomy Family History Father Type 2 diabetes mellitus Polymyalgia Mother Cancer of thyroid Sister Breast cancer Sister Leukemia Brother Diabetes mellitus HTN (hypertension) High cholesterol Social History Household Members: None Housing: House Are you a primary healthcare consulting manager to a significant other at home: No Do you presently have visiting nurse or other home services: No Alcohol intake: former Comment: quit 1999 Patient Tobacco Use Status: Former Tobacco user Tobacco use type: Cigarette Years Smoked: stopped 1984 e-Cigarette/Vaping Use: Never Used Advance Directives Date on File: 03/05/20 service: No Current occupational status: employed Cognitive needs: No Hearing needs: No Vision needs: Yes Female Reproductive History Menstrual Age of Menarche: 12 Review of Systems Const All systems reviewed & are unremarkable except as noted in HPI and below Reports no additional complaints Eyes Reports no additional complaints ENT Reports no additional complaints Card Reports no additional complaints Resp Reports no additional complaints GI Reports no additional complaints Reports as per HPI Musc Reports no additional complaints Skin/Breast Reports system reviewed and no additional complaints, except as documented Neuro Reports no additional complaints Psych Reports no additional complaints Endo Reports no additional complaints Bernard/Lymph Reports no additional complaints Aller/Immun Reports no additional complaints Telehealth Telehealth Telehealth Platform: Common[employer] Location of provider rendering services: practice address Location of patient: address on file Patient Identification confirmed using: Name, : Yes Telehealth method: video Patient verbally consented to treatment: Yes Patient verbally consented to billing insurance company: Yes Patient informed of any privacy concerns related to visit: Yes Assessment & Plan Assessment & Plan (1) Detrusor overactivity: Code(s): N32.81 - Overactive bladder Category: Medical Plan Plan Continue combination therapy, Myrbetriq 50 mg qAM, and vesicare 5 mg at bedtime. FU one year monitor PVR, check UA Medications: Refilled mirabegron ER (Myrbetriq) 50 mg PO DAILY 90 tabs 3RF 90 days solifenacin (Vesicare) 5 mg PO DAILY 90 tabs 3RF Scribe Plan - Not visible on output: Patient was informed and verbally consented to the use of an ambient scribe for clinic note documentation during this visit. Coding Level of Care Code Tele Est Pt Level 3 (99896) Diagnoses Detrusor overactivity N32.81
--- OUTSIDE RECORDS SUMMARY | 2025-02-12 14:44 | XMS_ITS | Clinical Summary ---
Author Organization [facility], Address [address] [place] [address] [place] [address] Phone Care Team Providers Care Smart Grid Engineer Name Role Phone Ricco Hill MD Primary Care Provider Allergies Active Allergy Reactions Criticality Noted Date [...] Name Priority Date/Time Associated Diagnosis Comments LAB PUBLICATION SPECIALIST Routine 09/25/2017 12:00 AM EDT from Last 3 Months or Most Recently Relevant to Health Maintenance Results * Lab Weight Loss Consultant (09/25/2017 12:00 AM EDT) Carbon Dioxide [...] 4.5 mg/dL [facility] 09/25/2017 [facility] Conversion LAB [id number] LICITED RESULTS Final Result K[facility]MA from Last 3 Months or Most Recently Relevant to Health Maintenance Insurance [facility] Care Teams Smart Grid Engineer Relationship Specialty Start Date End Date Ricco Hill MD [address] [place] [address] PCP - General 03/19/19
--- OUTSIDE RECORDS SUMMARY | 2025-02-12 14:44 | XMS_ITS | Clinical Summary ---
Author Organization [facility] Address [address] [address] Phone Care Team Providers Care Tie Binder Name Role Phone Ricco Hill MD Primary Care Provider [phone] Allergies Active Allergy Reactions Criticality Noted Date Comments Medroxyprogesterone Other (See Comments) 2019 Other Other (See Comments) 05/29/2019 Medications LANTUS SOLOSTAR U-100 INSULIN 100 unit/mL (3 mL) InPn injection pen INJECT 75 UNITS SUBCUTANEOUSLY 2 TIMES A DAY FOR 90 DAYS 4 Active citalopram (CELEXA) 20 MG tablet Take 1 tablet by mouth every morning. 4 Active hydroCHLOROthi azide 12.5 mg capsule Take 1 capsule by mouth every morning. 4 Active lisinopril (PRINIVIL,ZEST RIL) 20 MG tablet Take 1 tablet by mouth every morning. 4 Active omeprazole (PRILOSEC) 20 MG capsule Take 1 capsule by mouth every morning. 4 Active warfarin (COUMADIN) 10 MG tablet TAKE 1 TABLET BY MOUTH DAILY FOR 5 DAYS & 1.5 TABLETS FOR 2 DAYS 4 Active BD SAUL 2ND GEN PEN NEEDLE 32 gauge x /32 Ndle USE TWICE A DAY NEEDED 4 Active FREESTYLE 28 gauge lancets USE TO CHECK BLOOD SUGAR TWICE DAILY 4 Active FREESTYLE LITE Strp strips USE TO CHECK BLOOD SUGARS TWICE DAILY 4 Active albuterol 90 mcg/actuation inhaler INHALE 2 PUFFS BY MOUTH EVERY 6 HOURS NEEDED FOR WHEEZING FOR 30 DAYS 4 Active Active Problems No known active problems Social History Tobacco Use Types Packs/Day Years Used Date Smoking Tobacco: Former Cigarettes Smokeless Tobacco: Never Tobacco Cessation:Counseling Given: Not Answered Education Answer Date Recorded Are you interested [...] Sign Reading Time Taken Comments Blood Pressure 113/76 10/09/2023 3:07 PM EDT Pulse 74 10/09/2023 3:07 PM EDT Temperature 36.6 C (97.8 F) 10/09/2023 3:07 PM EDT Respiratory Rate 18 10/09/2023 3:07 PM EDT Oxygen Saturation 94% 10/09/2023 3:07 PM EDT Inhaled Oxygen Concentration - - Weight - - Height - - Body Mass Index - - Plan of Treatment Health Maintenance Due Date Last Done Comments CREATININE LEVEL 1957 LIPID PANEL 1957 POTASSIUM LEVEL 1957 DEPRESSION SCREENING 1969 SMOKING Hx and SMOKELESS TOBACCO SCREENING 1970 HEPATITIS C SCREENING 10/27/1975 MAMMOGRAM 1997 COLOGUARD 2002 COLONOSCOPY 2002 COLORECTAL CANCER SCREENING 2002 FIT TEST 2002 FOBT 2002 SIGMOIDOSCOPY 2002 VIRTUAL COLONOSCOPY 2002 PNEUMOCOCCAL VACCINES (50+ years) (1 of 1 - PCV) 10/27/2007 OSTEOPOROSIS SCREENING INITIAL (ONE-TIME) 2022 INFLUENZA VACCINE (#1) 2024 , 06/10/2022, 03/23/2021, Additional history exists COVID-19 VACCINE ( season) 2025 04/03/2023, 02/18/2022, 04/30/2021, Additional history exists Adult Td,Tdap Booster 02/07/2028 02/06/2018 ZOSTER VACCINES Completed 06/03/2019, 02/19/2019 RSV VACCINE Completed 05/03/2023 HEPATITIS A VACCINES Aged Out No long er eligible based on patient's age to complete this topic HIB VACCINES Aged Out No longer eligi ble based on patient's age to complete this topic MENINGOCOCCAL VACCINES (ACWY) Aged Out No longer eligible based on patient's age to complete this topic MENINGOCOCCAL VACCINES (B) Aged Out N o longer eligible based on patient's age to complete this topic Medical Devices Not on file Insurance MEDICARE PPO BLUE [place] [address] [place] [address] MEDICARE PPO [place] [address] [place] [address] MEDICARE PPO [place] [address] [place] [address] MEDICARE PPO [place] [address] [place] [address] MEDICARE PPO [place] [address] [place] [address] MEDICARE PPO BLUE REPLACEMENT Care Teams Tie Binder Relationship Specialty Start Date End Date Ricco Hill MD [facility] [place] [address] PCP - General Internal Medicine 10/09/23 Additional Source Comments The information contained in this document represents components of the legal health record. It is not the complete legal health record.[facility]
== END 2025-02-12 14:16 | disposition home or self-care (01) ==
LOC: HO.HUSH 13:32
PROVIDERS: PCP Internal Medicine; Visit Provider Urology
DX: N32.81 Overactive bladder (principal)
CPT/HCPCS: 99213

== ENCOUNTER 2025-03-26 11:33 | Outpatient (AMB) | payer MEDICARE, SELFPAY ==
--- OUTSIDE RECORDS SUMMARY | 2023-10-09 14:25 | XMS_ITS | Encounter Summary ---
Author Organization [facility] Address [address] [place] [address] Phone Care Team Providers Care Metal Can Inspector Name Role Phone Ricco Hill MD Primary Care Provider [phone] Encounter Details Date Type Department Care Team (Late st Contact Info) Description 10/09/2023 3:25 PM EDT Hospital Encounter [facility] [address] [place] [address] [phone] Kisha Roland, RECEIVER [address] [place] [address] [email or web address] Social History Tobacco Use Types Packs/Day Years Used Date Smoking Tobacco: Former Cigarettes Smokeless Tobacco: Never Education Answer Date Recorded Are you interested in more education? Not on yang e 10/09/2023 Are you concerned about learning? Not on file 10/09/2023 No 10/09/2023 No 10/09/2023 Digital Access Answer Date Recorded No 10/09/2023 No 10/09/2023 Reliable internet access at home? Not on file 10/09/2023 Device with a working camera? Not on file Comments Unknown Sex and Gender Information Value Date Recorded Sex Assigned at Not on file Legal Sex Female 2:38 PM EDT Gender Identity Not on file Sexual Orientation Not on file documented as of this encounter Plan of Treatment Not on file documented as of this encounter Procedures Procedure Name Priority Date/Time Associated Diagnosis Comments XR HAND 3 OR MORE VIEWS (LEFT) Urgent/patient waiting 10/09/2023 3:34 PM EDT Swelling of left hand Swelling of joint of left wrist documented in this encounter Results * XR HAND 3 OR MORE VIEWS (LEFT) (10/09/2023 3:34 PM EDT) Anatomical Region Laterality Modality Hand Left Computed Radiogr aphy 10/09/2023 3:35 PM EDT Impressions 10/09/2023 3:38 PM EDT No fracture or dislocation. Narrative 10/09/2023 3:38 PM EDT XR WRIST 3 OR MORE VIEWS (LEFT), XR HAND 3 OR MORE VIEWS (LEFT) Referring clinician's provided indication for this examination in [facility]: Pain; Swelling; ? fx COMPARISON: None available. FINDINGS: No fracture. Normal alignment. 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 Procedure Note Jose Real MD, MPH - 10/09/2023 XR WRIST 3 OR MORE VIEWS (LEFT), XR HAND 3 OR MORE VIEWS (LEFT) Referring clinician's provided indication for this examination in [facility]:Pain; Swelling; ? fx COMPARISON: None available. FINDINGS: No fracture. Normal alignment. 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 IMPRESSION: No fracture or dislocation. us Kisha B Whitehill RECEIVER IMG XR UPPER EXTREMITY Zayra l Result documented in this encounter Visit Diagnoses Not on filedocumented in this encounter Care Teams Metal Can Inspector Relationship Specialty Start Date End Date Ricco Hill MD [facility] [place] [id number] PCP - General Internal Medicine 10/09/23 documented as of this encounter Additional Source Comments The information contained in this document represents components of the legal health record. It is not the complete legal health record.[facility]
--- OUTSIDE RECORDS SUMMARY | 2023-10-09 14:27 | XMS_ITS | Encounter Summary ---
Author Organization [facility] Address [address] [place] [address] Phone Care Team Providers Care Retail General Manager Name Role Phone Ricco Hill MD Primary Care Provider [phone] Encounter Details Date Type Department Care Team (Late st Contact Info) Description 10/09/2023 3:27 PM EDT Hospital Encounter [facility] [address] [place] [address] [id number] Kisha Roland, CUTTER FIRST [address] [place] [address] [email or web address] Social History Tobacco Use Types Packs/Day Years [...] Name Priority Date/Time Associated Diagnosis Comments XR WRIST 3 OR MORE VIEWS (LEFT) Urgent/patient waiting 10/09/2023 3:33 PM EDT Swelling of left hand Swelling of joint of left wrist documented in this encounter Results * XR WRIST 3 OR MORE VIEWS (LEFT) (10/09/2023 3:33 PM EDT) Anatomical Region Laterality Modality Wrist Left Computed Radiogr aphy 10/09/2023 3:35 PM EDT Impressions 10/09/2023 3:38 PM EDT No fracture or dislocation. Narrative 10/09/2023 3:38 PM EDT XR WRIST 3 OR MORE VIEWS (LEFT), XR HAND 3 OR MORE VIEWS (LEFT) Referring clinician's provided indication for this examination in [facility]: Pain; Swelling; ? fx COMPARISON: None available. FINDINGS: No fracture. Normal alignment. 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 Procedure Note Jose Real MD, MPH - 10/09/2023 XR WRIST 3 OR MORE VIEWS (LEFT), XR HAND 3 OR MORE VIEWS (LEFT) Referring clinician's provided indication for this examination in [facility]:Pain; Swelling; ? fx COMPARISON: None available. FINDINGS: No fracture. Normal alignment. 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 IMPRESSION: No fracture or dislocation. us Kisha B Whitehill C[employer]TER [employer] IMG XR UPPER EXTREMITY Zayra l Result documented in this encounter Visit Diagnoses Not on filedocumented in this encounter Care Teams Retail General Manager Relationship Specialty Start Date End Date Ricco Hill MD [facility] [place] [address] PCP - General Internal Medicine 10/09/23 documented as of this encounter Additional Source Comments The information contained in this document represents components of the legal health record. It is not the complete legal health record.[facility]
--- OUTSIDE RECORDS SUMMARY | 2024-01-09 09:00 | XMS_ITS ---
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 Name Role Phone Jabier Russell Primary Care Provider Unavailabl Neha Adler Unavailable [phone] Yrn Bill Unavailable [phone] Encounters Encounter Location Date Provider Diagnosis [address] [id number] 01/09/2024 Yrn Bill Plan Of Treatment Next Appt Details Provider Name:Yrn Bill , 04/04/2025 12:15:00 PM, [address] [place] [address], [id number], Progress Notes * Janna IYER KaydenDOB:[birth year] (69 yo F)Acc No.[id number]:01/09/2024 Progress Note Patient: Janna HORN Provider: Mary Bill DPM :1955 A ge:68 Y S ex:Female Date:01/09/2024 Address:[address] [place], [place] [id number] Pcp:Jabier Russell Subjective: * Chief Complaints: * * Medical History: Objective: * Vitals: Assessment: Plan: * Treatment: * Images: * The named appointment provid er may or may not be the originator of this progress note, and it is not deemed complete until electronically signed by the appointment provider. Sign off status: Pending * Provider: Mary Bill DPM Date: 0 01/09/2024 Generated for Isamar Aguirre on: 05/26/2024 02:23 PM EST
[2025-03-26 11:43] VITALS: BMI 40.9
--- NOTE | 2025-03-26 11:43 | MHC.OFFVIS ---
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: No Allergies medroxyprogesterone (Provera) Allergy (Intermediate, Verified 03/26/25 11:46) SKIN PEELING niacin (From NIASPAN EXTENDED-RELEASE) Allergy (Intermediate, Verified 03/26/25 11:46) facial flushing atorvastatin (From Lipitor) Allergy (Mild, Verified 03/26/25 11:46) MUSCLE ACHES, myalgia gemfibrozil (From Lopid) Allergy (Mild, Verified 03/26/25 11:46) MUSCLE ACHES fluconazole (From DIFLUCAN) Allergy (Unknown, Verified 03/26/25 11:46) PER H&P empagliflozin (From Jardiance) Adverse Reaction (Mild, Verified 03/26/25 11:46) urinary incontinence nitroglycerin (From Nitro-Dur) Adverse Reaction (Mild, Verified 03/26/25 11:46) LOW BLOOD PRESSURE ozempic Adverse Reaction (Intermediate, Uncoded 03/26/25 11:46) Headache Medication List - Last Reconciled 03/26/25 by Nata Holbrook LPN apixaban (Eliquis) 5 mg PO BID blood sugar diagnostic (FreeStyle Lite Strips) As directed check the BS TID blood-glucose meter (FreeStyle Lite Meter kit) As directed calcium carbonate-vitamin D3 (Calcium 600 + D(3)) 600 mg PO DAILY cholecalciferol (vitamin D3) 50 mcg PO DAILY citalopram 20 mg PO DAILY 90 days hydrochlorothiazide 12.5 mg PO DAILY insulin degludec (Tresiba FlexTouch U-200 insulin) 34 units (0.17 mL) subcut BID 90 days lancets (FreeStyle Lancets) As directed check BS TID lisinopril 10 mg PO DAILY metformin 500 mg PO DAILY 90 days mirabegron ER (Myrbetriq) 50 mg PO DAILY 90 days omeprazole 20 mg PO DAILY pen needle, diabetic (Ginny 2nd Gen Pen Needle) TWICE A DAY NEEDED solifenacin (Vesicare) 5 mg PO DAILY vitamin B complex 1 tab PO DAILY Post menopausal: Yes Patient : No HPI Comments Details: Patient is a postmenopausal woman presenting for her 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 Currently sexually active. Denies any vaginal dryness or irritation. Attempting to eat a healthy diet with calcium and vitamin D and stays active with exercise. Last pap smear; 2021, negative. DEXA scan 2023, normal. Last mammogram; 2024. Colonoscopy is UTD. Family history of breast cancer. [facility] Medical History Type 2 diabetes mellitus Urgency incontinence Fatty liver Anxiety and depression Shoulder pain, bilateral Environmental allergies LLL pneumonia Encounter for annual routine gynecological examination Contusion of foot Long-term insulin use Surgical History History of revision of total replacement of right knee joint History of colonoscopy History of total left knee replacement (TKR) History of total right knee replacement (TKR) History of breast biopsy History of tonsillectomy Family History Father Type 2 diabetes mellitus Polymyalgia Mother Cancer of thyroid Sister Breast cancer Sister Leukemia Brother Diabetes mellitus HTN (hypertension) High cholesterol Social History Household Members: None Housing: House Are you a primary healthcare facility administrator to a significant other at home: No Do you presently have visiting nurse or other home services: No Alcohol intake: former Comment: quit 1999 Patient Tobacco Use Status: Former Tobacco user Tobacco use type: Cigarette Years Smoked: stopped 1984 e-Cigarette/Vaping Use: Never Used Advance Directives Date on File: 03/05/20 service: No Current occupational status: employed Cognitive needs: No Hearing needs: No Vision needs: Yes Female Reproductive History Menstrual Age of Menarche: 12 Menopause type: natural Total pregnancies: 2 Full term: 2 Number of Living Children: 2 Date of last pap smear: 10/08/21 History of abnormal pap smear: Yes History of STI: No Date of Mammogram: 11/01/24 History of abnormal mammogram: Yes (Breast u/s wnl) Date of last Bone Density Screenin01/08/24 Review of Systems Const All systems reviewed & are unremarkable except as noted in HPI and below Reports as per HPI Eyes Reports no additional complaints ENT Reports no additional complaints Card Reports no additional complaints Resp Reports no additional complaints GI Reports as per HPI and Reports no additional complaints Reports as per HPI Musc Reports no additional complaints Skin/Breast Reports as per HPI Neuro Reports no additional complaints Psych Reports no additional complaints Endo Reports no additional complaints Bernard/Lymph Reports no additional complaints Aller/Immun Reports no additional complaints Physical Exam Vital Signs: BMI result Body Mass Index 40.9 Const General: cooperative, healthy appearing, no acute distress, well developed and alert Orientation/consciousness: patient oriented x3 HEENT Head: Yes normal to inspection Eyes General: appearance normal, both eyes and all related structures Neck Neck: Yes normal visual inspection Thyroid: Thyroid normal Chest Chest palpation & inspection: normal inspection of the chest and other (no puckering, dimpling, peau de orange, retraction, discharge, masses) Breast/axilla inspection: normal inspection of the breasts Breast/axilla palpation: normal palpation of the breasts Resp Effort & Inspection: normal respiratory effort GI Inspection: Yes normal to inspection Palpation (GI): Soft to palpation Rectal Exam - Female: deferred General: Yes bladder normal to palpation External Female Exam: normal external appearance and normal appearance of the urethra Speculum Exam - Vagina: normal appearance of the vagina, normal palpation, normal vaginal discharge and vagina atrophic Speculum Exam - Cervix: normal appearance of the cervix and normal palpation Bimanual exam- vagina & uterus: normal bimanual exam, normal palpation, uterine size normal, bladder normal to palpation, normal palpation and non-tender Bimanual Exam- Adnexa, other: no masses Skin General skin exam: no rashes or lesions noted Rashes: no rashes Neuro General: patient oriented x3 Cognition (Neuro): normal cognition Extrem General: Yes normal to inspection Psych Attitude: cooperative Thought process: Normal thought process present Assessment & Plan Assessment & Plan (1) Encounter for well woman exam with routine gynecological exam: Code(s): Z01.419 - Encounter for gynecological examination (general) (routine) without abnormal findings Category: Medical Plan Discussed: Current recommendations for pap smears per ASCCP guidelines. Breast awareness, periodic self breast exams and yearly mammogram. Maintain a healthy lifestyle, well balanced diet including Calcium 1,200 mg and Vitamin D 600 IU daily, and routine exercise. Contact the office with any postmenopausal bleeding. Patient verbalizes understanding and agrees to the plan of care. She was given opportunity to ask questions and all questions were answered to the best of my ability. RTO in 1 year for annual remote inpatient coder exam. This note is constructed using voice recognition software. While every effort has been made to ensure accuracy, library technology instructor errors may have been included. Coding Level of Care Code Est Pt Prev Care >65y(71903) Diagnoses Encounter for well woman exam with routine gynecological exam Z01.419
--- OUTSIDE RECORDS SUMMARY | 2025-03-26 14:23 | XMS_ITS | Patient Health Record ---
[facility] Address [address] [facility] [place] [address] Care Team Providers Care Paper Bag Maker Name Role Phone DrewJabier Primary Care Provider Neha Roach Unavailable [phone] Yrn Bill Unavailable [phone] Allergies Allergen (clinical drug ingredient) Drug/Non Drug Allergy documented on EMR Reaction Allergy Type Onset Date Status medroxyprogesterone Provera Unknown Drug Allergy Active Latex Latex Unknown Allergy Active Results Component Value Reference Range Notes HEMOGLOBIN A1C (GLYCOHEMOGLO BIN) Reviewed date:12/13/2024 12:37:40 [...] Problem Acquired hammer toe of right foot (7455099255434102 ) Other hammer toe(s) (acquired), right foot (M20.41) Active confirmed Response to treatment, Improvemen t Problem Acquired hammer toe of left foot (0331579756986413 ) Other hammer toe(s) (acquired), left foot (M20.42) Active confirmed Response to treatment, Improvemen t Problem Polyneuropathy due to type 2 diabetes mellitus (388996977) Type 2 diabetes mellitus 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) Active confirmed Vital Signs Blood pressure diastolic 65 mm Hg 12/13/2024 Height 5ft 7in in 12/13/2024 Blood pressure systolic 126 mm Hg 12/13/2024 Weight 245 lbs 12/13/2024 BMI 38.37 kg/m2 12/13/2024 Procedures Procedure Date Ordered Date Performed Result Body Sit e 08022-OUIDBWA NAIL, 1-06/07/2024 N/A 90465-QAQD SKIN LESIONS, OVER 4 06/07/2024 N/A U5724-UNIDDSLZ DYSTROPHIC NAILS ANY # 06/07/2024 N/A 94057-CPOLUJV NAIL, 1-5 09/10/2024 N/A 65423-NANW SKIN LESIONS, OVER 4 09/10/2024 N/A Y5525-QSYABBMR DYSTROPHIC NAILS ANY # 09/10/2024 N/A 57469-KYNNBPJ NAIL, 1-5 12/13/2024 N/A 72862-FFQJ SKIN LESIONS, OVER 4 12/13/2024 N/A C1596-ZMMHLPIG DYSTROPHIC NAILS ANY # 12/13/2024 N/A Encounters Encounter Location Date Provider Diagnosis [address] [address] 06/07/2024 Yrn Fly Type 2 diabetes mellitus with diabetic polyneuropathy E11.42 ; Tinea unguium B35.1 ; Other hammer toe(s) (acquired), right foot M20.41 and Other hammer toe(s) (acquired), left foot M20.[address] [address] 09/10/2024 Yrn Fly Type 2 diabetes mellitus with diabetic polyneuropathy E11.42 and Tinea unguium B35.[address] [address] 12/13/2024 Yrn Fly Type 2 diabetes mellitus with diabetic polyneuropathy E11.42 and Tinea unguium B35.1 Assessments Encounter Date Diagnosis (ICD Code) Assessment Notes Treatment Notes Treatment Clinical Notes Section Notes 06/07/2024 Tinea unguium (ICD-10 - B35.1) 06/07/2024 [...] X ray : Foot, right 3V 12/23/2022 47064-WEUJPDC NAIL, 1-5 03/08/2024 14706-LIYOCUU NAIL, 1-5 06/07/2024 10963-DPXKVVA NAIL, 1-5 09/10/2024 59206-OCYBITT NAIL, 1-5 12/13/2024 60015-MKNL SKIN LESIONS, OVER 4 12/14/19 45249-WFQI SKIN LESIONS, OVER 4 06/07/19 05803-BMHY SKIN LESIONS, OVER 4 09/11/19 58977-ISJF SKIN LESIONS, OVER 4 03/08/20 F9083-NFJFTTBM DYSTROPHIC NAILS ANY # O0285-NNOYBGFK DYSTROPHIC NAILS ANY # Y1829-HIGQEHAQ DYSTROPHIC NAILS ANY # J7440-UQSMBITK DYSTROPHIC NAILS ANY # Next Appt Details Provider Name:Yrn Bill , 04/04/2025 12:15:00 PM, [address] [place] [address], [phone], Insurance Providers Payer Name Payer Address Payer Phone Subscriber Number Group Number Insured Name Patient Relationship to Insured Coverage Start Date Coverage End Date [facility] 65 Medicare Preferred [address] [place] [address] [id number] Janna Iyer Self - patient is the insured Medical (General) History Medical History History ICD Code Arthritis CAD (Cholesterol) Depression type II diabetes High blood pressure keloids Reflux ( GERD) Vascular phlebitis (clots) Measles Mumps Chicken pox Bone implants/screws Transfusions Surgical History Surgery Date(Month/Year) TK R+ R 10.4 02/09/16 TK R+ R 9. 03 06/02/2016
--- OUTSIDE RECORDS SUMMARY | 2025-03-26 14:24 | XMS_ITS | Clinical Summary ---
Author Organization [facility] Address [address] [address] Phone Care Team Providers Care Potato Grader Name Role Phone Ricco Hill MD Primary Care Provider [phone] Allergies Active Allergy Reactions Criticality Noted Date [...] 2ND GEN PEN NEEDLE 32 gauge x 5/32 Ndle USE TWICE A DAY NEEDED 4 [...] on patient's age to complete this topic IPV VACCINES Aged Out No longer eligi ble based on patient's age to complete this topic MENINGOCOCCAL VACCINES (ACWY) Aged Out No longer eligible based on patient's age to complete this topic MENINGOCOCCAL VACCINES (B) Aged Out N o longer eligible based on patient's age to complete this topic Medical Devices Not on file Insurance MEDICARE PPO BLUE [place] [address] [place] [address] MEDICARE PPO BLUE REPLACEMENT [facility] MEDICARE PPO BLUE REPLACEMENT [facility] MEDICARE PPO BLUE [place] [address] [place] [address] MEDICARE PPO BLUE REPLACEMENT [place] MEDICARE PPO BLUE REPLACEMENT Care Teams Potato Grader Relationship Specialty Start Date End Date Ricco Hill MD [facility] [place] [address] PCP - General Internal Medicine 10/09/23 Additional Source Comments The information contained in this document represents components of the legal health record. It is not the complete legal health record.[facility]
--- OUTSIDE RECORDS SUMMARY | 2025-03-26 14:24 | XMS_ITS | Clinical Summary ---
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
== END 2025-03-26 13:00 | disposition home or self-care (01) ==
LOC: HO.HWS 11:34
PROVIDERS: PCP Internal Medicine; Visit Provider Advanced Practice Midwife
DX: Z01.419 Encounter for gynecological examination (general) (routine) without abnormal findings (principal)
CPT/HCPCS: 99397; 99459

== ENCOUNTER → 2025-03-26 11:33 | Outpatient (BNVA) | payer MEDICARE, SELFPAY | PROVIDERS: PCP Internal Medicine; Visit Provider Advanced Practice Midwife | DX: Z01.419 Encounter for gynecological examination (general) (routine) without abnormal findings (principal) | CPT/HCPCS: 99397 ==

== ENCOUNTER 2025-03-28 10:57 | Outpatient (AMB) | payer MEDICARE, SELFPAY ==
--- NOTE | 2025-03-28 10:59 | A.OFFVIS_ITS ---
Vital Signs 03/28/25 11:00 Height 5 ft 7 in Weight 263 lb 0.183 oz BMI 41.2 BP 118/66 Blood Pressure Location Lt brachial Position Sitting Pulse 74 Pulse Source Pulse Oximeter Pulse Oximetry (%) 98 Oxygen Delivery Method Room Air Intake Visit Reasons: T2DM Intake Note: Patient presents today for a follow-up on Type 2 Diabetes Mellitus. Last Diabetic eye exam was on:? 09/2024 [facility] Most recent HbA1c: 7.4 Random Glucose- 254 mg/dL, Today Customer Contact Representative Required: No Accompanied by: Self / Same As Patient Allergies medroxyprogesterone (Provera) Allergy (Intermediate, Verified 03/28/25 11:03) SKIN PEELING niacin (From NIASPAN EXTENDED-RELEASE) Allergy (Intermediate, Verified 03/28/25 11:03) facial flushing atorvastatin (From Lipitor) Allergy (Mild, Verified 03/28/25 11:03) MUSCLE ACHES, myalgia gemfibrozil (From Lopid) Allergy (Mild, Verified 03/28/25 11:03) MUSCLE ACHES fluconazole (From DIFLUCAN) Allergy (Unknown, Verified 03/28/25 11:03) PER H&P empagliflozin (From Jardiance) Adverse Reaction (Mild, Verified 03/28/25 11:03) urinary incontinence nitroglycerin (From Nitro-Dur) Adverse Reaction (Mild, Verified 03/28/25 11:03) LOW BLOOD PRESSURE ozempic Adverse Reaction (Intermediate, Uncoded 03/28/25 11:03) Headache Medication List - Last Reconciled 03/28/25 by MEGAN Garnett apixaban (Eliquis) 5 mg PO BID blood sugar diagnostic (FreeStyle Lite Strips) As directed check the BS TID blood-glucose meter (FreeStyle Lite Meter kit) As directed calcium carbonate-vitamin D3 (Calcium 600 + D(3)) 600 mg PO DAILY cholecalciferol (vitamin D3) 50 mcg PO DAILY citalopram 20 mg PO DAILY 90 days dulaglutide (Trulicity) 0.75 mg (0.5 mL) subcut QWEEK hydrochlorothiazide 12.5 mg PO DAILY insulin degludec (Tresiba FlexTouch U-200 insulin) 34 units (0.17 mL) subcut BID 90 days lancets (FreeStyle Lancets) As directed check BS TID lisinopril 10 mg PO DAILY metformin 500 mg PO DAILY 90 days mirabegron ER (Myrbetriq) 50 mg PO DAILY 90 days omeprazole 20 mg PO DAILY pen needle, diabetic (Ginny 2nd Gen Pen Needle) TWICE A DAY NEEDED solifenacin (Vesicare) 5 mg PO DAILY vitamin B complex 1 tab PO DAILY HPI Comments Details: Patient is a 69-year-old female with a significant past medical history of prior DVT, on chronic anticoagulation, CKD, diabetic nephropathy, long-term insulin use and hypertension presenting today for a follow-up regarding her diabetes. She was diagnosed with type 2 diabetes in her late 30s. Hemoglobin A1c today is 7.4%. She does not use a CGM because it caused bruising and skin irritation. I reviewed her glucometer download which shows 40% of glucose readings are within range, highest 223, lowest 140, average 187 and 0.7 readings per day. She stopped Mounjaro, and she has been eating Halloween candy. She attributes some of the dietary indiscretion to running out of her antidepressant. She is taking it again now. Past medication: Ozempic caused headache and nausea. Jardiance caused incontinence. She did not tolerate glyburide. She discontinued Mounjaro 7.5 due to constipation and headaches. Current medication: Tresiba 34 units bid Metformin 500mg daily Complications: Nephropathy Denies hypoglycemia/hyperglycemia episodes and symptoms. She has hyperlipidemia but is intolerant to multiple classes of cholesterol medications. Followed by Ophthalmology, Podiatry and Nephrology. She is swimming for exercise and following a healthy diet. She is very active. 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 ROS: Constitutional: No unexplained weight loss, fever, chills Respiratory: No shortness of breath Cardiovascular: No chest pain Endocrine: No cold or heat intolerance. No polyuria or polydipsia. Physical exam: Constitutional: Alert, in no distress. Head: Normocephalic. Neck: Supple, Full range of motion. No lymphadenopathy. No palpable thyroid masses. Respiratory: Clear to auscultation. Cardiovascular: S1 S2 regular. No murmurs. Psychiatric: Normal mood and affect Feet: No edema or open wounds [facility], [facility] Medical History Type 2 diabetes mellitus Urgency incontinence Fatty liver Anxiety and depression Shoulder pain, bilateral Environmental allergies LLL pneumonia Encounter for annual routine gynecological examination Contusion of foot Long-term insulin use Surgical History History of revision of total replacement of right knee joint History of colonoscopy History of total left knee replacement (TKR) History of total right knee replacement (TKR) History of breast biopsy History of tonsillectomy Family History Father Type 2 diabetes mellitus Polymyalgia Mother Cancer of thyroid Sister Breast cancer Sister Leukemia Brother Diabetes mellitus HTN (hypertension) High cholesterol Social History Household Members: None Housing: House Are you a primary assistant child care teacher to a significant other at home: No Do you presently have visiting nurse or other home services: No Alcohol intake: former Comment: quit 1999 Patient Tobacco Use Status: Former Tobacco user Tobacco use type: Cigarette Years Smoked: stopped 1984 e-Cigarette/Vaping Use: Never Used Advance Directives Date on File: 03/05/20 service: No Current occupational status: employed Cognitive needs: No Hearing needs: No Vision needs: Yes Female Reproductive History Menstrual Age of Menarche: 12 Physical Exam Vital Signs: Last Vital Signs Pulse 74 03/28/25 11:00 BP 118/66 03/28/25 11:00 Pulse Ox 98 03/28/25 11:00 Oxygen Delivery Method Room Air 03/28/25 11:00 BMI result Body Mass Index 41.2 Results AMB Hemoglobin A1c AMB Hemoglobin A1c 7.4 % Last Edit by Alena Albarran CMA on 03/28/25 11:29 Results Reviewed Results Reviewed: Laboratory Last Values Glucose (Clinic) 254 mg/dL (60-115) H 03/28/25 11:15 Hgb A1c (Clinic) 7.4 % (4.0-6.0) H 03/28/25 11:23 Laboratory Tests 12/27/23 03/25/24 09/10/24 09:07 07:00 11:10 Creatinine Estimated GFR AST ALT Triglycerides 278 H Cholesterol 193 LDL Cholesterol, Calc 109 H HDL Cholesterol 29 L Urine Creatinine 106.54 96.65 Urine Microalbumin 163.0 Microalb/Creat Ratio 152.9 H 11/27/24 12:51 Creatinine 1.26 Estimated GFR 42 AST 28 ALT 24 Triglycerides Cholesterol LDL Cholesterol, Calc HDL Cholesterol Urine Creatinine Urine Microalbumin Microalb/Creat Ratio Assessment & Plan Assessment & Plan (1) Type 2 diabetes mellitus: Code(s): E11.9 - Type 2 diabetes mellitus without complications Category: Medical Qualifiers: Diabetes mellitus complication detail: with nephropathy Diabetes mellitus complication status: with kidney complications Diabetes mellitus exterminator termite insulin use: with mcc use Qualified Code(s): E11.21 - Type 2 diabetes mellitus with diabetic nephropathy; 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 Continue Tresiba to 34 units twice daily. She will try Trulicity 0.75 mg weekly. Side effects reviewed. Continue metformin 500 mg daily. Continue lifestyle modifications. She exercises regularly. She did not tolerate a CGM. She will continue to use a glucometer and bring this to her appointments. She declined 1 month follow up for med check. She will message me through the patient portal with an update about how she is doing on Trulicity and schedule an appointment in 3 months. Orders: Orders AMB Hemoglobin A1c Today E11.21 - Type 2 diabetes mellitus with diabetic nephropathy, Z79.4 - prison (current) use of insulin Medications: New dulaglutide (Trulicity) 0.75 mg (0.5 mL) subcut QWEEK 2 mL 0RF Coding Level of Care Code Est Pt Level 4 (32378) Complex EM visit Add On G2211 Diagnoses Type 2 diabetes mellitus with diabetic nephropathy, with long-term current use of insulin E11.21; Z79.4 Diabetes mellitus complication detail: with nephropathy Diabetes mellitus complication status: with kidney complications Diabetes mellitus exterminator termite insulin use: with exterminator termite use Long-term insulin use Z79.4
[2025-03-28 11:00] VITALS: BP 118/66; PULSE 74; O2SAT 98; BMI 41.2
[2025-03-28 11:22] LABS: Glucose, Whole Blood 254 mg/dL (60-115)
== END 2025-03-28 11:48 | disposition home or self-care (01) ==
LOC: HO.ENCR 10:57
PROVIDERS: PCP Internal Medicine; Visit Provider Physician Assistant Medical
DX: E11.21 Type 2 diabetes mellitus with diabetic nephropathy (principal); Z79.4 Long term (current) use of insulin

== ENCOUNTER → 2025-03-28 10:57 | Outpatient (BNVA) | payer MEDICARE, SELFPAY | PROVIDERS: PCP Internal Medicine; Visit Provider Physician Assistant Medical | DX: E11.21 Type 2 diabetes mellitus with diabetic nephropathy (principal); Z79.4 Long term (current) use of insulin | CPT/HCPCS: 82947; 83036; 99212 ==